=== PATIENT | male | born 1955 | race Caucasian/White ===

== ENCOUNTER 2016-08-05 16:05 | Inpatient (IN) | payer OTHER, BC ==
--- NOTE | 2016-08-05 16:14 | PDOC ---
History of Present Illness - General History Source: Patient Exam Limitations: No Limitations - History of Present Illness Initial Comments: 08/05/16 16:23 The patient is a 60 year old male with a significant past medical history of asthma/COPD, dystonia, HTN, neurogenic bladder s/p suprapubic catheter placement (10 years) who presents to the ED with complaints of fever since earlier today. The patient reports he woke up this morning freezing cold. Upon arrival to the ED the patient had a fever of 102.6 F. The patient also reports pain to the suprapubic area, at the site of the catheter. Patient states he got the flu shot this year. Denies chest pain or shortness of breath. Denies any other symptoms. <Treasure Rodriguez - Last Filed: 08/05/16 18:40> <Haile Walker - Last Filed: 08/05/16 19:12> - General Stated Complaint: FEVER Time Seen by Provider: 08/05/16 16:14 Past History <Treasure Rodriguez - Last Filed: 08/05/16 18:40> - Past Medical History Asthma: Yes COPD: Yes GI Disorders: Yes (GERD) Disorders: Yes (NEUROGENIC BLADDER) HTN: Yes - Surgical History GI Surgery: Yes (supra pubic sx) Neurologic Surgery: Yes (cervical fusion) Orthopedic Surgery: Yes - Immunization History Immunization Up to Date: Yes - Psycho/Social/Smoking Cessation Hx Anxiety: No Suicidal Ideation: No Smoking History: Never smoked Have you smoked in the past 12 months: No Number of Cigarettes Smoked Daily: 0 Cigars Per Day: 0 Hx Alcohol Use: No Drug/Substance Use Hx: No Substance Use Type: Alcohol Hx Substance Use Treatment: No <Haile Walker - Last Filed: 08/05/16 19:12> - Past Medical History Allergies/Adverse Reactions: Allergies Allergy/AdvReac Type Severity Reaction Status Date / Time iodine Allergy Severe Low Blood Verified 08/05/16 16:13 Pressure kiwi Allergy Intermediate Swelling Verified 08/05/16 16:13 ampicillin sodium Allergy Rash Verified 08/05/16 16:13 [From Unasyn] Fish Containing Products Allergy Difficulty Verified 08/05/16 16:13 Breathing Penicillins Allergy Rash Verified 08/05/16 16:13 sulbactam sodium Allergy Rash Verified 08/05/16 16:13 [From Unasyn] Sulfa (Sulfonamide Allergy Hives Verified 08/05/16 16:13 Antibiotics) [Sulfa(Sulfonamide Antibiotics)] Home Medications: Ambulatory Orders Diazepam [Valium] 5 mg GT TID 04/23/14 Albuterol Sulfate [Proair Hfa -] 1 - 2 inh PO QID PRN 04/12/15 Budesonide/Formeterol Fumarate [SYMBICORT 160/4.5mcg -] 2 inh PO BID 04/12/15 Methenamine/Sodium Salicylate [Cystex Plus Tablet] 1 each GT DAILY 04/12/15 Heparin - 5,000 unit SQ BID vial 04/25/16 Albuterol 0.083% Nebulizer Jojo [Ventolin 0.083% Nebulizer Soln -] 1 amp NEB TID PRN 08/05/16 Docusate Sodium [Colace -] 300 mg GT HS 08/05/16 Metoclopramide HCl 5 mg GT BID 08/05/16 Polyethylene Glycol 3350 [Miralax (For Daily Use) -] 17 gm GT DAILY PRN Ranitidine [Zantac -] 150 mg GT BID 08/05/16 Tramadol HCl 50 mg GT Q6H PRN 08/05/16 Review of Systems - Review of Systems Able to Perform ROS?: Yes Comments:: 08/05/16 16:23 GENERAL/CONSTITUTIONAL: + fever. No weakness. HEAD, EYES, EARS, NOSE AND THROAT: No change in vision. No ear pain or discharge. No sore throat. CARDIOVASCULAR: No chest pain or shortness of breath. RESPIRATORY: No cough, wheezing, or hemoptysis. GASTROINTESTINAL: No nausea, vomiting, diarrhea or constipation. GENITOURINARY:+ suprapubic pain. No dysuria, frequency, or change in urination. MUSCULOSKELETAL: No joint or muscle swelling or pain. No neck or back pain. SKIN: No rash NEUROLOGIC: No headache, vertigo, loss of consciousness, or change in strength/ sensation. ENDOCRINE: No increased thirst. No abnormal weight change. HEMATOLOGIC/LYMPHATIC: No anemia, easy bleeding, or history of blood clots. ALLERGIC/IMMUNOLOGIC: No hives or skin allergy. All Other Systems: Reviewed and Negative <Treasure Rodriguez - Last Filed: 08/05/16 18:40> *Physical Exam - Physical Exam Comments: 08/05/16 16:23 GENERAL: Awake, alert, and fully oriented, in no acute distress HEAD: No signs of trauma EYES: PERRLA, EOMI, sclera anicteric, conjunctiva clear ENT: Auricles normal inspection, hearing grossly normal, nares patent, oropharynx clear without exudates. Moist mucosa NECK: Normal ROM, supple, no lymphadenopathy, JVD, or masses LUNGS: Breath sounds equal, clear to auscultation bilaterally. No wheezes, and no crackles HEART: Regular rate and rhythm, normal S1 and S2, no murmurs, rubs or gallops ABDOMEN: Soft, nontender, normoactive bowel sounds. No guarding, no rebound. No masses PELVIS: + Suprapubic catheter in place, suprapubic pain EXTREMITIES: Normal range of motion, no edema. No clubbing or cyanosis. No cords, erythema, or tenderness NEUROLOGICAL: Cranial nerves II through XII grossly intact. Normal speech, normal gait SKIN: Warm, Dry, normal turgor, no rashes or lesions noted. <Treasure Rodriguez - Last Filed: 08/05/16 18:40> Heart Score/ECG Review #1 08/05/16 18:40 Vent. rate 73 bpm AL interval 154 ms QRS duration 136 ms Normal sinus rhythm Right bundle branch block Left anterior fascicular block <Treasure Rodriguez - Last Filed: 08/05/16 18:40> ED Treatment Course - LABORATORY CBC & Chemistry Diagram: 08/05/16 17:20 08/05/16 17:20 <Treasure Rodriguez - Last Filed: 08/05/16 18:40> - LABORATORY CBC & Chemistry Diagram: 08/05/16 17:20 08/05/16 17:20 <Haile Walker - Last Filed: 08/05/16 19:12> *DC/Admit/Observation/Transfer - Attestations Scribe Attestion: 08/05/16 16:23 Documentation prepared by Treasure Rodriguez, acting as medical services assistant for Haile Walker MD <Treasure Rodriguez - Last Filed: 08/05/16 18:40> - Discharge Dispostion Admit: Yes - Attestations Physician Attestion: 08/05/16 16:14 I, Dr. Haile Walker, attest that this document has been prepared under my direction and personally reviewed by me in its entirety. I further attest, that it accurately reflects all work, treatment, procedures and medical decision -making performed by me. <Haile Walker - Last Filed: 08/05/16 19:12> Diagnosis at time of Disposition: Urinary tract infection after period of immobility Fever Qualifiers: Fever type: unspecified Qualified Code(s): R50.9 - Fever, unspecified Urinary tract infection Qualifiers: Urinary tract infection type: acute cystitis Hematuria presence: without hematuria Qualified Code(s): N30.00 - Acute cystitis without hematuria Suprapubic catheter dysfunction Qualifiers: Encounter type: sequela Qualified Code(s): T83.010S - Breakdown (mechanical) of cystostomy catheter, sequela - Discharge Dispostion Condition at time of disposition: Improved - Referrals Referrals: Abad Tanner MD [Primary Care Provider] -
[2016-08-05] MEDS ORDERED: SODIUM CHLORIDE 0.9% 1000 ML INFUS.BAG IV STA (16:20)
[2016-08-05] MEDS ORDERED: LEVOFLOXACIN 750 MG IVPB 150 ML IVPB ONE ×2 (16:22→16:28)
[2016-08-05] MEDS ORDERED: ACETAMINOPHEN 1000 MG/100 ML VIAL (NON FORMULARY) IVPB ONE (16:37)
[2016-08-05 17:27] VITALS: BMI 16.5
[2016-08-05 17:30] LABS: BASOPHIL 0.2 % (0-2.0); EOSINOPHIL 0.3 % (0-4.5); MCH 32.5 pg (25.7-33.7); MCHC 34.4 g/dl (32.0-35.9); MEAN CELL VOLUME 94.5 fl (80-96); MEAN PLT VOLUME 9.2 fl (7.5-11.1); NEUTROPHILS 84.9 % (42.8-82.8); PLATELET COUNT 194 K/MM3 (134-434); RDW 12.4 % (11.9-15.9); WHITE BLOOD COUNT 15.5 K/mm3 (4.0-10.0)
[2016-08-05 17:35] LABS: URINE APPEARANCE SLCLOUDY; URINE BILIRUBIN NEGATIVE (NEGATIVE); URINE BLOOD NEGATIVE (NEGATIVE); URINE COLOR YELLOW; URINE GLUCOSE (UA) NEGATIVE (NEGATIVE); URINE KETONE NEGATIVE (NEGATIVE); URINE LEUK ESTERASE 2+ (NEGATIVE); URINE NITRITE POSITIVE (NEGATIVE); URINE PROTEIN 1+ (NEGATIVE); URINE UROBILINOGEN NEGATIVE E.U./dl (0.2-1.0)
[2016-08-05 17:38] LABS: URINE MUCUS RARE; URINE RBC 5 /hpf (0-3); URINE WBC 58 /hpf (3-5)
[2016-08-05] MEDS ORDERED: ACETAMINOPHEN INJECTION 100 ML IVPB ONE (17:40)
[2016-08-05 17:42] LABS: INR 1.13 (0.82-1.09); PROTHROMBIN TIME (PATIENT) 12.5 SEC (9.98-11.88)
[2016-08-05 17:44] LABS: ACTIVATED PTT 31.2 SECONDS (26.9-34.4)
[2016-08-05 17:53] LABS: VENOUS PH 7.44 (7.32-7.42)
[2016-08-05 17:57] LABS: ALBUMIN 3.8 g/dl (3.4-5.0); ANION GAP 8 (8-16); CALCIUM 8.7 mg/dL (8.5-10.1); CO2 28 mmol/L (21-32); CREATININE 0.7 mg/dL (0.7-1.3); GLUCOSE,RANDOM 61 mg/dL (74-106); SGPT/ALT 42 U/L (12-78)
[2016-08-05 18:01] LABS: ALK PHOS 71 U/L (45-117); BILIRUBIN,TOTAL 0.9 mg/dL (0.2-1.0); TOT PROT 6.8 g/dl (6.4-8.2); TROPONIN I < 0.02 ng/ml (0.00-0.05)
[2016-08-05 18:02] LABS: SGOT/AST 31 U/L (15-37)
[2016-08-05] MEDS ORDERED: ALBUTEROL SO4 6.7 GM HFA INHALER IH PRN (20:18)
[2016-08-05] MEDS ORDERED: POLYETHYLENE GLYCOL 3350 119 GM BTL GT PRN (20:18)
[2016-08-05] MEDS ORDERED: ALBUTEROL SO4 0.083% IH SOL 2.5 MG/3 ML VIAL.NEB. NEB PRN (20:18)
[2016-08-05] MEDS ORDERED: ACETAMINOPHEN 650 MG/20.3 ML ORAL SOLUTION (CUPS) PEG PRN (20:29)
--- NOTE | 2016-08-05 21:53 | HP ---
Admitting History and Physical - Admission Chief Complaint: suprapubic pain, fever History of Present Illness: 60 yo male, h/o dystonia, status-suprapubic catheter, status PEG tube, presents with pain in suprapubic area of burning quality, which he relates similar to prior UTI's. Also having fever of 102. Due to dystonia, resides at nursing facility, transferred due to fever. 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: Other (Muscular dystonia since age 21 year) Cardiovascular: Yes: HTN Pulmonary: Yes: Asthma, Pneumonia, Sleep Apnea, Other (Cavitary lesion in lung ruled out for TB) Gastrointestinal: Yes: Constipation, GERD, Other (dysphagia) Hepatobiliary: Yes: Other (as noted in medical record.) Renal/: Yes: BPH (s/p thermal prostate procedure), Neurogenic Bladder ( suprapubic tube ), UTI Heme/Onc: Yes: Other (as noted in medical record) Infectious Disease: Yes: Other (influenza b august 2013) Psych: Yes: Depression Musculoskeletal: Yes: Other (Muscular dystonia) - Past Surgical History Past Surgical History: Yes: Laminectomy (cervical laminectomy with fusion) - Smoking History Smoking history: Never smoked Have you smoked in the past 12 months: No Aproximately how many cigarettes per day: 0 - Alcohol/Substance Use Hx Alcohol Use: No History of Substance Use: reports: None, Marijuana (years ago. 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 History of Recent Travel: No Home Medications - Allergies Allergies/Adverse Reactions: Allergies Allergy/AdvReac Type Severity Reaction Status Date / Time iodine Allergy Severe Low Blood Verified 08/05/16 16:13 Pressure kiwi Allergy Intermediate Swelling Verified 08/05/16 16:13 ampicillin sodium Allergy Rash Verified 08/05/16 16:13 [From Unasyn] Fish Containing Products Allergy Difficulty Verified 08/05/16 16:13 Breathing Penicillins Allergy Rash Verified 08/05/16 16:13 sulbactam sodium Allergy Rash Verified 08/05/16 16:13 [From Unasyn] Sulfa (Sulfonamide Allergy Hives Verified 08/05/16 16:13 Antibiotics) [Sulfa(Sulfonamide Antibiotics)] - Home Medications Home Medications: Ambulatory Orders Diazepam [Valium] 5 mg GT TID 04/23/14 Albuterol Sulfate [Proair Hfa -] 1 - 2 inh PO QID PRN 04/12/15 Budesonide/Formeterol Fumarate [SYMBICORT 160/4.5mcg -] 2 inh PO BID 04/12/15 Methenamine/Sodium Salicylate [Cystex Plus Tablet] 1 each GT DAILY 04/12/15 Heparin - 5,000 unit SQ BID vial 04/25/16 Albuterol 0.083% Nebulizer Jojo [Ventolin 0.083% Nebulizer Soln -] 1 amp NEB TID PRN 08/05/16 Docusate Sodium [Colace -] 300 mg GT HS 08/05/16 Metoclopramide HCl 5 mg GT BID 08/05/16 Polyethylene Glycol 3350 [Miralax (For Daily Use) -] 17 gm GT DAILY PRN Ranitidine [Zantac -] 150 mg GT BID 08/05/16 Tramadol HCl 50 mg GT Q6H PRN 08/05/16 Family Disease History - Family Disease History Family Disease History: Diabetes: Father (mild cognitive decline), Heart Disease : Father, CA: Mother (, colon cancer), Other: Father Review of Systems - Review of Systems Constitutional: reports: Fever Eyes: reports: No Symptoms HENT: reports: Difficult Swallowing (feeds via G-tube) Neck: reports: Stiffness (due to dystonia) Cardiovascular: denies: Chest Pain, Palpitations Respiratory: denies: Cough, SOB, Wheezing Gastrointestinal: denies: Diarrhea, Nausea, Vomiting Neurological: reports: Pre-Existing Deficit (muscular dystonia) Physical Examination Vital Signs: Vital Signs Temperature 98.7 F 08/05/16 20:46 Pulse Rate 62 08/05/16 20:46 Respiratory Rate 20 08/05/16 20:46 Blood Pressure 112/60 08/05/16 20:46 O2 Sat by Pulse Oximetry (%) 95 08/05/16 20:46 Constitutional: Yes: No Distress, Calm Eyes: Yes: Conjunctiva Clear, EOM Intact, PERRL HENT: Yes: Atraumatic, Normocephalic Neck: Yes: Supple, Trachea Midline Cardiovascular: Yes: Regular Rate and Rhythm, S1, S2. No: Murmur Respiratory: Yes: Regular, CTA Bilaterally. No: Rales, Rhonchi, Wheezes Gastrointestinal: Yes: Normal Bowel Sounds, Soft, Other (G-tube present). No: Distention, Tenderness Renal/: Yes: Other (suprapubic tube present) Edema: No Neurological: Yes: Alert, Oriented, Pre-Existing Deficit (paresis due to dystonia) Labs: Laboratory Tests 08/05/16 08/05/16 08/05/16 17:20 17:20 17:20 WBC 15.5 H D RBC 4.36 Hgb 14.2 D Hct 41.2 D MCV 94.5 MCHC 34.4 RDW 12.4 D Plt Count 194 D MPV 9.2 D Neutrophils % 84.9 H Lymphocytes % 4.6 L D Monocytes % 10.0 Eosinophils % 0.3 Basophils % 0.2 INR 1.13 PTT (Actin FS) 31.2 VBG pH POC VBG pCO2 POC VBG pO2 Mixed VBG HCO3 Sodium Potassium Chloride Carbon Dioxide Anion Gap BUN Creatinine Creat Clearance w eGFR Random Glucose Lactic Acid Calcium Total Bilirubin AST ALT Alkaline Phosphatase Creatine Kinase Troponin I Total Protein Albumin Urine Color Yellow Urine Appearance Slcloudy Urine pH 9.0 H D Ur Specific [place] 1.018 Urine Protein 1+ H Urine Glucose (UA) Negative Urine Ketones Negative Urine Blood Negative Urine Nitrite Positive Urine Bilirubin Negative Urine Urobilinogen Negative Ur Leukocyte Esterase 2+ H D Urine RBC 5 Urine WBC 58 Ur Epithelial Cells Rare Urine Mucus Rare Blood Type Antibody Screen 08/05/16 08/05/16 08/05/16 17:20 17:20 17:20 WBC RBC Hgb Hct MCV MCHC RDW Plt Count MPV Neutrophils % Lymphocytes % Monocytes % Eosinophils % Basophils % INR PTT (Actin FS) VBG pH POC VBG pCO2 POC VBG pO2 Mixed VBG HCO3 Sodium 135 L Potassium 4.4 Chloride 99 Carbon Dioxide 28 Anion Gap 8 BUN 23 H Creatinine 0.7 D Creat Clearance w eGFR > 60 Random Glucose 61 L D Lactic Acid 0.945 Calcium 8.7 Total Bilirubin 0.9 D AST 31 ALT 42 D Alkaline Phosphatase 71 D Creatine Kinase 86 Troponin I < 0.02 Total Protein 6.8 D Albumin 3.8 D Urine Color Urine Appearance Urine pH Ur Specific [place] Urine Protein Urine Glucose (UA) Urine Ketones Urine Blood Urine Nitrite Urine Bilirubin Urine Urobilinogen Ur Leukocyte Esterase Urine RBC Urine WBC Ur Epithelial Cells Urine Mucus Blood Type A POSITIVE Antibody Screen Negative 08/05/16 17:40 WBC RBC Hgb Hct MCV MCHC RDW Plt Count MPV Neutrophils % Lymphocytes % Monocytes % Eosinophils % Basophils % INR PTT (Actin FS) VBG pH 7.44 H POC VBG pCO2 45.2 POC VBG pO2 43.3 D Mixed VBG HCO3 30.0 H Sodium Potassium Chloride Carbon Dioxide Anion Gap BUN Creatinine Creat Clearance w eGFR Random Glucose Lactic Acid Calcium Total Bilirubin AST ALT Alkaline Phosphatase Creatine Kinase Troponin I Total Protein Albumin Urine Color Urine Appearance Urine pH Ur Specific [place] Urine Protein Urine Glucose (UA) Urine Ketones Urine Blood Urine Nitrite Urine Bilirubin Urine Urobilinogen Ur Leukocyte Esterase Urine RBC Urine WBC Ur Epithelial Cells Urine Mucus Blood Type Antibody Screen Imaging - Results Chest X-ray: Image Reviewed (no acute ling disease, no infiltrates or effusions) Problem List - Problems (1) Urinary tract infection Assessment/Plan: -start abx, check urine culture Code(s): N39.0 - URINARY TRACT INFECTION, SITE NOT SPECIFIED Qualifiers: Urinary tract infection type: acute cystitis Hematuria presence: without hematuria Qualified Code(s): N30.00 - Acute cystitis without hematuria (2) Suprapubic catheter dysfunction Assessment/Plan: -urology consult for suprapubic catheter change Code(s): T83.018A - BREAKDOWN (MECHANICAL) OF OTHER URINARY CATHETER, INIT Qualifiers: Encounter type: sequela Qualified Code(s): T83.010S - Breakdown ( mechanical) of cystostomy catheter, sequela (3) COPD (chronic obstructive pulmonary disease) Assessment/Plan: -cont prn bronchodilators Code(s): J44.9 - CHRONIC OBSTRUCTIVE PULMONARY DISEASE, UNSPECIFIED Qualifiers : Chronic bronchitis type: unspecified (4) Cavitary lesion of lung Assessment/Plan: -stable (s/p VATS) Code(s): J98.4 - OTHER DISORDERS OF LUNG (5) Dysphagia Assessment/Plan: -PEG tube present/ Peg feeds Code(s): R13.10 - DYSPHAGIA, UNSPECIFIED (6) Dystonia Assessment/Plan: -has PEG and Suprapubic catheter Code(s): G24.9 - DYSTONIA, UNSPECIFIED (7) Neurogenic bladder Assessment/Plan: -suprapubic catheter present Code(s): N31.9 - NEUROMUSCULAR DYSFUNCTION OF BLADDER, UNSPECIFIED
[2016-08-05] MEDS ORDERED: DOCUSATE SODIUM 100 MG CAPSULE (FP) PO SCH (22:00)
[2016-08-05] MEDS: METOCLOPRAMIDE HCL 5 MG/5 ML UNIT DOSE CUP GT SCH (22:55)
[2016-08-05] MEDS: HEPARIN NA (PORCINE) 5,000 UNITS/ML 1ML VIAL SQ SCH (22:55)
[2016-08-05] MEDS: traMADol HCL 50 MG TABLET PEG PRN (22:56)
[2016-08-05] MEDS: diazePAM 5 MG TABLET GT SCH (22:57)
[2016-08-06] MEDS: DOCUSATE NA 100 MG/10 ML UNIT-DOSE CUPS PO SCH ×2 (02:33→21:14)
[2016-08-06] MEDS: BUDESONIDE/FORMETEROL FUMARATE 160/4.5 mcg INHALER IH SCH ×3 (02:33→21:18)
[2016-08-06] MEDS: diazePAM 5 MG TABLET GT SCH ×3 (05:40→21:18)
[2016-08-06] MEDS: traMADol HCL 50 MG TABLET PEG PRN (05:40)
[2016-08-06 08:12] LABS: BASOPHIL 0.4 % (0-2.0); MCH 32.5 pg (25.7-33.7); MEAN CELL VOLUME 95.7 fl (80-96); MEAN PLT VOLUME 8.6 fl (7.5-11.1); NEUTROPHILS 55.5 % (42.8-82.8); PLATELET COUNT 162 K/MM3 (134-434); RDW 12.3 % (11.9-15.9); WHITE BLOOD COUNT 7.1 K/mm3 (4.0-10.0)
[2016-08-06 08:30] LABS: ALBUMIN 3.1 g/dl (3.4-5.0); ALK PHOS 58 U/L (45-117); ANION GAP 5 (8-16); BILIRUBIN,TOTAL 0.7 mg/dL (0.2-1.0); CALCIUM 8.2 mg/dL (8.5-10.1); CO2 30 mmol/L (21-32); CREATININE 0.6 mg/dL (0.7-1.3); GLUCOSE,RANDOM 73 mg/dL (74-106); SGOT/AST 16 U/L (15-37); SGPT/ALT 30 U/L (12-78); TOT PROT 5.6 g/dl (6.4-8.2)
[2016-08-06] MEDS: RANITIDINE HCL 150 MG/10 ML UNIT-DOSE CUP PEG SCH (09:46)
[2016-08-06] MEDS: HEPARIN NA (PORCINE) 5,000 UNITS/ML 1ML VIAL SQ SCH ×2 (09:46→21:15)
[2016-08-06] MEDS: LEVOFLOXACIN 500 MG IVPB 100 ML IVPB SCH (09:47)
[2016-08-06] MEDS: METOCLOPRAMIDE HCL 5 MG/5 ML UNIT DOSE CUP GT SCH ×2 (09:48→21:17)
--- NOTE | 2016-08-06 12:12 | PN ---
Progress Note, Physician Chief Complaint: Mr Nash says he is doing well and is without complaints. Denies chest pain , shortness of breath, nausea/vomiting. Currently is not having pain. - Current Medication List Current Medications: Active Medications Acetaminophen (Tylenol Oral Solution -) 650 mg PEG Q4H PRN PRN Reason: FEVER OR PAIN Albuterol Sulfate (Ventolin 0.083% Nebulizer Soln -) 1 amp NEB TID PRN PRN Reason: SHORT OF BREATH/WHEEZING Albuterol Sulfate (Ventolin Hfa Inhaler -) 2 puff IH Q4H PRN PRN Reason: ASTHMA Budesonide/Formoterol Fumarate (Symbicort 160/4.5mcg -) 2 puff IH BID [facility] Last Admin: 08/06/16 02:33 Dose: Not Given Diazepam (Valium -) 5 mg GT TID [facility] Last Admin: 08/06/16 05:40 Dose: 5 mg Docusate Sodium (Colace Liquid -) 300 mg PO HS [facility] Last Admin: 08/06/16 02:33 Dose: Not Given Heparin Sodium (Porcine) (Heparin -) 5,000 unit SQ BID [facility] Last Admin: 08/06/16 09:46 Dose: 5,000 unit Levofloxacin (Levaquin 500 Mg Premixed Ivpb -) 100 mls @ 100 mls/hr IVPB DAILY [facility] Last Admin: 08/06/16 09:47 Dose: 100 mls/hr Metoclopramide HCl (Reglan Oral Solution -) 5 mg GT BID [facility] Last Admin: 08/06/16 09:48 Dose: 5 mg Polyethylene Glycol (Miralax (For Daily Use) -) 17 gm GT DAILY PRN PRN Reason: CONSTIPATION Ranitidine HCl (Zantac Oral Solution -) 150 mg PEG DAILY [facility] Last Admin: 08/06/16 09:46 Dose: 150 mg Tramadol HCl (Ultram -) 50 mg PEG Q6H PRN PRN Reason: PAIN Last Admin: 08/06/16 05:40 Dose: 50 mg - Objective Vital Signs: Vital Signs Temperature 97.7 F 08/06/16 10:46 Pulse Rate 55 L 08/06/16 10:46 Respiratory Rate 18 08/06/16 10:46 Blood Pressure 101/55 08/06/16 10:46 O2 Sat by Pulse Oximetry (%) 96 08/06/16 09:00 Constitutional: Yes: No Distress, Calm, Thin Cardiovascular: Yes: Regular Rate and Rhythm. No: Gallop, Murmur, Rub Respiratory: Yes: Regular, CTA Bilaterally. No: Rales, Rhonchi, Wheezes Gastrointestinal: Yes: Normal Bowel Sounds, Soft. No: Distention, Tenderness Extremities: Yes: WNL Edema: No Labs: CBC, BMP 08/06/16 06:50 08/06/16 06:50 INR, PTT INR 1.13 (0.82-1.09) 08/05/16 17:20 Assessment/Plan (1) Urinary tract infection with sepsis Assessment/Plan: -improved -continue levaquin currently -follow up urine cultures as may need different antibiotics Code(s): N39.0 - URINARY TRACT INFECTION, SITE NOT SPECIFIED Qualifiers: Urinary tract infection type: acute cystitis Hematuria presence: without hematuria Qualified Code(s): N30.00 - Acute cystitis without hematuria (2) Suprapubic catheter dysfunction Assessment/Plan: -urology consulted -awaiting recommendations concerning catheter change Code(s): T83.018A - BREAKDOWN (MECHANICAL) OF OTHER URINARY CATHETER, INIT Qualifiers: Encounter type: sequela Qualified Code(s): T83.010S - Breakdown ( mechanical) of cystostomy catheter, sequela (3) COPD (chronic obstructive pulmonary disease) Assessment/Plan: -not in exacerbation -continue current regimen Code(s): J44.9 - CHRONIC OBSTRUCTIVE PULMONARY DISEASE, UNSPECIFIED Qualifiers : Chronic bronchitis type: unspecified (4) Cavitary lesion of lung Assessment/Plan: -stable (s/p VATS) Code(s): J98.4 - OTHER DISORDERS OF LUNG (5) Dysphagia Assessment/Plan: -PEG tube present/ Peg feeds Code(s): R13.10 - DYSPHAGIA, UNSPECIFIED (6) Dystonia Assessment/Plan: -has PEG and Suprapubic catheter Code(s): G24.9 - DYSTONIA, UNSPECIFIED (7) Neurogenic bladder Assessment/Plan: -suprapubic catheter present Code(s): N31.9 - NEUROMUSCULAR DYSFUNCTION OF BLADDER, UNSPECIFIED
[2016-08-06] MEDS ORDERED: PT OWN MED DRAWER 7, Y5N ONE (20:31)
[2016-08-07] MEDS: diazePAM 5 MG TABLET GT SCH ×3 (06:37→22:28)
[2016-08-07 08:05] LABS: BASOPHIL 0.4 % (0-2.0); EOSINOPHIL 6.6 % (0-4.5); MCH 32.6 pg (25.7-33.7); MCHC 34.1 g/dl (32.0-35.9); MEAN CELL VOLUME 95.7 fl (80-96); NEUTROPHILS 51.2 % (42.8-82.8); PLATELET COUNT 179 K/MM3 (134-434); RDW 12.5 % (11.9-15.9); WHITE BLOOD COUNT 6.4 K/mm3 (4.0-10.0)
[2016-08-07 08:40] LABS: CALCIUM 8.6 mg/dL (8.5-10.1); MAGNESIUM 2.4 mg/dL (1.8-2.4)
[2016-08-07 08:41] LABS: CREATININE 0.5 mg/dL (0.7-1.3); PHOSPHOROUS 3.4 mg/dL (2.5-4.9)
[2016-08-07] MEDS ORDERED: PT OWN MED DRAWER 7, Y5N ONE (09:08)
[2016-08-07] MEDS: BUDESONIDE/FORMETEROL FUMARATE 160/4.5 mcg INHALER IH SCH ×3 (09:10→22:28)
[2016-08-07] MEDS: METOCLOPRAMIDE HCL 5 MG/5 ML UNIT DOSE CUP GT SCH ×2 (09:11→22:28)
[2016-08-07] MEDS: HEPARIN NA (PORCINE) 5,000 UNITS/ML 1ML VIAL SQ SCH ×2 (09:11→22:26)
[2016-08-07] MEDS: LEVOFLOXACIN 500 MG IVPB 100 ML IVPB SCH (09:11)
[2016-08-07] MEDS: RANITIDINE HCL 150 MG/10 ML UNIT-DOSE CUP PEG SCH (09:11)
--- NOTE | 2016-08-07 12:39 | PN ---
Progress Note, Physician Chief Complaint: Mr Nash says he is doing well. No cp, sob, n/v. No abdominal pain. - Current Medication List Current Medications: Active Medications Acetaminophen (Tylenol Oral Solution -) 650 mg PEG Q4H PRN PRN Reason: FEVER OR PAIN Albuterol Sulfate (Ventolin 0.083% Nebulizer Soln -) 1 amp NEB TID PRN PRN Reason: SHORT OF BREATH/WHEEZING Albuterol Sulfate (Ventolin Hfa Inhaler -) 2 puff IH Q4H PRN PRN Reason: ASTHMA Budesonide/Formoterol Fumarate (Symbicort 160/4.5mcg -) 2 puff IH BID [facility] Last Admin: 08/07/16 09:12 Dose: Not Given Diazepam (Valium -) 5 mg GT TID [facility] Last Admin: 08/07/16 06:37 Dose: 5 mg Docusate Sodium (Colace Liquid -) 300 mg PO HS [facility] Last Admin: 08/06/16 21:14 Dose: 300 mg Heparin Sodium (Porcine) (Heparin -) 5,000 unit SQ BID [facility] Last Admin: 08/07/16 09:11 Dose: 5,000 unit Levofloxacin (Levaquin 500 Mg Premixed Ivpb -) 100 mls @ 100 mls/hr IVPB DAILY [facility] Last Admin: 08/07/16 09:11 Dose: 100 mls/hr Metoclopramide HCl (Reglan Oral Solution -) 5 mg GT BID [facility] Last Admin: 08/07/16 09:11 Dose: 5 mg Polyethylene Glycol (Miralax (For Daily Use) -) 17 gm GT DAILY PRN PRN Reason: CONSTIPATION Ranitidine HCl (Zantac Oral Solution -) 150 mg PEG DAILY [facility] Last Admin: 08/07/16 09:11 Dose: 150 mg Tramadol HCl (Ultram -) 50 mg PEG Q6H PRN PRN Reason: PAIN Last Admin: 08/06/16 05:40 Dose: 50 mg - Objective Vital Signs: Vital Signs Temperature 98.7 F 08/07/16 09:44 Pulse Rate 62 08/07/16 09:44 Respiratory Rate 18 08/07/16 09:44 Blood Pressure 98/50 08/07/16 09:44 O2 Sat by Pulse Oximetry (%) 91 L 08/06/16 21:00 Constitutional: Yes: No Distress, Calm, Thin Cardiovascular: Yes: Regular Rate and Rhythm. No: Gallop, Murmur, Rub Respiratory: Yes: Regular, CTA Bilaterally. No: Rales, Rhonchi, Wheezes Gastrointestinal: Yes: Normal Bowel Sounds, Soft. No: Distention, Tenderness Extremities: Yes: WNL Edema: No Labs: CBC, BMP 08/07/16 06:50 08/07/16 06:50 INR, PTT INR 1.13 (0.82-1.09) 08/05/16 17:20 Assessment/Plan (1) Urinary tract infection with sepsis Assessment/Plan: -stable -continue levaquin -follow up cultures, currently growing gram negative rods Code(s): N39.0 - URINARY TRACT INFECTION, SITE NOT SPECIFIED Qualifiers: Urinary tract infection type: acute cystitis Hematuria presence: without hematuria Qualified Code(s): N30.00 - Acute cystitis without hematuria (2) Suprapubic catheter dysfunction Assessment/Plan: -urology consulted and will see today Code(s): T83.018A - BREAKDOWN (MECHANICAL) OF OTHER URINARY CATHETER, INIT Qualifiers: Encounter type: sequela Qualified Code(s): T83.010S - Breakdown ( mechanical) of cystostomy catheter, sequela (3) COPD (chronic obstructive pulmonary disease) Assessment/Plan: -not in exacerbation -continue current regimen Code(s): J44.9 - CHRONIC OBSTRUCTIVE PULMONARY DISEASE, UNSPECIFIED Qualifiers : Chronic bronchitis type: unspecified (4) Cavitary lesion of lung Assessment/Plan: -stable (s/p VATS) Code(s): J98.4 - OTHER DISORDERS OF LUNG (5) Dysphagia Assessment/Plan: -PEG tube present/ Peg feeds Code(s): R13.10 - DYSPHAGIA, UNSPECIFIED (6) Dystonia Assessment/Plan: -has PEG and Suprapubic catheter Code(s): G24.9 - DYSTONIA, UNSPECIFIED (7) Neurogenic bladder Assessment/Plan: -suprapubic catheter present Code(s): N31.9 - NEUROMUSCULAR DYSFUNCTION OF BLADDER, UNSPECIFIED
--- NOTE | 2016-08-07 17:15 | EKG ---
Test Reason : Blood Pressure : / mmHG Vent. Rate : 073 BPM Atrial Rate : 073 BPM P-R Int : 154 ms QRS Dur : 136 ms QT Int : 428 ms P-R-T Axes : 080 -61 066 degrees QTc Int : 471 ms NORMAL SINUS RHYTHM RIGHT BUNDLE BRANCH BLOCK LEFT ANTERIOR FASCICULAR BLOCK BIFASCICULAR BLOCK ABNORMAL ECG WHEN COMPARED WITH ECG OF 12-APR-2016 11:47, PREMATURE VENTRICULAR COMPLEXES ARE NO LONGER PRESENT T WAVE VARIATION Confirmed by NICKY AGUILAR MD ([id number]) on 08/07/2016 5:15:22 PM Referred By: Confirmed By:NICKY AGUILAR MD
[2016-08-07] MEDS: traMADol HCL 50 MG TABLET PEG PRN (18:52)
[2016-08-07] MEDS: DOCUSATE NA 100 MG/10 ML UNIT-DOSE CUPS PO SCH (22:26)
[2016-08-08] MEDS: diazePAM 5 MG TABLET GT SCH ×3 (06:30→22:30)
[2016-08-08 07:20] LABS: BASOPHIL 0.3 % (0-2.0); EOSINOPHIL 6.4 % (0-4.5); MCH 32.8 pg (25.7-33.7); MCHC 33.9 g/dl (32.0-35.9); MEAN CELL VOLUME 96.6 fl (80-96); MEAN PLT VOLUME 8.6 fl (7.5-11.1); NEUTROPHILS 51.1 % (42.8-82.8); PLATELET COUNT 179 K/MM3 (134-434); RDW 12.6 % (11.9-15.9); WHITE BLOOD COUNT 6.2 K/mm3 (4.0-10.0)
[2016-08-08 09:29] LABS: CALCIUM 8.9 mg/dL (8.5-10.1); CREATININE 0.6 mg/dL (0.7-1.3); MAGNESIUM 2.3 mg/dL (1.8-2.4); PHOSPHOROUS 3.7 mg/dL (2.5-4.9)
[2016-08-08] MEDS ORDERED: PT OWN MED DRAWER 7, Y5N ONE ×3 (10:42→22:01)
[2016-08-08] MEDS: HEPARIN NA (PORCINE) 5,000 UNITS/ML 1ML VIAL SQ SCH ×2 (10:45→22:29)
[2016-08-08] MEDS: RANITIDINE HCL 150 MG/10 ML UNIT-DOSE CUP PEG SCH (10:45)
[2016-08-08] MEDS: LEVOFLOXACIN 500 MG IVPB 100 ML IVPB SCH (10:46)
[2016-08-08] MEDS: METOCLOPRAMIDE HCL 5 MG/5 ML UNIT DOSE CUP GT SCH ×2 (10:46→22:29)
[2016-08-08] MEDS: BUDESONIDE/FORMETEROL FUMARATE 160/4.5 mcg INHALER IH SCH ×2 (10:48→22:30)
[2016-08-08] MEDS: traMADol HCL 50 MG TABLET PEG PRN (15:00)
--- NOTE | 2016-08-08 15:22 | PN ---
Progress Note, Physician Chief Complaint: Mr Nash says he is doing well. No cp, sob, n/v. - Current Medication List Current Medications: Active Medications Acetaminophen (Tylenol Oral Solution -) 650 mg PEG Q4H PRN PRN Reason: FEVER OR PAIN Albuterol Sulfate (Ventolin 0.083% Nebulizer Soln -) 1 amp NEB TID PRN PRN Reason: SHORT OF BREATH/WHEEZING Albuterol Sulfate (Ventolin Hfa Inhaler -) 2 puff IH Q4H PRN PRN Reason: ASTHMA Budesonide/Formoterol Fumarate (Symbicort 160/4.5mcg -) 2 puff IH BID [facility] Last Admin: 08/08/16 10:48 Dose: Not Given Diazepam (Valium -) 5 mg GT TID [facility] Last Admin: 08/08/16 14:49 Dose: 5 mg Docusate Sodium (Colace Liquid -) 300 mg PO HS [facility] Last Admin: 08/07/16 22:26 Dose: 300 mg Heparin Sodium (Porcine) (Heparin -) 5,000 unit SQ BID [facility] Last Admin: 08/08/16 10:45 Dose: 5,000 unit Levofloxacin (Levaquin 500 Mg Premixed Ivpb -) 100 mls @ 100 mls/hr IVPB DAILY [facility] Last Admin: 08/08/16 10:46 Dose: 100 mls/hr Metoclopramide HCl (Reglan Oral Solution -) 5 mg GT BID [facility] Last Admin: 08/08/16 10:46 Dose: 5 mg Polyethylene Glycol (Miralax (For Daily Use) -) 17 gm GT DAILY PRN PRN Reason: CONSTIPATION Ranitidine HCl (Zantac Oral Solution -) 150 mg PEG DAILY [facility] Last Admin: 08/08/16 10:45 Dose: 150 mg Tramadol HCl (Ultram -) 50 mg PEG Q6H PRN PRN Reason: PAIN Last Admin: 08/07/16 18:52 Dose: 50 mg - Objective Vital Signs: Vital Signs Temperature 99.1 F 08/08/16 14:42 Pulse Rate 83 08/08/16 14:42 Respiratory Rate 20 08/08/16 14:42 Blood Pressure 98/66 08/08/16 14:42 O2 Sat by Pulse Oximetry (%) 96 08/08/16 11:00 Constitutional: Yes: No Distress, Calm, Thin Cardiovascular: Yes: Regular Rate and Rhythm. No: Gallop, Murmur, Rub Respiratory: Yes: Regular, CTA Bilaterally. No: Rales, Rhonchi, Wheezes Gastrointestinal: Yes: Normal Bowel Sounds, Soft. No: Distention, Tenderness Extremities: Yes: WNL Edema: No Labs: CBC, BMP 08/08/16 05:50 08/08/16 05:50 INR, PTT INR 1.13 (0.82-1.09) 08/05/16 17:20 Assessment/Plan (1) Urinary tract infection with sepsis Assessment/Plan: -urine cultures showing pseudomonas, resistant to levaquin -even though improved, will consult ID for further antibiotic treatment Code(s): N39.0 - URINARY TRACT INFECTION, SITE NOT SPECIFIED Qualifiers: Urinary tract infection type: acute cystitis Hematuria presence: without hematuria Qualified Code(s): N30.00 - Acute cystitis without hematuria (2) Suprapubic catheter dysfunction Assessment/Plan: -awaiting urology to change -call placed for this, awaiting response Code(s): T83.018A - BREAKDOWN (MECHANICAL) OF OTHER URINARY CATHETER, INIT Qualifiers: Encounter type: sequela Qualified Code(s): T83.010S - Breakdown ( mechanical) of cystostomy catheter, sequela (3) COPD (chronic obstructive pulmonary disease) Assessment/Plan: -not in exacerbation -continue current regimen Code(s): J44.9 - CHRONIC OBSTRUCTIVE PULMONARY DISEASE, UNSPECIFIED Qualifiers : Chronic bronchitis type: unspecified (4) Cavitary lesion of lung Assessment/Plan: -stable (s/p VATS) Code(s): J98.4 - OTHER DISORDERS OF LUNG (5) Dysphagia Assessment/Plan: -PEG tube present/ Peg feeds Code(s): R13.10 - DYSPHAGIA, UNSPECIFIED (6) Dystonia Assessment/Plan: -has PEG and Suprapubic catheter Code(s): G24.9 - DYSTONIA, UNSPECIFIED (7) Neurogenic bladder Assessment/Plan: -suprapubic catheter present Code(s): N31.9 - NEUROMUSCULAR DYSFUNCTION OF BLADDER, UNSPECIFIED
--- NOTE | 2016-08-08 16:21 | CONSULT ---
Consult Consult Specialty:: infectious diseases Referred by:: Reason for Consultation:: uti - History of Present Illness Chief Complaint: fever History of Present Illness: 60 yo male, h/o dystonia, status-suprapubic catheter, status PEG tube, presents with pain in suprapubic area of burning quality, which he relates similar to prior UTI's. Also having fever of 102. Due to dystonia, resides at nursing facility, transferred due to fever. 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: Other (Muscular dystonia since age 21 year) Cardio/Vascular: Yes: HTN Pulmonary: Yes: Asthma, Pneumonia, Sleep Apnea, Other (Cavitary lesion in lung ruled out for TB) Gastrointestinal: Yes: Constipation, GERD, Other (dysphagia) Hepatobiliary: Yes: Other (as noted in medical record.) Renal/: Yes: BPH (s/p thermal prostate procedure), Neurogenic Bladder ( suprapubic tube ), UTI Infectious Disease: Yes: Other (influenza b august 2013) Psych: Yes: Depression Musculoskeletal: Yes: Other (Muscular dystonia) - Past Surgical History Past Surgical History: Yes: Laminectomy (cervical laminectomy with fusion) - Alcohol/Substance Use Hx Alcohol Use: No History of Substance Use: reports: None, Marijuana (years ago. No current use) Date of Last Use: 05/18/78 (estimated) - Smoking History Smoking history: Never smoked Have you smoked in the past 12 months: No Aproximately how many cigarettes per day: 0 - Social History Usual Living Arrangement: Other (Mr. Richard reports that he was born and raised in [place]. He attended several colleges including [employer], [employer], and [employer]. He briefly attended [employer] but discontinued due to financial reasons. 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 In 1986, Mr. Nash was disabled s/p a weightlifting accident that fractured his neck. 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 History of Recent Travel: No Home Medications - Allergies Allergies/Adverse Reactions: Allergies Allergy/AdvReac Type Severity Reaction Status Date / Time iodine Allergy Severe Low Blood Verified 08/05/16 16:13 Pressure kiwi Allergy Intermediate Swelling Verified 08/05/16 16:13 ampicillin sodium Allergy Rash Verified 08/05/16 16:13 [From Unasyn] Fish Containing Products Allergy Difficulty Verified 08/05/16 16:13 Breathing Penicillins Allergy Rash Verified 08/05/16 16:13 sulbactam sodium Allergy Rash Verified 08/05/16 16:13 [From Unasyn] Sulfa (Sulfonamide Allergy Hives Verified 08/05/16 16:13 Antibiotics) [Sulfa(Sulfonamide Antibiotics)] - Home Medications Home Medications: Ambulatory Orders Diazepam [Valium] 5 mg GT TID 04/23/14 Albuterol Sulfate [Proair Hfa -] 1 - 2 inh PO QID PRN 04/12/15 Budesonide/Formeterol Fumarate [SYMBICORT 160/4.5mcg -] 2 inh PO BID 04/12/15 Methenamine/Sodium Salicylate [Cystex Plus Tablet] 1 each GT DAILY 04/12/15 Heparin - 5,000 unit SQ BID vial 04/25/16 Albuterol 0.083% Nebulizer Jojo [Ventolin 0.083% Nebulizer Soln -] 1 amp NEB TID PRN 08/05/16 Docusate Sodium [Colace -] 300 mg GT HS 08/05/16 Metoclopramide HCl 5 mg GT BID 08/05/16 Polyethylene Glycol 3350 [Miralax (For Daily Use) -] 17 gm GT DAILY PRN Ranitidine [Zantac -] 150 mg GT BID 08/05/16 Tramadol HCl 50 mg GT Q6H PRN 08/05/16 Family Disease History - Family Disease History Family Disease History: Diabetes: Father (mild cognitive decline), Heart Disease : Father, CA: Mother (, colon cancer), Other: Father Review of Systems - Review of Systems Constitutional: reports: Chills, Fever Eyes: reports: No Symptoms HENT: reports: No Symptoms Neck: reports: No Symptoms Cardiovascular: reports: No Symptoms Respiratory: reports: No Symptoms Gastrointestinal: reports: No Symptoms Genitourinary: reports: No Symptoms Musculoskeletal: reports: No Symptoms Integumentary: reports: No Symptoms Neurological: reports: No Symptoms Endocrine: reports: No Symptoms Hematology/Lymphatic: reports: No Symptoms Psychiatric: reports: No Symptoms Physical Exam Vital Signs: Vital Signs Temperature 99.1 F 08/08/16 14:42 Pulse Rate 83 08/08/16 14:42 Respiratory Rate 20 08/08/16 14:42 Blood Pressure 98/66 08/08/16 14:42 O2 Sat by Pulse Oximetry (%) 96 08/08/16 11:00 Constitutional: Yes: No Distress, Calm Eyes: Yes: Conjunctiva Clear Neck: Yes: Supple, Trachea Midline Cardiovascular: Yes: Regular Rate and Rhythm Respiratory: Yes: Regular, CTA Bilaterally Gastrointestinal: Yes: Normal Bowel Sounds, Soft, Other (feeding tube in place) Renal/: Yes: Other (suprapubic). No: CVA Tenderness - Left, CVA Tenderness - Right Musculoskeletal: Yes: Other Extremities: Yes: Other Neurological: Yes: Alert, Oriented Psychiatric: Yes: Alert, Oriented Labs: CBC, BMP 08/08/16 05:50 08/08/16 05:50 Imaging - Results Chest X-ray: Report Reviewed, Image Reviewed Assessment/Plan Assessment/Plan (1) Urinary tract infection with sepsis Code(s): N39.0 - URINARY TRACT INFECTION, SITE NOT SPECIFIED Qualifiers: Urinary tract infection type: acute cystitis Hematuria presence: without hematuria Qualified Code(s): N30.00 - Acute cystitis without hematuria (2) Suprapubic catheter dysfunction Code(s): T83.018A - BREAKDOWN (MECHANICAL) OF OTHER URINARY CATHETER, INIT Qualifiers: Encounter type: sequela Qualified Code(s): T83.010S - Breakdown ( mechanical) of cystostomy catheter, sequela (3) COPD (chronic obstructive pulmonary disease) Code(s): J44.9 - CHRONIC OBSTRUCTIVE PULMONARY DISEASE, UNSPECIFIED Qualifiers : Chronic bronchitis type: unspecified (4) Cavitary lesion of lung Code(s): J98.4 - OTHER DISORDERS OF LUNG (5) Dysphagia Code(s): R13.10 - DYSPHAGIA, UNSPECIFIED (6) Dystonia Code(s): G24.9 - DYSTONIA, UNSPECIFIED (7) Neurogenic bladder Code(s): N31.9 - NEUROMUSCULAR DYSFUNCTION OF BLADDER, UNSPECIFIED plan suprapubic catheter changed will start patient on aztreonam rest continue current mgmt
[2016-08-08] MEDS: AZTREONAM 1 GM in DEXTROSE 5%-WATER - 50 ML IVPB SCH (18:30)
--- NOTE | 2016-08-08 19:24 | OP ---
DATE OF OPERATION: 08/08/2016 Done at the bedside. PREOPERATIVE DIAGNOSIS: Large infected suprapubic catheter. POSTOPERATIVE DIAGNOSIS: Large infected suprapubic catheter. Suprapubic stenosis. OPERATIVE PROCEDURE: Removal of suprapubic catheter, dilation of tract, placement of new catheter with irrigation of bladder. ANESTHESIA: Local Xylocaine jelly. DESCRIPTION OF PROCEDURE: Under above stated procedure, patient is prepped and draped in the usual sterile manner. He is placed in the supine position. A suprapubic catheter which appeared to be discolored and had suture placed at the base filled with dried blood and granulation tissue was removed after the sutures were cut with a suture scissors. The area was then sterilized with Betadine solution. The tract was calibrated at 14 Scottish and dilated to 18 Scottish; after insertion of Urojet Xylocaine jelly, an 18 Scottish latex free suprapubic Bagley was inserted, 10 mL of fluid was placed. Using sterile saline, the bladder was irrigated until the return was clear. The catheter was then placed at a catheter smith and placed on a new drainage bag. The suprapubic tract was dressed and taped. The patient tolerated the procedure well. No blood loss was encountered. The old suprapubic catheter with calcification was sent to pathology. Walt [id number]
--- NOTE | 2016-08-08 19:57 | CONS ---
DATE OF CONSULTATION: DATE OF DICTATION: 08/08/2016 HISTORY OF PRESENT ILLNESS: The patient is a 60-year-old male, examined on August 07, 2016. He is admitted via the emergency room on August 07, 2016, from a [facility] with fever, suprapubic pain, and possible urosepsis. The patient has history of dystonia. He is status post a suprapubic catheter as well as a PEG tube in the past year. Patient states the suprapubic area is inflamed and tender. He also complains of leaking of urine around the suprapubic catheter. He also states he has been having odorous urine as well as suprapubic pain. The urine in the tube has been cloudy and at times completely purulent. The patient had a temperature of 102 at the [facility]ci. He is transferred from the [facility] to the emergency room on August 05, 2016, because of fever. Patient has been diagnosed with muscular dystonia since age 21. He also has history of high blood pressure, asthma, pneumonia, sleep apnea, also has cavitary lesions in the lung, TB should be ruled out. Patient also complains of constipation, has history of dysphagia, also has gastroesophageal reflux disease. He has had history of benign prostatic hypertrophy, with recurrent urinary retention. He was diagnosed with a neurogenic bladder, and therefore a suprapubic tube was placed. He also had bouts of influenza 2 years earlier. Patient also has had a cervical laminectomy with fusion in the past. He denies any ethanol or tobacco use. ALLERGIES: The patient is allergic to multiple foods and substances including LATEX as well as IODINE. He is allergic to KIWI, AMPICILLIN, SEAFOOD, PENICILLINS, SODIUMS INCLUDING UNASYN, SULFUR ANTIBIOTICS INCLUDING SEPTRA AND BACTRIM. MEDICATION: He is on multiple medications including ProAir, valium, Symbicort, , albuterol, Colace, Zofran p.r.n., Miralax, Zantac, and tramadol. FAMILY HISTORY: The patient has history of congestive heart failure and diabetes in the family. He also has history of colon disease in his family presently. The patient's laboratory reveals a white count of 6.4 with a hemoglobin, hematocrit of 13.1/38.4. He had a high monocyte count of 17.9, his platelets were 179. His BUN and creatinine are 29/0.5. Random glucose was 87. Urinalysis revealed heme positive and nitrate positive urine. A culture of his urine grew out preliminary pseudomonas aeruginosa. Blood cultures revealed no growth after 48 hours. Presently the patient is in mild distress. He appears to be spastic, very thin. The PEG tube is intact. Suprapubic tube appears to be discolored with granulation tissue at the site of the tract. There was a stitch also holding the catheter in place. There appears to be overgrowth of granulation of bleeding. The area was cleaned. The suprapubic tube was removed. The suprapubic tube will be changed in the morning. Will also recommend a renal and pelvic ultrasound to rule out upper tract pathology. Will follow with you. NATALIA GODINEZ M.D. [id number]
[2016-08-08] MEDS: DOCUSATE NA 100 MG/10 ML UNIT-DOSE CUPS PO SCH (22:23)
[2016-08-09] MEDS: AZTREONAM 1 GM in DEXTROSE 5%-WATER - 50 ML IVPB SCH ×3 (02:21→17:00)
[2016-08-09] MEDS: diazePAM 5 MG TABLET GT SCH ×3 (06:38→21:07)
[2016-08-09] MEDS ORDERED: PT OWN MED DRAWER 7, Y5N ONE (08:53)
[2016-08-09] MEDS: RANITIDINE HCL 150 MG/10 ML UNIT-DOSE CUP PEG SCH (09:01)
[2016-08-09] MEDS: HEPARIN NA (PORCINE) 5,000 UNITS/ML 1ML VIAL SQ SCH ×2 (09:01→21:07)
[2016-08-09] MEDS: METOCLOPRAMIDE HCL 5 MG/5 ML UNIT DOSE CUP GT SCH ×2 (09:01→21:07)
[2016-08-09] MEDS: BUDESONIDE/FORMETEROL FUMARATE 160/4.5 mcg INHALER IH SCH ×2 (09:04→21:07)
[2016-08-09] MEDS: LEVOFLOXACIN 500 MG IVPB 100 ML IVPB SCH (09:37)
--- NOTE | 2016-08-09 11:05 | PN ---
CHR[facility] Grace Note Chief Complaint: doing well. spt draining and in place - Objective Vital Signs: Vital Signs Temperature 97.2 F L 08/09/16 09:24 Pulse Rate 54 L 08/09/16 09:24 Respiratory Rate 20 08/09/16 09:24 Blood Pressure 95/43 08/09/16 09:24 O2 Sat by Pulse Oximetry (%) 96 08/08/16 21:00 Labs/Additional Data: CBC, BMP 08/08/16 05:50 08/08/16 05:50 INR, PTT INR 1.13 (0.82-1.09) 08/05/16 17:20 Blood Type Blood Type A POSITIVE 08/05/16 17:20 Antibody Screen Negative 08/05/16 17:20 Assessment/Plan pt to f/u in office 1 week post d/c
--- NOTE | 2016-08-09 16:40 | PN ---
Physical Exam: SUBJECTIVE: Patient seen and examined. He states he feels well, denies any pain suprapubic pain or discomfort. OBJECTIVE: hazy yellow urine noted in becerra catheter Vital Signs Period Temp Pulse Resp BP Sys/Marroquin Pulse Ox Last 24 Hr 97.2 F-99 F 54-76 20-20 95-104/43-69 95-96 GENERAL: The patient is awake, alert, and fully oriented, in no acute distress. HEAD: Normal with no signs of trauma. EYES: PERRL, extraocular movements intact, sclera anicteric, conjunctiva clear. No ptosis. ENT: Ears normal, nares patent, oropharynx clear without exudates, moist mucous membranes. NECK: Trachea midline, full range of motion, supple. LUNGS: Breath sounds equal, clear to auscultation bilaterally, no wheezes, no crackles, no accessory muscle use. HEART: Regular rate and rhythm, S1, S2 without murmur, rub or gallop. ABDOMEN: Soft, nontender, nondistended, normoactive bowel sounds, no guarding, no rebound, no hepatosplenomegaly, no masses. EXTREMITIES: 2+ pulses, warm, well-perfused, no edema. NEUROLOGICAL: Normal speech, gait not observed. PSYCH: Normal mood, normal affect. SKIN: suprapubic catheter and peg tube in place Active Medications Generic Name Dose Route Start Last Admin Trade Name Freq PRN Reason Stop Dose Admin Acetaminophen 650 mg 08/05/16 20:29 Tylenol Oral Solution - PEG Q4H PRN FEVER OR PAIN Albuterol Sulfate 1 amp 08/05/16 20:18 Ventolin 0.083% Nebulizer Soln - NEB TID PRN SHORT OF BREATH/WHEEZING Albuterol Sulfate 2 puff 08/05/16 20:18 Ventolin Hfa Inhaler - IH Q4H PRN ASTHMA Budesonide/Formoterol Fumarate 2 puff 08/05/16 22:00 08/09/16 09:04 Symbicort 160/4.5mcg - IH Not Given BID [facility] Diazepam 5 mg 08/05/16 22:00 08/09/16 13:49 Valium - GT 5 mg TID [facility] Administration Docusate Sodium 300 mg 08/05/16 23:15 08/08/16 22:23 Colace Liquid - PO 300 mg HS [facility] Administration Heparin Sodium (Porcine) 5,000 unit 08/05/16 22:00 08/09/16 09:01 Heparin - SQ 5,000 unit BID [facility] Administration Levofloxacin 100 mls @ 100 mls/hr 08/06/16 10:00 08/09/16 09:37 Levaquin 500 Mg Premixed Ivpb - IVPB 100 mls/hr DAILY [facility] Administration Aztreonam 1 gm/ Dextrose 50 mls @ 100 mls/hr 08/08/16 18:00 08/09/16 09:02 IVPB 100 mls/hr Q8H-IV [facility] Administration Protocol Metoclopramide HCl 5 mg 08/05/16 22:00 08/09/16 09:01 Reglan Oral Solution - GT 5 mg BID [facility] Administration Polyethylene Glycol 17 gm 08/05/16 20:18 Miralax (For Daily Use) - GT DAILY PRN CONSTIPATION Ranitidine HCl 150 mg 08/06/16 10:00 08/09/16 09:01 Zantac Oral Solution - PEG 150 mg DAILY [facility] Administration Tramadol HCl 50 mg 08/05/16 20:18 08/08/16 15:00 Ultram - PEG 50 mg Q6H PRN Administration PAIN ASSESSMENT/PLAN: Patient is a 60 year old male with a significant past medical history of dystonia, chronic suprapubic catheter, PEG tube secondary to dysphagia and s/p VATS procedure. He presented to the ED on 08/05/2016 with pain in suprapubic area of burning quality, which he relates similar to prior UTI's. On admission he was noted to have a fever of 102.6F, WBC of 15.5, and therefore had sepsis on admission. Sepsis: UTI/met SIRS criteria on admission Assessment/Plan: Urine cultures + pseudomonas Met SIRS criteria on admission: leukocytosis, febrile 102.6F Leukocytosis imprved 15.5>6.2 On Levaquin 500mg (started 08/06) and Aztreonam 1 gram (started 08/09) Urine output adequate, remains afebrile suprapubic catheter changed yesterday ID following Neurogenic Bladder - chronic Assessment/Plan: suprapubic catheter changed yesterday monitor intake and output Pulmonary: COPD - not in acute exacerbation Assessment/Plan: On albuterol prn tolerating room air monitor closely Cavitary lesion of left lung on last admission Assessment/Plan - VATS procedure on last admission Now stable, monitor respiratory status Dysphagia: Assessment/Plan: NPO Peg bolus feeds scheduled F.E.N. Fluids: PEG tube scheduled bolus feedings Electrolytes: within normal limits Nutrition: PEG tube feeds Prophylaxis: GI: Zantac via PEG DVT: Heparin BID Disposition: continues to require inpatient hospitalization. Full Code. Visit type - Emergency Visit Emergency Visit: Yes ED Registration Date: 08/05/16 Care time: The patient presented to the Emergency Department on the above date and was hospitalized for further evaluation of their emergent condition. - New Patient This patient is new to me today: Yes Date on this admission: 09/08/16 - Critical Care Critical Care patient: No - Discharge Referral Referred to [facility] No
[2016-08-09] MEDS: DOCUSATE NA 100 MG/10 ML UNIT-DOSE CUPS PO SCH (21:06)
[2016-08-10] MEDS: AZTREONAM 1 GM in DEXTROSE 5%-WATER - 50 ML IVPB SCH ×3 (01:25→18:40)
[2016-08-10] MEDS: diazePAM 5 MG TABLET GT SCH ×3 (06:28→21:23)
[2016-08-10 08:02] LABS: BASOPHIL 0.4 % (0-2.0); EOSINOPHIL 5.6 % (0-4.5); MCH 33.1 pg (25.7-33.7); MCHC 34.7 g/dl (32.0-35.9); MEAN CELL VOLUME 95.7 fl (80-96); MEAN PLT VOLUME 8.4 fl (7.5-11.1); NEUTROPHILS 57.9 % (42.8-82.8); PLATELET COUNT 196 K/MM3 (134-434); RDW 12.6 % (11.9-15.9); WHITE BLOOD COUNT 6.6 K/mm3 (4.0-10.0)
[2016-08-10 08:36] LABS: CALCIUM 8.9 mg/dL (8.5-10.1)
[2016-08-10 08:42] LABS: ALBUMIN 3.3 g/dl (3.4-5.0); ALK PHOS 63 U/L (45-117); ANION GAP 8 (8-16); BILIRUBIN,TOTAL 0.6 mg/dL (0.2-1.0); CO2 32 mmol/L (21-32); CREATININE 0.5 mg/dL (0.7-1.3); GLUCOSE,RANDOM 91 mg/dL (74-106); SGOT/AST 17 U/L (15-37); SGPT/ALT 33 U/L (12-78)
[2016-08-10] MEDS ORDERED: PT OWN MED DRAWER 7, Y5N ONE ×3 (08:57→18:10)
[2016-08-10] MEDS: METOCLOPRAMIDE HCL 5 MG/5 ML UNIT DOSE CUP GT SCH ×2 (09:21→21:22)
[2016-08-10] MEDS: LEVOFLOXACIN 500 MG IVPB 100 ML IVPB SCH (09:21)
[2016-08-10] MEDS: RANITIDINE HCL 150 MG/10 ML UNIT-DOSE CUP PEG SCH (09:21)
[2016-08-10] MEDS: HEPARIN NA (PORCINE) 5,000 UNITS/ML 1ML VIAL SQ SCH ×2 (09:22→21:22)
--- NOTE | 2016-08-10 09:45 | PN ---
Progress Note (short form) - Note Progress Note: pt. had change of SPT becerra patent tract site -clean and dry abd. soft,n/t urine clear pt. will need change of becerra monthly
[2016-08-10] MEDS: BUDESONIDE/FORMETEROL FUMARATE 160/4.5 mcg INHALER IH SCH ×2 (11:06→21:23)
--- NOTE | 2016-08-10 12:51 | PATH ---
Surgical Pathology Report Patient Name: YAHAIRA THOMPSON Med. Rec. #: [id number] /Age/Gender: 1955 (Age: 60) / M Account: [id number] Location: [address] [place] [address]/[facility] Taken: 08/09/2016 Received: 08/09/2016 Reported: 08/10/2016 Physicians: Talha Park Specimen(s) Received OLD CHÁVEZ WITH CALCIFIED TIP Clinical History COPD, dystonia, sepsis Neurogenic bladder with suprapubic cystostomy x8 weeks History of urosepsis Final Diagnosis OLD SUPRAPUBIC CHÁVEZ CATHETER WITH CALCIFIED TIP, REMOVAL: CONSISTENT FOR SUPRAPUBIC CATHETER (GROSS EXAM). Electronically Signed Easton Pereira M.D. Gross Description Received fresh labeled "suprapubic catheter" is a 42 cm in length catheter. No soft tissue is present. No sections are submitted, gross examination only. /08/09/2016 saudi/08/09/2016
--- NOTE | 2016-08-10 16:06 | PN ---
Progress Note, Physician History of Present Illness: patient doing well no complaints no new issues - Current Medication List Current Medications: Active Medications Acetaminophen (Tylenol Oral Solution -) 650 mg PEG Q4H PRN PRN Reason: FEVER OR PAIN Albuterol Sulfate (Ventolin 0.083% Nebulizer Soln -) 1 amp NEB TID PRN PRN Reason: SHORT OF BREATH/WHEEZING Albuterol Sulfate (Ventolin Hfa Inhaler -) 2 puff IH Q4H PRN PRN Reason: ASTHMA Budesonide/Formoterol Fumarate (Symbicort 160/4.5mcg -) [address] [facility] Last Admin: 08/10/16 11:06 Dose: Not Given Diazepam (Valium -) [address] [facility] Last Admin: 08/10/16 13:41 Dose: 5 mg Docusate Sodium (Colace Liquid -) [address] [facility] Last Admin: 08/09/16 21:06 Dose: 300 mg Heparin Sodium (Porcine) (Heparin -) 5,[address] [facility] Last Admin: 08/10/16 09:22 Dose: 5,000 unit Levofloxacin (Levaquin 500 Mg Premixed Ivpb -) 100 mls @ 100 mls/hr IVPB DAILY [facility] Last Admin: 08/10/16 09:21 Dose: 100 mls/hr Aztreonam 1 gm/ Dextrose 50 mls @ 100 mls/hr IVPB Q8H-IV [facility] PRN Reason: Protocol Last Admin: 08/10/16 11:06 Dose: 100 mls/hr Metoclopramide HCl (Reglan Oral Solution -) [address] [facility] Last Admin: 08/10/16 09:21 Dose: 5 mg Polyethylene Glycol (Miralax (For Daily Use) -) 17 gm GT DAILY PRN PRN Reason: CONSTIPATION Ranitidine HCl (Zantac Oral Solution -) [address] [facility] Last Admin: 08/10/16 09:21 Dose: 150 mg Tramadol HCl (Ultram -) 50 mg PEG Q6H PRN PRN Reason: PAIN Last Admin: 08/08/16 15:00 Dose: 50 mg - Objective Vital Signs: Vital Signs Temperature 98.4 F 08/10/16 14:01 Pulse Rate 72 08/10/16 14:01 Respiratory Rate 18 08/10/16 14:01 Blood Pressure 98/53 08/10/16 14:01 O2 Sat by Pulse Oximetry (%) 94 L 08/09/16 21:00 Constitutional: Yes: No Distress, Calm Cardiovascular: Yes: Regular Rate and Rhythm, S1, S2 Respiratory: Yes: Regular, CTA Bilaterally Gastrointestinal: Yes: Normal Bowel Sounds, Soft, Other (peg in place) Genitourinary: Yes: Other (suprapubic) Musculoskeletal: Yes: Other Extremities: Yes: Other Neurological: Yes: Alert, Oriented Psychiatric: Yes: Alert Labs: CBC, BMP 08/10/16 06:30 08/10/16 06:30 INR, PTT INR 1.13 (0.82-1.09) 08/05/16 17:20 Assessment/Plan Assessment/Plan (1) Urinary tract infection with sepsis Code(s): N39.0 - URINARY TRACT INFECTION, SITE NOT SPECIFIED Qualifiers: Urinary tract infection type: acute cystitis Hematuria presence: without hematuria Qualified Code(s): N30.00 - Acute cystitis without hematuria (2) Suprapubic catheter dysfunction Code(s): T83.018A - BREAKDOWN (MECHANICAL) OF OTHER URINARY CATHETER, INIT Qualifiers: Encounter type: sequela Qualified Code(s): T83.010S - Breakdown ( mechanical) of cystostomy catheter, sequela (3) COPD (chronic obstructive pulmonary disease) Code(s): J44.9 - CHRONIC OBSTRUCTIVE PULMONARY DISEASE, UNSPECIFIED Qualifiers : Chronic bronchitis type: unspecified (4) Cavitary lesion of lung Code(s): J98.4 - OTHER DISORDERS OF LUNG (5) Dysphagia Code(s): R13.10 - DYSPHAGIA, UNSPECIFIED (6) Dystonia Code(s): G24.9 - DYSTONIA, UNSPECIFIED (7) Neurogenic bladder Code(s): N31.9 - NEUROMUSCULAR DYSFUNCTION OF BLADDER, UNSPECIFIED plan continue current mgmt patient improving will await for urology final input
--- NOTE | 2016-08-10 16:09 | PN ---
Progress Note, Physician History of Present Illness: patient is stable still some discomfort in the abd urology note noted site looks good - Current Medication List Current Medications: Active Medications Acetaminophen (Tylenol Oral Solution -) 650 mg PEG Q4H PRN PRN Reason: FEVER OR PAIN Albuterol Sulfate (Ventolin 0.083% Nebulizer Soln -) 1 amp NEB TID PRN PRN Reason: SHORT OF BREATH/WHEEZING Albuterol Sulfate (Ventolin Hfa Inhaler -) 2 puff IH Q4H PRN PRN Reason: ASTHMA Budesonide/Formoterol Fumarate (Symbicort 160/4.5mcg -) 2 puff IH BID [facility] Last Admin: 08/10/16 11:06 Dose: Not Given Diazepam (Valium -) 5 mg GT TID [facility] Last Admin: 08/10/16 13:41 Dose: 5 mg Docusate Sodium (Colace Liquid -) 300 mg PO HS [facility] Last Admin: 08/09/16 21:06 Dose: 300 mg Heparin Sodium (Porcine) (Heparin -) 5,000 unit SQ BID [facility] Last Admin: 08/10/16 09:22 Dose: 5,000 unit Levofloxacin (Levaquin 500 Mg Premixed Ivpb -) 100 mls @ 100 mls/hr IVPB DAILY [facility] Last Admin: 08/10/16 09:21 Dose: 100 mls/hr Aztreonam 1 gm/ Dextrose 50 mls @ 100 mls/hr IVPB Q8H-IV [facility] PRN Reason: Protocol Last Admin: 08/10/16 11:06 Dose: 100 mls/hr Metoclopramide HCl (Reglan Oral Solution -) 5 mg GT BID [facility] Last Admin: 08/10/16 09:21 Dose: 5 mg Polyethylene Glycol (Miralax (For Daily Use) -) 17 gm GT DAILY PRN PRN Reason: CONSTIPATION Ranitidine HCl (Zantac Oral Solution -) 150 mg PEG DAILY [facility] Last Admin: 08/10/16 09:21 Dose: 150 mg Tramadol HCl (Ultram -) 50 mg PEG Q6H PRN PRN Reason: PAIN Last Admin: 08/08/16 15:00 Dose: 50 mg - Objective Vital Signs: Vital Signs Temperature 98.4 F 08/10/16 14:01 Pulse Rate 72 08/10/16 14:01 Respiratory Rate 18 08/10/16 14:01 Blood Pressure 98/53 08/10/16 14:01 O2 Sat by Pulse Oximetry (%) 94 L 08/09/16 21:00 Constitutional: Yes: No Distress, Calm Cardiovascular: Yes: Regular Rate and Rhythm Respiratory: Yes: Regular, CTA Bilaterally Gastrointestinal: Yes: Normal Bowel Sounds, Soft Genitourinary: Yes: Other (suprapubic in place) Musculoskeletal: Yes: Other Extremities: Yes: Other Neurological: Yes: Alert, Oriented Psychiatric: Yes: Alert Labs: CBC, BMP 08/10/16 06:30 08/10/16 06:30 INR, PTT INR 1.13 (0.82-1.09) 08/05/16 17:20 Assessment/Plan Assessment/Plan (1) Urinary tract infection with sepsis Code(s): N39.0 - URINARY TRACT INFECTION, SITE NOT SPECIFIED Qualifiers: Urinary tract infection type: acute cystitis Hematuria presence: without hematuria Qualified Code(s): N30.00 - Acute cystitis without hematuria (2) Suprapubic catheter dysfunction Code(s): T83.018A - BREAKDOWN (MECHANICAL) OF OTHER URINARY CATHETER, INIT Qualifiers: Encounter type: sequela Qualified Code(s): T83.010S - Breakdown ( mechanical) of cystostomy catheter, sequela (3) COPD (chronic obstructive pulmonary disease) Code(s): J44.9 - CHRONIC OBSTRUCTIVE PULMONARY DISEASE, UNSPECIFIED Qualifiers : Chronic bronchitis type: unspecified (4) Cavitary lesion of lung Code(s): J98.4 - OTHER DISORDERS OF LUNG (5) Dysphagia Code(s): R13.10 - DYSPHAGIA, UNSPECIFIED (6) Dystonia Code(s): G24.9 - DYSTONIA, UNSPECIFIED (7) Neurogenic bladder Code(s): N31.9 - NEUROMUSCULAR DYSFUNCTION OF BLADDER, UNSPECIFIED plan continue current mgmt patient improving ct abx for now
--- NOTE | 2016-08-10 16:51 | PN ---
Physical Exam: SUBJECTIVE: Patient seen and examined. States he feels well. States he feels weak. OBJECTIVE: had suprapubic catheter changed on 08/09, will need change of becerra monthly Vital Signs Period Temp Pulse Resp BP Sys/Marroquin Pulse Ox Last 24 Hr 98.3 F-98.8 F 62-74 18-20 89-101/53-63 94 GENERAL: The patient is awake, alert, and fully oriented, in no acute distress. HEAD: Normal with no signs of trauma. EYES: PERRL, extraocular movements intact, sclera anicteric, conjunctiva clear. No ptosis. ENT: Ears normal, nares patent, oropharynx clear without exudates, moist mucous membranes. NECK: Trachea midline, full range of motion, supple. LUNGS: Breath sounds equal, clear to auscultation bilaterally, no wheezes, no crackles, no accessory muscle use. HEART: Regular rate and rhythm, S1, S2 without murmur, rub or gallop. ABDOMEN: Soft, nontender, nondistended, normoactive bowel sounds, no guarding, no rebound, no hepatosplenomegaly, no masses. EXTREMITIES: 2+ pulses, warm, well-perfused, no edema. NEUROLOGICAL: Normal speech, gait not observed. PSYCH: Normal mood, normal affect. SKIN: suprapubic catheter (changed yesterday) and peg tube in place Laboratory Results - last 24 hr 08/10/16 08/10/16 06:30 06:30 WBC 6.6 RBC 3.94 L Hgb 13.1 Hct 37.7 MCV 95.7 MCHC 34.7 RDW 12.6 Plt Count 196 MPV 8.4 Neutrophils % 57.9 Lymphocytes % 24.5 Monocytes % 11.6 H Eosinophils % 5.6 H Basophils % 0.4 Sodium 140 Potassium 4.3 Chloride 100 Carbon Dioxide 32 D Anion Gap 8 BUN 17 D Creatinine 0.5 L Creat Clearance w eGFR > 60 Random Glucose 91 Calcium 8.9 Total Bilirubin 0.6 AST 17 ALT 33 Alkaline Phosphatase 63 Total Protein 6.0 L Albumin 3.3 L Active Medications Generic Name Dose Route Start Last Admin Trade Name Freq PRN Reason Stop Dose Admin Acetaminophen 650 mg 08/05/16 20:29 Tylenol Oral Solution - PEG Q4H PRN FEVER OR PAIN Albuterol Sulfate 1 amp 08/05/16 20:18 Ventolin 0.083% Nebulizer Soln - NEB TID PRN SHORT OF BREATH/WHEEZING Albuterol Sulfate 2 puff 08/05/16 20:18 Ventolin Hfa Inhaler - IH Q4H PRN ASTHMA Budesonide/Formoterol Fumarate 2 puff 08/05/16 22:00 08/10/16 11:06 Symbicort 160/4.5mcg - IH Not Given BID [facility] Diazepam 5 mg 08/05/16 22:00 08/10/16 13:41 Valium - GT 5 mg TID [facility] Administration Docusate Sodium 300 mg 08/05/16 23:15 08/09/16 21:06 Colace Liquid - PO 300 mg HS [facility] Administration Heparin Sodium (Porcine) 5,000 unit 08/05/16 22:00 08/10/16 09:22 Heparin - SQ 5,000 unit BID [facility] Administration Levofloxacin 100 mls @ 100 mls/hr 08/06/16 10:00 08/10/16 09:21 Levaquin 500 Mg Premixed Ivpb - IVPB 100 mls/hr DAILY [facility] Administration Aztreonam 1 gm/ Dextrose 50 mls @ 100 mls/hr 08/08/16 18:00 08/10/16 11:06 IVPB 100 mls/hr Q8H-IV [facility] Administration Protocol Metoclopramide HCl 5 mg 08/05/16 22:00 08/10/16 09:21 Reglan Oral Solution - GT 5 mg BID [facility] Administration Polyethylene Glycol 17 gm 08/05/16 20:18 Miralax (For Daily Use) - GT DAILY PRN CONSTIPATION Ranitidine HCl 150 mg 08/06/16 10:00 08/10/16 09:21 Zantac Oral Solution - PEG 150 mg DAILY [facility] Administration Tramadol HCl 50 mg 08/05/16 20:18 08/08/16 15:00 Ultram - PEG 50 mg Q6H PRN Administration PAIN ASSESSMENT/PLAN: Patient is a 60 year old male with a significant past medical history of dystonia, chronic suprapubic catheter, PEG tube secondary to dysphagia and s/p VATS procedure. He presented to the ED on 08/05/2016 with pain in suprapubic area of burning quality, which he relates similar to prior UTI's. On admission he was noted to have a fever of 102.6F, WBC of 15.5, and therefore had sepsis on admission. Sepsis: UTI/met SIRS criteria on admission Assessment/Plan: Urine cultures + pseudomonas Met SIRS criteria on admission: leukocytosis, febrile 102.6F Leukocytosis improving 15.5>6.6 On Levaquin 500mg (started 08/06) and Aztreonam 1 gram q8 (started 08/09) Urine output adequate, remains afebrile suprapubic catheter changed ID following Neurogenic Bladder - chronic Assessment/Plan: suprapubic catheter changed 08/09 monitor intake and output Pulmonary: COPD - not in acute exacerbation Assessment/Plan: On albuterol prn tolerating room air monitor closely Cavitary lesion of left lung on last admission Assessment/Plan - VATS procedure on last admission Now stable, monitor respiratory status Tolerating room air Dysphagia: Assessment/Plan: NPO Peg bolus feeds scheduled F.E.N. Fluids: PEG tube scheduled bolus feedings with water flushes Electrolytes: within normal limits Nutrition: PEG tube feeds Prophylaxis: GI: Zantac via PEG DVT: Heparin BID Disposition: continues to require inpatient hospitalization. Full Code. Visit type - Emergency Visit Emergency Visit: Yes ED Registration Date: 08/05/16 Care time: The patient presented to the Emergency Department on the above date and was hospitalized for further evaluation of their emergent condition. - New Patient This patient is new to me today: No - Critical Care Critical Care patient: No - Discharge Referral Referred to [facility] Med P.C.: No
[2016-08-10] MEDS: DOCUSATE NA 100 MG/10 ML UNIT-DOSE CUPS PO SCH (21:14)
[2016-08-11] MEDS: AZTREONAM 1 GM in DEXTROSE 5%-WATER - 50 ML IVPB SCH ×3 (01:15→17:50)
[2016-08-11] MEDS: diazePAM 5 MG TABLET GT SCH ×3 (06:47→21:15)
[2016-08-11 08:44] LABS: BASOPHIL 0.5 % (0-2.0); EOSINOPHIL 4.7 % (0-4.5); MCH 32.6 pg (25.7-33.7); MCHC 33.9 g/dl (32.0-35.9); MEAN PLT VOLUME 8.3 fl (7.5-11.1); NEUTROPHILS 57.9 % (42.8-82.8); PLATELET COUNT 202 K/MM3 (134-434); RDW 12.5 % (11.9-15.9); WHITE BLOOD COUNT 6.5 K/mm3 (4.0-10.0)
[2016-08-11 09:07] LABS: ALBUMIN 3.2 g/dl (3.4-5.0); ALK PHOS 67 U/L (45-117); ANION GAP 8 (8-16); BILIRUBIN,TOTAL 0.5 mg/dL (0.2-1.0); CALCIUM 8.9 mg/dL (8.5-10.1); CO2 31 mmol/L (21-32); CREATININE 0.5 mg/dL (0.7-1.3); GLUCOSE,RANDOM 80 mg/dL (74-106); SGOT/AST 18 U/L (15-37); SGPT/ALT 33 U/L (12-78); TOT PROT 5.9 g/dl (6.4-8.2)
[2016-08-11] MEDS: BUDESONIDE/FORMETEROL FUMARATE 160/4.5 mcg INHALER IH SCH ×3 (11:48→21:14)
[2016-08-11] MEDS: LEVOFLOXACIN 500 MG IVPB 100 ML IVPB SCH (11:50)
[2016-08-11] MEDS: RANITIDINE HCL 150 MG/10 ML UNIT-DOSE CUP PEG SCH (11:51)
[2016-08-11] MEDS: HEPARIN NA (PORCINE) 5,000 UNITS/ML 1ML VIAL SQ SCH ×2 (11:51→21:11)
[2016-08-11] MEDS: METOCLOPRAMIDE HCL 5 MG/5 ML UNIT DOSE CUP GT SCH ×2 (11:51→21:12)
--- NOTE | 2016-08-11 11:54 | PN ---
Progress Note (short form) - Note Progress Note: Physical Exam: SUBJECTIVE: Patient seen and examined. Afebrile. Denies nausea vomiting, abdominal pain. OBJECTIVE: had suprapubic catheter changed on 08/09, will need change of becerra monthly Vital Signs Period Temp Pulse Resp BP Sys/Marroquin Pulse Ox Last 24 Hr 98.3 F-98.5 F 53-72 18-18 80-103/38-61 94 GENERAL: The patient is awake, alert, and fully oriented, in no acute distress. HEAD: Normal with no signs of trauma. EYES: PERRL, extraocular movements intact, sclera anicteric, conjunctiva clear. No ptosis. ENT: Ears normal, nares patent, oropharynx clear without exudates, moist mucous membranes. NECK: Trachea midline, full range of motion, supple. LUNGS: Breath sounds equal, clear to auscultation bilaterally, no wheezes, no crackles, no accessory muscle use. HEART: Regular rate and rhythm, S1, S2 without murmur, rub or gallop. ABDOMEN: Soft, nontender, nondistended, normoactive bowel sounds, no guarding, no rebound, no hepatosplenomegaly, no masses. EXTREMITIES: 2+ pulses, warm, well-perfused, no edema. NEUROLOGICAL: Normal speech, gait not observed. PSYCH: Normal mood, normal affect. SKIN: suprapubic catheter (changed yesterday) and peg tube in place CBC, BMP 08/11/16 07:00 08/11/16 07:00 Active Medications Generic Name Dose Route Start Last Admin Trade Name Freq PRN Reason Stop Dose Admin Acetaminophen 650 mg 08/05/16 20:29 Tylenol Oral Solution - PEG Q4H PRN FEVER OR PAIN Albuterol Sulfate 1 amp 08/05/16 20:18 Ventolin 0.083% Nebulizer Soln - NEB TID PRN SHORT OF BREATH/WHEEZING Albuterol Sulfate 2 puff 08/05/16 20:18 Ventolin Hfa Inhaler - IH Q4H PRN ASTHMA Budesonide/Formoterol Fumarate 2 puff 08/05/16 22:00 08/10/16 11:06 Symbicort 160/4.5mcg - IH Not Given BID [facility] Diazepam 5 mg 08/05/16 22:00 08/10/16 13:41 Valium - GT 5 mg TID [facility] Administration Docusate Sodium 300 mg 08/05/16 23:15 08/09/16 21:06 Colace Liquid - PO 300 mg HS [facility] Administration Heparin Sodium (Porcine) 5,000 unit 08/05/16 22:00 08/10/16 09:22 Heparin - SQ 5,000 unit BID [facility] Administration Levofloxacin 100 mls @ 100 mls/hr 08/06/16 10:00 08/10/16 09:21 Levaquin 500 Mg Premixed Ivpb - IVPB 100 mls/hr DAILY [facility] Administration Aztreonam 1 gm/ Dextrose 50 mls @ 100 mls/hr 08/08/16 18:00 08/10/16 11:06 IVPB 100 mls/hr Q8H-IV [facility] Administration Protocol Metoclopramide HCl 5 mg 08/05/16 22:00 08/10/16 09:21 Reglan Oral Solution - GT 5 mg BID [facility] Administration Polyethylene Glycol 17 gm 08/05/16 20:18 Miralax (For Daily Use) - GT DAILY PRN CONSTIPATION Ranitidine HCl 150 mg 08/06/16 10:00 08/10/16 09:21 Zantac Oral Solution - PEG 150 mg DAILY [facility] Administration Tramadol HCl 50 mg 08/05/16 20:18 08/08/16 15:00 Ultram - PEG 50 mg Q6H PRN Administration PAIN ASSESSMENT/PLAN: Patient is a 60 year old male with a significant past medical history of dystonia, chronic suprapubic catheter, PEG tube secondary to dysphagia and s/p VATS procedure. He presented to the ED on 08/05/2016 with pain in suprapubic area of burning quality, which he relates similar to prior UTI's. On admission he was noted to have a fever of 102.6F, WBC of 15.5, and therefore had sepsis on admission. Sepsis: UTI/met SIRS criteria on admission Assessment/Plan: Urine cultures + pseudomonas Met SIRS criteria on admission: leukocytosis, febrile 102.6F Leukocytosis improving 15.5>6.5 Continue Levaquin 500mg (started 08/06) and Aztreonam 1 gram q8 (started 08/09) Urine output adequate, remains afebrile suprapubic catheter changed ID following Neurogenic Bladder - chronic Assessment/Plan: suprapubic catheter changed 3/23 monitor intake and output Pulmonary: COPD - not in acute exacerbation Assessment/Plan: On albuterol prn tolerating room air monitor closely Cavitary lesion of left lung on last admission Assessment/Plan - VATS procedure on last admission Now stable, monitor respiratory status Tolerating room air Dysphagia: Assessment/Plan: NPO Peg bolus feeds scheduled F.E.N. Fluids: PEG tube scheduled bolus feedings with water flushes Electrolytes: within normal limits Nutrition: PEG tube feeds Prophylaxis: GI: Zantac via PEG DVT: Heparin BID Disposition: continues to require inpatient hospitalization. Full Code.
--- NOTE | 2016-08-11 12:27 | PN ---
Progress Note, Physician History of Present Illness: stable no new complaints sitting in chair - Current Medication List Current Medications: Active Medications Acetaminophen (Tylenol Oral Solution -) 650 mg PEG Q4H PRN PRN Reason: FEVER OR PAIN Albuterol Sulfate (Ventolin Hfa Inhaler -) 2 puff IH Q4H PRN PRN Reason: ASTHMA Budesonide/Formoterol Fumarate (Symbicort 160/4.5mcg -) 2 puff IH BID [facility] Last Admin: 08/11/16 12:06 Dose: Not Given Diazepam (Valium -) 5 mg GT TID [facility] Last Admin: 08/11/16 06:47 Dose: 5 mg Docusate Sodium (Colace Liquid -) 300 mg PO HS [facility] Last Admin: 08/10/16 21:14 Dose: 200 mg Heparin Sodium (Porcine) (Heparin -) 5,000 unit SQ BID [facility] Last Admin: 08/11/16 11:51 Dose: 5,000 unit Levofloxacin (Levaquin 500 Mg Premixed Ivpb -) 100 mls @ 100 mls/hr IVPB DAILY [facility] Last Admin: 08/11/16 11:50 Dose: 100 mls/hr Aztreonam 1 gm/ Dextrose 50 mls @ 100 mls/hr IVPB Q8H-IV [facility] PRN Reason: Protocol Last Admin: 08/11/16 11:47 Dose: 100 mls/hr Metoclopramide HCl (Reglan Oral Solution -) 5 mg GT BID [facility] Last Admin: 08/11/16 11:51 Dose: 5 mg Polyethylene Glycol (Miralax (For Daily Use) -) 17 gm GT DAILY PRN PRN Reason: CONSTIPATION Ranitidine HCl (Zantac Oral Solution -) 150 mg PEG DAILY [facility] Last Admin: 08/11/16 11:51 Dose: 150 mg Tramadol HCl (Ultram -) 50 mg PEG Q6H PRN PRN Reason: PAIN Last Admin: 08/08/16 15:00 Dose: 50 mg - Objective Vital Signs: Vital Signs Temperature 98.3 F 08/11/16 09:09 Pulse Rate 63 08/11/16 09:09 Respiratory Rate 18 08/11/16 09:09 Blood Pressure 98/38 08/11/16 09:09 O2 Sat by Pulse Oximetry (%) 94 L 08/10/16 21:00 Constitutional: Yes: No Distress, Calm Cardiovascular: Yes: Regular Rate and Rhythm Respiratory: Yes: Regular, CTA Bilaterally Gastrointestinal: Yes: Normal Bowel Sounds, Soft, Other (peg in place) Genitourinary: Yes: Other (suprapubic in place) Musculoskeletal: Yes: WNL Extremities: Yes: WNL Wound/Incision: Yes: Other Neurological: Yes: Alert Labs: CBC, BMP 08/11/16 07:00 08/11/16 07:00 INR, PTT INR 1.13 (0.82-1.09) 08/05/16 17:20 Assessment/Plan Assessment/Plan (1) Urinary tract infection with sepsis Code(s): N39.0 - URINARY TRACT INFECTION, SITE NOT SPECIFIED Qualifiers: Urinary tract infection type: acute cystitis Hematuria presence: without hematuria Qualified Code(s): N30.00 - Acute cystitis without hematuria (2) Suprapubic catheter dysfunction Code(s): T83.018A - BREAKDOWN (MECHANICAL) OF OTHER URINARY CATHETER, INIT Qualifiers: Encounter type: sequela Qualified Code(s): T83.010S - Breakdown ( mechanical) of cystostomy catheter, sequela (3) COPD (chronic obstructive pulmonary disease) Code(s): J44.9 - CHRONIC OBSTRUCTIVE PULMONARY DISEASE, UNSPECIFIED Qualifiers : Chronic bronchitis type: unspecified (4) Cavitary lesion of lung Code(s): J98.4 - OTHER DISORDERS OF LUNG (5) Dysphagia Code(s): R13.10 - DYSPHAGIA, UNSPECIFIED (6) Dystonia Code(s): G24.9 - DYSTONIA, UNSPECIFIED (7) Neurogenic bladder Code(s): N31.9 - NEUROMUSCULAR DYSFUNCTION OF BLADDER, UNSPECIFIED plan continue current mgmt patient improving ct abx for now
[2016-08-11] MEDS ORDERED: PT OWN MED DRAWER 7, Y5N ONE (13:09)
[2016-08-11] MEDS ORDERED: SODIUM CHLORIDE 500 ML IV ONE (15:15)
[2016-08-11] MEDS: DOCUSATE NA 100 MG/10 ML UNIT-DOSE CUPS PO SCH (21:09)
[2016-08-12] MEDS ORDERED: PT OWN MED DRAWER 7, Y5N ONE ×4 (01:11→21:02)
[2016-08-12] MEDS: AZTREONAM 1 GM in DEXTROSE 5%-WATER - 50 ML IVPB SCH ×3 (01:34→17:34)
[2016-08-12] MEDS: diazePAM 5 MG TABLET GT SCH ×3 (06:47→21:14)
[2016-08-12 07:36] LABS: BASOPHIL 0.5 % (0-2.0); EOSINOPHIL 5.5 % (0-4.5); MCHC 34.3 g/dl (32.0-35.9); MEAN CELL VOLUME 96.4 fl (80-96); MEAN PLT VOLUME 8.1 fl (7.5-11.1); NEUTROPHILS 54.5 % (42.8-82.8); PLATELET COUNT 198 K/MM3 (134-434); RDW 12.6 % (11.9-15.9); WHITE BLOOD COUNT 6.4 K/mm3 (4.0-10.0)
[2016-08-12 07:59] LABS: ALBUMIN 3.2 g/dl (3.4-5.0); ANION GAP 9 (8-16); CALCIUM 8.8 mg/dL (8.5-10.1); CO2 31 mmol/L (21-32); CREATININE 0.5 mg/dL (0.7-1.3); GLUCOSE,RANDOM 85 mg/dL (74-106); SGOT/AST 20 U/L (15-37); SGPT/ALT 31 U/L (12-78)
[2016-08-12 08:01] LABS: ALK PHOS 66 U/L (45-117); BILIRUBIN,TOTAL 0.5 mg/dL (0.2-1.0); TOT PROT 5.8 g/dl (6.4-8.2)
[2016-08-12] MEDS: LEVOFLOXACIN 500 MG IVPB 100 ML IVPB SCH (10:36)
[2016-08-12] MEDS: HEPARIN NA (PORCINE) 5,000 UNITS/ML 1ML VIAL SQ SCH ×2 (10:36→21:11)
[2016-08-12] MEDS: METOCLOPRAMIDE HCL 5 MG/5 ML UNIT DOSE CUP GT SCH ×2 (10:37→21:13)
[2016-08-12] MEDS: RANITIDINE HCL 150 MG/10 ML UNIT-DOSE CUP PEG SCH (10:38)
[2016-08-12] MEDS: BUDESONIDE/FORMETEROL FUMARATE 160/4.5 mcg INHALER IH SCH (10:38)
--- NOTE | 2016-08-12 13:26 | PN ---
Progress Note, Physician History of Present Illness: stable no new complaints doing well - Current Medication List Current Medications: Active Medications Acetaminophen (Tylenol Oral Solution -) 650 mg PEG Q4H PRN PRN Reason: FEVER OR PAIN Albuterol Sulfate (Ventolin Hfa Inhaler -) 2 puff IH Q4H PRN PRN Reason: ASTHMA Budesonide/Formoterol Fumarate (Symbicort 160/4.5mcg -) 2 puff IH BID [facility] Last Admin: 08/12/16 10:38 Dose: Not Given Diazepam (Valium -) 5 mg GT TID [facility] Last Admin: 08/12/16 06:47 Dose: 5 mg Docusate Sodium (Colace Liquid -) 300 mg PO HS [facility] Last Admin: 08/11/16 21:09 Dose: 300 mg Heparin Sodium (Porcine) (Heparin -) 5,000 unit SQ BID [facility] Last Admin: 08/12/16 10:36 Dose: 5,000 unit Levofloxacin (Levaquin 500 Mg Premixed Ivpb -) 100 mls @ 100 mls/hr IVPB DAILY [facility] Last Admin: 08/12/16 10:36 Dose: 100 mls/hr Aztreonam 1 gm/ Dextrose 50 mls @ 100 mls/hr IVPB Q8H-IV [facility] PRN Reason: Protocol Last Admin: 08/12/16 09:04 Dose: 100 mls/hr Metoclopramide HCl (Reglan Oral Solution -) 5 mg GT BID [facility] Last Admin: 08/12/16 10:37 Dose: 5 mg Polyethylene Glycol (Miralax (For Daily Use) -) 17 gm GT DAILY PRN PRN Reason: CONSTIPATION Ranitidine HCl (Zantac Oral Solution -) 150 mg PEG DAILY [facility] Last Admin: 08/12/16 10:38 Dose: 150 mg - Objective Vital Signs: Vital Signs Temperature 97.9 F 08/12/16 09:00 Pulse Rate 51 L 08/12/16 09:00 Respiratory Rate 18 08/12/16 09:00 Blood Pressure 95/59 08/12/16 09:00 O2 Sat by Pulse Oximetry (%) 97 08/12/16 09:00 Constitutional: Yes: No Distress, Calm Cardiovascular: Yes: Regular Rate and Rhythm Respiratory: Yes: Regular, CTA Bilaterally Gastrointestinal: Yes: Normal Bowel Sounds, Soft, Other (peg tube in place) Musculoskeletal: Yes: Other Extremities: Yes: Other Neurological: Yes: Alert, Oriented Psychiatric: Yes: Alert Labs: CBC, BMP 08/12/16 06:15 08/12/16 06:15 INR, PTT INR 1.13 (0.82-1.09) 08/05/16 17:20 Assessment/Plan Assessment/Plan (1) Urinary tract infection with sepsis Code(s): N39.0 - URINARY TRACT INFECTION, SITE NOT SPECIFIED Qualifiers: Urinary tract infection type: acute cystitis Hematuria presence: without hematuria Qualified Code(s): N30.00 - Acute cystitis without hematuria (2) Suprapubic catheter dysfunction Code(s): T83.018A - BREAKDOWN (MECHANICAL) OF OTHER URINARY CATHETER, INIT Qualifiers: Encounter type: sequela Qualified Code(s): T83.010S - Breakdown ( mechanical) of cystostomy catheter, sequela (3) COPD (chronic obstructive pulmonary disease) Code(s): J44.9 - CHRONIC OBSTRUCTIVE PULMONARY DISEASE, UNSPECIFIED Qualifiers : Chronic bronchitis type: unspecified (4) Cavitary lesion of lung Code(s): J98.4 - OTHER DISORDERS OF LUNG (5) Dysphagia Code(s): R13.10 - DYSPHAGIA, UNSPECIFIED (6) Dystonia Code(s): G24.9 - DYSTONIA, UNSPECIFIED (7) Neurogenic bladder Code(s): N31.9 - NEUROMUSCULAR DYSFUNCTION OF BLADDER, UNSPECIFIED plan continue current mgmt patient improving ct abx for now will consider stopping abx tomorrow
--- NOTE | 2016-08-12 13:43 | PN ---
Progress Note (short form) - Note Progress Note: Physical Exam: SUBJECTIVE: No acute event since yesterday. Received NS 500 cc bolus for low blood pressure. No orthostatic drop in blood pressure. Denies nausea, vomiting, abdominal pain. Afebrile. OBJECTIVE: had suprapubic catheter changed on 08/09, will need change of becerra monthly Vital Signs Period Temp Pulse Resp BP Sys/Marroquin Pulse Ox Last 24 Hr 97.9 F-99.3 F 51-76 18-18 85-118/49-65 97-97 GENERAL: The patient is awake, alert, and fully oriented, in no acute distress. HEAD: Normal with no signs of trauma. EYES: PERRL, extraocular movements intact, sclera anicteric, conjunctiva clear. No ptosis. ENT: Ears normal, nares patent, oropharynx clear without exudates, moist mucous membranes. NECK: Trachea midline, full range of motion, supple. LUNGS: Breath sounds equal, clear to auscultation bilaterally, no wheezes, no crackles, no accessory muscle use. HEART: Regular rate and rhythm, S1, S2 without murmur, rub or gallop. ABDOMEN: Soft, nontender, nondistended, normoactive bowel sounds, no guarding, no rebound, no hepatosplenomegaly, no masses. EXTREMITIES: 2+ pulses, warm, well-perfused, no edema. NEUROLOGICAL: Normal speech, gait not observed. PSYCH: Normal mood, normal affect. SKIN: suprapubic catheter (changed yesterday) and peg tube in place CBC, BMP 08/12/16 06:15 08/12/16 06:15 Active Medications Generic Name Dose Route Start Last Admin Trade Name Freq PRN Reason Stop Dose Admin Acetaminophen 650 mg 08/05/16 20:29 Tylenol Oral Solution - PEG Q4H PRN FEVER OR PAIN Albuterol Sulfate 1 amp 08/05/16 20:18 Ventolin 0.083% Nebulizer Soln - NEB TID PRN SHORT OF BREATH/WHEEZING Albuterol Sulfate 2 puff 08/05/16 20:18 Ventolin Hfa Inhaler - IH Q4H PRN ASTHMA Budesonide/Formoterol Fumarate 2 puff 08/05/16 22:00 08/10/16 11:06 Symbicort 160/4.5mcg - IH Not Given BID [facility] Diazepam 5 mg 08/05/16 22:00 08/10/16 13:41 Valium - GT 5 mg TID [facility] Administration Docusate Sodium 300 mg 08/05/16 23:15 08/09/16 21:06 Colace Liquid - PO 300 mg HS [facility] Administration Heparin Sodium (Porcine) 5,000 unit 08/05/16 22:00 08/10/16 09:22 Heparin - SQ 5,000 unit BID [facility] Administration Levofloxacin 100 mls @ 100 mls/hr 08/06/16 10:00 08/10/16 09:21 Levaquin 500 Mg Premixed Ivpb - IVPB 100 mls/hr DAILY [facility] Administration Aztreonam 1 gm/ Dextrose 50 mls @ 100 mls/hr 08/08/16 18:00 08/10/16 11:06 IVPB 100 mls/hr Q8H-IV [facility] Administration Protocol Metoclopramide HCl 5 mg 08/05/16 22:00 08/10/16 09:21 Reglan Oral Solution - GT 5 mg BID [facility] Administration Polyethylene Glycol 17 gm 08/05/16 20:18 Miralax (For Daily Use) - GT DAILY PRN CONSTIPATION Ranitidine HCl 150 mg 08/06/16 10:00 08/10/16 09:21 Zantac Oral Solution - PEG 150 mg DAILY [facility] Administration Tramadol HCl 50 mg 08/05/16 20:18 08/08/16 15:00 Ultram - PEG 50 mg Q6H PRN Administration PAIN ASSESSMENT/PLAN: Patient is a 60 year old male with a significant past medical history of dystonia, chronic suprapubic catheter, PEG tube secondary to dysphagia and s/p VATS procedure. He presented to the ED on 08/05/2016 with pain in suprapubic area of burning quality, which he relates similar to prior UTI's. On admission he was noted to have a fever of 102.6F, WBC of 15.5, and therefore had sepsis on admission. Sepsis: UTI/met SIRS criteria on admission Assessment/Plan: Urine cultures + pseudomonas Met SIRS criteria on admission: leukocytosis, febrile 102.6F Leukocytosis improving 15.5>6.4 Continue Levaquin 500mg (started 09/06) and Aztreonam 1 gram q8 (started 09/09) Urine output adequate, remains afebrile suprapubic catheter changed ID following Neurogenic Bladder - chronic Assessment/Plan: suprapubic catheter changed 08/09 monitor intake and output Pulmonary: COPD - not in acute exacerbation Assessment/Plan: On albuterol prn tolerating room air monitor closely Cavitary lesion of left lung on last admission Assessment/Plan - VATS procedure on last admission Now stable, monitor respiratory status Tolerating room air Dysphagia: Assessment/Plan: NPO Peg bolus feeds scheduled F.E.N. Fluids: PEG tube scheduled bolus feedings with water flushes Electrolytes: within normal limits Nutrition: PEG tube feeds Prophylaxis: GI: Zantac via PEG DVT: Heparin BID Disposition: continues to require inpatient hospitalization. Full Code.
[2016-08-12] MEDS: DOCUSATE NA 100 MG/10 ML UNIT-DOSE CUPS PO SCH (21:10)
[2016-08-13] MEDS ORDERED: PT OWN MED DRAWER 7, Y5N ONE ×2 (02:19→10:32)
[2016-08-13] MEDS: AZTREONAM 1 GM in DEXTROSE 5%-WATER - 50 ML IVPB SCH ×2 (02:26→11:02)
[2016-08-13] MEDS: diazePAM 5 MG TABLET GT SCH ×3 (06:42→21:36)
[2016-08-13 07:45] LABS: BASOPHIL 0.5 % (0-2.0); EOSINOPHIL 4.6 % (0-4.5); MCH 32.6 pg (25.7-33.7); MCHC 33.6 g/dl (32.0-35.9); NEUTROPHILS 55.9 % (42.8-82.8); PLATELET COUNT 208 K/MM3 (134-434); RDW 12.9 % (11.9-15.9); WHITE BLOOD COUNT 6.4 K/mm3 (4.0-10.0)
[2016-08-13 07:55] LABS: ALBUMIN 3.3 g/dl (3.4-5.0); ANION GAP 7 (8-16); CALCIUM 8.8 mg/dL (8.5-10.1); CO2 33 mmol/L (21-32); GLUCOSE,RANDOM 85 mg/dL (74-106)
[2016-08-13 07:58] LABS: ALK PHOS 64 U/L (45-117); BILIRUBIN,TOTAL 0.5 mg/dL (0.2-1.0); CREATININE 0.5 mg/dL (0.7-1.3); SGOT/AST 20 U/L (15-37); SGPT/ALT 33 U/L (12-78); TOT PROT 6.1 g/dl (6.4-8.2)
[2016-08-13] MEDS: HEPARIN NA (PORCINE) 5,000 UNITS/ML 1ML VIAL SQ SCH ×2 (11:02→21:35)
[2016-08-13] MEDS: METOCLOPRAMIDE HCL 5 MG/5 ML UNIT DOSE CUP GT SCH ×2 (11:02→21:36)
[2016-08-13] MEDS: RANITIDINE HCL 150 MG/10 ML UNIT-DOSE CUP PEG SCH (11:02)
--- NOTE | 2016-08-13 13:28 | PN ---
Progress Note, Physician History of Present Illness: patient feeling very weak otherwise no issues - Current Medication List Current Medications: Active Medications Acetaminophen (Tylenol Oral Solution -) 650 mg PEG Q4H PRN PRN Reason: FEVER OR PAIN Albuterol Sulfate (Ventolin Hfa Inhaler -) 2 puff IH Q4H PRN PRN Reason: ASTHMA Diazepam (Valium -) 5 mg GT TID [facility] Last Admin: 08/13/16 06:42 Dose: 5 mg Docusate Sodium (Colace Liquid -) 300 mg PO HS [facility] Last Admin: 08/12/16 21:10 Dose: 300 mg Heparin Sodium (Porcine) (Heparin -) 5,000 unit SQ BID [facility] Last Admin: 08/13/16 11:02 Dose: 5,000 unit Metoclopramide HCl (Reglan Oral Solution -) 5 mg GT BID [facility] Last Admin: 08/13/16 11:02 Dose: 5 mg Polyethylene Glycol (Miralax (For Daily Use) -) 17 gm GT DAILY PRN PRN Reason: CONSTIPATION Ranitidine HCl (Zantac Oral Solution -) 150 mg PEG DAILY [facility] Last Admin: 08/13/16 11:02 Dose: 150 mg - Objective Vital Signs: Vital Signs Temperature 97.6 F 08/13/16 09:00 Pulse Rate 59 L 08/13/16 09:00 Respiratory Rate 18 08/13/16 09:00 Blood Pressure 118/70 08/13/16 09:00 O2 Sat by Pulse Oximetry (%) 96 08/13/16 09:00 Constitutional: Yes: No Distress, Calm Neck: Yes: Supple Cardiovascular: Yes: Regular Rate and Rhythm Respiratory: Yes: Regular, CTA Bilaterally Gastrointestinal: Yes: Normal Bowel Sounds, Soft, Other (peg tube in place) Musculoskeletal: Yes: WNL Extremities: Yes: Other Neurological: Yes: Alert, Oriented Psychiatric: Yes: Alert Labs: CBC, BMP 08/13/16 06:30 08/13/16 06:30 INR, PTT INR 1.13 (0.82-1.09) 08/05/16 17:20 Assessment/Plan Assessment/Plan (1) Urinary tract infection with sepsis Code(s): N39.0 - URINARY TRACT INFECTION, SITE NOT SPECIFIED Qualifiers: Urinary tract infection type: acute cystitis Hematuria presence: without hematuria Qualified Code(s): N30.00 - Acute cystitis without hematuria (2) Suprapubic catheter dysfunction Code(s): T83.018A - BREAKDOWN (MECHANICAL) OF OTHER URINARY CATHETER, INIT Qualifiers: Encounter type: sequela Qualified Code(s): T83.010S - Breakdown ( mechanical) of cystostomy catheter, sequela (3) COPD (chronic obstructive pulmonary disease) Code(s): J44.9 - CHRONIC OBSTRUCTIVE PULMONARY DISEASE, UNSPECIFIED Qualifiers : Chronic bronchitis type: unspecified (4) Cavitary lesion of lung Code(s): J98.4 - OTHER DISORDERS OF LUNG (5) Dysphagia Code(s): R13.10 - DYSPHAGIA, UNSPECIFIED (6) Dystonia Code(s): G24.9 - DYSTONIA, UNSPECIFIED (7) Neurogenic bladder Code(s): N31.9 - NEUROMUSCULAR DYSFUNCTION OF BLADDER, UNSPECIFIED plan continue current mgmt patient improving ct abx for now stopped abx
--- NOTE | 2016-08-13 13:52 | PN ---
Progress Note, Physician Chief Complaint: Mr Nash complains about feeling weak. No cp, sob, n/v. - Current Medication List Current Medications: Active Medications Acetaminophen (Tylenol Oral Solution -) 650 mg PEG Q4H PRN PRN Reason: FEVER OR PAIN Albuterol Sulfate (Ventolin Hfa Inhaler -) 2 puff IH Q4H PRN PRN Reason: ASTHMA Diazepam (Valium -) 5 mg GT TID [facility] Last Admin: 08/13/16 13:42 Dose: 5 mg Docusate Sodium (Colace Liquid -) 300 mg PO HS [facility] Last Admin: 08/12/16 21:10 Dose: 300 mg Heparin Sodium (Porcine) (Heparin -) 5,000 unit SQ BID [facility] Last Admin: 08/13/16 11:02 Dose: 5,000 unit Metoclopramide HCl (Reglan Oral Solution -) 5 mg GT BID [facility] Last Admin: 08/13/16 11:02 Dose: 5 mg Polyethylene Glycol (Miralax (For Daily Use) -) 17 gm GT DAILY PRN PRN Reason: CONSTIPATION Ranitidine HCl (Zantac Oral Solution -) 150 mg PEG DAILY [facility] Last Admin: 08/13/16 11:02 Dose: 150 mg - Objective Vital Signs: Vital Signs Temperature 97.6 F 08/13/16 09:00 Pulse Rate 59 L 08/13/16 09:00 Respiratory Rate 18 08/13/16 09:00 Blood Pressure 118/70 08/13/16 09:00 O2 Sat by Pulse Oximetry (%) 96 08/13/16 09:00 Constitutional: Yes: No Distress, Calm, Thin Cardiovascular: Yes: Regular Rate and Rhythm. No: Gallop, Murmur, Rub Respiratory: Yes: Regular, CTA Bilaterally. No: Rales, Rhonchi, Wheezes Gastrointestinal: Yes: Normal Bowel Sounds, Soft. No: Distention, Tenderness Extremities: Yes: WNL Edema: No Labs: CBC, BMP 08/13/16 06:30 08/13/16 06:30 INR, PTT INR 1.13 (0.82-1.09) 08/05/16 17:20 Assessment/Plan (1) Urinary tract infection with sepsis Assessment/Plan: -appreciate ID assistance -note reviewed, stopping antibiotics today -monitor off of antibiotics Code(s): N39.0 - URINARY TRACT INFECTION, SITE NOT SPECIFIED Qualifiers: Urinary tract infection type: acute cystitis Hematuria presence: without hematuria Qualified Code(s): N30.00 - Acute cystitis without hematuria (2) Suprapubic catheter dysfunction Assessment/Plan: -changed Code(s): T83.018A - BREAKDOWN (MECHANICAL) OF OTHER URINARY CATHETER, INIT Qualifiers: Encounter type: sequela Qualified Code(s): T83.010S - Breakdown ( mechanical) of cystostomy catheter, sequela (3) COPD (chronic obstructive pulmonary disease) Assessment/Plan: -not in exacerbation -continue current regimen Code(s): J44.9 - CHRONIC OBSTRUCTIVE PULMONARY DISEASE, UNSPECIFIED Qualifiers : Chronic bronchitis type: unspecified (4) Cavitary lesion of lung Assessment/Plan: -stable (s/p VATS) Code(s): J98.4 - OTHER DISORDERS OF LUNG (5) Dysphagia Assessment/Plan: -PEG tube present/ Peg feeds Code(s): R13.10 - DYSPHAGIA, UNSPECIFIED (6) Dystonia Assessment/Plan: -has PEG and Suprapubic catheter -also with weakness, consult neurology Code(s): G24.9 - DYSTONIA, UNSPECIFIED (7) Neurogenic bladder Assessment/Plan: -suprapubic catheter present Code(s): N31.9 - NEUROMUSCULAR DYSFUNCTION OF BLADDER, UNSPECIFIED
--- NOTE | 2016-08-13 15:51 | CONSULT ---
Consult Consult Specialty:: Neurology Reason for Consultation:: Spasticity - History of Present Illness History of Present Illness: 60 year old man with history of cervical neck injury?, dystonia, chronic suprapubic catheter, PEG tube secondary to dysphagia and s/p VATS procedure, presented to the ED with subprapubic pain secondary to UTI. On admission, patient was febrile with temperature 102.6F, WBC 15.5, and is currently being treated for urosepsis. Neurology consulted for history of dystonia/spasticity. As per patient, he developed dystonia many years ago and is currently maintained on valium TID. He follows with an outpatient neurologist - Dr. Pa [phone]. As per patient, he has attempted multiple medications in the past for spasticity, and has noted some worsening in symptoms but states he is able to walk at baseline. He denies any new neurological complaints or symptoms. 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 (Muscular dystonia since age 21 year) Cardio/Vascular: Yes: HTN Pulmonary: Yes: Asthma, Pneumonia, Sleep Apnea, Other (Cavitary lesion in lung ruled out for TB) Gastrointestinal: Yes: Constipation, GERD, Other (dysphagia) Hepatobiliary: Yes: Other (as noted in medical record.) Renal/: Yes: BPH (s/p thermal prostate procedure), Neurogenic Bladder ( suprapubic tube ), UTI Infectious Disease: Yes: Other (influenza b august 2013) Psych: Yes: Depression Musculoskeletal: Yes: Other (Muscular dystonia) - Past Surgical History Past Surgical History: Yes: Laminectomy (cervical laminectomy with fusion) - Alcohol/Substance Use Hx Alcohol Use: No History of Substance Use: reports: None, Marijuana (years ago. No current use) Date of Last Use: 05/18/78 (estimated) - Smoking History Smoking history: Never smoked Have you smoked in the past 12 months: No Aproximately how many cigarettes per day: 0 - Social History Usual Living Arrangement: Other (Mr. Richard reports that he was born and raised in [place]. He attended several colleges including [employer], [email or web address], and [employer]. He briefly attended [employer] but discontinued due to financial reasons. 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 In 1986, Mr. Nash was disabled s/p a weightlifting accident that fractured his neck. 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 History of Recent Travel: No Home Medications - Allergies Allergies/Adverse Reactions: Allergies Allergy/AdvReac Type Severity Reaction Status Date / Time iodine Allergy Severe Low Blood Verified 08/05/16 16:13 Pressure kiwi Allergy Intermediate Swelling Verified 08/05/16 16:13 ampicillin sodium Allergy Rash Verified 08/05/16 16:13 [From Unasyn] Fish Containing Products Allergy Difficulty Verified 08/05/16 16:13 Breathing Penicillins Allergy Rash Verified 08/05/16 16:13 sulbactam sodium Allergy Rash Verified 08/05/16 16:13 [From Unasyn] Sulfa (Sulfonamide Allergy Hives Verified 08/05/16 16:13 Antibiotics) [Sulfa(Sulfonamide Antibiotics)] - Home Medications Home Medications: Ambulatory Orders Diazepam [Valium] 5 mg GT TID 04/23/14 Albuterol Sulfate [Proair Hfa -] 1 - 2 inh PO QID PRN 04/12/15 Budesonide/Formeterol Fumarate [SYMBICORT 160/4.5mcg -] 2 inh PO BID 04/12/15 Methenamine/Sodium Salicylate [Cystex Plus Tablet] 1 each GT DAILY 04/12/15 Heparin - 5,000 unit SQ BID vial 04/25/16 Albuterol 0.083% Nebulizer Jojo [Ventolin 0.083% Nebulizer Soln -] 1 amp NEB TID PRN 08/05/16 Docusate Sodium [Colace -] 300 mg GT HS 08/05/16 Metoclopramide HCl 5 mg GT BID 08/05/16 Polyethylene Glycol 3350 [Miralax (For Daily Use) -] 17 gm GT DAILY PRN Ranitidine [Zantac -] 150 mg GT BID 08/05/16 Tramadol HCl 50 mg GT Q6H PRN 08/05/16 Family Disease History - Family Disease History Family Disease History: Diabetes: Father (mild cognitive decline), Heart Disease : Father, CA: Mother (, colon cancer), Other: Father Review of Systems - Review of Systems Constitutional: reports: Fever Eyes: reports: No Symptoms Cardiovascular: reports: No Symptoms Respiratory: reports: No Symptoms Genitourinary: reports: Burning Neurological: reports: Other (spasticity) Physical Exam Vital Signs: Vital Signs Temperature 98.6 F 08/13/16 14:27 Pulse Rate 73 08/13/16 14:27 Respiratory Rate 18 08/13/16 14:27 Blood Pressure 98/56 08/13/16 14:27 O2 Sat by Pulse Oximetry (%) 96 08/13/16 09:00 Constitutional: Yes: Well Nourished, No Distress Eyes: Yes: Conjunctiva Clear, EOM Intact HENT: Yes: Atraumatic, Normocephalic Cardiovascular: Yes: S1, S2 Neurological: Yes: Alert, Oriented (+dysarthria +spasticity right arm/leg> left arm/leg motor- 5/5 x4 sensory intact to light touch) Labs: CBC, BMP 08/13/16 06:30 08/13/16 06:30 Assessment/Plan 60 year old man with history of cervical neck injury?, dystonia, chronic suprapubic catheter, PEG tube secondary to dysphagia and s/p VATS procedure, presented to the ED with subprapubic pain secondary to UTI. On admission, patient was febrile with temperature 102.6F, WBC 15.5, and is currently being treated for urosepsis. Neurology consulted for history of dystonia/spasticity. As per patient, he developed dystonia many years ago and is currently maintained on valium TID. He follows with an outpatient neurologist - Dr. Pa [phone]. As per patient, he has attempted multiple medications in the past for spasticity, and has noted some worsening in symptoms but states he is able to walk at baseline. He denies any new neurological complaints or symptoms. Spasticity, chronic Continue valium TID Physical therapy Once medical issues and patient stabilized, recommend close neuro follow up as outpatient, can consider baclofen as an alternate agent on outpatient follow up Continue supportive care
[2016-08-13] MEDS: DOCUSATE NA 100 MG/10 ML UNIT-DOSE CUPS PO SCH (23:19)
[2016-08-14] MEDS: diazePAM 5 MG TABLET GT SCH ×2 (06:13→14:33)
[2016-08-14 08:35] LABS: BASOPHIL 0.4 % (0-2.0); EOSINOPHIL 4.4 % (0-4.5); MCH 32.6 pg (25.7-33.7); MCHC 33.8 g/dl (32.0-35.9); MEAN CELL VOLUME 96.3 fl (80-96); MEAN PLT VOLUME 7.9 fl (7.5-11.1); NEUTROPHILS 59.9 % (42.8-82.8); PLATELET COUNT 210 K/MM3 (134-434); WHITE BLOOD COUNT 6.2 K/mm3 (4.0-10.0)
[2016-08-14 09:38] LABS: CALCIUM 9.1 mg/dL (8.5-10.1); CREATININE 0.4 mg/dL (0.7-1.3); MAGNESIUM 2.5 mg/dL (1.8-2.4)
[2016-08-14] MEDS: HEPARIN NA (PORCINE) 5,000 UNITS/ML 1ML VIAL SQ SCH (09:45)
[2016-08-14] MEDS: RANITIDINE HCL 150 MG/10 ML UNIT-DOSE CUP PEG SCH (09:45)
[2016-08-14] MEDS: METOCLOPRAMIDE HCL 5 MG/5 ML UNIT DOSE CUP GT SCH (09:45)
--- NOTE | 2016-08-14 12:06 | DS ---
Physical Examination Vital Signs: Vital Signs Temperature 98.3 F 08/14/16 09:53 Pulse Rate 59 L 08/14/16 09:53 Respiratory Rate 18 08/14/16 09:53 Blood Pressure 107/57 08/14/16 09:53 O2 Sat by Pulse Oximetry (%) 97 08/13/16 21:00 Constitutional: Yes: No Distress, Calm, Thin Cardiovascular: Yes: Regular Rate and Rhythm. No: Gallop, Murmur, Rub Respiratory: Yes: Regular, CTA Bilaterally. No: Rales, Rhonchi, Wheezes Gastrointestinal: Yes: Normal Bowel Sounds, Soft. No: Distention, Tenderness Extremities: Yes: WNL Edema: No Labs: CBC, BMP 08/14/16 07:00 08/14/16 07:00 Discharge Summary Reason For Visit: UTI FEVER Current Active Problems Fever (Acute) Suprapubic catheter dysfunction (Acute) Urinary tract infection (Acute) Urinary tract infection after immobility (Acute) Hospital Course: (1) Urinary tract infection with sepsis Code(s): N39.0 - URINARY TRACT INFECTION, SITE NOT SPECIFIED Qualifiers: Urinary tract infection type: acute cystitis Hematuria presence: without hematuria Qualified Code(s): N30.00 - Acute cystitis without hematuria (2) Suprapubic catheter dysfunction Code(s): T83.018A - BREAKDOWN (MECHANICAL) OF OTHER URINARY CATHETER, INIT Qualifiers: Encounter type: sequela Qualified Code(s): T83.010S - Breakdown ( mechanical) of cystostomy catheter, sequela (3) COPD (chronic obstructive pulmonary disease) Code(s): J44.9 - CHRONIC OBSTRUCTIVE PULMONARY DISEASE, UNSPECIFIED Qualifiers : Chronic bronchitis type: unspecified (4) Cavitary lesion of lung Code(s): J98.4 - OTHER DISORDERS OF LUNG (5) Dysphagia Code(s): R13.10 - DYSPHAGIA, UNSPECIFIED (6) Dystonia Code(s): G24.9 - DYSTONIA, UNSPECIFIED (7) Neurogenic bladder Code(s): N31.9 - NEUROMUSCULAR DYSFUNCTION OF BLADDER, UNSPECIFIED Mr Nash is a pleasant 60 year old who presented to the hospital with fevers and was found to have a UTI with sepsis. He was admitted to the hospital and seen by ID. He was started on antibiotics and finished a full course here. He improved significantly. He has severe dystonia and was having further weakness, he was seen by neurology and will be followed as an outpatient. Currently he is stable for discharge back to SNF. 35 minutes spent in preparation of this discharge Condition: Good - Instructions Diet, Activity, Other Instructions: resume previous diet and activity. Referrals: Abad Tanner MD [Primary Care Provider] - Disposition: RESIDENTIAL FACILITY - Home Medications Comprehensive Discharge Medication List: Ambulatory Orders Diazepam [Valium] 5 mg GT TID 04/23/14 Albuterol Sulfate [Proair Hfa -] 1 - 2 inh PO QID PRN 04/12/15 Budesonide/Formeterol Fumarate [SYMBICORT 160/4.5mcg -] 2 inh PO BID 04/12/15 Methenamine/Sodium Salicylate [Cystex Plus Tablet] 1 each GT DAILY 04/12/15 Heparin - 5,000 unit SQ BID vial 04/25/16 Albuterol 0.083% Nebulizer Jojo [Ventolin 0.083% Nebulizer Soln -] 1 amp NEB TID PRN 08/05/16 Docusate Sodium [Colace -] 300 mg GT HS 08/05/16 Metoclopramide HCl 5 mg GT BID 08/05/16 Polyethylene Glycol 3350 [Miralax 119 gm Btl -] 17 gm GT DAILY PRN 08/05/16 Ranitidine [Zantac -] 150 mg GT BID 08/05/16 Tramadol HCl 50 mg GT Q6H PRN 08/05/16
[2016-08-14 13:25] VITALS: BP 115/60; PULSE 64; TEMP 98.9
--- NOTE | 2016-08-14 15:11 | PN ---
Progress Note, Physician History of Present Illness: stable no new issues doing well - Current Medication List Current Medications: Active Medications Acetaminophen (Tylenol Oral Solution -) 650 mg PEG Q4H PRN PRN Reason: FEVER OR PAIN Albuterol Sulfate (Ventolin Hfa Inhaler -) 2 puff IH Q4H PRN PRN Reason: ASTHMA Diazepam (Valium -) 5 mg GT TID [facility] Last Admin: 08/14/16 14:33 Dose: 5 mg Docusate Sodium (Colace Liquid -) 300 mg PO HS [facility] Last Admin: 08/13/16 23:19 Dose: Not Given Heparin Sodium (Porcine) (Heparin -) 5,000 unit SQ BID [facility] Last Admin: 08/14/16 09:45 Dose: 5,000 unit Metoclopramide HCl (Reglan Oral Solution -) 5 mg GT BID [facility] Last Admin: 08/14/16 09:45 Dose: 5 mg Polyethylene Glycol (Miralax (For Daily Use) -) 17 gm GT DAILY PRN PRN Reason: CONSTIPATION Ranitidine HCl (Zantac Oral Solution -) 150 mg PEG DAILY [facility] Last Admin: 08/14/16 09:45 Dose: 150 mg - Objective Vital Signs: Vital Signs Temperature 98.9 F 08/14/16 13:25 Pulse Rate 64 08/14/16 13:25 Respiratory Rate 18 08/14/16 13:25 Blood Pressure 115/60 08/14/16 13:25 O2 Sat by Pulse Oximetry (%) 97 08/14/16 09:00 Constitutional: Yes: No Distress, Calm Cardiovascular: Yes: Regular Rate and Rhythm Respiratory: Yes: Regular, CTA Bilaterally Gastrointestinal: Yes: Normal Bowel Sounds, Soft, Other (peg in place) Genitourinary: Yes: Other (suprapubic) Musculoskeletal: Yes: Other Extremities: Yes: Other Neurological: Yes: Alert, Oriented Psychiatric: Yes: Alert Labs: CBC, BMP 08/14/16 07:00 08/14/16 07:00 INR, PTT INR 1.13 (0.82-1.09) 08/05/16 17:20 Assessment/Plan Assessment/Plan (1) Urinary tract infection with sepsis Code(s): N39.0 - URINARY TRACT INFECTION, SITE NOT SPECIFIED Qualifiers: Urinary tract infection type: acute cystitis Hematuria presence: without hematuria Qualified Code(s): N30.00 - Acute cystitis without hematuria (2) Suprapubic catheter dysfunction Code(s): T83.018A - BREAKDOWN (MECHANICAL) OF OTHER URINARY CATHETER, INIT Qualifiers: Encounter type: sequela Qualified Code(s): T83.010S - Breakdown ( mechanical) of cystostomy catheter, sequela (3) COPD (chronic obstructive pulmonary disease) Code(s): J44.9 - CHRONIC OBSTRUCTIVE PULMONARY DISEASE, UNSPECIFIED Qualifiers : Chronic bronchitis type: unspecified (4) Cavitary lesion of lung Code(s): J98.4 - OTHER DISORDERS OF LUNG (5) Dysphagia Code(s): R13.10 - DYSPHAGIA, UNSPECIFIED (6) Dystonia Code(s): G24.9 - DYSTONIA, UNSPECIFIED (7) Neurogenic bladder Code(s): N31.9 - NEUROMUSCULAR DYSFUNCTION OF BLADDER, UNSPECIFIED plan continue current mgmt patient improving stable off of abx
== END 2016-08-14 17:30 | disposition home or self-care (01) | DRG 872 ==
LOC: JER 16:05 → JERBED 19:12 → J5S 22:19
PROVIDERS: ADMIT Internal Medicine; ATTEND Internal Medicine
DX: A41.9 Sepsis, unspecified organism (principal); N30.00 Acute cystitis without hematuria; T83.010 Breakdown (mechanical) of cystostomy catheter; Y84.6 Urinary catheterization as the cause of abnormal reaction of the patient, or of later complication, without mention of misadventure at the time of the procedure; J44.9 Chronic obstructive pulmonary disease, unspecified; Z87.891 Personal history of nicotine dependence; K21.9 Gastro-esophageal reflux disease without esophagitis; I10 Essential (primary) hypertension; J98.4 Other disorders of lung; R13.10 Dysphagia, unspecified; G24.9 Dystonia, unspecified; N31.9 Neuromuscular dysfunction of bladder, unspecified; Z93.1 Gastrostomy status
CPT/HCPCS: 36415; 71010-TC; 76775-TC; 76856-TC; 80048; 80053; 81003; 81015; 82550; 82803; 83605; 83735; 84100; 84484; 85025; 85610; 85730; 86850; 86900; 86901; 87040; 87086; 87186; 88300-TC; 93005; 93010; 94010; 97116-GP; 97161-GP; 99284-25; J1644

== ENCOUNTER 2016-09-21 14:35 | Inpatient (IN) | payer OTHER, BC ==
--- NOTE | 2016-09-21 15:30 | PDOC ---
History of Present Illness - General Chief Complaint: Vomiting Blood Stated Complaint: GI BLEED Time Seen by Provider: 09/21/16 14:47 - History of Present Illness Initial Comments: Attending Attestation - Resident Resident Name: Benjie Jacques - ED Attending Attestation I have performed the following: I have examined & evaluated the patient, The case was reviewed & discussed with the resident, I agree w/resident's findings & plan, Exceptions are as noted - HPI HPI: 60 yo M hx cervical fusion s/p fracture, dystonia, neurogenic bladder, PEG tube presents with hemoptysis. He states that he woke up to coughing this morning at 4am, estimates that he coughed up approximately 3-4 tablespoons of bright red blood. He has had additional episodes since then, but the bleeding has been lessening. He states that since his PEG tube was placed in March, he has had GERD symptoms, which have not changed. Denies N/V, f/c, recent travel, TB exposures. - Physicial Exam PE: GENERAL: Awake, alert, and fully oriented, in no acute distress HEAD: No signs of trauma EYES: PERRLA, EOMI, sclera anicteric, conjunctiva clear ENT: Auricles normal inspection, hearing grossly normal, nares patent, oropharynx clear without exudates. Dry mucosa NECK: Normal ROM, supple, no lymphadenopathy, JVD, or masses LUNGS: Breath sounds equal, clear to auscultation bilaterally. No wheezes, and no crackles HEART: Regular rate and rhythm, normal S1 and S2, no murmurs, rubs or gallops ABDOMEN: Soft, nontender, normoactive bowel sounds. No guarding, no rebound. No masses. +PEG tube to LUQ, site clean and dry. +Suprapubic cath, +protrusion of granulation tissue, but no induration or erythema. EXTREMITIES: Normal range of motion, no edema. No clubbing or cyanosis. No cords, erythema, or tenderness NEUROLOGICAL: Cranial nerves II through XII grossly intact. Normal speech, normal gait SKIN: Warm, Dry, normal turgor, no rashes or lesions noted. - Medical Decision Making Pt with hemoptysis. DDx includes pna, aspiration pna, PE, mass. Likely admission. Past History - Past Medical History Allergies/Adverse Reactions: Allergies Allergy/AdvReac Type Severity Reaction Status Date / Time iodine Allergy Severe Low Blood Verified 09/21/16 14:45 Pressure kiwi Allergy Intermediate Swelling Verified 09/21/16 14:45 latex Allergy Unknown Swelling Verified 09/22/16 08:56 shellfish derived Allergy Unknown Verified 09/21/16 14:45 ampicillin sodium Allergy Rash Verified 09/21/16 14:45 [From Unasyn] Fish Containing Products Allergy Difficulty Verified 09/21/16 14:45 Breathing Penicillins Allergy Rash Verified 09/21/16 14:45 sulbactam sodium Allergy Rash Verified 09/21/16 14:45 [From Unasyn] Sulfa (Sulfonamide Allergy Hives Verified 09/21/16 14:45 Antibiotics) [Sulfa(Sulfonamide Antibiotics)] Home Medications: Ambulatory Orders Diazepam [Valium] 5 mg GT TID 04/23/14 Albuterol Sulfate [Proair Hfa -] 1 - 2 inh PO QID PRN 04/12/15 Methenamine/Sodium Salicylate [Cystex Plus Tablet] 1 each GT DAILY 04/12/15 Heparin - 5,000 unit SQ BID vial 04/25/16 Albuterol 0.083% Nebulizer Jojo [Ventolin 0.083% Nebulizer Soln -] 1 amp NEB TID PRN 08/05/16 Docusate Sodium [Colace -] 300 mg GT HS 08/05/16 Metoclopramide HCl 5 mg GT BID 08/05/16 Polyethylene Glycol 3350 [Miralax 119 gm Btl -] 17 gm GT DAILY PRN 08/05/16 Ranitidine [Zantac -] 150 mg GT BID 08/05/16 Tramadol HCl 50 mg GT Q6H PRN 08/05/16 Bisacodyl [Biscolax] 10 mg RC PRN 09/21/16 Polyethylene Glycol 3350 [Miralax (For Daily Use) -] 17 gm PO DAILY 09/21/16 Asthma: Yes COPD: Yes GI Disorders: Yes (GERD) Disorders: Yes (NEUROGENIC BLADDER) HTN: Yes Psychiatric Problems: Yes (Anxiety,) - Surgical History GI Surgery: Yes (PEG TUBE.) Neurologic Surgery: Yes (cervical fusion, dystonia) Orthopedic Surgery: Yes - Immunization History Immunization Up to Date: Yes - Psycho/Social/Smoking Cessation Hx Anxiety: No Suicidal Ideation: No Smoking History: Never smoked Have you smoked in the past 12 months: No Number of Cigarettes Smoked Daily: 0 Cigars Per Day: 0 Hx Alcohol Use: No Drug/Substance Use Hx: No Substance Use Type: Alcohol Hx Substance Use Treatment: No *Physical Exam - Vital Signs Last Vital Signs Temp Pulse Resp BP Pulse Ox 98.9 F 70 18 110/56 97 09/21/16 14:42 09/21/16 14:42 09/21/16 14:42 09/21/16 14:42 09/21/16 14:42 ED Treatment Course - LABORATORY CBC & Chemistry Diagram: 09/21/16 15:35 09/21/16 15:35 *DC/Admit/Observation/Transfer Diagnosis at time of Disposition: Hemoptysis Pneumonia Qualifiers: Qualified Code(s): J18.1 - Lobar pneumonia, unspecified organism
[2016-09-21 15:44] LABS: BASOPHIL 0.3 % (0-2.0); EOSINOPHIL 2.3 % (0-4.5); MCH 33.1 pg (25.7-33.7); MCHC 33.6 g/dl (32.0-35.9); MEAN CELL VOLUME 98.6 fl (80-96); MEAN PLT VOLUME 9.1 fl (7.5-11.1); NEUTROPHILS 76.8 % (42.8-82.8); PLATELET COUNT 198 K/MM3 (134-434); RDW 12.9 % (11.9-15.9); WHITE BLOOD COUNT 8.5 K/mm3 (4.0-10.0)
[2016-09-21 15:59] LABS: INR 1.04 (0.82-1.09); PROTHROMBIN TIME (PATIENT) 11.5 SEC (9.98-11.88)
[2016-09-21 16:00] LABS: ALBUMIN 3.6 g/dl (3.4-5.0); ALK PHOS 78 U/L (45-117); ANION GAP 6 (8-16); BILIRUBIN,TOTAL 0.4 mg/dL (0.2-1.0); CALCIUM 8.6 mg/dL (8.5-10.1); CO2 31 mmol/L (21-32); COCKROFT - GAULT 88.11; CREATININE 0.6 mg/dL (0.7-1.3); GLUCOSE,RANDOM 117 mg/dL (74-106); SGOT/AST 31 U/L (15-37); SGPT/ALT 54 U/L (12-78); TOT PROT 6.6 g/dl (6.4-8.2)
[2016-09-21] MEDS ORDERED: SODIUM CHLORIDE 1,000 ML IV STA (18:02)
--- NOTE | 2016-09-21 18:06 | PDOC ---
History of Present Illness <Andreas Deluca - Last Filed: 09/21/16 21:21> - General History Source: Patient Exam Limitations: No Limitations - History of Present Illness Initial Comments: 09/21/16 18:07 60 y/o male w/sig PMH of dystonia, s/p suprapubic catheter, s/p PEG tube presents with c/o coughing up blood. This morning at 4am pt woke up to cough and coughed up approximately 3-4 tablespoons of bright red blood. He had 3 more episodes all of which had less blood until last episode which only had some streaks of blood. Pt states he had these symptoms once before 6-12 months ago. He also c/o some chest pain that is reproducible and some burning pain up and down his sternum since having G-tube placed. Chest pain does not radiate and is described as dull. He does complain of some dizziness over the last month and states his BP has been lower than usual over this time and dizziness was worse with moving up from laying to seated position quickly. He denies any N/V/F/C, diarrhea, abd pain, pain with deep inspiration, light-headedness. <Benjie Jacques - Last Filed: 09/22/16 14:25> - General Chief Complaint: Hemoptysis Stated Complaint: GI BLEED Time Seen by Provider: 09/21/16 14:47 Past History <Andreas Deluca - Last Filed: 09/21/16 21:21> - Past Medical History Asthma: Yes COPD: Yes GI Disorders: Yes (GERD) Disorders: Yes (NEUROGENIC BLADDER) HTN: Yes Psychiatric Problems: Yes (Anxiety,) - Surgical History GI Surgery: Yes (PEG TUBE.) Neurologic Surgery: Yes (cervical fusion, dystonia) Orthopedic Surgery: Yes - Immunization History Immunization Up to Date: Yes - Psycho/Social/Smoking Cessation Hx Anxiety: No Suicidal Ideation: No Smoking History: Never smoked Have you smoked in the past 12 months: No Number of Cigarettes Smoked Daily: 0 Cigars Per Day: 0 Hx Alcohol Use: No Drug/Substance Use Hx: No Substance Use Type: Alcohol Hx Substance Use Treatment: No <Benjie Jacques - Last Filed: 09/22/16 14:25> - Past Medical History Allergies/Adverse Reactions: Allergies Allergy/AdvReac Type Severity Reaction Status Date / Time iodine Allergy Severe Low Blood Verified 09/21/16 14:45 Pressure kiwi Allergy Intermediate Swelling Verified 09/21/16 14:45 latex Allergy Unknown Swelling Verified 09/22/16 08:56 shellfish derived Allergy Unknown Verified 09/21/16 14:45 ampicillin sodium Allergy Rash Verified 09/21/16 14:45 [From Unasyn] Fish Containing Products Allergy Difficulty Verified 09/21/16 14:45 Breathing Penicillins Allergy Rash Verified 09/21/16 14:45 sulbactam sodium Allergy Rash Verified 09/21/16 14:45 [From Unasyn] Sulfa (Sulfonamide Allergy Hives Verified 09/21/16 14:45 Antibiotics) [Sulfa(Sulfonamide Antibiotics)] Home Medications: Ambulatory Orders Diazepam [Valium] 5 mg GT TID 04/23/14 Albuterol Sulfate [Proair Hfa -] 1 - 2 inh PO QID PRN 04/12/15 Methenamine/Sodium Salicylate [Cystex Plus Tablet] 1 each GT DAILY 04/12/15 Heparin - 5,000 unit SQ BID vial 04/25/16 Albuterol 0.083% Nebulizer Jojo [Ventolin 0.083% Nebulizer Soln -] 1 amp NEB TID PRN 08/05/16 Docusate Sodium [Colace -] 300 mg GT HS 08/05/16 Metoclopramide HCl 5 mg GT BID 08/05/16 Polyethylene Glycol 3350 [Miralax 119 gm Btl -] 17 gm GT DAILY PRN 08/05/16 Ranitidine [Zantac -] 150 mg GT BID 08/05/16 Tramadol HCl 50 mg GT Q6H PRN 08/05/16 Bisacodyl [Biscolax] 10 mg RC PRN 09/21/16 Polyethylene Glycol 3350 [Miralax (For Daily Use) -] 17 gm PO DAILY 09/21/16 Review of Systems - Review of Systems Comments:: CONSTITUTIONAL: Absent: fever, chills, diaphoresis, generalized weakness, malaise, loss of appetite HEENT: +hemoptysis Absent: rhinorrhea, nasal congestion, throat pain, throat swelling, difficulty swallowing, mouth swelling, ear pain, eye pain, visual Changes CARDIOVASCULAR: +chest pain, reproducible. +Burning pain behind sternum. Absent:syncope, palpitations, irregular heart rate, lightheadedness, peripheral edema RESPIRATORY: Absent: cough, shortness of breath, dyspnea with exertion, orthopnea, wheezing, stridor, hemoptysis GASTROINTESTINAL:Absent: abdominal pain, abdominal distension, nausea, vomiting , diarrhea, constipation, melena, hematochezia GENITOURINARY: Absent: dysuria, frequency, urgency, hesitancy, hematuria, flank pain, genital pain MUSCULOSKELETAL: Absent: myalgia, arthralgia, joint swelling SKIN: Absent: rash, itching, pallor HEMATOLOGIC/IMMUNOLOGIC: Absent: easy bleeding, easy bruising, lymphadenopathy, frequent infections ENDOCRINE:Absent: unexplained weight gain, unexplained weight loss, heat intolerance, cold intolerance NEUROLOGIC: Absent: headache, focal weakness or paresthesias, dizziness, unsteady gait, seizure, mental status changes, bladder or bowel incontinence PSYCHIATRIC: Absent: anxiety, depression, suicidal or homicidal ideation, hallucinations <Benjie Jacques - Last Filed: 09/22/16 14:25> *Physical Exam - Vital Signs Last Vital Signs Temp Pulse Resp BP Pulse Ox 98.4 F 68 17 116/67 98 09/21/16 19:39 09/21/16 19:39 09/21/16 19:39 09/21/16 19:39 09/21/16 19:39 <Andreas Deluca - Last Filed: 09/21/16 21:21> - Vital Signs Last Vital Signs Temp Pulse Resp BP Pulse Ox 98.9 F 78 18 93/72 98 09/21/16 14:42 09/21/16 17:25 09/21/16 17:25 09/21/16 17:25 09/21/16 17:25 - Physical Exam Comments: 09/21/16 18:15 GENERAL: dystonic, cachetic, Awake and alert. No acute distress. HEENT: +R eye corneal abrasion. Normocephalic, atraumatic, EOMI. No conjunctival pallor. Sclera are non-icteric. Moist mucous membranes. Oropharynx is clear. CARDIOVASCULAR: Regular rate and rhythm. No murmurs, rubs, or gallops. PULMONARY: No evidence of respiratory distress. Lungs clear to auscultation bilaterally. No wheezing, rales or rhonchi. ABDOMINAL: +G-tube with some mucus around site of insertion. +Suprapubic catheter with some inflammation around site of insertion. Non-tender. Non- distended. No rebound or guarding. No organomegaly. Normoactive bowel sounds. EXTREMITIES: No edema. No calf tenderness. SKIN: +G-tube with some mucus around site of insertion. +Suprapubic catheter with some inflammation around site of insertion. NEUROLOGICAL: Alert, awake, appropriate. PSYCHIATRIC: Cooperative. Good eye contact. Appropriate mood and affect. 09/22/16 14:23 <Benjie Jacques - Last Filed: 09/22/16 14:25> Heart Score/ECG Review - ECG Intrepretation Comment:: NSR @ 67 bpm RBBB L anterior fasicular block <Benjie Jacques - Last Filed: 09/22/16 14:25> ED Treatment Course - LABORATORY CBC & Chemistry Diagram: 09/21/16 15:35 09/21/16 15:35 - ADDITIONAL ORDERS Additional order review: Laboratory Results 09/21/16 09/21/16 09/21/16 17:07 15:35 15:35 INR D-Dimer < 200 Sodium 138 Potassium 4.2 Chloride 101 Carbon Dioxide 31 Anion Gap 6 L BUN 21 H D Creatinine 0.6 L D Creat Clearance w eGFR > 60 Random Glucose 117 H D Calcium 8.6 Total Bilirubin 0.4 AST 31 D ALT 54 D Alkaline Phosphatase 78 D Total Protein 6.6 Albumin 3.6 Lipase 83 Blood Type A POSITIVE Antibody Screen Negative 09/21/16 15:35 INR 1.04 D-Dimer Sodium Potassium Chloride Carbon Dioxide Anion Gap BUN Creatinine Creat Clearance w eGFR Random Glucose Calcium Total Bilirubin AST ALT Alkaline Phosphatase Total Protein Albumin Lipase Blood Type Antibody Screen 09/21/16 15:35 RBC 3.85 L MCV 98.6 H MCHC 33.6 RDW 12.9 MPV 9.1 D Neutrophils % 76.8 D Lymphocytes % 9.1 D Monocytes % 11.5 H Eosinophils % 2.3 Basophils % 0.3 - Medications Given in the ED: ED Medications Discontinued Medications Generic Name Dose Route Start Last Admin Trade Name Freq PRN Reason Stop Dose Admin Sodium Chloride 1,000 mls @ 1,000 mls/hr 09/21/16 18:02 09/21/16 18:34 Normal Saline - IV 09/21/16 19:01 1,000 mls/hr ASDIR STA Administration <Yosi,Andreas - Last Filed: 09/21/16 21:21> - LABORATORY CBC & Chemistry Diagram: 09/21/16 15:35 09/21/16 15:35 - ADDITIONAL ORDERS Additional order review: Laboratory Results 09/21/16 09/21/16 09/21/16 17:07 15:35 15:35 INR D-Dimer < 200 Sodium 138 Potassium 4.2 Chloride 101 Carbon Dioxide 31 Anion Gap 6 L BUN 21 H D Creatinine 0.6 L D Creat Clearance w eGFR > 60 Random Glucose 117 H D Calcium 8.6 Total Bilirubin 0.4 AST 31 D ALT 54 D Alkaline Phosphatase 78 D Total Protein 6.6 Albumin 3.6 Lipase 83 Blood Type A POSITIVE Antibody Screen Negative 09/21/16 15:35 INR 1.04 D-Dimer Sodium Potassium Chloride Carbon Dioxide Anion Gap BUN Creatinine Creat Clearance w eGFR Random Glucose Calcium Total Bilirubin AST ALT Alkaline Phosphatase Total Protein Albumin Lipase Blood Type Antibody Screen 09/21/16 15:35 RBC 3.85 L MCV 98.6 H MCHC 33.6 RDW 12.9 MPV 9.1 D Neutrophils % 76.8 D Lymphocytes % 9.1 D Monocytes % 11.5 H Eosinophils % 2.3 Basophils % 0.3 - RADIOLOGY Radiology Studies Ordered: Category Date Time Status CHEST CT WITHOUT CONTRAST [CT] Urgent CT Scan 09/21/16 18:02 Ordered <Benjie Jacques - Last Filed: 09/22/16 14:25> Medical Decision Making - Medical Decision Making 09/21/16 18:10 60 yo male, h/o dystonia, s/p suprapubic catheter, s/p PEG tube presents with c/ o coughing up blood. This morning at 4am pt woke up to cough and coughed up approximately 3-4 tablespoons of bright red blood. He had 3 more episodes all of which had less blood until last episode which only had some streaks of blood. Labs ordered - CBC, CMP, D-dimer CXR ordered. EKG ordered. 09/21/16 18:11 CXR: Dilated esophagus in neck. Clear lungs. EKG: NSR @ 67 bpm, RBBB, L anterior fasicular block. Pt at risk for aspiration and aspiration pna. May be possible cause of hemoptysis. Dr. Braga contacted about admission for gross hemoptysis who recommends getting chest Ct at this time since CXR is negative. If CHest CT negative can d/ c home with abx. Chest CT (non-contrast) ordered to r/o mass. Will reassess following Chest CT <Benjie Jacques - Last Filed: 09/22/16 14:25> *DC/Admit/Observation/Transfer - Discharge Dispostion Admit: Yes <Andreas Deluca - Last Filed: 09/21/16 21:21> <Benjie Jacques - Last Filed: 09/22/16 14:25> Diagnosis at time of Disposition: Hemoptysis Pneumonia Qualifiers: Pneumonia type: due to unspecified organism Laterality: left Lung location: lower lobe of lung Qualified Code(s): J18.1 - Lobar pneumonia, unspecified organism - Referrals
[2016-09-21] MEDS ORDERED: VANCOMYCIN 1,250 MG in DEXTROSE 5%-WATER - 250 ML IVPB ONE (21:07)
[2016-09-21] MEDS ORDERED: LEVOFLOXACIN 500 MG IVPB 100 ML IVPB ONE ×2 (21:08→21:42)
[2016-09-22 03:23] VITALS: BMI 17.5
[2016-09-22] MEDS ORDERED: POLYETHYLENE GLYCOL 3350 119 GM BTL GT PRN (07:00)
[2016-09-22] MEDS ORDERED: ALBUTEROL SO4 0.083% IH SOL 2.5 MG/3 ML VIAL.NEB. NEB PRN (07:00)
[2016-09-22] MEDS ORDERED: ALBUTEROL SO4 6.7 GM HFA INHALER IH PRN (07:00)
[2016-09-22] MEDS ORDERED: traMADol HCL 50 MG TABLET PEG PRN (07:00)
[2016-09-22] MEDS ORDERED: BISACODYL 10 MG SUPP.RECT RC PRN (07:00)
--- NOTE | 2016-09-22 08:31 | HP ---
DATE OF ADMISSION: DATE OF DICTATION: 09/22/2016 HISTORY OF PRESENT ILLNESS: He is a 60-year-old male who presented to the emergency room complaining of coughing up blood of 2-day duration. Patient was in his usual state of health until 2 days ago when he started coughing blood. He claims that he coughed bright-red blood about 1/4 cup at a time 2 to 3 times yesterday as well as today. There was no fever or chills. There was no cough-associated chest pain. There was no nausea, vomiting. Neither did he vomit large amounts of blood and choke or aspirate on it. He has had on and off pneumonia possibly and has been investigated in the past where he had had a right lingular infiltrate likely from aspiration. He had subsequently had a PEG tube placed and repeat CAT scan done yesterday in the hospital shows resolving surrounding pneumonia in the right base but a lingular infiltrate that persists and now cavitary. He denies any night sweats. He has had loss of weight, but that has improved ever since the PEG was placed in. PAST MEDICAL HISTORY: Dystonia and neurogenic bladder, dysphagia. PRESENT MEDICATIONS: Mostly supportive. They include tramadol 50 mg on a p.r.n. basis, Zantac 150 mg twice a day, MiraLAX 17 g daily, metoclopramide 5 mg twice a day, heparin 5000 units twice a day, valium 5 mg 3 times a day, bisacodyl 10 mg on a p.r.n. basis, albuterol inhaler on a p.r.n. basis. ALLERGIES: LATEX, DYE, PENICILLINS, SULFA. SOCIAL HISTORY: He is single. He lives in a senior care. He has no children. Nonsmoker. Denies any alcohol or drug abuse. He is totally disabled. FAMILY HISTORY: Significant for a brother, his mom has had colon cancer. REVIEW OF SYSTEMS: Unremarkable. He denies any chronic headache, dizziness, chest pains, palpitations, abdominal pain, loss of weight, loss of appetite. He has an occasional cough. Due to a neurogenic bladder, a Bagley catheter has been placed. PHYSICAL EXAMINATION: Vital Signs: He has a blood pressure of 134/76, pulse rate of 67, respiratory rate of 18, temperature 98.5. General: He is not pale, nonicteric. Neck: JVD is absent. Thyroid and carotids appear normal. Heart: Regular rhythm. No murmurs. Lungs: Vesicular breathing. It is clear. The right base has a few rales. Abdomen: Benign. It has a PEG tube. Bagley catheter is present. Bowel sounds are heard. Extremities: Have no edema. LABORATORY DATA: He has a white count of 8500 with normal distribution of cells. PT, PTT are normal. A basic metabolic profile is within normal limits. CT scan of the chest reveals a lingular infiltrate, cavitary. ASSESSMENT AND PLAN: 1. Right lower lobe infiltrate in a patient with a history of aspiration, dysphagia, and now on a percutaneous endoscopic gastrostomy tube, now cavitary. It is very likely pneumonia, aspiration. Cavitary lesions could also occur in fungal and staphylococcal pneumonia, but patient appears healthy. He is not having any fever, chills, appears signs of acute infection. Vancomycin, a dose has been given in the emergency room. Would obtain pulmonary evaluation for choice of antibiotic and continued treatment plus or minus bronchoscopy, bronchial lavage. Other possibilities of Nabeel can also produce cavitary lesions, but given other lack of symptoms of nasal complications and nosebleed, etc., it is unlikely. Would check ESR and ANCA. 2. Dystonia. Continue present medications. PRANEETH CALLE M.D. [id number]
--- NOTE | 2016-09-22 09:21 | EKG ---
Test Reason : Blood Pressure : / mmHG Vent. Rate : 067 BPM Atrial Rate : 067 BPM P-R Int : 148 ms QRS Dur : 136 ms QT Int : 406 ms P-R-T Axes : 088 -60 064 degrees QTc Int : 429 ms NORMAL SINUS RHYTHM RIGHT BUNDLE BRANCH BLOCK LEFT ANTERIOR FASCICULAR BLOCK BIFASCICULAR BLOCK ABNORMAL ECG WHEN COMPARED WITH ECG OF 05-AUG-2016 18:02, NO SIGNIFICANT CHANGE WAS FOUND Confirmed by LEANDRA SAMAYOA MD ([id number]) on 09/22/2016 9:20:27 AM Referred By: Confirmed By:LEANDRA SAMAYOA MD
[2016-09-22] MEDS: METOCLOPRAMIDE HCL 5 MG/5 ML UNIT DOSE CUP GT SCH ×2 (09:51→21:07)
[2016-09-22] MEDS: HEPARIN NA (PORCINE) 5,000 UNITS/ML 1ML VIAL SQ SCH ×2 (09:51→21:07)
[2016-09-22] MEDS ORDERED: [UNRECOGNIZED DRUG - OTHER] GT SCH (10:00)
[2016-09-22] MEDS ORDERED: METHENAMINE GT SCH (10:00)
[2016-09-22] MEDS ORDERED: SODIUM SALICYLATE GT SCH (10:00)
[2016-09-22] MEDS ORDERED: POLYETHYLENE GLYCOL 3350 119 GM BTL PO SCH (10:00)
[2016-09-22] MEDS: diazePAM 5 MG TABLET GT SCH ×2 (13:22→21:08)
--- NOTE | 2016-09-22 13:30 | PN ---
KEILA Grace Note Chief Complaint: pt needs spt tube changed - Objective Vital Signs: Vital Signs Temperature 99 F 09/22/16 09:24 Pulse Rate 89 09/22/16 09:24 Respiratory Rate 20 09/22/16 09:24 Blood Pressure 100/71 09/22/16 09:24 O2 Sat by Pulse Oximetry (%) 96 09/22/16 10:12 Labs/Additional Data: INR, PTT INR 1.04 (0.82-1.09) 09/21/16 15:35 Blood Type Blood Type A POSITIVE 09/21/16 15:35 Antibody Screen Negative 09/21/16 15:35 Assessment/Plan will need change of spt in am . please have keila singh at bedside
--- NOTE | 2016-09-22 14:03 | CON.PULM ---
Consult Consult Specialty:: PULMONARY Referred by:: CARLEY Reason for Consultation:: HEMOPTYSIS - History of Present Illness Chief Complaint: COUGHING BLOOD History of Present Illness: 60 y/o male with dystonia, s/p suprapubic catheter, s/p PEG tube presents with c /o 2-3 episodes of hemoptysis . Pt states he had these symptoms once before 6- 12 months ago. He also c/o some chest pain that is reproducible and some burning pain up and down his sternum since having G-tube placed. Chest pain does not radiate and is described as dull. He does complain of some dizziness over the last month and states his BP has been lower than usual over this time and dizziness was worse with moving up from laying to seated position quickly. He denies any N/V/F/C, diarrhea, abd pain, pain with deep inspiration, light- headedness. Patient is well known by our service. 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 (Muscular dystonia since age 21 year) Cardio/Vascular: Yes: HTN Pulmonary: Yes: Asthma, Pneumonia, Sleep Apnea, Other (Cavitary lesion in lung ruled out for TB) Gastrointestinal: Yes: Constipation, GERD, Other (dysphagia) Hepatobiliary: Yes: Other (as noted in medical record.) Renal/: Yes: BPH (s/p thermal prostate procedure), Neurogenic Bladder ( suprapubic tube ), UTI Infectious Disease: Yes: Other (influenza b august 2013) Psych: Yes: Depression Musculoskeletal: Yes: Other (Muscular dystonia) - Past Surgical History Past Surgical History: Yes: Laminectomy (cervical laminectomy with fusion) - Alcohol/Substance Use Hx Alcohol Use: No History of Substance Use: reports: None, Marijuana (years ago. No current use) Date of Last Use: 05/18/78 (estimated) - Smoking History Smoking history: Never smoked Have you smoked in the past 12 months: No Aproximately how many cigarettes per day: 0 - Social History Usual Living Arrangement: Other (Mr. Richard reports that he was born and raised in [place]. He attended several colleges including [employer], [employer], and [employer]. He briefly attended [employer] but discontinued due to financial reasons. 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 In 1986, Mr. Nash was disabled s/p a weightlifting accident that fractured his neck. 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 History of Recent Travel: No Home Medications - Allergies Allergies/Adverse Reactions: Allergies Allergy/AdvReac Type Severity Reaction Status Date / Time iodine Allergy Severe Low Blood Verified 09/21/16 14:45 Pressure kiwi Allergy Intermediate Swelling Verified 09/21/16 14:45 latex Allergy Unknown Swelling Verified 09/22/16 08:56 shellfish derived Allergy Unknown Verified 09/21/16 14:45 ampicillin sodium Allergy Rash Verified 09/21/16 14:45 [From Unasyn] Fish Containing Products Allergy Difficulty Verified 09/21/16 14:45 Breathing Penicillins Allergy Rash Verified 09/21/16 14:45 sulbactam sodium Allergy Rash Verified 09/21/16 14:45 [From Unasyn] Sulfa (Sulfonamide Allergy Hives Verified 09/21/16 14:45 Antibiotics) [Sulfa(Sulfonamide Antibiotics)] - Home Medications Home Medications: Ambulatory Orders Diazepam [Valium] 5 mg GT TID 04/23/14 Albuterol Sulfate [Proair Hfa -] 1 - 2 inh PO QID PRN 04/12/15 Methenamine/Sodium Salicylate [Cystex Plus Tablet] 1 each GT DAILY 04/12/15 Heparin - 5,000 unit SQ BID vial 04/25/16 Albuterol 0.083% Nebulizer Jojo [Ventolin 0.083% Nebulizer Soln -] 1 amp NEB TID PRN 08/05/16 Docusate Sodium [Colace -] 300 mg GT HS 08/05/16 Metoclopramide HCl 5 mg GT BID 08/05/16 Polyethylene Glycol 3350 [Miralax 119 gm Btl -] 17 gm GT DAILY PRN 08/05/16 Ranitidine [Zantac -] 150 mg GT BID 08/05/16 Tramadol HCl 50 mg GT Q6H PRN 08/05/16 Bisacodyl [Biscolax] 10 mg RC PRN 09/21/16 Polyethylene Glycol 3350 [Miralax (For Daily Use) -] 17 gm PO DAILY 09/21/16 Family Disease History - Family Disease History Family Disease History: Diabetes: Father (mild cognitive decline), Heart Disease : Father, CA: Mother (, colon cancer), Other: Father Review of Systems - Review of Systems Constitutional: denies: Fever Eyes: denies: Blurred Vision HENT: reports: Difficult Swallowing Neck: denies: Decreased ROM Cardiovascular: reports: Chest Pain Respiratory: reports: Hemoptysis. denies: Wheezing Gastrointestinal: denies: Abdominal Pain Genitourinary: reports: No Symptoms, Burning Physical Exam Vital Sings: Vital Signs Temperature 99 F 09/22/16 09:24 Pulse Rate 89 09/22/16 09:24 Respiratory Rate 20 09/22/16 09:24 Blood Pressure 100/71 09/22/16 09:24 O2 Sat by Pulse Oximetry (%) 96 09/22/16 10:12 Constitutional: Yes: Calm Eyes: Yes: EOM Intact HENT: Yes: Normocephalic Neck: Yes: Trachea Midline Cardiovascular: Yes: Regular Rate and Rhythm Respiratory: Yes: CTA Bilaterally Gastrointestinal: Yes: Normal Bowel Sounds, Other (PEG) Renal/: Yes: Other (SUPRA-PUBIC CATHETER) Edema: No Integumentary: Yes: WNL Neurological: Yes: Other (DYSTONIA) Labs: ALL REVIEWED Imaging - Results Cat Scan: Image Reviewed Problem List - Problems (1) Hemoptysis Code(s): R04.2 - HEMOPTYSIS (2) Pneumonia Code(s): J18.9 - PNEUMONIA, UNSPECIFIED ORGANISM Qualifiers: Pneumonia type: due to unspecified organism Laterality: left Lung location: lower lobe of lung Qualified Code(s): J18.1 - Lobar pneumonia, unspecified organism (3) COPD (chronic obstructive pulmonary disease) Code(s): J44.9 - CHRONIC OBSTRUCTIVE PULMONARY DISEASE, UNSPECIFIED Qualifiers : Chronic bronchitis type: unspecified (4) Cavitary lesion of lung Code(s): J98.4 - OTHER DISORDERS OF LUNG Assessment/Plan REVIEW OF ALL PREVIOUS CT CHEST IMAGING STUDIES REVEALS CLEARING OF PREVIOUS LARGE CONSOLIDATIVE PROCESSES WITH A RESIDUAL LINGULAR CAVITARY INFILTRATE/ WHICH LIKELY IS THE CAUSE OF HIS HEMOPTYSIS WOULD PROCEED WITH CHEST PT/BRONCHODILATORS AND ANTIBIOTICS AT THIS POINT FOB NOT INDICATED/WILL REQUEST SPUTUM CULTURE WILL FOLLOW THANK YOU Bryan GAYTAN MD
--- NOTE | 2016-09-22 16:14 | CONS ---
DATE OF CONSULTATION: DATE OF DICTATION: 09/22/2016 HISTORY OF PRESENT ILLNESS: This is a 60-year-old male admitted via the emergency room with history of hematemesis as well as chest pain. The patient does have a history of dystonia and neurogenic bladder. He is status post a suprapubic catheter insertion for recurrent retention. He also has a G tube for parenteral nutrition. The patient states that he has been coughing up blood for the past week. This morning, at 4 a.m. he woke up and coughed up 4 to 6 tablespoons of bright red blood. He had 3 more episodes that morning. The patient states that he had the same thing about 1 year ago. He also complains of chest pain and burning when he lies down. He had a G tube placed for esophageal achalasia. He also complains of vertigo. He states that he was diagnosed with low blood pressure as well as orthostatic hypotension. He denies nausea, vomiting, fever, chills or diarrhea. PAST MEDICAL HISTORY: Includes asthma, chronic obstructive pulmonary disease, gastroesophageal reflux disease, a flaccid neurogenic bladder with overflow incontinence requiring a suprapubic tube. He is also hypertensive. He does have history of anxiety. He has undergone a cervical diskectomy with fusion. He denies any other surgeries. HABITS: He denies the use of alcohol or tobacco. ALLERGIES: He has multiple allergies, including IODINE, KIWI, SHELLFISH, ANY FISH-CONTAINING PRODUCT, AMPICILLIN, PENICILLIN, SULBACTAM, INCLUDING UNASYN, SULFA INCLUDING BACTRIM AND KEPPRA. MEDICATIONS: He is on Valium 5 mg 3 times a day, ProAir inhaler, tablets as a urinary antiseptic, albuterol, Colace, Reglan, Zantac, tramadol and MiraLAX. PHYSICAL EXAMINATION: Vital signs: Temperature 98.9, blood pressure 93/72, pulse oximetry 98, respirations 18 and regular. Abdomen: Soft. There was no CVA tenderness. Genitalia: Atraumatic. A suprapubic tube is in place. The wound has hemorrhagic granulation tissue with some bleeding. The Bagley catheter is patent but appears to be partially blocked. DIAGNOSTIC STUDIES: Blood workup revealed BUN 21 and creatinine 0.6, random glucose 117. Liver enzymes were all normal. His blood type is A positive. His anion gap was low at 6. INR 1.04. White count 8.5, hemoglobin 12.8, hematocrit 38, platelet count 198. ASSESSMENT: The patient is presently diagnosed with dystonia and neurogenic bladder, as well as dysphagia. Chest x-ray revealed a right lower lobe infiltrate. The patient does have history of recurrent aspiration as well as dysphagia. RECOMMENDATIONS: Recommend changing his suprapubic catheter and putting in a larger catheter after dilating his suprapubic tract. Would also recommend a renal and pelvic ultrasound to rule out upper tract pathology in a patient this age. We should get a PSA to rule out any prostate neoplasm. I will follow with you. Walt [id number]
[2016-09-22] MEDS: cefTRIAXone 1 GM/50 ML BAG (PRE-DOCKED) IVPB SCH (17:13)
[2016-09-23] MEDS: diazePAM 5 MG TABLET GT SCH ×3 (05:53→21:21)
[2016-09-23] MEDS: METOCLOPRAMIDE HCL 5 MG/5 ML UNIT DOSE CUP GT SCH ×2 (10:35→21:21)
[2016-09-23] MEDS: HEPARIN NA (PORCINE) 5,000 UNITS/ML 1ML VIAL SQ SCH ×2 (10:36→21:21)
--- NOTE | 2016-09-23 12:06 | PN ---
Progress Note (short form) - Note Progress Note: PULMONARY COUGHING THICK BROWN MUCOUS REMAINS AFEBRILE ANICTERIC CLEAR B/L BREATH SOUNDS S1S2 BS+ NO EDEMA LABS/MEDS/IMAGING/REVIEWED - Problems (1) Hemoptysis Code(s): R04.2 - HEMOPTYSIS RESOLVED (2) Pneumonia Code(s): J18.9 - PNEUMONIA, UNSPECIFIED ORGANISM Qualifiers: Pneumonia type: due to unspecified organism Laterality: left Lung location: lower lobe of lung Qualified Code(s): J18.1 - Lobar pneumonia, unspecified organism (3) COPD (chronic obstructive pulmonary disease) Code(s): J44.9 - CHRONIC OBSTRUCTIVE PULMONARY DISEASE, UNSPECIFIED Qualifiers : Chronic bronchitis type: unspecified (4) Cavitary lesion of lung Code(s): J98.4 - OTHER DISORDERS OF LUNG CONTINUE: ANTIBIOTICS/BRONCHODILATORS/O2 PRN CHECK SPUTUM CULTURE/GRAM STAIN Bryan GAYTAN MD Problem List - Problems (1) Hemoptysis Code(s): R04.2 - HEMOPTYSIS (2) Pneumonia Code(s): J18.9 - PNEUMONIA, UNSPECIFIED ORGANISM Qualifiers: Pneumonia type: due to unspecified organism Laterality: left Lung location: lower lobe of lung Qualified Code(s): J18.1 - Lobar pneumonia, unspecified organism (3) COPD (chronic obstructive pulmonary disease) Code(s): J44.9 - CHRONIC OBSTRUCTIVE PULMONARY DISEASE, UNSPECIFIED Qualifiers : Chronic bronchitis type: unspecified (4) Cavitary lesion of lung Code(s): J98.4 - OTHER DISORDERS OF LUNG
[2016-09-23] MEDS: cefTRIAXone 1 GM/50 ML BAG (PRE-DOCKED) IVPB SCH ×2 (13:12→13:15)
--- NOTE | 2016-09-23 15:29 | PN ---
Progress Note (short form) - Note Progress Note: The blood is less but still has sputum No fever No chest pain' O/E Vital Signs Period Temp Pulse Resp BP Sys/Marroquin Pulse Ox Last 24 Hr 98.2 F-99.6 F 60-73 18-20 93-123/50-66 96 Heart regular Lungs clear Abd soft Ext no edema Current Medications Albuterol Sulfate (Ventolin 0.083% Nebulizer Soln -) 1 amp NEB TID PRN PRN Reason: SHORT OF BREATH/WHEEZING Bisacodyl (Dulcolax Suppository -) 10 mg RC DAILY PRN Ceftriaxone Sodium (Rocephin 1gm Ivpb (Pre-Docked)) 1 gm IVPB DAILY [facility] Last Admin: 09/23/16 13:15 Dose: 1 gm Diazepam (Valium -) 5 mg GT BID [facility] Last Admin: 09/23/16 11:06 Dose: 5 mg Heparin Sodium (Porcine) (Heparin -) 5,000 unit SQ BID [facility] Last Admin: 09/23/16 10:36 Dose: 5,000 unit Metoclopramide HCl (Reglan Oral Solution -) 5 mg GT BID [facility] Last Admin: 09/23/16 10:35 Dose: 5 mg Polyethylene Glycol (Miralax (For Daily Use) -) 17 gm GT DAILY PRN PRN Reason: CONSTIPATION Tramadol HCl (Ultram -) 50 mg PEG Q6H PRN PRN Reason: PAIN Laboratory Results - last 24 hr 09/23/16 06:20 ESR 25 H A&P 1.Hemoptysis I likely due to Pneumonia. ANCA pnding 2.Pneumonia Pulmonary noted, cont ABX sputum cultures pnd 3.Dystonia Cont present care
[2016-09-24] MEDS: METOCLOPRAMIDE HCL 5 MG/5 ML UNIT DOSE CUP GT SCH ×2 (09:34→21:36)
[2016-09-24] MEDS: diazePAM 5 MG TABLET GT SCH ×2 (09:34→21:37)
[2016-09-24] MEDS: HEPARIN NA (PORCINE) 5,000 UNITS/ML 1ML VIAL SQ SCH ×2 (09:34→21:36)
[2016-09-24] MEDS: cefTRIAXone 1 GM/50 ML BAG (PRE-DOCKED) IVPB SCH (09:34)
--- NOTE | 2016-09-24 12:41 | PN ---
Progress Note (short form) - Note Progress Note: PULMONARY States hemoptysis clearing, now with clear sputum. No fevers or chills. Last Vital Signs Temp Pulse Resp BP Pulse Ox 98.1 F 70 18 95/57 96 09/24/16 09:44 09/24/16 09:44 09/24/16 09:44 09/24/16 09:44 09/23/16 21:00 Gen: NAD at rest Heart: RRR Lung: decreased breath sounds at the bases Abd: soft, nontender Ext: no edema CBC, BMP 09/21/16 15:35 09/21/16 15:35 Active Medications Albuterol Sulfate (Ventolin 0.083% Nebulizer Soln -) 1 amp NEB TID PRN PRN Reason: SHORT OF BREATH/WHEEZING Bisacodyl (Dulcolax Suppository -) 10 mg RC DAILY PRN Last Admin: 09/24/16 09:34 Dose: 10 mg Ceftriaxone Sodium (Rocephin 1gm Ivpb (Pre-Docked)) 1 gm IVPB DAILY [facility] Last Admin: 09/24/16 09:34 Dose: 1 gm Diazepam (Valium -) 5 mg GT BID [facility] Last Admin: 09/24/16 09:34 Dose: 5 mg Heparin Sodium (Porcine) (Heparin -) 5,000 unit SQ BID [facility] Last Admin: 09/24/16 09:34 Dose: 5,000 unit Metoclopramide HCl (Reglan Oral Solution -) 5 mg GT BID [facility] Last Admin: 09/24/16 09:34 Dose: 5 mg Polyethylene Glycol (Miralax (For Daily Use) -) 17 gm GT DAILY PRN PRN Reason: CONSTIPATION Tramadol HCl (Ultram -) 50 mg PEG Q6H PRN PRN Reason: PAIN A/P Pneumonia Hemoptysis resolving Dystonia - continue antibiotics - f/u sputum culture - O2 as needed - enteral feeds - aspiration precautions - DVT prophylaxis - pt requesting suprapubic catheter change
--- NOTE | 2016-09-24 13:48 | PN ---
Progress Note, Physician Chief Complaint: Mr Nash says he is feeling better. Hemoptysis has resolved. No cp, sob, n/ v. - Current Medication List Current Medications: Active Medications Albuterol Sulfate (Ventolin 0.083% Nebulizer Soln -) 1 amp NEB TID PRN PRN Reason: SHORT OF BREATH/WHEEZING Bisacodyl (Dulcolax Suppository -) 10 mg RC DAILY PRN Last Admin: 09/24/16 09:34 Dose: 10 mg Ceftriaxone Sodium (Rocephin 1gm Ivpb (Pre-Docked)) 1 gm IVPB DAILY [facility] Last Admin: 09/24/16 09:34 Dose: 1 gm Diazepam (Valium -) 5 mg GT BID [facility] Last Admin: 09/24/16 09:34 Dose: 5 mg Heparin Sodium (Porcine) (Heparin -) 5,000 unit SQ BID [facility] Last Admin: 09/24/16 09:34 Dose: 5,000 unit Metoclopramide HCl (Reglan Oral Solution -) 5 mg GT BID [facility] Last Admin: 09/24/16 09:34 Dose: 5 mg Polyethylene Glycol (Miralax (For Daily Use) -) 17 gm GT DAILY PRN PRN Reason: CONSTIPATION Tramadol HCl (Ultram -) 50 mg PEG Q6H PRN PRN Reason: PAIN - Objective Vital Signs: Vital Signs Temperature 98.1 F 09/24/16 09:44 Pulse Rate 70 09/24/16 09:44 Respiratory Rate 18 09/24/16 09:44 Blood Pressure 95/57 09/24/16 09:44 O2 Sat by Pulse Oximetry (%) 96 09/23/16 21:00 Constitutional: Yes: No Distress, Calm, Thin Cardiovascular: Yes: Regular Rate and Rhythm. No: Gallop, Murmur, Rub Respiratory: Yes: Regular, Rhonchi. No: Rales, Wheezes Gastrointestinal: Yes: Normal Bowel Sounds, Soft. No: Distention, Tenderness Extremities: Yes: WNL Edema: No Labs: INR, PTT INR 1.04 (0.82-1.09) 09/21/16 15:35 Problem List - Problems (1) Hemoptysis Assessment/Plan: -secondary to pneumonia -appreciate pulmonary assistance, case discussed -resolving Code(s): R04.2 - HEMOPTYSIS (2) Pneumonia Assessment/Plan: -continue rocephin Code(s): J18.9 - PNEUMONIA, UNSPECIFIED ORGANISM Qualifiers: Pneumonia type: due to unspecified organism Laterality: left Lung location: lower lobe of lung Qualified Code(s): J18.1 - Lobar pneumonia, unspecified organism (3) COPD (chronic obstructive pulmonary disease) Assessment/Plan: -not in exacerbation -continue albuterol -pulmonary following Code(s): J44.9 - CHRONIC OBSTRUCTIVE PULMONARY DISEASE, UNSPECIFIED Qualifiers : Chronic bronchitis type: unspecified (4) Dysphagia Assessment/Plan: -PEG tube placed with tube feeds Code(s): R13.10 - DYSPHAGIA, UNSPECIFIED (5) Dystonia Assessment/Plan: -continue home regimen Code(s): G24.9 - DYSTONIA, UNSPECIFIED (6) Suprapubic catheter Assessment/Plan: -urology following -planning for exchange Code(s): Z93.59 - OTHER CYSTOSTOMY STATUS
[2016-09-25 08:53] LABS: BASOPHIL 0.7 % (0-2.0); EOSINOPHIL 5.2 % (0-4.5); MCH 33.6 pg (25.7-33.7); MCHC 34.1 g/dl (32.0-35.9); MEAN CELL VOLUME 98.7 fl (80-96); MEAN PLT VOLUME 8.9 fl (7.5-11.1); NEUTROPHILS 59.3 % (42.8-82.8); PLATELET COUNT 200 K/MM3 (134-434); RDW 13.3 % (11.9-15.9); WHITE BLOOD COUNT 5.7 K/mm3 (4.0-10.0)
[2016-09-25 09:20] LABS: CALCIUM 8.8 mg/dL (8.5-10.1); MAGNESIUM 2.5 mg/dL (1.8-2.4)
[2016-09-25 09:23] LABS: COCKROFT - GAULT 104.4; CREATININE 0.5 mg/dL (0.7-1.3); PHOSPHOROUS 3.9 mg/dL (2.5-4.9)
[2016-09-25] MEDS: HEPARIN NA (PORCINE) 5,000 UNITS/ML 1ML VIAL SQ SCH ×2 (09:40→21:27)
[2016-09-25] MEDS: diazePAM 5 MG TABLET GT SCH ×2 (09:40→21:27)
[2016-09-25] MEDS: METOCLOPRAMIDE HCL 5 MG/5 ML UNIT DOSE CUP GT SCH ×2 (09:41→21:27)
[2016-09-25] MEDS: cefTRIAXone 1 GM/50 ML BAG (PRE-DOCKED) IVPB SCH (09:41)
--- NOTE | 2016-09-25 11:39 | PN ---
Progress Note (short form) - Note Progress Note: PULMONARY States hemoptysis clearing, reports small speck of red. No fevers or chills.. Last Vital Signs Temp Pulse Resp BP Pulse Ox 97.7 F 58 L 20 102/59 96 09/25/16 09:00 09/25/16 09:00 09/25/16 09:00 09/25/16 09:00 09/24/16 21:00 Gen: NAD at rest Heart: RRR Lung: decreased breath sounds at the bases Abd: soft, nontender Ext: no edema CBC, BMP 09/25/16 08:05 09/25/16 08:05 Active Medications Albuterol Sulfate (Ventolin 0.083% Nebulizer Soln -) 1 amp NEB TID PRN PRN Reason: SHORT OF BREATH/WHEEZING Bisacodyl (Dulcolax Suppository -) 10 mg RC DAILY PRN Last Admin: 09/24/16 09:34 Dose: 10 mg Ceftriaxone Sodium (Rocephin 1gm Ivpb (Pre-Docked)) 1 gm IVPB DAILY [facility] Last Admin: 09/25/16 09:41 Dose: 1 gm Diazepam (Valium -) 5 mg GT BID [facility] Last Admin: 09/25/16 09:40 Dose: 5 mg Heparin Sodium (Porcine) (Heparin -) 5,000 unit SQ BID [facility] Last Admin: 09/25/16 09:40 Dose: 5,000 unit Metoclopramide HCl (Reglan Oral Solution -) 5 mg GT BID [facility] Last Admin: 09/25/16 09:41 Dose: 5 mg Polyethylene Glycol (Miralax (For Daily Use) -) 17 gm GT DAILY PRN PRN Reason: CONSTIPATION Tramadol HCl (Ultram -) 50 mg PEG Q6H PRN PRN Reason: PAIN A/P Pneumonia Hemoptysis resolving Dystonia - continue antibiotics - f/u sputum culture - O2 as needed - enteral feeds - aspiration precautions - DVT prophylaxis - pt requesting suprapubic catheter change
--- NOTE | 2016-09-25 14:14 | PN ---
Progress Note, Physician Chief Complaint: Mr Nash is asking for miralax. Also asking for suprapubic catheter to be changed. Otherwise is doing well. No longer having hemoptysis. Denies cp, sob, n /v. - Current Medication List Current Medications: Active Medications Albuterol Sulfate (Ventolin 0.083% Nebulizer Soln -) 1 amp NEB TID PRN PRN Reason: SHORT OF BREATH/WHEEZING Bisacodyl (Dulcolax Suppository -) 10 mg RC DAILY PRN Last Admin: 09/24/16 09:34 Dose: 10 mg Ceftriaxone Sodium (Rocephin 1gm Ivpb (Pre-Docked)) 1 gm IVPB DAILY [facility] Last Admin: 09/25/16 09:41 Dose: 1 gm Diazepam (Valium -) 5 mg GT BID [facility] Last Admin: 09/25/16 09:40 Dose: 5 mg Heparin Sodium (Porcine) (Heparin -) 5,000 unit SQ BID [facility] Last Admin: 09/25/16 09:40 Dose: 5,000 unit Metoclopramide HCl (Reglan Oral Solution -) 5 mg GT BID [facility] Last Admin: 09/25/16 09:41 Dose: 5 mg Polyethylene Glycol (Miralax (For Daily Use) -) 17 gm GT BID [facility] Tramadol HCl (Ultram -) 50 mg PEG Q6H PRN PRN Reason: PAIN - Objective Vital Signs: Vital Signs Temperature 97.7 F 09/25/16 09:00 Pulse Rate 58 L 09/25/16 09:00 Respiratory Rate 20 09/25/16 09:00 Blood Pressure 102/59 09/25/16 09:00 O2 Sat by Pulse Oximetry (%) 95 09/25/16 09:00 Constitutional: Yes: No Distress, Calm, Thin Cardiovascular: Yes: Regular Rate and Rhythm. No: Gallop, Murmur, Rub Respiratory: Yes: Regular, CTA Bilaterally. No: Rales, Rhonchi, Wheezes Gastrointestinal: Yes: Normal Bowel Sounds, Soft. No: Distention, Tenderness Extremities: Yes: WNL Edema: No Labs: CBC, BMP 09/25/16 08:05 09/25/16 08:05 INR, PTT INR 1.04 (0.82-1.09) 09/21/16 15:35 Problem List - Problems (1) Hemoptysis Code(s): R04.2 - HEMOPTYSIS (2) Pneumonia Code(s): J18.9 - PNEUMONIA, UNSPECIFIED ORGANISM Qualifiers: Pneumonia type: due to unspecified organism Laterality: left Lung location: lower lobe of lung Qualified Code(s): J18.1 - Lobar pneumonia, unspecified organism (3) COPD (chronic obstructive pulmonary disease) Code(s): J44.9 - CHRONIC OBSTRUCTIVE PULMONARY DISEASE, UNSPECIFIED Qualifiers : Chronic bronchitis type: unspecified (4) Dysphagia Code(s): R13.10 - DYSPHAGIA, UNSPECIFIED (5) Dystonia Code(s): G24.9 - DYSTONIA, UNSPECIFIED (6) Suprapubic catheter Code(s): Z93.59 - OTHER CYSTOSTOMY STATUS Assessment/Plan (1) Hemoptysis Assessment/Plan: -secondary to pneumonia -appreciate pulmonary assistance, case discussed -resolving Code(s): R04.2 - HEMOPTYSIS (2) Pneumonia Assessment/Plan: -continue rocephin day 4 Code(s): J18.9 - PNEUMONIA, UNSPECIFIED ORGANISM Qualifiers: Pneumonia type: due to unspecified organism Laterality: left Lung location: lower lobe of lung Qualified Code(s): J18.1 - Lobar pneumonia, unspecified organism (3) COPD (chronic obstructive pulmonary disease) Assessment/Plan: -not in exacerbation -continue albuterol -pulmonary following Code(s): J44.9 - CHRONIC OBSTRUCTIVE PULMONARY DISEASE, UNSPECIFIED Qualifiers : Chronic bronchitis type: unspecified (4) Dysphagia Assessment/Plan: -PEG tube placed with tube feeds Code(s): R13.10 - DYSPHAGIA, UNSPECIFIED (5) Dystonia Assessment/Plan: -continue home regimen Code(s): G24.9 - DYSTONIA, UNSPECIFIED (6) Suprapubic catheter Assessment/Plan: -urology following -exchange per urology Code(s): Z93.59 - OTHER CYSTOSTOMY STATUS
--- NOTE | 2016-09-25 16:54 | CON.GU ---
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 (Muscular dystonia since age 21 year) Cardio/Vascular: Yes: HTN Pulmonary: Yes: Asthma, Pneumonia, Sleep Apnea, Other (Cavitary lesion in lung ruled out for TB) Gastrointestinal: Yes: Constipation, GERD, Other (dysphagia) Hepatobiliary: Yes: Other (as noted in medical record.) Renal/: Yes: BPH (s/p thermal prostate procedure), Neurogenic Bladder ( suprapubic tube ), UTI Infectious Disease: Yes: Other (influenza b august 2013) Psych: Yes: Depression Musculoskeletal: Yes: Other (Muscular dystonia) - Past Surgical History Past Surgical History: Yes: Laminectomy (cervical laminectomy with fusion) - Alcohol/Substance Use Hx Alcohol Use: No History of Substance Use: reports: None, Marijuana (years ago. No current use) Date of Last Use: 05/18/78 (estimated) - Smoking History Smoking history: Never smoked Have you smoked in the past 12 months: No Aproximately how many cigarettes per day: 0 - Social History Usual Living Arrangement: Other (Mr. Richard reports that he was born and raised in [place]. He attended several colleges including [employer], [employer], and [employer]. He briefly attended [employer] but discontinued due to financial reasons. 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 In 1986, Mr. Nash was disabled s/p a weightlifting accident that fractured his neck. 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 History of Recent Travel: No Home Medications - Allergies Allergies/Adverse Reactions: Allergies Allergy/AdvReac Type Severity Reaction Status Date / Time iodine Allergy Severe Low Blood Verified 09/21/16 14:45 Pressure kiwi Allergy Intermediate Swelling Verified 09/21/16 14:45 latex Allergy Unknown Swelling Verified 09/22/16 08:56 shellfish derived Allergy Unknown Verified 09/21/16 14:45 ampicillin sodium Allergy Rash Verified 09/21/16 14:45 [From Unasyn] Fish Containing Products Allergy Difficulty Verified 09/21/16 14:45 Breathing Penicillins Allergy Rash Verified 09/21/16 14:45 sulbactam sodium Allergy Rash Verified 09/21/16 14:45 [From Unasyn] Sulfa (Sulfonamide Allergy Hives Verified 09/21/16 14:45 Antibiotics) [Sulfa(Sulfonamide Antibiotics)] - Home Medications Home Medications: Ambulatory Orders Diazepam [Valium] 5 mg GT TID 04/23/14 Albuterol Sulfate [Proair Hfa -] 1 - 2 inh PO QID PRN 04/12/15 Methenamine/Sodium Salicylate [Cystex Plus Tablet] 1 each GT DAILY 04/12/15 Heparin - 5,000 unit SQ BID vial 04/25/16 Albuterol 0.083% Nebulizer Jojo [Ventolin 0.083% Nebulizer Soln -] 1 amp NEB TID PRN 08/05/16 Docusate Sodium [Colace -] 300 mg GT HS 08/05/16 Metoclopramide HCl 5 mg GT BID 08/05/16 Polyethylene Glycol 3350 [Miralax 119 gm Btl -] 17 gm GT DAILY PRN 08/05/16 Ranitidine [Zantac -] 150 mg GT BID 08/05/16 Tramadol HCl 50 mg GT Q6H PRN 08/05/16 Bisacodyl [Biscolax] 10 mg RC PRN 09/21/16 Polyethylene Glycol 3350 [Miralax (For Daily Use) -] 17 gm PO DAILY 09/21/16 Family Disease History - Family Disease History Family Disease History: Diabetes: Father (mild cognitive decline), Heart Disease : Father, CA: Mother (, colon cancer), Other: Father Physical Exam- Vital Signs: Vital Signs Temperature 98.4 F 09/25/16 14:30 Pulse Rate 73 09/25/16 14:30 Respiratory Rate 22 09/25/16 14:30 Blood Pressure 107/51 09/25/16 14:30 O2 Sat by Pulse Oximetry (%) 95 09/25/16 09:00 Labs: CBC, BMP 09/25/16 08:05 09/25/16 08:05 Assessment/Plan 60 year old with indwelling Suprapubic catheter. Was seen today. SP tube was changed to 18F tube and was connected to leg bag as requested by patient. The catheter was draining well.
[2016-09-25] MEDS: POLYETHYLENE GLYCOL 3350 119 GM BTL GT SCH (21:27)
[2016-09-26 00:06] LABS: C-ANCA <1:20 titer (Neg:<1:20); MYELOPEROXIDASE ANTIBODY <9.0 U/mL (0.0-9.0); P-ANCA <1:20 titer (Neg:<1:20); PROTEINASE-3 ANTIBODY <3.5 U/mL (0.0-3.5)
[2016-09-26 08:29] LABS: BASOPHIL 0.8 % (0-2.0); EOSINOPHIL 5.4 % (0-4.5); MCH 33.5 pg (25.7-33.7); MCHC 33.7 g/dl (32.0-35.9); MEAN CELL VOLUME 99.5 fl (80-96); MEAN PLT VOLUME 8.8 fl (7.5-11.1); PLATELET COUNT 206 K/MM3 (134-434); RDW 13.2 % (11.9-15.9); WHITE BLOOD COUNT 5.3 K/mm3 (4.0-10.0)
[2016-09-26] MEDS: diazePAM 5 MG TABLET GT SCH ×2 (09:01→21:36)
[2016-09-26] MEDS: METOCLOPRAMIDE HCL 5 MG/5 ML UNIT DOSE CUP GT SCH ×2 (09:01→21:36)
[2016-09-26] MEDS: HEPARIN NA (PORCINE) 5,000 UNITS/ML 1ML VIAL SQ SCH ×2 (09:02→21:36)
[2016-09-26] MEDS: cefTRIAXone 1 GM/50 ML BAG (PRE-DOCKED) IVPB SCH (09:02)
[2016-09-26] MEDS: POLYETHYLENE GLYCOL 3350 119 GM BTL GT SCH ×2 (09:09→21:36)
[2016-09-26 09:11] LABS: CALCIUM 8.9 mg/dL (8.5-10.1); COCKROFT - GAULT 104.4; CREATININE 0.5 mg/dL (0.7-1.3); MAGNESIUM 2.5 mg/dL (1.8-2.4); PHOSPHOROUS 3.8 mg/dL (2.5-4.9)
--- NOTE | 2016-09-26 13:11 | PN ---
Progress Note (short form) - Note Progress Note: PULMONARY DAY # 5 IV ABS MINIMAL COUGH/OCCASIONAL BLOOD STREAKED REMAINS AFEBRILE ANICTERIC CLEAR B/L BREATH SOUNDS S1S2 BS+ NO EDEMA LABS/MEDS/IMAGING/MICRO/REVIEWED - Problems (1) Hemoptysis Code(s): R04.2 - HEMOPTYSIS RESOLVED (2) Pneumonia Code(s): J18.9 - PNEUMONIA, UNSPECIFIED ORGANISM Qualifiers: Pneumonia type: due to unspecified organism Laterality: left Lung location: lower lobe of lung Qualified Code(s): J18.1 - Lobar pneumonia, unspecified organism (3) COPD (chronic obstructive pulmonary disease) Code(s): J44.9 - CHRONIC OBSTRUCTIVE PULMONARY DISEASE, UNSPECIFIED Qualifiers : Chronic bronchitis type: unspecified (4) Cavitary lesion of lung Code(s): J98.4 - OTHER DISORDERS OF LUNG CONTINUE: ANTIBIOTICS COMPLETE 7 DAYS /BRONCHODILATORS/O2 PRN Bryan GAYTAN MD Problem List - Problems (1) Hemoptysis Code(s): R04.2 - HEMOPTYSIS (2) Pneumonia Code(s): J18.9 - PNEUMONIA, UNSPECIFIED ORGANISM Qualifiers: Pneumonia type: due to unspecified organism Laterality: left Lung location: lower lobe of lung Qualified Code(s): J18.1 - Lobar pneumonia, unspecified organism (3) COPD (chronic obstructive pulmonary disease) Code(s): J44.9 - CHRONIC OBSTRUCTIVE PULMONARY DISEASE, UNSPECIFIED Qualifiers : Chronic bronchitis type: unspecified (4) Cavitary lesion of lung Code(s): J98.4 - OTHER DISORDERS OF LUNG
--- NOTE | 2016-09-26 15:30 | PN ---
Progress Note, Physician Chief Complaint: Mr Nash says he had a small amount of heartburn yesterday but resolved. No longer having hemoptysis. Denies cp, sob, n/v. - Current Medication List Current Medications: Active Medications Albuterol Sulfate (Ventolin 0.083% Nebulizer Soln -) 1 amp NEB TID PRN PRN Reason: SHORT OF BREATH/WHEEZING Bisacodyl (Dulcolax Suppository -) 10 mg RC DAILY [facility] Last Admin: 09/24/16 09:34 Dose: 10 mg Ceftriaxone Sodium (Rocephin 1gm Ivpb (Pre-Docked)) 1 gm IVPB DAILY [facility] Last Admin: 09/26/16 09:02 Dose: 1 gm Diazepam (Valium -) 5 mg GT BID [facility] Last Admin: 09/26/16 09:01 Dose: 5 mg Heparin Sodium (Porcine) (Heparin -) 5,000 unit SQ BID [facility] Last Admin: 09/26/16 09:02 Dose: 5,000 unit Metoclopramide HCl (Reglan Oral Solution -) 5 mg GT BID [facility] Last Admin: 09/26/16 09:01 Dose: 5 mg Polyethylene Glycol (Miralax (For Daily Use) -) 17 gm GT BID [facility] Last Admin: 09/26/16 09:09 Dose: Not Given Tramadol HCl (Ultram -) 50 mg PEG Q6H PRN PRN Reason: PAIN - Objective Vital Signs: Vital Signs Temperature 98.4 F 09/26/16 14:46 Pulse Rate 62 09/26/16 14:46 Respiratory Rate 20 09/26/16 14:46 Blood Pressure 98/52 09/26/16 14:46 O2 Sat by Pulse Oximetry (%) 96 09/26/16 09:00 Constitutional: Yes: No Distress, Calm, Thin Cardiovascular: Yes: Regular Rate and Rhythm. No: Gallop, Murmur, Rub Respiratory: Yes: Regular, CTA Bilaterally. No: Rales, Rhonchi, Wheezes Gastrointestinal: Yes: Normal Bowel Sounds, Soft. No: Distention, Tenderness Extremities: Yes: WNL Edema: No Labs: CBC, BMP 09/26/16 07:30 09/26/16 07:30 INR, PTT INR 1.04 (0.82-1.09) 09/21/16 15:35 Problem List - Problems (1) Hemoptysis Code(s): R04.2 - HEMOPTYSIS (2) Pneumonia Code(s): J18.9 - PNEUMONIA, UNSPECIFIED ORGANISM Qualifiers: Pneumonia type: due to unspecified organism Laterality: left Lung location: lower lobe of lung Qualified Code(s): J18.1 - Lobar pneumonia, unspecified organism (3) COPD (chronic obstructive pulmonary disease) Code(s): J44.9 - CHRONIC OBSTRUCTIVE PULMONARY DISEASE, UNSPECIFIED Qualifiers : Chronic bronchitis type: unspecified (4) Dysphagia Code(s): R13.10 - DYSPHAGIA, UNSPECIFIED (5) Dystonia Code(s): G24.9 - DYSTONIA, UNSPECIFIED (6) Suprapubic catheter Code(s): Z93.59 - OTHER CYSTOSTOMY STATUS (7) GERD (gastroesophageal reflux disease) Code(s): K21.9 - GASTRO-ESOPHAGEAL REFLUX DISEASE WITHOUT ESOPHAGITIS Assessment/Plan (1) Hemoptysis Assessment/Plan: -secondary to pneumonia -appreciate pulmonary assistance, case discussed -resolving Code(s): R04.2 - HEMOPTYSIS (2) Pneumonia Assessment/Plan: -continue rocephin day 5/7 Code(s): J18.9 - PNEUMONIA, UNSPECIFIED ORGANISM Qualifiers: Pneumonia type: due to unspecified organism Laterality: left Lung location: lower lobe of lung Qualified Code(s): J18.1 - Lobar pneumonia, unspecified organism (3) COPD (chronic obstructive pulmonary disease) Assessment/Plan: -not in exacerbation -continue albuterol -pulmonary following Code(s): J44.9 - CHRONIC OBSTRUCTIVE PULMONARY DISEASE, UNSPECIFIED Qualifiers : Chronic bronchitis type: unspecified (4) Dysphagia Assessment/Plan: -PEG tube placed with tube feeds Code(s): R13.10 - DYSPHAGIA, UNSPECIFIED (5) Dystonia Assessment/Plan: -continue home regimen Code(s): G24.9 - DYSTONIA, UNSPECIFIED (6) Suprapubic catheter Assessment/Plan: -s/p exchange Code(s): Z93.59 - OTHER CYSTOSTOMY STATUS (7) GERD -will add protonix while here
[2016-09-27 07:03] LABS: BASOPHIL 0.4 % (0-2.0); EOSINOPHIL 6.2 % (0-4.5); MCH 33.9 pg (25.7-33.7); MEAN CELL VOLUME 99.6 fl (80-96); MEAN PLT VOLUME 8.6 fl (7.5-11.1); NEUTROPHILS 57.5 % (42.8-82.8); PLATELET COUNT 202 K/MM3 (134-434); RDW 13.3 % (11.9-15.9); WHITE BLOOD COUNT 5.8 K/mm3 (4.0-10.0)
[2016-09-27 07:40] LABS: CALCIUM 9.1 mg/dL (8.5-10.1); CREATININE 0.6 mg/dL (0.7-1.3); MAGNESIUM 2.6 mg/dL (1.8-2.4); PHOSPHOROUS 4.1 mg/dL (2.5-4.9)
[2016-09-27] MEDS ORDERED: PT OWN MED DRAWER 7, Y5N ONE (10:10)
[2016-09-27] MEDS: POLYETHYLENE GLYCOL 3350 119 GM BTL GT SCH ×2 (10:18→22:06)
[2016-09-27] MEDS: HEPARIN NA (PORCINE) 5,000 UNITS/ML 1ML VIAL SQ SCH ×2 (10:21→22:06)
[2016-09-27] MEDS: METOCLOPRAMIDE HCL 5 MG/5 ML UNIT DOSE CUP GT SCH ×2 (10:21→22:06)
[2016-09-27] MEDS: diazePAM 5 MG TABLET GT SCH ×2 (10:22→22:06)
[2016-09-27] MEDS ORDERED: PANTOPRAZOLE 40 MG TABLET (FP) PO SCH (11:30)
[2016-09-27] MEDS: cefTRIAXone 1 GM/50 ML BAG (PRE-DOCKED) IVPB SCH (11:34)
--- NOTE | 2016-09-27 12:36 | PN ---
Progress Note (short form) - Note Progress Note: PULMONARY Overall improving. Reports small speck of red with mostly clear sputum. No fevers or chills.. Last Vital Signs Temp Pulse Resp BP Pulse Ox 98 F 60 16 97/50 98 09/27/16 06:00 09/27/16 06:00 09/27/16 06:00 09/27/16 06:00 09/26/16 22:00 Gen: NAD at rest Heart: RRR Lung: decreased breath sounds at the bases Abd: soft, nontender Ext: no edema CBC, BMP 09/27/16 06:20 09/27/16 06:20 Active Medications Bisacodyl (Dulcolax Suppository -) 10 mg RC DAILY PRN Last Admin: 09/24/16 09:34 Dose: 10 mg Ceftriaxone Sodium (Rocephin 1gm Ivpb (Pre-Docked)) 1 gm IVPB DAILY [facility] Last Admin: 09/27/16 11:34 Dose: 1 gm Diazepam (Valium -) 5 mg GT BID [facility] Last Admin: 09/27/16 10:22 Dose: 5 mg Heparin Sodium (Porcine) (Heparin -) 5,000 unit SQ BID [facility] Last Admin: 09/27/16 10:21 Dose: 5,000 unit Metoclopramide HCl (Reglan Oral Solution -) 5 mg GT BID [facility] Last Admin: 09/27/16 10:21 Dose: 5 mg Pantoprazole Sodium (Protonix Packets For Oral Suspension -) 40 mg NGT DAILY [facility] Polyethylene Glycol (Miralax (For Daily Use) -) 17 gm GT BID [facility] Last Admin: 09/27/16 10:18 Dose: Not Given Tramadol HCl (Ultram -) 50 mg PEG Q6H PRN PRN Reason: PAIN A/P Pneumonia Hemoptysis resolving Dystonia - continue antibiotics - O2 as needed - enteral feeds - aspiration precautions - DVT prophylaxis - can likely be discharged in AM on oral antibiotics
[2016-09-27] MEDS: PANTOPRAZOLE SOD 40 MG SUSPENSION PACKET NGT SCH (12:41)
--- NOTE | 2016-09-27 14:39 | PN ---
Progress Note, Physician Chief Complaint: Mr Nash says he is doing well. No cp, sob, n/v. - Current Medication List Current Medications: Active Medications Bisacodyl (Dulcolax Suppository -) 10 mg RC DAILY PRN Last Admin: 09/24/16 09:34 Dose: 10 mg Ceftriaxone Sodium (Rocephin 1gm Ivpb (Pre-Docked)) 1 gm IVPB DAILY [facility] Last Admin: 09/27/16 11:34 Dose: 1 gm Diazepam (Valium -) 5 mg GT BID [facility] Last Admin: 09/27/16 10:22 Dose: 5 mg Heparin Sodium (Porcine) (Heparin -) 5,000 unit SQ BID [facility] Last Admin: 09/27/16 10:21 Dose: 5,000 unit Metoclopramide HCl (Reglan Oral Solution -) 5 mg GT BID [facility] Last Admin: 09/27/16 10:21 Dose: 5 mg Pantoprazole Sodium (Protonix Packets For Oral Suspension -) 40 mg NGT DAILY [facility] Last Admin: 09/27/16 12:41 Dose: 40 mg Polyethylene Glycol (Miralax (For Daily Use) -) 17 gm GT BID [facility] Last Admin: 09/27/16 10:18 Dose: Not Given Tramadol HCl (Ultram -) 50 mg PEG Q6H PRN PRN Reason: PAIN - Objective Vital Signs: Vital Signs Temperature 98 F 09/27/16 06:00 Pulse Rate 60 09/27/16 06:00 Respiratory Rate 16 09/27/16 09:00 Blood Pressure 97/50 09/27/16 06:00 O2 Sat by Pulse Oximetry (%) 99 09/27/16 09:00 Constitutional: Yes: No Distress, Calm, Thin Cardiovascular: Yes: Regular Rate and Rhythm. No: Gallop, Murmur, Rub Respiratory: Yes: Regular, CTA Bilaterally. No: Rales, Rhonchi, Wheezes Gastrointestinal: Yes: Normal Bowel Sounds, Soft. No: Distention, Tenderness Extremities: Yes: WNL Edema: No Labs: CBC, BMP 09/27/16 06:20 09/27/16 06:20 INR, PTT INR 1.04 (0.82-1.09) 09/21/16 15:35 Problem List - Problems (1) Hemoptysis Code(s): R04.2 - HEMOPTYSIS (2) Pneumonia Code(s): J18.9 - PNEUMONIA, UNSPECIFIED ORGANISM Qualifiers: Pneumonia type: due to unspecified organism Laterality: left Lung location: lower lobe of lung Qualified Code(s): J18.1 - Lobar pneumonia, unspecified organism (3) COPD (chronic obstructive pulmonary disease) Code(s): J44.9 - CHRONIC OBSTRUCTIVE PULMONARY DISEASE, UNSPECIFIED Qualifiers : Chronic bronchitis type: unspecified (4) Dysphagia Code(s): R13.10 - DYSPHAGIA, UNSPECIFIED (5) Dystonia Code(s): G24.9 - DYSTONIA, UNSPECIFIED (6) Suprapubic catheter Code(s): Z93.59 - OTHER CYSTOSTOMY STATUS (7) GERD (gastroesophageal reflux disease) Code(s): K21.9 - GASTRO-ESOPHAGEAL REFLUX DISEASE WITHOUT ESOPHAGITIS Assessment/Plan (1) Hemoptysis Assessment/Plan: -secondary to pneumonia -appreciate pulmonary assistance, note reviewed -resolving Code(s): R04.2 - HEMOPTYSIS (2) Pneumonia Assessment/Plan: -continue rocephin day 6/7 Code(s): J18.9 - PNEUMONIA, UNSPECIFIED ORGANISM Qualifiers: Pneumonia type: due to unspecified organism Laterality: left Lung location: lower lobe of lung Qualified Code(s): J18.1 - Lobar pneumonia, unspecified organism (3) COPD (chronic obstructive pulmonary disease) Assessment/Plan: -not in exacerbation -continue albuterol -pulmonary following Code(s): J44.9 - CHRONIC OBSTRUCTIVE PULMONARY DISEASE, UNSPECIFIED Qualifiers : Chronic bronchitis type: unspecified (4) Dysphagia Assessment/Plan: -PEG tube placed with tube feeds Code(s): R13.10 - DYSPHAGIA, UNSPECIFIED (5) Dystonia Assessment/Plan: -continue home regimen Code(s): G24.9 - DYSTONIA, UNSPECIFIED (6) Suprapubic catheter Assessment/Plan: -s/p exchange Code(s): Z93.59 - OTHER CYSTOSTOMY STATUS (7) GERD -continue protonix
[2016-09-28 08:56] LABS: BASOPHIL 0.6 % (0-2.0); MCH 33.7 pg (25.7-33.7); MEAN CELL VOLUME 99.1 fl (80-96); MEAN PLT VOLUME 8.6 fl (7.5-11.1); NEUTROPHILS 58.5 % (42.8-82.8); PLATELET COUNT 193 K/MM3 (134-434); RDW 13.4 % (11.9-15.9); WHITE BLOOD COUNT 6.3 K/mm3 (4.0-10.0)
[2016-09-28 09:25] LABS: CALCIUM 8.9 mg/dL (8.5-10.1); CREATININE 0.6 mg/dL (0.7-1.3); MAGNESIUM 2.6 mg/dL (1.8-2.4); PHOSPHOROUS 4.3 mg/dL (2.5-4.9)
[2016-09-28] MEDS: METOCLOPRAMIDE HCL 5 MG/5 ML UNIT DOSE CUP GT SCH (09:54)
[2016-09-28] MEDS: PANTOPRAZOLE SOD 40 MG SUSPENSION PACKET NGT SCH (09:54)
[2016-09-28] MEDS: cefTRIAXone 1 GM/50 ML BAG (PRE-DOCKED) IVPB SCH ×3 (09:54→11:24)
[2016-09-28] MEDS: HEPARIN NA (PORCINE) 5,000 UNITS/ML 1ML VIAL SQ SCH (09:55)
[2016-09-28] MEDS: diazePAM 5 MG TABLET GT SCH (09:55)
[2016-09-28] MEDS: POLYETHYLENE GLYCOL 3350 119 GM BTL GT SCH (09:58)
--- NOTE | 2016-09-28 10:07 | PN ---
Progress Note (short form) - Note Progress Note: PULMONARY DAY # 7 IV ABS MINIMAL COUGH/ONLY "SPECK OF BLOOD" REMAINS AFEBRILE ANICTERIC CLEAR B/L BREATH SOUNDS S1S2 BS+ NO EDEMA LABS/MEDS/IMAGING/MICRO/REVIEWED - Problems (1) Hemoptysis Code(s): R04.2 - HEMOPTYSIS RESOLVED (2) Pneumonia Code(s): J18.9 - PNEUMONIA, UNSPECIFIED ORGANISM Qualifiers: Pneumonia type: due to unspecified organism Laterality: left Lung location: lower lobe of lung Qualified Code(s): J18.1 - Lobar pneumonia, unspecified organism (3) COPD (chronic obstructive pulmonary disease) Code(s): J44.9 - CHRONIC OBSTRUCTIVE PULMONARY DISEASE, UNSPECIFIED Qualifiers : Chronic bronchitis type: unspecified (4) Cavitary lesion of lung Code(s): J98.4 - OTHER DISORDERS OF LUNG CONTINUE: ANTIBIOTICS COMPLETED 7 DAYS TODAY /BRONCHODILATORS/O2 PRN WOULD TRANSFER BACK TO SNF PATIENT AGREES Bryan GAYTAN MD Problem List - Problems (1) Hemoptysis Code(s): R04.2 - HEMOPTYSIS (2) Pneumonia Code(s): J18.9 - PNEUMONIA, UNSPECIFIED ORGANISM Qualifiers: Pneumonia type: due to unspecified organism Laterality: left Lung location: lower lobe of lung Qualified Code(s): J18.1 - Lobar pneumonia, unspecified organism (3) COPD (chronic obstructive pulmonary disease) Code(s): J44.9 - CHRONIC OBSTRUCTIVE PULMONARY DISEASE, UNSPECIFIED Qualifiers : Chronic bronchitis type: unspecified (4) Cavitary lesion of lung Code(s): J98.4 - OTHER DISORDERS OF LUNG
--- NOTE | 2016-09-28 10:26 | PN ---
Progres Note Chief Complaint: voiding well. abdomen soft. continue current managment. change tube in 4 weeks - Objective Vital Signs: Vital Signs Temperature 97.7 F 09/28/16 06:00 Pulse Rate 54 L 09/28/16 06:00 Respiratory Rate 16 09/28/16 06:00 Blood Pressure 106/47 09/28/16 06:00 O2 Sat by Pulse Oximetry (%) 98 09/27/16 22:00 Labs/Additional Data: CBC, BMP 09/28/16 07:30 09/28/16 07:30 INR, PTT INR 1.04 (0.82-1.09) 09/21/16 15:35 Blood Type Blood Type A POSITIVE 09/21/16 15:35 Antibody Screen Negative 09/21/16 15:35
--- NOTE | 2016-09-28 14:04 | DS ---
Physical Examination Vital Signs: Vital Signs Temperature 97.7 F 09/28/16 06:00 Pulse Rate 54 L 09/28/16 06:00 Respiratory Rate 16 09/28/16 06:00 Blood Pressure 106/47 09/28/16 06:00 O2 Sat by Pulse Oximetry (%) 96 09/28/16 11:00 Constitutional: Yes: No Distress, Calm, Thin Cardiovascular: Yes: Regular Rate and Rhythm. No: Gallop, Murmur, Rub Respiratory: Yes: Regular, CTA Bilaterally. No: Rales, Rhonchi, Wheezes Gastrointestinal: Yes: Normal Bowel Sounds, Soft. No: Distention, Tenderness Extremities: Yes: WNL Edema: No Labs: CBC, BMP 09/28/16 07:30 09/28/16 07:30 Discharge Summary Reason For Visit: HEMOPTYSIS Current Active Problems GERD (gastroesophageal reflux disease) (Acute) Hemoptysis (Acute) Pneumonia (Acute) Hospital Course: (1) Hemoptysis Code(s): R04.2 - HEMOPTYSIS (2) Pneumonia Code(s): J18.9 - PNEUMONIA, UNSPECIFIED ORGANISM Qualifiers: Pneumonia type: due to unspecified organism Laterality: left Lung location: lower lobe of lung Qualified Code(s): J18.1 - Lobar pneumonia, unspecified organism (3) COPD (chronic obstructive pulmonary disease) Code(s): J44.9 - CHRONIC OBSTRUCTIVE PULMONARY DISEASE, UNSPECIFIED Qualifiers : Chronic bronchitis type: unspecified (4) Dysphagia Code(s): R13.10 - DYSPHAGIA, UNSPECIFIED (5) Dystonia Code(s): G24.9 - DYSTONIA, UNSPECIFIED (6) Suprapubic catheter Code(s): Z93.59 - OTHER CYSTOSTOMY STATUS (7) GERD (gastroesophageal reflux disease) Code(s): K21.9 - GASTRO-ESOPHAGEAL REFLUX DISEASE WITHOUT ESOPHAGITIS Mr Nash is a very pleasant 60 year old male who came in with hemoptysis secondary to pneumonia. He was admitted to the hospital and started on rocephin. He was followed by pulmonary. He improved significantly. His hemoptysis resolved. He finished a full course of rocephin. He was seen by urology and his suprapubic catheter was changed. Currently he is stable for discharge back to SNF. 37 minutes spent in preparation of this discharge Condition: Good - Instructions Diet, Activity, Other Instructions: resume previous tube feeds and activity Referrals: Abad Tanner MD [Primary Care Provider] - Disposition: [facility] - Home Medications Comprehensive Discharge Medication List: Ambulatory Orders Diazepam [Valium] 5 mg GT TID 04/23/14 Albuterol Sulfate [Proair Hfa -] 1 - 2 inh PO QID PRN 04/12/15 Methenamine/Sodium Salicylate [Cystex Plus Tablet] 1 each GT DAILY 04/12/15 Heparin - 5,000 unit SQ BID vial 04/25/16 Albuterol 0.083% Nebulizer Jojo [Ventolin 0.083% Nebulizer Soln -] 1 amp NEB TID PRN 08/05/16 Docusate Sodium [Colace -] 300 mg GT HS 08/05/16 Metoclopramide HCl 5 mg GT BID 08/05/16 Polyethylene Glycol 3350 [Miralax 119 gm Btl -] 17 gm GT DAILY PRN 08/05/16 Ranitidine [Zantac -] 150 mg GT BID 08/05/16 Tramadol HCl 50 mg GT Q6H PRN 08/05/16 Bisacodyl [Biscolax] 10 mg RC PRN 09/21/16 Polyethylene Glycol 3350 [Miralax 119 gm Btl -] 17 gm PO DAILY 09/21/16
[2016-09-28 15:44] VITALS: BP 101/66; PULSE 65; TEMP 98.4
== END 2016-09-28 16:25 | DRG 194 ==
LOC: JER 14:35 → JERBED 21:22 → J5S 09-22 02:33
PROVIDERS: ADMIT Internal Medicine; ATTEND Internal Medicine
DX: J18.9 Pneumonia, unspecified organism (principal); R04.2 Hemoptysis; J44.9 Chronic obstructive pulmonary disease, unspecified; R13.10 Dysphagia, unspecified; G24.9 Dystonia, unspecified; K21.9 Gastro-esophageal reflux disease without esophagitis; Z93.59 Other cystostomy status; Z93.1 Gastrostomy status
CPT/HCPCS: 36415; 71010-TC; 71250-TC; 76775-TC; 76856-TC; 80048; 80053; 83520; 83690; 83735; 84100; 84153; 85025; 85379; 85610; 85651; 86256; 86850; 86900; 86901; 87040; 87070; 87205; 93005; 93010; 99285-25; J1644

== ENCOUNTER 2016-10-17 23:58 | Inpatient (IN) | payer OTHER, BC ==
[2016-10-18] MEDS ORDERED: SODIUM CHLORIDE 0.9% 1000 ML INFUS.BAG IV ONE (00:34)
[2016-10-18] MEDS ORDERED: PANTOPRAZOLE SODIUM 80 MG in SODIUM CHLORIDE 100 ML IVPB ONE (00:34)
[2016-10-18] MEDS ORDERED: ACETAMINOPHEN 1000 MG/100 ML VIAL (NON FORMULARY) IVPB ONE (01:03)
[2016-10-18] MEDS ORDERED: PANTOPRAZOLE SODIUM 40 MG VIAL ONE (01:07)
[2016-10-18 01:18] LABS: MCHC 33.6 g/dl (32.0-35.9); MEAN CELL VOLUME 98.1 fl (80-96); MEAN PLT VOLUME 9.3 fl (7.5-11.1); PLATELET COUNT 161 K/MM3 (134-434); RDW 12.9 % (11.9-15.9)
[2016-10-18] MEDS ORDERED: ACETAMINOPHEN INJECTION 100 ML IVPB ONE (01:32)
[2016-10-18 01:34] LABS: ALBUMIN 3.4 g/dl (3.4-5.0); ALK PHOS 77 U/L (45-117); ANION GAP 14 (8-16); BILIRUBIN,TOTAL 0.3 mg/dL (0.2-1.0); CALCIUM 8.5 mg/dL (8.5-10.1); CO2 24 mmol/L (21-32); COCKROFT - GAULT 75.16; CREATININE 0.7 mg/dL (0.7-1.3); GLUCOSE,RANDOM 136 mg/dL (74-106); SGOT/AST 36 U/L (15-37); SGPT/ALT 50 U/L (12-78); TOT PROT 6.4 g/dl (6.4-8.2)
[2016-10-18] MEDS ORDERED: CEFEPIME HCL 2 GM VIAL (RESTRICTED TO ID) IVPB ONE (01:35)
[2016-10-18] MEDS ORDERED: VANCOMYCIN 1 GRAM (PRE-DOCKED) 1,000 MG/250 ML BAG IVPB ONE (01:35)
--- NOTE | 2016-10-18 01:35 | PDOC ---
History of Present Illness <Freda Flynn - Last Filed: 10/18/16 01:42> - General History Source: Patient Exam Limitations: No Limitations - History of Present Illness Initial Comments: 10/18/16 01:46 Patient is a 60 year old male with a significant past medical history of cervical fusion s/p fracture, dystonia, neurogenic bladder, PEG tube presents with hemoptysis. Patient states that he is coughing and spitting up bright red blood. He notes that the blood is coming out of his nose when he is coughing. He also reports epigastric pain. Patient is actively coughing up bright red blood. He denies any fever, chills, nausea, vomiting, diarrhea, melena, pain with deep inspiration, light-headedness. Patient was recently admitted to [facility] with pneumonia/hemoptysis. Allergies: penicillin PCP - Dr. Dos Santos SH: Xiao TORREZ <Gabi Parr - Last Filed: 10/18/16 01:55> - General Chief Complaint: Vomiting Blood Stated Complaint: VOMITING BLOOD Past History - Past Medical History Asthma: Yes COPD: Yes GI Disorders: Yes (GERD) Disorders: Yes (NEUROGENIC BLADDER) HTN: Yes Psychiatric Problems: Yes (Anxiety,) - Surgical History GI Surgery: Yes (supra pubic sx) Neurologic Surgery: Yes (cervical fusion, dystonia) Orthopedic Surgery: Yes - Immunization History Immunization Up to Date: Yes - Psycho/Social/Smoking Cessation Hx Anxiety: No Suicidal Ideation: No Smoking History: Never smoked Have you smoked in the past 12 months: No Number of Cigarettes Smoked Daily: 0 Cigars Per Day: 0 Hx Alcohol Use: No Drug/Substance Use Hx: No Substance Use Type: None Hx Substance Use Treatment: No <Freda Flynn - Last Filed: 10/18/16 01:42> <Gabi Parr - Last Filed: 10/18/16 01:55> - Past Medical History Allergies/Adverse Reactions: Allergies Allergy/AdvReac Type Severity Reaction Status Date / Time iodine Allergy Severe Low Blood Verified 10/18/16 00:36 Pressure kiwi Allergy Intermediate Swelling Verified 10/18/16 00:36 latex Allergy Unknown Swelling Verified 10/18/16 00:36 shellfish derived Allergy Unknown Verified 10/18/16 00:36 ampicillin sodium Allergy Rash Verified 10/18/16 00:36 [From Unasyn] Fish Containing Products Allergy Difficulty Verified 10/18/16 00:36 Breathing Penicillins Allergy Rash Verified 10/18/16 00:36 sulbactam sodium Allergy Rash Verified 10/18/16 00:36 [From Unasyn] Sulfa (Sulfonamide Allergy Hives Verified 10/18/16 00:36 Antibiotics) [Sulfa(Sulfonamide Antibiotics)] Home Medications: Ambulatory Orders Diazepam [Valium] 5 mg GT TID 04/23/14 Albuterol Sulfate [Proair Hfa -] 1 - 2 inh PO QID PRN 04/12/15 Methenamine/Sodium Salicylate [Cystex Plus Tablet] 1 each GT DAILY 04/12/15 Heparin - 5,000 unit SQ BID vial 04/25/16 Albuterol 0.083% Nebulizer Jojo [Ventolin 0.083% Nebulizer Soln -] 1 amp NEB TID PRN 08/05/16 Docusate Sodium [Colace -] 300 mg GT HS 08/05/16 Metoclopramide HCl 5 mg GT BID 08/05/16 Polyethylene Glycol 3350 [Miralax 119 gm Btl -] 17 gm GT DAILY PRN 08/05/16 Ranitidine [Zantac -] 150 mg GT BID 08/05/16 Tramadol HCl 50 mg GT Q6H PRN 08/05/16 Bisacodyl [Biscolax] 10 mg RC PRN 09/21/16 Polyethylene Glycol 3350 [Miralax 119 gm Btl -] 17 gm PO DAILY 09/21/16 Review of Systems - Review of Systems Able to Perform ROS?: Yes Comments:: 10/18/16 01:46 GENERAL/CONSTITUTIONAL: No fever or chills. No weakness. HEAD, EYES, EARS, NOSE AND THROAT: No change in vision. No ear pain or discharge. No sore throat. GASTROINTESTINAL: No nausea, vomiting, diarrhea or constipation. GENITOURINARY: No dysuria, frequency, or change in urination. CARDIOVASCULAR: No chest pain or shortness of breath. RESPIRATORY: (+)hemoptysis, cough. No wheezing MUSCULOSKELETAL: No joint or muscle swelling or pain. No neck or back pain. SKIN: No rash NEUROLOGIC: No headache, vertigo, loss of consciousness, or change in strength/ sensation. ENDOCRINE: No increased thirst. No abnormal weight change. HEMATOLOGIC/LYMPHATIC: No anemia, easy bleeding, or history of blood clots. ALLERGIC/IMMUNOLOGIC: No hives or skin allergy. <Gabi Parr - Last Filed: 10/18/16 01:55> *Physical Exam - Vital Signs Last Vital Signs Temp Pulse Resp BP Pulse Ox 103.0 F H 108 H 22 97/64 94 L 10/18/16 00:28 10/18/16 00:28 10/18/16 00:28 10/18/16 00:28 10/18/16 00:28 <RhodasamreenFreda - Last Filed: 10/18/16 01:42> - Vital Signs Last Vital Signs Temp Pulse Resp BP Pulse Ox 103.0 F H 108 H 22 97/64 94 L 10/18/16 00:28 10/18/16 00:28 10/18/16 00:28 10/18/16 00:28 10/18/16 00:28 - Physical Exam Comments: 10/18/16 01:47 GENERAL: Awake, alert, and fully oriented, in no acute distress HEAD: No signs of trauma EYES: PERRLA, EOMI, sclera anicteric, conjunctiva clear ENT: (+)Crusted blood in the right nare, Moist mucosa NECK: Normal ROM, supple, no lymphadenopathy, JVD, or masses LUNGS: (+)crackles on the left side. No wheezes HEART: (+)Regular tachycardia, normal S1 and S2, no murmurs, rubs or gallops ABDOMEN: (+)Subrpubic cathether in place (+) Peg tube no visible blood in tube, no surrounding erythema, crusting around the tube. Soft, nontender, normoactive bowel sounds. No guarding, no rebound. No masses EXTREMITIES: Well perfused. Normal range of motion, no edema. No clubbing or cyanosis. No cords, erythema, or tenderness NEUROLOGICAL: Normal speech SKIN: Warm, Dry, normal turgor, no rashes or lesions noted. <Gabi Parr - Last Filed: 10/18/16 01:55> Heart Score/ECG Review #1 10/18/16 01:47 Sinus tachycardia at 111 bpm Incomplete right bundle branch block Left anterior fascicular block Nonspecific ST abnormality Compared to 09/21/16 ECG. <Gabi Parr - Last Filed: 10/18/16 01:55> ED Treatment Course - LABORATORY CBC & Chemistry Diagram: 10/18/16 00:57 10/18/16 00:57 - ADDITIONAL ORDERS Additional order review: 10/18/16 00:57 RBC 3.78 L MCV 98.1 H MCHC 33.6 RDW 12.9 MPV 9.3 Neutrophils % Y Lymphocytes % Y - RADIOLOGY Radiology Studies Ordered: Category Date Time Status CHEST X-RAY PORTABLE* [RAD] Stat Radiology 10/18/16 00:33 Ordered - Medications Given in the ED: ED Medications Discontinued Medications Generic Name Dose Route Start Last Admin Trade Name Freq PRN Reason Stop Dose Admin Pantoprazole Sodium 80 mg/ 100 mls @ 200 mls/hr 10/18/16 00:34 10/18/16 01:15 Sodium Chloride IVPB 10/18/16 01:03 200 mls/hr ONCE ONE Administration Sodium Chloride 1,000 ml 10/18/16 00:34 10/18/16 01:15 Normal Saline - IV 10/18/16 00:35 1,000 ml ONCE ONE Administration <Freda Flynn - Last Filed: 10/18/16 01:42> - LABORATORY CBC & Chemistry Diagram: 10/18/16 00:57 10/18/16 00:57 - ADDITIONAL ORDERS Additional order review: Laboratory Results 10/18/16 10/18/16 00:57 00:57 INR 1.24 H PTT (Actin FS) 33.5 Sodium 134 L Potassium 3.9 Chloride 96 L Carbon Dioxide 24 D Anion Gap 14 BUN 23 H D Creatinine 0.7 Creat Clearance w eGFR > 60 Random Glucose 136 H D Calcium 8.5 Total Bilirubin 0.3 D AST 36 ALT 50 Alkaline Phosphatase 77 Total Protein 6.4 Albumin 3.4 10/18/16 00:57 RBC 3.78 L MCV 98.1 H MCHC 33.6 RDW 12.9 MPV 9.3 Neutrophils % Y Lymphocytes % Y - Medications Given in the ED: ED Medications Discontinued Medications Generic Name Dose Route Start Last Admin Trade Name Freq PRN Reason Stop Dose Admin Acetaminophen 1,000 mg 10/18/16 01:03 10/18/16 01:30 Ofirmev Injection - IVPB 10/18/16 01:04 1,000 mg ONCE ONE Administration Pantoprazole Sodium 80 mg/ 100 mls @ 200 mls/hr 10/18/16 00:34 10/18/16 01:15 Sodium Chloride IVPB 10/18/16 01:03 200 mls/hr ONCE ONE Administration Sodium Chloride 1,000 ml 10/18/16 00:34 10/18/16 01:15 Normal Saline - IV 10/18/16 00:35 1,000 ml ONCE ONE Administration <Gabi Parr - Last Filed: 10/18/16 01:55> Medical Decision Making - Medical Decision Making 10/18/16 01:30 61 yo male h/o dystonia, nuerogenic bladder ( suprapubic cathetar) and peg, recenlty pneumonia and hemoptysis, here today wtih c/o recurrent hemoptysis. pt states started today. denies hemetemesis. no melena. no f/c. does have cough , and shortness of breath. does have epigastric abd pain. no new drainage from PEG. on exam pt awake, small hemoptysis in basin. thin, nares with crusted blood. moist mucous membranes. lunggs wtih crackles left lung, no wheeze, heart reg tachycardia. abd with PEG CDI, skin warm and dry. suprapubic with sediment. plan : sepsis r/o pna, anemia coagulopathy. treat for potential GI sources. cover for sepsis with iv fluids, fever control. broad spectrum antiobiotics cefepime ( recently treated with eftriaxone and vanco) . admit <Freda Flynn - Last Filed: 10/18/16 01:42> - Medical Decision Making 10/18/16 01:45 A call was placed to Dr. Tanner and case was discussed. <Gabi Parr - Last Filed: 10/18/16 01:55> *DC/Admit/Observation/Transfer - Discharge Dispostion Admit: Yes <Freda Flynn - Last Filed: 10/18/16 01:42> - Attestations Scribe Attestion: 10/18/16 01:47 Documentation prepared by JIGAR Wyatt, acting as medical insurance claims processor for Freda Flynn MD. <Gabi Parr - Last Filed: 10/18/16 01:55> Diagnosis at time of Disposition: Cough with hemoptysis, Pneumonia
[2016-10-18 01:37] LABS: INR 1.24 (0.82-1.09); PROTHROMBIN TIME (PATIENT) 13.7 SEC (9.98-11.88)
[2016-10-18 01:40] LABS: ACTIVATED PTT 33.5 SECONDS (26.9-34.4)
[2016-10-18 01:46] LABS: URINE APPEARANCE SLCLOUDY; URINE BILIRUBIN NEGATIVE (NEGATIVE); URINE BLOOD NEGATIVE (NEGATIVE); URINE COLOR YELLOW; URINE GLUCOSE (UA) NEGATIVE (NEGATIVE); URINE KETONE NEGATIVE (NEGATIVE); URINE NITRITE NEGATIVE (NEGATIVE); URINE UROBILINOGEN NEGATIVE E.U./dl (0.2-1.0)
[2016-10-18] MEDS ORDERED: POLYETHYLENE GLYCOL 3350 119 GM BTL GT PRN (01:46)
[2016-10-18] MEDS ORDERED: ALBUTEROL SO4 0.083% IH SOL 2.5 MG/3 ML VIAL.NEB. NEB PRN (01:46)
[2016-10-18] MEDS ORDERED: traMADol HCL 50 MG TABLET PEG PRN (01:46)
[2016-10-18] MEDS ORDERED: ONDANSETRON 4 MG/2 ML VIAL IVPB PRN (01:50)
[2016-10-18 01:53] LABS: URINE LEUK ESTERASE 3+ (NEGATIVE); URINE PROTEIN 1+ (NEGATIVE)
[2016-10-18] MEDS ORDERED: BISACODYL 10 MG SUPP.RECT RC PRN (02:00)
[2016-10-18] MEDS ORDERED: CEFEPIME HCL 2 GM VIAL (RESTRICTED TO ID) IVPB SCH (02:00)
[2016-10-18] MEDS ORDERED: CEFEPIME 2 GM/100 ML BAG PRE-DOCKED IVPB ONE (02:15)
[2016-10-18 02:17] LABS: URINE MUCUS RARE; URINE RBC 9 /hpf (0-3); URINE WBC 24 /hpf (3-5)
[2016-10-18] MEDS ORDERED: VANCOMYCIN 1 GRAM (PRE-DOCKED) 250 ML IVPB ONE (02:29)
[2016-10-18] MEDS ORDERED: CEFEPIME 100 ML IVPB ONE (02:30)
[2016-10-18] MEDS ORDERED: ACETAMINOPHEN 325 MG TABLET (FP) ONE (06:20)
[2016-10-18] MEDS ORDERED: diazePAM 5 MG TABLET ONE (06:21)
[2016-10-18] MEDS ORDERED: ACETAMINOPHEN 650 MG/20.3 ML ORAL SOLUTION (CUPS) ONE (06:22)
[2016-10-18] MEDS: ACETAMINOPHEN 325 MG TABLET (FP) PO PRN ×2 (06:33→17:43)
[2016-10-18] MEDS: diazePAM 5 MG TABLET GT SCH ×3 (06:34→21:19)
[2016-10-18 07:45] LABS: ARTERIAL BLD GAS O2 SATURATION 98.2 % (90-98.9); ARTERIAL BLOOD GAS BASE EXCESS 1.2 meq/l (-2-2); ARTERIAL BLOOD GAS HCO3 24.2 meq/L (22-26)
[2016-10-18 07:47] LABS: ARTERIAL BLOOD GAS PO2 92.5 mmHg (80-100); ARTERIAL BLOOD GAS pH 7.44 (7.35-7.45)
[2016-10-18 07:50] LABS: ALLENS TEST POSITIVE; ART PUNCT SITE LEFT RADIAL; LPM/O2% 2L; TYPE OF O2 NASAL
[2016-10-18] MEDS: HEPARIN NA (PORCINE) 5,000 UNITS/ML 1ML VIAL SQ SCH ×2 (09:00→21:20)
[2016-10-18] MEDS ORDERED: PANTOPRAZOLE 40 MG TABLET (FP) PO SCH (10:00)
[2016-10-18] MEDS ORDERED: RANITIDINE HCL 150 MG TABLET (FP) PO SCH (10:00)
[2016-10-18 11:09] VITALS: BMI 17.8
--- NOTE | 2016-10-18 11:10 | HP ---
Admitting History and Physical - Primary Care Physician PCP: Abad Tanner - Admission Chief Complaint: I'm coughing up blood again History of Present Illness: Mr Nash is a pleasant 61 year old male from [facility] who comes in with hemoptysis. He says that he was doing well since last discharge, however last night he started to cough up blood. He says his sputum is all different colors but that he had a lot of blood when he was coughing. He also thinks that it may be secondary to his feeding tube as he says he did not notice this until it was changed. He says his sputum also looks like his tube feeds. He did have a fever with this at the shelter with the maximum temperature being 103. He had shortness of breath with this. He denies lightheadedness, dizziness, passing out , chest pain, nausea, vomiting, diarrhea, constipation, or swelling. He still says he is coughing up blood but in looking at his most recent sputum it appears to be more consistent with tube feeds. 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: Other (Muscular dystonia since age 21 year) Cardiovascular: Yes: HTN Pulmonary: Yes: Asthma, Pneumonia, Sleep Apnea, Other (Cavitary lesion in lung ruled out for TB) Gastrointestinal: Yes: Constipation, GERD, Other (dysphagia) Hepatobiliary: Yes: Other (as noted in medical record.) Renal/: Yes: BPH (s/p thermal prostate procedure), Neurogenic Bladder ( suprapubic tube ), UTI Heme/Onc: Yes: Other (as noted in medical record) Infectious Disease: Yes: Other (influenza b august 2013) Psych: Yes: Depression Musculoskeletal: Yes: Other (Muscular dystonia) - Past Surgical History Past Surgical History: Yes: Laminectomy (cervical laminectomy with fusion) - Smoking History Smoking history: Never smoked Have you smoked in the past 12 months: No Aproximately how many cigarettes per day: 0 - Alcohol/Substance Use Hx Alcohol Use: No History of Substance Use: reports: None, Marijuana (years ago. 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 History of Recent Travel: No Home Medications - Allergies Allergies/Adverse Reactions: Allergies Allergy/AdvReac Type Severity Reaction Status Date / Time iodine Allergy Severe Low Blood Verified 10/18/16 00:36 Pressure kiwi Allergy Intermediate Swelling Verified 10/18/16 00:36 latex Allergy Unknown Swelling Verified 10/18/16 00:36 shellfish derived Allergy Unknown Verified 10/18/16 00:36 ampicillin sodium Allergy Rash Verified 10/18/16 00:36 [From Unasyn] Fish Containing Products Allergy Difficulty Verified 10/18/16 00:36 Breathing Penicillins Allergy Rash Verified 10/18/16 00:36 sulbactam sodium Allergy Rash Verified 10/18/16 00:36 [From Unasyn] Sulfa (Sulfonamide Allergy Hives Verified 10/18/16 00:36 Antibiotics) [Sulfa(Sulfonamide Antibiotics)] - Home Medications Home Medications: Ambulatory Orders Diazepam [Valium] 5 mg GT TID 04/23/14 Albuterol Sulfate [Proair Hfa -] 1 - 2 inh PO QID PRN 04/12/15 Methenamine/Sodium Salicylate [Cystex Plus Tablet] 1 each GT DAILY 04/12/15 Heparin - 5,000 unit SQ BID vial 04/25/16 Albuterol 0.083% Nebulizer Jojo [Ventolin 0.083% Nebulizer Soln -] 1 amp NEB TID PRN 08/05/16 Docusate Sodium [Colace -] 300 mg GT HS 08/05/16 Metoclopramide HCl 5 mg GT BID 08/05/16 Polyethylene Glycol 3350 [Miralax 119 gm Btl -] 17 gm GT DAILY PRN 08/05/16 Ranitidine [Zantac -] 150 mg GT BID 08/05/16 Tramadol HCl 50 mg GT Q6H PRN 08/05/16 Bisacodyl [Biscolax] 10 mg RC PRN 09/21/16 Polyethylene Glycol 3350 [Miralax 119 gm Btl -] 17 gm PO DAILY 09/21/16 Family Disease History - Family Disease History Family Disease History: Diabetes: Father (mild cognitive decline), Heart Disease : Father, CA: Mother (, colon cancer), Other: Father Review of Systems Findings/Remarks: Full review of systems obtained, as per HPI and otherwise negative Physical Examination Vital Signs: Vital Signs Temperature 100.8 F H 10/18/16 08:00 Pulse Rate 105 H 10/18/16 06:00 Respiratory Rate 18 10/18/16 06:00 Blood Pressure 105/67 10/18/16 06:00 O2 Sat by Pulse Oximetry (%) 98 10/18/16 06:37 Constitutional: Yes: No Distress, Calm, Thin Cardiovascular: Yes: Regular Rate and Rhythm. No: Gallop, Murmur, Rub Respiratory: Yes: Regular, On Nasal O2, Rhonchi. No: Rales, Wheezes Gastrointestinal: Yes: Normal Bowel Sounds, Soft, Other (g-tube in place without c/d/i). No: Distention, Tenderness Extremities: Yes: WNL Edema: No Labs: Laboratory Results - last 24 hr 10/18/16 10/18/16 10/18/16 00:57 00:57 00:57 WBC 14.0 H D RBC 3.78 L Hgb 12.5 Hct 37.0 MCV 98.1 H MCHC 33.6 RDW 12.9 Plt Count 161 MPV 9.3 Neutrophils % 54.0 Lymphocytes % 4.0 L D Monocytes % 13.0 H Band Neutrophils 29.0 H D INR 1.24 H PTT (Actin FS) 33.5 Puncture Site ABG pH ABG pCO2 at Pt Temp ABG pO2 at Pt Temp ABG HCO3 ABG O2 Sat (Measured) ABG O2 Content ABG Base Excess Serg Test O2 Delivery Device Oxygen Flow Rate PEEP Sodium 134 L Potassium 3.9 Chloride 96 L Carbon Dioxide 24 D Anion Gap 14 BUN 23 H D Creatinine 0.7 Creat Clearance w eGFR > 60 Random Glucose 136 H D Lactic Acid Calcium 8.5 Total Bilirubin 0.3 D AST 36 ALT 50 Alkaline Phosphatase 77 Total Protein 6.4 Albumin 3.4 Urine Color Urine Appearance Urine pH Ur Specific Hildreth Urine Protein Urine Glucose (UA) Urine Ketones Urine Blood Urine Nitrite Urine Bilirubin Urine Urobilinogen Ur Leukocyte Esterase Urine RBC Urine WBC Ur Epithelial Cells Urine Mucus Blood Type Antibody Screen 10/18/16 10/18/16 10/18/16 01:00 01:00 01:40 WBC RBC Hgb Hct MCV MCHC RDW Plt Count MPV Neutrophils % Lymphocytes % Monocytes % Band Neutrophils INR PTT (Actin FS) Puncture Site ABG pH ABG pCO2 at Pt Temp ABG pO2 at Pt Temp ABG HCO3 ABG O2 Sat (Measured) ABG O2 Content ABG Base Excess Serg Test O2 Delivery Device Oxygen Flow Rate PEEP Sodium Potassium Chloride Carbon Dioxide Anion Gap BUN Creatinine Creat Clearance w eGFR Random Glucose Lactic Acid 1.1 Calcium Total Bilirubin AST ALT Alkaline Phosphatase Total Protein Albumin Urine Color Yellow Urine Appearance Slcloudy Urine pH 7.0 D Ur Specific Hildreth 1.015 Urine Protein 1+ H Urine Glucose (UA) Negative Urine Ketones Negative Urine Blood Negative Urine Nitrite Negative Urine Bilirubin Negative Urine Urobilinogen Negative Ur Leukocyte Esterase 3+ H Urine RBC 9 Urine WBC 24 Ur Epithelial Cells Rare Urine Mucus Rare Blood Type A POSITIVE Antibody Screen Negative 10/18/16 07:25 WBC RBC Hgb Hct MCV MCHC RDW Plt Count MPV Neutrophils % Lymphocytes % Monocytes % Band Neutrophils INR PTT (Actin FS) Puncture Site Left radial ABG pH 7.44 ABG pCO2 at Pt Temp 36.6 D ABG pO2 at Pt Temp 92.5 ABG HCO3 24.2 ABG O2 Sat (Measured) 98.2 ABG O2 Content 16.6 ABG Base Excess 1.2 Serg Test Positive O2 Delivery Device Nasal Oxygen Flow Rate 2l PEEP 0.0 Sodium Potassium Chloride Carbon Dioxide Anion Gap BUN Creatinine Creat Clearance w eGFR Random Glucose Lactic Acid Calcium Total Bilirubin AST ALT Alkaline Phosphatase Total Protein Albumin Urine Color Urine Appearance Urine pH Ur Specific Hildreth Urine Protein Urine Glucose (UA) Urine Ketones Urine Blood Urine Nitrite Urine Bilirubin Urine Urobilinogen Ur Leukocyte Esterase Urine RBC Urine WBC Ur Epithelial Cells Urine Mucus Blood Type Antibody Screen Imaging - Results Chest X-ray: Report Reviewed, Image Reviewed Problem List - Problems (1) Cough with hemoptysis Assessment/Plan: -patient has second presentation of hemoptysis -admit to the hospital -consult pulmonary -suspect secondary to aspiration pneumonitis -treat underlying condition Code(s): R04.2 - HEMOPTYSIS (2) Sepsis Assessment/Plan: -as evidenced by fevers and leukocytosis with left shift -hydrate with IVF -given broad spectrum antibiotics -ID consulted to manage antibiotics Code(s): A41.9 - SEPSIS, UNSPECIFIED ORGANISM (3) Pneumonia Assessment/Plan: -not seen on chest x-ray, but clinically appears to be pneumonia -suspect patient may have aspiration pneumonia as sputum looks like tube feeds -ID to manage antibiotics Code(s): J18.9 - PNEUMONIA, UNSPECIFIED ORGANISM Qualifiers: (4) Dysphagia Assessment/Plan: -with g-tube in place -may be having aspiration of tube feeds -will evaluate rate of tube feeds as may need to be adjusted -sit up while tube feeds are running, none at night Code(s): R13.10 - DYSPHAGIA, UNSPECIFIED (5) COPD (chronic obstructive pulmonary disease) Assessment/Plan: -secondary to pneumonia/aspiration -pulmonary to see -continue home regimen Code(s): J44.9 - CHRONIC OBSTRUCTIVE PULMONARY DISEASE, UNSPECIFIED Qualifiers : COPD type: COPD with acute exacerbation Qualified Code(s): J44.1 - Chronic obstructive pulmonary disease with (acute) exacerbation (6) Dystonia Assessment/Plan: -continue home regimen Code(s): G24.9 - DYSTONIA, UNSPECIFIED (7) GERD (gastroesophageal reflux disease) Assessment/Plan: -continue protonix Code(s): K21.9 - GASTRO-ESOPHAGEAL REFLUX DISEASE WITHOUT ESOPHAGITIS (8) HTN (hypertension) Assessment/Plan: -well controlled Code(s): I10 - ESSENTIAL (PRIMARY) HYPERTENSION Qualifiers:
[2016-10-18] MEDS ORDERED: ONDANSETRON 4 MG/2 ML VIAL ONE (11:29)
[2016-10-18] MEDS ORDERED: RANITIDINE HCL 150 MG TABLET (FP) ONE (14:09)
[2016-10-18] MEDS ORDERED: PANTOPRAZOLE 40 MG TABLET (FP) ONE (14:10)
[2016-10-18] MEDS ORDERED: CEFEPIME 1 GM in DEXTROSE 5%-WATER - 100 ML IVPB ONE ×2 (14:30→16:30)
--- NOTE | 2016-10-18 15:37 | EKG ---
Test Reason : Blood Pressure : / mmHG Vent. Rate : 111 BPM Atrial Rate : 111 BPM P-R Int : 146 ms QRS Dur : 118 ms QT Int : 348 ms P-R-T Axes : 085 -60 066 degrees QTc Int : 473 ms POOR DATA QUALITY, INTERPRETATION MAY BE ADVERSELY AFFECTED SINUS TACHYCARDIA INCOMPLETE RIGHT BUNDLE BRANCH BLOCK LEFT ANTERIOR FASCICULAR BLOCK NONSPECIFIC ST ABNORMALITY ABNORMAL ECG WHEN COMPARED WITH ECG OF 21-SEP-2016 14:50, VENT. RATE HAS INCREASED BY 44 BPM INCOMPLETE RIGHT BUNDLE BRANCH BLOCK HAS REPLACED RIGHT BUNDLE BRANCH BLOCK Confirmed by SHILPI BISWAS MD ([id number]) on 10/18/2016 3:37:14 PM Referred By: Confirmed By:SHILPI BISWAS MD
--- NOTE | 2016-10-18 16:19 | CON.PULM ---
Consult Consult Specialty:: PULMONARY Referred by:: Dr. Dos Santos Reason for Consultation:: pneumonia - History of Present Illness Chief Complaint: cough, fevers History of Present Illness: 61yo male with h/o muscular dystonia, HTN, BPH, neurogenic bladder s/p suprapubic catheter, recurrent pneumonia presumed aspiration s/p PEG placement who [facility] cough with hemoptysis. He reports a fever to 103 starting yesterday with subjective chills. Also reports some dyspnea but without chest pain, palpitations. No nausea or vomiting. He was last admitted beginning of September with similar symptoms which improved with a course of antibiotics and was feeling fine until yesterday. He [facility] feeds at the [facility], he was changed from continuous feeds as he was losing weight. He does keep an upright position during feeds and post prandial periods. But he does feel the feeds coming up and occasionally coughs. 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) Cardio/Vascular: Yes: HTN Pulmonary: Yes: Asthma, Pneumonia, Sleep Apnea, Other (Cavitary lesion in lung ruled out for TB) Gastrointestinal: Yes: Constipation, GERD, Other (dysphagia) Hepatobiliary: Yes: Other (as noted in medical record.) Renal/: Yes: BPH (s/p thermal prostate procedure), Neurogenic Bladder ( suprapubic tube ), UTI Infectious Disease: Yes: Other (influenza b august 2013) Psych: Yes: Depression Musculoskeletal: Yes: Other (Muscular dystonia) - Past Surgical History Past Surgical History: Yes: Laminectomy (cervical laminectomy with fusion) - Alcohol/Substance Use Hx Alcohol Use: No History of Substance Use: reports: None, Marijuana (years ago. No current use) Date of Last Use: 05/18/78 (estimated) - Smoking History Smoking history: Never smoked Have you smoked in the past 12 months: No Aproximately how many cigarettes per day: 0 - Social History Usual Living Arrangement: Other (Mr. Richard reports that he was born and raised in [place]. He attended several colleges including [employer], [employer], and [employer]. He briefly attended [employer] but discontinued due to financial reasons. 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 In 1986, Mr. Nash was disabled s/p a weightlifting accident that fractured his neck. 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 History of Recent Travel: No Home Medications - Allergies Allergies/Adverse Reactions: Allergies Allergy/AdvReac Type Severity Reaction Status Date / Time iodine Allergy Severe Low Blood Verified 10/18/16 00:36 Pressure kiwi Allergy Intermediate Swelling Verified 10/18/16 00:36 latex Allergy Unknown Swelling Verified 10/18/16 00:36 shellfish derived Allergy Unknown Verified 10/18/16 00:36 ampicillin sodium Allergy Rash Verified 10/18/16 00:36 [From Unasyn] Fish Containing Products Allergy Difficulty Verified 10/18/16 00:36 Breathing Penicillins Allergy Rash Verified 10/18/16 00:36 sulbactam sodium Allergy Rash Verified 10/18/16 00:36 [From Unasyn] Sulfa (Sulfonamide Allergy Hives Verified 10/18/16 00:36 Antibiotics) [Sulfa(Sulfonamide Antibiotics)] - Home Medications Home Medications: Ambulatory Orders Diazepam [Valium] 5 mg GT TID 04/23/14 Albuterol Sulfate [Proair Hfa -] 1 - 2 inh PO QID PRN 04/12/15 Methenamine/Sodium Salicylate [Cystex Plus Tablet] 1 each GT DAILY 04/12/15 Heparin - 5,000 unit SQ BID vial 04/25/16 Albuterol 0.083% Nebulizer Jojo [Ventolin 0.083% Nebulizer Soln -] 1 amp NEB TID PRN 08/05/16 Docusate Sodium [Colace -] 300 mg GT HS 08/05/16 Metoclopramide HCl 5 mg GT BID 08/05/16 Polyethylene Glycol 3350 [Miralax 119 gm Btl -] 17 gm GT DAILY PRN 08/05/16 Ranitidine [Zantac -] 150 mg GT BID 08/05/16 Tramadol HCl 50 mg GT Q6H PRN 08/05/16 Bisacodyl [Biscolax] 10 mg RC PRN 09/21/16 Polyethylene Glycol 3350 [Miralax 119 gm Btl -] 17 gm PO DAILY 09/21/16 Family Disease History - Family Disease History Family Disease History: Diabetes: Father (mild cognitive decline), Heart Disease : Father, CA: Mother (, colon cancer), Other: Father Review of Systems - Review of Systems Constitutional: reports: Chills, Fever, Weakness Eyes: denies: Recent Change in Vision HENT: denies: Nasal Congestion, Throat Pain Neck: denies: Stiffness, Tenderness Cardiovascular: reports: Shortness of Breath. denies: Chest Pain, Edema, Palpitations Respiratory: reports: Cough, Hemoptysis, SOB. denies: Wheezing Gastrointestinal: denies: Abdominal Pain, Nausea, Vomiting Genitourinary: denies: Dysuria, Hematuria Neurological: denies: Dizziness, Headache Physical Exam Vital Sings: Vital Signs Temperature 100.5 F H 10/18/16 14:30 Pulse Rate 84 10/18/16 14:30 Respiratory Rate 20 10/18/16 14:30 Blood Pressure 95/62 10/18/16 14:30 O2 Sat by Pulse Oximetry (%) 96 10/18/16 14:00 Constitutional: Yes: Calm Eyes: Yes: Conjunctiva Clear, EOM Intact HENT: Yes: Atraumatic, Normocephalic Neck: Yes: Supple, Trachea Midline Cardiovascular: Yes: Regular Rate and Rhythm Respiratory: Yes: Rhonchi (scattered) ...Clubbing: No Gastrointestinal: Yes: Normal Bowel Sounds, Soft. No: Tenderness Edema: No Neurological: Yes: Alert, Oriented Labs: ABG Results ABG pH 7.44 (7.35-7.45) 10/18/16 07:25 ABG pCO2 at Pt Temp 36.6 mmHg (35-45) D 10/18/16 07:25 ABG pO2 at Pt Temp 92.5 mmHg (80-100) 10/18/16 07:25 ABG HCO3 24.2 meq/L (22-26) 10/18/16 07:25 ABG O2 Sat (Measured) 98.2 % (90-98.9) 10/18/16 07:25 ABG O2 Content 16.6 % vol (15-22) 10/18/16 07:25 ABG Base Excess 1.2 meq/l (-2-2) 10/18/16 07:25 Imaging - Results Chest X-ray: Report Reviewed, Image Reviewed (no infiltrates) Problem List - Problems (1) Pneumonia Code(s): J18.9 - PNEUMONIA, UNSPECIFIED ORGANISM Qualifiers: (2) Aspiration of formula Code(s): P24.30 - ASPIRAT OF MILK AND REGURGITATED FOOD W/O RESP SYMP (3) Hemoptysis Code(s): R04.2 - HEMOPTYSIS (4) Dysphagia Code(s): R13.10 - DYSPHAGIA, UNSPECIFIED (5) Dystonia Code(s): G24.9 - DYSTONIA, UNSPECIFIED (6) HTN (hypertension) Code(s): I10 - ESSENTIAL (PRIMARY) HYPERTENSION Qualifiers: (7) Suprapubic catheter Code(s): Z93.59 - OTHER CYSTOSTOMY STATUS (8) Urinary tract infection Code(s): N39.0 - URINARY TRACT INFECTION, SITE NOT SPECIFIED Qualifiers: Urinary tract infection type: acute cystitis Hematuria presence: without hematuria Qualified Code(s): N30.00 - Acute cystitis without hematuria Assessment/Plan Likely Aspiration Pneumonia from enteral feeds Sepsis Hemoptysis Dystonia Dysphagia HTN - IV antibiotics - f/u cultures - IVF - monitor fever curve, WBC trend - discussed with pt possibility of replacing PEG with J-tube, he is amenable to discussing with a surgeon, will consult surgery - O2 as needed - aspiration precautions - DVT prophylaxis Thank you for this consult Vinod Lauren MD
--- NOTE | 2016-10-18 16:24 | CONSULT ---
Consult Consult Specialty:: infectious diseases Referred by:: Reason for Consultation:: fever,hemoptuysis,aspiration pna - History of Present Illness Chief Complaint: fever,cough History of Present Illness: 61 year old male from [facility] who comes in with hemoptysis. patient well nown to me s doing well since last discharge, however last night he started to cough up blood. 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 (Muscular dystonia since age 21 year) Cardio/Vascular: Yes: HTN Pulmonary: Yes: Asthma, Pneumonia, Sleep Apnea, Other (Cavitary lesion in lung ruled out for TB) Gastrointestinal: Yes: Constipation, GERD, Other (dysphagia) Hepatobiliary: Yes: Other (as noted in medical record.) Renal/: Yes: BPH (s/p thermal prostate procedure), Neurogenic Bladder ( suprapubic tube ), UTI Infectious Disease: Yes: Other (influenza b august 2013) Psych: Yes: Depression Musculoskeletal: Yes: Other (Muscular dystonia) - Past Surgical History Past Surgical History: Yes: Laminectomy (cervical laminectomy with fusion) - Alcohol/Substance Use Hx Alcohol Use: No History of Substance Use: reports: None, Marijuana (years ago. No current use) Date of Last Use: 05/18/78 (estimated) - Smoking History Smoking history: Never smoked Have you smoked in the past 12 months: No Aproximately how many cigarettes per day: 0 - Social History Usual Living Arrangement: Other (Mr. Richard reports that he was born and raised in [place]. He attended several colleges including [employer], [employer], and [employer]. He briefly attended [employer] but discontinued due to financial reasons. 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 In 1986, Mr. Nash was disabled s/p a weightlifting accident that fractured his neck. 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 History of Recent Travel: No Home Medications - Allergies Allergies/Adverse Reactions: Allergies Allergy/AdvReac Type Severity Reaction Status Date / Time iodine Allergy Severe Low Blood Verified 10/18/16 00:36 Pressure kiwi Allergy Intermediate Swelling Verified 10/18/16 00:36 latex Allergy Unknown Swelling Verified 10/18/16 00:36 shellfish derived Allergy Unknown Verified 10/18/16 00:36 ampicillin sodium Allergy Rash Verified 10/18/16 00:36 [From Unasyn] Fish Containing Products Allergy Difficulty Verified 10/18/16 00:36 Breathing Penicillins Allergy Rash Verified 10/18/16 00:36 sulbactam sodium Allergy Rash Verified 10/18/16 00:36 [From Unasyn] Sulfa (Sulfonamide Allergy Hives Verified 10/18/16 00:36 Antibiotics) [Sulfa(Sulfonamide Antibiotics)] - Home Medications Home Medications: Ambulatory Orders Diazepam [Valium] 5 mg GT TID 04/23/14 Albuterol Sulfate [Proair Hfa -] 1 - 2 inh PO QID PRN 04/12/15 Methenamine/Sodium Salicylate [Cystex Plus Tablet] 1 each GT DAILY 04/12/15 Heparin - 5,000 unit SQ BID vial 04/25/16 Albuterol 0.083% Nebulizer Jojo [Ventolin 0.083% Nebulizer Soln -] 1 amp NEB TID PRN 08/05/16 Docusate Sodium [Colace -] 300 mg GT HS 08/05/16 Metoclopramide HCl 5 mg GT BID 08/05/16 Polyethylene Glycol 3350 [Miralax 119 gm Btl -] 17 gm GT DAILY PRN 08/05/16 Ranitidine [Zantac -] 150 mg GT BID 08/05/16 Tramadol HCl 50 mg GT Q6H PRN 08/05/16 Bisacodyl [Biscolax] 10 mg RC PRN 09/21/16 Polyethylene Glycol 3350 [Miralax 119 gm Btl -] 17 gm PO DAILY 09/21/16 Family Disease History - Family Disease History Family Disease History: Diabetes: Father (mild cognitive decline), Heart Disease : Father, CA: Mother (, colon cancer), Other: Father Review of Systems - Review of Systems Constitutional: reports: Fever Eyes: reports: No Symptoms HENT: reports: No Symptoms Neck: reports: No Symptoms Cardiovascular: reports: No Symptoms Respiratory: reports: Cough Gastrointestinal: reports: No Symptoms Genitourinary: reports: No Symptoms Integumentary: reports: No Symptoms Neurological: reports: No Symptoms Endocrine: reports: No Symptoms Hematology/Lymphatic: reports: No Symptoms Psychiatric: reports: No Symptoms Physical Exam Vital Signs: Vital Signs Temperature 100.5 F H 10/18/16 14:30 Pulse Rate 84 10/18/16 14:30 Respiratory Rate 20 10/18/16 14:30 Blood Pressure 95/62 10/18/16 14:30 O2 Sat by Pulse Oximetry (%) 96 10/18/16 14:00 Constitutional: Yes: Calm, Thin Eyes: Yes: Conjunctiva Clear Cardiovascular: Yes: Regular Rate and Rhythm Respiratory: Yes: Rhonchi Gastrointestinal: Yes: Other (fedding tube in place) Musculoskeletal: Yes: WNL Extremities: Yes: Other Neurological: Yes: Alert, Oriented Psychiatric: Yes: Alert, Oriented Imaging - Results Chest X-ray: Report Reviewed, Image Reviewed Cat Scan: Report Reviewed, Image Reviewed Assessment/Plan Problems (1) Cough with hemoptysis Code(s): R04.2 - HEMOPTYSIS (2) Sepsis Code(s): A41.9 - SEPSIS, UNSPECIFIED ORGANISM (3) Pneumonia Code(s): J18.9 - PNEUMONIA, UNSPECIFIED ORGANISM Qualifiers: (4) Dysphagia Code(s): R13.10 - DYSPHAGIA, UNSPECIFIED (5) COPD (chronic obstructive pulmonary disease) Code(s): J44.9 - CHRONIC OBSTRUCTIVE PULMONARY DISEASE, UNSPECIFIED Qualifiers : COPD type: COPD with acute exacerbation Qualified Code(s): J44.1 - Chronic obstructive pulmonary disease with (acute) exacerbation (6) Dystonia Code(s): G24.9 - DYSTONIA, UNSPECIFIED (7) GERD (gastroesophageal reflux disease) Code(s): K21.9 - GASTRO-ESOPHAGEAL REFLUX DISEASE WITHOUT ESOPHAGITIS (8) HTN (hypertension) Code(s): I10 - ESSENTIAL (PRIMARY) HYPERTENSION Qualifiers: plan conitnue abx have to figure out a way to avoid aspiration pul on case rest as per primary
[2016-10-18] MEDS: CEFEPIME 1 GM/100 ML BAG PRE-DOCKED IVPB SCH (17:43)
[2016-10-18] MEDS ORDERED: CLINDAMYCIN HCL 150 MG CAPSULE (FP) PO SCH (18:00)
[2016-10-18] MEDS: RANITIDINE HCL 150 MG/10 ML UNIT-DOSE CUP GT SCH (21:19)
[2016-10-18] MEDS: DOCUSATE NA 100 MG/10 ML UNIT-DOSE CUPS GT SCH (21:19)
[2016-10-18] MEDS: AMINO ACIDS 4.25%/D5W 1,000 ML IV SCH (21:20)
[2016-10-18] MEDS ORDERED: DOCUSATE SODIUM 100 MG CAPSULE (FP) PO SCH (22:00)
[2016-10-19] MEDS: CLINDAMYCIN HCL 150 MG CAPSULE (FP) GT SCH ×4 (01:20→18:02)
[2016-10-19] MEDS: CEFEPIME 1 GM/100 ML BAG PRE-DOCKED IVPB SCH ×3 (01:21→19:05)
[2016-10-19] MEDS: ACETAMINOPHEN 650 MG/20.3 ML ORAL SOLUTION (CUPS) GT PRN (01:22)
[2016-10-19] MEDS: diazePAM 5 MG TABLET GT SCH ×3 (05:52→22:40)
[2016-10-19 06:08] LABS: MCH 33.6 pg (25.7-33.7); MEAN CELL VOLUME 98.8 fl (80-96); PLATELET COUNT 138 K/MM3 (134-434); RDW 12.7 % (11.9-15.9); WHITE BLOOD COUNT 7.8 K/mm3 (4.0-10.0)
[2016-10-19 06:42] LABS: ALBUMIN 2.8 g/dl (3.4-5.0); ANION GAP 10 (8-16); CALCIUM 8.4 mg/dL (8.5-10.1); CO2 24 mmol/L (21-32); COCKROFT - GAULT 104.83; CREATININE 0.5 mg/dL (0.7-1.3); GLUCOSE,RANDOM 106 mg/dL (74-106); SGOT/AST 28 U/L (15-37); SGPT/ALT 35 U/L (12-78)
[2016-10-19 06:47] LABS: ALK PHOS 59 U/L (45-117); BILIRUBIN,TOTAL 0.5 mg/dL (0.2-1.0); TOT PROT 5.7 g/dl (6.4-8.2)
[2016-10-19] MEDS: AMINO ACIDS 4.25%/D5W 1,000 ML IV SCH ×2 (06:54→23:17)
[2016-10-19 08:46] LABS: METAMYELOCYTE 2 % (0-2)
[2016-10-19 08:47] LABS: PLATELET ESTIMATE DECREASED (NORMAL)
--- NOTE | 2016-10-19 10:12 | CONSULT ---
Consult Consult Specialty:: surgery Reason for Consultation:: j tube? - History of Present Illness Chief Complaint: aspiration? History of Present Illness: pt is a 61M with muscular dystonia req PEG in 04/17/[address] Matthew Santana. He comes in with suspected aspiration. I am consulted for poss J tube to reduce risk of aspiration. 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 (Muscular dystonia since age 21 year) Cardio/Vascular: Yes: HTN Pulmonary: Yes: Asthma, Pneumonia, Sleep Apnea, Other (Cavitary lesion in lung ruled out for TB) Gastrointestinal: Yes: Constipation, GERD, Other (dysphagia) Hepatobiliary: Yes: Other (as noted in medical record.) Renal/: Yes: BPH (s/p thermal prostate procedure), Neurogenic Bladder ( suprapubic tube ), UTI Infectious Disease: Yes: Other (influenza b august 2013) Psych: Yes: Depression Musculoskeletal: Yes: Other (Muscular dystonia) - Past Surgical History Past Surgical History: Yes: Laminectomy (cervical laminectomy with fusion) - Alcohol/Substance Use Hx Alcohol Use: No History of Substance Use: reports: None, Marijuana (years ago. No current use) Date of Last Use: 05/18/78 (estimated) - Smoking History Smoking history: Never smoked Have you smoked in the past 12 months: No Aproximately how many cigarettes per day: 0 - Social History Usual Living Arrangement: Other (Mr. Richard reports that he was born and raised in [place]. He attended several colleges including [employer], [employer], and [employer]. He briefly attended [employer] but discontinued due to financial reasons. 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 In 1986, Mr. Nash was disabled s/p a weightlifting accident that fractured his neck. 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 History of Recent Travel: No Home Medications - Allergies Allergies/Adverse Reactions: Allergies Allergy/AdvReac Type Severity Reaction Status Date / Time iodine Allergy Severe Low Blood Verified 10/18/16 00:36 Pressure kiwi Allergy Intermediate Swelling Verified 10/18/16 00:36 latex Allergy Unknown Swelling Verified 10/18/16 00:36 shellfish derived Allergy Unknown Verified 10/18/16 00:36 ampicillin sodium Allergy Rash Verified 10/18/16 00:36 [From Unasyn] Fish Containing Products Allergy Difficulty Verified 10/18/16 00:36 Breathing Penicillins Allergy Rash Verified 10/18/16 00:36 sulbactam sodium Allergy Rash Verified 10/18/16 00:36 [From Unasyn] Sulfa (Sulfonamide Allergy Hives Verified 10/18/16 00:36 Antibiotics) [Sulfa(Sulfonamide Antibiotics)] - Home Medications Home Medications: Ambulatory Orders Diazepam [Valium] 5 mg GT TID 04/23/14 Albuterol Sulfate [Proair Hfa -] 1 - 2 inh PO QID PRN 04/12/15 Methenamine/Sodium Salicylate [Cystex Plus Tablet] 1 each GT DAILY 04/12/15 Heparin - 5,000 unit SQ BID vial 04/25/16 Albuterol 0.083% Nebulizer Jojo [Ventolin 0.083% Nebulizer Soln -] 1 amp NEB TID PRN 08/05/16 Docusate Sodium [Colace -] 300 mg GT HS 08/05/16 Metoclopramide HCl 5 mg GT BID 08/05/16 Polyethylene Glycol 3350 [Miralax 119 gm Btl -] 17 gm GT DAILY PRN 08/05/16 Ranitidine [Zantac -] 150 mg GT BID 08/05/16 Tramadol HCl 50 mg GT Q6H PRN 08/05/16 Bisacodyl [Biscolax] 10 mg RC PRN 09/21/16 Polyethylene Glycol 3350 [Miralax 119 gm Btl -] 17 gm PO DAILY 09/21/16 Family Disease History - Family Disease History Family Disease History: Diabetes: Father (mild cognitive decline), Heart Disease : Father, CA: Mother (, colon cancer), Other: Father Review of Systems - Review of Systems Constitutional: reports: Fever Eyes: denies: Blind Spots, Blurred Vision HENT: reports: Difficult Swallowing Neck: reports: Decreased ROM Cardiovascular: denies: Chest Pain, Edema Respiratory: reports: Cough, SOB Gastrointestinal: denies: Abdominal Pain Genitourinary: denies: Burning, Discharge Musculoskeletal: reports: Muscle Weakness Integumentary: denies: Rash Neurological: reports: Weakness Endocrine: denies: Excessive Sweating, Flushing Hematology/Lymphatic: denies: Easily Bruised, Excessive Bleeding Psychiatric: denies: Altered Sleep Pattern Physical Exam Vital Signs: Vital Signs Temperature 98.0 F 10/19/16 05:46 Pulse Rate 79 10/19/16 05:46 Respiratory Rate 20 10/19/16 05:46 Blood Pressure 93/43 10/19/16 05:46 O2 Sat by Pulse Oximetry (%) 96 10/18/16 20:50 Constitutional: Yes: No Distress, Calm Eyes: Yes: Conjunctiva Clear HENT: Yes: Atraumatic, Normocephalic Neck: Yes: Supple, Trachea Midline Cardiovascular: Yes: Regular Rate and Rhythm Gastrointestinal: Yes: Soft, Other (PEG in place). No: Distention, Tenderness ...Rectal Exam: Yes: Deferred Renal/: No: CVA Tenderness - Left, CVA Tenderness - Right Musculoskeletal: Yes: Muscle Weakness Extremities: No: Calf Tenderness, Erythema Integumentary: No: Erythema, Rash Neurological: Yes: Alert, Other (speech is impaired) Psychiatric: Yes: Alert Labs: CBC, BMP 10/19/16 05:35 10/19/16 05:35 Problem List - Problems (1) Dysphagia Assessment/Plan: patient has PEG already. consider reconsult GI (Dr. Santana) for PEG-J? with already established PEG access hopefully we can avoid another procedure. PEJ is also option with IR help? patient refuses open jejunostomy tube. Code(s): R13.10 - DYSPHAGIA, UNSPECIFIED
[2016-10-19] MEDS ORDERED: ACETAMINOPHEN 1000 MG/100 ML VIAL (NON FORMULARY) IVPB ONE (10:20)
[2016-10-19] MEDS: RANITIDINE HCL 150 MG/10 ML UNIT-DOSE CUP GT SCH ×2 (10:30→22:40)
[2016-10-19] MEDS: HEPARIN NA (PORCINE) 5,000 UNITS/ML 1ML VIAL SQ SCH ×3 (10:30→22:40)
[2016-10-19] MEDS: PANTOPRAZOLE SOD 40 MG SUSPENSION PACKET GT SCH (10:30)
--- NOTE | 2016-10-19 12:34 | PN ---
Progress Note, Physician History of Present Illness: pulmonry alert,weak,-resp distress,+ cough,-hemoptysis - Current Medication List Current Medications: Active Medications Acetaminophen (Tylenol Oral Solution -) 650 mg GT Q6H PRN PRN Reason: FEVER OR PAIN Last Admin: 10/19/16 01:22 Dose: 650 mg Albuterol Sulfate (Ventolin 0.083% Nebulizer Soln -) 1 amp NEB TID PRN PRN Reason: SHORT OF BREATH/WHEEZING Bisacodyl (Dulcolax Suppository -) 10 mg RC PRN PRN Cefepime HCl (Maxipime 1gm Ivpb Pre-Docked) 1 gm IVPB Q8H-IV [facility] PRN Reason: Protocol Last Admin: 10/19/16 10:30 Dose: 1 gm Clindamycin HCl (Cleocin -) 300 mg GT Q6HPO [facility] Last Admin: 10/19/16 12:17 Dose: Not Given Diazepam (Valium -) 5 mg GT TID [facility] Last Admin: 10/19/16 05:52 Dose: 5 mg Docusate Sodium (Colace Liquid -) 300 mg GT HS [facility] Last Admin: 10/18/16 21:19 Dose: 300 mg Heparin Sodium (Porcine) (Heparin -) 5,000 unit SQ BID [facility] Last Admin: 10/19/16 10:30 Dose: 5,000 unit Amino Acids (Clinimix -) 1,000 mls @ 100 mls/hr IV ASDIR [facility] Last Admin: 10/19/16 06:54 Dose: 100 mls/hr Ibuprofen (Caldolor Injection -) 800 mg IVPB ONCE ONE Stop: 10/19/16 12:46 Ondansetron HCl (Zofran Injection) 4 mg IVPB Q6H PRN PRN Reason: NAUSEA Last Admin: 10/18/16 11:29 Dose: 4 mg Pantoprazole Sodium (Protonix Packets For Oral Suspension -) 40 mg GT DAILY [facility] Last Admin: 10/19/16 10:30 Dose: 40 mg Polyethylene Glycol (Miralax (For Daily Use) -) 17 gm GT DAILY PRN PRN Reason: CONSTIPATION Ranitidine HCl (Zantac Oral Solution -) 150 mg GT BID [facility] Last Admin: 10/19/16 10:30 Dose: 150 mg Tramadol HCl (Ultram -) 50 mg PEG Q6H PRN PRN Reason: PAIN - Objective Vital Signs: Vital Signs Temperature 98.0 F 10/19/16 05:46 Pulse Rate 79 10/19/16 05:46 Respiratory Rate 20 10/19/16 05:46 Blood Pressure 93/43 10/19/16 05:46 O2 Sat by Pulse Oximetry (%) 96 10/18/16 20:50 Constitutional: Yes: Calm, Thin Eyes: Yes: WNL HENT: Yes: WNL Neck: Yes: WNL Cardiovascular: Yes: Regular Rate and Rhythm, S1, S2 Respiratory: Yes: Rhonchi (scattered jacquelyn rhonchi) Gastrointestinal: Yes: Normal Bowel Sounds, Soft, Other (+gt) Extremities: Yes: WNL Edema: No Labs: CBC, BMP 10/19/16 05:35 10/19/16 05:35 INR, PTT INR 1.24 (0.82-1.09) H 10/18/16 00:57 Assessment/Plan Problem List - Problems (1) Pneumonia Code(s): J18.9 - PNEUMONIA, UNSPECIFIED ORGANISM Qualifiers: (2) Aspiration of formula Code(s): P24.30 - ASPIRAT OF MILK AND REGURGITATED FOOD W/O RESP SYMP (3) Hemoptysis Code(s): R04.2 - HEMOPTYSIS (4) Dysphagia Code(s): R13.10 - DYSPHAGIA, UNSPECIFIED (5) Dystonia Code(s): G24.9 - DYSTONIA, UNSPECIFIED (6) HTN (hypertension) Code(s): I10 - ESSENTIAL (PRIMARY) HYPERTENSION Qualifiers: (7) Suprapubic catheter Code(s): Z93.59 - OTHER CYSTOSTOMY STATUS (8) Urinary tract infection Code(s): N39.0 - URINARY TRACT INFECTION, SITE NOT SPECIFIED Qualifiers: Urinary tract infection type: acute cystitis Hematuria presence: without hematuria Qualified Code(s): N30.00 - Acute cystitis without hematuria Assessment/Plan Likely Aspiration Pneumonia from enteral feeds Sepsis Hemoptysis Dystonia Dysphagia HTN - IV antibiotics as per ID - IVF - monitor fever curve, WBC trend - discussed with pt possibility of replacing PEG with J-tube, he is amenable to discussing with a surgeon, will consult surgery - O2 as needed - aspiration precautions - DVT prophylaxis DR MURDOCK
[2016-10-19] MEDS ORDERED: IBUPROFEN 800 MG/8 ML IJ IVPB ONE ×2 (12:45→16:58)
--- NOTE | 2016-10-19 13:36 | PN ---
Progress Note, Physician History of Present Illness: feels better spiked a fever - Current Medication List Current Medications: Active Medications Acetaminophen (Tylenol Oral Solution -) 650 mg GT Q6H PRN PRN Reason: FEVER OR PAIN Last Admin: 10/19/16 01:22 Dose: 650 mg Albuterol Sulfate (Ventolin 0.083% Nebulizer Soln -) 1 amp NEB TID PRN PRN Reason: SHORT OF BREATH/WHEEZING Bisacodyl (Dulcolax Suppository -) 10 mg RC PRN PRN Cefepime HCl (Maxipime 1gm Ivpb Pre-Docked) 1 gm IVPB Q8H-IV [facility] PRN Reason: Protocol Last Admin: 10/19/16 10:30 Dose: 1 gm Clindamycin HCl (Cleocin -) 300 mg GT Q6HPO [facility] Last Admin: 10/19/16 12:17 Dose: Not Given Diazepam (Valium -) 5 mg GT TID [facility] Last Admin: 10/19/16 05:52 Dose: 5 mg Docusate Sodium (Colace Liquid -) 300 mg GT HS [facility] Last Admin: 10/18/16 21:19 Dose: 300 mg Heparin Sodium (Porcine) (Heparin -) 5,000 unit SQ BID [facility] Last Admin: 10/19/16 10:30 Dose: 5,000 unit Amino Acids (Clinimix -) 1,000 mls @ 100 mls/hr IV ASDIR [facility] Last Admin: 10/19/16 06:54 Dose: 100 mls/hr Ondansetron HCl (Zofran Injection) 4 mg IVPB Q6H PRN PRN Reason: NAUSEA Last Admin: 10/18/16 11:29 Dose: 4 mg Pantoprazole Sodium (Protonix Packets For Oral Suspension -) 40 mg GT DAILY [facility] Last Admin: 10/19/16 10:30 Dose: 40 mg Polyethylene Glycol (Miralax (For Daily Use) -) 17 gm GT DAILY PRN PRN Reason: CONSTIPATION Ranitidine HCl (Zantac Oral Solution -) 150 mg GT BID [facility] Last Admin: 10/19/16 10:30 Dose: 150 mg Tramadol HCl (Ultram -) 50 mg PEG Q6H PRN PRN Reason: PAIN - Objective Vital Signs: Vital Signs Temperature 98.0 F 10/19/16 05:46 Pulse Rate 79 10/19/16 05:46 Respiratory Rate 20 10/19/16 05:46 Blood Pressure 93/43 10/19/16 05:46 O2 Sat by Pulse Oximetry (%) 96 10/18/16 20:50 Constitutional: Yes: No Distress, Calm Respiratory: Yes: Poor Air Entry, Rhonchi Gastrointestinal: Yes: Normal Bowel Sounds, Soft, Other (feeding tube in place) Genitourinary: Yes: Bagley Present Musculoskeletal: Yes: Other Extremities: Yes: Other Neurological: Yes: Alert, Oriented Psychiatric: Yes: Alert Labs: CBC, BMP 10/19/16 05:35 10/19/16 05:35 INR, PTT INR 1.24 (0.82-1.09) H 10/18/16 00:57 Assessment/Plan Problems (1) Cough with hemoptysis Code(s): R04.2 - HEMOPTYSIS (2) Sepsis Code(s): A41.9 - SEPSIS, UNSPECIFIED ORGANISM (3) Pneumonia Code(s): J18.9 - PNEUMONIA, UNSPECIFIED ORGANISM Qualifiers: (4) Dysphagia Code(s): R13.10 - DYSPHAGIA, UNSPECIFIED (5) COPD (chronic obstructive pulmonary disease) Code(s): J44.9 - CHRONIC OBSTRUCTIVE PULMONARY DISEASE, UNSPECIFIED Qualifiers : COPD type: COPD with acute exacerbation Qualified Code(s): J44.1 - Chronic obstructive pulmonary disease with (acute) exacerbation (6) Dystonia Code(s): G24.9 - DYSTONIA, UNSPECIFIED (7) GERD (gastroesophageal reflux disease) Code(s): K21.9 - GASTRO-ESOPHAGEAL REFLUX DISEASE WITHOUT ESOPHAGITIS (8) HTN (hypertension) Code(s): I10 - ESSENTIAL (PRIMARY) HYPERTENSION Qualifiers: uti plan conitnue abx all cx noted might have to start coverage of enero in urine await for final identification of the organism in the urine rest ct current mgmt
--- NOTE | 2016-10-19 14:53 | PN ---
Progress Note, Physician Chief Complaint: Mr Nash says he is not feeling well. Feeling very feverish. Hemoptysis improved. Has cramping pain when using g-tube. Shortness of breath improving. No cp or n/v. - Current Medication List Current Medications: Active Medications Acetaminophen (Tylenol Oral Solution -) 650 mg GT Q6H PRN PRN Reason: FEVER OR PAIN Last Admin: 10/19/16 01:22 Dose: 650 mg Albuterol Sulfate (Ventolin 0.083% Nebulizer Soln -) 1 amp NEB TID PRN PRN Reason: SHORT OF BREATH/WHEEZING Bisacodyl (Dulcolax Suppository -) 10 mg RC PRN PRN Cefepime HCl (Maxipime 1gm Ivpb Pre-Docked) 1 gm IVPB Q8H-IV [facility] PRN Reason: Protocol Last Admin: 10/19/16 10:30 Dose: 1 gm Clindamycin HCl (Cleocin -) 300 mg GT Q6HPO [facility] Last Admin: 10/19/16 12:17 Dose: Not Given Diazepam (Valium -) 5 mg GT TID [facility] Last Admin: 10/19/16 05:52 Dose: 5 mg Docusate Sodium (Colace Liquid -) 300 mg GT HS [facility] Last Admin: 10/18/16 21:19 Dose: 300 mg Heparin Sodium (Porcine) (Heparin -) 5,000 unit SQ BID [facility] Last Admin: 10/19/16 10:30 Dose: 5,000 unit Amino Acids (Clinimix -) 1,000 mls @ 100 mls/hr IV ASDIR [facility] Last Admin: 10/19/16 06:54 Dose: 100 mls/hr Ondansetron HCl (Zofran Injection) 4 mg IVPB Q6H PRN PRN Reason: NAUSEA Last Admin: 10/18/16 11:29 Dose: 4 mg Pantoprazole Sodium (Protonix Packets For Oral Suspension -) 40 mg GT DAILY [facility] Last Admin: 10/19/16 10:30 Dose: 40 mg Polyethylene Glycol (Miralax (For Daily Use) -) 17 gm GT DAILY PRN PRN Reason: CONSTIPATION Ranitidine HCl (Zantac Oral Solution -) 150 mg GT BID [facility] Last Admin: 10/19/16 10:30 Dose: 150 mg Tramadol HCl (Ultram -) 50 mg PEG Q6H PRN PRN Reason: PAIN - Objective Vital Signs: Vital Signs Temperature 98.0 F 10/19/16 05:46 Pulse Rate 79 10/19/16 05:46 Respiratory Rate 20 10/19/16 05:46 Blood Pressure 93/43 10/19/16 05:46 O2 Sat by Pulse Oximetry (%) 96 10/18/16 20:50 Constitutional: Yes: No Distress, Calm, Thin Cardiovascular: Yes: Regular Rate and Rhythm. No: Gallop, Murmur, Rub Respiratory: Yes: Regular, Rhonchi. No: Rales, Wheezes Gastrointestinal: Yes: Normal Bowel Sounds, Soft. No: Distention, Tenderness Extremities: Yes: WNL Edema: No Labs: CBC, BMP 10/19/16 05:35 10/19/16 05:35 INR, PTT INR 1.24 (0.82-1.09) H 10/18/16 00:57 Problem List - Problems (1) Cough with hemoptysis Code(s): R04.2 - HEMOPTYSIS (2) Sepsis Code(s): A41.9 - SEPSIS, UNSPECIFIED ORGANISM (3) Pneumonia Code(s): J18.9 - PNEUMONIA, UNSPECIFIED ORGANISM Qualifiers: (4) Dysphagia Code(s): R13.10 - DYSPHAGIA, UNSPECIFIED (5) COPD (chronic obstructive pulmonary disease) Code(s): J44.9 - CHRONIC OBSTRUCTIVE PULMONARY DISEASE, UNSPECIFIED Qualifiers : COPD type: COPD with acute exacerbation Qualified Code(s): J44.1 - Chronic obstructive pulmonary disease with (acute) exacerbation (6) Dystonia Code(s): G24.9 - DYSTONIA, UNSPECIFIED (7) GERD (gastroesophageal reflux disease) Code(s): K21.9 - GASTRO-ESOPHAGEAL REFLUX DISEASE WITHOUT ESOPHAGITIS (8) HTN (hypertension) Code(s): I10 - ESSENTIAL (PRIMARY) HYPERTENSION Qualifiers: Assessment/Plan (1) Cough with hemoptysis Assessment/Plan: -appreciate ID and pulmonary assistance -secondary to reflux with aspiration -continue antibiotics Code(s): R04.2 - HEMOPTYSIS (2) Sepsis Assessment/Plan: -hydration with IVF -still febrile, control with IV tylenol and motrin -continue antibiotics Code(s): A41.9 - SEPSIS, UNSPECIFIED ORGANISM (3) Pneumonia Assessment/Plan: -CT scan reviewed -secondary to aspiration -continue clindamycin and cefepime -ID following Code(s): J18.9 - PNEUMONIA, UNSPECIFIED ORGANISM Qualifiers: (4) Dysphagia Assessment/Plan: -g-tube showing aspiration -prefers bolus feeds and will not sit up straight with tube feeds -j-tube discussed, patient declined for unclear reasons -GI to evaluate for other options Code(s): R13.10 - DYSPHAGIA, UNSPECIFIED (5) COPD (chronic obstructive pulmonary disease) Assessment/Plan: -secondary to pneumonia/aspiration -pulmonary following -continue home regimen Code(s): J44.9 - CHRONIC OBSTRUCTIVE PULMONARY DISEASE, UNSPECIFIED Qualifiers : COPD type: COPD with acute exacerbation Qualified Code(s): J44.1 - Chronic obstructive pulmonary disease with (acute) exacerbation (6) Dystonia Assessment/Plan: -continue home regimen Code(s): G24.9 - DYSTONIA, UNSPECIFIED (7) GERD (gastroesophageal reflux disease) Assessment/Plan: -continue protonix Code(s): K21.9 - GASTRO-ESOPHAGEAL REFLUX DISEASE WITHOUT ESOPHAGITIS (8) HTN (hypertension) Assessment/Plan: -well controlled Code(s): I10 - ESSENTIAL (PRIMARY) HYPERTENSION Qualifiers: (9) Depression -discussed with patient about goals of care -says he has been going through this for 30 years and is getting tired -asked about hospice care -will consult psychiatry to evaluate for depression -consult palliative care as well
--- NOTE | 2016-10-19 17:57 | CON.PSY ---
Psychiatry Consult Chief Complaint: I feel depressed but I dont want any medicine. they make me sick. patient reports he hjad been on REMERON. It made him sick. Symptoms: reports: Depressed Mood, Anxiety - Previous Psychiatric Treatment Outpatient: None Inpatient: None - Previous Substance Abuse Treatment Outpatient: None Inpatient: None - Current Medications Current Medications: Active Medications Acetaminophen (Tylenol Oral Solution -) 650 mg GT Q6H PRN PRN Reason: FEVER OR PAIN Last Admin: 10/19/16 01:22 Dose: 650 mg Albuterol Sulfate (Ventolin 0.083% Nebulizer Soln -) 1 amp NEB TID PRN PRN Reason: SHORT OF BREATH/WHEEZING Bisacodyl (Dulcolax Suppository -) 10 mg RC PRN PRN Cefepime HCl (Maxipime 1gm Ivpb Pre-Docked) 1 gm IVPB Q8H-IV [facility] PRN Reason: Protocol Last Admin: 10/19/16 10:30 Dose: 1 gm Clindamycin HCl (Cleocin -) 300 mg GT Q6HPO [facility] Last Admin: 10/19/16 12:17 Dose: Not Given Diazepam (Valium -) 5 mg GT TID [facility] Last Admin: 10/19/16 16:21 Dose: Not Given Docusate Sodium (Colace Liquid -) 300 mg GT HS [facility] Last Admin: 10/18/16 21:19 Dose: 300 mg Heparin Sodium (Porcine) (Heparin -) 5,000 unit SQ BID [facility] Last Admin: 10/19/16 10:30 Dose: 5,000 unit Amino Acids (Clinimix -) 1,000 mls @ 100 mls/hr IV ASDIR [facility] Last Admin: 10/19/16 06:54 Dose: 100 mls/hr Ondansetron HCl (Zofran Injection) 4 mg IVPB Q6H PRN PRN Reason: NAUSEA Last Admin: 10/18/16 11:29 Dose: 4 mg Pantoprazole Sodium (Protonix Packets For Oral Suspension -) 40 mg GT DAILY [facility] Last Admin: 10/19/16 10:30 Dose: 40 mg Polyethylene Glycol (Miralax (For Daily Use) -) 17 gm GT DAILY PRN PRN Reason: CONSTIPATION Ranitidine HCl (Zantac Oral Solution -) 150 mg GT BID [facility] Last Admin: 10/19/16 10:30 Dose: 150 mg Tramadol HCl (Ultram -) 50 mg PEG Q6H PRN PRN Reason: PAIN - Allergies Allergies: Allergies Allergy/AdvReac Type Severity Reaction Status Date / Time iodine Allergy Severe Low Blood Verified 10/18/16 00:36 Pressure kiwi Allergy Intermediate Swelling Verified 10/18/16 00:36 latex Allergy Unknown Swelling Verified 10/18/16 00:36 shellfish derived Allergy Unknown Verified 10/18/16 00:36 ampicillin sodium Allergy Rash Verified 10/18/16 00:36 [From Unasyn] Fish Containing Products Allergy Difficulty Verified 10/18/16 00:36 Breathing Penicillins Allergy Rash Verified 10/18/16 00:36 sulbactam sodium Allergy Rash Verified 10/18/16 00:36 [From Unasyn] Sulfa (Sulfonamide Allergy Hives Verified 10/18/16 00:36 Antibiotics) [Sulfa(Sulfonamide Antibiotics)] - Current Living Status Usual Living Arrangement: [facility] - Current Mental Status Evaluation Appearance: Well Groomed Attitude: Cooperative - Affect Affect: Constrictive Appropriateness: Appropriate to Content - Mood Mood: Anxious - Speech/Language Expressive: Coherent - Psychomotor Activity Psychomotor Activity: Slowed - Thought Process Thought Process: Intact - Thought Content Hallucinations: Absent Delusions: Absent - Self Perception Self Perception: No Impairment - Cognition Attention: Alert Memory, Short Term: 2/3 Memory, Remote with Promptin/3 - Concentration Serial Sevens Intact: No Simple Calculations Intact: No - Abstraction Proverb Interpretation: Intact Judgement: Minimally Impaired - Insight Insight: Intact - Impulse Control Impulse Control: Minimally Impaired - Suicidal Ideation Suicidal Ideation: No - Homicidal Ideation Homicidal Ideation: No Assessment/Plan 1) continue with valium. 2) Patient refusing any antidepressant.
[2016-10-19] MEDS ORDERED: PT OWN MED DRAWER 7, Y5N ONE ×2 (18:07→22:21)
[2016-10-19] MEDS: DOCUSATE NA 100 MG/10 ML UNIT-DOSE CUPS GT SCH (22:40)
[2016-10-20] MEDS: ACETAMINOPHEN 650 MG/20.3 ML ORAL SOLUTION (CUPS) GT PRN ×2 (01:15→11:47)
[2016-10-20] MEDS: CLINDAMYCIN HCL 150 MG CAPSULE (FP) GT SCH ×2 (01:15→05:52)
[2016-10-20] MEDS: CEFEPIME 1 GM/100 ML BAG PRE-DOCKED IVPB SCH ×2 (01:16→11:03)
[2016-10-20] MEDS: diazePAM 5 MG TABLET GT SCH ×3 (05:53→21:07)
[2016-10-20 07:16] LABS: MCHC 34.4 g/dl (32.0-35.9); MEAN CELL VOLUME 98.9 fl (80-96); MEAN PLT VOLUME 8.6 fl (7.5-11.1); PLATELET COUNT 129 K/MM3 (134-434); RDW 12.8 % (11.9-15.9); WHITE BLOOD COUNT 4.5 K/mm3 (4.0-10.0)
[2016-10-20 08:02] LABS: METAMYELOCYTE 1 % (0-2)
[2016-10-20 08:03] LABS: PLATELET ESTIMATE SLT DECREASED (NORMAL)
[2016-10-20 08:30] LABS: COCKROFT - GAULT 87.35; CREATININE 0.6 mg/dL (0.7-1.3); MAGNESIUM 2.1 mg/dL (1.8-2.4); PHOSPHOROUS 2.5 mg/dL (2.5-4.9)
--- NOTE | 2016-10-20 10:44 | PN ---
Progress Note, Physician Chief Complaint: Mr Nash is still having a cough with thick sputum but it is lessening and no longer hemoptysis. No cp or n/v. - Current Medication List Current Medications: Active Medications Acetaminophen (Tylenol Oral Solution -) 650 mg GT Q6H PRN PRN Reason: FEVER OR PAIN Last Admin: 10/20/16 01:15 Dose: 650 mg Albuterol Sulfate (Ventolin 0.083% Nebulizer Soln -) 1 amp NEB TID PRN PRN Reason: SHORT OF BREATH/WHEEZING Bisacodyl (Dulcolax Suppository -) 10 mg RC PRN PRN Cefepime HCl (Maxipime 1gm Ivpb Pre-Docked) 1 gm IVPB Q8H-IV ESVIN PRN Reason: Protocol Last Admin: 10/20/16 01:16 Dose: 1 gm Clindamycin HCl (Cleocin -) 300 mg GT Q6HPO [facility] Last Admin: 10/20/16 05:52 Dose: 300 mg Diazepam (Valium -) 5 mg GT TID [facility] Last Admin: 10/20/16 05:53 Dose: 5 mg Docusate Sodium (Colace Liquid -) 300 mg GT HS [facility] Last Admin: 10/19/16 22:40 Dose: 300 mg Heparin Sodium (Porcine) (Heparin -) 5,000 unit SQ BID [facility] Last Admin: 10/19/16 22:40 Dose: Not Given Amino Acids (Clinimix -) 1,000 mls @ 100 mls/hr IV ASDIR [facility] Last Admin: 10/19/16 23:17 Dose: 100 mls/hr Ondansetron HCl (Zofran Injection) 4 mg IVPB Q6H PRN PRN Reason: NAUSEA Last Admin: 10/18/16 11:29 Dose: 4 mg Pantoprazole Sodium (Protonix Packets For Oral Suspension -) 40 mg GT DAILY [facility] Last Admin: 10/19/16 10:30 Dose: 40 mg Polyethylene Glycol (Miralax (For Daily Use) -) 17 gm GT DAILY PRN PRN Reason: CONSTIPATION Ranitidine HCl (Zantac Oral Solution -) 150 mg GT BID [facility] Last Admin: 10/19/16 22:40 Dose: 150 mg Tramadol HCl (Ultram -) 50 mg PEG Q6H PRN PRN Reason: PAIN - Objective Vital Signs: Vital Signs Temperature 100.1 F H 10/20/16 05:55 Pulse Rate 89 10/20/16 05:55 Respiratory Rate 20 10/20/16 05:55 Blood Pressure 90/52 10/20/16 05:55 O2 Sat by Pulse Oximetry (%) 96 10/19/16 22:00 Constitutional: Yes: No Distress, Calm, Thin Cardiovascular: Yes: Regular Rate and Rhythm. No: Gallop, Murmur, Rub Respiratory: Yes: Regular, Rhonchi. No: Rales, Wheezes Gastrointestinal: Yes: Normal Bowel Sounds, Soft. No: Distention, Tenderness Extremities: Yes: WNL Edema: No Labs: CBC, BMP 10/20/16 06:00 10/20/16 06:00 INR, PTT INR 1.24 (0.82-1.09) H 10/18/16 00:57 Problem List - Problems (1) Cough with hemoptysis Code(s): R04.2 - HEMOPTYSIS (2) Sepsis Code(s): A41.9 - SEPSIS, UNSPECIFIED ORGANISM (3) Pneumonia Code(s): J18.9 - PNEUMONIA, UNSPECIFIED ORGANISM Qualifiers: (4) Dysphagia Code(s): R13.10 - DYSPHAGIA, UNSPECIFIED (5) COPD (chronic obstructive pulmonary disease) Code(s): J44.9 - CHRONIC OBSTRUCTIVE PULMONARY DISEASE, UNSPECIFIED Qualifiers : COPD type: COPD with acute exacerbation Qualified Code(s): J44.1 - Chronic obstructive pulmonary disease with (acute) exacerbation (6) Dystonia Code(s): G24.9 - DYSTONIA, UNSPECIFIED (7) GERD (gastroesophageal reflux disease) Code(s): K21.9 - GASTRO-ESOPHAGEAL REFLUX DISEASE WITHOUT ESOPHAGITIS (8) HTN (hypertension) Code(s): I10 - ESSENTIAL (PRIMARY) HYPERTENSION Qualifiers: Assessment/Plan (1) Cough with hemoptysis Assessment/Plan: -appreciate ID and pulmonary assistance -secondary to reflux with aspiration -continue antibiotics -hemoptysis resolving Code(s): R04.2 - HEMOPTYSIS (2) Sepsis Assessment/Plan: -hydration with IVF -temperature improving -continue antibiotics per ID Code(s): A41.9 - SEPSIS, UNSPECIFIED ORGANISM (3) Pneumonia Assessment/Plan: -ID following -continue cefepime and clindamycin Code(s): J18.9 - PNEUMONIA, UNSPECIFIED ORGANISM Qualifiers: (4) Dysphagia Assessment/Plan: -g-tube showing aspiration -GI consulted Code(s): R13.10 - DYSPHAGIA, UNSPECIFIED (5) COPD (chronic obstructive pulmonary disease) Assessment/Plan: -secondary to pneumonia/aspiration -pulmonary following -continue home regimen Code(s): J44.9 - CHRONIC OBSTRUCTIVE PULMONARY DISEASE, UNSPECIFIED Qualifiers : COPD type: COPD with acute exacerbation Qualified Code(s): J44.1 - Chronic obstructive pulmonary disease with (acute) exacerbation (6) Dystonia Assessment/Plan: -continue home regimen Code(s): G24.9 - DYSTONIA, UNSPECIFIED (7) GERD (gastroesophageal reflux disease) Assessment/Plan: -continue protonix Code(s): K21.9 - GASTRO-ESOPHAGEAL REFLUX DISEASE WITHOUT ESOPHAGITIS (8) HTN (hypertension) Assessment/Plan: -well controlled Code(s): I10 - ESSENTIAL (PRIMARY) HYPERTENSION Qualifiers: (9) Depression -appreciate psychiatry evaluation
[2016-10-20] MEDS: HEPARIN NA (PORCINE) 5,000 UNITS/ML 1ML VIAL SQ SCH ×2 (11:03→21:06)
[2016-10-20] MEDS: RANITIDINE HCL 150 MG/10 ML UNIT-DOSE CUP GT SCH ×2 (11:04→21:07)
[2016-10-20] MEDS: PANTOPRAZOLE SOD 40 MG SUSPENSION PACKET GT SCH (11:04)
--- NOTE | 2016-10-20 11:10 | PN ---
Progress Note, Physician History of Present Illness: patient does not feel well still spiking fevers high as 103 - Current Medication List Current Medications: Active Medications Acetaminophen (Tylenol Oral Solution -) 650 mg GT Q6H PRN PRN Reason: FEVER OR PAIN Last Admin: 10/20/16 01:15 Dose: 650 mg Albuterol Sulfate (Ventolin 0.083% Nebulizer Soln -) 1 amp NEB TID PRN PRN Reason: SHORT OF BREATH/WHEEZING Bisacodyl (Dulcolax Suppository -) 10 mg RC PRN PRN Diazepam (Valium -) 5 mg GT TID [facility] Last Admin: 10/20/16 05:53 Dose: 5 mg Docusate Sodium (Colace Liquid -) 300 mg GT HS [facility] Last Admin: 10/19/16 22:40 Dose: 300 mg Heparin Sodium (Porcine) (Heparin -) 5,000 unit SQ BID [facility] Last Admin: 10/20/16 11:03 Dose: 5,000 unit Amino Acids (Clinimix -) 1,000 mls @ 100 mls/hr IV ASDIR [facility] Last Admin: 10/19/16 23:17 Dose: 100 mls/hr Ondansetron HCl (Zofran Injection) 4 mg IVPB Q6H PRN PRN Reason: NAUSEA Last Admin: 10/18/16 11:29 Dose: 4 mg Pantoprazole Sodium (Protonix Packets For Oral Suspension -) 40 mg GT DAILY [facility] Last Admin: 10/20/16 11:04 Dose: 40 mg Polyethylene Glycol (Miralax (For Daily Use) -) 17 gm GT DAILY PRN PRN Reason: CONSTIPATION Ranitidine HCl (Zantac Oral Solution -) 150 mg GT BID [facility] Last Admin: 10/20/16 11:04 Dose: 150 mg Tramadol HCl (Ultram -) 50 mg PEG Q6H PRN PRN Reason: PAIN - Objective Vital Signs: Vital Signs Temperature 100.1 F H 10/20/16 05:55 Pulse Rate 89 10/20/16 05:55 Respiratory Rate 20 10/20/16 05:55 Blood Pressure 90/52 10/20/16 05:55 O2 Sat by Pulse Oximetry (%) 96 10/19/16 22:00 Constitutional: Yes: Calm, Mild Distress Neck: Yes: Supple Cardiovascular: Yes: Regular Rate and Rhythm Respiratory: Yes: Poor Air Entry, Rhonchi, Other Gastrointestinal: Yes: Normal Bowel Sounds, Soft, Other (feeding tube in place) Musculoskeletal: Yes: Other Extremities: Yes: Other Neurological: Yes: Alert, Oriented Psychiatric: Yes: Alert, Oriented Labs: CBC, BMP 10/20/16 06:00 10/20/16 06:00 INR, PTT INR 1.24 (0.82-1.09) H 10/18/16 00:57 Assessment/Plan Problems (1) Cough with hemoptysis Code(s): R04.2 - HEMOPTYSIS (2) Sepsis Code(s): A41.9 - SEPSIS, UNSPECIFIED ORGANISM (3) Pneumonia Code(s): J18.9 - PNEUMONIA, UNSPECIFIED ORGANISM Qualifiers: (4) Dysphagia Code(s): R13.10 - DYSPHAGIA, UNSPECIFIED (5) COPD (chronic obstructive pulmonary disease) Code(s): J44.9 - CHRONIC OBSTRUCTIVE PULMONARY DISEASE, UNSPECIFIED Qualifiers : COPD type: COPD with acute exacerbation Qualified Code(s): J44.1 - Chronic obstructive pulmonary disease with (acute) exacerbation (6) Dystonia Code(s): G24.9 - DYSTONIA, UNSPECIFIED (7) GERD (gastroesophageal reflux disease) Code(s): K21.9 - GASTRO-ESOPHAGEAL REFLUX DISEASE WITHOUT ESOPHAGITIS (8) HTN (hypertension) Code(s): I10 - ESSENTIAL (PRIMARY) HYPERTENSION Qualifiers: uti plan will stop cefipime and clinda will switch to zosyn patient shows allergy to ampiciliin but patient has got zosyn before will watch d/w pharmcy and will let the nurse know if patient develops any reaction patient had no issues with cefipime all the cx report noted
[2016-10-20] MEDS ORDERED: PIPERACILLIN/TAZOB 3.375 GM 3.375 GM in DEXTROSE 5%-WATER - 50 ML IVPB SCH (11:15)
--- NOTE | 2016-10-20 12:09 | PN ---
Progress Note (short form) - Note Progress Note: PULMONARY 102 TMAX THIS AM AWAKE/ALERT NO FURTHER HEMOPTYSIS PATIENT REPORTS GREEN SPUTUM MRSA NOTED IN URINE (CONTACT ISOLATION) ANICTERIC MINIMAL RHONCHI SCATTERED S1S2 BS+ DYSTONIA LABS/MEDS/NOTES/IMAGING REVIEWED Infected bronchiectasis/+/- aspiration pneumonia Sepsis Hemoptysis resolved Dystonia Dysphagia HTN - IV antibiotics as per ID - IVF - monitor fever curve, WBC trend - discussed with pt possibility of replacing PEG with J-tube, he is amenable to discussing with a surgeon, will consult surgery - O2 as needed - aspiration precautions - DVT prophylaxis Bryan GAYTAN MD
[2016-10-20] MEDS: PIPERACILLIN/TAZOB 3.375 GM 50 ML IVPB SCH ×2 (12:35→17:53)
--- NOTE | 2016-10-20 14:25 | PN ---
Progress Note (short form) - Note Progress Note: GI CONSULTATION: SEE FULL DICTATION: IN BRIEF: GT IS IN GOOD LOCATIONAND FX PROPERLY PER GT STUDY TUBE SEEMS CLEAN AND INTACT PT HAS SOME GERD/REFLUX AND HAS HAD RECURRENT PNEUMONIAS DUE TOP POSSILBE ASPIRATION CURRENTLY HE APPEARS STABLE WITHOUT COUGH OR GI COMPLAINTS NOT IMPACTED ON SALONI ABD NOT DISTENDED WOULD CONSIDER CONTINUOUS FEEDS OPPOSED TO BOLUS FEEDS AND THEN CHECK RESIDUALS IF RESIDUALS ARE FORMING, THEN WOULD ADD REGLAN TO REGIMEN WOULD START WITH FEEDS AT 30CC/HOUR AND KEEP HEAD OF BED AT 60 DEGREES DURING FEEDS THANKSKATHRINE MD
[2016-10-20] MEDS ORDERED: PT OWN MED DRAWER 7, Y5N ONE (20:20)
[2016-10-20] MEDS: DOCUSATE NA 100 MG/10 ML UNIT-DOSE CUPS GT SCH (21:07)
[2016-10-20] MEDS: AMINO ACIDS 4.25%/D5W 1,000 ML IV SCH (21:23)
[2016-10-21] MEDS: PIPERACILLIN/TAZOB 3.375 GM 50 ML IVPB SCH ×3 (00:59→18:04)
[2016-10-21] MEDS: ACETAMINOPHEN 650 MG/20.3 ML ORAL SOLUTION (CUPS) GT PRN (01:12)
--- NOTE | 2016-10-21 03:04 | CONS ---
GASTROENTEROLOGY CONSULTATION: DATE OF CONSULTATION: 10/20/2016 DICTATED BY: Christina Adams MD REFERRED BY: Christopher Dos Santos MD REASON FOR CONSULTATION: G-tube malfunction. HISTORY OF PRESENT ILLNESS: The patient is a 61-year-old gentleman who was able to elicit some of his medical history. Apparently, via the EMR, it appears he has a history of cervical fusion status post fracture, has a history of dystonia, neurogenic bladder. He has had a PEG tube due to dysphagia, and he came in a couple days ago with hemoptysis. The patient was coughing and spitting up bright red blood. It was coming out of his nose as well when he was coughing so hard. He had some epigastric discomfort. He was not having any nausea, vomiting melena, fevers, chills or sweats, and apparently he was recently treated at [facility] for pneumonia and hemoptysis. Apparently, the patient came in, as noted, with hemoptysis and had an elevated fever, and he was seen by pulmonary. When he came in, he was noted to have some shortness of breath as well. He was thought to have sepsis pneumonia due to aspiration. He was started on broad antibiotics and IV fluids. The patient now looks very, very comfortable and is in absolutely no acute distress at the present time. He tells me that he does not have any pain, nausea or vomiting. He says he was getting bolus G-tube feeds, but they were backing up a bit, but there was no report of leakage, erythema or discharge from the G-tube site. ALLERGIES: The patient is noted to be allergic to PENICILLIN. He is noted to be allergic to IODINE, LATEX, SHELLFISH, AMPICILLIN, UNISYN and SULFA. PAST MEDICAL HISTORY: In terms of past medical history, he also has had some heart burn and anxiety. He has a suprapubic tube. SOCIAL HISTORY: The patient does not smoke or drink. HOME MEDICTIONS: Valium, Pro-Air, Cystex tablets, heparin subcutaneous, albuterol, Colace, Reglan, MiraLAX 17 gm daily, Zantac, tramadol and Colace. CURRENT MEDICATIONS: Zofran, Tylenol, Zosyn, heparin subcutaneous, Valium, Ventolin, Kinemax, Dulcolax, Colace, MiraLAX, Zantac and Ultram. PHYSICAL EXAM: General: He is sitting up in bed. He is very thin and cachectic. He has significant dysarthria. He is in no acute distress. Vital signs: He has a temperature of 102.9 with a heart rate of 101. HEENT: He is anicteric. Abdomen: His abdomen is very soft. His bowel sounds are active. There is no tenderness to deep palpation. There are no masses, rebound or guarding. The G-tube site is seen in situ. There is no significant erythema, discharge, pus or mucoid drainage from the site. Rectal exam: He has external hemorrhoids. He is not impacted. His stool is lawrence and guaiac negative. LAB DATA: Notable in that his chemistries are unremarkable. His creatinine is 0.6. His white count had been 14,000, is now 4.5 with a hemoglobin and hematocrit of 11.9/34.7, which is stable, and his platelet count is 129,000. The patient apparently had a G-tube study that was done and revealed that there was no significant leakage. There is no extravasation of contrast, but there was a little bit of GE reflux. IMPRESSION: So, it is my impression that this patient 61-year-old gentleman with multiple medical problems who basically comes in with what sounds like he had an aspiration pneumonia is having some reflux with the bolus feeds. The G-tube site is working. It is clean. It is intact. There is no discharge or extravasation of contrast as seen on the film. PLAN: So, for now, I would revert to continuous feeding instead of bolus feedings. I would start continuous feeds at 30 mL an hour, keeping the head of bed at 60 degrees. I would check residuals and observe to see if there is any backup. If the patient is having significant residual, then we may need to add Reglan to his regimen to keep the feeds moving, but that should not be a long-term issue due to the side effects of Reglan. For now, I would resume G-tube feeds and observe and keep him upright with aspiration precautions. Thank you kindly. JENNA ADAMS M.D. JANETH/[id number] cc: Christopher Dos Santos MD
[2016-10-21] MEDS: diazePAM 5 MG TABLET GT SCH ×3 (05:19→21:06)
[2016-10-21 08:24] LABS: MCH 34.1 pg (25.7-33.7); MCHC 34.5 g/dl (32.0-35.9); MEAN CELL VOLUME 98.8 fl (80-96); MEAN PLT VOLUME 8.4 fl (7.5-11.1); PLATELET COUNT 156 K/MM3 (134-434); RDW 12.9 % (11.9-15.9); WHITE BLOOD COUNT 4.7 K/mm3 (4.0-10.0)
[2016-10-21 08:32] LABS: CALCIUM 8.3 mg/dL (8.5-10.1); COCKROFT - GAULT 104.83; CREATININE 0.5 mg/dL (0.7-1.3); MAGNESIUM 2.3 mg/dL (1.8-2.4); PHOSPHOROUS 3.2 mg/dL (2.5-4.9)
[2016-10-21] MEDS: HEPARIN NA (PORCINE) 5,000 UNITS/ML 1ML VIAL SQ SCH ×2 (10:02→21:07)
[2016-10-21] MEDS: RANITIDINE HCL 150 MG/10 ML UNIT-DOSE CUP GT SCH ×2 (10:03→21:06)
[2016-10-21] MEDS: AMINO ACIDS 4.25%/D5W 1,000 ML IV SCH ×2 (10:03→21:07)
[2016-10-21] MEDS: PANTOPRAZOLE SOD 40 MG SUSPENSION PACKET GT SCH (10:04)
[2016-10-21 10:44] LABS: PLATELET ESTIMATE ADEQUATE (NORMAL)
--- NOTE | 2016-10-21 12:25 | PN ---
Progress Note (short form) - Note Progress Note: PULMONARY LOW GRADE THIS AM AWAKE/ALERT NO FURTHER HEMOPTYSIS PATIENT REPORTS GREEN SPUTUM MRSA NOTED IN URINE (CONTACT ISOLATION) ANICTERIC MINIMAL RHONCHI SCATTERED S1S2 BS+ DYSTONIA LABS/MEDS/NOTES/IMAGING REVIEWED Infected bronchiectasis/+/- aspiration pneumonia Sepsis Hemoptysis resolved Dystonia Dysphagia HTN - IV antibiotics as per ID - IVF - monitor fever curve, WBC trend - discussed with pt possibility of replacing PEG with J-tube, he is amenable to discussing with a surgeon, will consult surgery - O2 as needed - aspiration precautions - DVT prophylaxis - GI NOTE REVIEWED Bryan GAYTAN MD
--- NOTE | 2016-10-21 12:44 | PN ---
Progress Note, Physician Chief Complaint: Mr Nash says he is not sleeping well. Still with fevers and productive cough. No cp or n/v. - Current Medication List Current Medications: Active Medications Acetaminophen (Tylenol Oral Solution -) 650 mg GT Q6H PRN PRN Reason: FEVER OR PAIN Last Admin: 10/21/16 01:12 Dose: 650 mg Albuterol Sulfate (Ventolin 0.083% Nebulizer Soln -) 1 amp NEB TID PRN PRN Reason: SHORT OF BREATH/WHEEZING Bisacodyl (Dulcolax Suppository -) 10 mg RC PRN PRN Diazepam (Valium -) 5 mg GT TID [facility] Last Admin: 10/21/16 05:19 Dose: 5 mg Docusate Sodium (Colace Liquid -) 300 mg GT HS [facility] Last Admin: 10/20/16 21:07 Dose: 300 mg Heparin Sodium (Porcine) (Heparin -) 5,000 unit SQ BID [facility] Last Admin: 10/21/16 10:02 Dose: Not Given Amino Acids (Clinimix -) 1,000 mls @ 100 mls/hr IV ASDIR [facility] Last Admin: 10/21/16 10:03 Dose: 100 mls/hr Piperacillin Sod/Tazobactam Sod (Zosyn 3.375gm Ivpb (Pre-Docked)) 50 mls @ 100 mls/hr IVPB Q8H-IV ESVIN PRN Reason: Protocol Last Admin: 10/21/16 10:04 Dose: 100 mls/hr Ondansetron HCl (Zofran Injection) 4 mg IVPB Q6H PRN PRN Reason: NAUSEA Last Admin: 10/18/16 11:29 Dose: 4 mg Pantoprazole Sodium (Protonix Packets For Oral Suspension -) 40 mg GT DAILY [facility] Last Admin: 10/21/16 10:04 Dose: 40 mg Polyethylene Glycol (Miralax (For Daily Use) -) 17 gm GT DAILY PRN PRN Reason: CONSTIPATION Ranitidine HCl (Zantac Oral Solution -) 150 mg GT BID [facility] Last Admin: 10/21/16 10:03 Dose: 150 mg Tramadol HCl (Ultram -) 50 mg PEG Q6H PRN PRN Reason: PAIN - Objective Vital Signs: Vital Signs Temperature 97.5 F L 10/21/16 09:00 Pulse Rate 89 10/21/16 09:00 Respiratory Rate 18 10/21/16 10:00 Blood Pressure 99/64 10/21/16 09:00 O2 Sat by Pulse Oximetry (%) 95 10/21/16 10:00 Constitutional: Yes: No Distress, Calm, Thin Cardiovascular: Yes: Regular Rate and Rhythm. No: Gallop, Murmur, Rub Respiratory: Yes: Regular, Rhonchi. No: Rales, Wheezes Gastrointestinal: Yes: Normal Bowel Sounds, Soft. No: Distention, Tenderness Extremities: Yes: WNL Edema: No Labs: CBC, BMP 10/21/16 06:20 10/21/16 06:20 INR, PTT INR 1.24 (0.82-1.09) H 10/18/16 00:57 Problem List - Problems (1) Cough with hemoptysis Code(s): R04.2 - HEMOPTYSIS (2) Sepsis Code(s): A41.9 - SEPSIS, UNSPECIFIED ORGANISM (3) Pneumonia Code(s): J18.9 - PNEUMONIA, UNSPECIFIED ORGANISM Qualifiers: (4) Dysphagia Code(s): R13.10 - DYSPHAGIA, UNSPECIFIED (5) COPD (chronic obstructive pulmonary disease) Code(s): J44.9 - CHRONIC OBSTRUCTIVE PULMONARY DISEASE, UNSPECIFIED Qualifiers : COPD type: COPD with acute exacerbation Qualified Code(s): J44.1 - Chronic obstructive pulmonary disease with (acute) exacerbation (6) Dystonia Code(s): G24.9 - DYSTONIA, UNSPECIFIED (7) GERD (gastroesophageal reflux disease) Code(s): K21.9 - GASTRO-ESOPHAGEAL REFLUX DISEASE WITHOUT ESOPHAGITIS (8) HTN (hypertension) Code(s): I10 - ESSENTIAL (PRIMARY) HYPERTENSION Qualifiers: Assessment/Plan (1) Cough with hemoptysis Assessment/Plan: -appreciate ID and pulmonary assistance -secondary to reflux with aspiration -continue antibiotics -hemoptysis resolved but still with productive cough Code(s): R04.2 - HEMOPTYSIS (2) Sepsis Assessment/Plan: -still with fevers -ID following Code(s): A41.9 - SEPSIS, UNSPECIFIED ORGANISM (3) Pneumonia Assessment/Plan: -ID following -cefepime changed to zosyn -clindamycin discontinued Code(s): J18.9 - PNEUMONIA, UNSPECIFIED ORGANISM Qualifiers: (4) Dysphagia Assessment/Plan: -g-tube showing aspiration -GI consulted and following -recommended continuous TF that patient adamantly refuses -on clinimix, will need to figure out a fdc solution Code(s): R13.10 - DYSPHAGIA, UNSPECIFIED (5) COPD (chronic obstructive pulmonary disease) Assessment/Plan: -secondary to pneumonia/aspiration -pulmonary following -continue home regimen Code(s): J44.9 - CHRONIC OBSTRUCTIVE PULMONARY DISEASE, UNSPECIFIED Qualifiers : COPD type: COPD with acute exacerbation Qualified Code(s): J44.1 - Chronic obstructive pulmonary disease with (acute) exacerbation (6) Dystonia Assessment/Plan: -continue home regimen Code(s): G24.9 - DYSTONIA, UNSPECIFIED (7) GERD (gastroesophageal reflux disease) Assessment/Plan: -continue protonix Code(s): K21.9 - GASTRO-ESOPHAGEAL REFLUX DISEASE WITHOUT ESOPHAGITIS (8) HTN (hypertension) Assessment/Plan: -well controlled Code(s): I10 - ESSENTIAL (PRIMARY) HYPERTENSION Qualifiers: (9) Depression -appreciate psychiatry evaluation
--- NOTE | 2016-10-21 12:54 | PN ---
Progress Note, Physician History of Present Illness: was feeling much better intially now does not feel so well spiked a fever again all cx reports back - Current Medication List Current Medications: Active Medications Acetaminophen (Tylenol Oral Solution -) 650 mg GT Q6H PRN PRN Reason: FEVER OR PAIN Last Admin: 10/21/16 01:12 Dose: 650 mg Albuterol Sulfate (Ventolin 0.083% Nebulizer Soln -) 1 amp NEB TID PRN PRN Reason: SHORT OF BREATH/WHEEZING Bisacodyl (Dulcolax Suppository -) 10 mg RC PRN PRN Diazepam (Valium -) 5 mg GT TID [facility] Last Admin: 10/21/16 05:19 Dose: 5 mg Docusate Sodium (Colace Liquid -) 300 mg GT HS [facility] Last Admin: 10/20/16 21:07 Dose: 300 mg Heparin Sodium (Porcine) (Heparin -) 5,000 unit SQ BID [facility] Last Admin: 10/21/16 10:02 Dose: Not Given Amino Acids (Clinimix -) 1,000 mls @ 100 mls/hr IV ASDIR [facility] Last Admin: 10/21/16 10:03 Dose: 100 mls/hr Piperacillin Sod/Tazobactam Sod (Zosyn 3.375gm Ivpb (Pre-Docked)) 50 mls @ 100 mls/hr IVPB Q8H-IV ESVIN PRN Reason: Protocol Last Admin: 10/21/16 10:04 Dose: 100 mls/hr Ondansetron HCl (Zofran Injection) 4 mg IVPB Q6H PRN PRN Reason: NAUSEA Last Admin: 10/18/16 11:29 Dose: 4 mg Pantoprazole Sodium (Protonix Packets For Oral Suspension -) 40 mg GT DAILY [facility] Last Admin: 10/21/16 10:04 Dose: 40 mg Polyethylene Glycol (Miralax (For Daily Use) -) 17 gm GT DAILY PRN PRN Reason: CONSTIPATION Ranitidine HCl (Zantac Oral Solution -) 150 mg GT BID [facility] Last Admin: 10/21/16 10:03 Dose: 150 mg Tramadol HCl (Ultram -) 50 mg PEG Q6H PRN PRN Reason: PAIN - Objective Vital Signs: Vital Signs Temperature 97.5 F L 10/21/16 09:00 Pulse Rate 89 10/21/16 09:00 Respiratory Rate 18 10/21/16 10:00 Blood Pressure 99/64 10/21/16 09:00 O2 Sat by Pulse Oximetry (%) 95 10/21/16 10:00 Constitutional: Yes: Calm, Mild Distress Cardiovascular: Yes: Regular Rate and Rhythm Respiratory: Yes: Poor Air Entry, Rhonchi Genitourinary: Yes: Bagley Present Musculoskeletal: Yes: Other Extremities: Yes: Other Neurological: Yes: Alert, Oriented Labs: CBC, BMP 10/21/16 06:20 10/21/16 06:20 INR, PTT INR 1.24 (0.82-1.09) H 10/18/16 00:57 Assessment/Plan Problems (1) Cough with hemoptysis Code(s): R04.2 - HEMOPTYSIS (2) Sepsis Code(s): A41.9 - SEPSIS, UNSPECIFIED ORGANISM (3) Pneumonia Code(s): J18.9 - PNEUMONIA, UNSPECIFIED ORGANISM Qualifiers: (4) Dysphagia Code(s): R13.10 - DYSPHAGIA, UNSPECIFIED (5) COPD (chronic obstructive pulmonary disease) Code(s): J44.9 - CHRONIC OBSTRUCTIVE PULMONARY DISEASE, UNSPECIFIED Qualifiers : COPD type: COPD with acute exacerbation Qualified Code(s): J44.1 - Chronic obstructive pulmonary disease with (acute) exacerbation (6) Dystonia Code(s): G24.9 - DYSTONIA, UNSPECIFIED (7) GERD (gastroesophageal reflux disease) Code(s): K21.9 - GASTRO-ESOPHAGEAL REFLUX DISEASE WITHOUT ESOPHAGITIS (8) HTN (hypertension) Code(s): I10 - ESSENTIAL (PRIMARY) HYPERTENSION Qualifiers: uti mrsa,multibacterial plan continue current abx will add vanco monitor fevers rest as per primary
[2016-10-21] MEDS: VANCOMYCIN 1,250 MG in DEXTROSE 5%-WATER - 250 ML IVPB SCH (13:46)
[2016-10-21] MEDS ORDERED: PT OWN MED DRAWER 7, Y5N ONE (20:56)
[2016-10-21] MEDS: DOCUSATE NA 100 MG/10 ML UNIT-DOSE CUPS GT SCH (21:06)
[2016-10-22] MEDS: PIPERACILLIN/TAZOB 3.375 GM 50 ML IVPB SCH ×3 (01:35→18:09)
[2016-10-22] MEDS: diazePAM 5 MG TABLET GT SCH ×3 (06:06→21:57)
[2016-10-22 07:15] LABS: MCH 33.7 pg (25.7-33.7); MCHC 34.3 g/dl (32.0-35.9); MEAN CELL VOLUME 98.3 fl (80-96); PLATELET COUNT 187 K/MM3 (134-434); RDW 12.9 % (11.9-15.9); WHITE BLOOD COUNT 6.6 K/mm3 (4.0-10.0)
[2016-10-22 07:44] LABS: CALCIUM 8.6 mg/dL (8.5-10.1); COCKROFT - GAULT 104.83; CREATININE 0.5 mg/dL (0.7-1.3); MAGNESIUM 2.2 mg/dL (1.8-2.4); PHOSPHOROUS 2.6 mg/dL (2.5-4.9)
[2016-10-22] MEDS: AMINO ACIDS 4.25%/D5W 1,000 ML IV SCH ×2 (08:00→21:58)
[2016-10-22] MEDS ORDERED: PT OWN MED DRAWER 7, Y5N ONE ×3 (08:21→22:03)
[2016-10-22] MEDS: HEPARIN NA (PORCINE) 5,000 UNITS/ML 1ML VIAL SQ SCH ×2 (09:03→21:59)
[2016-10-22] MEDS: RANITIDINE HCL 150 MG/10 ML UNIT-DOSE CUP GT SCH ×2 (09:04→22:04)
[2016-10-22] MEDS: PANTOPRAZOLE SOD 40 MG SUSPENSION PACKET GT SCH (09:04)
[2016-10-22] MEDS: VANCOMYCIN 1,250 MG in DEXTROSE 5%-WATER - 250 ML IVPB SCH (10:00)
--- NOTE | 2016-10-22 12:10 | PN ---
Progress Note, Physician History of Present Illness: pulmonary no distress,-sob,-congestion - Current Medication List Current Medications: Active Medications Acetaminophen (Tylenol Oral Solution -) 650 mg GT Q6H PRN PRN Reason: FEVER OR PAIN Last Admin: 10/21/16 01:12 Dose: 650 mg Albuterol Sulfate (Ventolin 0.083% Nebulizer Soln -) 1 amp NEB TID PRN PRN Reason: SHORT OF BREATH/WHEEZING Bisacodyl (Dulcolax Suppository -) 10 mg RC PRN PRN Diazepam (Valium -) 5 mg GT TID [facility] Last Admin: 10/22/16 06:06 Dose: Not Given Docusate Sodium (Colace Liquid -) 300 mg GT HS [facility] Last Admin: 10/21/16 21:06 Dose: 300 mg Heparin Sodium (Porcine) (Heparin -) 5,000 unit SQ BID [facility] Last Admin: 10/22/16 09:03 Dose: Not Given Amino Acids (Clinimix -) 1,000 mls @ 100 mls/hr IV ASDIR [facility] Last Admin: 10/21/16 21:07 Dose: 100 mls/hr Piperacillin Sod/Tazobactam Sod (Zosyn 3.375gm Ivpb (Pre-Docked)) 50 mls @ 100 mls/hr IVPB Q8H-IV [facility] PRN Reason: Protocol Last Admin: 10/22/16 09:02 Dose: 100 mls/hr Vancomycin HCl 1,250 mg/ (Dextrose) 250 mls @ 166.667 mls/hr IVPB DAILY [facility] PRN Reason: Protocol Last Admin: 10/22/16 10:00 Dose: 166.667 mls/hr Ondansetron HCl (Zofran Injection) 4 mg IVPB Q6H PRN PRN Reason: NAUSEA Last Admin: 10/18/16 11:29 Dose: 4 mg Pantoprazole Sodium (Protonix Packets For Oral Suspension -) 40 mg GT DAILY [facility] Last Admin: 10/22/16 09:04 Dose: 40 mg Polyethylene Glycol (Miralax (For Daily Use) -) 17 gm GT DAILY PRN PRN Reason: CONSTIPATION Ranitidine HCl (Zantac Oral Solution -) 150 mg GT BID [facility] Last Admin: 10/22/16 09:04 Dose: 150 mg - Objective Vital Signs: Vital Signs Temperature 98.1 F 10/22/16 06:00 Pulse Rate 69 10/22/16 06:00 Respiratory Rate 20 10/22/16 06:00 Blood Pressure 95/62 10/22/16 06:00 O2 Sat by Pulse Oximetry (%) 96 10/21/16 21:29 Constitutional: Yes: Calm, Thin Eyes: Yes: WNL HENT: Yes: WNL Neck: Yes: WNL Cardiovascular: Yes: Regular Rate and Rhythm, S1, S2 Respiratory: Yes: CTA Bilaterally Gastrointestinal: Yes: WNL Extremities: Yes: WNL Edema: No Labs: CBC, BMP 10/22/16 05:38 10/22/16 05:38 INR, PTT INR 1.24 (0.82-1.09) H 10/18/16 00:57 Assessment/Plan Problem List - Problems (1) Pneumonia Code(s): J18.9 - PNEUMONIA, UNSPECIFIED ORGANISM Qualifiers: (2) Aspiration of formula Code(s): P24.30 - ASPIRAT OF MILK AND REGURGITATED FOOD W/O RESP SYMP (3) Hemoptysis Code(s): R04.2 - HEMOPTYSIS (4) Dysphagia Code(s): R13.10 - DYSPHAGIA, UNSPECIFIED (5) Dystonia Code(s): G24.9 - DYSTONIA, UNSPECIFIED (6) HTN (hypertension) Code(s): I10 - ESSENTIAL (PRIMARY) HYPERTENSION Qualifiers: (7) Suprapubic catheter Code(s): Z93.59 - OTHER CYSTOSTOMY STATUS (8) Urinary tract infection Code(s): N39.0 - URINARY TRACT INFECTION, SITE NOT SPECIFIED Qualifiers: Urinary tract infection type: acute cystitis Hematuria presence: without hematuria Qualified Code(s): N30.00 - Acute cystitis without hematuria Assessment/Plan Likely Aspiration Pneumonia from enteral feeds Sepsis Hemoptysis Dystonia Dysphagia HTN - IV antibiotics as per ID - IVF - monitor fever curve, WBC trend - O2 as needed - aspiration precautions - DVT prophylaxis - continuos gt feeds - chest x-ray DR MURDOCK
[2016-10-22 12:36] LABS: PLATELET ESTIMATE ADEQUATE (NORMAL)
--- NOTE | 2016-10-22 14:59 | PN ---
Progress Note, Physician Chief Complaint: Mr Nash complains of trouble sleeping. Says his fevers are resolving and his coughing is decreasing. No cp, sob, n/v. - Current Medication List Current Medications: Active Medications Acetaminophen (Tylenol Oral Solution -) 650 mg GT Q6H PRN PRN Reason: FEVER OR PAIN Last Admin: 10/21/16 01:12 Dose: 650 mg Albuterol Sulfate (Ventolin 0.083% Nebulizer Soln -) 1 amp NEB TID PRN PRN Reason: SHORT OF BREATH/WHEEZING Bisacodyl (Dulcolax Suppository -) 10 mg RC PRN PRN Diazepam (Valium -) 5 mg GT TID [facility] Last Admin: 10/22/16 14:46 Dose: 5 mg Docusate Sodium (Colace Liquid -) 300 mg GT HS [facility] Last Admin: 10/21/16 21:06 Dose: 300 mg Heparin Sodium (Porcine) (Heparin -) 5,000 unit SQ BID [facility] Last Admin: 10/22/16 09:03 Dose: Not Given Amino Acids (Clinimix -) 1,000 mls @ 100 mls/hr IV ASDIR [facility] Last Admin: 10/21/16 21:07 Dose: 100 mls/hr Piperacillin Sod/Tazobactam Sod (Zosyn 3.375gm Ivpb (Pre-Docked)) 50 mls @ 100 mls/hr IVPB Q8H-IV ESVIN PRN Reason: Protocol Last Admin: 10/22/16 09:02 Dose: 100 mls/hr Vancomycin HCl 1,250 mg/ (Dextrose) 250 mls @ 166.667 mls/hr IVPB DAILY [facility] PRN Reason: Protocol Last Admin: 10/22/16 10:00 Dose: 166.667 mls/hr Ondansetron HCl (Zofran Injection) 4 mg IVPB Q6H PRN PRN Reason: NAUSEA Last Admin: 10/18/16 11:29 Dose: 4 mg Pantoprazole Sodium (Protonix Packets For Oral Suspension -) 40 mg GT DAILY [facility] Last Admin: 10/22/16 09:04 Dose: 40 mg Polyethylene Glycol (Miralax (For Daily Use) -) 17 gm GT DAILY PRN PRN Reason: CONSTIPATION Ranitidine HCl (Zantac Oral Solution -) 150 mg GT BID [facility] Last Admin: 10/22/16 09:04 Dose: 150 mg - Objective Vital Signs: Vital Signs Temperature 98.1 F 10/22/16 06:00 Pulse Rate 69 10/22/16 06:00 Respiratory Rate 20 10/22/16 06:00 Blood Pressure 95/62 10/22/16 06:00 O2 Sat by Pulse Oximetry (%) 96 10/21/16 21:29 Constitutional: Yes: No Distress, Calm, Thin Cardiovascular: Yes: Regular Rate and Rhythm. No: Gallop, Murmur, Rub Respiratory: Yes: Regular, On Nasal O2, Rhonchi. No: Rales, Wheezes Gastrointestinal: Yes: Normal Bowel Sounds, Soft. No: Distention, Tenderness Extremities: Yes: WNL Edema: No Labs: CBC, BMP 10/22/16 05:38 10/22/16 05:38 INR, PTT INR 1.24 (0.82-1.09) H 10/18/16 00:57 Problem List - Problems (1) Cough with hemoptysis Code(s): R04.2 - HEMOPTYSIS (2) Sepsis Code(s): A41.9 - SEPSIS, UNSPECIFIED ORGANISM (3) Pneumonia Code(s): J18.9 - PNEUMONIA, UNSPECIFIED ORGANISM Qualifiers: (4) Dysphagia Code(s): R13.10 - DYSPHAGIA, UNSPECIFIED (5) COPD (chronic obstructive pulmonary disease) Code(s): J44.9 - CHRONIC OBSTRUCTIVE PULMONARY DISEASE, UNSPECIFIED Qualifiers : COPD type: COPD with acute exacerbation Qualified Code(s): J44.1 - Chronic obstructive pulmonary disease with (acute) exacerbation (6) Dystonia Code(s): G24.9 - DYSTONIA, UNSPECIFIED (7) GERD (gastroesophageal reflux disease) Code(s): K21.9 - GASTRO-ESOPHAGEAL REFLUX DISEASE WITHOUT ESOPHAGITIS (8) HTN (hypertension) Code(s): I10 - ESSENTIAL (PRIMARY) HYPERTENSION Qualifiers: Assessment/Plan (1) Cough with hemoptysis Assessment/Plan: -resolved -pulmonary following Code(s): R04.2 - HEMOPTYSIS (2) Sepsis Assessment/Plan: -continue antibiotics per ID Code(s): A41.9 - SEPSIS, UNSPECIFIED ORGANISM (3) Pneumonia Assessment/Plan: -ID following -continue zosyn Code(s): J18.9 - PNEUMONIA, UNSPECIFIED ORGANISM Qualifiers: (4) Dysphagia Assessment/Plan: -g-tube showing aspiration -GI consulted and following -patient agreeable to continuous tube feeds -will try and see if can tolerate Code(s): R13.10 - DYSPHAGIA, UNSPECIFIED (5) COPD (chronic obstructive pulmonary disease) Assessment/Plan: -secondary to pneumonia/aspiration -pulmonary following -continue home regimen Code(s): J44.9 - CHRONIC OBSTRUCTIVE PULMONARY DISEASE, UNSPECIFIED Qualifiers : COPD type: COPD with acute exacerbation Qualified Code(s): J44.1 - Chronic obstructive pulmonary disease with (acute) exacerbation (6) Dystonia Assessment/Plan: -continue home regimen Code(s): G24.9 - DYSTONIA, UNSPECIFIED (7) GERD (gastroesophageal reflux disease) Assessment/Plan: -continue protonix Code(s): K21.9 - GASTRO-ESOPHAGEAL REFLUX DISEASE WITHOUT ESOPHAGITIS (8) HTN (hypertension) Assessment/Plan: -well controlled Code(s): I10 - ESSENTIAL (PRIMARY) HYPERTENSION Qualifiers: (9) Depression -appreciate psychiatry evaluation (10) UTI -polymicrobial -ID following -on zosyn and vancomycin
[2016-10-22] MEDS: ZOLPIDEM TARTRATE 5 MG TABLET GT PRN (21:57)
[2016-10-22] MEDS: DOCUSATE NA 100 MG/10 ML UNIT-DOSE CUPS GT SCH (21:59)
[2016-10-23] MEDS: PIPERACILLIN/TAZOB 3.375 GM 50 ML IVPB SCH ×3 (01:26→17:34)
[2016-10-23] MEDS: AMINO ACIDS 4.25%/D5W 1,000 ML IV SCH (06:11)
[2016-10-23] MEDS: diazePAM 5 MG TABLET GT SCH ×3 (06:12→21:37)
[2016-10-23 06:54] LABS: BASOPHIL 0.3 % (0-2.0); MCH 34.1 pg (25.7-33.7); MCHC 34.9 g/dl (32.0-35.9); MEAN CELL VOLUME 97.6 fl (80-96); MEAN PLT VOLUME 7.7 fl (7.5-11.1); NEUTROPHILS 56.8 % (42.8-82.8); PLATELET COUNT 209 K/MM3 (134-434); RDW 12.8 % (11.9-15.9); WHITE BLOOD COUNT 6.7 K/mm3 (4.0-10.0)
[2016-10-23 07:21] LABS: CALCIUM 8.4 mg/dL (8.5-10.1); MAGNESIUM 2.2 mg/dL (1.8-2.4)
[2016-10-23 07:23] LABS: COCKROFT - GAULT 104.83; CREATININE 0.5 mg/dL (0.7-1.3); PHOSPHOROUS 3.2 mg/dL (2.5-4.9)
[2016-10-23] MEDS ORDERED: PT OWN MED DRAWER 7, Y5N ONE ×2 (09:41→21:34)
[2016-10-23] MEDS: HEPARIN NA (PORCINE) 5,000 UNITS/ML 1ML VIAL SQ SCH ×3 (09:47→21:49)
[2016-10-23] MEDS: PANTOPRAZOLE SOD 40 MG SUSPENSION PACKET GT SCH (09:48)
[2016-10-23] MEDS: RANITIDINE HCL 150 MG/10 ML UNIT-DOSE CUP GT SCH ×2 (09:48→21:37)
[2016-10-23] MEDS: VANCOMYCIN 1,250 MG in DEXTROSE 5%-WATER - 250 ML IVPB SCH (11:00)
--- NOTE | 2016-10-23 11:26 | PN ---
Progress Note, Physician History of Present Illness: doing better patient states that he is feeling well - Current Medication List Current Medications: Active Medications Acetaminophen (Tylenol Oral Solution -) 650 mg GT Q6H PRN PRN Reason: FEVER OR PAIN Last Admin: 10/21/16 01:12 Dose: 650 mg Bisacodyl (Dulcolax Suppository -) 10 mg RC PRN PRN Diazepam (Valium -) 5 mg GT TID [facility] Last Admin: 10/23/16 06:12 Dose: Not Given Docusate Sodium (Colace Liquid -) 300 mg GT HS [facility] Last Admin: 10/22/16 21:59 Dose: 300 mg Heparin Sodium (Porcine) (Heparin -) 5,000 unit SQ BID [facility] Last Admin: 10/23/16 09:47 Dose: Not Given Amino Acids (Clinimix -) 1,000 mls @ 100 mls/hr IV ASDIR [facility] Last Admin: 10/23/16 06:11 Dose: 100 mls/hr Piperacillin Sod/Tazobactam Sod (Zosyn 3.375gm Ivpb (Pre-Docked)) 50 mls @ 100 mls/hr IVPB Q8H-IV [facility]SVIN PRN Reason: Protocol Last Admin: 10/23/16 09:48 Dose: 100 mls/hr Vancomycin HCl 1,250 mg/ (Dextrose) 250 mls @ 166.667 mls/hr IVPB DAILY [facility] PRN Reason: Protocol Last Admin: 10/22/16 10:00 Dose: 166.667 mls/hr Ondansetron HCl (Zofran Injection) 4 mg IVPB Q6H PRN PRN Reason: NAUSEA Last Admin: 10/18/16 11:29 Dose: 4 mg Pantoprazole Sodium (Protonix Packets For Oral Suspension -) 40 mg GT DAILY [facility] Last Admin: 10/23/16 09:48 Dose: 40 mg Polyethylene Glycol (Miralax (For Daily Use) -) 17 gm GT DAILY PRN PRN Reason: CONSTIPATION Ranitidine HCl (Zantac Oral Solution -) 150 mg GT BID [facility] Last Admin: 10/23/16 09:48 Dose: 150 mg Zolpidem Tartrate (Ambien -) 5 mg GT HS PRN PRN Reason: INSOMNIA Last Admin: 10/22/16 21:57 Dose: 5 mg - Objective Vital Signs: Vital Signs Temperature 97.9 F 10/23/16 06:00 Pulse Rate 65 10/23/16 06:00 Respiratory Rate 20 10/23/16 06:00 Blood Pressure 105/64 10/23/16 06:00 O2 Sat by Pulse Oximetry (%) 98 10/22/16 22:00 Constitutional: Yes: No Distress, Calm Cardiovascular: Yes: Regular Rate and Rhythm Respiratory: Yes: Regular, Rhonchi Gastrointestinal: Yes: Normal Bowel Sounds, Soft, Other Genitourinary: Yes: [place] Present Breast(s): Yes: Other Musculoskeletal: Yes: Other Neurological: Yes: Alert, Oriented Psychiatric: Yes: Alert, Oriented Labs: CBC, BMP 10/23/16 05:35 10/23/16 05:35 INR, PTT INR 1.24 (0.82-1.09) H 10/18/16 00:57 Assessment/Plan Problems (1) Cough with hemoptysis Code(s): R04.2 - HEMOPTYSIS (2) Sepsis Code(s): A41.9 - SEPSIS, UNSPECIFIED ORGANISM (3) Pneumonia Code(s): J18.9 - PNEUMONIA, UNSPECIFIED ORGANISM Qualifiers: (4) Dysphagia Code(s): R13.10 - DYSPHAGIA, UNSPECIFIED (5) COPD (chronic obstructive pulmonary disease) Code(s): J44.9 - CHRONIC OBSTRUCTIVE PULMONARY DISEASE, UNSPECIFIED Qualifiers : COPD type: COPD with acute exacerbation Qualified Code(s): J44.1 - Chronic obstructive pulmonary disease with (acute) exacerbation (6) Dystonia Code(s): G24.9 - DYSTONIA, UNSPECIFIED (7) GERD (gastroesophageal reflux disease) Code(s): K21.9 - GASTRO-ESOPHAGEAL REFLUX DISEASE WITHOUT ESOPHAGITIS (8) HTN (hypertension) Code(s): I10 - ESSENTIAL (PRIMARY) HYPERTENSION Qualifiers: uti mrsa,multibacterial plan continue current abx will switch to oral once patient is stable rest ct current mgmt rest as per primary team
--- NOTE | 2016-10-23 11:33 | PN ---
Progress Note, Physician History of Present Illness: pulmonary alert,depressed,nad,- congestion,+ productive cough,-heme,tolerating GT feeding, afebrile - Current Medication List Current Medications: Active Medications Acetaminophen (Tylenol Oral Solution -) 650 mg GT Q6H PRN PRN Reason: FEVER OR PAIN Last Admin: 10/21/16 01:12 Dose: 650 mg Bisacodyl (Dulcolax Suppository -) 10 mg RC PRN PRN Diazepam (Valium -) 5 mg GT TID [facility] Last Admin: 10/23/16 06:12 Dose: Not Given Docusate Sodium (Colace Liquid -) 300 mg GT HS [facility] Last Admin: 10/22/16 21:59 Dose: 300 mg Heparin Sodium (Porcine) (Heparin -) 5,000 unit SQ BID [facility] Last Admin: 10/23/16 09:47 Dose: Not Given Amino Acids (Clinimix -) 1,000 mls @ 100 mls/hr IV ASDIR [facility] Last Admin: 10/23/16 06:11 Dose: 100 mls/hr Piperacillin Sod/Tazobactam Sod (Zosyn 3.375gm Ivpb (Pre-Docked)) 50 mls @ 100 mls/hr IVPB Q8H-IV [facility]IN PRN Reason: Protocol Last Admin: 10/23/16 09:48 Dose: 100 mls/hr Vancomycin HCl 1,250 mg/ (Dextrose) 250 mls @ 166.667 mls/hr IVPB DAILY [facility] PRN Reason: Protocol Last Admin: 10/22/16 10:00 Dose: 166.667 mls/hr Ondansetron HCl (Zofran Injection) 4 mg IVPB Q6H PRN PRN Reason: NAUSEA Last Admin: 10/18/16 11:29 Dose: 4 mg Pantoprazole Sodium (Protonix Packets For Oral Suspension -) 40 mg GT DAILY [facility] Last Admin: 10/23/16 09:48 Dose: 40 mg Polyethylene Glycol (Miralax (For Daily Use) -) 17 gm GT DAILY PRN PRN Reason: CONSTIPATION Ranitidine HCl (Zantac Oral Solution -) 150 mg GT BID [facility] Last Admin: 10/23/16 09:48 Dose: 150 mg Zolpidem Tartrate (Ambien -) 5 mg GT HS PRN PRN Reason: INSOMNIA Last Admin: 10/22/16 21:57 Dose: 5 mg - Objective Vital Signs: Vital Signs Temperature 97.9 F 10/23/16 06:00 Pulse Rate 79 10/23/16 11:28 Respiratory Rate 20 10/23/16 06:00 Blood Pressure 105/64 10/23/16 06:00 O2 Sat by Pulse Oximetry (%) 98 10/23/16 11:28 Constitutional: Yes: Calm, Cachectic Eyes: Yes: WNL HENT: Yes: WNL Neck: Yes: WNL Cardiovascular: Yes: Regular Rate and Rhythm, S1, S2 Respiratory: Yes: Diminished Gastrointestinal: Yes: Normal Bowel Sounds, Soft Extremities: Yes: WNL Edema: No Labs: CBC, BMP 10/23/16 05:35 10/23/16 05:35 INR, PTT INR 1.24 (0.82-1.09) H 10/18/16 00:57 Assessment/Plan Problem List - Problems (1) Pneumonia Code(s): J18.9 - PNEUMONIA, UNSPECIFIED ORGANISM Qualifiers: (2) Aspiration of formula Code(s): P24.30 - ASPIRAT OF MILK AND REGURGITATED FOOD W/O RESP SYMP (3) Hemoptysis Code(s): R04.2 - HEMOPTYSIS (4) Dysphagia Code(s): R13.10 - DYSPHAGIA, UNSPECIFIED (5) Dystonia Code(s): G24.9 - DYSTONIA, UNSPECIFIED (6) HTN (hypertension) Code(s): I10 - ESSENTIAL (PRIMARY) HYPERTENSION Qualifiers: (7) Suprapubic catheter Code(s): Z93.59 - OTHER CYSTOSTOMY STATUS (8) Urinary tract infection Code(s): N39.0 - URINARY TRACT INFECTION, SITE NOT SPECIFIED Qualifiers: Urinary tract infection type: acute cystitis Hematuria presence: without hematuria Qualified Code(s): N30.00 - Acute cystitis without hematuria Assessment/Plan Likely Aspiration Pneumonia from enteral feeds Sepsis Hemoptysis resolved Dystonia Dysphagia HTN - IV antibiotics as per ID - O2 as needed - aspiration precautions - DVT prophylaxis - continuos gt feeds - chest x-ray am DR MURDOCK
--- NOTE | 2016-10-23 12:15 | PN ---
Progress Note, Physician Chief Complaint: Mr Nash says she slept well last night. Also is no longer feeling feverish. Still with productive cough but is improving. No cp or n/v. - Current Medication List Current Medications: Active Medications Acetaminophen (Tylenol Oral Solution -) 650 mg GT Q6H PRN PRN Reason: FEVER OR PAIN Last Admin: 10/21/16 01:12 Dose: 650 mg Bisacodyl (Dulcolax Suppository -) 10 mg RC PRN PRN Diazepam (Valium -) 5 mg GT TID [facility] Last Admin: 10/23/16 06:12 Dose: Not Given Docusate Sodium (Colace Liquid -) 300 mg GT HS [facility] Last Admin: 10/22/16 21:59 Dose: 300 mg Heparin Sodium (Porcine) (Heparin -) 5,000 unit SQ BID [facility] Last Admin: 10/23/16 09:47 Dose: Not Given Piperacillin Sod/Tazobactam Sod (Zosyn 3.375gm Ivpb (Pre-Docked)) 50 mls @ 100 mls/hr IVPB Q8H-IV [facility]SVIN PRN Reason: Protocol Last Admin: 10/23/16 09:48 Dose: 100 mls/hr Vancomycin HCl 1,250 mg/ (Dextrose) 250 mls @ 166.667 mls/hr IVPB DAILY [facility] PRN Reason: Protocol Last Admin: 10/22/16 10:00 Dose: 166.667 mls/hr Ondansetron HCl (Zofran Injection) 4 mg IVPB Q6H PRN PRN Reason: NAUSEA Last Admin: 10/18/16 11:29 Dose: 4 mg Pantoprazole Sodium (Protonix Packets For Oral Suspension -) 40 mg GT DAILY [facility] Last Admin: 10/23/16 09:48 Dose: 40 mg Polyethylene Glycol (Miralax (For Daily Use) -) 17 gm GT DAILY PRN PRN Reason: CONSTIPATION Ranitidine HCl (Zantac Oral Solution -) 150 mg GT BID [facility] Last Admin: 10/23/16 09:48 Dose: 150 mg Zolpidem Tartrate (Ambien -) 5 mg GT HS PRN PRN Reason: INSOMNIA Last Admin: 10/22/16 21:57 Dose: 5 mg - Objective Vital Signs: Vital Signs Temperature 98.4 F 10/23/16 10:00 Pulse Rate 79 10/23/16 11:28 Respiratory Rate 20 10/23/16 10:00 Blood Pressure 105/77 10/23/16 10:00 O2 Sat by Pulse Oximetry (%) 98 10/23/16 11:28 Constitutional: Yes: No Distress, Calm, Thin Cardiovascular: Yes: Regular Rate and Rhythm. No: Gallop, Murmur, Rub Respiratory: Yes: Regular, On Nasal O2, Rhonchi. No: CTA Bilaterally, Rales, Wheezes Gastrointestinal: Yes: Normal Bowel Sounds, Soft. No: Distention, Tenderness Extremities: Yes: WNL Edema: No Labs: CBC, BMP 10/23/16 05:35 10/23/16 05:35 INR, PTT INR 1.24 (0.82-1.09) H 10/18/16 00:57 Problem List - Problems (1) Cough with hemoptysis Code(s): R04.2 - HEMOPTYSIS (2) Sepsis Code(s): A41.9 - SEPSIS, UNSPECIFIED ORGANISM (3) Pneumonia Code(s): J18.9 - PNEUMONIA, UNSPECIFIED ORGANISM Qualifiers: (4) Dysphagia Code(s): R13.10 - DYSPHAGIA, UNSPECIFIED (5) COPD (chronic obstructive pulmonary disease) Code(s): J44.9 - CHRONIC OBSTRUCTIVE PULMONARY DISEASE, UNSPECIFIED Qualifiers : COPD type: COPD with acute exacerbation Qualified Code(s): J44.1 - Chronic obstructive pulmonary disease with (acute) exacerbation (6) Dystonia Code(s): G24.9 - DYSTONIA, UNSPECIFIED (7) GERD (gastroesophageal reflux disease) Code(s): K21.9 - GASTRO-ESOPHAGEAL REFLUX DISEASE WITHOUT ESOPHAGITIS (8) HTN (hypertension) Code(s): I10 - ESSENTIAL (PRIMARY) HYPERTENSION Qualifiers: Assessment/Plan (1) Cough with hemoptysis Assessment/Plan: -hemoptysis resolved -still with productive cough but improving -pulmonary following Code(s): R04.2 - HEMOPTYSIS (2) Sepsis Assessment/Plan: -continue antibiotics per ID -resolved Code(s): A41.9 - SEPSIS, UNSPECIFIED ORGANISM (3) Pneumonia Assessment/Plan: -ID following -continue zosyn Code(s): J18.9 - PNEUMONIA, UNSPECIFIED ORGANISM Qualifiers: (4) Dysphagia Assessment/Plan: -tolerating continuous tube feeding Code(s): R13.10 - DYSPHAGIA, UNSPECIFIED (5) COPD (chronic obstructive pulmonary disease) Assessment/Plan: -secondary to pneumonia/aspiration -pulmonary following -continue home regimen Code(s): J44.9 - CHRONIC OBSTRUCTIVE PULMONARY DISEASE, UNSPECIFIED Qualifiers : COPD type: COPD with acute exacerbation Qualified Code(s): J44.1 - Chronic obstructive pulmonary disease with (acute) exacerbation (6) Dystonia Assessment/Plan: -continue home regimen Code(s): G24.9 - DYSTONIA, UNSPECIFIED (7) GERD (gastroesophageal reflux disease) Assessment/Plan: -continue protonix Code(s): K21.9 - GASTRO-ESOPHAGEAL REFLUX DISEASE WITHOUT ESOPHAGITIS (8) HTN (hypertension) Assessment/Plan: -well controlled Code(s): I10 - ESSENTIAL (PRIMARY) HYPERTENSION Qualifiers: (9) Depression -appreciate psychiatry evaluation (10) UTI -polymicrobial -ID following -on zosyn and vancomycin
--- NOTE | 2016-10-23 16:39 | PN ---
Progress Note, Physician History of Present Illness: feeling weak cough better and says he does not think he is febrile still producing sputum though - Current Medication List Current Medications: Active Medications Acetaminophen (Tylenol Oral Solution -) 650 mg GT Q6H PRN PRN Reason: FEVER OR PAIN Last Admin: 10/21/16 01:12 Dose: 650 mg Bisacodyl (Dulcolax Suppository -) 10 mg RC PRN PRN Diazepam (Valium -) 5 mg GT TID [facility] Last Admin: 10/23/16 13:40 Dose: 5 mg Docusate Sodium (Colace Liquid -) 300 mg GT HS [facility] Last Admin: 10/22/16 21:59 Dose: 300 mg Heparin Sodium (Porcine) (Heparin -) 5,000 unit SQ BID [facility] Last Admin: 10/23/16 09:47 Dose: Not Given Piperacillin Sod/Tazobactam Sod (Zosyn 3.375gm Ivpb (Pre-Docked)) 50 mls @ 100 mls/hr IVPB Q8H-IV [facility]SVIN PRN Reason: Protocol Last Admin: 10/23/16 09:48 Dose: 100 mls/hr Vancomycin HCl 1,250 mg/ (Dextrose) 250 mls @ 166.667 mls/hr IVPB DAILY [facility] PRN Reason: Protocol Last Admin: 10/23/16 11:00 Dose: 166.667 mls/hr Ondansetron HCl (Zofran Injection) 4 mg IVPB Q6H PRN PRN Reason: NAUSEA Last Admin: 10/18/16 11:29 Dose: 4 mg Pantoprazole Sodium (Protonix Packets For Oral Suspension -) 40 mg GT DAILY [facility] Last Admin: 10/23/16 09:48 Dose: 40 mg Polyethylene Glycol (Miralax (For Daily Use) -) 17 gm GT DAILY PRN PRN Reason: CONSTIPATION Ranitidine HCl (Zantac Oral Solution -) 150 mg GT BID [facility] Last Admin: 10/23/16 09:48 Dose: 150 mg Zolpidem Tartrate (Ambien -) 5 mg GT HS PRN PRN Reason: INSOMNIA Last Admin: 10/22/16 21:57 Dose: 5 mg - Objective Vital Signs: Vital Signs Temperature 98.2 F 10/23/16 14:46 Pulse Rate 67 10/23/16 14:46 Respiratory Rate 16 10/23/16 14:46 Blood Pressure 130/68 10/23/16 14:46 O2 Sat by Pulse Oximetry (%) 98 10/23/16 11:28 Constitutional: Yes: Calm, Mild Distress Cardiovascular: Yes: Regular Rate and Rhythm Respiratory: Yes: On Nasal O2, Rhonchi Gastrointestinal: Yes: Normal Bowel Sounds, Soft, Other (peg in place) Musculoskeletal: Yes: Other Extremities: Yes: Other Neurological: Yes: Alert, Oriented Psychiatric: Yes: Alert, Oriented Labs: CBC, BMP 10/23/16 05:35 10/23/16 05:35 INR, PTT INR 1.24 (0.82-1.09) H 10/18/16 00:57 Assessment/Plan Problems (1) Cough with hemoptysis Code(s): R04.2 - HEMOPTYSIS (2) Sepsis Code(s): A41.9 - SEPSIS, UNSPECIFIED ORGANISM (3) Pneumonia Code(s): J18.9 - PNEUMONIA, UNSPECIFIED ORGANISM Qualifiers: (4) Dysphagia Code(s): R13.10 - DYSPHAGIA, UNSPECIFIED (5) COPD (chronic obstructive pulmonary disease) Code(s): J44.9 - CHRONIC OBSTRUCTIVE PULMONARY DISEASE, UNSPECIFIED Qualifiers : COPD type: COPD with acute exacerbation Qualified Code(s): J44.1 - Chronic obstructive pulmonary disease with (acute) exacerbation (6) Dystonia Code(s): G24.9 - DYSTONIA, UNSPECIFIED (7) GERD (gastroesophageal reflux disease) Code(s): K21.9 - GASTRO-ESOPHAGEAL REFLUX DISEASE WITHOUT ESOPHAGITIS (8) HTN (hypertension) Code(s): I10 - ESSENTIAL (PRIMARY) HYPERTENSION Qualifiers: uti mrsa,multibacterial plan continue current abx will check vanco trough rest as per primary patient improving foleys catheter needs to be changed
[2016-10-23] MEDS: DOCUSATE NA 100 MG/10 ML UNIT-DOSE CUPS GT SCH (21:37)
[2016-10-23] MEDS: ZOLPIDEM TARTRATE 5 MG TABLET GT PRN (21:37)
[2016-10-24] MEDS: PIPERACILLIN/TAZOB 3.375 GM 50 ML IVPB SCH ×3 (01:24→17:41)
[2016-10-24] MEDS: diazePAM 5 MG TABLET GT SCH ×3 (05:57→22:33)
[2016-10-24 07:19] LABS: MCH 33.9 pg (25.7-33.7); MCHC 34.9 g/dl (32.0-35.9); MEAN PLT VOLUME 7.6 fl (7.5-11.1); PLATELET COUNT 246 K/MM3 (134-434); RDW 12.7 % (11.9-15.9); WHITE BLOOD COUNT 5.8 K/mm3 (4.0-10.0)
[2016-10-24 07:20] LABS: CALCIUM 8.4 mg/dL (8.5-10.1); COCKROFT - GAULT 131.03; CREATININE 0.4 mg/dL (0.7-1.3); MAGNESIUM 2.3 mg/dL (1.8-2.4); PHOSPHOROUS 3.3 mg/dL (2.5-4.9)
[2016-10-24] MEDS: PANTOPRAZOLE SOD 40 MG SUSPENSION PACKET GT SCH (09:49)
[2016-10-24] MEDS: HEPARIN NA (PORCINE) 5,000 UNITS/ML 1ML VIAL SQ SCH ×2 (09:50→22:31)
[2016-10-24] MEDS: ACETAMINOPHEN 650 MG/20.3 ML ORAL SOLUTION (CUPS) GT PRN (10:45)
[2016-10-24] MEDS: VANCOMYCIN 1,250 MG in DEXTROSE 5%-WATER - 250 ML IVPB SCH (10:45)
[2016-10-24] MEDS: RANITIDINE HCL 150 MG/10 ML UNIT-DOSE CUP GT SCH ×2 (10:46→22:31)
[2016-10-24 11:29] LABS: PLATELET ESTIMATE ADEQUATE (NORMAL)
--- NOTE | 2016-10-24 11:54 | PN ---
Progress Note (short form) - Note Progress Note: PULMONARY AWAKE/ALERT PATIENT REPORTS GREEN SPUTUM MRSA NOTED IN URINE (CONTACT ISOLATION) ANICTERIC MINIMAL RHONCHI SCATTERED S1S2 BS+ DYSTONIA LABS/MEDS/NOTES/IMAGING REVIEWED Infected bronchiectasis/+/- aspiration pneumonia Sepsis Hemoptysis resolved Dystonia Dysphagia HTN - IV antibiotics as per ID - IVF - monitor fever curve - O2 as needed - aspiration precautions - DVT prophylaxis - GI NOTE REVIEWED Bryan GAYTAN MD
--- NOTE | 2016-10-24 12:02 | PN ---
[facility] Note Chief Complaint: pt 61 yo male from [facility] admitted with hemoptysis seen for spt change - Objective Vital Signs: Vital Signs Temperature 98.2 F 10/24/16 09:48 Pulse Rate 73 10/24/16 09:48 Respiratory Rate 19 10/24/16 09:48 Blood Pressure 152/60 10/24/16 09:48 O2 Sat by Pulse Oximetry (%) 98 10/23/16 22:00 Labs/Additional Data: CBC, BMP 10/24/16 05:38 10/24/16 05:38 INR, PTT INR 1.24 (0.82-1.09) H 10/18/16 00:57 Blood Type Blood Type A POSITIVE 10/18/16 01:00 Antibody Screen Negative 10/18/16 01:00 Assessment/Plan spt changed 20fr 10 cc
--- NOTE | 2016-10-24 12:02 | PN ---
[facility] Note Chief Complaint: pt seemn and examined. stable. no evidence of infection - Objective Vital Signs: Vital Signs Temperature 98.2 F 10/24/16 09:48 Pulse Rate 73 10/24/16 09:48 Respiratory Rate 19 10/24/16 09:48 Blood Pressure 152/60 10/24/16 09:48 O2 Sat by Pulse Oximetry (%) 98 10/23/16 22:00 Labs/Additional Data: CBC, BMP 10/24/16 05:38 10/24/16 05:38 INR, PTT INR 1.24 (0.82-1.09) H 10/18/16 00:57 Blood Type Blood Type A POSITIVE 10/18/16 01:00 Antibody Screen Negative 10/18/16 01:00 Assessment/Plan urologically clear for d/c
--- NOTE | 2016-10-24 14:09 | PN ---
Progress Note, Physician Chief Complaint: Mr Nash says he had a little bit of blood in his sputum today, but only streaks. Still tolerating tube feeds. No cp, sob, n/v. - Current Medication List Current Medications: Active Medications Acetaminophen (Tylenol Oral Solution -) 650 mg GT Q6H PRN PRN Reason: FEVER OR PAIN Last Admin: 10/24/16 10:45 Dose: 650 mg Bisacodyl (Dulcolax Suppository -) 10 mg RC PRN PRN Diazepam (Valium -) 5 mg GT TID [facility] Last Admin: 10/24/16 05:57 Dose: Not Given Docusate Sodium (Colace Liquid -) 300 mg GT HS [facility] Last Admin: 10/23/16 21:37 Dose: 300 mg Heparin Sodium (Porcine) (Heparin -) 5,000 unit SQ BID [facility] Last Admin: 10/24/16 09:50 Dose: Not Given Piperacillin Sod/Tazobactam Sod (Zosyn 3.375gm Ivpb (Pre-Docked)) 50 mls @ 100 mls/hr IVPB Q8H-IV [facility] PRN Reason: Protocol Last Admin: 10/24/16 09:49 Dose: 100 mls/hr Vancomycin HCl 1,250 mg/ (Dextrose) 250 mls @ 166.667 mls/hr IVPB DAILY [facility] PRN Reason: Protocol Last Admin: 10/24/16 10:45 Dose: 166.667 mls/hr Ondansetron HCl (Zofran Injection) 4 mg IVPB Q6H PRN PRN Reason: NAUSEA Last Admin: 10/18/16 11:29 Dose: 4 mg Pantoprazole Sodium (Protonix Packets For Oral Suspension -) 40 mg GT DAILY [facility] Last Admin: 10/24/16 09:49 Dose: 40 mg Polyethylene Glycol (Miralax (For Daily Use) -) 17 gm GT DAILY PRN PRN Reason: CONSTIPATION Ranitidine HCl (Zantac Oral Solution -) 150 mg GT BID [facility] Last Admin: 10/24/16 10:46 Dose: 150 mg Zolpidem Tartrate (Ambien -) 5 mg GT HS PRN PRN Reason: INSOMNIA Last Admin: 10/23/16 21:37 Dose: 5 mg - Objective Vital Signs: Vital Signs Temperature 98.2 F 10/24/16 09:48 Pulse Rate 73 06/07/17 09:48 Respiratory Rate 19 10/24/16 09:48 Blood Pressure 152/60 10/24/16 09:48 O2 Sat by Pulse Oximetry (%) 98 10/23/16 22:00 Constitutional: Yes: No Distress, Calm, Thin Cardiovascular: Yes: Regular Rate and Rhythm. No: Gallop, Murmur, Rub Respiratory: Yes: Regular, On Nasal O2, Rhonchi. No: Rales, Wheezes Gastrointestinal: Yes: Normal Bowel Sounds, Soft. No: Distention, Tenderness Extremities: Yes: WNL Edema: No Labs: CBC, BMP 10/24/16 05:38 10/24/16 05:38 INR, PTT INR 1.24 (0.82-1.09) H 10/18/16 00:57 Problem List - Problems (1) Cough with hemoptysis Code(s): R04.2 - HEMOPTYSIS (2) Sepsis Code(s): A41.9 - SEPSIS, UNSPECIFIED ORGANISM (3) Pneumonia Code(s): J18.9 - PNEUMONIA, UNSPECIFIED ORGANISM Qualifiers: (4) Dysphagia Code(s): R13.10 - DYSPHAGIA, UNSPECIFIED (5) COPD (chronic obstructive pulmonary disease) Code(s): J44.9 - CHRONIC OBSTRUCTIVE PULMONARY DISEASE, UNSPECIFIED Qualifiers : COPD type: COPD with acute exacerbation Qualified Code(s): J44.1 - Chronic obstructive pulmonary disease with (acute) exacerbation (6) Dystonia Code(s): G24.9 - DYSTONIA, UNSPECIFIED (7) GERD (gastroesophageal reflux disease) Code(s): K21.9 - GASTRO-ESOPHAGEAL REFLUX DISEASE WITHOUT ESOPHAGITIS (8) HTN (hypertension) Code(s): I10 - ESSENTIAL (PRIMARY) HYPERTENSION Qualifiers: Assessment/Plan (1) Cough with hemoptysis Assessment/Plan: -slight hemoptysis -pulmonary following -continue monitoring Code(s): R04.2 - HEMOPTYSIS (2) Sepsis Assessment/Plan: -continue antibiotics per ID -resolved Code(s): A41.9 - SEPSIS, UNSPECIFIED ORGANISM (3) Pneumonia Assessment/Plan: -ID following -continue zosyn -monitor for aspiration from tube feeds Code(s): J18.9 - PNEUMONIA, UNSPECIFIED ORGANISM Qualifiers: (4) Dysphagia Assessment/Plan: -tolerating continuous tube feeding Code(s): R13.10 - DYSPHAGIA, UNSPECIFIED (5) COPD (chronic obstructive pulmonary disease) Assessment/Plan: -secondary to pneumonia/aspiration -pulmonary following -continue home regimen Code(s): J44.9 - CHRONIC OBSTRUCTIVE PULMONARY DISEASE, UNSPECIFIED Qualifiers : COPD type: COPD with acute exacerbation Qualified Code(s): J44.1 - Chronic obstructive pulmonary disease with (acute) exacerbation (6) Dystonia Assessment/Plan: -continue home regimen Code(s): G24.9 - DYSTONIA, UNSPECIFIED (7) GERD (gastroesophageal reflux disease) Assessment/Plan: -continue protonix Code(s): K21.9 - GASTRO-ESOPHAGEAL REFLUX DISEASE WITHOUT ESOPHAGITIS (8) HTN (hypertension) Assessment/Plan: -well controlled Code(s): I10 - ESSENTIAL (PRIMARY) HYPERTENSION Qualifiers: (9) Depression -appreciate psychiatry evaluation (10) UTI -polymicrobial -ID following -on zosyn and vancomycin
--- NOTE | 2016-10-24 17:10 | PN ---
Progress Note, Physician History of Present Illness: had streak of blood patient feeling better urology note noted - Current Medication List Current Medications: Active Medications Acetaminophen (Tylenol Oral Solution -) 650 mg GT Q6H PRN PRN Reason: FEVER OR PAIN Last Admin: 10/24/16 10:45 Dose: 650 mg Bisacodyl (Dulcolax Suppository -) 10 mg RC PRN PRN Diazepam (Valium -) 5 mg GT TID [facility] Last Admin: 10/24/16 15:00 Dose: 5 mg Docusate Sodium (Colace Liquid -) 300 mg GT HS [facility] Last Admin: 10/23/16 21:37 Dose: 300 mg Heparin Sodium (Porcine) (Heparin -) 5,000 unit SQ BID [facility] Last Admin: 10/24/16 09:50 Dose: Not Given Piperacillin Sod/Tazobactam Sod (Zosyn 3.375gm Ivpb (Pre-Docked)) 50 mls @ 100 mls/hr IVPB Q8H-IV [facility] PRN Reason: Protocol Last Admin: 10/24/16 09:49 Dose: 100 mls/hr Vancomycin HCl 1,250 mg/ (Dextrose) 250 mls @ 166.667 mls/hr IVPB DAILY [facility] PRN Reason: Protocol Last Admin: 10/24/16 10:45 Dose: 166.667 mls/hr Ondansetron HCl (Zofran Injection) 4 mg IVPB Q6H PRN PRN Reason: NAUSEA Last Admin: 10/18/16 11:29 Dose: 4 mg Pantoprazole Sodium (Protonix Packets For Oral Suspension -) 40 mg GT DAILY [facility] Last Admin: 10/24/16 09:49 Dose: 40 mg Polyethylene Glycol (Miralax (For Daily Use) -) 17 gm GT DAILY PRN PRN Reason: CONSTIPATION Ranitidine HCl (Zantac Oral Solution -) 150 mg GT BID [facility] Last Admin: 10/24/16 10:46 Dose: 150 mg Zolpidem Tartrate (Ambien -) 5 mg GT HS PRN PRN Reason: INSOMNIA Last Admin: 10/23/16 21:37 Dose: 5 mg - Objective Vital Signs: Vital Signs Temperature 97.8 F 10/24/16 14:22 Pulse Rate 62 10/24/16 14:22 Respiratory Rate 18 10/24/16 14:22 Blood Pressure 113/72 10/24/16 14:22 O2 Sat by Pulse Oximetry (%) 96 10/24/16 10:00 Constitutional: Yes: No Distress, Calm Cardiovascular: Yes: Regular Rate and Rhythm Respiratory: Yes: Rhonchi Gastrointestinal: Yes: Normal Bowel Sounds, Soft, Other (peg in place) Musculoskeletal: Yes: WNL Extremities: Yes: Other Neurological: Yes: Alert, Oriented Psychiatric: Yes: Alert Labs: CBC, BMP 10/24/16 05:38 10/24/16 05:38 INR, PTT INR 1.24 (0.82-1.09) H 10/18/16 00:57 Assessment/Plan Problems (1) Cough with hemoptysis Code(s): R04.2 - HEMOPTYSIS (2) Sepsis Code(s): A41.9 - SEPSIS, UNSPECIFIED ORGANISM (3) Pneumonia Code(s): J18.9 - PNEUMONIA, UNSPECIFIED ORGANISM Qualifiers: (4) Dysphagia Code(s): R13.10 - DYSPHAGIA, UNSPECIFIED (5) COPD (chronic obstructive pulmonary disease) Code(s): J44.9 - CHRONIC OBSTRUCTIVE PULMONARY DISEASE, UNSPECIFIED Qualifiers : COPD type: COPD with acute exacerbation Qualified Code(s): J44.1 - Chronic obstructive pulmonary disease with (acute) exacerbation (6) Dystonia Code(s): G24.9 - DYSTONIA, UNSPECIFIED (7) GERD (gastroesophageal reflux disease) Code(s): K21.9 - GASTRO-ESOPHAGEAL REFLUX DISEASE WITHOUT ESOPHAGITIS (8) HTN (hypertension) Code(s): I10 - ESSENTIAL (PRIMARY) HYPERTENSION Qualifiers: uti mrsa,multibacterial plan continue current abx vanco trough ordered rest as per primary patient improving urology evaluated the patient
[2016-10-24] MEDS ORDERED: PT OWN MED DRAWER 7, Y5N ONE (22:21)
[2016-10-24] MEDS: DOCUSATE NA 100 MG/10 ML UNIT-DOSE CUPS GT SCH (22:31)
[2016-10-25] MEDS: PIPERACILLIN/TAZOB 3.375 GM 50 ML IVPB SCH ×3 (01:49→17:07)
[2016-10-25] MEDS: diazePAM 5 MG TABLET GT SCH ×3 (06:33→21:09)
[2016-10-25 07:19] LABS: MCH 33.6 pg (25.7-33.7); MCHC 34.3 g/dl (32.0-35.9); MEAN CELL VOLUME 98.1 fl (80-96); MEAN PLT VOLUME 7.6 fl (7.5-11.1); PLATELET COUNT 270 K/MM3 (134-434); RDW 12.8 % (11.9-15.9); WHITE BLOOD COUNT 5.8 K/mm3 (4.0-10.0)
--- NOTE | 2016-10-25 07:32 | PN ---
Mental Health Exam - Mental Status Exam Alert and Oriented to: Time, Place, Person Cognitive Function: Grossly Intact Patient Appearance: Well Groomed Mood: Euphoric, Hopeful Affect: Appropriate, Normal Range, Euthymic Patient Behavior: Talkative, Appropriate, Cooperative Speech Pattern: Clear Voice Loudness: Mildly Soft/Quiet Thought Process: Intact, Goal Oriented (i want to go to [place]) Thought Disorder: Not Present Hallucinations: None Suicidal Ideation: None, No Plan (wrote "suicidal" on bible. ) Homicidal Ideation: None Insight/Judgement: Fair Sleep: Poorly Appetite: Fair Muscle strength/Tone: Normal Gait/Station: Deferred
[2016-10-25 07:40] LABS: CALCIUM 8.6 mg/dL (8.5-10.1); MAGNESIUM 2.5 mg/dL (1.8-2.4)
[2016-10-25 07:42] LABS: COCKROFT - GAULT 104.83; CREATININE 0.5 mg/dL (0.7-1.3); PHOSPHOROUS 3.3 mg/dL (2.5-4.9)
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
[2016-10-25] MEDS ORDERED: PT OWN MED DRAWER 7, Y5N ONE (08:37)
[2016-10-25 09:19] LABS: METAMYELOCYTE 1 % (0-2); PLATELET ESTIMATE ADEQUATE (NORMAL)
[2016-10-25] MEDS: PANTOPRAZOLE SOD 40 MG SUSPENSION PACKET GT SCH (10:24)
[2016-10-25] MEDS: HEPARIN NA (PORCINE) 5,000 UNITS/ML 1ML VIAL SQ SCH ×2 (10:24→21:09)
[2016-10-25] MEDS: VANCOMYCIN 1,250 MG in DEXTROSE 5%-WATER - 250 ML IVPB SCH (10:24)
[2016-10-25] MEDS: RANITIDINE HCL 150 MG/10 ML UNIT-DOSE CUP GT SCH ×2 (10:24→21:09)
--- NOTE | 2016-10-25 14:58 | PN ---
Progress Note, Physician Chief Complaint: Mr Nash says he had trouble sleeping last night secondary to productive cough. He says his mucous is light green but does not look like tube feeds. Denies fevers, chest pain, shortness of breath, abdominal pain, or nausea/ vomiting. - Current Medication List Current Medications: Active Medications Acetaminophen (Tylenol Oral Solution -) 650 mg GT Q6H PRN PRN Reason: FEVER OR PAIN Last Admin: 10/24/16 10:45 Dose: 650 mg Bisacodyl (Dulcolax Suppository -) 10 mg RC PRN PRN Diazepam (Valium -) 5 mg GT TID [facility] Last Admin: 10/25/16 13:32 Dose: 5 mg Docusate Sodium (Colace Liquid -) 300 mg GT HS [facility] Last Admin: 10/24/16 22:31 Dose: 300 mg Heparin Sodium (Porcine) (Heparin -) 5,000 unit SQ BID [facility] Last Admin: 10/25/16 10:24 Dose: Not Given Piperacillin Sod/Tazobactam Sod (Zosyn 3.375gm Ivpb (Pre-Docked)) 50 mls @ 100 mls/hr IVPB Q8H-IV [facility] PRN Reason: Protocol Last Admin: 10/25/16 10:24 Dose: 100 mls/hr Vancomycin HCl 1,250 mg/ (Dextrose) 250 mls @ 166.667 mls/hr IVPB DAILY [facility] PRN Reason: Protocol Last Admin: 10/25/16 10:24 Dose: 166.667 mls/hr Ondansetron HCl (Zofran Injection) 4 mg IVPB Q6H PRN PRN Reason: NAUSEA Last Admin: 10/18/16 11:29 Dose: 4 mg Pantoprazole Sodium (Protonix Packets For Oral Suspension -) 40 mg GT DAILY [facility] Last Admin: 10/25/16 10:24 Dose: 40 mg Polyethylene Glycol (Miralax (For Daily Use) -) 17 gm GT DAILY PRN PRN Reason: CONSTIPATION Ranitidine HCl (Zantac Oral Solution -) 150 mg GT BID [facility] Last Admin: 10/25/16 10:24 Dose: 150 mg Zolpidem Tartrate (Ambien -) 5 mg GT HS PRN PRN Reason: INSOMNIA Last Admin: 10/23/16 21:37 Dose: 5 mg - Objective Vital Signs: Vital Signs Temperature 97.8 F 10/25/16 10:00 Pulse Rate 67 10/25/16 10:00 Respiratory Rate 18 10/25/16 10:00 Blood Pressure 101/62 10/25/16 10:00 O2 Sat by Pulse Oximetry (%) 95 10/25/16 10:00 Constitutional: Yes: No Distress, Calm, Thin Cardiovascular: Yes: Regular Rate and Rhythm. No: Gallop, Murmur, Rub Respiratory: Yes: Regular, On Nasal O2, Rhonchi. No: Rales, Wheezes Gastrointestinal: Yes: Normal Bowel Sounds, Soft. No: Distention, Tenderness Extremities: Yes: WNL Edema: No Labs: CBC, BMP 10/25/16 05:35 10/25/16 05:35 INR, PTT INR 1.24 (0.82-1.09) H 10/18/16 00:57 Problem List - Problems (1) Cough with hemoptysis Code(s): R04.2 - HEMOPTYSIS (2) Sepsis Code(s): A41.9 - SEPSIS, UNSPECIFIED ORGANISM (3) Pneumonia Code(s): J18.9 - PNEUMONIA, UNSPECIFIED ORGANISM Qualifiers: (4) Dysphagia Code(s): R13.10 - DYSPHAGIA, UNSPECIFIED (5) COPD (chronic obstructive pulmonary disease) Code(s): J44.9 - CHRONIC OBSTRUCTIVE PULMONARY DISEASE, UNSPECIFIED Qualifiers : COPD type: COPD with acute exacerbation Qualified Code(s): J44.1 - Chronic obstructive pulmonary disease with (acute) exacerbation (6) Dystonia Code(s): G24.9 - DYSTONIA, UNSPECIFIED (7) GERD (gastroesophageal reflux disease) Code(s): K21.9 - GASTRO-ESOPHAGEAL REFLUX DISEASE WITHOUT ESOPHAGITIS (8) HTN (hypertension) Code(s): I10 - ESSENTIAL (PRIMARY) HYPERTENSION Qualifiers: Assessment/Plan (1) Cough with hemoptysis Assessment/Plan: -hemoptysis resolved but still with productive cough -continue antibiotics -appears that patient is not aspirating but will monitor as rate is increasing Code(s): R04.2 - HEMOPTYSIS (2) Sepsis Assessment/Plan: -continue antibiotics per ID -resolved Code(s): A41.9 - SEPSIS, UNSPECIFIED ORGANISM (3) Pneumonia Assessment/Plan: -ID following -continue zosyn -monitor for aspiration from tube feeds Code(s): J18.9 - PNEUMONIA, UNSPECIFIED ORGANISM Qualifiers: (4) Dysphagia Assessment/Plan: -tolerating continuous tube feeding -increased to 50mL Code(s): R13.10 - DYSPHAGIA, UNSPECIFIED (5) COPD (chronic obstructive pulmonary disease) Assessment/Plan: -secondary to pneumonia/aspiration -pulmonary following -continue home regimen Code(s): J44.9 - CHRONIC OBSTRUCTIVE PULMONARY DISEASE, UNSPECIFIED Qualifiers : COPD type: COPD with acute exacerbation Qualified Code(s): J44.1 - Chronic obstructive pulmonary disease with (acute) exacerbation (6) Dystonia Assessment/Plan: -continue home regimen Code(s): G24.9 - DYSTONIA, UNSPECIFIED (7) GERD (gastroesophageal reflux disease) Assessment/Plan: -continue protonix Code(s): K21.9 - GASTRO-ESOPHAGEAL REFLUX DISEASE WITHOUT ESOPHAGITIS (8) HTN (hypertension) Assessment/Plan: -well controlled Code(s): I10 - ESSENTIAL (PRIMARY) HYPERTENSION Qualifiers: (9) Depression -appreciate psychiatry evaluation (10) UTI -polymicrobial -ID following -on zosyn and vancomycin Note -there is a note from psychiatry on this patient about consideration of suicide. Note placed in error, meant for a different patient. Mr Nash is not suicidal.
--- NOTE | 2016-10-25 15:00 | PN ---
Progress Note (short form) - Note Progress Note: PULMONARY States cough is still productive of green sputum. No fevers or chills. Last Vital Signs Temp Pulse Resp BP Pulse Ox 97.8 F 67 18 101/62 95 10/25/16 10:00 10/25/16 10:00 10/25/16 10:00 10/25/16 10:00 10/25/16 10:00 Gen: NAD at rest Heart: RRR Lung: bilateral rhonchi Abd: soft, nontender, +suprapubic catheter Ext: no edema CBC, BMP 10/25/16 05:35 10/25/16 05:35 Active Medications Acetaminophen (Tylenol Oral Solution -) 650 mg GT Q6H PRN PRN Reason: FEVER OR PAIN Last Admin: 10/24/16 10:45 Dose: 650 mg Bisacodyl (Dulcolax Suppository -) 10 mg RC PRN PRN Diazepam (Valium -) 5 mg GT TID [facility] Last Admin: 10/25/16 13:32 Dose: 5 mg Docusate Sodium (Colace Liquid -) 300 mg GT HS [facility] Last Admin: 10/24/16 22:31 Dose: 300 mg Heparin Sodium (Porcine) (Heparin -) 5,000 unit SQ BID [facility] Last Admin: 10/25/16 10:24 Dose: Not Given Piperacillin Sod/Tazobactam Sod (Zosyn 3.375gm Ivpb (Pre-Docked)) 50 mls @ 100 mls/hr IVPB Q8H-IV [facility] PRN Reason: Protocol Last Admin: 10/25/16 10:24 Dose: 100 mls/hr Vancomycin HCl 1,250 mg/ (Dextrose) 250 mls @ 166.667 mls/hr IVPB DAILY [facility] PRN Reason: Protocol Last Admin: 10/25/16 10:24 Dose: 166.667 mls/hr Ondansetron HCl (Zofran Injection) 4 mg IVPB Q6H PRN PRN Reason: NAUSEA Last Admin: 10/18/16 11:29 Dose: 4 mg Pantoprazole Sodium (Protonix Packets For Oral Suspension -) 40 mg GT DAILY [facility] Last Admin: 10/25/16 10:24 Dose: 40 mg Polyethylene Glycol (Miralax (For Daily Use) -) 17 gm GT DAILY PRN PRN Reason: CONSTIPATION Ranitidine HCl (Zantac Oral Solution -) 150 mg GT BID [facility] Last Admin: 10/25/16 10:24 Dose: 150 mg Zolpidem Tartrate (Ambien -) 5 mg GT HS PRN PRN Reason: INSOMNIA Last Admin: 10/23/16 21:37 Dose: 5 mg A/P Likely Aspiration Pneumonia from enteral feeds Sepsis Hemoptysis Dystonia Dysphagia HTN - continue antibiotics - O2 as needed - enteral feeds - aspiration precautions - DVT prophylaxis Problem List - Problems (1) Pneumonia Code(s): J18.9 - PNEUMONIA, UNSPECIFIED ORGANISM Qualifiers: (2) Aspiration of formula Code(s): P24.30 - ASPIRAT OF MILK AND REGURGITATED FOOD W/O RESP SYMP (3) Hemoptysis Code(s): R04.2 - HEMOPTYSIS (4) Dysphagia Code(s): R13.10 - DYSPHAGIA, UNSPECIFIED (5) Dystonia Code(s): G24.9 - DYSTONIA, UNSPECIFIED (6) HTN (hypertension) Code(s): I10 - ESSENTIAL (PRIMARY) HYPERTENSION Qualifiers: (7) Suprapubic catheter Code(s): Z93.59 - OTHER CYSTOSTOMY STATUS (8) Urinary tract infection Code(s): N39.0 - URINARY TRACT INFECTION, SITE NOT SPECIFIED Qualifiers: Qualified Code(s): N30.00 - Acute cystitis without hematuria
--- NOTE | 2016-10-25 16:46 | PN ---
Progress Note, Physician History of Present Illness: stats that breathing is better still coughing alot and with greenish sputum no hemoptysis though - Current Medication List Current Medications: Active Medications Acetaminophen (Tylenol Oral Solution -) 650 mg GT Q6H PRN PRN Reason: FEVER OR PAIN Last Admin: 10/24/16 10:45 Dose: 650 mg Bisacodyl (Dulcolax Suppository -) 10 mg RC PRN PRN Diazepam (Valium -) 5 mg GT TID [facility] Last Admin: 10/25/16 13:32 Dose: 5 mg Docusate Sodium (Colace Liquid -) 300 mg GT HS [facility] Last Admin: 10/24/16 22:31 Dose: 300 mg Heparin Sodium (Porcine) (Heparin -) 5,000 unit SQ BID [facility] Last Admin: 10/25/16 10:24 Dose: Not Given Piperacillin Sod/Tazobactam Sod (Zosyn 3.375gm Ivpb (Pre-Docked)) 50 mls @ 100 mls/hr IVPB Q8H-IV [facility] PRN Reason: Protocol Last Admin: 10/25/16 10:24 Dose: 100 mls/hr Vancomycin HCl 1,250 mg/ (Dextrose) 250 mls @ 166.667 mls/hr IVPB DAILY [facility] PRN Reason: Protocol Last Admin: 10/25/16 10:24 Dose: 166.667 mls/hr Ondansetron HCl (Zofran Injection) 4 mg IVPB Q6H PRN PRN Reason: NAUSEA Last Admin: 10/18/16 11:29 Dose: 4 mg Pantoprazole Sodium (Protonix Packets For Oral Suspension -) 40 mg GT DAILY [facility] Last Admin: 10/25/16 10:24 Dose: 40 mg Polyethylene Glycol (Miralax (For Daily Use) -) 17 gm GT DAILY PRN PRN Reason: CONSTIPATION Ranitidine HCl (Zantac Oral Solution -) 150 mg GT BID [facility] Last Admin: 10/25/16 10:24 Dose: 150 mg Zolpidem Tartrate (Ambien -) 5 mg GT HS PRN PRN Reason: INSOMNIA Last Admin: 10/23/16 21:37 Dose: 5 mg - Objective Vital Signs: Vital Signs Temperature 97.7 F 10/25/16 14:40 Pulse Rate 61 10/25/16 14:40 Respiratory Rate 18 10/25/16 14:40 Blood Pressure 110/54 10/25/16 14:40 O2 Sat by Pulse Oximetry (%) 95 10/25/16 10:00 Constitutional: Yes: No Distress, Calm Cardiovascular: Yes: Regular Rate and Rhythm Respiratory: Yes: Poor Air Entry, Rhonchi Gastrointestinal: Yes: Normal Bowel Sounds, Soft, Other (peg in place) Musculoskeletal: Yes: Other Extremities: Yes: Other Neurological: Yes: Alert, Oriented Psychiatric: Yes: Alert Labs: CBC, BMP 10/25/16 05:35 10/25/16 05:35 INR, PTT INR 1.24 (0.82-1.09) H 10/18/16 00:57 Assessment/Plan Problems (1) Cough with hemoptysis Code(s): R04.2 - HEMOPTYSIS (2) Sepsis Code(s): A41.9 - SEPSIS, UNSPECIFIED ORGANISM (3) Pneumonia Code(s): J18.9 - PNEUMONIA, UNSPECIFIED ORGANISM Qualifiers: (4) Dysphagia Code(s): R13.10 - DYSPHAGIA, UNSPECIFIED (5) COPD (chronic obstructive pulmonary disease) Code(s): J44.9 - CHRONIC OBSTRUCTIVE PULMONARY DISEASE, UNSPECIFIED Qualifiers : COPD type: COPD with acute exacerbation Qualified Code(s): J44.1 - Chronic obstructive pulmonary disease with (acute) exacerbation (6) Dystonia Code(s): G24.9 - DYSTONIA, UNSPECIFIED (7) GERD (gastroesophageal reflux disease) Code(s): K21.9 - GASTRO-ESOPHAGEAL REFLUX DISEASE WITHOUT ESOPHAGITIS (8) HTN (hypertension) Code(s): I10 - ESSENTIAL (PRIMARY) HYPERTENSION Qualifiers: uti mrsa,multibacterial plan continue current abx no vanco trough noted will find out why vanco tough was not done rest ct currnt mgmt
[2016-10-25] MEDS: ZOLPIDEM TARTRATE 5 MG TABLET GT PRN (21:09)
[2016-10-25] MEDS: DOCUSATE NA 100 MG/10 ML UNIT-DOSE CUPS GT SCH (21:09)
[2016-10-26] MEDS: PIPERACILLIN/TAZOB 3.375 GM 50 ML IVPB SCH ×3 (01:04→17:26)
[2016-10-26 06:49] LABS: MCH 33.9 pg (25.7-33.7); MCHC 34.4 g/dl (32.0-35.9); MEAN CELL VOLUME 98.6 fl (80-96); MEAN PLT VOLUME 7.4 fl (7.5-11.1); PLATELET COUNT 325 K/MM3 (134-434); WHITE BLOOD COUNT 6.5 K/mm3 (4.0-10.0)
[2016-10-26] MEDS: diazePAM 5 MG TABLET GT SCH ×3 (07:03→21:09)
[2016-10-26 07:16] LABS: CALCIUM 8.4 mg/dL (8.5-10.1); COCKROFT - GAULT 104.83; CREATININE 0.5 mg/dL (0.7-1.3); MAGNESIUM 2.5 mg/dL (1.8-2.4); PHOSPHOROUS 3.4 mg/dL (2.5-4.9)
[2016-10-26 09:25] LABS: METAMYELOCYTE 3 % (0-2); PLATELET ESTIMATE ADEQUATE (NORMAL)
[2016-10-26] MEDS: HEPARIN NA (PORCINE) 5,000 UNITS/ML 1ML VIAL SQ SCH ×2 (09:36→21:21)
[2016-10-26] MEDS: PANTOPRAZOLE SOD 40 MG SUSPENSION PACKET GT SCH (09:40)
[2016-10-26] MEDS: RANITIDINE HCL 150 MG/10 ML UNIT-DOSE CUP GT SCH ×2 (09:40→21:10)
[2016-10-26] MEDS: VANCOMYCIN 1,250 MG in DEXTROSE 5%-WATER - 250 ML IVPB SCH (10:40)
--- NOTE | 2016-10-26 11:14 | PN ---
Progress Note, Physician Chief Complaint: Mr Nash is still having cough with green sputum, says he does not notice any change as of yet. Also noted small amount of wheezing last night. No cp, sob , n/v. - Current Medication List Current Medications: Active Medications Acetaminophen (Tylenol Oral Solution -) 650 mg GT Q6H PRN PRN Reason: FEVER OR PAIN Last Admin: 10/24/16 10:45 Dose: 650 mg Bisacodyl (Dulcolax Suppository -) 10 mg RC PRN PRN Diazepam (Valium -) 5 mg GT TID [facility] Last Admin: 10/26/16 07:03 Dose: 5 mg Docusate Sodium (Colace Liquid -) 300 mg GT HS ESVIN Last Admin: 10/25/16 21:09 Dose: 300 mg Heparin Sodium (Porcine) (Heparin -) 5,000 unit SQ BID [facility] Last Admin: 10/26/16 09:36 Dose: Not Given Piperacillin Sod/Tazobactam Sod (Zosyn 3.375gm Ivpb (Pre-Docked)) 50 mls @ 100 mls/hr IVPB Q8H-IV ESVIN PRN Reason: Protocol Last Admin: 10/26/16 09:40 Dose: 100 mls/hr Vancomycin HCl 1,250 mg/ (Dextrose) 250 mls @ 166.667 mls/hr IVPB DAILY ESVIN PRN Reason: Protocol Last Admin: 10/26/16 10:40 Dose: 166.667 mls/hr Ondansetron HCl (Zofran Injection) 4 mg IVPB Q6H PRN PRN Reason: NAUSEA Last Admin: 10/18/16 11:29 Dose: 4 mg Pantoprazole Sodium (Protonix Packets For Oral Suspension -) 40 mg GT DAILY [facility] Last Admin: 10/26/16 09:40 Dose: 40 mg Polyethylene Glycol (Miralax (For Daily Use) -) 17 gm GT DAILY PRN PRN Reason: CONSTIPATION Ranitidine HCl (Zantac Oral Solution -) 150 mg GT BID [facility] Last Admin: 10/26/16 09:40 Dose: 150 mg Zolpidem Tartrate (Ambien -) 5 mg GT HS PRN PRN Reason: INSOMNIA Last Admin: 10/25/16 21:09 Dose: 5 mg - Objective Vital Signs: Vital Signs Temperature 97.8 F 10/26/16 09:35 Pulse Rate 77 10/26/16 09:35 Respiratory Rate 19 10/26/16 09:35 Blood Pressure 109/77 10/26/16 09:35 O2 Sat by Pulse Oximetry (%) 97 10/25/16 22:00 Constitutional: Yes: No Distress, Calm, Thin Cardiovascular: Yes: Regular Rate and Rhythm. No: Gallop, Murmur, Rub Respiratory: Yes: Regular, On Nasal O2, Rhonchi, Wheezes. No: CTA Bilaterally Gastrointestinal: Yes: Normal Bowel Sounds, Soft. No: Distention, Tenderness Extremities: Yes: WNL Edema: No Labs: CBC, BMP 10/26/16 05:35 10/26/16 05:35 INR, PTT INR 1.24 (0.82-1.09) H 10/18/16 00:57 Problem List - Problems (1) Cough with hemoptysis Code(s): R04.2 - HEMOPTYSIS (2) Sepsis Code(s): A41.9 - SEPSIS, UNSPECIFIED ORGANISM (3) Pneumonia Code(s): J18.9 - PNEUMONIA, UNSPECIFIED ORGANISM Qualifiers: (4) Dysphagia Code(s): R13.10 - DYSPHAGIA, UNSPECIFIED (5) COPD (chronic obstructive pulmonary disease) Code(s): J44.9 - CHRONIC OBSTRUCTIVE PULMONARY DISEASE, UNSPECIFIED Qualifiers : COPD type: COPD with acute exacerbation Qualified Code(s): J44.1 - Chronic obstructive pulmonary disease with (acute) exacerbation (6) Dystonia Code(s): G24.9 - DYSTONIA, UNSPECIFIED (7) GERD (gastroesophageal reflux disease) Code(s): K21.9 - GASTRO-ESOPHAGEAL REFLUX DISEASE WITHOUT ESOPHAGITIS (8) HTN (hypertension) Code(s): I10 - ESSENTIAL (PRIMARY) HYPERTENSION Qualifiers: Assessment/Plan (1) Cough with hemoptysis Assessment/Plan: -hemoptysis resolved but still with productive cough -continue antibiotics -appears that patient is not aspirating but will monitor as rate is increasing -case d/w pulmonary, productive cough is chronic Code(s): R04.2 - HEMOPTYSIS (2) Sepsis Assessment/Plan: -continue antibiotics per ID -resolved Code(s): A41.9 - SEPSIS, UNSPECIFIED ORGANISM (3) Pneumonia Assessment/Plan: -ID following -continue zosyn -monitor for aspiration from tube feeds Code(s): J18.9 - PNEUMONIA, UNSPECIFIED ORGANISM Qualifiers: (4) Dysphagia Assessment/Plan: -tolerating continuous tube feeding -increased to 50mL Code(s): R13.10 - DYSPHAGIA, UNSPECIFIED (5) COPD (chronic obstructive pulmonary disease) Assessment/Plan: -suspect at baseline -pulmonary following -continue current management Code(s): J44.9 - CHRONIC OBSTRUCTIVE PULMONARY DISEASE, UNSPECIFIED Qualifiers : COPD type: COPD with acute exacerbation Qualified Code(s): J44.1 - Chronic obstructive pulmonary disease with (acute) exacerbation (6) Dystonia Assessment/Plan: -continue home regimen Code(s): G24.9 - DYSTONIA, UNSPECIFIED (7) GERD (gastroesophageal reflux disease) Assessment/Plan: -continue protonix Code(s): K21.9 - GASTRO-ESOPHAGEAL REFLUX DISEASE WITHOUT ESOPHAGITIS (8) HTN (hypertension) Assessment/Plan: -well controlled Code(s): I10 - ESSENTIAL (PRIMARY) HYPERTENSION Qualifiers: (9) Depression -appreciate psychiatry evaluation (10) UTI -polymicrobial -ID following -on zosyn and vancomycin
--- NOTE | 2016-10-26 13:08 | PN ---
Progress Note, Physician History of Present Illness: pulmonary alert,feels more congested,-hemoptysis,afebrile - Current Medication List Current Medications: Active Medications Acetaminophen (Tylenol Oral Solution -) 650 mg GT Q6H PRN PRN Reason: FEVER OR PAIN Last Admin: 10/24/16 10:45 Dose: 650 mg Bisacodyl (Dulcolax Suppository -) 10 mg RC PRN PRN Diazepam (Valium -) 5 mg GT TID [facility] Last Admin: 10/26/16 07:03 Dose: 5 mg Docusate Sodium (Colace Liquid -) 300 mg GT HS ESVIN Last Admin: 10/25/16 21:09 Dose: 300 mg Heparin Sodium (Porcine) (Heparin -) 5,000 unit SQ BID [facility] Last Admin: 10/26/16 09:36 Dose: Not Given Piperacillin Sod/Tazobactam Sod (Zosyn 3.375gm Ivpb (Pre-Docked)) 50 mls @ 100 mls/hr IVPB Q8H-IV ESVIN PRN Reason: Protocol Last Admin: 10/26/16 09:40 Dose: 100 mls/hr Vancomycin HCl 1,250 mg/ (Dextrose) 250 mls @ 166.667 mls/hr IVPB DAILY E[facility]IN PRN Reason: Protocol Last Admin: 10/26/16 10:40 Dose: 166.667 mls/hr Ondansetron HCl (Zofran Injection) 4 mg IVPB Q6H PRN PRN Reason: NAUSEA Last Admin: 10/18/16 11:29 Dose: 4 mg Pantoprazole Sodium (Protonix Packets For Oral Suspension -) 40 mg GT DAILY [facility] Last Admin: 10/26/16 09:40 Dose: 40 mg Polyethylene Glycol (Miralax (For Daily Use) -) 17 gm GT DAILY PRN PRN Reason: CONSTIPATION Ranitidine HCl (Zantac Oral Solution -) 150 mg GT BID [facility] Last Admin: 10/26/16 09:40 Dose: 150 mg Zolpidem Tartrate (Ambien -) 5 mg GT HS PRN PRN Reason: INSOMNIA Last Admin: 10/25/16 21:09 Dose: 5 mg - Objective Vital Signs: Vital Signs Temperature 97.8 F 10/26/16 09:35 Pulse Rate 77 10/26/16 09:35 Respiratory Rate 19 10/26/16 09:35 Blood Pressure 109/77 10/26/16 09:35 O2 Sat by Pulse Oximetry (%) 97 10/25/16 22:00 Constitutional: Yes: Calm, Cachectic Eyes: Yes: WNL HENT: Yes: WNL Neck: Yes: WNL Cardiovascular: Yes: Regular Rate and Rhythm, S1, S2 Respiratory: Yes: Rhonchi (scattered jacquelyn rhonchi) Gastrointestinal: Yes: Normal Bowel Sounds, Soft, Other (+GT) Extremities: Yes: WNL Edema: No Labs: CBC, BMP 10/26/16 05:35 10/26/16 05:35 INR, PTT INR 1.24 (0.82-1.09) H 10/18/16 00:57 Assessment/Plan Problem List - Problems (1) Pneumonia Code(s): J18.9 - PNEUMONIA, UNSPECIFIED ORGANISM Qualifiers: (2) Aspiration of formula Code(s): P24.30 - ASPIRAT OF MILK AND REGURGITATED FOOD W/O RESP SYMP (3) Hemoptysis Code(s): R04.2 - HEMOPTYSIS (4) Dysphagia Code(s): R13.10 - DYSPHAGIA, UNSPECIFIED (5) Dystonia Code(s): G24.9 - DYSTONIA, UNSPECIFIED (6) HTN (hypertension) Code(s): I10 - ESSENTIAL (PRIMARY) HYPERTENSION Qualifiers: (7) Suprapubic catheter Code(s): Z93.59 - OTHER CYSTOSTOMY STATUS (8) Urinary tract infection Code(s): N39.0 - URINARY TRACT INFECTION, SITE NOT SPECIFIED Qualifiers: Urinary tract infection type: acute cystitis Hematuria presence: without hematuria Qualified Code(s): N30.00 - Acute cystitis without hematuria Assessment/Plan Likely Aspiration Pneumonia from enteral feeds Sepsis Hemoptysis resolved Dystonia Dysphagia HTN - IV antibiotics as per ID - O2 as needed - aspiration precautions - DVT prophylaxis - continuos gt feeds - chest x-ray today - inhaled bronchodilators DR MURDOCK
[2016-10-26] MEDS ORDERED: ALBUTEROL SO4 2.5/IPRATROPIUM 0.5 INH SOL 3 ML VIAL.NEB. NEB PRN (13:09)
[2016-10-26] MEDS: ARFORMOTEROL TARTRATE 15 MCG/2 ML VIAL NEB SCH ×2 (14:49→21:37)
[2016-10-26] MEDS: DOCUSATE NA 100 MG/10 ML UNIT-DOSE CUPS GT SCH ×2 (21:10→21:21)
[2016-10-26] MEDS: ZOLPIDEM TARTRATE 5 MG TABLET GT PRN (21:20)
[2016-10-27] MEDS: PIPERACILLIN/TAZOB 3.375 GM 50 ML IVPB SCH ×3 (01:22→17:35)
[2016-10-27] MEDS: diazePAM 5 MG TABLET GT SCH ×3 (05:03→21:01)
[2016-10-27 07:35] LABS: MCH 33.8 pg (25.7-33.7); MCHC 34.6 g/dl (32.0-35.9); MEAN CELL VOLUME 97.7 fl (80-96); MEAN PLT VOLUME 7.5 fl (7.5-11.1); PLATELET COUNT 332 K/MM3 (134-434); WHITE BLOOD COUNT 7.8 K/mm3 (4.0-10.0)
[2016-10-27 08:02] LABS: CALCIUM 8.5 mg/dL (8.5-10.1); MAGNESIUM 2.5 mg/dL (1.8-2.4)
[2016-10-27 08:03] LABS: COCKROFT - GAULT 104.83; CREATININE 0.5 mg/dL (0.7-1.3); PHOSPHOROUS 4.1 mg/dL (2.5-4.9)
[2016-10-27 08:54] LABS: METAMYELOCYTE 1 % (0-2); PLATELET ESTIMATE ADEQUATE (NORMAL)
[2016-10-27] MEDS: HEPARIN NA (PORCINE) 5,000 UNITS/ML 1ML VIAL SQ SCH ×2 (09:14→21:02)
[2016-10-27] MEDS: RANITIDINE HCL 150 MG/10 ML UNIT-DOSE CUP GT SCH ×2 (09:18→21:02)
[2016-10-27] MEDS: PANTOPRAZOLE SOD 40 MG SUSPENSION PACKET GT SCH (09:18)
--- NOTE | 2016-10-27 09:50 | PN ---
Progress Note (short form) - Note Progress Note: PATIENT IN BED / NO DISTRESS . DYSTONIC MOVEMENTS. ADMITTED WITH PNEUMONIA / SEPSIS / COPD . ON AB . Selected Entries 10/27/16 09:00 Temperature 97.8 F Pulse Rate 65 Respiratory 19 Rate Blood Pressure 115/75 Blood Pressure 88 Mean Laboratory Tests 10/18/16 10/18/16 10/25/16 01:40 07:25 09:20 WBC RBC Hgb Hct MCV MCHC RDW Plt Count MPV Neutrophils % Lymphocytes % Monocytes % Band Neutrophils ABG pH 7.44 ABG pCO2 at Pt Temp 36.6 D ABG pO2 at Pt Temp 92.5 ABG HCO3 24.2 ABG O2 Sat (Measured) 98.2 ABG O2 Content 16.6 ABG Base Excess 1.2 Sodium Potassium Chloride Carbon Dioxide Anion Gap BUN Creatinine Random Glucose Calcium Phosphorus Magnesium Urine Color Yellow Urine Appearance Slcloudy Urine pH 7.0 D Ur Specific Salome 1.015 Urine Protein 1+ H Urine Glucose (UA) Negative Urine Ketones Negative Urine Blood Negative Urine Nitrite Negative Urine Bilirubin Negative Urine Urobilinogen Negative Ur Leukocyte Esterase 3+ H Urine RBC 9 Urine WBC 24 Ur Epithelial Cells Rare Urine Mucus Rare Vancomycin Pre-Dose 5.194 D 10/27/16 10/27/16 06:00 06:00 WBC 7.8 RBC 3.70 L Hgb 12.5 Hct 36.1 MCV 97.7 H MCHC 34.6 RDW 13.0 Plt Count 332 MPV 7.5 Neutrophils % 61.0 Lymphocytes % 20.0 D Monocytes % 16.0 H Band Neutrophils 2.0 D ABG pH ABG pCO2 at Pt Temp ABG pO2 at Pt Temp ABG HCO3 ABG O2 Sat (Measured) ABG O2 Content ABG Base Excess Sodium 141 Potassium 4.1 Chloride 100 Carbon Dioxide 34 H Anion Gap 7 L BUN 12 Creatinine 0.5 L Random Glucose 96 Calcium 8.5 Phosphorus 4.1 D Magnesium 2.5 H Urine Color Urine Appearance Urine pH Ur Specific Salome Urine Protein Urine Glucose (UA) Urine Ketones Urine Blood Urine Nitrite Urine Bilirubin Urine Urobilinogen Ur Leukocyte Esterase Urine RBC Urine WBC Ur Epithelial Cells Urine Mucus Vancomycin Pre-Dose P/E : CLAIMS NO DISTRESS HEENT <> CAROTIDS > NO BRUITS. COR <> S 1 S 2 // HS DISTANT CHEST <> FEW SCATTERED RHONCHI ABD <> SOFT / NONTENDER EXT <> NO EDEMA. IMP: PNEUMONIA HEMOPTYSIS SEPSIS COPD HTN DYSTONIA PLAN <>< IV AB > INHALED BRONCHODILATORS PULMONARY FOLLOWUP. DVT PROPHYLAXIS
[2016-10-27] MEDS: VANCOMYCIN 1,250 MG in DEXTROSE 5%-WATER - 250 ML IVPB SCH (10:51)
[2016-10-27] MEDS: ARFORMOTEROL TARTRATE 15 MCG/2 ML VIAL NEB SCH ×2 (11:45→22:00)
--- NOTE | 2016-10-27 13:37 | PN ---
Progress Note (short form) - Note Progress Note: PULMONARY States cough is still productive of green sputum. No fevers or chills. Last Vital Signs Temp Pulse Resp BP Pulse Ox 97.8 F 65 19 115/75 95 10/27/16 09:00 10/27/16 09:00 10/27/16 09:00 10/27/16 09:00 10/26/16 22:00 Gen: NAD at rest Heart: RRR Lung: bilateral rhonchi Abd: soft, nontender, +suprapubic catheter Ext: no edema CBC, BMP 10/27/16 06:00 10/27/16 06:00 Active Medications Acetaminophen (Tylenol Oral Solution -) 650 mg GT Q6H PRN PRN Reason: FEVER OR PAIN Last Admin: 10/24/16 10:45 Dose: 650 mg Albuterol/Ipratropium (Duoneb -) 1 amp NEB Q4H PRN PRN Reason: SHORTNESS OF BREATH Arformoterol Tartrate (Brovana (Restricted To Pulmonology/Resp) -) 1 amp NEB BID [facility] Last Admin: 10/27/16 11:45 Dose: 1 amp Bisacodyl (Dulcolax Suppository -) 10 mg RC PRN PRN Diazepam (Valium -) 5 mg GT TID [facility]SV[facility] Last Admin: 10/27/16 05:03 Dose: 5 mg Docusate Sodium (Colace Liquid -) 300 mg GT HS [facility] Last Admin: 10/26/16 21:21 Dose: Not Given Heparin Sodium (Porcine) (Heparin -) 5,000 unit SQ BID [facility] Last Admin: 10/27/16 09:14 Dose: Not Given Piperacillin Sod/Tazobactam Sod (Zosyn 3.375gm Ivpb (Pre-Docked)) 50 mls @ 100 mls/hr IVPB Q8H-IV ESVIN PRN Reason: Protocol Last Admin: 10/27/16 09:17 Dose: 100 mls/hr Vancomycin HCl 1,250 mg/ (Dextrose) 250 mls @ 166.667 mls/hr IVPB DAILY E[facility]IN PRN Reason: Protocol Last Admin: 10/27/16 10:51 Dose: 166.667 mls/hr Ondansetron HCl (Zofran Injection) 4 mg IVPB Q6H PRN PRN Reason: NAUSEA Last Admin: 10/18/16 11:29 Dose: 4 mg Pantoprazole Sodium (Protonix Packets For Oral Suspension -) 40 mg GT DAILY [facility] Last Admin: 10/27/16 09:18 Dose: 40 mg Polyethylene Glycol (Miralax (For Daily Use) -) 17 gm GT DAILY PRN PRN Reason: CONSTIPATION Ranitidine HCl (Zantac Oral Solution -) 150 mg GT BID [facility] Last Admin: 10/27/16 09:18 Dose: 150 mg Zolpidem Tartrate (Ambien -) 5 mg GT HS PRN PRN Reason: INSOMNIA Last Admin: 10/26/16 21:20 Dose: 5 mg A/P Likely Aspiration Pneumonia from enteral feeds Sepsis resolved Hemoptysis resolved Dystonia Dysphagia HTN - complete antibiotics - O2 as needed - enteral feeds - aspiration precautions - DVT prophylaxis Problem List - Problems (1) Pneumonia Code(s): J18.9 - PNEUMONIA, UNSPECIFIED ORGANISM Qualifiers: (2) Aspiration of formula Code(s): P24.30 - ASPIRAT OF MILK AND REGURGITATED FOOD W/O RESP SYMP (3) Hemoptysis Code(s): R04.2 - HEMOPTYSIS (4) Dysphagia Code(s): R13.10 - DYSPHAGIA, UNSPECIFIED (5) Dystonia Code(s): G24.9 - DYSTONIA, UNSPECIFIED (6) HTN (hypertension) Code(s): I10 - ESSENTIAL (PRIMARY) HYPERTENSION Qualifiers: (7) Suprapubic catheter Code(s): Z93.59 - OTHER CYSTOSTOMY STATUS (8) Urinary tract infection Code(s): N39.0 - URINARY TRACT INFECTION, SITE NOT SPECIFIED Qualifiers: Urinary tract infection type: acute cystitis Hematuria presence: without hematuria Qualified Code(s): N30.00 - Acute cystitis without hematuria
--- NOTE | 2016-10-27 15:52 | PN ---
Progress Note, Physician History of Present Illness: improving weak still coughing - Current Medication List Current Medications: Active Medications Acetaminophen (Tylenol Oral Solution -) 650 mg GT Q6H PRN PRN Reason: FEVER OR PAIN Last Admin: 10/24/16 10:45 Dose: 650 mg Albuterol/Ipratropium (Duoneb -) 1 amp NEB Q4H PRN PRN Reason: SHORTNESS OF BREATH Arformoterol Tartrate (Brovana (Restricted To Pulmonology/Resp) -) 1 amp NEB BID [facility] Last Admin: 10/27/16 11:45 Dose: 1 amp Bisacodyl (Dulcolax Suppository -) 10 mg RC PRN PRN Diazepam (Valium -) 5 mg GT TID [facility] Last Admin: 10/27/16 14:11 Dose: 5 mg Docusate Sodium (Colace Liquid -) 300 mg GT HS [facility] Last Admin: 10/26/16 21:21 Dose: Not Given Heparin Sodium (Porcine) (Heparin -) 5,000 unit SQ BID [facility] Last Admin: 10/27/16 09:14 Dose: Not Given Piperacillin Sod/Tazobactam Sod (Zosyn 3.375gm Ivpb (Pre-Docked)) 50 mls @ 100 mls/hr IVPB Q8H-IV ESVIN PRN Reason: Protocol Last Admin: 10/27/16 09:17 Dose: 100 mls/hr Vancomycin HCl 1,250 mg/ (Dextrose) 250 mls @ 166.667 mls/hr IVPB DAILY [facility] PRN Reason: Protocol Last Admin: 10/27/16 10:51 Dose: 166.667 mls/hr Ondansetron HCl (Zofran Injection) 4 mg IVPB Q6H PRN PRN Reason: NAUSEA Last Admin: 10/18/16 11:29 Dose: 4 mg Pantoprazole Sodium (Protonix Packets For Oral Suspension -) 40 mg GT DAILY [facility] Last Admin: 10/27/16 09:18 Dose: 40 mg Polyethylene Glycol (Miralax (For Daily Use) -) 17 gm GT DAILY PRN PRN Reason: CONSTIPATION Ranitidine HCl (Zantac Oral Solution -) 150 mg GT BID [facility] Last Admin: 10/27/16 09:18 Dose: 150 mg Zolpidem Tartrate (Ambien -) 5 mg GT HS PRN PRN Reason: INSOMNIA Last Admin: 10/26/16 21:20 Dose: 5 mg - Objective Vital Signs: Vital Signs Temperature 98.3 F 10/27/16 13:00 Pulse Rate 71 10/27/16 13:00 Respiratory Rate 18 10/27/16 13:00 Blood Pressure 117/69 10/27/16 13:00 O2 Sat by Pulse Oximetry (%) 98 10/27/16 10:00 Constitutional: Yes: No Distress, Calm Cardiovascular: Yes: Regular Rate and Rhythm Respiratory: Yes: Regular, CTA Bilaterally Gastrointestinal: Yes: Normal Bowel Sounds, Soft, Other (peg in place) Musculoskeletal: Yes: Other Extremities: Yes: Other Neurological: Yes: Alert, Oriented Psychiatric: Yes: Alert Labs: CBC, BMP 10/27/16 06:00 10/27/16 06:00 INR, PTT INR 1.24 (0.82-1.09) H 10/18/16 00:57 Assessment/Plan Problems (1) Cough with hemoptysis Code(s): R04.2 - HEMOPTYSIS (2) Sepsis Code(s): A41.9 - SEPSIS, UNSPECIFIED ORGANISM (3) Pneumonia Code(s): J18.9 - PNEUMONIA, UNSPECIFIED ORGANISM Qualifiers: (4) Dysphagia Code(s): R13.10 - DYSPHAGIA, UNSPECIFIED (5) COPD (chronic obstructive pulmonary disease) Code(s): J44.9 - CHRONIC OBSTRUCTIVE PULMONARY DISEASE, UNSPECIFIED Qualifiers : COPD type: COPD with acute exacerbation Qualified Code(s): J44.1 - Chronic obstructive pulmonary disease with (acute) exacerbation (6) Dystonia Code(s): G24.9 - DYSTONIA, UNSPECIFIED (7) GERD (gastroesophageal reflux disease) Code(s): K21.9 - GASTRO-ESOPHAGEAL REFLUX DISEASE WITHOUT ESOPHAGITIS (8) HTN (hypertension) Code(s): I10 - ESSENTIAL (PRIMARY) HYPERTENSION Qualifiers: uti mrsa,multibacterial plan continue current abx vanco trough noted continue current mgmt rest as per primary team
--- NOTE | 2016-10-27 15:54 | PN ---
Progress Note, Physician History of Present Illness: patient still with cough no other issues weak - Current Medication List Current Medications: Active Medications Acetaminophen (Tylenol Oral Solution -) 650 mg GT Q6H PRN PRN Reason: FEVER OR PAIN Last Admin: 10/24/16 10:45 Dose: 650 mg Albuterol/Ipratropium (Duoneb -) 1 amp NEB Q4H PRN PRN Reason: SHORTNESS OF BREATH Arformoterol Tartrate (Brovana (Restricted To Pulmonology/Resp) -) 1 amp NEB BID [facility] Last Admin: 10/27/16 11:45 Dose: 1 amp Bisacodyl (Dulcolax Suppository -) 10 mg RC PRN PRN Diazepam (Valium -) 5 mg GT TID [facility] Last Admin: 10/27/16 14:11 Dose: 5 mg Docusate Sodium (Colace Liquid -) 300 mg GT HS [facility] Last Admin: 10/26/16 21:21 Dose: Not Given Heparin Sodium (Porcine) (Heparin -) 5,000 unit SQ BID [facility] Last Admin: 10/27/16 09:14 Dose: Not Given Piperacillin Sod/Tazobactam Sod (Zosyn 3.375gm Ivpb (Pre-Docked)) 50 mls @ 100 mls/hr IVPB Q8H-IV ESVIN PRN Reason: Protocol Last Admin: 10/27/16 09:17 Dose: 100 mls/hr Vancomycin HCl 1,250 mg/ (Dextrose) 250 mls @ 166.667 mls/hr IVPB DAILY [facility] PRN Reason: Protocol Last Admin: 10/27/16 10:51 Dose: 166.667 mls/hr Ondansetron HCl (Zofran Injection) 4 mg IVPB Q6H PRN PRN Reason: NAUSEA Last Admin: 10/18/16 11:29 Dose: 4 mg Pantoprazole Sodium (Protonix Packets For Oral Suspension -) 40 mg GT DAILY [facility] Last Admin: 10/27/16 09:18 Dose: 40 mg Polyethylene Glycol (Miralax (For Daily Use) -) 17 gm GT DAILY PRN PRN Reason: CONSTIPATION Ranitidine HCl (Zantac Oral Solution -) 150 mg GT BID [facility] Last Admin: 10/27/16 09:18 Dose: 150 mg Zolpidem Tartrate (Ambien -) 5 mg GT HS PRN PRN Reason: INSOMNIA Last Admin: 10/26/16 21:20 Dose: 5 mg - Objective Vital Signs: Vital Signs Temperature 98.3 F 10/27/16 13:00 Pulse Rate 71 10/27/16 13:00 Respiratory Rate 18 10/27/16 13:00 Blood Pressure 117/69 10/27/16 13:00 O2 Sat by Pulse Oximetry (%) 98 10/27/16 10:00 Constitutional: Yes: No Distress, Calm Cardiovascular: Yes: Regular Rate and Rhythm Respiratory: Yes: Regular, On Nasal O2, Rhonchi Gastrointestinal: Yes: Normal Bowel Sounds, Soft, Other (peg) Musculoskeletal: Yes: Other Extremities: Yes: WNL, Other Neurological: Yes: Alert, Oriented Psychiatric: Yes: Alert Labs: CBC, BMP 10/27/16 06:00 10/27/16 06:00 INR, PTT INR 1.24 (0.82-1.09) H 10/18/16 00:57 Assessment/Plan Problems (1) Cough with hemoptysis Code(s): R04.2 - HEMOPTYSIS (2) Sepsis Code(s): A41.9 - SEPSIS, UNSPECIFIED ORGANISM (3) Pneumonia Code(s): J18.9 - PNEUMONIA, UNSPECIFIED ORGANISM Qualifiers: (4) Dysphagia Code(s): R13.10 - DYSPHAGIA, UNSPECIFIED (5) COPD (chronic obstructive pulmonary disease) Code(s): J44.9 - CHRONIC OBSTRUCTIVE PULMONARY DISEASE, UNSPECIFIED Qualifiers : COPD type: COPD with acute exacerbation Qualified Code(s): J44.1 - Chronic obstructive pulmonary disease with (acute) exacerbation (6) Dystonia Code(s): G24.9 - DYSTONIA, UNSPECIFIED (7) GERD (gastroesophageal reflux disease) Code(s): K21.9 - GASTRO-ESOPHAGEAL REFLUX DISEASE WITHOUT ESOPHAGITIS (8) HTN (hypertension) Code(s): I10 - ESSENTIAL (PRIMARY) HYPERTENSION Qualifiers: uti mrsa,multibacterial plan continue current abx vanco trough noted will start tapering abx from sat or saturday and as clinical improvement continues
[2016-10-27] MEDS: ZOLPIDEM TARTRATE 5 MG TABLET GT PRN (21:01)
[2016-10-27] MEDS: DOCUSATE NA 100 MG/10 ML UNIT-DOSE CUPS GT SCH (21:02)
[2016-10-28] MEDS: PIPERACILLIN/TAZOB 3.375 GM 50 ML IVPB SCH ×3 (02:25→17:50)
[2016-10-28] MEDS: diazePAM 5 MG TABLET GT SCH ×3 (05:09→21:12)
--- NOTE | 2016-10-28 08:30 | PN ---
Progress Note (short form) - Note Progress Note: PATIENT DYSTONIC / NO RESPIRATORY DISTRESS / NO COUGH / DENIES CP. Selected Entries 10/28/16 05:00 Temperature 98.2 F Pulse Rate 77 Respiratory 19 Rate Blood Pressure 110/66 Laboratory Tests 10/27/16 10/27/16 06:00 06:00 WBC 7.8 RBC 3.70 L Hgb 12.5 Hct 36.1 Plt Count 332 Sodium 141 Potassium 4.1 Chloride 100 Carbon Dioxide 34 H Anion Gap 7 L BUN 12 Creatinine 0.5 L Random Glucose 96 Calcium 8.5 Phosphorus 4.1 D Magnesium 2.5 H Selected Entries Laboratory Tests P/E : COMFORTABLE IN BED / NO DISTRESS . HEENT <> CAROTIDS > NO BRUITS. COR <> S 1 S 2 // HS DISTANT CHEST <> FEW SCATTERED RHONCHI ABD <> SOFT / NONTENDER EXT <> NO EDEMA. IMP: PNEUMONIA / POSSIBLE ASPIRATION FROM ENTERAL FEEDINGS . HEMOPTYSIS SEPSIS COPD HTN DYSTONIA PLAN > > CONTINUE IV AB PER I.D. CONTINUE INHALED BRONCHODILATORS. DVT PROPHYLAXIS
[2016-10-28] MEDS: RANITIDINE HCL 150 MG/10 ML UNIT-DOSE CUP GT SCH ×2 (09:33→21:13)
[2016-10-28] MEDS: PANTOPRAZOLE SOD 40 MG SUSPENSION PACKET GT SCH (09:33)
[2016-10-28] MEDS: ARFORMOTEROL TARTRATE 15 MCG/2 ML VIAL NEB SCH (10:35)
[2016-10-28] MEDS: HEPARIN NA (PORCINE) 5,000 UNITS/ML 1ML VIAL SQ SCH ×2 (10:49→21:25)
[2016-10-28] MEDS: VANCOMYCIN 1,250 MG in DEXTROSE 5%-WATER - 250 ML IVPB SCH (10:49)
--- NOTE | 2016-10-28 12:28 | PN ---
Progress Note, Physician History of Present Illness: dong well no new issues breathing better - Current Medication List Current Medications: Active Medications Acetaminophen (Tylenol Oral Solution -) 650 mg GT Q6H PRN PRN Reason: FEVER OR PAIN Last Admin: 10/24/16 10:45 Dose: 650 mg Albuterol/Ipratropium (Duoneb -) 1 amp NEB Q4H PRN PRN Reason: SHORTNESS OF BREATH Arformoterol Tartrate (Brovana (Restricted To Pulmonology/Resp) -) 1 amp NEB BID [facility] Last Admin: 10/28/16 10:35 Dose: 1 amp Bisacodyl (Dulcolax Suppository -) 10 mg RC PRN PRN Diazepam (Valium -) 5 mg GT TID [facility] Last Admin: 10/28/16 05:09 Dose: 5 mg Docusate Sodium (Colace Liquid -) 300 mg GT HS [facility] Last Admin: 10/27/16 21:02 Dose: Not Given Heparin Sodium (Porcine) (Heparin -) 5,000 unit SQ BID [facility] Last Admin: 10/28/16 10:49 Dose: Not Given Piperacillin Sod/Tazobactam Sod (Zosyn 3.375gm Ivpb (Pre-Docked)) 50 mls @ 100 mls/hr IVPB Q8H-IV ESVIN PRN Reason: Protocol Last Admin: 10/28/16 09:33 Dose: 100 mls/hr Vancomycin HCl 1,250 mg/ (Dextrose) 250 mls @ 166.667 mls/hr IVPB DAILY ESVIN PRN Reason: Protocol Last Admin: 10/28/16 10:49 Dose: 166.667 mls/hr Ondansetron HCl (Zofran Injection) 4 mg IVPB Q6H PRN PRN Reason: NAUSEA Last Admin: 10/18/16 11:29 Dose: 4 mg Pantoprazole Sodium (Protonix Packets For Oral Suspension -) 40 mg GT DAILY [facility] Last Admin: 10/28/16 09:33 Dose: 40 mg Polyethylene Glycol (Miralax (For Daily Use) -) 17 gm GT DAILY PRN PRN Reason: CONSTIPATION Ranitidine HCl (Zantac Oral Solution -) 150 mg GT BID [facility] Last Admin: 10/28/16 09:33 Dose: 150 mg Zolpidem Tartrate (Ambien -) 5 mg GT HS PRN PRN Reason: INSOMNIA Last Admin: 10/27/16 21:01 Dose: 5 mg - Objective Vital Signs: Vital Signs Temperature 97.8 F 10/28/16 09:00 Pulse Rate 69 10/28/16 09:00 Respiratory Rate 19 10/28/16 09:00 Blood Pressure 103/72 10/28/16 09:00 O2 Sat by Pulse Oximetry (%) 96 10/27/16 22:00 Constitutional: Yes: No Distress, Calm Respiratory: Yes: Regular, Rhonchi Gastrointestinal: Yes: Normal Bowel Sounds, Soft, Other (peg tube in place) Musculoskeletal: Yes: Other Extremities: Yes: Other Neurological: Yes: Alert, Oriented Psychiatric: Yes: Alert Labs: CBC, BMP 10/27/16 06:00 10/27/16 06:00 INR, PTT INR 1.24 (0.82-1.09) H 10/18/16 00:57 Assessment/Plan Problems (1) Cough with hemoptysis Code(s): R04.2 - HEMOPTYSIS (2) Sepsis Code(s): A41.9 - SEPSIS, UNSPECIFIED ORGANISM (3) Pneumonia Code(s): J18.9 - PNEUMONIA, UNSPECIFIED ORGANISM Qualifiers: (4) Dysphagia Code(s): R13.10 - DYSPHAGIA, UNSPECIFIED (5) COPD (chronic obstructive pulmonary disease) Code(s): J44.9 - CHRONIC OBSTRUCTIVE PULMONARY DISEASE, UNSPECIFIED Qualifiers : COPD type: COPD with acute exacerbation Qualified Code(s): J44.1 - Chronic obstructive pulmonary disease with (acute) exacerbation (6) Dystonia Code(s): G24.9 - DYSTONIA, UNSPECIFIED (7) GERD (gastroesophageal reflux disease) Code(s): K21.9 - GASTRO-ESOPHAGEAL REFLUX DISEASE WITHOUT ESOPHAGITIS (8) HTN (hypertension) Code(s): I10 - ESSENTIAL (PRIMARY) HYPERTENSION Qualifiers: uti mrsa,multibacterial plan continue current abx vanco trough noted will stop vanco on saturday and zosyn by saturday
--- NOTE | 2016-10-28 14:35 | PN ---
Progress Note (short form) - Note Progress Note: PULMONARY States cough is still productive of green sputum. No fevers or chills. Does not feel brovana is as effective as the duonebs. Last Vital Signs Temp Pulse Resp BP Pulse Ox 99.1 F 68 20 124/74 96 10/28/16 13:37 10/28/16 13:37 10/28/16 13:37 10/28/16 13:37 10/28/16 10:00 Gen: NAD at rest Heart: RRR Lung: scattered rhonchi Abd: soft, nontender, +suprapubic catheter Ext: no edema CBC, BMP 10/27/16 06:00 10/27/16 06:00 Active Medications Acetaminophen (Tylenol Oral Solution -) 650 mg GT Q6H PRN PRN Reason: FEVER OR PAIN Last Admin: 10/24/16 10:45 Dose: 650 mg Albuterol/Ipratropium (Duoneb -) 1 amp NEB Q4H PRN PRN Reason: SHORTNESS OF BREATH Arformoterol Tartrate (Brovana (Restricted To Pulmonology/Resp) -) 1 amp NEB BID [facility] Last Admin: 10/28/16 10:35 Dose: 1 amp Bisacodyl (Dulcolax Suppository -) 10 mg RC PRN PRN Diazepam (Valium -) 5 mg GT TID [facility] Last Admin: 10/28/16 14:11 Dose: 5 mg Docusate Sodium (Colace Liquid -) 300 mg GT HS [facility] Last Admin: 10/27/16 21:02 Dose: Not Given Heparin Sodium (Porcine) (Heparin -) 5,000 unit SQ BID [facility] Last Admin: 10/28/16 10:49 Dose: Not Given Piperacillin Sod/Tazobactam Sod (Zosyn 3.375gm Ivpb (Pre-Docked)) 50 mls @ 100 mls/hr IVPB Q8H-IV ESVIN PRN Reason: Protocol Last Admin: 10/28/16 09:33 Dose: 100 mls/hr Vancomycin HCl 1,250 mg/ (Dextrose) 250 mls @ 166.667 mls/hr IVPB DAILY ESVIN PRN Reason: Protocol Last Admin: 10/28/16 10:49 Dose: 166.667 mls/hr Ondansetron HCl (Zofran Injection) 4 mg IVPB Q6H PRN PRN Reason: NAUSEA Last Admin: 10/18/16 11:29 Dose: 4 mg Pantoprazole Sodium (Protonix Packets For Oral Suspension -) 40 mg GT DAILY [facility] Last Admin: 10/28/16 09:33 Dose: 40 mg Polyethylene Glycol (Miralax (For Daily Use) -) 17 gm GT DAILY PRN PRN Reason: CONSTIPATION Ranitidine HCl (Zantac Oral Solution -) 150 mg GT BID [facility] Last Admin: 10/28/16 09:33 Dose: 150 mg Zolpidem Tartrate (Ambien -) 5 mg GT HS PRN PRN Reason: INSOMNIA Last Admin: 10/27/16 21:01 Dose: 5 mg A/P Likely Aspiration Pneumonia from enteral feeds Sepsis resolved Hemoptysis resolved Dystonia Dysphagia HTN - will change brovana back to duonebs - complete antibiotics - O2 as needed - enteral feeds - aspiration precautions - DVT prophylaxis Problem List - Problems (1) Pneumonia Code(s): J18.9 - PNEUMONIA, UNSPECIFIED ORGANISM Qualifiers: (2) Aspiration of formula Code(s): P24.30 - ASPIRAT OF MILK AND REGURGITATED FOOD W/O RESP SYMP (3) Hemoptysis Code(s): R04.2 - HEMOPTYSIS (4) Dysphagia Code(s): R13.10 - DYSPHAGIA, UNSPECIFIED (5) Dystonia Code(s): G24.9 - DYSTONIA, UNSPECIFIED (6) HTN (hypertension) Code(s): I10 - ESSENTIAL (PRIMARY) HYPERTENSION Qualifiers: (7) Suprapubic catheter Code(s): Z93.59 - OTHER CYSTOSTOMY STATUS (8) Urinary tract infection Code(s): N39.0 - URINARY TRACT INFECTION, SITE NOT SPECIFIED Qualifiers: Urinary tract infection type: acute cystitis Hematuria presence: without hematuria Qualified Code(s): N30.00 - Acute cystitis without hematuria
[2016-10-28] MEDS: ALBUTEROL SO4 2.5/IPRATROPIUM 0.5 INH SOL 3 ML VIAL.NEB. NEB SCH ×2 (18:24→23:00)
[2016-10-28] MEDS ORDERED: PT OWN MED DRAWER 7, Y5N ONE (21:09)
[2016-10-28] MEDS: DOCUSATE NA 100 MG/10 ML UNIT-DOSE CUPS GT SCH (21:13)
[2016-10-28] MEDS: ZOLPIDEM TARTRATE 5 MG TABLET GT PRN (22:11)
[2016-10-29] MEDS: PIPERACILLIN/TAZOB 3.375 GM 50 ML IVPB SCH ×3 (01:32→17:54)
[2016-10-29] MEDS: diazePAM 5 MG TABLET GT SCH ×3 (05:51→21:53)
[2016-10-29] MEDS: HEPARIN NA (PORCINE) 5,000 UNITS/ML 1ML VIAL SQ SCH ×2 (10:00→21:53)
[2016-10-29] MEDS: VANCOMYCIN 1,250 MG in DEXTROSE 5%-WATER - 250 ML IVPB SCH (10:01)
[2016-10-29] MEDS: PANTOPRAZOLE SOD 40 MG SUSPENSION PACKET GT SCH (10:01)
[2016-10-29] MEDS: RANITIDINE HCL 150 MG/10 ML UNIT-DOSE CUP GT SCH ×2 (10:01→21:53)
[2016-10-29] MEDS: ALBUTEROL SO4 2.5/IPRATROPIUM 0.5 INH SOL 3 ML VIAL.NEB. NEB SCH ×4 (10:20→22:15)
--- NOTE | 2016-10-29 13:44 | PN ---
Progress Note, Physician History of Present Illness: pulmonary alert,no distress,less congestion,afebrile - Current Medication List Current Medications: Active Medications Acetaminophen (Tylenol Oral Solution -) 650 mg GT Q6H PRN PRN Reason: FEVER OR PAIN Last Admin: 10/24/16 10:45 Dose: 650 mg Albuterol/Ipratropium (Duoneb -) 1 amp NEB QID [facility] Last Admin: 10/28/16 23:00 Dose: Not Given Bisacodyl (Dulcolax Suppository -) 10 mg RC PRN PRN Diazepam (Valium -) 5 mg GT TID [facility] Last Admin: 10/29/16 13:42 Dose: 5 mg Docusate Sodium (Colace Liquid -) 300 mg GT HS [facility] Last Admin: 10/28/16 21:13 Dose: 300 mg Heparin Sodium (Porcine) (Heparin -) 5,000 unit SQ BID [facility] Last Admin: 10/29/16 10:00 Dose: Not Given Piperacillin Sod/Tazobactam Sod (Zosyn 3.375gm Ivpb (Pre-Docked)) 50 mls @ 100 mls/hr IVPB Q8H-IV ESVIN PRN Reason: Protocol Last Admin: 10/29/16 10:01 Dose: 100 mls/hr Vancomycin HCl 1,250 mg/ (Dextrose) 250 mls @ 166.667 mls/hr IVPB DAILY ESVIN PRN Reason: Protocol Last Admin: 10/29/16 10:01 Dose: 166.667 mls/hr Ondansetron HCl (Zofran Injection) 4 mg IVPB Q6H PRN PRN Reason: NAUSEA Last Admin: 10/18/16 11:29 Dose: 4 mg Pantoprazole Sodium (Protonix Packets For Oral Suspension -) 40 mg GT DAILY [facility] Last Admin: 10/29/16 10:01 Dose: 40 mg Polyethylene Glycol (Miralax (For Daily Use) -) 17 gm GT DAILY PRN PRN Reason: CONSTIPATION Ranitidine HCl (Zantac Oral Solution -) 150 mg GT BID [facility] Last Admin: 10/29/16 10:01 Dose: 150 mg Zolpidem Tartrate (Ambien -) 5 mg GT HS PRN PRN Reason: INSOMNIA Last Admin: 10/28/16 22:11 Dose: 5 mg - Objective Vital Signs: Vital Signs Temperature 98.4 F 06/12/17 10:00 Pulse Rate 72 10/29/16 10:00 Respiratory Rate 20 10/29/16 10:00 Blood Pressure 95/56 10/29/16 10:00 O2 Sat by Pulse Oximetry (%) 95 10/29/16 09:00 Constitutional: Yes: Calm, Cachectic Eyes: Yes: WNL HENT: Yes: WNL Neck: Yes: WNL Cardiovascular: Yes: Regular Rate and Rhythm, S1, S2 Respiratory: Yes: Wheezes (few wheezes) Gastrointestinal: Yes: Normal Bowel Sounds, Soft, Other (+gt) Extremities: Yes: WNL Edema: No Labs: CBC, BMP Assessment/Plan Problem List - Problems (1) Pneumonia Code(s): J18.9 - PNEUMONIA, UNSPECIFIED ORGANISM Qualifiers: (2) Aspiration of formula Code(s): P24.30 - ASPIRAT OF MILK AND REGURGITATED FOOD W/O RESP SYMP (3) Hemoptysis Code(s): R04.2 - HEMOPTYSIS (4) Dysphagia Code(s): R13.10 - DYSPHAGIA, UNSPECIFIED (5) Dystonia Code(s): G24.9 - DYSTONIA, UNSPECIFIED (6) HTN (hypertension) Code(s): I10 - ESSENTIAL (PRIMARY) HYPERTENSION Qualifiers: (7) Suprapubic catheter Code(s): Z93.59 - OTHER CYSTOSTOMY STATUS (8) Urinary tract infection Code(s): N39.0 - URINARY TRACT INFECTION, SITE NOT SPECIFIED Qualifiers: Urinary tract infection type: acute cystitis Hematuria presence: without hematuria Qualified Code(s): N30.00 - Acute cystitis without hematuria Assessment/Plan Likely Aspiration Pneumonia from enteral feeds Sepsis resolved Hemoptysis resolved Dystonia Dysphagia HTN - IV antibiotics as per ID - O2 as needed - aspiration precautions - DVT prophylaxis - continuos gt feeds - inhaled bronchodilators DR MURDOCK
--- NOTE | 2016-10-29 15:07 | PN ---
Progress Note, Physician History of Present Illness: patient stable doing well - Current Medication List Current Medications: Active Medications Acetaminophen (Tylenol Oral Solution -) 650 mg GT Q6H PRN PRN Reason: FEVER OR PAIN Last Admin: 10/24/16 10:45 Dose: 650 mg Albuterol/Ipratropium (Duoneb -) 1 amp NEB QID [facility] Last Admin: 10/29/16 14:10 Dose: Not Given Bisacodyl (Dulcolax Suppository -) 10 mg RC PRN PRN Diazepam (Valium -) 5 mg GT TID [facility] Last Admin: 10/29/16 13:42 Dose: 5 mg Docusate Sodium (Colace Liquid -) 300 mg GT HS [facility] Last Admin: 10/28/16 21:13 Dose: 300 mg Heparin Sodium (Porcine) (Heparin -) 5,000 unit SQ BID [facility] Last Admin: 10/29/16 10:00 Dose: Not Given Piperacillin Sod/Tazobactam Sod (Zosyn 3.375gm Ivpb (Pre-Docked)) 50 mls @ 100 mls/hr IVPB Q8H-IV ESVIN PRN Reason: Protocol Last Admin: 10/29/16 10:01 Dose: 100 mls/hr Ondansetron HCl (Zofran Injection) 4 mg IVPB Q6H PRN PRN Reason: NAUSEA Last Admin: 10/18/16 11:29 Dose: 4 mg Pantoprazole Sodium (Protonix Packets For Oral Suspension -) 40 mg GT DAILY [facility] Last Admin: 10/29/16 10:01 Dose: 40 mg Polyethylene Glycol (Miralax (For Daily Use) -) 17 gm GT DAILY PRN PRN Reason: CONSTIPATION Ranitidine HCl (Zantac Oral Solution -) 150 mg GT BID [facility] Last Admin: 10/29/16 10:01 Dose: 150 mg Zolpidem Tartrate (Ambien -) 5 mg GT HS PRN PRN Reason: INSOMNIA Last Admin: 10/28/16 22:11 Dose: 5 mg - Objective Vital Signs: Vital Signs Temperature 98.4 F 10/29/16 14:00 Pulse Rate 75 10/29/16 14:00 Respiratory Rate 20 10/29/16 14:00 Blood Pressure 115/67 10/29/16 14:00 O2 Sat by Pulse Oximetry (%) 97 10/29/16 10:20 Constitutional: Yes: No Distress, Calm Cardiovascular: Yes: Regular Rate and Rhythm Respiratory: Yes: Regular, Rhonchi Gastrointestinal: Yes: Soft, Other (peg in place) Musculoskeletal: Yes: WNL Extremities: Yes: WNL Neurological: Yes: Alert, Oriented Psychiatric: Yes: Alert, Oriented Labs: CBC, BMP 10/27/16 06:00 10/27/16 06:00 INR, PTT INR 1.24 (0.82-1.09) H 10/18/16 00:57 Assessment/Plan Problems (1) Cough with hemoptysis Code(s): R04.2 - HEMOPTYSIS (2) Sepsis Code(s): A41.9 - SEPSIS, UNSPECIFIED ORGANISM (3) Pneumonia Code(s): J18.9 - PNEUMONIA, UNSPECIFIED ORGANISM Qualifiers: (4) Dysphagia Code(s): R13.10 - DYSPHAGIA, UNSPECIFIED (5) COPD (chronic obstructive pulmonary disease) Code(s): J44.9 - CHRONIC OBSTRUCTIVE PULMONARY DISEASE, UNSPECIFIED Qualifiers : COPD type: COPD with acute exacerbation Qualified Code(s): J44.1 - Chronic obstructive pulmonary disease with (acute) exacerbation (6) Dystonia Code(s): G24.9 - DYSTONIA, UNSPECIFIED (7) GERD (gastroesophageal reflux disease) Code(s): K21.9 - GASTRO-ESOPHAGEAL REFLUX DISEASE WITHOUT ESOPHAGITIS (8) HTN (hypertension) Code(s): I10 - ESSENTIAL (PRIMARY) HYPERTENSION Qualifiers: uti mrsa,multibacterial plan continue current mgmt stopped vanco can stop zosyn tomorrow rest as per primary
--- NOTE | 2016-10-29 15:13 | PN ---
Progress Note, Physician Chief Complaint: Mr Nash says he had some wheezing yesterday, but resolved. Still with cough , d/w pulmonary and says he is at baseline. No cp, sob, n/v. - Current Medication List Current Medications: Active Medications Acetaminophen (Tylenol Oral Solution -) 650 mg GT Q6H PRN PRN Reason: FEVER OR PAIN Last Admin: 10/24/16 10:45 Dose: 650 mg Albuterol/Ipratropium (Duoneb -) 1 amp NEB QID [facility] Last Admin: 10/29/16 14:10 Dose: Not Given Bisacodyl (Dulcolax Suppository -) 10 mg RC PRN PRN Diazepam (Valium -) 5 mg GT TID [facility] Last Admin: 10/29/16 13:42 Dose: 5 mg Docusate Sodium (Colace Liquid -) 300 mg GT HS [facility] Last Admin: 10/28/16 21:13 Dose: 300 mg Heparin Sodium (Porcine) (Heparin -) 5,000 unit SQ BID [facility] Last Admin: 10/29/16 10:00 Dose: Not Given Piperacillin Sod/Tazobactam Sod (Zosyn 3.375gm Ivpb (Pre-Docked)) 50 mls @ 100 mls/hr IVPB Q8H-IV ESVIN PRN Reason: Protocol Last Admin: 10/29/16 10:01 Dose: 100 mls/hr Ondansetron HCl (Zofran Injection) 4 mg IVPB Q6H PRN PRN Reason: NAUSEA Last Admin: 10/18/16 11:29 Dose: 4 mg Pantoprazole Sodium (Protonix Packets For Oral Suspension -) 40 mg GT DAILY [facility] Last Admin: 10/29/16 10:01 Dose: 40 mg Polyethylene Glycol (Miralax (For Daily Use) -) 17 gm GT DAILY PRN PRN Reason: CONSTIPATION Ranitidine HCl (Zantac Oral Solution -) 150 mg GT BID [facility] Last Admin: 10/29/16 10:01 Dose: 150 mg Zolpidem Tartrate (Ambien -) 5 mg GT HS PRN PRN Reason: INSOMNIA Last Admin: 10/28/16 22:11 Dose: 5 mg - Objective Vital Signs: Vital Signs Temperature 98.4 F 10/29/16 14:00 Pulse Rate 75 10/29/16 14:00 Respiratory Rate 20 10/29/16 14:00 Blood Pressure 115/67 10/29/16 14:00 O2 Sat by Pulse Oximetry (%) 97 10/29/16 10:20 Constitutional: Yes: No Distress, Calm, Thin Cardiovascular: Yes: Regular Rate and Rhythm. No: Gallop, Murmur, Rub Respiratory: Yes: Regular, On Nasal O2, Rhonchi. No: Rales, Wheezes Gastrointestinal: Yes: Normal Bowel Sounds, Soft. No: Distention, Tenderness Extremities: Yes: WNL Edema: No Labs: CBC, BMP 10/27/16 06:00 10/27/16 06:00 INR, PTT INR 1.24 (0.82-1.09) H 10/18/16 00:57 Problem List - Problems (1) Cough with hemoptysis Code(s): R04.2 - HEMOPTYSIS (2) Sepsis Code(s): A41.9 - SEPSIS, UNSPECIFIED ORGANISM (3) Pneumonia Code(s): J18.9 - PNEUMONIA, UNSPECIFIED ORGANISM Qualifiers: (4) Dysphagia Code(s): R13.10 - DYSPHAGIA, UNSPECIFIED (5) COPD (chronic obstructive pulmonary disease) Code(s): J44.9 - CHRONIC OBSTRUCTIVE PULMONARY DISEASE, UNSPECIFIED Qualifiers : COPD type: COPD with acute exacerbation Qualified Code(s): J44.1 - Chronic obstructive pulmonary disease with (acute) exacerbation (6) Dystonia Code(s): G24.9 - DYSTONIA, UNSPECIFIED (7) GERD (gastroesophageal reflux disease) Code(s): K21.9 - GASTRO-ESOPHAGEAL REFLUX DISEASE WITHOUT ESOPHAGITIS (8) HTN (hypertension) Code(s): I10 - ESSENTIAL (PRIMARY) HYPERTENSION Qualifiers: Assessment/Plan (1) Cough with hemoptysis Assessment/Plan: -hemoptysis resolved but still with productive cough -continue antibiotics -appears that patient is not aspirating at current rate -case d/w pulmonary, productive cough is chronic Code(s): R04.2 - HEMOPTYSIS (2) Sepsis Assessment/Plan: -continue antibiotics per ID -resolved Code(s): A41.9 - SEPSIS, UNSPECIFIED ORGANISM (3) Pneumonia Assessment/Plan: -ID following, on zosyn Code(s): J18.9 - PNEUMONIA, UNSPECIFIED ORGANISM Qualifiers: (4) Dysphagia Assessment/Plan: -tolerating continuous tube feeding -increased to 50mL Code(s): R13.10 - DYSPHAGIA, UNSPECIFIED (5) COPD (chronic obstructive pulmonary disease) Assessment/Plan: -suspect at baseline -pulmonary following -continue current management Code(s): J44.9 - CHRONIC OBSTRUCTIVE PULMONARY DISEASE, UNSPECIFIED Qualifiers : COPD type: COPD with acute exacerbation Qualified Code(s): J44.1 - Chronic obstructive pulmonary disease with (acute) exacerbation (6) Dystonia Assessment/Plan: -continue home regimen Code(s): G24.9 - DYSTONIA, UNSPECIFIED (7) GERD (gastroesophageal reflux disease) Assessment/Plan: -continue protonix Code(s): K21.9 - GASTRO-ESOPHAGEAL REFLUX DISEASE WITHOUT ESOPHAGITIS (8) HTN (hypertension) Assessment/Plan: -well controlled Code(s): I10 - ESSENTIAL (PRIMARY) HYPERTENSION Qualifiers: (9) Depression -appreciate psychiatry evaluation (10) UTI -polymicrobial -ID following -on zosyn and vancomycin Dispo -discharge when finished course of antibiotics per ID
--- NOTE | 2016-10-29 15:16 | PN ---
Progress Note (short form) - Note Progress Note: This pt. is well known to me. He was seen last saturday and had the suprapubic tube changed. The tube is draining well. Pt. feels comfortable. Thank you
[2016-10-29] MEDS ORDERED: PT OWN MED DRAWER 7, Y5N ONE (21:51)
[2016-10-29] MEDS: DOCUSATE NA 100 MG/10 ML UNIT-DOSE CUPS GT SCH (21:53)
[2016-10-30] MEDS: PIPERACILLIN/TAZOB 3.375 GM 50 ML IVPB SCH ×3 (02:19→17:58)
[2016-10-30] MEDS ORDERED: PT OWN MED DRAWER 7, Y5N ONE ×2 (05:38→21:12)
[2016-10-30] MEDS: diazePAM 5 MG TABLET GT SCH ×3 (05:39→22:00)
[2016-10-30 06:49] LABS: MCH 33.9 pg (25.7-33.7); MCHC 34.2 g/dl (32.0-35.9); MEAN CELL VOLUME 99.1 fl (80-96); MEAN PLT VOLUME 7.3 fl (7.5-11.1); PLATELET COUNT 342 K/MM3 (134-434); WHITE BLOOD COUNT 7.7 K/mm3 (4.0-10.0)
[2016-10-30 07:22] LABS: CALCIUM 8.8 mg/dL (8.5-10.1); COCKROFT - GAULT 84.83; CREATININE 0.6 mg/dL (0.7-1.3); MAGNESIUM 2.5 mg/dL (1.8-2.4); PHOSPHOROUS 3.9 mg/dL (2.5-4.9)
[2016-10-30 09:27] LABS: PLATELET ESTIMATE ADEQUATE (NORMAL)
[2016-10-30] MEDS: RANITIDINE HCL 150 MG/10 ML UNIT-DOSE CUP GT SCH ×2 (10:08→22:00)
[2016-10-30] MEDS: PANTOPRAZOLE SOD 40 MG SUSPENSION PACKET GT SCH (10:08)
[2016-10-30] MEDS: HEPARIN NA (PORCINE) 5,000 UNITS/ML 1ML VIAL SQ SCH ×2 (10:09→22:00)
[2016-10-30] MEDS: ALBUTEROL SO4 2.5/IPRATROPIUM 0.5 INH SOL 3 ML VIAL.NEB. NEB SCH ×2 (11:26→17:26)
--- NOTE | 2016-10-30 11:33 | PN ---
Progress Note, Physician History of Present Illness: pulmonary alert,-resp distress,afebrile. pt very depressed. - Current Medication List Current Medications: Active Medications Acetaminophen (Tylenol Oral Solution -) 650 mg GT Q6H PRN PRN Reason: FEVER OR PAIN Last Admin: 10/24/16 10:45 Dose: 650 mg Albuterol/Ipratropium (Duoneb -) 1 amp NEB QIDR [facility] Bisacodyl (Dulcolax Suppository -) 10 mg RC PRN PRN Last Admin: 10/30/16 10:09 Dose: 10 mg Diazepam (Valium -) 5 mg GT TID [facility] Last Admin: 10/30/16 05:39 Dose: 5 mg Docusate Sodium (Colace Liquid -) 300 mg GT HS [facility] Last Admin: 10/29/16 21:53 Dose: 300 mg Heparin Sodium (Porcine) (Heparin -) 5,000 unit SQ BID [facility] Last Admin: 10/30/16 10:09 Dose: Not Given Piperacillin Sod/Tazobactam Sod (Zosyn 3.375gm Ivpb (Pre-Docked)) 50 mls @ 100 mls/hr IVPB Q8H-IV ESVIN PRN Reason: Protocol Last Admin: 10/30/16 10:08 Dose: 100 mls/hr Ondansetron HCl (Zofran Injection) 4 mg IVPB Q6H PRN PRN Reason: NAUSEA Last Admin: 10/18/16 11:29 Dose: 4 mg Pantoprazole Sodium (Protonix Packets For Oral Suspension -) 40 mg GT DAILY [facility] Last Admin: 10/30/16 10:08 Dose: 40 mg Polyethylene Glycol (Miralax (For Daily Use) -) 17 gm GT DAILY PRN PRN Reason: CONSTIPATION Ranitidine HCl (Zantac Oral Solution -) 150 mg GT BID [facility] Last Admin: 10/30/16 10:08 Dose: 150 mg Zolpidem Tartrate (Ambien -) 5 mg GT HS PRN PRN Reason: INSOMNIA Last Admin: 10/28/16 22:11 Dose: 5 mg - Objective Vital Signs: Vital Signs Temperature 97.8 F 10/30/16 10:00 Pulse Rate 72 10/30/16 10:00 Respiratory Rate 19 10/30/16 10:00 Blood Pressure 108/71 10/30/16 10:00 O2 Sat by Pulse Oximetry (%) 97 10/29/16 10:20 Constitutional: Yes: Calm, Cachectic Eyes: Yes: WNL, Other HENT: Yes: WNL Neck: Yes: WNL Cardiovascular: Yes: Regular Rate and Rhythm, S1, S2 Respiratory: Yes: CTA Bilaterally Gastrointestinal: Yes: Normal Bowel Sounds, Soft Extremities: Yes: WNL Edema: No Labs: CBC, BMP 10/30/16 05:35 10/30/16 05:35 INR, PTT INR 1.24 (0.82-1.09) H 10/18/16 00:57 Assessment/Plan Problem List - Problems (1) Pneumonia Code(s): J18.9 - PNEUMONIA, UNSPECIFIED ORGANISM Qualifiers: (2) Aspiration of formula Code(s): P24.30 - ASPIRAT OF MILK AND REGURGITATED FOOD W/O RESP SYMP (3) Hemoptysis Code(s): R04.2 - HEMOPTYSIS (4) Dysphagia Code(s): R13.10 - DYSPHAGIA, UNSPECIFIED (5) Dystonia Code(s): G24.9 - DYSTONIA, UNSPECIFIED (6) HTN (hypertension) Code(s): I10 - ESSENTIAL (PRIMARY) HYPERTENSION Qualifiers: (7) Suprapubic catheter Code(s): Z93.59 - OTHER CYSTOSTOMY STATUS (8) Urinary tract infection Code(s): N39.0 - URINARY TRACT INFECTION, SITE NOT SPECIFIED Qualifiers: Urinary tract infection type: acute cystitis Hematuria presence: without hematuria Qualified Code(s): N30.00 - Acute cystitis without hematuria Assessment/Plan Likely Aspiration Pneumonia from enteral feeds clinically improved Sepsis resolved Hemoptysis resolved Dystonia Dysphagia HTN - IV antibiotics as per ID - O2 as needed - aspiration precautions - DVT prophylaxis - continuos gt feeds - inhaled bronchodilators DR MURDOCK
[2016-10-30] MEDS ORDERED: diazePAM 5 MG TABLET GT ONE (13:11)
--- NOTE | 2016-10-30 13:36 | PN ---
Progress Note, Physician Chief Complaint: Mr Nash says he is upset and anxious today. No cp, sob, n/v. Persistent cough is unchanged. - Current Medication List Current Medications: Active Medications Acetaminophen (Tylenol Oral Solution -) 650 mg GT Q6H PRN PRN Reason: FEVER OR PAIN Last Admin: 10/24/16 10:45 Dose: 650 mg Albuterol/Ipratropium (Duoneb -) 1 amp NEB QIDR [facility] Last Admin: 10/30/16 11:26 Dose: 1 amp Bisacodyl (Dulcolax Suppository -) 10 mg RC PRN PRN Last Admin: 10/30/16 10:09 Dose: 10 mg Diazepam (Valium -) 5 mg GT TID [facility] Last Admin: 10/30/16 05:39 Dose: 5 mg Docusate Sodium (Colace Liquid -) 300 mg GT HS [facility] Last Admin: 10/29/16 21:53 Dose: 300 mg Heparin Sodium (Porcine) (Heparin -) 5,000 unit SQ BID [facility] Last Admin: 10/30/16 10:09 Dose: Not Given Piperacillin Sod/Tazobactam Sod (Zosyn 3.375gm Ivpb (Pre-Docked)) 50 mls @ 100 mls/hr IVPB Q8H-IV ESVIN PRN Reason: Protocol Last Admin: 10/30/16 10:08 Dose: 100 mls/hr Ondansetron HCl (Zofran Injection) 4 mg IVPB Q6H PRN PRN Reason: NAUSEA Last Admin: 10/18/16 11:29 Dose: 4 mg Pantoprazole Sodium (Protonix Packets For Oral Suspension -) 40 mg GT DAILY [facility] Last Admin: 10/30/16 10:08 Dose: 40 mg Polyethylene Glycol (Miralax (For Daily Use) -) 17 gm GT DAILY PRN PRN Reason: CONSTIPATION Ranitidine HCl (Zantac Oral Solution -) 150 mg GT BID [facility] Last Admin: 10/30/16 10:08 Dose: 150 mg Zolpidem Tartrate (Ambien -) 5 mg GT HS PRN PRN Reason: INSOMNIA Last Admin: 10/28/16 22:11 Dose: 5 mg - Objective Vital Signs: Vital Signs Temperature 97.8 F 10/30/16 10:00 Pulse Rate 72 10/30/16 11:26 Respiratory Rate 19 10/30/16 10:00 Blood Pressure 108/71 10/30/16 10:00 O2 Sat by Pulse Oximetry (%) 97 10/30/16 11:26 Constitutional: Yes: No Distress, Calm, Thin Cardiovascular: Yes: Regular Rate and Rhythm. No: Gallop, Murmur, Rub Respiratory: Yes: Regular, On Nasal O2, Rhonchi. No: Rales, Wheezes Gastrointestinal: Yes: Normal Bowel Sounds, Soft. No: Distention, Tenderness Musculoskeletal: Yes: WNL Edema: No Labs: CBC, BMP 10/30/16 05:35 10/30/16 05:35 INR, PTT INR 1.24 (0.82-1.09) H 10/18/16 00:57 Problem List - Problems (1) Cough with hemoptysis Code(s): R04.2 - HEMOPTYSIS (2) Sepsis Code(s): A41.9 - SEPSIS, UNSPECIFIED ORGANISM (3) Pneumonia Code(s): J18.9 - PNEUMONIA, UNSPECIFIED ORGANISM Qualifiers: (4) Dysphagia Code(s): R13.10 - DYSPHAGIA, UNSPECIFIED (5) COPD (chronic obstructive pulmonary disease) Code(s): J44.9 - CHRONIC OBSTRUCTIVE PULMONARY DISEASE, UNSPECIFIED Qualifiers : COPD type: COPD with acute exacerbation Qualified Code(s): J44.1 - Chronic obstructive pulmonary disease with (acute) exacerbation (6) Dystonia Code(s): G24.9 - DYSTONIA, UNSPECIFIED (7) GERD (gastroesophageal reflux disease) Code(s): K21.9 - GASTRO-ESOPHAGEAL REFLUX DISEASE WITHOUT ESOPHAGITIS (8) HTN (hypertension) Code(s): I10 - ESSENTIAL (PRIMARY) HYPERTENSION Qualifiers: Assessment/Plan (1) Cough with hemoptysis Assessment/Plan: -hemoptysis resolved but still with productive cough -continue antibiotics, last day today -appears that patient is not aspirating at current rate -case d/w pulmonary, productive cough is chronic Code(s): R04.2 - HEMOPTYSIS (2) Sepsis Assessment/Plan: -continue antibiotics per ID -resolved Code(s): A41.9 - SEPSIS, UNSPECIFIED ORGANISM (3) Pneumonia Assessment/Plan: -ID following, on zosyn -can stop or transition to oral tomorrow Code(s): J18.9 - PNEUMONIA, UNSPECIFIED ORGANISM Qualifiers: (4) Dysphagia Assessment/Plan: -tolerating continuous tube feeding -increased to 50mL Code(s): R13.10 - DYSPHAGIA, UNSPECIFIED (5) COPD (chronic obstructive pulmonary disease) Assessment/Plan: -suspect at baseline -pulmonary following -continue current management Code(s): J44.9 - CHRONIC OBSTRUCTIVE PULMONARY DISEASE, UNSPECIFIED Qualifiers : COPD type: COPD with acute exacerbation Qualified Code(s): J44.1 - Chronic obstructive pulmonary disease with (acute) exacerbation (6) Dystonia Assessment/Plan: -continue home regimen Code(s): G24.9 - DYSTONIA, UNSPECIFIED (7) GERD (gastroesophageal reflux disease) Assessment/Plan: -continue protonix Code(s): K21.9 - GASTRO-ESOPHAGEAL REFLUX DISEASE WITHOUT ESOPHAGITIS (8) HTN (hypertension) Assessment/Plan: -well controlled Code(s): I10 - ESSENTIAL (PRIMARY) HYPERTENSION Qualifiers: (9) Depression -will give extra dose of valium today (10) UTI -polymicrobial -ID following -on zosyn Dispo -plan for discharge tomorrow
--- NOTE | 2016-10-30 14:10 | PN ---
Progress Note, Physician History of Present Illness: patient stable doing well no sputum production - Current Medication List Current Medications: Active Medications Acetaminophen (Tylenol Oral Solution -) 650 mg GT Q6H PRN PRN Reason: FEVER OR PAIN Last Admin: 10/24/16 10:45 Dose: 650 mg Albuterol/Ipratropium (Duoneb -) 1 amp NEB QIDR [facility] Last Admin: 10/30/16 11:26 Dose: 1 amp Bisacodyl (Dulcolax Suppository -) 10 mg RC PRN PRN Last Admin: 10/30/16 10:09 Dose: 10 mg Diazepam (Valium -) 5 mg GT TID [facility] Last Admin: 10/30/16 13:59 Dose: Not Given Docusate Sodium (Colace Liquid -) 300 mg GT HS [facility] Last Admin: 10/29/16 21:53 Dose: 300 mg Heparin Sodium (Porcine) (Heparin -) 5,000 unit SQ BID [facility] Last Admin: 10/30/16 10:09 Dose: Not Given Piperacillin Sod/Tazobactam Sod (Zosyn 3.375gm Ivpb (Pre-Docked)) 50 mls @ 100 mls/hr IVPB Q8H-IV ESVIN PRN Reason: Protocol Last Admin: 10/30/16 10:08 Dose: 100 mls/hr Ondansetron HCl (Zofran Injection) 4 mg IVPB Q6H PRN PRN Reason: NAUSEA Last Admin: 10/18/16 11:29 Dose: 4 mg Pantoprazole Sodium (Protonix Packets For Oral Suspension -) 40 mg GT DAILY [facility] Last Admin: 10/30/16 10:08 Dose: 40 mg Polyethylene Glycol (Miralax (For Daily Use) -) 17 gm GT DAILY PRN PRN Reason: CONSTIPATION Ranitidine HCl (Zantac Oral Solution -) 150 mg GT BID [facility] Last Admin: 10/30/16 10:08 Dose: 150 mg Zolpidem Tartrate (Ambien -) 5 mg GT HS PRN PRN Reason: INSOMNIA Last Admin: 10/28/16 22:11 Dose: 5 mg - Objective Vital Signs: Vital Signs Temperature 97.8 F 10/30/16 10:00 Pulse Rate 72 10/30/16 11:26 Respiratory Rate 19 10/30/16 10:00 Blood Pressure 108/71 10/30/16 10:00 O2 Sat by Pulse Oximetry (%) 97 10/30/16 11:26 Constitutional: Yes: No Distress, Calm Cardiovascular: Yes: Regular Rate and Rhythm Respiratory: Yes: Regular, CTA Bilaterally Gastrointestinal: Yes: Normal Bowel Sounds, Soft, Other (peg in place) Musculoskeletal: Yes: Other Extremities: Yes: Other Neurological: Yes: Alert, Oriented Psychiatric: Yes: Alert Labs: CBC, BMP 10/30/16 05:35 10/30/16 05:35 INR, PTT INR 1.24 (0.82-1.09) H 10/18/16 00:57 Assessment/Plan Problems (1) Cough with hemoptysis Code(s): R04.2 - HEMOPTYSIS (2) Sepsis Code(s): A41.9 - SEPSIS, UNSPECIFIED ORGANISM (3) Pneumonia Code(s): J18.9 - PNEUMONIA, UNSPECIFIED ORGANISM Qualifiers: (4) Dysphagia Code(s): R13.10 - DYSPHAGIA, UNSPECIFIED (5) COPD (chronic obstructive pulmonary disease) Code(s): J44.9 - CHRONIC OBSTRUCTIVE PULMONARY DISEASE, UNSPECIFIED Qualifiers : COPD type: COPD with acute exacerbation Qualified Code(s): J44.1 - Chronic obstructive pulmonary disease with (acute) exacerbation (6) Dystonia Code(s): G24.9 - DYSTONIA, UNSPECIFIED (7) GERD (gastroesophageal reflux disease) Code(s): K21.9 - GASTRO-ESOPHAGEAL REFLUX DISEASE WITHOUT ESOPHAGITIS (8) HTN (hypertension) Code(s): I10 - ESSENTIAL (PRIMARY) HYPERTENSION Qualifiers: uti mrsa,multibacterial plan ct nutrition stopped all abx rest as per primary
[2016-10-30] MEDS: ACETAMINOPHEN 650 MG/20.3 ML ORAL SOLUTION (CUPS) GT PRN (17:59)
[2016-10-30] MEDS: DOCUSATE NA 100 MG/10 ML UNIT-DOSE CUPS GT SCH (22:00)
[2016-10-30] MEDS: ZOLPIDEM TARTRATE 5 MG TABLET GT PRN (22:00)
[2016-10-31] MEDS ORDERED: PT OWN MED DRAWER 7, Y5N ONE (00:59)
[2016-10-31] MEDS: PIPERACILLIN/TAZOB 3.375 GM 50 ML IVPB SCH ×2 (01:35→09:48)
[2016-10-31] MEDS: diazePAM 5 MG TABLET GT SCH ×2 (05:29→13:46)
[2016-10-31] MEDS: ALBUTEROL SO4 2.5/IPRATROPIUM 0.5 INH SOL 3 ML VIAL.NEB. NEB SCH ×3 (06:00→11:23)
[2016-10-31 06:45] LABS: MCH 33.9 pg (25.7-33.7); MCHC 34.3 g/dl (32.0-35.9); MEAN CELL VOLUME 98.8 fl (80-96); MEAN PLT VOLUME 7.4 fl (7.5-11.1); PLATELET COUNT 359 K/MM3 (134-434); RDW 12.9 % (11.9-15.9); WHITE BLOOD COUNT 6.8 K/mm3 (4.0-10.0)
[2016-10-31 07:06] LABS: CALCIUM 9.1 mg/dL (8.5-10.1); COCKROFT - GAULT 84.83; CREATININE 0.6 mg/dL (0.7-1.3)
[2016-10-31] MEDS: HEPARIN NA (PORCINE) 5,000 UNITS/ML 1ML VIAL SQ SCH (09:47)
[2016-10-31] MEDS: RANITIDINE HCL 150 MG/10 ML UNIT-DOSE CUP GT SCH (09:48)
[2016-10-31] MEDS: PANTOPRAZOLE SOD 40 MG SUSPENSION PACKET GT SCH (09:48)
[2016-10-31 09:59] LABS: PLATELET ESTIMATE ADEQUATE (NORMAL)
--- NOTE | 2016-10-31 11:49 | PN ---
Progress Note, Physician History of Present Illness: pulmonary alert,no distress,-congestion,tolerating GTfeeding,afebrile - Current Medication List Current Medications: Active Medications Acetaminophen (Tylenol Oral Solution -) 650 mg GT Q6H PRN PRN Reason: FEVER OR PAIN Last Admin: 10/30/16 17:59 Dose: 650 mg Albuterol/Ipratropium (Duoneb -) 1 amp NEB QIDR [facility] Last Admin: 10/31/16 11:23 Dose: 1 amp Bisacodyl (Dulcolax Suppository -) 10 mg RC PRN PRN Last Admin: 10/30/16 10:09 Dose: 10 mg Diazepam (Valium -) 5 mg GT TID [facility] Last Admin: 10/31/16 05:29 Dose: 5 mg Docusate Sodium (Colace Liquid -) 300 mg GT HS [facility] Last Admin: 10/30/16 22:00 Dose: Not Given Heparin Sodium (Porcine) (Heparin -) 5,000 unit SQ BID [facility] Last Admin: 10/31/16 09:47 Dose: Not Given Piperacillin Sod/Tazobactam Sod (Zosyn 3.375gm Ivpb (Pre-Docked)) 50 mls @ 100 mls/hr IVPB Q8H-IV ESVIN PRN Reason: Protocol Last Admin: 10/31/16 09:48 Dose: 100 mls/hr Ondansetron HCl (Zofran Injection) 4 mg IVPB Q6H PRN PRN Reason: NAUSEA Last Admin: 10/18/16 11:29 Dose: 4 mg Pantoprazole Sodium (Protonix Packets For Oral Suspension -) 40 mg GT DAILY [facility] Last Admin: 10/31/16 09:48 Dose: 40 mg Polyethylene Glycol (Miralax (For Daily Use) -) 17 gm GT DAILY PRN PRN Reason: CONSTIPATION Ranitidine HCl (Zantac Oral Solution -) 150 mg GT BID [facility] Last Admin: 10/31/16 09:48 Dose: 150 mg Zolpidem Tartrate (Ambien -) 5 mg GT HS PRN PRN Reason: INSOMNIA Last Admin: 10/30/16 22:00 Dose: 5 mg - Objective Vital Signs: Vital Signs Temperature 98.1 F 10/31/16 09:24 Pulse Rate 78 10/31/16 11:23 Respiratory Rate 20 10/31/16 09:24 Blood Pressure 91/58 10/31/16 09:24 O2 Sat by Pulse Oximetry (%) 98 10/31/16 11:23 Constitutional: Yes: Calm, Cachectic Eyes: Yes: WNL HENT: Yes: WNL Neck: Yes: WNL Cardiovascular: Yes: Regular Rate and Rhythm, S1, S2 Respiratory: Yes: Diminished Gastrointestinal: Yes: Normal Bowel Sounds, Soft, Other (+gt) Extremities: Yes: WNL Edema: No Labs: CBC, BMP 10/31/16 05:48 10/31/16 05:48 INR, PTT INR 1.24 (0.82-1.09) H 10/18/16 00:57 Assessment/Plan Problem List - Problems (1) Pneumonia Code(s): J18.9 - PNEUMONIA, UNSPECIFIED ORGANISM Qualifiers: (2) Aspiration of formula Code(s): P24.30 - ASPIRAT OF MILK AND REGURGITATED FOOD W/O RESP SYMP (3) Hemoptysis Code(s): R04.2 - HEMOPTYSIS (4) Dysphagia Code(s): R13.10 - DYSPHAGIA, UNSPECIFIED (5) Dystonia Code(s): G24.9 - DYSTONIA, UNSPECIFIED (6) HTN (hypertension) Code(s): I10 - ESSENTIAL (PRIMARY) HYPERTENSION Qualifiers: (7) Suprapubic catheter Code(s): Z93.59 - OTHER CYSTOSTOMY STATUS (8) Urinary tract infection Code(s): N39.0 - URINARY TRACT INFECTION, SITE NOT SPECIFIED Qualifiers: Urinary tract infection type: acute cystitis Hematuria presence: without hematuria Qualified Code(s): N30.00 - Acute cystitis without hematuria Assessment/Plan Likely Aspiration Pneumonia from enteral feeds clinically improved Sepsis resolved Hemoptysis resolved Dystonia Dysphagia HTN - IV antibiotics as per ID - O2 as needed - aspiration precautions - DVT prophylaxis - continuos gt feeds - inhaled bronchodilators DR MURDOCK
--- NOTE | 2016-10-31 14:13 | DS ---
Physical Examination Vital Signs: Vital Signs Temperature 98.1 F 10/31/16 09:24 Pulse Rate 78 10/31/16 11:23 Respiratory Rate 20 10/31/16 10:00 Blood Pressure 91/58 10/31/16 09:24 O2 Sat by Pulse Oximetry (%) 98 10/31/16 11:23 Constitutional: Yes: No Distress, Calm, Thin Cardiovascular: Yes: Regular Rate and Rhythm. No: Gallop, Murmur, Rub Respiratory: Yes: Regular, On Nasal O2, Rhonchi, Wheezes. No: Rales Gastrointestinal: Yes: Normal Bowel Sounds, Soft. No: Distention, Tenderness Extremities: Yes: WNL Edema: No Labs: CBC, BMP 10/31/16 05:48 10/31/16 05:48 Discharge Summary Reason For Visit: PNEUMONIA COUGH W/HEMOPTYSIS Current Active Problems Aspiration of formula (Acute) Cough with hemoptysis (Acute) Mood altered (Acute) Pneumonia (Acute) Hospital Course: (1) Cough with hemoptysis Code(s): R04.2 - HEMOPTYSIS (2) Sepsis Code(s): A41.9 - SEPSIS, UNSPECIFIED ORGANISM (3) Pneumonia Code(s): J18.9 - PNEUMONIA, UNSPECIFIED ORGANISM Qualifiers: (4) Dysphagia Code(s): R13.10 - DYSPHAGIA, UNSPECIFIED (5) COPD (chronic obstructive pulmonary disease) Code(s): J44.9 - CHRONIC OBSTRUCTIVE PULMONARY DISEASE, UNSPECIFIED Qualifiers : COPD type: COPD with acute exacerbation Qualified Code(s): J44.1 - Chronic obstructive pulmonary disease with (acute) exacerbation (6) Dystonia Code(s): G24.9 - DYSTONIA, UNSPECIFIED (7) GERD (gastroesophageal reflux disease) Code(s): K21.9 - GASTRO-ESOPHAGEAL REFLUX DISEASE WITHOUT ESOPHAGITIS (8) HTN (hypertension) Code(s): I10 - ESSENTIAL (PRIMARY) HYPERTENSION Qualifiers: (9) Depression (10) UTI Mr Nash is a pleasant 61 year old male who came in with hemoptysis, aspiration, and sepsis secondary to aspiration pneumonia and UTI. He was admitted to the hospital. He was seen by pulmonary and ID. He was started on vancomycin and zosyn and finished the full course. He was found to have reflux with aspiration of tube feeds. He originally refused continuous tube feeds, however after discussion he decided he was willing to try it. He tolerated it well and was able to hit his goal without aspiration. Currently he is safe for discharge back to SNF but remains at risk for aspiration. 32 minutes spent in preparation of this discharge Condition: Stable - Instructions Diet, Activity, Other Instructions: jevity 1.5 TF at 50ml/hr, 24 hour continuous. Activity per PT at [facility] Referrals: Abad Tanner MD [Staff Physician] - Jorge A Garcia MD [Staff Physician] - Disposition: LONGTERM FACILITY - Home Medications Comprehensive Discharge Medication List: Ambulatory Orders Diazepam [Valium] 5 mg GT TID 04/23/14 Albuterol Sulfate [Proair Hfa -] 1 - 2 inh PO QID PRN 04/12/15 Methenamine/Sodium Salicylate [Cystex Plus Tablet] 1 each GT DAILY 04/12/15 Heparin - 5,000 unit SQ BID vial 04/25/16 Albuterol 0.083% Nebulizer Jojo [Ventolin 0.083% Nebulizer Soln -] 1 amp NEB TID PRN 08/05/16 Docusate Sodium [Colace -] 300 mg GT HS 08/05/16 Metoclopramide HCl 5 mg GT BID 08/05/16 Polyethylene Glycol 3350 [Miralax 119 gm Btl -] 17 gm GT DAILY PRN 08/05/16 Ranitidine [Zantac -] 150 mg GT BID 08/05/16 Tramadol HCl 50 mg GT Q6H PRN 08/05/16 Bisacodyl [Biscolax] 10 mg RC PRN 09/21/16 Polyethylene Glycol 3350 [Miralax 119 gm Btl -] 17 gm PO DAILY 09/21/16 Zolpidem Tartrate [Ambien] 5 mg GT HS PRN #0 tablet MDD 10 10/31/16
[2016-10-31 14:32] VITALS: BP 107/69; PULSE 77; TEMP 98.7
--- NOTE | 2016-10-31 15:34 | PN ---
Progress Note, Physician History of Present Illness: patient stable doing well no sputum production patient feeling sad says he cannot take this any more - Current Medication List Current Medications: Active Medications Acetaminophen (Tylenol Oral Solution -) 650 mg GT Q6H PRN PRN Reason: FEVER OR PAIN Last Admin: 10/30/16 17:59 Dose: 650 mg Albuterol/Ipratropium (Duoneb -) 1 amp NEB QIDR [facility] Last Admin: 10/31/16 11:23 Dose: 1 amp Bisacodyl (Dulcolax Suppository -) 10 mg RC PRN PRN Last Admin: 10/30/16 10:09 Dose: 10 mg Diazepam (Valium -) 5 mg GT TID [facility] Last Admin: 10/31/16 13:46 Dose: 5 mg Docusate Sodium (Colace Liquid -) 300 mg GT HS [facility] Last Admin: 10/30/16 22:00 Dose: Not Given Heparin Sodium (Porcine) (Heparin -) 5,000 unit SQ BID [facility] Last Admin: 10/31/16 09:47 Dose: Not Given Piperacillin Sod/Tazobactam Sod (Zosyn 3.375gm Ivpb (Pre-Docked)) 50 mls @ 100 mls/hr IVPB Q8H-IV ESVIN PRN Reason: Protocol Last Admin: 10/31/16 09:48 Dose: 100 mls/hr Ondansetron HCl (Zofran Injection) 4 mg IVPB Q6H PRN PRN Reason: NAUSEA Last Admin: 10/18/16 11:29 Dose: 4 mg Pantoprazole Sodium (Protonix Packets For Oral Suspension -) 40 mg GT DAILY [facility] Last Admin: 10/31/16 09:48 Dose: 40 mg Polyethylene Glycol (Miralax (For Daily Use) -) 17 gm GT DAILY PRN PRN Reason: CONSTIPATION Ranitidine HCl (Zantac Oral Solution -) 150 mg GT BID [facility] Last Admin: 10/31/16 09:48 Dose: 150 mg Zolpidem Tartrate (Ambien -) 5 mg GT HS PRN PRN Reason: INSOMNIA Last Admin: 10/30/16 22:00 Dose: 5 mg - Objective Vital Signs: Vital Signs Temperature 98.7 F 10/31/16 14:31 Pulse Rate 77 10/31/16 14:31 Respiratory Rate 16 10/31/16 14:31 Blood Pressure 107/69 10/31/16 14:31 O2 Sat by Pulse Oximetry (%) 98 10/31/16 11:23 Constitutional: Yes: No Distress, Calm, Other (depressed) Cardiovascular: Yes: Regular Rate and Rhythm Respiratory: Yes: Regular, CTA Bilaterally Gastrointestinal: Yes: Normal Bowel Sounds, Soft, Other (peg in place) Musculoskeletal: Yes: WNL Extremities: Yes: Other Neurological: Yes: Alert, Oriented Psychiatric: Yes: Alert, Oriented Labs: CBC, BMP 10/31/16 05:48 10/31/16 05:48 INR, PTT INR 1.24 (0.82-1.09) H 10/18/16 00:57 Assessment/Plan Problems (1) Cough with hemoptysis Code(s): R04.2 - HEMOPTYSIS (2) Sepsis Code(s): A41.9 - SEPSIS, UNSPECIFIED ORGANISM (3) Pneumonia Code(s): J18.9 - PNEUMONIA, UNSPECIFIED ORGANISM Qualifiers: (4) Dysphagia Code(s): R13.10 - DYSPHAGIA, UNSPECIFIED (5) COPD (chronic obstructive pulmonary disease) Code(s): J44.9 - CHRONIC OBSTRUCTIVE PULMONARY DISEASE, UNSPECIFIED Qualifiers : COPD type: COPD with acute exacerbation Qualified Code(s): J44.1 - Chronic obstructive pulmonary disease with (acute) exacerbation (6) Dystonia Code(s): G24.9 - DYSTONIA, UNSPECIFIED (7) GERD (gastroesophageal reflux disease) Code(s): K21.9 - GASTRO-ESOPHAGEAL REFLUX DISEASE WITHOUT ESOPHAGITIS (8) HTN (hypertension) Code(s): I10 - ESSENTIAL (PRIMARY) HYPERTENSION Qualifiers: uti mrsa,multibacterial plan ct nutrition stable off of abx rest ct current mgmt
== END 2016-10-31 15:57 | DRG 871 ==
LOC: JER 23:58 → JERBED 10-18 01:44 → UNDOADMIN 10-18 01:59 → J4S 10-18 14:37
PROVIDERS: ADMIT Internal Medicine Geriatric Medicine; ATTEND Internal Medicine Geriatric Medicine
DX: A41.9 Sepsis, unspecified organism (principal); J69.0 Pneumonitis due to inhalation of food and vomit; R04.2 Hemoptysis; N39.0 Urinary tract infection, site not specified; R64 Cachexia; Z68.1 Body mass index [BMI] 19.9 or less, adult; J44.1 Chronic obstructive pulmonary disease with (acute) exacerbation; J44.0 Chronic obstructive pulmonary disease with (acute) lower respiratory infection; R13.10 Dysphagia, unspecified; K21.9 Gastro-esophageal reflux disease without esophagitis; I10 Essential (primary) hypertension; G24.9 Dystonia, unspecified; F32.9 Major depressive disorder, single episode, unspecified; Z93.59 Other cystostomy status
CPT/HCPCS: 36415; 36600; 71010-TC; 71250-TC; 74000-TC; 80048; 80053; 81003; 81015; 82803; 83605; 83735; 83880; 84100; 85025; 85610; 85730; 86850; 86900; 86901; 87040; 87086; 87186; 93005; 93010; 94640; 99285-25; G0480; J1644

== ENCOUNTER 2017-01-05 02:09 | Emergency (ER) | payer OTHER, BC ==
[2017-01-05 02:36] VITALS: BMI 16.6
[2017-01-05 03:12] LABS: BASOPHIL 0.4 % (0-2.0); EOSINOPHIL 6.3 % (0-4.5); MCH 32.8 pg (25.7-33.7); MCHC 33.8 g/dl (32.0-35.9); MEAN CELL VOLUME 96.8 fl (80-96); MEAN PLT VOLUME 9.6 fl (7.5-11.1); NEUTROPHILS 56.7 % (42.8-82.8); PLATELET COUNT 209 K/MM3 (134-434); RDW 12.8 % (11.9-15.9); WHITE BLOOD COUNT 7.1 K/mm3 (4.0-10.0)
[2017-01-05 03:14] LABS: URINE APPEARANCE CLOUDY; URINE BILIRUBIN NEGATIVE (NEGATIVE); URINE BLOOD NEGATIVE (NEGATIVE); URINE COLOR AMBER; URINE GLUCOSE (UA) NEGATIVE (NEGATIVE); URINE KETONE NEGATIVE (NEGATIVE); URINE NITRITE POSITIVE (NEGATIVE)
[2017-01-05 03:31] LABS: URINE LEUK ESTERASE 3+ (NEGATIVE); URINE PROTEIN 1+ (NEGATIVE)
[2017-01-05 03:35] LABS: URINE MUCUS RARE; URINE WBC 89 /hpf (3-5)
[2017-01-05 03:41] LABS: INR 1.04 (0.82-1.09); PROTHROMBIN TIME (PATIENT) 11.4 SEC (9.98-11.88)
[2017-01-05 03:50] LABS: ALBUMIN 3.5 g/dl (3.4-5.0); ANION GAP 5 (8-16); BILIRUBIN,TOTAL 0.5 mg/dL (0.2-1.0); CALCIUM 8.5 mg/dL (8.5-10.1); CO2 32 mmol/L (21-32); CREATININE 0.5 mg/dL (0.7-1.3); GLUCOSE,RANDOM 76 mg/dL (74-106); SGOT/AST 17 U/L (15-37); SGPT/ALT 27 U/L (12-78); TOT PROT 6.6 g/dl (6.4-8.2)
[2017-01-05 03:53] LABS: ALK PHOS 105 U/L (45-117); CPK 58 IU/L (39-308); TROPONIN I < 0.02 ng/ml (0.00-0.05)
[2017-01-05] MEDS ORDERED: PANTOPRAZOLE SODIUM 40 MG in SODIUM CHLORIDE 100 ML IVPB ONE (03:53)
[2017-01-05] MEDS ORDERED: PANTOPRAZOLE SODIUM 40 MG VIAL ONE (04:00)
--- NOTE | 2017-01-05 04:07 | PDOC ---
History of Present Illness - General Chief Complaint: Vomiting Blood Stated Complaint: GI BLEED Time Seen by Provider: 01/05/17 03:05 History Source: Patient - History of Present Illness Initial Comments: 01/05/17 04:41 61 year old male c/o vomiting, cough and fever tmax 101. c/o LUQ pain and blood tinged vomitus. Patient has a past medical history myotonic dystonia, aspiration PNA, UTI, NH: Xiao Tanner/ Levon Guerrero 0 Past History - Past Medical History Allergies/Adverse Reactions: Allergies Allergy/AdvReac Type Severity Reaction Status Date / Time iodine Allergy Severe Low Blood Verified 10/18/16 00:36 Pressure kiwi Allergy Intermediate Swelling Verified 10/18/16 00:36 latex Allergy Unknown Swelling Verified 10/18/16 00:36 shellfish derived Allergy Unknown Verified 10/18/16 00:36 ampicillin sodium Allergy Rash Verified 10/18/16 00:36 [From Unasyn] Fish Containing Products Allergy Difficulty Verified 10/18/16 00:36 Breathing Penicillins Allergy Rash Verified 10/18/16 00:36 sulbactam sodium Allergy Rash Verified 10/18/16 00:36 [From Unasyn] Sulfa (Sulfonamide Allergy Hives Verified 10/18/16 00:36 Antibiotics) [Sulfa(Sulfonamide Antibiotics)] Home Medications: Ambulatory Orders Diazepam [Valium] 5 mg GT TID 04/23/14 Albuterol Sulfate [Proair Hfa -] 1 - 2 inh PO QID PRN 04/12/15 Methenamine/Sodium Salicylate [Cystex Plus Tablet] 1 each GT DAILY 04/12/15 Heparin - 5,000 unit SQ BID vial 04/25/16 Albuterol 0.083% Nebulizer Jojo [Ventolin 0.083% Nebulizer Soln -] 1 amp NEB TID PRN 08/05/16 Docusate Sodium [Colace -] 300 mg GT HS 08/05/16 Metoclopramide HCl 5 mg GT BID 08/05/16 Polyethylene Glycol 3350 [Miralax 119 gm Btl -] 17 gm GT DAILY PRN 08/05/16 Ranitidine [Zantac -] 150 mg GT BID 08/05/16 Tramadol HCl 50 mg GT Q6H PRN 08/05/16 Bisacodyl [Biscolax] 10 mg RC PRN 09/21/16 Polyethylene Glycol 3350 [Miralax 119 gm Btl -] 17 gm PO DAILY 09/21/16 Zolpidem Tartrate [Ambien] 5 mg GT HS PRN #0 tablet MDD 10 10/31/16 Nitrofurantoin Monohyd/M-Cryst [Macrobid -] 100 mg PO BID #14 capsule 01/05/17 Pantoprazole Sodium [Protonix -] 20 mg PO DAILY #30 tablet.ec 01/05/17 Asthma: Yes COPD: Yes GI Disorders: Yes (GERD) Disorders: Yes (NEUROGENIC BLADDER) HTN: Yes Psychiatric Problems: Yes (Anxiety,) - Surgical History GI Surgery: Yes (supra pubic sx) Neurologic Surgery: Yes (cervical fusion, dystonia) Orthopedic Surgery: Yes - Immunization History Immunization Up to Date: Yes - Psycho/Social/Smoking Cessation Hx Anxiety: No Suicidal Ideation: No Smoking History: Never smoked Have you smoked in the past 12 months: No Number of Cigarettes Smoked Daily: 0 Cigars Per Day: 0 Hx Alcohol Use: No Drug/Substance Use Hx: No Substance Use Type: None Hx Substance Use Treatment: No Review of Systems - Review of Systems Able to Perform ROS?: Yes Is the patient limited Fijian proficient: No Constitutional: Yes: Fever ABD/GI: Yes: Nausea, Vomiting (bloody vomitus) : Yes: Other (suprapubic pain) *Physical Exam - Vital Signs Last Vital Signs Temp Pulse Resp BP Pulse Ox 98.0 F 76 20 118/87 98 01/05/17 02:34 01/05/17 02:34 01/05/17 02:34 01/05/17 02:34 01/05/17 02:38 - Physical Exam General Appearance: Yes: Appropriately Dressed, Other (hypertonic extramities) Respiratory/Chest: positive: Lungs Clear, Normal Breath Sounds. negative: Other Cardiovascular: positive: Regular Rhythm, Regular Rate Heart Score/ECG Review - History History: Slightly suspicious - Electrocardiogram EKG: Normal - Age Age: 45-65 - Risk Factors Based on the list above the patient has:: 1-2 risk factors - Troponin Troponin: </= normal limit - Score Heart Score - Total: 2 - ECG Intrepretation Rhythm: Regular Rhythm ED Treatment Course - LABORATORY CBC & Chemistry Diagram: 01/05/17 03:00 01/05/17 03:00 - ADDITIONAL ORDERS Additional order review: Laboratory Results 01/05/17 03:00 Urine Color Ophelia Urine Appearance Cloudy Urine pH 7.0 Urine Protein 1+ H Urine Glucose (UA) Negative Urine Ketones Negative Urine Blood Negative Urine Nitrite Positive Urine Bilirubin Negative Urine Urobilinogen 2.0 Ur Leukocyte Esterase 3+ H Urine RBC None Urine WBC 89 Urine Mucus Rare 01/05/17 03:00 RBC 3.99 L MCV 96.8 H MCHC 33.8 RDW 12.8 MPV 9.6 D Neutrophils % 56.7 Lymphocytes % 20.3 D Monocytes % 16.3 H Eosinophils % 6.3 H D Basophils % 0.4 Progress Note - Progress Note Progress Note: A: UTI; gastritis P: Protonix CBC CMP UA UCX OUtpatient GI follow up *DC/Admit/Observation/Transfer Diagnosis at time of Disposition: Urinary tract infection Qualifiers: Urinary tract infection type: acute cystitis Hematuria presence: without hematuria Qualified Code(s): N30.00 - Acute cystitis without hematuria Gastritis Qualifiers: Gastritis type: other gastritis Chronicity: unspecified Gastritis bleeding: with bleeding Qualified Code(s): K29.61 - Other gastritis with bleeding - Discharge Dispostion Disposition: [facility] - Prescriptions Prescriptions: Nitrofurantoin Monohyd/M-Cryst [Macrobid -] 100 mg PO BID #14 capsule Pantoprazole Sodium [Protonix -] 20 mg PO DAILY #30 tablet.ec - Referrals Referrals: Abad Tanner MD [Primary Care Provider] - - Patient Instructions Printed Discharge Instructions: Urinary Tract Infection Additional Instructions: please have patient follow up with GI> continue macrobid as prescribed. please call for urine culture results.
[2017-01-05] MEDS ORDERED: NITROFURANTOIN MACROCRYSTAL 50 MG CAPSULE (FP) PO SCH (05:45)
[2017-01-05] MEDS ORDERED: NITROFURANTOIN MACROCRYSTAL 50 MG CAPSULE (FP) ONE (05:48)
[2017-01-05 06:20] VITALS: BP 125/88; PULSE 87; TEMP 98.8
--- NOTE | 2017-01-05 09:55 | PN ---
Progress Note (short form) - Note Progress Note: I am quantitative consultant for [facility] NH weekend and last night (saturday night) @ 1 am I was called from [facility] that pt had fever, CP, bloody sputum and cough, I sent him to ER, d/w dr Juarez.
--- NOTE | 2017-01-05 18:38 | EKG ---
Test Reason : Blood Pressure : / mmHG Vent. Rate : 053 BPM Atrial Rate : 053 BPM P-R Int : 154 ms QRS Dur : 140 ms QT Int : 440 ms P-R-T Axes : 083 -56 057 degrees QTc Int : 412 ms SINUS BRADYCARDIA RIGHT BUNDLE BRANCH BLOCK LEFT ANTERIOR FASCICULAR BLOCK BIFASCICULAR BLOCK ABNORMAL ECG WHEN COMPARED WITH ECG OF 18-OCT-2016 01:20, VENT. RATE HAS DECREASED BY 58 BPM RIGHT BUNDLE BRANCH BLOCK HAS REPLACED INCOMPLETE RIGHT BUNDLE BRANCH BLOCK Confirmed by BYRON RIOC MD ([id number]) on 01/05/2017 6:38:08 PM Referred By: Confirmed By:BYRON RICO MD
== END 2017-01-05 06:34 ==
LOC: JER 02:09
PROC: 3E033GC Introduction of Other Therapeutic Substance into Peripheral Vein, Percutaneous Approach (ICD-10-PCS; principal; 2017-01-05)
DX: K29.61 Other gastritis with bleeding (principal); N30.00 Acute cystitis without hematuria; I10 Essential (primary) hypertension; J45.909 Unspecified asthma, uncomplicated; J44.9 Chronic obstructive pulmonary disease, unspecified; F41.9 Anxiety disorder, unspecified; N31.2 Flaccid neuropathic bladder, not elsewhere classified
CPT/HCPCS: 36415; 71010-TC; 80053; 81003; 81015; 84484; 85025; 85610; 86850; 86900; 86901; 87040; 87086; 87186; 93005; 93010; 96365; 99283-25

== ENCOUNTER 2017-01-10 10:57 | Inpatient (IN) | payer OTHER, BC ==
[2017-01-10 11:53] VITALS: BMI 16.6
[2017-01-10 12:03] LABS: BASOPHIL 0.4 % (0-2.0); MCH 32.3 pg (25.7-33.7)
[2017-01-10 12:06] LABS: EOSINOPHIL 4.4 % (0-4.5); MCHC 33.3 g/dl (32.0-35.9); MEAN CELL VOLUME 97.1 fl (80-96); NEUTROPHILS 73.6 % (42.8-82.8); PLATELET COUNT 227 K/MM3 (134-434); RDW 12.9 % (11.9-15.9); WHITE BLOOD COUNT 6.9 K/mm3 (4.0-10.0)
--- NOTE | 2017-01-10 12:21 | PDOC ---
History of Present Illness - General Chief Complaint: Hemoptysis Stated Complaint: GI Bleeding Time Seen by Provider: 01/10/17 11:05 History Source: Patient Exam Limitations: Physical Impairment - History of Present Illness Initial Comments: 01/10/17 12:18 Patient is a 61 year old male with a significant past medical history of cervical fusion s/p fracture, dystonia, neurogenic bladder, PEG tube presents with hemoptysis. Patient states that he is coughing and spitting up bright red blood. He notes that the blood is coming out of his nose when he is coughing. He also reports epigastric pain. Patient is actively coughing up bright red blood. He denies any fever, chills, nausea, vomiting, diarrhea, melena, pain with deep inspiration, light-headedness. Patient was recently admitted to [facility] with pneumonia/hemoptysis. Past History - Past Medical History Allergies/Adverse Reactions: Allergies Allergy/AdvReac Type Severity Reaction Status Date / Time iodine Allergy Severe Low Blood Verified 01/10/17 11:24 Pressure kiwi Allergy Intermediate Swelling Verified 01/10/17 11:24 latex Allergy Unknown Swelling Verified 01/10/17 11:24 shellfish derived Allergy Unknown Verified 01/10/17 11:24 ampicillin sodium Allergy Rash Verified 01/10/17 11:24 [From Unasyn] Fish Containing Products Allergy Difficulty Verified 01/10/17 11:24 Breathing Penicillins Allergy Rash Verified 01/10/17 11:24 sulbactam sodium Allergy Rash Verified 01/10/17 11:24 [From Unasyn] Sulfa (Sulfonamide Allergy Hives Verified 01/10/17 11:24 Antibiotics) [Sulfa(Sulfonamide Antibiotics)] Home Medications: Ambulatory Orders Diazepam [Valium] 5 mg GT TID 04/23/14 Albuterol Sulfate [Proair Hfa -] 1 - 2 inh PO QID PRN 04/12/15 Methenamine/Sodium Salicylate [Cystex Plus Tablet] 1 each GT DAILY 04/12/15 Heparin - 5,000 unit SQ BID vial 04/25/16 Albuterol 0.083% Nebulizer Jojo [Ventolin 0.083% Nebulizer Soln -] 1 amp NEB TID PRN 08/05/16 Docusate Sodium [Colace -] 300 mg GT HS 08/05/16 Metoclopramide HCl 5 mg GT BID 08/05/16 Polyethylene Glycol 3350 [Miralax 119 gm Btl -] 17 gm GT DAILY PRN 08/05/16 Ranitidine [Zantac -] 150 mg GT BID 08/05/16 Tramadol HCl 50 mg GT Q6H PRN 08/05/16 Bisacodyl [Biscolax] 10 mg RC PRN 09/21/16 Polyethylene Glycol 3350 [Miralax 119 gm Btl -] 17 gm PO DAILY 09/21/16 Zolpidem Tartrate [Ambien] 5 mg GT HS PRN #0 tablet MDD 10 10/31/16 Nitrofurantoin Monohyd/M-Cryst [Macrobid -] 100 mg PO BID #14 capsule 01/05/17 Pantoprazole Sodium [Protonix -] 20 mg PO DAILY #30 tablet.ec 01/05/17 Asthma: Yes COPD: Yes GI Disorders: Yes (GERD) Disorders: Yes (NEUROGENIC BLADDER) HTN: Yes Psychiatric Problems: Yes (Anxiety,) - Surgical History GI Surgery: Yes (supra pubic sx) Neurologic Surgery: Yes (cervical fusion, dystonia) Orthopedic Surgery: Yes - Immunization History Immunization Up to Date: Yes - Psycho/Social/Smoking Cessation Hx Anxiety: No Suicidal Ideation: No Smoking History: Never smoked Have you smoked in the past 12 months: No Number of Cigarettes Smoked Daily: 0 Cigars Per Day: 0 Hx Alcohol Use: No Drug/Substance Use Hx: No Substance Use Type: None Hx Substance Use Treatment: No Review of Systems - Review of Systems Constitutional: Yes: See HPI *Physical Exam - Vital Signs Last Vital Signs Temp Pulse Resp BP Pulse Ox 98.1 F 65 18 142/96 95 01/10/17 11:24 01/10/17 11:24 01/10/17 11:24 01/10/17 11:24 01/10/17 11:24 ED Treatment Course - LABORATORY CBC & Chemistry Diagram: 01/10/17 11:59 01/10/17 11:59 - RADIOLOGY Radiology Studies Ordered: Category Date Time Status CHEST X-RAY PORTABLE* [RAD] Stat Radiology 01/10/17 11:19 Completed
[2017-01-10 12:46] LABS: ALBUMIN 3.7 g/dl (3.4-5.0); ANION GAP 8 (8-16); CALCIUM 8.9 mg/dL (8.5-10.1); CO2 29 mmol/L (21-32); GLUCOSE,RANDOM 88 mg/dL (74-106)
[2017-01-10 12:49] LABS: ALK PHOS 100 U/L (45-117); BILIRUBIN,TOTAL 0.4 mg/dL (0.2-1.0); CREATININE 0.5 mg/dL (0.7-1.3); SGPT/ALT 39 U/L (12-78); TOT PROT 7.2 g/dl (6.4-8.2)
[2017-01-10 12:53] LABS: SGOT/AST 36 U/L (15-37)
--- NOTE | 2017-01-10 13:59 | PDOC ---
Attending Attestation - Resident Resident Name: Xander Villegas - ED Attending Attestation I have performed the following: I have examined & evaluated the patient, The case was reviewed & discussed with the resident, I agree w/resident's findings & plan, Exceptions are as noted - HPI HPI: 01/10/17 13:54 This pt is a 61 yo M with multiple presentations to the ER for cough [facility], reportedly had hemoptysis No fever - Physicial Exam PE: On examination: RRR CTA Abd - peg in place, soft, no tenderness - Medical Decision Making 01/10/17 13:55 Pt with hemoptysis Recently admitted with diagnosis of aspiration pneumonia Will do: 1. Labs 2. CXR 01/10/17 13:59 Laboratory Tests 01/10/17 01/10/17 11:59 11:59 WBC 6.9 Hgb 13.5 Hct 40.7 Plt Count 227 Sodium 139 Potassium 4.6 Chloride 102 Carbon Dioxide 29 BUN 19 H Creatinine 0.5 L Pt admitted to Dr Dos Santos Discharge Disposition - Diagnosis Hemoptysis - Discharge Dispostion Condition at time of disposition: Stable Last Admission D/C Date: 10/31/16 Admit: Yes
[2017-01-10] MEDS ORDERED: ALBUTEROL SO4 0.083% IH SOL 2.5 MG/3 ML VIAL.NEB. NEB PRN (14:53)
[2017-01-10] MEDS ORDERED: ACETAMINOPHEN 325 MG TABLET (FP) PO PRN (14:54)
[2017-01-10] MEDS ORDERED: ONDANSETRON 4 MG/2 ML VIAL IVPB PRN (14:54)
--- NOTE | 2017-01-10 14:57 | HP ---
Admitting History and Physical - Primary Care Physician PCP: Abad Tanner - Admission Chief Complaint: I'm coughing up blood History of Present Illness: Mr Nash is a pleasant 61 year old who comes in from [facility] with hemoptysis. He says that it began yesterday. He was in his normal state of health when he suddenly began to cough up blood. He was not coughing prior to this episode. He says it was mee blood and it was a significant amount. He says it is lessening and now it is streaks of blood. Aside from this he is without complaint. He denies fevers, chills, lightheadedness, dizziness, passing out, chest pain, shortness of breath, abdominal pain, nausea, vomiting, diarrhea, constipation, difficulty or pain on urination, or swelling. 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 (Muscular dystonia since age 21 year) Cardiovascular: Yes: HTN Pulmonary: Yes: Asthma, Pneumonia, Sleep Apnea, Other (Cavitary lesion in lung ruled out for TB) Gastrointestinal: Yes: Constipation, GERD, Other (dysphagia) Hepatobiliary: Yes: Other (as noted in medical record.) Renal/: Yes: BPH (s/p thermal prostate procedure), Neurogenic Bladder ( suprapubic tube ), UTI Heme/Onc: Yes: Other (as noted in medical record) Infectious Disease: Yes: Other (influenza b august 2013) Psych: Yes: Depression Musculoskeletal: Yes: Other (Muscular dystonia) - Past Surgical History Past Surgical History: Yes: Laminectomy (cervical laminectomy with fusion) - Smoking History Smoking history: Never smoked Have you smoked in the past 12 months: No Aproximately how many cigarettes per day: 0 - Alcohol/Substance Use Hx Alcohol Use: No History of Substance Use: reports: None Date of Last Use: 05/18/78 (estimated) - Social History Usual Living Arrangement: Yes: Assisted ADL: Support Services 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 History of Recent Travel: No Home Medications - Allergies Allergies/Adverse Reactions: Allergies Allergy/AdvReac Type Severity Reaction Status Date / Time iodine Allergy Severe Low Blood Verified 01/10/17 11:24 Pressure kiwi Allergy Intermediate Swelling Verified 01/10/17 11:24 latex Allergy Unknown Swelling Verified 01/10/17 11:24 shellfish derived Allergy Unknown Verified 01/10/17 11:24 ampicillin sodium Allergy Rash Verified 01/10/17 11:24 [From Unasyn] Fish Containing Products Allergy Difficulty Verified 01/10/17 11:24 Breathing Penicillins Allergy Rash Verified 01/10/17 11:24 sulbactam sodium Allergy Rash Verified 01/10/17 11:24 [From Unasyn] Sulfa (Sulfonamide Allergy Hives Verified 01/10/17 11:24 Antibiotics) [Sulfa(Sulfonamide Antibiotics)] - Home Medications Home Medications: Ambulatory Orders Diazepam [Valium] 5 mg GT TID 04/23/14 Albuterol Sulfate [Proair Hfa -] 1 - 2 inh PO QID PRN 04/12/15 Methenamine/Sodium Salicylate [Cystex Plus Tablet] 1 each GT DAILY 04/12/15 Heparin - 5,000 unit SQ BID vial 04/25/16 Albuterol 0.083% Nebulizer Jojo [Ventolin 0.083% Nebulizer Soln -] 1 amp NEB TID PRN 08/05/16 Docusate Sodium [Colace -] 300 mg GT HS 08/05/16 Metoclopramide HCl 5 mg GT BID 08/05/16 Polyethylene Glycol 3350 [Miralax 119 gm Btl -] 17 gm GT DAILY PRN 08/05/16 Ranitidine [Zantac -] 150 mg GT BID 08/05/16 Tramadol HCl 50 mg GT Q6H PRN 08/05/16 Bisacodyl [Biscolax] 10 mg RC PRN 09/21/16 Acetaminophen [Tylenol] 650 mg PO Q4HWA PRN 01/10/17 Bacitracin 500 units TP HS 01/10/17 Oxybutynin Chloride [Ditropan Xl] 10 mg PO DAILY 01/10/17 Sennosides [Senna] 2 tab PO DAILY 01/10/17 Family Disease History - Family Disease History Family Disease History: Diabetes: Father (mild cognitive decline), Heart Disease : Father, CA: Mother (, colon cancer), Other: Father Review of Systems Findings/Remarks: Full review of systems obtained, as per HPI and otherwise negative Physical Examination Vital Signs: Vital Signs Temperature 36.7 C 01/10/17 11:24 Pulse Rate 65 01/10/17 11:24 Respiratory Rate 18 01/10/17 11:24 Blood Pressure 142/96 01/10/17 11:24 O2 Sat by Pulse Oximetry (%) 95 01/10/17 11:24 Constitutional: Yes: No Distress, Calm, Thin Eyes: Yes: Conjunctiva Clear, EOM Intact, PERRL HENT: Yes: Atraumatic, Normocephalic Cardiovascular: Yes: Regular Rate and Rhythm. No: Gallop, Murmur, Rub Respiratory: Yes: Regular, CTA Bilaterally, Cough. No: Rales, Rhonchi, Wheezes Gastrointestinal: Yes: Normal Bowel Sounds, Soft. No: Distention, Tenderness Extremities: Yes: WNL Edema: No Labs: CBC, BMP 01/10/17 11:59 01/10/17 11:59 Imaging - Results Chest X-ray: Report Reviewed, Image Reviewed Problem List - Problems (1) Hemoptysis Assessment/Plan: -no sign of infection or aspiration -admit to the hospital -monitor H/H -consult pulmonary Code(s): R04.2 - HEMOPTYSIS (2) COPD (chronic obstructive pulmonary disease) Assessment/Plan: -not in exacerbation -continue home regimen Code(s): J44.9 - CHRONIC OBSTRUCTIVE PULMONARY DISEASE, UNSPECIFIED Qualifiers : COPD type: COPD with acute exacerbation Qualified Code(s): J44.1 - Chronic obstructive pulmonary disease with (acute) exacerbation (3) Dysphagia Assessment/Plan: -PEG tube in place Code(s): R13.10 - DYSPHAGIA, UNSPECIFIED (4) GERD (gastroesophageal reflux disease) Assessment/Plan: -continue ranitidine -consult GI for possible hematemesis Code(s): K21.9 - GASTRO-ESOPHAGEAL REFLUX DISEASE WITHOUT ESOPHAGITIS (5) Severe protein-calorie malnutrition Assessment/Plan: -continue tube feeds Code(s): E43 - UNSPECIFIED SEVERE PROTEIN-CALORIE MALNUTRITION
--- NOTE | 2017-01-10 16:51 | CON.GI ---
Consult Consult Specialty:: GI Referred by:: Dr. Dos Santos Reason for Consultation:: Hemoptysis - History of Present Illness Chief Complaint: I was spitting up alot of blood History of Present Illness: 61M admitted through [facility] for evaluation of hemoptysis. He was in [facility] up until last night when the coughing and spitting up of blood developed. He also described blood coming from his nose during this event He explains that this occurs intermittently and worsens when receiving tube feeds. He has a history of muscular dystonia and has become increasingly prone to aspiration given dysphagia. This led to a PEG placement as well 04/17/16 performed by myself. Of note aside from a 2cm hiatal hernia, the esophagus, stomach and duodenum. Alvino describes looser bowel movements since he began tube feeding as well as weight loss. He also describes pain along his left lower ribs and epigastrium, worse upon movement. His last colonoscopy was performed by Dr. Xiao 4 years ago and does not remember having any polyps. His mother of colon cancer. An EGD by Dr. Coe in 2009 revealed GERD and a hiatal hernia. He has a history of a recent left cavitary pneumonia requiring chest tube placement and VAT for pneumolysis. 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 (Muscular dystonia since age 21 year) Cardio/Vascular: Yes: HTN Pulmonary: Yes: Asthma, Pneumonia (Cavitary, left lung), Sleep Apnea, Other ( Cavitary lesion in lung ruled out for TB) Gastrointestinal: Yes: Constipation, GERD, Other (dysphagia) Hepatobiliary: Yes: Other (as noted in medical record.) Renal/: Yes: BPH (s/p thermal prostate procedure), Neurogenic Bladder ( suprapubic catheter), UTI Infectious Disease: Yes: Other (influenza b august 2013) Psych: Yes: Depression Musculoskeletal: Yes: Other (Muscular dystonia) - Past Surgical History Past Surgical History: Yes: Laminectomy (cervical laminectomy with fusion) Additional Surgical History: VAT (for cavitary PNA, TB ruled out), PEG, Suprapubic catheter - Alcohol/Substance Use Hx Alcohol Use: No History of Substance Use: reports: None, Marijuana (years ago. 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 Place of : [facility] History of Recent Travel: No Home Medications - Allergies Allergies/Adverse Reactions: Allergies Allergy/AdvReac Type Severity Reaction Status Date / Time iodine Allergy Severe Low Blood Verified 01/10/17 11:24 Pressure kiwi Allergy Intermediate Swelling Verified 01/10/17 11:24 latex Allergy Unknown Swelling Verified 01/10/17 11:24 shellfish derived Allergy Unknown Verified 01/10/17 11:24 ampicillin sodium Allergy Rash Verified 01/10/17 11:24 [From Unasyn] Fish Containing Products Allergy Difficulty Verified 01/10/17 11:24 Breathing Penicillins Allergy Rash Verified 01/10/17 11:24 sulbactam sodium Allergy Rash Verified 01/10/17 11:24 [From Unasyn] Sulfa (Sulfonamide Allergy Hives Verified 01/10/17 11:24 Antibiotics) [Sulfa(Sulfonamide Antibiotics)] - Home Medications Home Medications: Ambulatory Orders Diazepam [Valium] 5 mg GT TID 04/23/14 Albuterol Sulfate [Proair Hfa -] 1 - 2 inh PO QID PRN 04/12/15 Methenamine/Sodium Salicylate [Cystex Plus Tablet] 1 each GT DAILY 04/12/15 Heparin - 5,000 unit SQ BID vial 04/25/16 Albuterol 0.083% Nebulizer Jojo [Ventolin 0.083% Nebulizer Soln -] 1 amp NEB TID PRN 08/05/16 Docusate Sodium [Colace -] 300 mg GT HS 08/05/16 Metoclopramide HCl 5 mg GT BID 08/05/16 Polyethylene Glycol 3350 [Miralax 119 gm Btl -] 17 gm GT DAILY PRN 08/05/16 Ranitidine [Zantac -] 150 mg GT BID 08/05/16 Tramadol HCl 50 mg GT Q6H PRN 08/05/16 Bisacodyl [Biscolax] 10 mg RC PRN 09/21/16 Acetaminophen [Tylenol] 650 mg PO Q4HWA PRN 01/10/17 Bacitracin 500 units TP HS 01/10/17 Oxybutynin Chloride [Ditropan Xl] 10 mg PO DAILY 01/10/17 Sennosides [Senna] 2 tab PO DAILY 01/10/17 Family Disease History - Family Disease History Family Disease History: Diabetes: Father (mild cognitive decline), Heart Disease : Father, CA: Mother (, colon cancer), Other: Father Review of Systems - Review of Systems Constitutional: reports: Unintentional Wgt. Loss. denies: Chills, Loss of Appetite HENT: reports: Difficult Swallowing Cardiovascular: denies: Chest Pain Respiratory: reports: Cough, Hemoptysis Gastrointestinal: reports: Abdominal Pain. denies: Melena, Rectal Bleeding Physical Exam-GI Vital Signs: Vital Signs Temperature 97.4 F 01/10/17 16:30 Pulse Rate 61 01/10/17 16:30 Respiratory Rate 18 01/10/17 16:30 Blood Pressure 118/70 01/10/17 16:30 O2 Sat by Pulse Oximetry (%) 96 on RA 01/10/17 16:30 Constitutional: Yes: Calm Eyes: No: Sclera Icterus Cardiovascular: Yes: Regular Rate and Rhythm Gastrointestinal Inspection: Yes: Other (PEG in place in [facility]. No peripeg erythema, induration, fluctuance. rotating well. G-Tube was lavaged with 100cc sterile water. No coffee grounds, no blood. + Suprapubic catheter in place.). No: Distention ...Auscultate: Yes: Normoactive Bowel Sounds ...Palpate: Yes: Tenderness (Mild TTP at PEG site and along left lower ribs / intercostals) ...Percussion: No: Tympanitic ...Rectal Exam: Yes: Guaiac Negative (light lawrence stool in rectal vault, guaiac negative) Edema: No Neurological: Yes: Alert, Oriented Labs: CBC, BMP 01/10/17 11:59 01/10/17 11:59 Hepatic Panel Total Bilirubin 0.4 mg/dL (0.2-1.0) 01/10/17 11:59 AST 36 U/L (15-37) D 01/10/17 11:59 ALT 39 U/L (12-78) D 01/10/17 11:59 Alkaline Phosphatase 100 U/L (45-117) 01/10/17 11:59 Albumin 3.7 g/dl (3.4-5.0) 01/10/17 11:59 Imaging - Results Chest X-ray: Pending (No acute pathology) Problem List - Problems (1) Hemoptysis Assessment/Plan: Guaiac negative on exam, no blood or coffee grounds aspirated from NGT, no overt hemoptysis currently and hgb stable. Would continue to monitor and he will need pulmonary evaluation of hemoptysis Consider ENT evaluation Continue ranitidine 150mg BID via G-Tube Evaluation of positional left sided rib pain No GI interventions planned at this time Resume G-Tube feeds as he receives at [facility] Code(s): R04.2 - HEMOPTYSIS
--- NOTE | 2017-01-10 20:54 | HOSP ---
Subjective - Review of Symptoms Events since last encounter: Hospitalist Encounter Notified by RN, that the patient wanted to speak to Hospitalist regarding his tube feedings and anti anxiety medication Arrived to bedside, patientis awake, alert, with slow speech likely secondary to baseline Ordered Jevity with parameters, reviewed [facility] papers. Will continue to monitor Physical Examination Vital Signs: Vital Signs Temperature 98.4 F 01/10/17 16:21 Pulse Rate 80 01/10/17 16:21 Respiratory Rate 18 01/10/17 17:12 Blood Pressure 118/70 01/10/17 16:21 O2 Sat by Pulse Oximetry (%) 96 01/10/17 17:12
[2017-01-10] MEDS: RANITIDINE HCL 150 MG TABLET (FP) PO SCH (21:58)
[2017-01-10] MEDS: METOCLOPRAMIDE HCL 10 MG TABLET (FP) PO SCH (21:58)
[2017-01-10] MEDS: diazePAM 5 MG TABLET GT SCH (21:58)
[2017-01-10] MEDS ORDERED: DOCUSATE SODIUM 100 MG CAPSULE (FP) PO SCH (22:00)
[2017-01-10] MEDS ORDERED: BACITRACIN 500 UNIT TP SCH (22:00)
[2017-01-10] MEDS ORDERED: DOCUSATE NA 100 MG/10 ML UNIT-DOSE CUPS PO SCH (22:15)
[2017-01-10] MEDS: DOCUSATE NA 100 MG/10 ML UNIT-DOSE CUPS PEG SCH (23:07)
[2017-01-11] MEDS: diazePAM 5 MG TABLET GT SCH ×3 (05:37→21:45)
[2017-01-11 08:07] LABS: BASOPHIL 0.6 % (0-2.0); EOSINOPHIL 4.6 % (0-4.5); MCH 32.6 pg (25.7-33.7); MCHC 33.8 g/dl (32.0-35.9); MEAN CELL VOLUME 96.5 fl (80-96); MEAN PLT VOLUME 9.1 fl (7.5-11.1); NEUTROPHILS 60.8 % (42.8-82.8); PLATELET COUNT 221 K/MM3 (134-434); RDW 12.8 % (11.9-15.9); WHITE BLOOD COUNT 7.2 K/mm3 (4.0-10.0)
[2017-01-11 08:35] LABS: ANION GAP 6 (8-16); CALCIUM 8.7 mg/dL (8.5-10.1); CO2 32 mmol/L (21-32); CREATININE 0.7 mg/dL (0.7-1.3); GLUCOSE,RANDOM 112 mg/dL (74-106); MAGNESIUM 2.5 mg/dL (1.8-2.4); PHOSPHOROUS 4.2 mg/dL (2.5-4.9)
[2017-01-11] MEDS: SENNOSIDES 8.6MG TABLET (FP) PO SCH (11:16)
[2017-01-11] MEDS: METOCLOPRAMIDE HCL 10 MG TABLET (FP) PO SCH ×2 (11:17→21:45)
[2017-01-11] MEDS: OXYBUTYNIN CHLORIDE 5 MG TABLET PO SCH (11:18)
[2017-01-11] MEDS: RANITIDINE HCL 150 MG TABLET (FP) PO SCH ×2 (11:18→21:46)
--- NOTE | 2017-01-11 12:22 | CON.PULM ---
Consult Consult Specialty:: PULMONARY Referred by:: CARLEY Reason for Consultation:: HEMOPTYSIS - History of Present Illness Chief Complaint: BLOOD STREAKED SPUTUM History of Present Illness: Patient is a 61 year old male with a significant past medical history of cervical fusion s/p fracture, dystonia, neurogenic bladder, PEG tube presents with hemoptysis. Patient states that he is coughing and spitting up bright red blood. He notes that the blood is coming out of his nose when he is coughing. He also reports epigastric pain. Patient is actively coughing up bright red blood. He denies any fever, chills, nausea, vomiting, diarrhea, melena, pain with deep inspiration, light-headedness. Patient was recently admitted to [facility] with pneumonia/hemoptysis. 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 (Muscular dystonia since age 21 year) Cardio/Vascular: Yes: HTN Pulmonary: Yes: Asthma, Pneumonia (Cavitary, left lung), Sleep Apnea, Other ( Cavitary lesion in lung ruled out for TB) Gastrointestinal: Yes: Constipation, GERD, Other (dysphagia) Hepatobiliary: Yes: Other (as noted in medical record.) Renal/: Yes: BPH (s/p thermal prostate procedure), Neurogenic Bladder ( suprapubic catheter), UTI Infectious Disease: Yes: Other (influenza b august 2013) Psych: Yes: Depression Musculoskeletal: Yes: Other (Muscular dystonia) - Past Surgical History Past Surgical History: Yes: Laminectomy (cervical laminectomy with fusion) Additional Surgical History: VAT (for cavitary PNA, TB ruled out), PEG, Suprapubic catheter - Alcohol/Substance Use Hx Alcohol Use: No History of Substance Use: reports: None, Marijuana (years ago. 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 History of Recent Travel: No Home Medications - Allergies Allergies/Adverse Reactions: Allergies Allergy/AdvReac Type Severity Reaction Status Date / Time iodine Allergy Severe Low Blood Verified 01/10/17 11:24 Pressure kiwi Allergy Intermediate Swelling Verified 01/10/17 11:24 latex Allergy Unknown Swelling Verified 01/10/17 11:24 shellfish derived Allergy Unknown Verified 01/10/17 11:24 ampicillin sodium Allergy Rash Verified 01/10/17 11:24 [From Unasyn] Fish Containing Products Allergy Difficulty Verified 01/10/17 11:24 Breathing Penicillins Allergy Rash Verified 01/10/17 11:24 sulbactam sodium Allergy Rash Verified 01/10/17 11:24 [From Unasyn] Sulfa (Sulfonamide Allergy Hives Verified 01/10/17 11:24 Antibiotics) [Sulfa(Sulfonamide Antibiotics)] - Home Medications Home Medications: Ambulatory Orders Diazepam [Valium] 5 mg GT TID 04/23/14 Albuterol Sulfate [Proair Hfa -] 1 - 2 inh PO QID PRN 04/12/15 Methenamine/Sodium Salicylate [Cystex Plus Tablet] 1 each GT DAILY 04/12/15 Heparin - 5,000 unit SQ BID vial 04/25/16 Albuterol 0.083% Nebulizer Jojo [Ventolin 0.083% Nebulizer Soln -] 1 amp NEB TID PRN 08/05/16 Docusate Sodium [Colace -] 300 mg GT HS 08/05/16 Metoclopramide HCl 5 mg GT BID 08/05/16 Polyethylene Glycol 3350 [Miralax 119 gm Btl -] 17 gm GT DAILY PRN 08/05/16 Ranitidine [Zantac -] 150 mg GT BID 08/05/16 Tramadol HCl 50 mg GT Q6H PRN 08/05/16 Bisacodyl [Biscolax] 10 mg RC PRN 09/21/16 Acetaminophen [Tylenol] 650 mg PO Q4HWA PRN 01/10/17 Bacitracin 500 units TP HS 01/10/17 Oxybutynin Chloride [Ditropan Xl] 10 mg PO DAILY 01/10/17 Sennosides [Senna] 2 tab PO DAILY 01/10/17 Family Disease History - Family Disease History Family Disease History: Diabetes: Father (mild cognitive decline), Heart Disease : Father, CA: Mother (, colon cancer), Other: Father Review of Systems - Review of Systems Constitutional: denies: Fever Eyes: denies: Blurred Vision HENT: reports: Difficult Swallowing Neck: reports: Decreased ROM Cardiovascular: denies: Chest Pain Respiratory: reports: Cough, Hemoptysis Gastrointestinal: denies: Abdominal Pain Physical Exam Vital Sings: Vital Signs Temperature 97.4 F L 01/11/17 09:00 Pulse Rate 73 01/11/17 09:00 Respiratory Rate 18 01/11/17 09:00 Blood Pressure 117/91 01/11/17 09:00 O2 Sat by Pulse Oximetry (%) 97 01/10/17 21:00 Constitutional: Yes: Calm Eyes: Yes: EOM Intact HENT: Yes: Normocephalic Neck: Yes: Trachea Midline Cardiovascular: Yes: Regular Rate and Rhythm Respiratory: Yes: CTA Bilaterally Gastrointestinal: Yes: Soft Edema: No Labs: CBC, BMP 01/11/17 06:00 01/11/17 06:00 Imaging - Results Chest X-ray: Report Reviewed, Image Reviewed Cat Scan: Report Reviewed, Image Reviewed Problem List - Problems (1) Hemoptysis Code(s): R04.2 - HEMOPTYSIS (2) Aspiration of blood Code(s): R09.89 - OTH SYMPTOMS AND SIGNS INVOLVING THE CIRC AND RESP SYSTEMS (3) Aspiration of formula Code(s): P24.30 - ASPIRAT OF MILK AND REGURGITATED FOOD W/O RESP SYMP (4) Asthma Code(s): J45.909 - UNSPECIFIED ASTHMA, UNCOMPLICATED (5) COPD (chronic obstructive pulmonary disease) Code(s): J44.9 - CHRONIC OBSTRUCTIVE PULMONARY DISEASE, UNSPECIFIED Qualifiers : COPD type: COPD with acute exacerbation Qualified Code(s): J44.1 - Chronic obstructive pulmonary disease with (acute) exacerbation Assessment/Plan MULTIPLE ADMISSIONS FOR HEMOPTYSIS ETIOLOGY THOUGHT TO BE DUE TO BRONCHIECTASIS WHICH IS EVIDENT ON CHEST CT PATIENT IS INQUIRING ABOUT A BRONCHOSCOPY WILL DISCUSS WITH REST OF TEAM CONTINUE/O2/BRONCHODILATORS/ANTIBIOTICS WILL FOLLOW Bryan GAYTAN MD
--- NOTE | 2017-01-11 12:49 | PN ---
GI Progress Note Subjective: No hematemesis Mr. Nash showed me his kidney basin with some blood tinged sputum H/H remains stable - Objective Vital Signs: Vital Signs Temperature 97.4 F L 01/11/17 09:00 Pulse Rate 73 01/11/17 09:00 Respiratory Rate 18 01/11/17 09:00 Blood Pressure 117/91 01/11/17 09:00 O2 Sat by Pulse Oximetry (%) 95 01/11/17 10:00 Constitutional: Calm Eyes: No: Sclera Icterus Cardiovascular: Yes: Regular Rate and Rhythm Respiratory: Yes: CTA Bilaterally Gastrointestinal Inspection: No: Distention ...Auscultate: Yes: Normoactive Bowel Sounds ...Palpate: No: Tenderness Edema: No Neurological: Yes: Alert Labs: CBC, BMP 01/11/17 06:00 01/11/17 06:00 Problem List - Problems (1) Hemoptysis Assessment/Plan: Patient being evaluated by pulmonary No acute GI interventions planned Continue H2 lisandra GI prohylaxis Code(s): R04.2 - HEMOPTYSIS
--- NOTE | 2017-01-11 14:40 | PN ---
Progress Note, Physician Chief Complaint: Mr Nash is still having hemoptysis. No cp, sob, n/v. - Current Medication List Current Medications: Active Medications Acetaminophen (Tylenol -) 650 mg PO Q4H PRN PRN Reason: FEVER OR PAIN Albuterol Sulfate (Ventolin 0.083% Nebulizer Soln -) 1 amp NEB TIDR PRN PRN Reason: SHORT OF BREATH/WHEEZING Diazepam (Valium -) 5 mg GT TID [facility] Last Admin: 01/11/17 14:08 Dose: 5 mg Docusate Sodium (Colace Liquid -) 300 mg PEG HS [facility] Last Admin: 01/10/17 23:07 Dose: 300 mg Metoclopramide HCl (Reglan -) 5 mg PO BID [facility] Last Admin: 01/11/17 11:17 Dose: 5 mg Non-Formulary Medication (Bacitracin [Bacitracin]) 500 units TP HS [facility] Non-Formulary Medication (Methenamine/Sodium Salicylate [Cystex Plus Tablet]) 1 each GT DAILY [facility] Ondansetron HCl (Zofran Injection) 4 mg IVPB Q6H PRN PRN Reason: NAUSEA Oxybutynin Chloride (Ditropan -) 10 mg PO DAILY [facility] Last Admin: 01/11/17 11:18 Dose: Not Given Polyethylene Glycol (Miralax (For Daily Use) -) 17 gm GT DAILY PRN PRN Reason: CONSTIPATION Ranitidine HCl (Zantac -) 150 mg PO BID [facility] Last Admin: 01/11/17 11:18 Dose: 150 mg Senna (Senna -) 2 tab PO DAILY [facility] Last Admin: 01/11/17 11:16 Dose: Not Given Tramadol HCl (Ultram -) 50 mg PEG Q6H PRN PRN Reason: PAIN - Objective Vital Signs: Vital Signs Temperature 36.3 C L 01/11/17 09:00 Pulse Rate 73 01/11/17 09:00 Respiratory Rate 18 01/11/17 09:00 Blood Pressure 117/91 01/11/17 09:00 O2 Sat by Pulse Oximetry (%) 95 01/11/17 10:00 Constitutional: Yes: No Distress, Calm, Thin Cardiovascular: Yes: Regular Rate and Rhythm. No: Gallop, Murmur, Rub Respiratory: Yes: Regular, CTA Bilaterally, Cough. No: Rales, Rhonchi, Wheezes Gastrointestinal: Yes: Normal Bowel Sounds, Soft. No: Distention, Tenderness Extremities: Yes: WNL Edema: No Labs: CBC, BMP 01/11/17 06:00 01/11/17 06:00 Problem List - Problems (1) Hemoptysis Code(s): R04.2 - HEMOPTYSIS (2) COPD (chronic obstructive pulmonary disease) Code(s): J44.9 - CHRONIC OBSTRUCTIVE PULMONARY DISEASE, UNSPECIFIED Qualifiers : COPD type: COPD with acute exacerbation Qualified Code(s): J44.1 - Chronic obstructive pulmonary disease with (acute) exacerbation (3) Dysphagia Code(s): R13.10 - DYSPHAGIA, UNSPECIFIED (4) GERD (gastroesophageal reflux disease) Code(s): K21.9 - GASTRO-ESOPHAGEAL REFLUX DISEASE WITHOUT ESOPHAGITIS (5) Severe protein-calorie malnutrition Code(s): E43 - UNSPECIFIED SEVERE PROTEIN-CALORIE MALNUTRITION Assessment/Plan (1) Hemoptysis Assessment/Plan: -no signs of infection, no indication for antibiotics -still present -case d/w pulmonary, consider bronchoscopy Code(s): R04.2 - HEMOPTYSIS (2) COPD (chronic obstructive pulmonary disease) Assessment/Plan: -not in exacerbation -continue home regimen Code(s): J44.9 - CHRONIC OBSTRUCTIVE PULMONARY DISEASE, UNSPECIFIED Qualifiers : COPD type: COPD with acute exacerbation Qualified Code(s): J44.1 - Chronic obstructive pulmonary disease with (acute) exacerbation (3) Dysphagia Assessment/Plan: -PEG tube in place Code(s): R13.10 - DYSPHAGIA, UNSPECIFIED (4) GERD (gastroesophageal reflux disease) Assessment/Plan: -continue ranitidine -appreciate GI assistance, no interventions indicated at this time Code(s): K21.9 - GASTRO-ESOPHAGEAL REFLUX DISEASE WITHOUT ESOPHAGITIS (5) Severe protein-calorie malnutrition Assessment/Plan: -case d/w dietary -adjust TF Code(s): E43 - UNSPECIFIED SEVERE PROTEIN-CALORIE MALNUTRITION
[2017-01-11] MEDS: traMADol HCL 50 MG TABLET PEG PRN (18:46)
[2017-01-11] MEDS: DOCUSATE NA 100 MG/10 ML UNIT-DOSE CUPS PEG SCH (21:46)
[2017-01-12] MEDS: diazePAM 5 MG TABLET GT SCH ×3 (06:15→22:20)
[2017-01-12 08:00] LABS: BASOPHIL 0.9 % (0-2.0); EOSINOPHIL 6.9 % (0-4.5); MCH 32.7 pg (25.7-33.7); MCHC 33.8 g/dl (32.0-35.9); MEAN CELL VOLUME 96.9 fl (80-96); MEAN PLT VOLUME 8.9 fl (7.5-11.1); NEUTROPHILS 45.2 % (42.8-82.8); PLATELET COUNT 205 K/MM3 (134-434); RDW 12.5 % (11.9-15.9); WHITE BLOOD COUNT 5.5 K/mm3 (4.0-10.0)
[2017-01-12 08:43] LABS: ANION GAP 7 (8-16); CALCIUM 8.5 mg/dL (8.5-10.1); CO2 32 mmol/L (21-32); GLUCOSE,RANDOM 79 mg/dL (74-106); MAGNESIUM 2.5 mg/dL (1.8-2.4)
[2017-01-12 08:45] LABS: CREATININE 0.6 mg/dL (0.7-1.3); PHOSPHOROUS 4.1 mg/dL (2.5-4.9)
--- NOTE | 2017-01-12 09:55 | PN ---
Progress Note (short form) - Note Progress Note: Patient seen and examined Chart reviewed at length Case discussed with Dr Law. Currently sitting at the side of the bed, alert and appropriate. Hemoptysis persists without obvious discomfort or increased dyspnea. Labs, radiologicc procedures and progress notes reviewed. Selected Entries 01/11/17 01/12/17 21:00 06:46 Temperature 97.9 F Pulse Rate 53 L Respiratory 18 Rate O2 Sat by Pulse 95 Oximetry (%) Oxygen Delivery Room Air Method Laboratory Tests 01/10/17 01/12/17 01/12/17 11:59 06:30 06:30 WBC 5.5 Hgb 12.6 Hct 37.2 Plt Count 205 Sodium 140 Potassium 3.8 Chloride 101 Carbon Dioxide 32 BUN 22 H Creatinine 0.6 L Random Glucose 79 D Calcium 8.5 Phosphorus 4.1 Magnesium 2.5 H Albumin 3.7 Chest Decreased breath sounds w/o wheezing or rhonchi Decreased phonation Asymmetric distortion of bony thorax related to muscular atrophy Cor RRR Abd Soft nontender GT and Suprapubic catheter Ext Evidence of muscle wasting No edema Neuro No new focal deficit Muscle atrophy diffusely Assessment and Plan Hemoptysis Recurrent problem, likely related to chronic bronchiectasis May require empiric antibiotic therapy COPD Bronchiectasis as above ?Role of long -term chronic antibiotic suppression therapy GERD/Hiatal Hernia/PEG status On GT feeds for dysphagia Aspiration risk As above H/O cavitary pneumonia post VAT procedure 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 Serum albumin is 3.7 Chronic suprapubic catheter status BPH Post prostate procedure Post-op cervical laminectomy HTN Stable GERARDO By history H/O Constipation Continue Rx as outlined Consider empiric antibiotic Rx. Bronchoscopy if necessary as per Pulmonary team
--- NOTE | 2017-01-12 10:14 | PN ---
Progress Note (short form) - Note Progress Note: PULMONARY VSS AFEBRILE LESS HEMOPTYSIS ANICTERIC CHEST DISTANT BUT CLEAR S1S2 BS_ NO EDEMA LABS/MEDS/NOTES/IMAGING REVIEWED (1) Hemoptysis Code(s): R04.2 - HEMOPTYSIS (2) Aspiration of blood Code(s): R09.89 - OTH SYMPTOMS AND SIGNS INVOLVING THE CIRC AND RESP SYSTEMS (3) Aspiration of formula Code(s): P24.30 - ASPIRAT OF MILK AND REGURGITATED FOOD W/O RESP SYMP (4) Asthma Code(s): J45.909 - UNSPECIFIED ASTHMA, UNCOMPLICATED (5) COPD (chronic obstructive pulmonary disease) Code(s): J44.9 - CHRONIC OBSTRUCTIVE PULMONARY DISEASE, UNSPECIFIED Qualifiers : COPD type: COPD with acute exacerbation Qualified Code(s): J44.1 - Chronic obstructive pulmonary disease with (acute) exacerbation Assessment/Plan MULTIPLE ADMISSIONS FOR HEMOPTYSIS ETIOLOGY THOUGHT TO BE DUE TO BRONCHIECTASIS WHICH IS EVIDENT ON CHEST CT PATIENT IS INQUIRING ABOUT A REPEAT BRONCHOSCOPY PATIENT HAD PROCEDURE IN PAST WHICH DID NOT SHOW ANY ENDOBRONCHIAL PATHOLOGY WHICH WOULD ACCOUNT FOR FOR HEMOPTYSIS CONTINUE/O2/BRONCHODILATORS/ANTIBIOTICS Problem List - Problems (1) Hemoptysis Code(s): R04.2 - HEMOPTYSIS (2) Aspiration of blood Code(s): R09.89 - OTH SYMPTOMS AND SIGNS INVOLVING THE CIRC AND RESP SYSTEMS (3) Aspiration of formula Code(s): P24.30 - ASPIRAT OF MILK AND REGURGITATED FOOD W/O RESP SYMP (4) Asthma Code(s): J45.909 - UNSPECIFIED ASTHMA, UNCOMPLICATED (5) COPD (chronic obstructive pulmonary disease) Code(s): J44.9 - CHRONIC OBSTRUCTIVE PULMONARY DISEASE, UNSPECIFIED Qualifiers : COPD type: COPD with acute exacerbation Qualified Code(s): J44.1 - Chronic obstructive pulmonary disease with (acute) exacerbation
[2017-01-12] MEDS: METOCLOPRAMIDE HCL 10 MG TABLET (FP) PO SCH ×2 (10:29→22:20)
[2017-01-12] MEDS: RANITIDINE HCL 150 MG TABLET (FP) PO SCH ×2 (10:29→22:20)
[2017-01-12] MEDS: SENNOSIDES 8.6MG TABLET (FP) PO SCH (10:29)
[2017-01-12] MEDS: OXYBUTYNIN CHLORIDE 5 MG TABLET PO SCH (10:29)
[2017-01-12] MEDS ORDERED: cefTRIAXone SODIUM 1 GM VIAL ONE (13:17)
[2017-01-12] MEDS ORDERED: DEXTROSE 5%-WATER - 50 ML IVPB ONE (13:17)
[2017-01-12] MEDS: CEFTRIAXONE 1 GM in DEXTROSE 5%-WATER - 50 ML IVPB SCH (14:46)
[2017-01-12] MEDS: POLYETHYLENE GLYCOL 3350 119 GM BTL GT PRN (14:46)
[2017-01-12] MEDS ORDERED: PT OWN MED DRAWER 7, Y5N ONE ×2 (21:30→22:22)
[2017-01-12] MEDS: DOCUSATE NA 100 MG/10 ML UNIT-DOSE CUPS PEG SCH (22:20)
[2017-01-13] MEDS: diazePAM 5 MG TABLET GT SCH ×3 (07:18→21:53)
[2017-01-13 07:35] LABS: BASOPHIL 0.5 % (0-2.0); EOSINOPHIL 6.1 % (0-4.5); MCH 32.5 pg (25.7-33.7); MCHC 33.6 g/dl (32.0-35.9); MEAN CELL VOLUME 96.6 fl (80-96); MEAN PLT VOLUME 9.1 fl (7.5-11.1); NEUTROPHILS 59.4 % (42.8-82.8); PLATELET COUNT 204 K/MM3 (134-434); RDW 12.5 % (11.9-15.9); WHITE BLOOD COUNT 6.9 K/mm3 (4.0-10.0)
[2017-01-13 08:19] LABS: ALBUMIN 3.3 g/dl (3.4-5.0); ANION GAP 3 (8-16); CO2 36 mmol/L (21-32); CREATININE 0.6 mg/dL (0.7-1.3); GLUCOSE,RANDOM 118 mg/dL (74-106); SGOT/AST 16 U/L (15-37); SGPT/ALT 29 U/L (12-78)
[2017-01-13 08:21] LABS: ALK PHOS 95 U/L (45-117); BILIRUBIN,TOTAL 0.6 mg/dL (0.2-1.0); CALCIUM 8.6 mg/dL (8.5-10.1); TOT PROT 6.3 g/dl (6.4-8.2)
[2017-01-13] MEDS ORDERED: cefTRIAXone SODIUM 1 GM VIAL ONE (08:45)
[2017-01-13] MEDS ORDERED: DEXTROSE 5%-WATER - 50 ML IVPB ONE (08:45)
--- NOTE | 2017-01-13 09:14 | PN ---
Progress Note (short form) - Note Progress Note: Patient seen and examined Chart reviewed. Case discussed with Dr Law yesterday. Currently lying supine in bed, alert and appropriate. Hemoptysis persists without obvious discomfort or increased dyspnea. Labs, radiologicc procedures and progress notes reviewed. Constipation noted. Antibiotics started. Selected Entries 01/12/17 01/13/17 21:00 06:00 Temperature 98.3 F Pulse Rate 62 Respiratory 18 Rate Blood Pressure 96/63 O2 Sat by Pulse 97 Oximetry (%) Oxygen Delivery Room Air Method Laboratory Tests 01/13/17 01/13/17 06:30 06:30 WBC 6.9 Hgb 12.9 Hct 38.3 Plt Count 204 Sodium 140 Potassium 4.2 Chloride 101 Carbon Dioxide 36 H BUN 18 Creatinine 0.6 L Random Glucose 118 H D Calcium 8.6 Total Bilirubin 0.6 D AST 16 D ALT 29 D Alkaline Phosphatase 95 Total Protein 6.3 L Albumin 3.3 L Chest Decreased breath sounds w/o wheezing or rhonchi Decreased phonation Asymmetric distortion of bony thorax related to muscular atrophy Cor RRR Abd Soft nontender GT and Suprapubic catheter Ext Evidence of muscle wasting No edema Neuro No new focal deficit Muscle atrophy diffusely Assessment and Plan Hemoptysis Recurrent problem, likely related to chronic bronchiectasis Started on empiric antibiotic therapy. May require [facility] Rx COPD Bronchiectasis as above ?Role of long -term chronic antibiotic suppression therapy GERD/Hiatal Hernia/PEG status On GT feeds for dysphagia Aspiration risk As above H/O cavitary pneumonia post VAT procedure 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 Serum albumin is 3.7 Chronic suprapubic catheter status BPH Post prostate procedure Post-op cervical laminectomy HTN Stable GERARDO By history H/O Constipation Miralax, add colace Continue Rx as outlined Continue empiric antibiotic Rx. Bronchoscopy if necessary as per Pulmonary team
[2017-01-13] MEDS ORDERED: DOCUSATE NA 100 MG/10 ML UNIT-DOSE CUPS PEG SCH (10:00)
[2017-01-13] MEDS: RANITIDINE HCL 150 MG TABLET (FP) PO SCH ×2 (10:19→21:56)
[2017-01-13] MEDS: METOCLOPRAMIDE HCL 10 MG TABLET (FP) PO SCH ×2 (10:19→21:53)
[2017-01-13] MEDS: SENNOSIDES 8.6MG TABLET (FP) PO SCH (10:19)
[2017-01-13] MEDS: CEFTRIAXONE 1 GM in DEXTROSE 5%-WATER - 50 ML IVPB SCH (10:19)
[2017-01-13] MEDS: POLYETHYLENE GLYCOL 3350 119 GM BTL GT PRN (10:20)
[2017-01-13] MEDS: OXYBUTYNIN CHLORIDE 5 MG TABLET PO SCH (10:20)
--- NOTE | 2017-01-13 10:22 | PN ---
Progress Note (short form) - Note Progress Note: PULMONARY VSS AFEBRILE HEMOPTYSIS CONTINUES ANICTERIC CHEST DISTANT BUT CLEAR S1S2 BS_ NO EDEMA LABS/MEDS/NOTES/IMAGING REVIEWED (1) Hemoptysis Code(s): R04.2 - HEMOPTYSIS (2) Aspiration of blood Code(s): R09.89 - OTH SYMPTOMS AND SIGNS INVOLVING THE CIRC AND RESP SYSTEMS (3) Aspiration of formula Code(s): P24.30 - ASPIRAT OF MILK AND REGURGITATED FOOD W/O RESP SYMP (4) Asthma Code(s): J45.909 - UNSPECIFIED ASTHMA, UNCOMPLICATED (5) COPD (chronic obstructive pulmonary disease) Code(s): J44.9 - CHRONIC OBSTRUCTIVE PULMONARY DISEASE, UNSPECIFIED Qualifiers : COPD type: COPD with acute exacerbation Qualified Code(s): J44.1 - Chronic obstructive pulmonary disease with (acute) exacerbation Assessment/Plan MULTIPLE ADMISSIONS FOR HEMOPTYSIS ETIOLOGY THOUGHT TO BE DUE TO BRONCHIECTASIS WHICH IS EVIDENT ON CHEST CT PATIENT HAD FOB IN PAST WHICH DID NOT SHOW ANY ENDOBRONCHIAL PATHOLOGY WHICH WOULD ACCOUNT FOR FOR HEMOPTYSIS CONTINUE/O2/BRONCHODILATORS/ANTIBIOTICS Bryan GAYTAN MD Problem List - Problems (1) Hemoptysis Code(s): R04.2 - HEMOPTYSIS (2) Aspiration of blood Code(s): R09.89 - OTH SYMPTOMS AND SIGNS INVOLVING THE CIRC AND RESP SYSTEMS (3) Aspiration of formula Code(s): P24.30 - ASPIRAT OF MILK AND REGURGITATED FOOD W/O RESP SYMP (4) Asthma Code(s): J45.909 - UNSPECIFIED ASTHMA, UNCOMPLICATED (5) COPD (chronic obstructive pulmonary disease) Code(s): J44.9 - CHRONIC OBSTRUCTIVE PULMONARY DISEASE, UNSPECIFIED Qualifiers : COPD type: COPD with acute exacerbation Qualified Code(s): J44.1 - Chronic obstructive pulmonary disease with (acute) exacerbation
[2017-01-13] MEDS ORDERED: PT OWN MED DRAWER 7, Y5N ONE ×3 (13:37→21:55)
[2017-01-13] MEDS: DOCUSATE NA 100 MG/10 ML UNIT-DOSE CUPS PEG SCH (21:54)
[2017-01-14] MEDS: diazePAM 5 MG TABLET GT SCH ×3 (06:24→22:19)
[2017-01-14] MEDS ORDERED: DEXTROSE 5%-WATER - 50 ML IVPB ONE (09:16)
[2017-01-14] MEDS ORDERED: cefTRIAXone SODIUM 1 GM VIAL ONE (09:16)
[2017-01-14] MEDS: SENNOSIDES 8.6MG TABLET (FP) PO SCH (09:25)
[2017-01-14] MEDS: METOCLOPRAMIDE HCL 10 MG TABLET (FP) PO SCH ×2 (09:25→22:19)
[2017-01-14] MEDS: RANITIDINE HCL 150 MG TABLET (FP) PO SCH ×2 (09:25→22:24)
[2017-01-14] MEDS: OXYBUTYNIN CHLORIDE 5 MG TABLET PO SCH (09:25)
[2017-01-14] MEDS: CEFTRIAXONE 1 GM in DEXTROSE 5%-WATER - 50 ML IVPB SCH (09:26)
--- NOTE | 2017-01-14 10:34 | PN ---
Progress Note, Physician Chief Complaint: Mr Nash complains of chest pain with coughing. Says he is still having hemoptysis. no chest pressure, shortness of breath, nausea/vomiting. - Current Medication List Current Medications: Active Medications Acetaminophen (Tylenol -) 650 mg PO Q4H PRN PRN Reason: FEVER OR PAIN Albuterol Sulfate (Ventolin 0.083% Nebulizer Soln -) 1 amp NEB TIDR PRN PRN Reason: SHORT OF BREATH/WHEEZING Diazepam (Valium -) 5 mg GT TID [facility] Last Admin: 01/14/17 06:24 Dose: 5 mg Docusate Sodium (Colace Liquid -) 300 mg PEG HS [facility] Last Admin: 01/13/17 21:54 Dose: 300 mg Ceftriaxone Sodium 1 gm/ (Dextrose) 50 mls @ 100 mls/hr IVPB DAILY [facility] Last Admin: 01/14/17 09:26 Dose: 100 mls/hr Metoclopramide HCl (Reglan -) 5 mg PO BID [facility] Last Admin: 01/14/17 09:25 Dose: 5 mg Non-Formulary Medication (Bacitracin [Bacitracin]) 500 units TP HS [facility] Non-Formulary Medication (Methenamine/Sodium Salicylate [Cystex Plus Tablet]) 1 each GT DAILY [facility] Ondansetron HCl (Zofran Injection) 4 mg IVPB Q6H PRN PRN Reason: NAUSEA Oxybutynin Chloride (Ditropan -) 10 mg PO DAILY [facility] Last Admin: 01/14/17 09:25 Dose: Not Given Polyethylene Glycol (Miralax (For Daily Use) -) 17 gm GT DAILY PRN PRN Reason: CONSTIPATION Last Admin: 01/13/17 10:20 Dose: 17 gm Ranitidine HCl (Zantac -) 150 mg PO BID [facility] Last Admin: 01/14/17 09:25 Dose: 150 mg Senna (Senna -) 2 tab PO DAILY [facility] Last Admin: 01/14/17 09:25 Dose: Not Given Tramadol HCl (Ultram -) 50 mg PEG Q6H PRN PRN Reason: PAIN Last Admin: 01/11/17 18:46 Dose: 50 mg - Objective Vital Signs: Vital Signs Temperature 36.5 C 01/14/17 08:20 Pulse Rate 73 01/14/17 08:20 Respiratory Rate 20 01/14/17 08:20 Blood Pressure 107/68 01/14/17 08:20 O2 Sat by Pulse Oximetry (%) 96 01/13/17 20:49 Constitutional: Yes: No Distress, Calm, Thin Cardiovascular: Yes: Regular Rate and Rhythm. No: Gallop, Murmur, Rub Respiratory: Yes: Regular, CTA Bilaterally. No: Rales, Rhonchi, Wheezes Gastrointestinal: Yes: Normal Bowel Sounds, Soft. No: Distention, Tenderness Extremities: Yes: WNL Edema: No Labs: CBC, BMP 01/13/17 06:30 01/13/17 06:30 Problem List - Problems (1) Hemoptysis Code(s): R04.2 - HEMOPTYSIS (2) COPD (chronic obstructive pulmonary disease) Code(s): J44.9 - CHRONIC OBSTRUCTIVE PULMONARY DISEASE, UNSPECIFIED Qualifiers : COPD type: COPD with acute exacerbation Qualified Code(s): J44.1 - Chronic obstructive pulmonary disease with (acute) exacerbation (3) Dysphagia Code(s): R13.10 - DYSPHAGIA, UNSPECIFIED (4) GERD (gastroesophageal reflux disease) Code(s): K21.9 - GASTRO-ESOPHAGEAL REFLUX DISEASE WITHOUT ESOPHAGITIS (5) Severe protein-calorie malnutrition Code(s): E43 - UNSPECIFIED SEVERE PROTEIN-CALORIE MALNUTRITION Assessment/Plan (1) Hemoptysis Assessment/Plan: -secondary to bronchiectasis -pulmonary following -continue bronchodilators -placed on rocephin for inflammation control -will d/w pulmonary about terminal carman plan Code(s): R04.2 - HEMOPTYSIS (2) COPD (chronic obstructive pulmonary disease) Assessment/Plan: -not in exacerbation -continue home regimen Code(s): J44.9 - CHRONIC OBSTRUCTIVE PULMONARY DISEASE, UNSPECIFIED Qualifiers : COPD type: COPD with acute exacerbation Qualified Code(s): J44.1 - Chronic obstructive pulmonary disease with (acute) exacerbation (3) Dysphagia Assessment/Plan: -PEG tube in place Code(s): R13.10 - DYSPHAGIA, UNSPECIFIED (4) GERD (gastroesophageal reflux disease) Assessment/Plan: -continue ranitidine -appreciate GI assistance, no interventions indicated at this time Code(s): K21.9 - GASTRO-ESOPHAGEAL REFLUX DISEASE WITHOUT ESOPHAGITIS (5) Severe protein-calorie malnutrition Assessment/Plan: -TF adjusted and tolerating Code(s): E43 - UNSPECIFIED SEVERE PROTEIN-CALORIE MALNUTRITION
[2017-01-14] MEDS: traMADol HCL 50 MG TABLET PEG PRN (12:37)
--- NOTE | 2017-01-14 13:58 | PN ---
Progress Note, Physician History of Present Illness: pulmonary alert,less hemoptysis,+ left sided chest discomfort with movement - Current Medication List Current Medications: Active Medications Acetaminophen (Tylenol -) 650 mg PO Q4H PRN PRN Reason: FEVER OR PAIN Albuterol Sulfate (Ventolin 0.083% Nebulizer Soln -) 1 amp NEB TIDR PRN PRN Reason: SHORT OF BREATH/WHEEZING Diazepam (Valium -) 5 mg GT TID [facility] Last Admin: 01/14/17 06:24 Dose: 5 mg Docusate Sodium (Colace Liquid -) 300 mg PEG HS [facility] Last Admin: 01/13/17 21:54 Dose: 300 mg Ceftriaxone Sodium 1 gm/ (Dextrose) 50 mls @ 100 mls/hr IVPB DAILY [facility] Last Admin: 01/14/17 09:26 Dose: 100 mls/hr Metoclopramide HCl (Reglan -) 5 mg PO BID [facility] Last Admin: 01/14/17 09:25 Dose: 5 mg Ondansetron HCl (Zofran Injection) 4 mg IVPB Q6H PRN PRN Reason: NAUSEA Oxybutynin Chloride (Ditropan -) 10 mg PO DAILY [facility] Last Admin: 01/14/17 09:25 Dose: Not Given Polyethylene Glycol (Miralax (For Daily Use) -) 17 gm GT DAILY PRN PRN Reason: CONSTIPATION Last Admin: 01/13/17 10:20 Dose: 17 gm Ranitidine HCl (Zantac -) 150 mg PO BID [facility] Last Admin: 01/14/17 09:25 Dose: 150 mg Senna (Senna -) 2 tab PO DAILY [facility] Last Admin: 01/14/17 09:25 Dose: Not Given Tramadol HCl (Ultram -) 50 mg PEG Q6H PRN PRN Reason: PAIN Last Admin: 01/14/17 12:37 Dose: 50 mg - Objective Vital Signs: Vital Signs Temperature 97.7 F 01/14/17 08:20 Pulse Rate 73 01/14/17 08:20 Respiratory Rate 20 01/14/17 08:20 Blood Pressure 107/68 01/14/17 08:20 O2 Sat by Pulse Oximetry (%) 97 01/14/17 09:00 Constitutional: Yes: Calm, Cachectic Eyes: Yes: Occular Prosthesis HENT: Yes: WNL Neck: Yes: WNL Cardiovascular: Yes: Regular Rate and Rhythm, S1, S2 Respiratory: Yes: Diminished Gastrointestinal: Yes: Normal Bowel Sounds, Soft, Other (+peg) Extremities: Yes: WNL Edema: No Assessment/Plan (1) Hemoptysis Code(s): R04.2 - HEMOPTYSIS (2) Aspiration of blood Code(s): R09.89 - OTH SYMPTOMS AND SIGNS INVOLVING THE CIRC AND RESP SYSTEMS (3) Aspiration of formula Code(s): P24.30 - ASPIRAT OF MILK AND REGURGITATED FOOD W/O RESP SYMP (4) Asthma Code(s): J45.909 - UNSPECIFIED ASTHMA, UNCOMPLICATED (5) COPD (chronic obstructive pulmonary disease) Code(s): J44.9 - CHRONIC OBSTRUCTIVE PULMONARY DISEASE, UNSPECIFIED Qualifiers : COPD type: COPD with acute exacerbation Qualified Code(s): J44.1 - Chronic obstructive pulmonary disease with (acute) exacerbation Assessment/Plan HEMOPTYSIS BRONCHIECTASIS DYSTONIA DYSPHAGIA PATIENT HAD FOB IN PAST WHICH DID NOT SHOW ANY ENDOBRONCHIAL PATHOLOGY CONTINUEO2 BRONCHODILATORS ANTIBIOTICS DR MURDOCK Problem List - Problems (1) Hemoptysis Code(s): R04.2 - HEMOPTYSIS (2) Aspiration of blood Code(s): R09.89 - OTH SYMPTOMS AND SIGNS INVOLVING THE CIRC AND RESP SYSTEMS (3) Aspiration of formula Code(s): P24.30 - ASPIRAT OF MILK AND REGURGITATED FOOD W/O RESP SYMP (4) Asthma Code(s): J45.909 - UNSPECIFIED ASTHMA, UNCOMPLICATED (5) COPD (chronic obstructive pulmonary disease) Code(s): J44.9 - CHRONIC OBSTRUCTIVE PULMONARY DISEASE, UNSPECIFIED Qualifiers : COPD type: COPD with acute exacerbation Qualified Code(s): J44.1 - Chronic obstructive pulmonary disease with (acute) exacerbation
[2017-01-14] MEDS: SODIUM SALICYLATE GT SCH (18:37)
[2017-01-14] MEDS: [UNRECOGNIZED DRUG - OTHER] GT SCH (18:37)
[2017-01-14] MEDS: METHENAMINE GT SCH (18:37)
[2017-01-14] MEDS: DOCUSATE NA 100 MG/10 ML UNIT-DOSE CUPS PEG SCH (22:19)
[2017-01-15] MEDS: diazePAM 5 MG TABLET GT SCH ×3 (05:39→21:30)
[2017-01-15 07:26] LABS: BASOPHIL 0.6 % (0-2.0); MCH 32.4 pg (25.7-33.7); MCHC 33.3 g/dl (32.0-35.9); MEAN CELL VOLUME 97.1 fl (80-96); MEAN PLT VOLUME 9.1 fl (7.5-11.1); NEUTROPHILS 54.3 % (42.8-82.8); PLATELET COUNT 203 K/MM3 (134-434); RDW 12.6 % (11.9-15.9); WHITE BLOOD COUNT 5.4 K/mm3 (4.0-10.0)
[2017-01-15 08:17] LABS: ANION GAP 8 (8-16); CALCIUM 8.6 mg/dL (8.5-10.1); CO2 31 mmol/L (21-32); CREATININE 0.6 mg/dL (0.7-1.3); GLUCOSE,RANDOM 100 mg/dL (74-106); MAGNESIUM 2.5 mg/dL (1.8-2.4)
--- NOTE | 2017-01-15 10:38 | PN ---
Progress Note, Physician Chief Complaint: Mr Nash complains of diarrhea today. Still with reproducible chest pain but improved. Says hemoptysis is much better today. No n/v or sob. - Current Medication List Current Medications: Active Medications Acetaminophen (Tylenol -) 650 mg PO Q4H PRN PRN Reason: FEVER OR PAIN Albuterol Sulfate (Ventolin 0.083% Nebulizer Soln -) 1 amp NEB TIDR PRN PRN Reason: SHORT OF BREATH/WHEEZING Diazepam (Valium -) 5 mg GT TID [facility] Last Admin: 01/15/17 05:39 Dose: 5 mg Docusate Sodium (Colace Liquid -) 300 mg PEG HS [facility] Last Admin: 01/14/17 22:19 Dose: Not Given Ceftriaxone Sodium 1 gm/ (Dextrose) 50 mls @ 100 mls/hr IVPB DAILY [facility] Last Admin: 01/14/17 09:26 Dose: 100 mls/hr Metoclopramide HCl (Reglan -) 5 mg PO BID [facility] Last Admin: 01/14/17 22:19 Dose: 5 mg Ondansetron HCl (Zofran Injection) 4 mg IVPB Q6H PRN PRN Reason: NAUSEA Oxybutynin Chloride (Ditropan -) 10 mg PO DAILY [facility] Last Admin: 01/14/17 09:25 Dose: Not Given Polyethylene Glycol (Miralax (For Daily Use) -) 17 gm GT DAILY PRN PRN Reason: CONSTIPATION Last Admin: 01/13/17 10:20 Dose: 17 gm Ranitidine HCl (Zantac -) 150 mg PO BID [facility] Last Admin: 01/14/17 22:24 Dose: 150 mg Senna (Senna -) 2 tab PO DAILY [facility] Last Admin: 01/14/17 09:25 Dose: Not Given Tramadol HCl (Ultram -) 50 mg PEG Q6H PRN PRN Reason: PAIN Last Admin: 01/14/17 12:37 Dose: 50 mg - Objective Vital Signs: Vital Signs Temperature 37.3 C 01/15/17 06:22 Pulse Rate 59 L 01/15/17 06:22 Respiratory Rate 20 01/15/17 06:22 Blood Pressure 104/58 01/15/17 06:22 O2 Sat by Pulse Oximetry (%) 97 01/14/17 22:00 Constitutional: Yes: No Distress, Calm, Thin Cardiovascular: Yes: Regular Rate and Rhythm, Gallop. No: Murmur, Rub Respiratory: Yes: Regular, CTA Bilaterally. No: Rales, Rhonchi, Wheezes Gastrointestinal: Yes: Normal Bowel Sounds, Soft. No: Distention, Tenderness Extremities: Yes: WNL Edema: No Labs: CBC, BMP 01/15/17 06:00 01/15/17 06:00 Problem List - Problems (1) Hemoptysis Code(s): R04.2 - HEMOPTYSIS (2) COPD (chronic obstructive pulmonary disease) Code(s): J44.9 - CHRONIC OBSTRUCTIVE PULMONARY DISEASE, UNSPECIFIED Qualifiers : COPD type: COPD with acute exacerbation Qualified Code(s): J44.1 - Chronic obstructive pulmonary disease with (acute) exacerbation (3) Dysphagia Code(s): R13.10 - DYSPHAGIA, UNSPECIFIED (4) GERD (gastroesophageal reflux disease) Code(s): K21.9 - GASTRO-ESOPHAGEAL REFLUX DISEASE WITHOUT ESOPHAGITIS (5) Severe protein-calorie malnutrition Code(s): E43 - UNSPECIFIED SEVERE PROTEIN-CALORIE MALNUTRITION Assessment/Plan (1) Hemoptysis Assessment/Plan: -improving -continue rocephin -plan to change to oral cephalosporin on discharge Code(s): R04.2 - HEMOPTYSIS (2) COPD (chronic obstructive pulmonary disease) Assessment/Plan: -not in exacerbation -continue home regimen Code(s): J44.9 - CHRONIC OBSTRUCTIVE PULMONARY DISEASE, UNSPECIFIED Qualifiers : COPD type: COPD with acute exacerbation Qualified Code(s): J44.1 - Chronic obstructive pulmonary disease with (acute) exacerbation (3) Dysphagia Assessment/Plan: -PEG tube in place Code(s): R13.10 - DYSPHAGIA, UNSPECIFIED (4) GERD (gastroesophageal reflux disease) Assessment/Plan: -continue ranitidine -appreciate GI assistance, no interventions indicated at this time Code(s): K21.9 - GASTRO-ESOPHAGEAL REFLUX DISEASE WITHOUT ESOPHAGITIS (5) Severe protein-calorie malnutrition Assessment/Plan: -TF adjusted and tolerating Code(s): E43 - UNSPECIFIED SEVERE PROTEIN-CALORIE MALNUTRITION (6) Diarrhea -check for c. 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
[2017-01-15] MEDS ORDERED: DEXTROSE 5%-WATER - 50 ML IVPB ONE (10:45)
[2017-01-15] MEDS ORDERED: cefTRIAXone SODIUM 1 GM VIAL ONE (10:45)
[2017-01-15] MEDS: CEFTRIAXONE 1 GM in DEXTROSE 5%-WATER - 50 ML IVPB SCH (10:57)
[2017-01-15] MEDS: RANITIDINE HCL 150 MG TABLET (FP) PO SCH ×2 (10:58→21:30)
[2017-01-15] MEDS: OXYBUTYNIN CHLORIDE 5 MG TABLET PO SCH (10:58)
[2017-01-15] MEDS: SENNOSIDES 8.6MG TABLET (FP) PO SCH (10:58)
[2017-01-15] MEDS: METOCLOPRAMIDE HCL 10 MG TABLET (FP) PO SCH ×2 (10:58→23:20)
--- NOTE | 2017-01-15 15:32 | PN ---
Progress Note (short form) - Note Progress Note: PULMONARY VSS AFEBRILE HEMOPTYSIS HAS STOPPED ANICTERIC CHEST DISTANT BUT CLEAR S1S2 BS_ NO EDEMA LABS/MEDS/NOTES/IMAGING REVIEWED (1) Hemoptysis Code(s): R04.2 - HEMOPTYSIS (2) Aspiration of blood Code(s): R09.89 - OTH SYMPTOMS AND SIGNS INVOLVING THE CIRC AND RESP SYSTEMS (3) Aspiration of formula Code(s): P24.30 - ASPIRAT OF MILK AND REGURGITATED FOOD W/O RESP SYMP (4) Asthma Code(s): J45.909 - UNSPECIFIED ASTHMA, UNCOMPLICATED (5) COPD (chronic obstructive pulmonary disease) Code(s): J44.9 - CHRONIC OBSTRUCTIVE PULMONARY DISEASE, UNSPECIFIED Qualifiers : COPD type: COPD with acute exacerbation Qualified Code(s): J44.1 - Chronic obstructive pulmonary disease with (acute) exacerbation Assessment/Plan MULTIPLE ADMISSIONS FOR HEMOPTYSIS ETIOLOGY THOUGHT TO BE DUE TO BRONCHIECTASIS WHICH IS EVIDENT ON CHEST CT PATIENT HAD FOB IN PAST WHICH DID NOT SHOW ANY ENDOBRONCHIAL PATHOLOGY WHICH WOULD ACCOUNT FOR FOR HEMOPTYSIS CONTINUE/O2/BRONCHODILATORS/ANTIBIOTICS SHOULD BE READY FOR DISCHARGE TOMORROW Bryan GAYTAN MD Problem List - Problems (1) Hemoptysis Code(s): R04.2 - HEMOPTYSIS (2) Aspiration of blood Code(s): R09.89 - OTH SYMPTOMS AND SIGNS INVOLVING THE CIRC AND RESP SYSTEMS (3) Aspiration of formula Code(s): P24.30 - ASPIRAT OF MILK AND REGURGITATED FOOD W/O RESP SYMP (4) Asthma Code(s): J45.909 - UNSPECIFIED ASTHMA, UNCOMPLICATED (5) COPD (chronic obstructive pulmonary disease) Code(s): J44.9 - CHRONIC OBSTRUCTIVE PULMONARY DISEASE, UNSPECIFIED Qualifiers : COPD type: COPD with acute exacerbation Qualified Code(s): J44.1 - Chronic obstructive pulmonary disease with (acute) exacerbation
[2017-01-15] MEDS ORDERED: PT OWN MED DRAWER 7, Y5N ONE (21:27)
[2017-01-15] MEDS: traMADol HCL 50 MG TABLET PEG PRN (21:31)
[2017-01-15] MEDS: DOCUSATE NA 100 MG/10 ML UNIT-DOSE CUPS PEG SCH (21:40)
[2017-01-16] MEDS: diazePAM 5 MG TABLET GT SCH ×3 (06:44→21:47)
[2017-01-16 07:55] LABS: MCH 32.5 pg (25.7-33.7); MCHC 33.4 g/dl (32.0-35.9); MEAN CELL VOLUME 97.2 fl (80-96); PLATELET COUNT 206 K/MM3 (134-434); RDW 12.5 % (11.9-15.9); WHITE BLOOD COUNT 5.4 K/mm3 (4.0-10.0)
[2017-01-16 08:28] LABS: ANION GAP 5 (8-16); CALCIUM 8.5 mg/dL (8.5-10.1); CO2 36 mmol/L (21-32); CREATININE 0.6 mg/dL (0.7-1.3); GLUCOSE,RANDOM 86 mg/dL (74-106); MAGNESIUM 2.5 mg/dL (1.8-2.4)
[2017-01-16] MEDS: SODIUM SALICYLATE GT SCH (10:02)
[2017-01-16] MEDS: [UNRECOGNIZED DRUG - OTHER] GT SCH (10:02)
[2017-01-16] MEDS: METHENAMINE GT SCH (10:02)
--- NOTE | 2017-01-16 10:13 | PN ---
Progress Note (short form) - Note Progress Note: PULMONARY VSS AFEBRILE NO FURTHER HEMOPTYSIS ANICTERIC CHEST DISTANT BUT CLEAR S1S2 BS_ NO EDEMA LABS/MEDS/NOTES/IMAGING REVIEWED (1) Hemoptysis Code(s): R04.2 - HEMOPTYSIS (2) Aspiration of blood Code(s): R09.89 - OTH SYMPTOMS AND SIGNS INVOLVING THE CIRC AND RESP SYSTEMS (3) Aspiration of formula Code(s): P24.30 - ASPIRAT OF MILK AND REGURGITATED FOOD W/O RESP SYMP (4) Asthma Code(s): J45.909 - UNSPECIFIED ASTHMA, UNCOMPLICATED (5) COPD (chronic obstructive pulmonary disease) Code(s): J44.9 - CHRONIC OBSTRUCTIVE PULMONARY DISEASE, UNSPECIFIED Qualifiers : COPD type: COPD with acute exacerbation Qualified Code(s): J44.1 - Chronic obstructive pulmonary disease with (acute) exacerbation Assessment/Plan MULTIPLE ADMISSIONS FOR HEMOPTYSIS ETIOLOGY THOUGHT TO BE DUE TO BRONCHIECTASIS WHICH IS EVIDENT ON CHEST CT PATIENT HAD FOB IN PAST WHICH DID NOT SHOW ANY ENDOBRONCHIAL PATHOLOGY WHICH WOULD ACCOUNT FOR FOR HEMOPTYSIS CONTINUE/O2/BRONCHODILATORS/ANTIBIOTICS FOR 4 DAYS IN SNF READY FOR DISCHARGE TOMORROW Bryan GAYTAN MD Problem List - Problems (1) Hemoptysis Code(s): R04.2 - HEMOPTYSIS (2) Aspiration of blood Code(s): R09.89 - OTH SYMPTOMS AND SIGNS INVOLVING THE CIRC AND RESP SYSTEMS (3) Aspiration of formula Code(s): P24.30 - ASPIRAT OF MILK AND REGURGITATED FOOD W/O RESP SYMP (4) Asthma Code(s): J45.909 - UNSPECIFIED ASTHMA, UNCOMPLICATED (5) COPD (chronic obstructive pulmonary disease) Code(s): J44.9 - CHRONIC OBSTRUCTIVE PULMONARY DISEASE, UNSPECIFIED Qualifiers : COPD type: COPD with acute exacerbation Qualified Code(s): J44.1 - Chronic obstructive pulmonary disease with (acute) exacerbation
[2017-01-16] MEDS ORDERED: DEXTROSE 5%-WATER - 50 ML IVPB ONE (10:50)
[2017-01-16] MEDS ORDERED: cefTRIAXone SODIUM 1 GM VIAL ONE (10:50)
[2017-01-16] MEDS: OXYBUTYNIN CHLORIDE 5 MG TABLET PO SCH (10:53)
[2017-01-16] MEDS: SENNOSIDES 8.6MG TABLET (FP) PO SCH (10:53)
[2017-01-16] MEDS: CEFTRIAXONE 1 GM in DEXTROSE 5%-WATER - 50 ML IVPB SCH (10:59)
[2017-01-16] MEDS: METOCLOPRAMIDE HCL 10 MG TABLET (FP) PO SCH ×2 (10:59→21:46)
[2017-01-16] MEDS: RANITIDINE HCL 150 MG TABLET (FP) PO SCH ×2 (11:00→21:47)
[2017-01-16] MEDS: traMADol HCL 50 MG TABLET PEG PRN (11:46)
--- NOTE | 2017-01-16 13:37 | PN ---
Progress Note, Physician Chief Complaint: Mr Nash is without complaint. No cp, sob, n/v. - Current Medication List Current Medications: Active Medications Acetaminophen (Tylenol -) 650 mg PO Q4H PRN PRN Reason: FEVER OR PAIN Albuterol Sulfate (Ventolin 0.083% Nebulizer Soln -) 1 amp NEB TIDR PRN PRN Reason: SHORT OF BREATH/WHEEZING Diazepam (Valium -) 5 mg GT TID [facility] Last Admin: 01/16/17 06:44 Dose: 5 mg Docusate Sodium (Colace Liquid -) 300 mg PEG HS [facility] Last Admin: 01/15/17 21:40 Dose: Not Given Ceftriaxone Sodium 1 gm/ (Dextrose) 50 mls @ 100 mls/hr IVPB DAILY [facility] Last Admin: 01/16/17 10:59 Dose: 100 mls/hr Metoclopramide HCl (Reglan -) 5 mg PO BID [facility] Last Admin: 01/16/17 10:59 Dose: 5 mg Ondansetron HCl (Zofran Injection) 4 mg IVPB Q6H PRN PRN Reason: NAUSEA Oxybutynin Chloride (Ditropan -) 10 mg PO DAILY [facility] Last Admin: 01/16/17 10:53 Dose: Not Given Polyethylene Glycol (Miralax (For Daily Use) -) 17 gm GT DAILY PRN PRN Reason: CONSTIPATION Last Admin: 01/13/17 10:20 Dose: 17 gm Ranitidine HCl (Zantac -) 150 mg PO BID [facility] Last Admin: 01/16/17 11:00 Dose: 150 mg Senna (Senna -) 2 tab PO DAILY [facility] Last Admin: 01/16/17 10:53 Dose: Not Given Tramadol HCl (Ultram -) 50 mg PEG Q6H PRN PRN Reason: PAIN Last Admin: 01/16/17 11:46 Dose: 50 mg - Objective Vital Signs: Vital Signs Temperature 36.9 C 01/16/17 08:00 Pulse Rate 53 L 01/16/17 08:00 Respiratory Rate 20 01/16/17 08:00 Blood Pressure 119/72 01/16/17 08:00 O2 Sat by Pulse Oximetry (%) 96 01/16/17 09:00 Constitutional: Yes: No Distress, Calm, Thin Cardiovascular: Yes: Regular Rate and Rhythm. No: Gallop, Murmur, Rub Respiratory: Yes: Regular, CTA Bilaterally. No: Rales, Rhonchi, Wheezes Gastrointestinal: Yes: Normal Bowel Sounds, Soft. No: Distention, Tenderness Extremities: Yes: WNL Edema: No Labs: CBC, BMP 01/16/17 07:40 01/16/17 07:40 Problem List - Problems (1) Hemoptysis Code(s): R04.2 - HEMOPTYSIS (2) COPD (chronic obstructive pulmonary disease) Code(s): J44.9 - CHRONIC OBSTRUCTIVE PULMONARY DISEASE, UNSPECIFIED Qualifiers : COPD type: COPD with acute exacerbation Qualified Code(s): J44.1 - Chronic obstructive pulmonary disease with (acute) exacerbation (3) Dysphagia Code(s): R13.10 - DYSPHAGIA, UNSPECIFIED (4) GERD (gastroesophageal reflux disease) Code(s): K21.9 - GASTRO-ESOPHAGEAL REFLUX DISEASE WITHOUT ESOPHAGITIS (5) Severe protein-calorie malnutrition Code(s): E43 - UNSPECIFIED SEVERE PROTEIN-CALORIE MALNUTRITION Assessment/Plan (1) Hemoptysis Assessment/Plan: -resolved -continue rocephin -plan to change to oral cephalosporin on discharge -appreciate pulmonary assistance Code(s): R04.2 - HEMOPTYSIS (2) COPD (chronic obstructive pulmonary disease) Assessment/Plan: -not in exacerbation -continue home regimen Code(s): J44.9 - CHRONIC OBSTRUCTIVE PULMONARY DISEASE, UNSPECIFIED Qualifiers : COPD type: COPD with acute exacerbation Qualified Code(s): J44.1 - Chronic obstructive pulmonary disease with (acute) exacerbation (3) Dysphagia Assessment/Plan: -PEG tube in place Code(s): R13.10 - DYSPHAGIA, UNSPECIFIED (4) GERD (gastroesophageal reflux disease) Assessment/Plan: -continue ranitidine -appreciate GI assistance, no interventions indicated at this time Code(s): K21.9 - GASTRO-ESOPHAGEAL REFLUX DISEASE WITHOUT ESOPHAGITIS (5) Severe protein-calorie malnutrition Assessment/Plan: -TF adjusted and tolerating Code(s): E43 - UNSPECIFIED SEVERE PROTEIN-CALORIE MALNUTRITION (6) Diarrhea -resolved before could send sample Dispo -plan for discharge tomorrow
[2017-01-16] MEDS: DOCUSATE NA 100 MG/10 ML UNIT-DOSE CUPS PEG SCH (21:48)
[2017-01-17] MEDS: diazePAM 5 MG TABLET GT SCH (06:22)
[2017-01-17] MEDS ORDERED: cefTRIAXone SODIUM 1 GM VIAL ONE (10:20)
[2017-01-17] MEDS ORDERED: DEXTROSE 5%-WATER - 50 ML IVPB ONE (10:20)
[2017-01-17] MEDS: SENNOSIDES 8.6MG TABLET (FP) PO SCH (10:26)
[2017-01-17] MEDS: RANITIDINE HCL 150 MG TABLET (FP) PO SCH (10:26)
[2017-01-17] MEDS: OXYBUTYNIN CHLORIDE 5 MG TABLET PO SCH (10:26)
[2017-01-17] MEDS: CEFTRIAXONE 1 GM in DEXTROSE 5%-WATER - 50 ML IVPB SCH (10:26)
[2017-01-17] MEDS: METOCLOPRAMIDE HCL 10 MG TABLET (FP) PO SCH (10:26)
[2017-01-17 10:41] VITALS: BP 122/82; PULSE 75; TEMP 99.4
--- NOTE | 2017-01-17 10:48 | DS ---
Physical Examination Vital Signs: Vital Signs Temperature 37.4 C 01/17/17 10:00 Pulse Rate 75 01/17/17 10:00 Respiratory Rate 20 01/17/17 10:00 Blood Pressure 122/82 01/17/17 10:00 O2 Sat by Pulse Oximetry (%) 97 01/16/17 21:00 Constitutional: Yes: No Distress, Calm, Thin Cardiovascular: Yes: Regular Rate and Rhythm. No: Gallop, Murmur, Rub Respiratory: Yes: Regular, CTA Bilaterally. No: Rales, Rhonchi, Wheezes Gastrointestinal: Yes: Normal Bowel Sounds, Soft. No: Distention, Tenderness Extremities: Yes: WNL Edema: No Labs: CBC, BMP 01/16/17 07:40 01/16/17 07:40 Discharge Summary Reason For Visit: HEMOPTYSIS Current Active Problems Hemoptysis (Acute) Severe protein-calorie malnutrition (Acute) Hospital Course: (1) Hemoptysis Code(s): R04.2 - HEMOPTYSIS (2) COPD (chronic obstructive pulmonary disease) Code(s): J44.9 - CHRONIC OBSTRUCTIVE PULMONARY DISEASE, UNSPECIFIED Qualifiers : COPD type: COPD with acute exacerbation Qualified Code(s): J44.1 - Chronic obstructive pulmonary disease with (acute) exacerbation (3) Dysphagia Code(s): R13.10 - DYSPHAGIA, UNSPECIFIED (4) GERD (gastroesophageal reflux disease) Code(s): K21.9 - GASTRO-ESOPHAGEAL REFLUX DISEASE WITHOUT ESOPHAGITIS (5) Severe protein-calorie malnutrition Code(s): E43 - UNSPECIFIED SEVERE PROTEIN-CALORIE MALNUTRITION Mr Nash is a pleasant 61 year old male who comes in with hemoptysis secondary to bronchiectasis. He was admitted to the hospital and seen by pulmonary. He was started on rocephin for inflammation. The hemoptysis improved but he is still having some episodes. This is a chronic problem and will continue. He is currently improved and is safe for discharge back to SNF. He is to continue on antibiotics for 4 more days at the SNF. 37 minutes spent in preparation of this discharge Condition: Stable - Instructions Diet, Activity, Other Instructions: resume previous diet and activity. Referrals: Abad Tanner MD [Primary Care Provider] - Jorge A Garcia MD [Staff Physician] - Disposition: [facility] - Home Medications Comprehensive Discharge Medication List: Ambulatory Orders Diazepam [Valium] 5 mg GT TID 04/23/14 Albuterol Sulfate [Proair Hfa -] 1 - 2 inh PO QID PRN 04/12/15 Methenamine/Sodium Salicylate [Cystex Plus Tablet] 1 each GT DAILY 04/12/15 Heparin - 5,000 unit SQ BID vial 04/25/16 Albuterol 0.083% Nebulizer Jojo [Ventolin 0.083% Nebulizer Soln -] 1 amp NEB TID PRN 08/05/16 Docusate Sodium [Colace -] 300 mg GT HS 08/05/16 Metoclopramide HCl 5 mg GT BID 08/05/16 Polyethylene Glycol 3350 [Miralax 119 gm Btl -] 17 gm GT DAILY PRN 08/05/16 Ranitidine [Zantac -] 150 mg GT BID 08/05/16 Tramadol HCl 50 mg GT Q6H PRN 08/05/16 Bisacodyl [Biscolax] 10 mg RC PRN 09/21/16 Acetaminophen [Tylenol] 650 mg PO Q4HWA PRN 01/10/17 Bacitracin 500 units TP HS 01/10/17 Oxybutynin Chloride [Ditropan Xl] 10 mg PO DAILY 01/10/17 Sennosides [Senna] 2 tab PO DAILY 01/10/17 Cephalexin [Keflex *Suspension*] 5 ml PEG QID 4 Days 01/17/17
== END 2017-01-17 12:36 | DRG 190 ==
LOC: JER 10:57 → JERBED 14:01 → J8W 16:45
PROVIDERS: ADMIT Internal Medicine; ATTEND Internal Medicine
DX: J47.9 Bronchiectasis, uncomplicated (principal); E43 Unspecified severe protein-calorie malnutrition; Z68.1 Body mass index [BMI] 19.9 or less, adult; J44.9 Chronic obstructive pulmonary disease, unspecified; R13.10 Dysphagia, unspecified; Z93.1 Gastrostomy status; N31.9 Neuromuscular dysfunction of bladder, unspecified; K21.9 Gastro-esophageal reflux disease without esophagitis; F41.9 Anxiety disorder, unspecified; G24.1 Genetic torsion dystonia; M62.59 Muscle wasting and atrophy, not elsewhere classified, multiple sites; R19.7 Diarrhea, unspecified
CPT/HCPCS: 36415; 71010-TC; 80048; 80053; 83735; 84100; 85025; 85027; 87040; 97116-GP; 97161-GP; 99283-25

== ENCOUNTER 2017-03-28 21:08 | Inpatient (IN) | payer OTHER, BC ==
--- NOTE | 2017-03-28 21:51 | PDOC ---
Attending Attestation - Resident Resident Name: Faisal Miller - ED Attending Attestation I have performed the following: I have examined & evaluated the patient, The case was reviewed & discussed with the resident, I agree w/resident's findings & plan, Exceptions are as noted - HPI HPI: 61 yo M history muscular dystonia, cervical fusion, neurogenic bladder presents with 4 day history of hemoptysis, dizziness, and intermittent sharp, moderate abdominal pain. He states he has had the epigastric pain in the past, typically takes tramadol for pain. He has had history of hemoptysis, attributed to bronchiectasis in the past, successfully treated with courses of antibiotics. He notes that the hemoptysis is worse with feedings. - Physicial Exam PE: GENERAL: Awake, alert, and fully oriented, in no acute distress HEAD: No signs of trauma EYES: PERRLA, EOMI, sclera anicteric, conjunctiva clear ENT: Auricles normal inspection, hearing grossly normal, nares patent, oropharynx clear without exudates. Moist mucosa NECK: Normal ROM, supple, no lymphadenopathy, JVD, or masses LUNGS: Breath sounds equal, clear to auscultation bilaterally. No wheezes, and no crackles HEART: Regular rate and rhythm, normal S1 and S2, no murmurs, rubs or gallops ABDOMEN: Soft, nontender, normoactive bowel sounds. No guarding, no rebound. No masses. PEG to LUQ, insertion site clean/dry/nonerythematous. EXTREMITIES: Normal range of motion, no edema. No clubbing or cyanosis. No cords, erythema, or tenderness NEUROLOGICAL: Cranial nerves II through XII grossly intact. Moving all extremities. Slurred speech (chronic). SKIN: Warm, Dry, normal turgor, no rashes or lesions noted. - Medical Decision Making Pt known to pulmonary service, they are requesting admission. Will start him on abx in ED based on prior treatment.
--- NOTE | 2017-03-28 22:04 | PDOC ---
History of Present Illness - General Chief Complaint: Hemoptysis Stated Complaint: COUGHING UP BLOOD Time Seen by Provider: 03/28/17 21:50 History Source: Patient - History of Present Illness Initial Comments: 03/28/17 22:01 Patient is a 61 yo M with a PMHx of muscular dystonia (since ), cervical fusion s/p fracture, neurogenic bladder w/ suprapubic catheter, presented today because of a 4 day onset of hemoptysis, dizziness and 6/10, sharp, intermittent, epigastric abdominal pain. He says breathing aggravates the abdominal pain. Patient also says the hemoptysis is worse when they feed him through his PEG tube and has minimal bleeding when he doesnt eat. He describes the blood as bright red. He also says he has been feeling warm the last few days. He says he was here in December for the same problem. He denies blood in stool, nausea, vomiting, fever, SOB, LOC, headache, and chest pain. Past History - Past Medical History Allergies/Adverse Reactions: Allergies Allergy/AdvReac Type Severity Reaction Status Date / Time iodine Allergy Severe Low Blood Verified 03/28/17 22:54 Pressure kiwi Allergy Intermediate Swelling Verified 03/28/17 22:54 latex Allergy Unknown Swelling Verified 03/28/17 22:54 shellfish derived Allergy Unknown Verified 03/28/17 22:54 ampicillin sodium Allergy Rash Verified 03/28/17 22:54 [From Unasyn] Fish Containing Products Allergy Difficulty Verified 03/28/17 22:54 Breathing Penicillins Allergy Rash Verified 03/28/17 22:54 sulbactam sodium Allergy Rash Verified 03/28/17 22:54 [From Unasyn] Sulfa (Sulfonamide Allergy Hives Verified 03/28/17 22:54 Antibiotics) [Sulfa(Sulfonamide Antibiotics)] Home Medications: Ambulatory Orders Acetaminophen [Tylenol] 325 mg PO QID 03/28/17 Albuterol Sulfate [Ventolin -] 2.5 mg PO TID 03/28/17 Docusate Sodium [Colace -] 300 mg PO TID 03/28/17 Metoclopramide Oral Soln [Reglan Oral Solution -] 5 mg GT BID 03/28/17 Oxybutynin Chloride 10 mg PO DAILY 03/28/17 Polyethylene Glycol 3350 [Laxaclear] 1,700 gm PO DAILY 03/28/17 Sennosides [Senna] 8.6 mg PO BID 03/28/17 Tramadol HCl 50 mg PO QID 03/28/17 Asthma: Yes COPD: Yes GI Disorders: Yes (GERD) Disorders: Yes (NEUROGENIC BLADDER) HTN: Yes Psychiatric Problems: Yes (Anxiety,) - Surgical History GI Surgery: Yes (supra pubic sx) Neurologic Surgery: Yes (cervical fusion, dystonia) Orthopedic Surgery: Yes - Immunization History Immunization Up to Date: Yes - Suicide/Smoking/Psychosocial Hx Smoking History: Never smoked Have you smoked in the past 12 months: No Number of Cigarettes Smoked Daily: 0 Cigars Per Day: 0 Information on smoking cessation initiated: No Hx Alcohol Use: No Drug/Substance Use Hx: No Substance Use Type: None Hx Substance Use Treatment: No Review of Systems - Review of Systems Able to Perform ROS?: Yes Constitutional: Yes: Weakness. No: Chills, Fever, Night Sweats HEENTM: Yes: Throat Pain Respiratory: Yes: Cough, Hemoptysis. No: Shortness of Breath Cardiac (ROS): No: Chest Pain, Edema ABD/GI: No: Diarrhea, Nausea, Rectal Bleeding, Vomiting : No: Burning, Dysuria Neurological: No: Headache *Physical Exam - Vital Signs Last Vital Signs Temp Pulse Resp BP Pulse Ox 98.4 F 55 L 18 97/73 96 03/28/17 21:44 03/28/17 21:44 03/28/17 21:44 03/28/17 21:44 03/28/17 21:44 - Physical Exam Comments: 03/28/17 22:28 General: Patient in no acute distress, spitting bright red blood in a bag. Stuttered speech HEENT: oropharyanx clear without exudates CV: RRR, no Murmurs appreciated Lungs: CTA B/L, no rales or rhonci Abd: Scaphoid abdomen, Nontender, Non-distended, PEG in place, no erythema or induration peripeg. Suprapubic catheter placed. Ext: no peripheral edema ED Treatment Course - LABORATORY CBC & Chemistry Diagram: 03/28/17 22:10 03/28/17 22:10 - RADIOLOGY Radiology Studies Ordered: Category Date Time Status CHEST X-RAY PORTABLE* [RAD] Stat Radiology 03/28/17 21:55 Ordered Medical Decision Making - Medical Decision Making 03/28/17 22:40 Patient is a 61 yo M with a PMHx of muscular dystonia, cervical fusion s/p fracture, neurogenic bladder w/ suprapubic catheter, presented today because of a 4 day onset of hemoptysis, dizziness and 6/10, sharp, intermittent,epigastric abdominal pain. -CXR -CBC, CMP -Tramadol 50mg for pain control 03/28/17 23:40 Discussed case with Pulm (Dr. Garcia). Wants patient admitted. *DC/Admit/Observation/Transfer Diagnosis at time of Disposition: Hemoptysis - Discharge Dispostion Admit: Yes - Referrals - Patient Instructions - Post Discharge Activity
[2017-03-28] MEDS ORDERED: traMADol HCL 50 MG TABLET PO ONE (22:11)
[2017-03-28] MEDS ORDERED: traMADol HCL 50 MG TABLET ONE (22:17)
[2017-03-28 22:22] LABS: BASOPHIL 0.5 % (0-2.0); EOSINOPHIL 3.9 % (0-4.5); MCH 32.4 pg (25.7-33.7); MCHC 34.2 g/dl (32.0-35.9); MEAN CELL VOLUME 94.8 fl (80-96); MEAN PLT VOLUME 9.1 fl (7.5-11.1); NEUTROPHILS 63.3 % (42.8-82.8); PLATELET COUNT 210 K/MM3 (134-434); RDW 12.7 % (11.9-15.9); WHITE BLOOD COUNT 7.9 K/mm3 (4.0-10.0)
[2017-03-28 22:45] LABS: ALBUMIN 3.6 g/dl (3.4-5.0); ANION GAP 6 (8-16); BILIRUBIN,TOTAL 0.6 mg/dL (0.2-1.0); CALCIUM 8.5 mg/dL (8.5-10.1); CO2 30 mmol/L (21-32); CREATININE 0.6 mg/dL (0.7-1.3); GLUCOSE,RANDOM 77 mg/dL (74-106); SGOT/AST 22 U/L (15-37); SGPT/ALT 33 U/L (12-78); TOT PROT 6.7 g/dl (6.4-8.2)
[2017-03-28 22:46] LABS: ALK PHOS 106 U/L (45-117)
--- NOTE | 2017-03-29 01:01 | HP ---
CHIEF COMPLAINT: " i cough up blood" PCP Dr Dos Santos HISTORY OF PRESENT ILLNESS: This is a 61 yo M with PMH of chronic hemoptysis possibly due to bronchiectasis , cervical fusion s/p fracture, dystonia s/p cervical fracture, neurogenic bladder with suprapubic catheter, asthma, COPD (not on home O2), GERD, HTN, and carpal tunnel, who presents with worsening hemoptysis x 3. Symptoms are aggravated by PEG tube feeds, as usual. Patient also reports epigastric abdominal pain exacerbated by inspiration and feeds, and mild dizziness, which he has experienced before. He denies recent fever or chills. He also denies cp, palpitations, sob, calf pain or swelling and states that this episode is exactly the same as previous ones. Past workup included Gi evaluation/endoscopy , ruling out GI causes and a bronchoscopy that did not yield conclsive evidence of bronchial lesions. He was recently hospitalized for hemoptysis 01/10-01/17. At that time, repeat bronch was deferred because patient improved on Rocephin, O2, and bronchodilators. IN ED patient is afebrile, hemodynamically stable, good O2 sats, stable h/h but actively having hemoptysis. ER course was notable for: (1)labs (2)ekg, cxr (3)rocephin Recent Travel: denies PAST MEDICAL HISTORY: as above PAST SURGICAL HISTORY: as above Social History: [place] resident Smoking: never Alcohol: denies Drugs: denies Family History: Allergies iodine Allergy (Severe, Verified 03/28/17 22:54) Low Blood Pressure kiwi Allergy (Intermediate, Verified 03/28/17 22:54) Swelling latex Allergy (Unknown, Verified 03/28/17 22:54) Swelling swelling in throat and face as reported by pt shellfish derived Allergy (Unknown, Verified 03/28/17 22:54) ampicillin sodium [From Unasyn] Allergy (Verified 03/28/17 22:54) Rash Fish Containing Products Allergy (Verified 03/28/17 22:54) Difficulty Breathing Penicillins Allergy (Verified 03/28/17 22:54) Rash sulbactam sodium [From Unasyn] Allergy (Verified 03/28/17 22:54) Rash Sulfa (Sulfonamide Antibiotics) [Sulfa(Sulfonamide Antibiotics)] Allergy ( Verified 03/28/17 22:54) Hives HOME MEDICATIONS: Home Medications Medication Instructions Recorded Acetaminophen [Tylenol] 325 mg PO QID 03/28/17 Albuterol Sulfate [Ventolin -] 2.5 mg PO TID 03/28/17 Docusate Sodium [Colace -] 300 mg PO TID 03/28/17 Metoclopramide Oral Soln [Reglan 5 mg GT BID 03/28/17 Oral Solution -] Oxybutynin Chloride 10 mg PO DAILY 03/28/17 Polyethylene Glycol 3350 1,700 gm PO DAILY 03/28/17 [Laxaclear] Sennosides [Senna] 8.6 mg PO BID 03/28/17 Tramadol HCl 50 mg PO QID 03/28/17 REVIEW OF SYSTEMS CONSTITUTIONAL: Absent: fever, chills, malaise HEENT: Absent: visual changes CARDIOVASCULAR: Absent: chest pain, syncope, palpitations, irregular heart rate, lightheadedness , peripheral edema RESPIRATORY: Absent: shortness of breath, dyspnea with exertion, orthopnea, wheezing GASTROINTESTINAL: Absent: abdominal distension, nausea, vomiting, diarrhea, melena, hematochezia GENITOURINARY: Absent: flank pain, genital pain MUSCULOSKELETAL: Absent: back pain, neck pain SKIN: Absent: rash, itching, pallor HEMATOLOGIC/IMMUNOLOGIC: Absent: easy bleeding, easy bruising, frequent infections ENDOCRINE: Absent: unexplained weight gain, unexplained weight loss NEUROLOGIC: Absent: headache, mental status changes PSYCHIATRIC: Absent: anxiety, depression PHYSICAL EXAMINATION Vital Signs - 24 hr 03/28/17 03/28/17 21:44 22:27 Temperature 98.4 F Pulse Rate 55 L Respiratory 18 Rate Blood Pressure 97/73 O2 Sat by Pulse 96 96 Oximetry (%) GENERAL: Awake, alert, and fully oriented, in no acute distress. HEAD: Normal with no signs of trauma. EYES: Pupils equal, round and reactive to light, extraocular movements intact, sclera anicteric, conjunctiva clear. No lid lag. EARS, NOSE, THROAT: Moist mucous membranes. NECK: supple LUNGS: Breath sounds equal, clear to auscultation bilaterally. HEART: Regular rate and rhythm, normal S1 and S2 ABDOMEN: Soft, slightly tender epigastric, not distended, normoactive bowel sounds, no guarding MUSCULOSKELETAL: No CVA tenderness. UPPER EXTREMITIES: 2+ pulses, warm, well-perfused. No peripheral edema. LOWER EXTREMITIES: 1 pulses, warm, well-perfused. No calf tenderness. No peripheral edema. NEUROLOGICAL: Cranial nerves II-XII appear grossly intact. dysarthria PSYCHIATRIC: Cooperative. Good eye contact. Appropriate mood and affect. SKIN: Warm, dry Laboratory Results - last 24 hr 03/28/17 03/28/17 03/28/17 22:10 22:10 22:10 WBC 7.9 D RBC 4.09 Hgb 13.3 Hct 38.8 MCV 94.8 MCH 32.4 MCHC 34.2 RDW 12.7 Plt Count 210 MPV 9.1 Neutrophils % 63.3 Lymphocytes % 17.4 D Monocytes % 14.9 H Eosinophils % 3.9 Basophils % 0.5 Sodium 138 Potassium 4.1 Chloride 102 Carbon Dioxide 30 Anion Gap 6 L BUN 22 H Creatinine 0.6 L Creat Clearance w eGFR > 60 Random Glucose 77 Calcium 8.5 Total Bilirubin 0.6 AST 22 D ALT 33 Alkaline Phosphatase 106 Total Protein 6.7 Albumin 3.6 Blood Type A POSITIVE Antibody Screen Negative ASSESSMENT/PLAN: This is a 61 yo M with PMH of chronic hemoptysis possibly due to bronchiectasis , cervical fusion s/p fracture, dystonia s/p cervical fracture, neurogenic bladder with suprapubic catheter, asthma, COPD (not on home O2), GERD, HTN, and carpal tunnel, who presents with worsening hemoptysis x 3. Recurrence of hemoptysis -likley due to bronchiectaisis -per pulm recommendation, admit and treat with rocephin -further recommendations per Dr larson -bronchodilators -supplemental O2 prn -chest PT Chronic epigastric abdominal pain aggravated by feeds -possibly GERD -PPI daily -ultram prn pain Dispo: adm med emy Problem List - Problem (1) Hemoptysis Code(s): R04.2 - HEMOPTYSIS (2) Asthma Code(s): J45.909 - UNSPECIFIED ASTHMA, UNCOMPLICATED (3) COPD (chronic obstructive pulmonary disease) Code(s): J44.9 - CHRONIC OBSTRUCTIVE PULMONARY DISEASE, UNSPECIFIED Qualifiers: COPD type: COPD with acute exacerbation Qualified Code(s): J44.1 - Chronic obstructive pulmonary disease with (acute) exacerbation (4) Cough with hemoptysis Code(s): R04.2 - HEMOPTYSIS (5) Dizziness Code(s): R42 - DIZZINESS AND GIDDINESS (6) Dysphagia Code(s): R13.10 - DYSPHAGIA, UNSPECIFIED (7) Dystonia Code(s): G24.9 - DYSTONIA, UNSPECIFIED (8) GERD (gastroesophageal reflux disease) Code(s): K21.9 - GASTRO-ESOPHAGEAL REFLUX DISEASE WITHOUT ESOPHAGITIS (9) HTN (hypertension) Code(s): I10 - ESSENTIAL (PRIMARY) HYPERTENSION Qualifiers: (10) Weight loss Code(s): R63.4 - ABNORMAL WEIGHT LOSS Visit type - Emergency Visit Emergency Visit: Yes ED Registration Date: 03/28/17 Care time: The patient presented to the Emergency Department on the above date and was hospitalized for further evaluation of their emergent condition. - New Patient This patient is new to me today: Yes Date on this admission: 03/29/17 - Critical Care Critical Care patient: No
[2017-03-29] MEDS ORDERED: CEFTRIAXONE 1 GM in DEXTROSE 5%-WATER - 50 ML IVPB ONE (01:13)
[2017-03-29] MEDS ORDERED: traMADol HCL 50 MG TABLET ONE (01:44)
[2017-03-29] MEDS: traMADol HCL 50 MG TABLET PO PRN ×2 (01:50→12:28)
[2017-03-29] MEDS ORDERED: PANTOPRAZOLE SODIUM 40 MG/100 ML BAG IVPB ONE (02:10)
[2017-03-29] MEDS: PANTOPRAZOLE SODIUM 40 MG VIAL IVPUSH SCH ×2 (02:14→10:05)
--- NOTE | 2017-03-29 02:53 | HP ---
CHIEF COMPLAINT: hemoptysis PCP: Levon HISTORY OF PRESENT ILLNESS: 61 yo M with pmhx of hemoptysis believed to be 2/2 to bronchiectasis, cervical fusion s/p fracture, dystonia s/p cervical fracture, neurogenic bladder with suprapubic catheter, asthma, COPD (not on home O2), GERD, HTN, and carpal tunnel who presents with hemoptysis for the past 3 days. Patient has a PEG tube placed and states he was being fed via the PEG tube when he started coughing up blood. Patient states that he is usually lying supine at about 30 degrees while he is fed. Patient reports that hes had an intermittent dry cough recently but now he is noticing blood in his cough for the past 3 days. Patient reports that in the past three days he coughed up a total of 1 cup of blood with clots. Patient also reports wheezing, dizziness, dysphagia, and stuffy nose. Patient also reports LUQ and epigastric pain that is sharp and burning in quality and 7/ 10 in severity. He states he gets the pain when he is fed through the PEG tube. Patient also reports surapubic pain near the site of the catheter for his neurogenic bladder. Patient denies fever, chills, chest pain, SOB, or weakness. He states he wanted to come to the ED earlier but the staff at the rehab facility suggested he wait. Pt was most recently hospitalized for hemoptysis from 01/10 to 01/17. He was seen by pulmonology who gave him rocephin, O2, and bronchodilators. Pt had fiberoptic bronchoscopy in past (pt says 3 years ago), but it did not show endobronchial pathology to account for bronchiectasis. ER course was notable for: (1) hemoptysis (2) normal hemoglobin Recent Travel: none PAST MEDICAL HISTORY: dystonia (diagnosed at 29) neck fracture neurogenic bladder w/ suprapubic catheter asthma/COPD anxiety, depression constipation, GERD BPH PNA sleep apnea dysphagia w/ peg tube PAST SURGICAL HISTORY: laminectomy/cervical fusion suprapubic catheter G-tube Social History: Smoking: none Alcohol: none Drugs: none Family History: Allergies iodine Allergy (Severe, Verified 03/28/17 22:54) Low Blood Pressure kiwi Allergy (Intermediate, Verified 03/28/17 22:54) Swelling latex Allergy (Unknown, Verified 03/28/17 22:54) Swelling swelling in throat and face as reported by pt shellfish derived Allergy (Unknown, Verified 03/28/17 22:54) ampicillin sodium [From Unasyn] Allergy (Verified 03/28/17 22:54) Rash Fish Containing Products Allergy (Verified 03/28/17 22:54) Difficulty Breathing Penicillins Allergy (Verified 03/28/17 22:54) Rash sulbactam sodium [From Unasyn] Allergy (Verified 03/28/17 22:54) Rash Sulfa (Sulfonamide Antibiotics) [Sulfa(Sulfonamide Antibiotics)] Allergy ( Verified 03/28/17 22:54) Hives HOME MEDICATIONS: Home Medications Medication Instructions Recorded Acetaminophen [Tylenol] 325 mg PO QID 03/28/17 Albuterol Sulfate [Ventolin -] 2.5 mg PO TID 03/28/17 Docusate Sodium [Colace -] 300 mg PO TID 03/28/17 Metoclopramide Oral Soln [Reglan 5 mg GT BID 03/28/17 Oral Solution -] Oxybutynin Chloride 10 mg PO DAILY 03/28/17 Polyethylene Glycol 3350 1,700 gm PO DAILY 03/28/17 [Laxaclear] Sennosides [Senna] 8.6 mg PO BID 03/28/17 Tramadol HCl 50 mg PO QID 03/28/17 REVIEW OF SYSTEMS CONSTITUTIONAL: Absent: fever, chills, diaphoresis, generalized weakness, malaise, loss of appetite, weight change HEENT: Absent: rhinorrhea, nasal congestion, throat pain, throat swelling, difficulty swallowing, mouth swelling, ear pain, eye pain, visual changes CARDIOVASCULAR: Absent: chest pain, syncope, palpitations, irregular heart rate, lightheadedness , peripheral edema RESPIRATORY: Absent: shortness of breath, dyspnea with exertion, orthopnea, wheezing, stridor Present: hemoptysis, cough GASTROINTESTINAL: Absent: abdominal distension, nausea, vomiting, diarrhea, constipation, melena, hematochezia present: epigastric abdominal pain GENITOURINARY: Absent: dysuria, frequency, urgency, hesitancy, hematuria, flank pain, genital pain MUSCULOSKELETAL: Absent: myalgia, arthralgia, joint swelling, back pain, neck pain Present: carpal tunnel pain SKIN: Absent: rash, itching, pallor HEMATOLOGIC/IMMUNOLOGIC: Absent: easy bleeding, easy bruising, lymphadenopathy, frequent infections ENDOCRINE: Absent: unexplained weight gain, unexplained weight loss, heat intolerance, cold intolerance NEUROLOGIC: Absent: headache, focal weakness or paresthesias, unsteady gait, seizure, mental status changes, bladder or bowel incontinence Present: dizziness, dystonia PSYCHIATRIC: Absent: anxiety, depression, suicidal or homicidal ideation, hallucinations. PHYSICAL EXAMINATION Vital Signs - 24 hr 03/28/17 03/28/17 21:44 22:27 Temperature 98.4 F Pulse Rate 55 L Respiratory 18 Rate Blood Pressure 97/73 O2 Sat by Pulse 96 96 Oximetry (%) GENERAL: elderly pleasant male, lying in bed, awake, alert, and fully oriented, in no acute distress. HEAD: Normal with no signs of trauma. EYES: Pupils equal, round and reactive to light, extraocular movements intact, sclera anicteric. right pupil has corneal opacity. EARS, NOSE, THROAT: Ears normal, nares patent, oropharynx clear without exudates. Moist mucous membranes. no blood in mouth NECK: vertical scar overlying cervical vertebrae LUNGS: Breath sounds equal, clear to auscultation bilaterally. No wheezes, and no crackles. No accessory muscle use. HEART: Regular rate and rhythm, normal S1 and S2 without murmur, rub or gallop. ABDOMEN: scaphoid, peg tube, suprapubic catheter draining yellow urine, soft, mildly tender over epigastric/LUQ and around suprapubic catheter site, no organomegaly MUSCULOSKELETAL: + dystonia UPPER EXTREMITIES: 2+ pulses, warm, well-perfused. No cyanosis. No clubbing. No peripheral edema. LOWER EXTREMITIES: 2+ pulses, warm, well-perfused. No calf tenderness. No peripheral edema. NEUROLOGICAL: Cranial nerves II-XII intact. + dysarthria. gait not observed. PSYCHIATRIC: Cooperative. Good eye contact. Appropriate mood and affect. SKIN: Warm, dry, normal turgor, no rashes or lesions noted, normal capillary refill. Laboratory Results - last 24 hr 03/28/17 03/28/17 03/28/17 22:10 22:10 22:10 WBC 7.9 D RBC 4.09 Hgb 13.3 Hct 38.8 MCV 94.8 MCH 32.4 MCHC 34.2 RDW 12.7 Plt Count 210 MPV 9.1 Neutrophils % 63.3 Lymphocytes % 17.4 D Monocytes % 14.9 H Eosinophils % 3.9 Basophils % 0.5 Sodium 138 Potassium 4.1 Chloride 102 Carbon Dioxide 30 Anion Gap 6 L BUN 22 H Creatinine 0.6 L Creat Clearance w eGFR > 60 Random Glucose 77 Calcium 8.5 Total Bilirubin 0.6 AST 22 D ALT 33 Alkaline Phosphatase 106 Total Protein 6.7 Albumin 3.6 Blood Type A POSITIVE Antibody Screen Negative ASSESSMENT/PLAN: 61M w/ hx of dystonia s/p cervical fracture, hemoptysis likely 2/2 bronchiectasis, asthma, COPD, sleep apnea, PNA, and dysphagia w/ peg tube who presents with another episode of hemoptysis. #hemoptysis -appears to be 2/2 persistent aspiration and coughing due to GERD and dysphagia after tube feeds -seen by pulm in the past. Chart says likely 2/2 bronchiectasis. Was given rocephin, bronchodilators, and O2 at most recent admission for it. -fiberoptic bronchoscopy in past (pt says 3 years ago) did not show evidence of endobronchial pathology to account for bronchiectasis -pulmonology consulted, Dr. Garcia, f/u recs -started rocephin -pt satting well on RA, so no O2 or bronchodilators given -Hgb of 13.3. trend cbc #constipation -continue senna, colace #muscle pain -continue tramadol #neurogenic bladder -continue oxybutynin -suprapubic catheter in place draining yellow urine #asthma/copd -not in exacerbation -continue ventolin -duonebs PRN #dysphagia w/ peg tube -maintain upright position during feeds to minimize aspiration #FEN/PPx -no fluids -electrolytes wnl -tube feeds -protonix -scds -Juan Manuel Benitez MD PGY1 Visit type - Emergency Visit Emergency Visit: Yes ED Registration Date: 03/28/17 Care time: The patient presented to the Emergency Department on the above date and was hospitalized for further evaluation of their emergent condition. - New Patient This patient is new to me today: Yes Date on this admission: 03/29/17 - Critical Care Critical Care patient: No
[2017-03-29] MEDS ORDERED: ALBUTEROL SO4 2.5/IPRATROPIUM 0.5 INH SOL 3 ML VIAL.NEB. NEB PRN (02:54)
--- NOTE | 2017-03-29 04:01 | PN ---
Teaching Attending Note Name of Resident: Juan Manuel Benitez ATTENDING PHYSICIAN STATEMENT I saw and evaluated the patient. I reviewed the resident's note and discussed the case with the resident. I agree with the resident's findings and plan as documented. SUBJECTIVE: 61 yearold male with prior history of dystonia secondary to c spine fracture presents today c/o hemoptysis ( 1 cup of blood clots) , wheezing, cough dizziness and 7/10 in intensity LUQ abdominal pain that occurs during PEG feedings . PMH bronchiectasis cervical fusion s/p fracture dystonia s/p cervical fracture neurogenic bladder with suprapubic catheter asthma, COPD GERD HTN PEG OBJECTIVE: Vital Signs Temperature 98.4 F 03/28/17 21:44 Pulse Rate 51 L 03/29/17 02:52 Respiratory Rate 18 03/29/17 02:52 Blood Pressure 130/76 03/29/17 02:52 O2 Sat by Pulse Oximetry (%) 96 03/29/17 02:52 EARS, NOSE, THROAT: Ears normal, nares patent, oropharynx clear without exudates. Moist mucous membranes. no blood in mouth NECK: vertical scar overlying cervical vertebrae LUNGS: Breath sounds equal, clear to auscultation bilaterally. No wheezes, and no crackles. No accessory muscle use. HEART: Regular rate and rhythm, normal S1 and S2 without murmur, rub or gallop. ABDOMEN: scaphoid, peg tube, suprapubic catheter draining yellow urine, soft, mildly tender over epigastric/LUQ and around suprapubic catheter site, no organomegaly CBC, BMP 03/28/17 22:10 03/28/17 22:10 ASSESSMENT AND PLAN: 1. Hemoptysis - chronic and recurrent, secondary to chronic aspiration, bronchiectasis with possibly supermposed viral or bacterial infection - 02 -nebulizers - monitor H&H - avoid anticoagulants for now - rocephine - pulmonology consult 2. Abdominal pain upon feedings - trial of feedings in am - GI if fernandez persists - aspiration precautions at all times
[2017-03-29 04:41] VITALS: BMI 16.8
[2017-03-29] MEDS ORDERED: PNEUMOC 13-VAL CONJ-DIP CRM/PF 0.5 ML DISP.SYRIN IM ONE (04:41)
[2017-03-29] MEDS: ALBUTEROL SO4 0.083% IH SOL 2.5 MG/3 ML VIAL.NEB. NEB SCH ×3 (06:59→22:07)
[2017-03-29] MEDS: DOCUSATE SODIUM 100 MG CAPSULE (FP) PO SCH ×3 (07:05→22:20)
[2017-03-29 08:24] LABS: BASOPHIL 0.5 % (0-2.0); EOSINOPHIL 4.2 % (0-4.5); MCH 32.3 pg (25.7-33.7); MCHC 33.7 g/dl (32.0-35.9); MEAN CELL VOLUME 95.8 fl (80-96); MEAN PLT VOLUME 9.2 fl (7.5-11.1); NEUTROPHILS 63.7 % (42.8-82.8); PLATELET COUNT 207 K/MM3 (134-434); RDW 12.9 % (11.9-15.9); WHITE BLOOD COUNT 7.9 K/mm3 (4.0-10.0)
[2017-03-29 08:48] LABS: INR 1.02 (0.82-1.09); PROTHROMBIN TIME (PATIENT) 11.5 SEC (9.98-11.88)
--- NOTE | 2017-03-29 09:41 | CONSULT ---
Consultation: REQUESTING PROVIDER: Dr. Juan Manuel Benitez CONSULT REQUEST: We have been asked to medically evaluate this patient for hemoptysis . HISTORY OF PRESENT ILLNESS: 61 yo M with pmhx of hemoptysis believed to be 2/2 to bronchiectasis, cervical fusion s/p fracture, dystonia s/p cervical fracture, neurogenic bladder with suprapubic catheter, asthma, COPD (not on home O2), GERD, HTN, and carpal tunnel who presents with hemoptysis for the past 3 days. Patient has a PEG tube placed and states he was being fed via the PEG tube when he started coughing up blood. Patient states that he is usually lying supine at about 30 degrees while he is fed. Patient reports that hes had an intermittent dry cough recently but now he is noticing blood in his cough for the past 3 days. Patient reports that in the past three days he coughed up a total of 1 cup of blood with clots. Patient also reports wheezing, dizziness, dysphagia, and stuffy nose. Patient also reports LUQ and epigastric pain that is sharp and burning in quality and 7/ 10 in severity. He states he gets the pain when he is fed through the PEG tube. Patient also reports surapubic pain near the site of the catheter for his neurogenic bladder. Patient denies fever, chills, chest pain, SOB, or weakness. He states he wanted to come to the ED earlier but the staff at the rehab facility suggested he wait. Pt was most recently hospitalized for hemoptysis from 01/10 to 01/17. He was seen by pulmonology who gave him rocephin, O2, and bronchodilators. Pt had fiberoptic bronchoscopy in past (pt says 3 years ago), but it did not show endobronchial pathology to account for bronchiectasis. REVIEW OF SYSTEMS: CONSTITUTIONAL: Absent: fever, chills, diaphoresis, generalized weakness, malaise, loss of appetite, weight change HEENT: Absent: rhinorrhea, nasal congestion, throat pain, throat swelling, difficulty swallowing, mouth swelling, ear pain, eye pain, visual changes CARDIOVASCULAR: Absent: chest pain, syncope, palpitations, irregular heart rate, lightheadedness , peripheral edema RESPIRATORY: Absent: cough, shortness of breath, dyspnea with exertion, orthopnea, wheezing, stridor, hemoptysis GASTROINTESTINAL: Absent: abdominal pain, abdominal distension, nausea, vomiting, diarrhea, constipation, melena, hematochezia GENITOURINARY: Absent: dysuria, frequency, urgency, hesitancy, hematuria, flank pain, genital pain MUSCULOSKELETAL: Absent: myalgia, arthralgia, joint swelling, back pain, neck pain SKIN: Absent: rash, itching, pallor HEMATOLOGIC/IMMUNOLOGIC: Absent: easy bleeding, easy bruising, lymphadenopathy, frequent infections ENDOCRINE: Absent: unexplained weight gain, unexplained weight loss, heat intolerance, cold intolerance NEUROLOGIC: Absent: headache, focal weakness or paresthesias, dizziness, unsteady gait, seizure, mental status changes, bladder or bowel incontinence PSYCHIATRIC: Absent: anxiety, depression, suicidal or homicidal ideation, hallucinations. PHYSICAL EXAMINATION Vital Signs - 24 hr 03/28/17 03/28/17 03/29/17 21:44 22:27 02:52 Temperature 98.4 F Pulse Rate 55 L Pulse Rate [ 51 L Apical] Respiratory 18 18 Rate Blood Pressure 97/73 Blood Pressure 130/76 [Left Arm] O2 Sat by Pulse 96 96 96 Oximetry (%) 03/29/17 03/29/17 03:20 05:29 Temperature 97.5 F L 97.5 F L Pulse Rate 58 L 84 Pulse Rate [ Apical] Respiratory 18 18 Rate Blood Pressure 124/72 123/80 Blood Pressure [Left Arm] O2 Sat by Pulse 96 Oximetry (%) GENERAL: Awake, alert, and fully oriented, in no acute distress. HEAD: Normal with no signs of trauma. EYES: Pupils equal, round and reactive to light, extraocular movements intact, sclera anicteric, conjunctiva clear. No lid lag. EARS, NOSE, THROAT: Ears normal, nares patent, oropharynx clear without exudates. Moist mucous membranes. NECK: Normal range of motion, supple without lymphadenopathy, JVD, or masses. LUNGS: Breath sounds equal, clear to auscultation bilaterally. No wheezes, and no crackles. No accessory muscle use. HEART: Regular rate and rhythm, normal S1 and S2 without murmur, rub or gallop. ABDOMEN: Soft, nontender, not distended, normoactive bowel sounds, no guarding, no rebound, no masses. No hepatomegaly or splenomegaly. MUSCULOSKELETAL: Normal range of motion at all joints. No bony deformities or tenderness. No CVA tenderness. UPPER EXTREMITIES: 2+ pulses, warm, well-perfused. No cyanosis. No clubbing. Cap refill <2 seconds. No peripheral edema. LOWER EXTREMITIES: 2+ pulses, warm, well-perfused. No calf tenderness. No peripheral edema. NEUROLOGICAL: Cranial nerves II-XII intact. Normal speech. Normal gait. PSYCHIATRIC: Cooperative. Good eye contact. Appropriate mood and affect. SKIN: Warm, dry, normal turgor, no rashes or lesions noted. Laboratory Results - last 24 hr 03/28/17 03/28/17 03/28/17 22:10 22:10 22:10 WBC 7.9 D RBC 4.09 Hgb 13.3 Hct 38.8 MCV 94.8 MCH 32.4 MCHC 34.2 RDW 12.7 Plt Count 210 MPV 9.1 Neutrophils % 63.3 Lymphocytes % 17.4 D Monocytes % 14.9 H Eosinophils % 3.9 Basophils % 0.5 PT with INR INR PTT (Actin FS) D-Dimer Sodium 138 Potassium 4.1 Chloride 102 Carbon Dioxide 30 Anion Gap 6 L BUN 22 H Creatinine 0.6 L Creat Clearance w eGFR > 60 Random Glucose 77 Calcium 8.5 Total Bilirubin 0.6 AST 22 D ALT 33 Alkaline Phosphatase 106 Total Protein 6.7 Albumin 3.6 Blood Type A POSITIVE Antibody Screen Negative 03/29/17 03/29/17 03/29/17 07:00 07:00 08:25 WBC 7.9 RBC 4.08 Hgb 13.2 Hct 39.1 MCV 95.8 MCH 32.3 MCHC 33.7 RDW 12.9 Plt Count 207 MPV 9.2 Neutrophils % 63.7 Lymphocytes % 18.7 Monocytes % 12.9 H Eosinophils % 4.2 Basophils % 0.5 PT with INR 11.50 INR 1.02 PTT (Actin FS) 31.0 D-Dimer 244 H Sodium Potassium Chloride Carbon Dioxide Anion Gap BUN Creatinine Creat Clearance w eGFR Random Glucose Calcium Total Bilirubin AST ALT Alkaline Phosphatase Total Protein Albumin Blood Type Antibody Screen Active Medications Generic Name Dose Route Start Last Admin Trade Name Freq PRN Reason Stop Dose Admin Acetaminophen 325 mg 03/29/17 10:00 Tylenol - PO Q6H PRN PAIN OR FEVER Albuterol Sulfate 1 amp 03/29/17 06:00 03/29/17 06:59 Ventolin 0.083% Nebulizer Soln - NEB 1 amp TIDR ESVIN Administration Albuterol/Ipratropium 1 amp 03/29/17 02:54 Duoneb - NEB Q6H PRN SHORTNESS OF BREATH Docusate Sodium 300 mg 03/29/17 06:00 03/29/17 07:05 Colace - PO Not Given TID ESVIN Ceftriaxone Sodium 1 gm/ 50 mls @ 100 mls/hr 03/29/17 22:00 Dextrose IVPB HS ESVIN Influenza Virus Vaccine Quadrival 60 mcg 03/29/17 10:00 Flulaval Quad [id number] IM 03/29/17 10:01 .ONCE ONE Oxybutynin Chloride 10 mg 03/29/17 10:00 Ditropan - PO DAILY ESVIN Pantoprazole Sodium 40 mg 03/29/17 01:30 03/29/17 02:14 Protonix Iv IVPUSH 40 mg DAILY ESVIN Administration Pneumococcal Polyvalent Vaccine 0.5 ml 03/29/17 10:00 Pneumovax - IM 03/29/17 10:01 .ONCE ONE Senna 1 tab 03/29/17 10:00 Senna - PO BID ESVIN Tramadol HCl 50 mg 03/29/17 01:23 03/29/17 01:50 Ultram - PO 50 mg Q4H PRN Administration PAIN CBC, BMP 03/29/17 07:00 03/28/17 22:10 ASSESSMENT/PLAN: 61 year old male with prior history of dystonia secondary to c spine fracture presents today c/o hemoptysis ( 1 cup of blood clots) , wheezing, cough dizziness and 7/10 in intensity LUQ abdominal pain that occurs during PEG feedings . #bronchiectasis #cervical fusion s/p fracture #dystonia s/p cervical fracture #neurogenic bladder with suprapubic catheter #asthma, #COPD #GERD #HTN #PEG Plan: -IV antibiotics - O2 as needed - aspiration precautions - DVT prophylaxis - inhaled bronchodilators Dispo: We will continue to follow the patient. Thank you for this consultative opportunity. Visit type - Emergency Visit Emergency Visit: Yes ED Registration Date: 03/28/17 Care time: The patient presented to the Emergency Department on the above date and was hospitalized for further evaluation of their emergent condition. - New Patient This patient is new to me today: Yes Date on this admission: 03/28/17 - Critical Care Critical Care patient: No
[2017-03-29] MEDS ORDERED: SENNOSIDES 8.6MG TABLET (FP) PO SCH (10:00)
[2017-03-29] MEDS ORDERED: FLU VACCINE QUAD 60 MCG/0.5 ML (MDV 17-18) IM ONE (10:00)
[2017-03-29] MEDS ORDERED: ENOXAPARIN NA (PORCINE) 40 MG/0.4 ML DISP.SYRIN SQ SCH (10:00)
[2017-03-29] MEDS ORDERED: PNEUMOCOCCAL 23 VACCINE 0.5 ML VIAL IM ONE (10:00)
[2017-03-29] MEDS ORDERED: ACETAMINOPHEN 325 MG TABLET (FP) PO PRN (10:00)
--- NOTE | 2017-03-29 11:09 | EKG ---
Test Reason : Blood Pressure : / mmHG Vent. Rate : 045 BPM Atrial Rate : 045 BPM P-R Int : 112 ms QRS Dur : 122 ms QT Int : 452 ms P-R-T Axes : 036 -45 065 degrees QTc Int : 390 ms POOR DATA QUALITY, INTERPRETATION MAY BE ADVERSELY AFFECTED SINUS BRADYCARDIA RIGHT BUNDLE BRANCH BLOCK LEFT ANTERIOR FASCICULAR BLOCK BIFASCICULAR BLOCK ABNORMAL ECG Confirmed by BYRON RICO MD ([id number]) on 03/29/2017 11:09:16 AM Referred By: Confirmed By:BYRON RICO MD
[2017-03-29] MEDS: OXYBUTYNIN CHLORIDE 5 MG TABLET PO SCH (12:29)
[2017-03-29] MEDS: SENNOSIDES 8.8 MG/5 ML BULK BOTTLE PO SCH ×2 (14:28→22:18)
[2017-03-29] MEDS: methylPREDNISolone NA SUCC 40 MG/1 ML VIAL IVPUSH SCH ×2 (14:28→22:19)
[2017-03-29] MEDS: SODIUM CHLORIDE 1,000 ML IV SCH (14:29)
[2017-03-29] MEDS: ALBUTEROL SO4 2.5/IPRATROPIUM 0.5 INH SOL 3 ML VIAL.NEB. NEB SCH ×3 (14:33→22:09)
--- NOTE | 2017-03-29 14:41 | PN ---
Teaching Attending Note Name of Resident: Brian Burger ATTENDING PHYSICIAN STATEMENT I saw and evaluated the patient. I reviewed the resident's note and discussed the case with the resident. I agree with the resident's findings and plan as documented. Patient is a 61 year old male with a significant past medical history of cervical fusion s/p fracture, dystonia, neurogenic bladder, PEG tube presents with hemoptysis. Patient states that he is coughing and spitting up bright red blood. He notes that the blood is coming out of his nose when he is coughing. He also reports epigastric pain. Patient is actively coughing up bright red blood. He denies any fever, chills, nausea, vomiting, diarrhea, melena, pain with deep inspiration, light-headedness. Patient was recently admitted to [facility] with pneumonia/hemoptysis. Will repeat ct chest bronchodilators/antibiotics/steroids/chest PT quantitate hemoptysis will follow Bryan GAYTAN MD
[2017-03-29] MEDS ORDERED: PT OWN MED DRAWER 7, Y5N ONE (22:09)
[2017-03-29] MEDS: CEFTRIAXONE 1 G/50 ML PREMIX 50 ML IVPB SCH (22:19)
[2017-03-29] MEDS ORDERED: diazePAM 5 MG TABLET PEG ONE (22:28)
[2017-03-30] MEDS: SODIUM CHLORIDE 1,000 ML IV SCH ×2 (01:22→17:15)
[2017-03-30] MEDS: DOCUSATE SODIUM 100 MG CAPSULE (FP) PO SCH (06:23)
[2017-03-30] MEDS: ALBUTEROL SO4 2.5/IPRATROPIUM 0.5 INH SOL 3 ML VIAL.NEB. NEB SCH ×4 (06:32→22:00)
[2017-03-30] MEDS: methylPREDNISolone NA SUCC 40 MG/1 ML VIAL IVPUSH SCH ×2 (09:33→21:52)
[2017-03-30] MEDS: PANTOPRAZOLE SODIUM 40 MG VIAL IVPUSH SCH (09:34)
[2017-03-30] MEDS: OXYBUTYNIN CHLORIDE 5 MG TABLET PO SCH (09:34)
[2017-03-30] MEDS ORDERED: DOCUSATE NA 100 MG/10 ML UNIT-DOSE CUPS PO PRN (10:12)
[2017-03-30] MEDS ORDERED: MINERAL OIL ENEMA 133 ML ENEMA PR ONE (10:12)
[2017-03-30] MEDS: diazePAM 5 MG TABLET PEG PRN ×2 (10:42→22:01)
--- NOTE | 2017-03-30 11:03 | PN ---
Progress Note, Physician Chief Complaint: fresh blood - Current Medication List Current Medications: Active Medications Acetaminophen (Tylenol -) 325 mg PO Q6H PRN PRN Reason: PAIN OR FEVER Albuterol/Ipratropium (Duoneb -) 1 amp NEB Q4HWA [facility] Last Admin: 03/30/17 06:32 Dose: Not Given Diazepam (Valium -) 5 mg PEG Q8H PRN Last Admin: 03/30/17 10:42 Dose: 5 mg Docusate Sodium (Colace Liquid -) 200 mg PO DAILY PRN PRN Reason: CONSTIPATION CEFTRIAXONE 1 G/50 ML PREMIX (Ceftriaxone 1 Gm-D5w Bag) 50 mls @ 100 mls/hr IVPB [facility] Last Admin: 03/29/17 22:19 Dose: 100 mls/hr Sodium Chloride (Normal Saline -) 1,000 mls @ 83 mls/hr IV ASDIR [facility] Last Admin: 03/30/17 01:22 Dose: 83 mls/hr Methylprednisolone Sodium Succinate (Solu-Medrol -) 40 mg IVPUSH BID [facility] Last Admin: 03/30/17 09:33 Dose: 40 mg Oxybutynin Chloride (Ditropan -) 10 mg PO DAILY [facility] Last Admin: 03/30/17 09:34 Dose: 10 mg Pantoprazole Sodium (Protonix Iv) 40 mg IVPUSH DAILY [facility] Last Admin: 03/30/17 09:34 Dose: 40 mg Senna (Senna Oral Solution -) 8.8 mg PO [facility] Last Admin: 03/29/17 22:18 Dose: 5 ml Tramadol HCl (Ultram -) 50 mg PO Q4H PRN PRN Reason: PAIN Last Admin: 03/29/17 12:28 Dose: 50 mg - Objective Vital Signs: Vital Signs Temperature 98.6 F 03/30/17 02:00 Pulse Rate 81 03/30/17 02:00 Respiratory Rate 20 03/30/17 09:06 Blood Pressure 131/85 03/30/17 02:00 O2 Sat by Pulse Oximetry (%) 97 03/30/17 09:06 Constitutional: Yes: Well Nourished, No Distress, Calm Eyes: Yes: WNL HENT: Yes: WNL, Epistaxis (patient had blood stains on his teeth after he coughed the blood) Neck: Yes: WNL Cardiovascular: Yes: WNL, Regular Rate and Rhythm, S1, S2 Respiratory: Yes: WNL Edema: LLE: Trace, RLE: Trace Peripheral Pulses: Left Radial: 2+, Right Radial: 2+, Left Femoral: 2+, Right Femoral: 2+ Integumentary: Yes: WNL Labs: CBC, BMP 03/29/17 07:00 03/28/17 22:10 INR, PTT INR 1.02 (0.82-1.09) 03/29/17 07:00 Problem List - Problems (1) Hemoptysis Assessment/Plan: followed by pulmonary Code(s): R04.2 - HEMOPTYSIS (2) Aspiration of blood Code(s): R09.89 - OTH SYMPTOMS AND SIGNS INVOLVING THE CIRC AND RESP SYSTEMS (3) Asthma Assessment/Plan: not in acute exacerbation Code(s): J45.909 - UNSPECIFIED ASTHMA, UNCOMPLICATED (4) COPD (chronic obstructive pulmonary disease) Assessment/Plan: not in acute exacerbation Code(s): J44.9 - CHRONIC OBSTRUCTIVE PULMONARY DISEASE, UNSPECIFIED Qualifiers: COPD type: COPD with acute exacerbation Qualified Code(s): J44.1 - Chronic obstructive pulmonary disease with (acute) exacerbation (5) Cavitary lesion of lung Code(s): J98.4 - OTHER DISORDERS OF LUNG (6) Constipation Code(s): K59.00 - CONSTIPATION, UNSPECIFIED (7) Dysphagia Code(s): R13.10 - DYSPHAGIA, UNSPECIFIED (8) GERD (gastroesophageal reflux disease) Code(s): K21.9 - GASTRO-ESOPHAGEAL REFLUX DISEASE WITHOUT ESOPHAGITIS (9) HTN (hypertension) Code(s): I10 - ESSENTIAL (PRIMARY) HYPERTENSION Qualifiers: Assessment/Plan patient was noted to have a bag with fresh blood that happened about 10 minutes before examination (1015am) he stated that this was less than yesterday and that he usually gets nauseated when the patient gets fed. besides that he has no other complaints. #hemoptysis: -seen by pulm in the past. Chart says likely 2/2 bronchiectasis. -fiberoptic bronchoscopy in past (pt says 3 years ago) did not show evidence of endobronchial pathology to account for bronchiectasis -pulmonology consulted, Dr. Garcia, f/u recs c/w rocephin pt satting well on RA, so no O2 or bronchodilators given Hgb of 13.3. trend cbc ENT evaluation for secondary causes of bleeding. The blood looks fresh #constipation -continue senna, colace #muscle pain -continue tramadol #neurogenic bladder -continue oxybutynin #asthma/copd - stable no in acute exacerbation -continue albuterol q6hr prn -c/w methylprednisone - c/w albuterol/ipratropium q4hrs #dysphagia w/ peg tube -maintain upright position during feeds to minimize aspiration #FEN/PPx -pantaprzole 40mg daily -scds
--- NOTE | 2017-03-30 12:34 | PN ---
Progress Note (short form) - Note Progress Note: PULMONARY Still with mee hemoptysis. States everytime he receives anything in PEG triggers the hemoptysis. Some left sided chest discomfort at lower ribs. Last Vital Signs Temp Pulse Resp BP Pulse Ox 98.6 F 81 20 131/85 97 03/30/17 02:00 03/30/17 02:00 03/30/17 09:06 03/30/17 02:00 03/30/17 09:06 Gen: NAD at rest Heart: RRR Lung: decreased breath sounds at the bases Abd: soft, nontender Ext: no edema CBC, BMP 03/29/17 07:00 03/28/17 22:10 Active Medications Acetaminophen (Tylenol -) 325 mg PO Q6H PRN PRN Reason: PAIN OR FEVER Albuterol/Ipratropium (Duoneb -) 1 amp NEB Q4HWA [facility] Last Admin: 03/30/17 06:32 Dose: Not Given Diazepam (Valium -) 5 mg PEG Q8H PRN Last Admin: 03/30/17 10:42 Dose: 5 mg Docusate Sodium (Colace Liquid -) 200 mg PO DAILY PRN PRN Reason: CONSTIPATION CEFTRIAXONE 1 G/50 ML PREMIX (Ceftriaxone 1 Gm-D5w Bag) 50 mls @ 100 mls/hr IVPB [facility] Last Admin: 03/29/17 22:19 Dose: 100 mls/hr Sodium Chloride (Normal Saline -) 1,000 mls @ 83 mls/hr IV ASDIR [facility] Last Admin: 03/30/17 01:22 Dose: 83 mls/hr Methylprednisolone Sodium Succinate (Solu-Medrol -) 40 mg IVPUSH BID [facility] Last Admin: 03/30/17 09:33 Dose: 40 mg Oxybutynin Chloride (Ditropan -) 10 mg PO DAILY [facility] Last Admin: 03/30/17 09:34 Dose: 10 mg Pantoprazole Sodium (Protonix Iv) 40 mg IVPUSH DAILY [facility] Last Admin: 03/30/17 09:34 Dose: 40 mg Senna (Senna Oral Solution -) 8.8 mg PO HS [facility] Last Admin: 03/29/17 22:18 Dose: 5 ml Tramadol HCl (Ultram -) 50 mg PO Q4H PRN PRN Reason: PAIN Last Admin: 03/29/17 12:28 Dose: 50 mg A/P Hemoptysis COPD Bronchiectasis Dystonia HTN Neurogenic Bladder Suprapubic Catheter GERD - awaiting CT chest - may need embolization if continues to have mee hemoptysis - continue medrol at current dose - continue antibiotics - inhaled bronchodilators - O2 as needed - mechanical DVT prophylaxis bronchiectasis, cervical fusion s/p fracture, dystonia s/p cervical fracture, neurogenic bladder with suprapubic catheter, asthma, COPD (not on home O2), GERD , HTN, and carpal tunnel
[2017-03-30] MEDS ORDERED: PT OWN MED DRAWER 7, Y5N ONE (21:18)
[2017-03-30] MEDS: CEFTRIAXONE 1 G/50 ML PREMIX 50 ML IVPB SCH (21:52)
[2017-03-30] MEDS: SENNOSIDES 8.8 MG/5 ML BULK BOTTLE PO SCH (22:02)
[2017-03-31] MEDS: ALBUTEROL SO4 2.5/IPRATROPIUM 0.5 INH SOL 3 ML VIAL.NEB. NEB SCH ×5 (05:54→23:06)
[2017-03-31] MEDS: SODIUM CHLORIDE 1,000 ML IV SCH ×2 (06:28→21:53)
[2017-03-31 08:09] LABS: BASOPHIL 0.2 % (0-2.0); MCH 32.4 pg (25.7-33.7); MCHC 33.7 g/dl (32.0-35.9); MEAN PLT VOLUME 9.4 fl (7.5-11.1); NEUTROPHILS 86.4 % (42.8-82.8); RDW 12.8 % (11.9-15.9); WHITE BLOOD COUNT 9.8 K/mm3 (4.0-10.0)
[2017-03-31 09:21] LABS: ALBUMIN 3.2 g/dl (3.4-5.0); ALK PHOS 90 U/L (45-117); ANION GAP 7 (8-16); BILIRUBIN,TOTAL 0.6 mg/dL (0.2-1.0); CALCIUM 8.5 mg/dL (8.5-10.1); CO2 28 mmol/L (21-32); CREATININE 0.6 mg/dL (0.7-1.3); GLUCOSE,RANDOM 106 mg/dL (74-106); SGOT/AST 15 U/L (15-37); SGPT/ALT 26 U/L (12-78)
--- NOTE | 2017-03-31 09:26 | PN ---
Progress Note, Physician - Current Medication List Current Medications: Active Medications Acetaminophen (Tylenol -) 325 mg PO Q6H PRN PRN Reason: PAIN OR FEVER Albuterol/Ipratropium (Duoneb -) 1 amp NEB Q4HWA [facility] Last Admin: 03/31/17 05:54 Dose: Not Given Diazepam (Valium -) 5 mg PEG Q8H PRN Last Admin: 03/30/17 22:01 Dose: 5 mg Docusate Sodium (Colace Liquid -) 200 mg PO DAILY PRN PRN Reason: CONSTIPATION CEFTRIAXONE 1 G/50 ML PREMIX (Ceftriaxone 1 Gm-D5w Bag) 50 mls @ 100 mls/hr IVPB [facility] Last Admin: 03/30/17 21:52 Dose: 100 mls/hr Sodium Chloride (Normal Saline -) 1,000 mls @ 83 mls/hr IV ASDIR [facility] Last Admin: 03/31/17 06:28 Dose: 83 mls/hr Methylprednisolone Sodium Succinate (Solu-Medrol -) 40 mg IVPUSH BID [facility] Last Admin: 03/30/17 21:52 Dose: 40 mg Oxybutynin Chloride (Ditropan -) 10 mg PO DAILY [facility] Last Admin: 03/30/17 09:34 Dose: 10 mg Pantoprazole Sodium (Protonix Iv) 40 mg IVPUSH DAILY [facility] Last Admin: 03/30/17 09:34 Dose: 40 mg Senna (Senna Oral Solution -) 8.8 mg PO [facility] Last Admin: 03/30/17 22:02 Dose: Not Given Tramadol HCl (Ultram -) 50 mg PO Q4H PRN PRN Reason: PAIN Last Admin: 03/29/17 12:28 Dose: 50 mg - Objective Vital Signs: Vital Signs Temperature 97.9 F 03/31/17 02:10 Pulse Rate 77 03/31/17 02:10 Respiratory Rate 18 03/31/17 02:10 Blood Pressure 102/64 03/31/17 02:10 O2 Sat by Pulse Oximetry (%) 97 03/30/17 21:00 Constitutional: Yes: Well Nourished, No Distress, Calm Eyes: Yes: WNL, Conjunctiva Clear HENT: Yes: WNL, Atraumatic, Normocephalic Neck: Yes: WNL, Supple, Trachea Midline Cardiovascular: Yes: WNL, Regular Rate and Rhythm, S1, S2 Respiratory: Yes: WNL, Regular, CTA Bilaterally, Cough, Other (patient is still coughing up blood) Gastrointestinal: Yes: WNL, Normal Bowel Sounds, Soft Edema: LUE: Trace, RUE: Trace, LLE: Trace, RLE: Trace Peripheral Pulses WNL: Yes Labs: CBC, BMP 03/31/17 07:30 INR, PTT INR 1.02 (0.82-1.09) 03/29/17 07:00 Problem List - Problems (1) Hemoptysis Code(s): R04.2 - HEMOPTYSIS (2) Aspiration of blood Code(s): R09.89 - OTH SYMPTOMS AND SIGNS INVOLVING THE CIRC AND RESP SYSTEMS (3) Asthma Code(s): J45.909 - UNSPECIFIED ASTHMA, UNCOMPLICATED (4) COPD (chronic obstructive pulmonary disease) Code(s): J44.9 - CHRONIC OBSTRUCTIVE PULMONARY DISEASE, UNSPECIFIED Qualifiers: COPD type: COPD with acute exacerbation Qualified Code(s): J44.1 - Chronic obstructive pulmonary disease with (acute) exacerbation (5) Cavitary lesion of lung Code(s): J98.4 - OTHER DISORDERS OF LUNG (6) Constipation Code(s): K59.00 - CONSTIPATION, UNSPECIFIED (7) Dysphagia Code(s): R13.10 - DYSPHAGIA, UNSPECIFIED (8) GERD (gastroesophageal reflux disease) Code(s): K21.9 - GASTRO-ESOPHAGEAL REFLUX DISEASE WITHOUT ESOPHAGITIS (9) HTN (hypertension) Code(s): I10 - ESSENTIAL (PRIMARY) HYPERTENSION Qualifiers: Assessment/Plan patient is still complaining of coughing up blood he stated that this was the same amount he had yesterday and that he usually gets nauseated when the patient gets fed. besides that he has no other complaints. #hemoptysis: -seen by pulm in the past. Chart says likely 2/2 bronchiectasis. -fiberoptic bronchoscopy in past (pt says 3 years ago) did not show evidence of endobronchial pathology to account for bronchiectasis -pulmonology consulted, Dr. Garcia, f/u recs c/w rocephitanner pt satting well on RA, so no O2 or bronchodilators given Hgb of 11.2. trend cbc and transfuse if the patient Hb drops to < 7, speak to Pulmonary if the patient is still bleeding place the pateint on the same side of the bleeding happens, intubate if needed to protect the airways. repeat CBC in the morning #constipation -continue senna, colace #muscle pain -continue tramadol #neurogenic bladder -continue oxybutynin #asthma/copd - stable no in acute exacerbation -continue albuterol q6hr prn -c/w methylprednisone - c/w albuterol/ipratropium q4hrs #dysphagia w/ peg tube -maintain upright position during feeds to minimize aspiration #FEN/PPx -pantaprzole 40mg daily -scds
[2017-03-31] MEDS: PANTOPRAZOLE SODIUM 40 MG VIAL IVPUSH SCH (09:34)
[2017-03-31] MEDS: OXYBUTYNIN CHLORIDE 5 MG TABLET PO SCH (09:35)
[2017-03-31] MEDS: methylPREDNISolone NA SUCC 40 MG/1 ML VIAL IVPUSH SCH ×2 (09:35→21:45)
[2017-03-31] MEDS: diazePAM 5 MG TABLET PEG PRN ×2 (09:36→21:44)
[2017-03-31 10:06] LABS: PLATELET COUNT 172 K/MM3 (134-434)
--- NOTE | 2017-03-31 13:55 | PN ---
Progress Note (short form) - Note Progress Note: PULMONARY Hemoptysis less and darker in color. Still states everytime he receives anything in PEG triggers the hemoptysis. CT chest showing area of bronchiectasis NADINE similar to prior exams but also now with additional nonspecific nodules. Last Vital Signs Temp Pulse Resp BP Pulse Ox 98.7 F 56 L 18 105/60 97 03/31/17 13:36 03/31/17 13:36 03/31/17 13:36 03/31/17 13:36 03/30/17 21:00 Gen: NAD at rest Heart: RRR Lung: decreased breath sounds at the bases Abd: soft, nontender Ext: no edema CBC, BMP 03/31/17 07:30 03/31/17 07:30 Active Medications Acetaminophen (Tylenol -) 325 mg PO Q6H PRN PRN Reason: PAIN OR FEVER Albuterol/Ipratropium (Duoneb -) 1 amp NEB Q4HWA [facility] Last Admin: 03/31/17 10:20 Dose: 1 amp Diazepam (Valium -) 5 mg PEG Q8H PRN Last Admin: 03/31/17 09:36 Dose: 5 mg Docusate Sodium (Colace Liquid -) 200 mg PO DAILY PRN PRN Reason: CONSTIPATION CEFTRIAXONE 1 G/50 ML PREMIX (Ceftriaxone 1 Gm-D5w Bag) 50 mls @ 100 mls/hr IVPB [facility] Last Admin: 03/30/17 21:52 Dose: 100 mls/hr Sodium Chloride (Normal Saline -) 1,000 mls @ 83 mls/hr IV ASDIR [facility] Last Admin: 03/31/17 06:28 Dose: 83 mls/hr Methylprednisolone Sodium Succinate (Solu-Medrol -) 40 mg IVPUSH BID [facility] Last Admin: 03/31/17 09:35 Dose: 40 mg Oxybutynin Chloride (Ditropan -) 10 mg PO DAILY [facility] Last Admin: 03/31/17 09:35 Dose: 10 mg Pantoprazole Sodium (Protonix Iv) 40 mg IVPUSH DAILY [facility] Last Admin: 03/31/17 09:34 Dose: 40 mg Senna (Senna Oral Solution -) 8.8 mg PO [facility] Last Admin: 03/30/17 22:02 Dose: Not Given Tramadol HCl (Ultram -) 50 mg PO Q4H PRN PRN Reason: PAIN Last Admin: 03/29/17 12:28 Dose: 50 mg A/P Hemoptysis COPD Bronchiectasis Dystonia HTN Neurogenic Bladder Suprapubic Catheter GERD - hemoptysis appears to be resolving, may need embolization if continues to have mee hemoptysis - continue medrol at current dose - continue antibiotics - inhaled bronchodilators - O2 as needed - mechanical DVT prophylaxis - will need outpt f/u of lung nodules
[2017-03-31] MEDS ORDERED: PT OWN MED DRAWER 7, Y5N ONE (21:11)
[2017-03-31] MEDS: CEFTRIAXONE 1 G/50 ML PREMIX 50 ML IVPB SCH (21:53)
[2017-03-31] MEDS: SENNOSIDES 8.8 MG/5 ML BULK BOTTLE PO SCH (21:53)
[2017-04-01] MEDS ORDERED: PT OWN MED DRAWER 7, Y5N ONE ×2 (06:19→20:46)
[2017-04-01] MEDS: ALBUTEROL SO4 2.5/IPRATROPIUM 0.5 INH SOL 3 ML VIAL.NEB. NEB SCH ×5 (06:35→22:37)
[2017-04-01 07:21] LABS: BASOPHIL 0.1 % (0-2.0); MCH 32.4 pg (25.7-33.7); MCHC 33.9 g/dl (32.0-35.9); MEAN CELL VOLUME 95.7 fl (80-96); MEAN PLT VOLUME 8.7 fl (7.5-11.1); PLATELET COUNT 192 K/MM3 (134-434); RDW 12.5 % (11.9-15.9); WHITE BLOOD COUNT 7.5 K/mm3 (4.0-10.0)
[2017-04-01 09:21] LABS: ALBUMIN 3.2 g/dl (3.4-5.0); ANION GAP 11 (8-16); BILIRUBIN,TOTAL 0.7 mg/dL (0.2-1.0); CALCIUM 8.3 mg/dL (8.5-10.1); CO2 25 mmol/L (21-32); CREATININE 0.5 mg/dL (0.7-1.3); GLUCOSE,RANDOM 103 mg/dL (74-106); SGOT/AST 17 U/L (15-37); SGPT/ALT 26 U/L (12-78)
[2017-04-01 09:22] LABS: ALK PHOS 85 U/L (45-117); TOT PROT 6.1 g/dl (6.4-8.2)
--- NOTE | 2017-04-01 10:27 | PN ---
Physical Exam: SUBJECTIVE: Patient seen and examined at bedside. No acute events over night. OBJECTIVE: Vital Signs Period Temp Pulse Resp BP Sys/Marroquin Pulse Ox Last 24 Hr 97.9 F-98.7 F 50-62 18-19 105-119/56-64 97 GENERAL: The patient is awake, alert, and fully oriented, in no acute distress. HEAD: Normal with no signs of trauma. EYES: PERRL, extraocular movements intact, sclera anicteric, conjunctiva clear. No ptosis. ENT: Ears normal, nares patent, oropharynx clear without exudates, moist mucous membranes. NECK: Trachea midline, full range of motion, supple. LUNGS: Breath sounds equal, clear to auscultation bilaterally, no wheezes, no crackles, no accessory muscle use. HEART: Regular rate and rhythm, S1, S2 without murmur, rub or gallop. ABDOMEN: Soft, nontender, nondistended, normoactive bowel sounds, no guarding, no rebound, no hepatosplenomegaly, no masses. EXTREMITIES: 2+ pulses, warm, well-perfused, no edema. NEUROLOGICAL: Cranial nerves II through XII grossly intact. Normal speech, gait not observed. PSYCH: Normal mood, normal affect. SKIN: Warm, dry, normal turgor, no rashes or lesions noted Laboratory Results - last 24 hr 04/01/17 04/01/17 06:00 06:00 WBC 7.5 RBC 3.60 L Hgb 11.7 Hct 34.5 L MCV 95.7 MCH 32.4 MCHC 33.9 RDW 12.5 Plt Count 192 MPV 8.7 Neutrophils % 86.0 H Lymphocytes % 7.7 L Monocytes % 6.2 Eosinophils % 0.0 Basophils % 0.1 Sodium 140 Potassium 4.3 Chloride 104 Carbon Dioxide 25 Anion Gap 11 BUN 19 H Creatinine 0.5 L Creat Clearance w eGFR > 60 Random Glucose 103 Calcium 8.3 L Total Bilirubin 0.7 AST 17 ALT 26 Alkaline Phosphatase 85 Total Protein 6.1 L Albumin 3.2 L Active Medications Generic Name Dose Route Start Last Admin Trade Name Freq PRN Reason Stop Dose Admin Acetaminophen 325 mg 03/29/17 10:00 Tylenol - PO Q6H PRN PAIN OR FEVER Albuterol/Ipratropium 1 amp 03/29/17 14:00 04/01/17 09:28 Duoneb - NEB 1 amp Q4HWA [facility] Administration Diazepam 5 mg 03/30/17 10:15 03/31/17 21:44 Valium - PEG 5 mg Q8H PRN Administration Docusate Sodium 200 mg 03/30/17 10:12 Colace Liquid - PO DAILY PRN CONSTIPATION CEFTRIAXONE 1 G/50 ML PREMIX 50 mls @ 100 mls/hr 03/29/17 22:00 03/31/17 21: 53 Ceftriaxone 1 Gm-D5w Bag IVPB 100 mls/hr HS [facility] Administration Sodium Chloride 1,000 mls @ 83 mls/hr 03/29/17 13:15 03/31/17 21:53 Normal Saline - IV 83 mls/hr ASDIR [facility] Administration Methylprednisolone Sodium Succinate 40 mg 03/29/17 12:49 03/31/17 21:45 Solu-Medrol - IVPUSH 40 mg BID [facility] Administration Oxybutynin Chloride 10 mg 03/29/17 10:00 03/31/17 09:35 Ditropan - PO 10 mg DAILY [facility] Administration Pantoprazole Sodium 40 mg 03/29/17 01:30 03/31/17 09:34 Protonix Iv IVPUSH 40 mg DAILY [facility] Administration Senna 8.8 mg 03/29/17 13:00 03/31/17 21:53 Senna Oral Solution - PO Not Given HS [facility] CBC, BMP 04/01/17 06:00 04/01/17 06:00 Microbiology 03/29/17 02:00 Blood - Peripheral Venous Blood Culture - Preliminary NO GROWTH OBTAINED AFTER 72 HOURS, INCUBATION TO CONTINUE FOR 2 DAYS. 03/29/17 02:00 Blood - Peripheral Venous Blood Culture - Preliminary NO GROWTH OBTAINED AFTER 72 HOURS, INCUBATION TO CONTINU FOR [address] chest: 1. Multiple groundglass nodules in the lingula and left lower lobe which are most likely infectious. Nonspecific 1.6 cm groundglass opacity in the right lung apex also may be infectious/ inflammatory. Follow-up chest CT is recommended in 3 months after completion of therapy. 2. Bronchial wall thickening throughout, most notably along the segmental and subsegmental airways to the inferior lingula with near complete occlusion of these airways. These findings may be attributed to mucus impaction. This will be reassessed on 3 month follow-up chest CT to exclude endobronchial lesion. 3. Subsegmental opacity in the inferior lingula is most likely atelectasis. 4. Small pericardial effusion. 5. Small thyroid gland. Please correlate with history and thyroid function tests. ASSESSMENT/PLAN: Hemoptysis COPD Bronchiectasis Dystonia HTN Neurogenic Bladder Suprapubic Catheter GERD - hemoptysis appears to be resolving, may need embolization if continues to have mee hemoptysis - continue medrol at current dose - continue antibiotics - inhaled bronchodilators - O2 as needed - mechanical DVT prophylaxis - will need outpt f/u of lung nodules Visit type - Emergency Visit Emergency Visit: Yes ED Registration Date: 03/28/17 Care time: The patient presented to the Emergency Department on the above date and was hospitalized for further evaluation of their emergent condition. - New Patient This patient is new to me today: No - Critical Care Critical Care patient: No - Discharge Referral Referred to [facility] Med P.C.: No
[2017-04-01] MEDS: PANTOPRAZOLE SODIUM 40 MG VIAL IVPUSH SCH (10:29)
[2017-04-01] MEDS: methylPREDNISolone NA SUCC 40 MG/1 ML VIAL IVPUSH SCH ×2 (10:29→21:16)
[2017-04-01] MEDS: OXYBUTYNIN CHLORIDE 5 MG TABLET PO SCH (10:29)
[2017-04-01] MEDS: diazePAM 5 MG TABLET PEG PRN ×2 (10:29→21:20)
--- NOTE | 2017-04-01 12:46 | PN ---
Progress Note, Physician Chief Complaint: Mr Nash says he is still coughing up blood, says it is less but still significant. No cp, sob, n/v. Requesting urology consult for catheter change. - Current Medication List Current Medications: Active Medications Acetaminophen (Tylenol -) 325 mg PO Q6H PRN PRN Reason: PAIN OR FEVER Albuterol/Ipratropium (Duoneb -) 1 amp NEB Q4HWA [facility] Last Admin: 04/01/17 09:28 Dose: 1 amp Diazepam (Valium -) 5 mg PEG Q8H PRN Last Admin: 04/01/17 10:29 Dose: 5 mg Docusate Sodium (Colace Liquid -) 200 mg PO DAILY PRN PRN Reason: CONSTIPATION CEFTRIAXONE 1 G/50 ML PREMIX (Ceftriaxone 1 Gm-D5w Bag) 50 mls @ 100 mls/hr IVPB [facility] Last Admin: 03/31/17 21:53 Dose: 100 mls/hr Sodium Chloride (Normal Saline -) 1,000 mls @ 83 mls/hr IV ASDIR [facility] Last Admin: 03/31/17 21:53 Dose: 83 mls/hr Methylprednisolone Sodium Succinate (Solu-Medrol -) 40 mg IVPUSH BID [facility] Last Admin: 04/01/17 10:29 Dose: 40 mg Oxybutynin Chloride (Ditropan -) 10 mg PO DAILY [facility] Last Admin: 04/01/17 10:29 Dose: 10 mg Pantoprazole Sodium (Protonix Iv) 40 mg IVPUSH DAILY [facility] Last Admin: 04/01/17 10:29 Dose: 40 mg Senna (Senna Oral Solution -) 8.8 mg PO [facility] Last Admin: 03/31/17 21:53 Dose: Not Given - Objective Vital Signs: Vital Signs Temperature 36.7 C 04/01/17 06:00 Pulse Rate 50 L 04/01/17 06:00 Respiratory Rate 18 04/01/17 06:00 Blood Pressure 119/64 04/01/17 06:00 O2 Sat by Pulse Oximetry (%) 97 03/31/17 21:00 Constitutional: Yes: No Distress, Calm, Thin Cardiovascular: Yes: Regular Rate and Rhythm. No: Gallop, Murmur, Rub Respiratory: Yes: Regular, Cough (hemoptysis), On Nasal O2, Rhonchi. No: CTA Bilaterally, Rales, Wheezes Gastrointestinal: Yes: Normal Bowel Sounds, Soft. No: Distention, Tenderness Extremities: Yes: WNL Edema: No Labs: CBC, BMP 04/01/17 06:00 04/01/17 06:00 INR, PTT INR 1.02 (0.82-1.09) 03/29/17 07:00 Problem List - Problems (1) Hemoptysis Assessment/Plan: -patient with recurring hemoptysis -however this time much more significant than last admissions -pulmonary managing -on rocephin and solumedrol -may need embolization -monitor H/H, stable today Code(s): R04.2 - HEMOPTYSIS (2) COPD (chronic obstructive pulmonary disease) Assessment/Plan: -exacerbation with hemoptysis -continue solumedrol -continue bronchodilators -continue rocephin Code(s): J44.9 - CHRONIC OBSTRUCTIVE PULMONARY DISEASE, UNSPECIFIED Qualifiers: COPD type: COPD with acute exacerbation Qualified Code(s): J44.1 - Chronic obstructive pulmonary disease with (acute) exacerbation (3) Suprapubic catheter Assessment/Plan: -consult Dr Maravilla to change Code(s): Z93.59 - OTHER CYSTOSTOMY STATUS (4) Protein-calorie malnutrition, severe Assessment/Plan: -patient states TF causing hemoptysis -d/w patient multiple times, however often refuses or severely limits his intake -monitor and encourage Code(s): E43 - UNSPECIFIED SEVERE PROTEIN-CALORIE MALNUTRITION
--- NOTE | 2017-04-01 14:57 | PN ---
Teaching Attending Note Name of Resident: Brian Burger ATTENDING PHYSICIAN STATEMENT I saw and evaluated the patient. I reviewed the resident's note and discussed the case with the resident. I agree with the resident's findings and plan as documented. PULMONARY ALERT,STILL HAVING HEMOPTYSIS,LESS TODAY. IMP Hemoptysis COPD Bronchiectasis Dystonia HTN Neurogenic Bladder Suprapubic Catheter GERD - continue medrol at current dose - antibiotics - inhaled bronchodilators - O2 as needed - mechanical DVT prophylaxis - codeine - quantify hemoptysis - thoracic surgery evaluation IR does not think pt is a good candidate for embolization DR MURDOCK
[2017-04-01] MEDS ORDERED: guaiFENesin/CODEINE 5 ML UNIT-DOSE CUPS PO STA (15:06)
[2017-04-01] MEDS ORDERED: traMADol HCL 50 MG TABLET PO PRN (15:11)
[2017-04-01] MEDS: AMINO ACIDS 4.25%/D5W 1,000 ML IV SCH (16:19)
[2017-04-01] MEDS: CEFTRIAXONE 1 G/50 ML PREMIX 50 ML IVPB SCH (21:15)
[2017-04-01] MEDS: SENNOSIDES 8.8 MG/5 ML BULK BOTTLE PO SCH (21:20)
[2017-04-02] MEDS: AMINO ACIDS 4.25%/D5W 1,000 ML IV SCH ×3 (03:30→18:01)
[2017-04-02] MEDS: ALBUTEROL SO4 2.5/IPRATROPIUM 0.5 INH SOL 3 ML VIAL.NEB. NEB SCH ×5 (06:33→22:35)
[2017-04-02] MEDS: methylPREDNISolone NA SUCC 40 MG/1 ML VIAL IVPUSH SCH ×2 (10:20→21:14)
[2017-04-02] MEDS: PANTOPRAZOLE SODIUM 40 MG VIAL IVPUSH SCH (10:20)
[2017-04-02] MEDS: OXYBUTYNIN CHLORIDE 5 MG TABLET PO SCH (10:20)
[2017-04-02] MEDS: diazePAM 5 MG TABLET PEG PRN ×2 (10:20→21:14)
[2017-04-02 10:29] LABS: BASOPHIL 0.1 % (0-2.0); MCH 31.9 pg (25.7-33.7); MCHC 33.1 g/dl (32.0-35.9); MEAN CELL VOLUME 96.5 fl (80-96); MEAN PLT VOLUME 8.7 fl (7.5-11.1); NEUTROPHILS 72.4 % (42.8-82.8); PLATELET COUNT 225 K/MM3 (134-434); RDW 12.7 % (11.9-15.9); WHITE BLOOD COUNT 7.2 K/mm3 (4.0-10.0)
[2017-04-02 11:21] LABS: ANION GAP 6 (8-16); CALCIUM 8.2 mg/dL (8.5-10.1); CO2 30 mmol/L (21-32); CREATININE 0.6 mg/dL (0.7-1.3); GLUCOSE,RANDOM 92 mg/dL (74-106); MAGNESIUM 2.5 mg/dL (1.8-2.4); PHOSPHOROUS 2.2 mg/dL (2.5-4.9)
--- NOTE | 2017-04-02 12:39 | PN ---
Progress Note, Physician History of Present Illness: pulmonary alert,nad,min hemoptysis dark heme. - Current Medication List Current Medications: Active Medications Acetaminophen (Tylenol -) 325 mg PO Q6H PRN PRN Reason: PAIN OR FEVER Albuterol/Ipratropium (Duoneb -) 1 amp NEB Q4HWA [facility] Last Admin: 04/02/17 06:33 Dose: Not Given Diazepam (Valium -) 5 mg PEG Q8H PRN Last Admin: 04/02/17 10:20 Dose: 5 mg Docusate Sodium (Colace Liquid -) 200 mg PO DAILY PRN PRN Reason: CONSTIPATION CEFTRIAXONE 1 G/50 ML PREMIX (Ceftriaxone 1 Gm-D5w Bag) 50 mls @ 100 mls/hr IVPB [facility] Last Admin: 04/01/17 21:15 Dose: 100 mls/hr Amino Acids (Clinimix -) 1,000 mls @ 84 mls/hr IV Q12H [facility] Last Admin: 04/02/17 05:22 Dose: 84 mls/hr Methylprednisolone Sodium Succinate (Solu-Medrol -) 40 mg IVPUSH BID [facility] Last Admin: 04/02/17 10:20 Dose: 40 mg Oxybutynin Chloride (Ditropan -) 10 mg PO DAILY [facility] Last Admin: 04/02/17 10:20 Dose: 10 mg Pantoprazole Sodium (Protonix Iv) 40 mg IVPUSH DAILY [facility] Last Admin: 04/02/17 10:20 Dose: 40 mg Senna (Senna Oral Solution -) 8.8 mg PO [facility] Last Admin: 04/01/17 21:20 Dose: Not Given Tramadol HCl (Ultram -) 50 mg PO Q8H PRN PRN Reason: PAIN Last Admin: 04/01/17 16:19 Dose: 50 mg - Objective Vital Signs: Vital Signs Temperature 98.0 F 04/02/17 06:00 Pulse Rate 61 04/02/17 06:00 Respiratory Rate 18 04/02/17 09:00 Blood Pressure 116/62 04/02/17 06:00 O2 Sat by Pulse Oximetry (%) 97 04/02/17 09:00 Constitutional: Yes: Calm, Cachectic Eyes: Yes: WNL HENT: Yes: WNL Neck: Yes: WNL Cardiovascular: Yes: Regular Rate and Rhythm, S1, S2 Respiratory: Yes: Diminished Gastrointestinal: Yes: Normal Bowel Sounds, Soft, Other (+gt) Extremities: Yes: WNL Edema: No Labs: CBC, BMP 04/02/17 09:55 04/02/17 09:55 INR, PTT INR 1.02 (0.82-1.09) 03/29/17 07:00 Assessment/Plan IMP Hemoptysis resolving COPD Bronchiectasis Dystonia HTN Neurogenic Bladder Suprapubic Catheter GERD - continue medrol - antibiotics - inhaled bronchodilators - O2 as needed - mechanical DVT prophylaxis - codeine - quantify hemoptysis - thoracic surgery evaluation IR does not think pt is a good candidate for embolization DR MURDOCK
--- NOTE | 2017-04-02 14:31 | CONSULT ---
Consult - text type - Consultation Consultation Note: Thoracic Surgery Consult: Pt well-known to me. S/P LVATS for empyema 04/10/2016. Now with hemoptysis. Apparently had some in the past prior to 2016 surgery. Did not have any at time of surgery. Not severe at this point. Also c/o hemoptysis after feeds. Plan on Bronch/EGD tomorrow. Please medically clear for this if necessary.
--- NOTE | 2017-04-02 16:59 | PN ---
Progress Note, Physician Chief Complaint: Mr Nash says the hemoptysis is less today. Denies cp, sob, n/v. - Current Medication List Current Medications: Active Medications Acetaminophen (Tylenol -) 325 mg PO Q6H PRN PRN Reason: PAIN OR FEVER Albuterol/Ipratropium (Duoneb -) 1 amp NEB Q4HWA [facility] Last Admin: 04/02/17 14:35 Dose: 1 amp Diazepam (Valium -) 5 mg PEG Q8H PRN Last Admin: 04/02/17 10:20 Dose: 5 mg Docusate Sodium (Colace Liquid -) 200 mg PO DAILY PRN PRN Reason: CONSTIPATION CEFTRIAXONE 1 G/50 ML PREMIX (Ceftriaxone 1 Gm-D5w Bag) 50 mls @ 100 mls/hr IVPB [facility] Last Admin: 04/01/17 21:15 Dose: 100 mls/hr Amino Acids (Clinimix -) 1,000 mls @ 84 mls/hr IV Q12H [facility] Last Admin: 04/02/17 05:22 Dose: 84 mls/hr Methylprednisolone Sodium Succinate (Solu-Medrol -) 40 mg IVPUSH BID [facility] Last Admin: 04/02/17 10:20 Dose: 40 mg Oxybutynin Chloride (Ditropan -) 10 mg PO DAILY [facility] Last Admin: 04/02/17 10:20 Dose: 10 mg Pantoprazole Sodium (Protonix Iv) 40 mg IVPUSH DAILY [facility] Last Admin: 04/02/17 10:20 Dose: 40 mg Senna (Senna Oral Solution -) 8.8 mg PO [facility] Last Admin: 04/01/17 21:20 Dose: Not Given Tramadol HCl (Ultram -) 50 mg PO Q8H PRN PRN Reason: PAIN Last Admin: 04/01/17 16:19 Dose: 50 mg - Objective Vital Signs: Vital Signs Temperature 36.8 C 04/02/17 15:53 Pulse Rate 71 04/02/17 15:53 Respiratory Rate 18 04/02/17 15:53 Blood Pressure 97/58 04/02/17 15:53 O2 Sat by Pulse Oximetry (%) 97 04/02/17 09:00 Constitutional: Yes: No Distress, Calm, Thin Cardiovascular: Yes: Regular Rate and Rhythm. No: Gallop, Murmur, Rub Respiratory: Yes: Regular, CTA Bilaterally. No: Rales, Rhonchi, Wheezes Gastrointestinal: Yes: Normal Bowel Sounds, Soft. No: Distention, Tenderness Extremities: Yes: WNL Edema: No Labs: CBC, BMP 04/02/17 09:55 04/02/17 09:55 INR, PTT INR 1.02 (0.82-1.09) 03/29/17 07:00 Problem List - Problems (1) Hemoptysis Code(s): R04.2 - HEMOPTYSIS (2) COPD (chronic obstructive pulmonary disease) Code(s): J44.9 - CHRONIC OBSTRUCTIVE PULMONARY DISEASE, UNSPECIFIED Qualifiers: COPD type: COPD with acute exacerbation Qualified Code(s): J44.1 - Chronic obstructive pulmonary disease with (acute) exacerbation (3) Suprapubic catheter Code(s): Z93.59 - OTHER CYSTOSTOMY STATUS (4) Protein-calorie malnutrition, severe Code(s): E43 - UNSPECIFIED SEVERE PROTEIN-CALORIE MALNUTRITION Assessment/Plan (1) Hemoptysis Assessment/Plan: -case d/w Dr Power -planning for bronchoscopy and EGD tomorrow -much less today Code(s): R04.2 - HEMOPTYSIS (2) COPD (chronic obstructive pulmonary disease) Assessment/Plan: -exacerbation with hemoptysis -continue solumedrol -continue bronchodilators -continue rocephin Code(s): J44.9 - CHRONIC OBSTRUCTIVE PULMONARY DISEASE, UNSPECIFIED Qualifiers: COPD type: COPD with acute exacerbation Qualified Code(s): J44.1 - Chronic obstructive pulmonary disease with (acute) exacerbation (3) Suprapubic catheter Assessment/Plan: -changed by urology Code(s): Z93.59 - OTHER CYSTOSTOMY STATUS (4) Protein-calorie malnutrition, severe Assessment/Plan: -patient states TF causing hemoptysis -d/w patient multiple times, however often refuses or severely limits his intake -on clinimix currently Code(s): E43 - UNSPECIFIED SEVERE PROTEIN-CALORIE MALNUTRITION
[2017-04-02] MEDS ORDERED: PT OWN MED DRAWER 7, Y5N ONE (21:11)
[2017-04-02] MEDS: CEFTRIAXONE 1 G/50 ML PREMIX 50 ML IVPB SCH (21:14)
[2017-04-02] MEDS: SENNOSIDES 8.8 MG/5 ML BULK BOTTLE PO SCH (21:14)
[2017-04-03] MEDS: AMINO ACIDS 4.25%/D5W 1,000 ML IV SCH ×3 (05:58→22:03)
[2017-04-03] MEDS: ALBUTEROL SO4 2.5/IPRATROPIUM 0.5 INH SOL 3 ML VIAL.NEB. NEB SCH ×5 (06:00→22:15)
[2017-04-03 07:55] LABS: BASOPHIL 0.1 % (0-2.0); MCH 31.9 pg (25.7-33.7); MCHC 33.3 g/dl (32.0-35.9); MEAN CELL VOLUME 95.6 fl (80-96); MEAN PLT VOLUME 8.8 fl (7.5-11.1); NEUTROPHILS 82.6 % (42.8-82.8); PLATELET COUNT 226 K/MM3 (134-434); RDW 12.3 % (11.9-15.9); WHITE BLOOD COUNT 7.9 K/mm3 (4.0-10.0)
[2017-04-03 08:29] LABS: ANION GAP 8 (8-16); CALCIUM 8.3 mg/dL (8.5-10.1); CO2 27 mmol/L (21-32); CREATININE 0.5 mg/dL (0.7-1.3); GLUCOSE,RANDOM 105 mg/dL (74-106); MAGNESIUM 2.5 mg/dL (1.8-2.4); PHOSPHOROUS 2.7 mg/dL (2.5-4.9)
[2017-04-03] MEDS: OXYBUTYNIN CHLORIDE 5 MG TABLET PO SCH (10:15)
[2017-04-03] MEDS: PANTOPRAZOLE SODIUM 40 MG VIAL IVPUSH SCH (10:36)
[2017-04-03] MEDS: methylPREDNISolone NA SUCC 40 MG/1 ML VIAL IVPUSH SCH ×2 (10:36→21:40)
--- NOTE | 2017-04-03 12:41 | PN ---
Progress Note (short form) - Note Progress Note: PULMONARY APPEARS STABLE NO CHANGE IN EXAM LESS HEMOPTYSIS LABS/MEDS/NOTES REVIEWED Hemoptysis resolving COPD Bronchiectasis Dystonia HTN Neurogenic Bladder Suprapubic Catheter GERD - continue medrol - antibiotics - inhaled bronchodilators - O2 as needed - mechanical DVT prophylaxis - codeine - will have FOB via T-Surg today Bryan GAYTAN MD
[2017-04-03] MEDS ORDERED: MIDAZOLAM HCL 2 MG/2 ML SINGLE DOSE VIAL ONE (13:05)
[2017-04-03] MEDS ORDERED: PROPOFOL 20 ML ONE (13:06)
[2017-04-03] MEDS ORDERED: SUCCINYLCHOLINE CHLORIDE 200 MG/10 ML VIAL ONE (13:08)
[2017-04-03] MEDS ORDERED: ePHEDrine SULFATE 50 MG/1 ML AMPULE ONE (13:08)
[2017-04-03] MEDS ORDERED: EPINEPHrine/PF 1 MG/1 ML (1:1,000) AMPULE ONE ×2 (13:29→13:36)
[2017-04-03] MEDS ORDERED: LIDOCAINE HCL 1%, 10 MG/ML (20ML VIAL) ONE (13:36)
[2017-04-03] MEDS ORDERED: DEXAMETHASONE SOD PHOSPHATE 4 MG/1 ML VIAL ONE (13:44)
[2017-04-03] MEDS ORDERED: LIDOCAINE HCL 1%, 10 MG/ML (20ML VIAL) INF ONE (13:48)
[2017-04-03] MEDS ORDERED: LACTATED RINGERS SOLUTION 1,000 ML IV SCH ×2 (14:30→15:02)
[2017-04-03] MEDS ORDERED: ACETAMINOPHEN 325 MG TABLET (FP) PO PRN (15:02)
[2017-04-03] MEDS ORDERED: traMADol HCL 50 MG TABLET PO PRN (15:02)
--- NOTE | 2017-04-03 15:03 | OP ---
Operative Note - Note: Operative Date: 04/03/17 Pre-Operative Diagnosis: Hemoptysis Operation: EGD and bronchoscopy Findings: EGD: mild duodenitis, no gastritis or esophagitis, no blood in UGI tract; Bronchoscopy: no blood in airway including lingula at this time. Surgeon: Bj Power Anesthesiologist/[employer] COORDINATOR: Yosef Muñiz Anesthesia: General Operative Report Dictated: Yes
--- NOTE | 2017-04-03 16:27 | PN ---
Progress Note, Physician Chief Complaint: Mr Nash has minimal hemoptysis. Denies cp, sob, n/v. - Current Medication List Current Medications: Active Medications Acetaminophen (Tylenol -) 325 mg PO Q6H PRN PRN Reason: PAIN OR FEVER Albuterol/Ipratropium (Duoneb -) 1 amp NEB Q4HWA [facility] Diazepam (Valium -) 5 mg PEG Q8H PRN Docusate Sodium (Colace Liquid -) 200 mg PO DAILY PRN PRN Reason: CONSTIPATION Fentanyl (Sublimaze Injection -) 25 mcg IVPUSH [id number] PRN PRN Reason: PAIN CEFTRIAXONE 1 G/50 ML PREMIX (Ceftriaxone 1 Gm-D5w Bag) 50 mls @ 100 mls/hr IVPB HS [facility] Amino Acids (Clinimix -) 1,000 mls @ 84 mls/hr IV Q12H [facility] Lactated Ringer's (Lactated Ringers Solution) 1,000 mls @ 75 mls/hr IV ASDIR [facility] Methylprednisolone Sodium Succinate (Solu-Medrol -) 40 mg IVPUSH BID [facility] Oxybutynin Chloride (Ditropan -) 10 mg PO DAILY [facility] Pantoprazole Sodium (Protonix Iv) 40 mg IVPUSH DAILY [facility] Senna (Senna Oral Solution -) 8.8 mg PO HS [facility] Tramadol HCl (Ultram -) 50 mg PO Q8H PRN PRN Reason: PAIN - Objective Vital Signs: Vital Signs Temperature 36.6 C 04/03/17 15:00 Pulse Rate 57 L 04/03/17 15:00 Respiratory Rate 18 04/03/17 15:00 Blood Pressure 101/68 04/03/17 15:00 O2 Sat by Pulse Oximetry (%) 96 04/03/17 14:45 Constitutional: Yes: No Distress, Calm, Thin Cardiovascular: Yes: Regular Rate and Rhythm. No: Gallop, Murmur, Rub Respiratory: Yes: Regular, CTA Bilaterally. No: Rales, Rhonchi, Wheezes Gastrointestinal: Yes: Normal Bowel Sounds, Soft. No: Distention, Tenderness Extremities: Yes: WNL Edema: No Labs: CBC, BMP 04/03/17 06:10 04/03/17 06:10 INR, PTT INR 1.02 (0.82-1.09) 03/29/17 07:00 Problem List - Problems (1) Hemoptysis Code(s): R04.2 - HEMOPTYSIS (2) COPD (chronic obstructive pulmonary disease) Code(s): J44.9 - CHRONIC OBSTRUCTIVE PULMONARY DISEASE, UNSPECIFIED Qualifiers: COPD type: COPD with acute exacerbation Qualified Code(s): J44.1 - Chronic obstructive pulmonary disease with (acute) exacerbation (3) Suprapubic catheter Code(s): Z93.59 - OTHER CYSTOSTOMY STATUS (4) Protein-calorie malnutrition, severe Code(s): E43 - UNSPECIFIED SEVERE PROTEIN-CALORIE MALNUTRITION Assessment/Plan (1) Hemoptysis Assessment/Plan: -case d/w Dr Power -planning for bronchoscopy and EGD today -follow up results Code(s): R04.2 - HEMOPTYSIS (2) COPD (chronic obstructive pulmonary disease) Assessment/Plan: -exacerbation with hemoptysis, hemoptysis improving -continue solumedrol -continue bronchodilators -continue rocephin Code(s): J44.9 - CHRONIC OBSTRUCTIVE PULMONARY DISEASE, UNSPECIFIED Qualifiers: COPD type: COPD with acute exacerbation Qualified Code(s): J44.1 - Chronic obstructive pulmonary disease with (acute) exacerbation (3) Suprapubic catheter Assessment/Plan: -changed by urology Code(s): Z93.59 - OTHER CYSTOSTOMY STATUS (4) Protein-calorie malnutrition, severe Assessment/Plan: -patient states TF causing hemoptysis -d/w patient multiple times, however often refuses or severely limits his intake -on clinimix currently -will place back on his TF prior to discharge Code(s): E43 - UNSPECIFIED SEVERE PROTEIN-CALORIE MALNUTRITION
--- NOTE | 2017-04-03 16:40 | OPR ---
Patient Name: Alvino Nash MR#: [id number] Procedure Date: 04/03/17 Preoperative Diagnosis: Hemoptysis Postoperative Diagnosis: same. Procedure: 1. Flexible Bronchoscopy; 2. EGD. Indication: Above; Surgeon(s): Bj Power MD Cosurgeon: bobbi Bindery Worker Surgeon: bobbi Anesthesia: general; Findings: EGD: mild duodenitis, hiatal hernia; no blood. Bronchoscopy: No blood in airway. Cultures sent from lingual. Specimens Sent: 1. BAL cultures. Complications: None. Drains / Tubes / Catheters: na Hardware / Implants: na Blood / Fluid Losses: none. Post-Operative Condition: hemodynamically stable. Indications: This patient is a 61 year-old male referred from Dr. Garcia for hemoptysis. An informed consent was obtained to investigate the GI tract via EGD and the airway for future localization. All questions were addressed and answered. Details of Procedure: The procedure was done in the OR. He was given intravenous sedation and intubated. An EGD was done and no blood was apparent. There was mild duodenitis and the PEG was visualized. Next the bronchoscopy was performed. There was no blood in the airway. Lingular washings were sent for culture. He was awakened and he tolerated the procedure well.
[2017-04-03] MEDS ORDERED: PT OWN MED DRAWER 7, Y5N ONE (20:47)
[2017-04-03] MEDS: SENNOSIDES 8.8 MG/5 ML BULK BOTTLE PO SCH (21:05)
[2017-04-03] MEDS: diazePAM 5 MG TABLET PEG PRN (21:05)
[2017-04-03] MEDS: CEFTRIAXONE 1 G/50 ML PREMIX 50 ML IVPB SCH (21:05)
[2017-04-04 07:03] LABS: BASOPHIL 0.1 % (0-2.0); MCH 32.1 pg (25.7-33.7); MCHC 33.6 g/dl (32.0-35.9); MEAN CELL VOLUME 95.5 fl (80-96); MEAN PLT VOLUME 8.5 fl (7.5-11.1); NEUTROPHILS 85.2 % (42.8-82.8); PLATELET COUNT 238 K/MM3 (134-434); RDW 12.6 % (11.9-15.9); WHITE BLOOD COUNT 9.4 K/mm3 (4.0-10.0)
[2017-04-04 07:22] LABS: ANION GAP 7 (8-16); CALCIUM 8.5 mg/dL (8.5-10.1); CO2 29 mmol/L (21-32); GLUCOSE,RANDOM 112 mg/dL (74-106); MAGNESIUM 2.5 mg/dL (1.8-2.4)
[2017-04-04 07:23] LABS: CREATININE 0.7 mg/dL (0.7-1.3); PHOSPHOROUS 3.3 mg/dL (2.5-4.9)
[2017-04-04] MEDS: ALBUTEROL SO4 2.5/IPRATROPIUM 0.5 INH SOL 3 ML VIAL.NEB. NEB SCH ×5 (07:49→22:03)
[2017-04-04] MEDS: diazePAM 5 MG TABLET PEG PRN ×2 (11:04→21:09)
[2017-04-04] MEDS: OXYBUTYNIN CHLORIDE 5 MG TABLET PO SCH (11:04)
[2017-04-04] MEDS: PANTOPRAZOLE SODIUM 40 MG VIAL IVPUSH SCH (11:05)
[2017-04-04] MEDS: methylPREDNISolone NA SUCC 40 MG/1 ML VIAL IVPUSH SCH (11:05)
--- NOTE | 2017-04-04 11:17 | PN ---
Progress Note (short form) - Note Progress Note: PULMONARY s/p bronchoscopy/EGD without evidence of bleeding. Some hemoptysis this AM but much less. Last Vital Signs Temp Pulse Resp BP Pulse Ox 97.9 F 70 18 102/69 96 04/04/17 06:00 04/04/17 06:00 04/04/17 06:00 04/04/17 06:00 04/03/17 21:00 Gen: NAD at rest Heart: RRR Lung: decreased breath sounds at the bases Abd: soft, nontender Ext: no edema CBC, BMP 04/04/17 06:20 04/04/17 06:20 Active Medications Acetaminophen (Tylenol -) 325 mg PO Q6H PRN PRN Reason: PAIN OR FEVER Albuterol/Ipratropium (Duoneb -) 1 amp NEB Q4HWA [facility] Last Admin: 04/04/17 10:00 Dose: 1 amp Diazepam (Valium -) 5 mg PEG Q8H PRN Last Admin: 04/04/17 11:04 Dose: 5 mg Docusate Sodium (Colace Liquid -) 200 mg PO DAILY PRN PRN Reason: CONSTIPATION Fentanyl (Sublimaze Injection -) 25 mcg IVPUSH [id number] PRN PRN Reason: PAIN CEFTRIAXONE 1 G/50 ML PREMIX (Ceftriaxone 1 Gm-D5w Bag) 50 mls @ 100 mls/hr IVPB [facility] Last Admin: 04/03/17 21:05 Dose: 100 mls/hr Amino Acids (Clinimix -) 1,000 mls @ 84 mls/hr IV Q12H [facility] Last Admin: 04/03/17 22:03 Dose: 84 mls/hr Lactated Ringer's (Lactated Ringers Solution) 1,000 mls @ 75 mls/hr IV ASDIR [facility] Methylprednisolone Sodium Succinate (Solu-Medrol -) 40 mg IVPUSH BID [facility] Last Admin: 04/04/17 11:05 Dose: 40 mg Oxybutynin Chloride (Ditropan -) 10 mg PO DAILY [facility] Last Admin: 04/04/17 11:04 Dose: 10 mg Pantoprazole Sodium (Protonix Iv) 40 mg IVPUSH DAILY [facility] Last Admin: 04/04/17 11:05 Dose: 40 mg Senna (Senna Oral Solution -) 8.8 mg PO [facility] Last Admin: 04/03/17 21:05 Dose: 8.8 mg Tramadol HCl (Ultram -) 50 mg PO Q8H PRN PRN Reason: PAIN A/P Hemoptysis COPD Bronchiectasis Dystonia HTN Neurogenic Bladder Suprapubic Catheter GERD - hemoptysis appears to be resolving, may need embolization vs lingula resection if continues to have mee hemoptysis - will decrease medrol to daily dosing - continue antibiotics - inhaled bronchodilators - O2 as needed - mechanical DVT prophylaxis - will need outpt f/u of lung nodules
--- NOTE | 2017-04-04 12:43 | PN ---
Progress Note, Physician Chief Complaint: Mr Nash complains of sore throat secondary to procedures. No cp, sob, n/v. - Current Medication List Current Medications: Active Medications Acetaminophen (Tylenol -) 325 mg PO Q6H PRN PRN Reason: PAIN OR FEVER Albuterol/Ipratropium (Duoneb -) 1 amp NEB Q4HWA [facility] Last Admin: 04/04/17 10:00 Dose: 1 amp Diazepam (Valium -) 5 mg PEG Q8H PRN Last Admin: 04/04/17 11:04 Dose: 5 mg Docusate Sodium (Colace Liquid -) 200 mg PO DAILY PRN PRN Reason: CONSTIPATION Fentanyl (Sublimaze Injection -) 25 mcg IVPUSH [id number] PRN PRN Reason: PAIN CEFTRIAXONE 1 G/50 ML PREMIX (Ceftriaxone 1 Gm-D5w Bag) 50 mls @ 100 mls/hr IVPB [facility] Last Admin: 04/03/17 21:05 Dose: 100 mls/hr Amino Acids (Clinimix -) 1,000 mls @ 84 mls/hr IV Q12H [facility] Last Admin: 04/03/17 22:03 Dose: 84 mls/hr Lactated Ringer's (Lactated Ringers Solution) 1,000 mls @ 75 mls/hr IV ASDIR [facility] Methylprednisolone Sodium Succinate (Solu-Medrol -) 40 mg IVPUSH DAILY [facility] Oxybutynin Chloride (Ditropan -) 10 mg PO DAILY [facility] Last Admin: 04/04/17 11:04 Dose: 10 mg Pantoprazole Sodium (Protonix Iv) 40 mg IVPUSH DAILY [facility] Last Admin: 04/04/17 11:05 Dose: 40 mg Senna (Senna Oral Solution -) 8.8 mg PO [facility] Last Admin: 04/03/17 21:05 Dose: 8.8 mg Tramadol HCl (Ultram -) 50 mg PO Q8H PRN PRN Reason: PAIN - Objective Vital Signs: Vital Signs Temperature 36.6 C 04/04/17 06:00 Pulse Rate 70 04/04/17 06:00 Respiratory Rate 18 04/04/17 06:00 Blood Pressure 102/69 04/04/17 06:00 O2 Sat by Pulse Oximetry (%) 96 04/03/17 21:00 Constitutional: Yes: No Distress, Calm, Thin Cardiovascular: Yes: Regular Rate and Rhythm. No: Gallop, Murmur, Rub Respiratory: Yes: Regular, CTA Bilaterally. No: Rales, Rhonchi, Wheezes Gastrointestinal: Yes: Normal Bowel Sounds, Soft. No: Distention, Tenderness Extremities: Yes: WNL Edema: No Labs: CBC, BMP 04/04/17 06:20 04/04/17 06:20 INR, PTT INR 1.02 (0.82-1.09) 03/29/17 07:00 Problem List - Problems (1) Hemoptysis Code(s): R04.2 - HEMOPTYSIS (2) COPD (chronic obstructive pulmonary disease) Code(s): J44.9 - CHRONIC OBSTRUCTIVE PULMONARY DISEASE, UNSPECIFIED Qualifiers: COPD type: COPD with acute exacerbation Qualified Code(s): J44.1 - Chronic obstructive pulmonary disease with (acute) exacerbation (3) Suprapubic catheter Code(s): Z93.59 - OTHER CYSTOSTOMY STATUS (4) Protein-calorie malnutrition, severe Code(s): E43 - UNSPECIFIED SEVERE PROTEIN-CALORIE MALNUTRITION Assessment/Plan (1) Hemoptysis Assessment/Plan: -case d/w Dr Lauren -s/p bronchoscopy and EGD without obvious source of bleeding -monitor Code(s): R04.2 - HEMOPTYSIS (2) COPD (chronic obstructive pulmonary disease) Assessment/Plan: -exacerbation with hemoptysis, hemoptysis improving -titrate medrol per Dr Lauren -continue bronchodilators -continue rocephin Code(s): J44.9 - CHRONIC OBSTRUCTIVE PULMONARY DISEASE, UNSPECIFIED Qualifiers: COPD type: COPD with acute exacerbation Qualified Code(s): J44.1 - Chronic obstructive pulmonary disease with (acute) exacerbation (3) Suprapubic catheter Assessment/Plan: -changed by urology Code(s): Z93.59 - OTHER CYSTOSTOMY STATUS (4) Protein-calorie malnutrition, severe Assessment/Plan: -patient states TF causing hemoptysis -d/w patient multiple times, however often refuses or severely limits his intake -attempt to change back to tube feeds tomorrow Code(s): E43 - UNSPECIFIED SEVERE PROTEIN-CALORIE MALNUTRITION
[2017-04-04] MEDS: AMINO ACIDS 4.25%/D5W 1,000 ML IV SCH (15:00)
[2017-04-04] MEDS ORDERED: PT OWN MED DRAWER 7, Y5N ONE (21:07)
[2017-04-04] MEDS: CEFTRIAXONE 1 G/50 ML PREMIX 50 ML IVPB SCH (21:09)
[2017-04-04] MEDS: SENNOSIDES 8.8 MG/5 ML BULK BOTTLE PO SCH (21:09)
[2017-04-05] MEDS: AMINO ACIDS 4.25%/D5W 1,000 ML IV SCH ×3 (01:09→07:36)
[2017-04-05] MEDS: ALBUTEROL SO4 2.5/IPRATROPIUM 0.5 INH SOL 3 ML VIAL.NEB. NEB SCH ×4 (10:30→22:34)
[2017-04-05] MEDS: diazePAM 5 MG TABLET PEG PRN ×2 (10:31→21:16)
[2017-04-05] MEDS: methylPREDNISolone NA SUCC 40 MG/1 ML VIAL IVPUSH SCH (10:31)
[2017-04-05] MEDS: OXYBUTYNIN CHLORIDE 5 MG TABLET PO SCH (10:31)
[2017-04-05] MEDS: PANTOPRAZOLE SODIUM 40 MG VIAL IVPUSH SCH (10:31)
--- NOTE | 2017-04-05 11:26 | PN ---
DATE OF VISIT: DATE OF DICTATION: 04/05/2017 The patient underwent suprapubic tube change on April 01, 2017. He had a benign and an uneventful postprocedure course. His Bagley is patent. His urine is clear. He still complains of generalized body pain, as well as hemoptysis. He underwent a bronchoscopy. There was no evidence of bleeding. Presently, his blood pressure is 102/69, temperature is 97. His white count is 9.4, hemoglobin and hematocrit is 12.6/37.5, platelets were 238. BUN and creatinine were 21/0.7. We will continue with the oxybutynin for his bladder spasms. We will also recommend vitamin C to keep his urine acetic. Will recommend daily irrigation of his suprapubic Bagley with 0.25% acetic acid solution. This can be done once daily while in the alf. NATALIA GODINEZ M.D. [id number]
--- NOTE | 2017-04-05 11:34 | CONS ---
DATE OF CONSULTATION: 03/31/2017 HISTORY: The patient is a 61-year-old male who was admitted to the hospital with hemoptysis secondary to bronchiectasia. The patient is status post cervical fusion due to a cervical fracture. He also has a neurogenic bladder and a suprapubic tube. The patient does have a history of asthma, COPD. He is on constant CO2. He does have a history of GERD, hypertension, carpal tunnel. He states for the past few days he has been coughing up blood. He also states that he has seen blood leaving the PEG tube. He has been intermittently coughing. The patient also complains of wheezing, lightheadedness, and dysphagia. He feels stuffy nose. He does have suprapubic pain at the site of the suprapubic tract. He denies any fever, chills, or shortness of breath. He was recently hospitalized in December for a pulmonary infection. He underwent a fiberoptic bronchoscopy and endobronchial washings and biopsy, which were negative. He denies any recent travel. He denies any smoking. Denies any ethanolism. He has undergone the G-tube, the suprapubic catheter, and the cervical laminectomy in the past. He does have a history of prostatism prior to the suprapubic tube including overflow incontinence, frequency, dysuria, and urgency. He also has a history of sleep apnea. ALLERGIES: The patient is allergic to several medications including IODINE, KIWI, LATEX, SHELLFISH, AMPICILLIN, SULBACTAM ANTIBIOTICS FROM [facility], and SULFA. DIAGNOSTIC DATA: On admission, his white count was 7.9, hemoglobin 13.3, hematocrit 38.8, platelets 210. PHYSICAL EXAMINATION: General: The patient appears to be very thin and cachectic. Abdomen: His PEG is intact. His suprapubic tube reveals the tract to be stenosed with overlying granulation tissue, which is bleeding and crusting. His abdomen is soft. Pulmonary consult is being obtained. Patient has been on IV Rocephin. He also continues to be on Tramadol for generalized muscle pain, Senna and Colace for his constipation, and Oxybutynin and anticholinergic for his bladder spasms. He also is on Ventolin and albuterol for his bronchial spasms. IMPRESSION: At present is this malfunctioning of suprapubic tube. PLAN: We will plan on placing tube in the a.m. We will get tray to bedside. Walt LARSON/[id number]
--- NOTE | 2017-04-05 12:22 | PN ---
Progress Note, Physician Chief Complaint: Mr Nash says he is doing better. Says his throat is less sore today. No further hemoptysis. Denies cp, sob, n/v. - Current Medication List Current Medications: Active Medications Acetaminophen (Tylenol -) 325 mg PO Q6H PRN PRN Reason: PAIN OR FEVER Albuterol/Ipratropium (Duoneb -) 1 amp NEB Q4HWA [facility] Last Admin: 04/05/17 10:30 Dose: 1 amp Diazepam (Valium -) 5 mg PEG Q8H PRN Last Admin: 04/05/17 10:31 Dose: 5 mg Docusate Sodium (Colace Liquid -) 200 mg PO DAILY PRN PRN Reason: CONSTIPATION Fentanyl (Sublimaze Injection -) 25 mcg IVPUSH [id number] PRN PRN Reason: PAIN CEFTRIAXONE 1 G/50 ML PREMIX (Ceftriaxone 1 Gm-D5w Bag) 50 mls @ 100 mls/hr IVPB [facility] Last Admin: 04/04/17 21:09 Dose: 100 mls/hr Lactated Ringer's (Lactated Ringers Solution) 1,000 mls @ 75 mls/hr IV ASDIR [facility] Methylprednisolone Sodium Succinate (Solu-Medrol -) 40 mg IVPUSH DAILY [facility] Last Admin: 04/05/17 10:31 Dose: 40 mg Oxybutynin Chloride (Ditropan -) 10 mg PO DAILY [facility] Last Admin: 04/05/17 10:31 Dose: 10 mg Pantoprazole Sodium (Protonix Iv) 40 mg IVPUSH DAILY [facility] Last Admin: 04/05/17 10:31 Dose: 40 mg Senna (Senna Oral Solution -) 8.8 mg PO [facility] Last Admin: 04/04/17 21:09 Dose: 8.8 mg Tramadol HCl (Ultram -) 50 mg PO Q8H PRN PRN Reason: PAIN Last Admin: 04/05/17 00:53 Dose: 50 mg - Objective Vital Signs: Vital Signs Temperature 36.4 C L 04/05/17 06:00 Pulse Rate 57 L 04/05/17 06:00 Respiratory Rate 20 04/05/17 09:00 Blood Pressure 106/67 04/05/17 06:00 O2 Sat by Pulse Oximetry (%) 96 04/05/17 09:00 Constitutional: Yes: No Distress, Calm, Thin Cardiovascular: Yes: Regular Rate and Rhythm. No: Gallop, Murmur, Rub Respiratory: Yes: Regular, CTA Bilaterally. No: Rales, Rhonchi, Wheezes Gastrointestinal: Yes: Normal Bowel Sounds, Soft. No: Distention, Tenderness Extremities: Yes: WNL Edema: No Labs: CBC, BMP 04/04/17 06:20 04/04/17 06:20 INR, PTT INR 1.02 (0.82-1.09) 03/29/17 07:00 Problem List - Problems (1) Hemoptysis Code(s): R04.2 - HEMOPTYSIS (2) COPD (chronic obstructive pulmonary disease) Code(s): J44.9 - CHRONIC OBSTRUCTIVE PULMONARY DISEASE, UNSPECIFIED Qualifiers: COPD type: COPD with acute exacerbation Qualified Code(s): J44.1 - Chronic obstructive pulmonary disease with (acute) exacerbation (3) Suprapubic catheter Code(s): Z93.59 - OTHER CYSTOSTOMY STATUS (4) Protein-calorie malnutrition, severe Code(s): E43 - UNSPECIFIED SEVERE PROTEIN-CALORIE MALNUTRITION Assessment/Plan (1) Hemoptysis Assessment/Plan: -currently resolved -monitor Code(s): R04.2 - HEMOPTYSIS (2) COPD (chronic obstructive pulmonary disease) Assessment/Plan: -exacerbation with hemoptysis, hemoptysis currently resolved -titrate medrol per pulmonary -continue bronchodilators -continue rocephin Code(s): J44.9 - CHRONIC OBSTRUCTIVE PULMONARY DISEASE, UNSPECIFIED Qualifiers: COPD type: COPD with acute exacerbation Qualified Code(s): J44.1 - Chronic obstructive pulmonary disease with (acute) exacerbation (3) Suprapubic catheter Assessment/Plan: -changed by urology Code(s): Z93.59 - OTHER CYSTOSTOMY STATUS (4) Protein-calorie malnutrition, severe Assessment/Plan: -restart TF today -begin low and titrate up -Jevity 1.5 with goal of 75ml/hr for 16 hours with 30ml H2O with this per nutrition note Code(s): E43 - UNSPECIFIED SEVERE PROTEIN-CALORIE MALNUTRITION
--- NOTE | 2017-04-05 15:16 | PN ---
Progress Note (short form) - Note Progress Note: PULMONARY APPEARS STABLE NO CHANGE IN EXAM LESS HEMOPTYSIS LABS/MEDS/NOTES REVIEWED FOB/EGD UNREVEALING Hemoptysis resolving COPD Bronchiectasis Dystonia HTN Neurogenic Bladder Suprapubic Catheter GERD - will change medrol to oral prednisone - antibiotics - inhaled bronchodilators - O2 as needed - mechanical DVT prophylaxis - sadie GAYTAN MD
[2017-04-05] MEDS ORDERED: PT OWN MED DRAWER 7, Y5N ONE (21:08)
[2017-04-05] MEDS: SENNOSIDES 8.8 MG/5 ML BULK BOTTLE PO SCH (21:18)
[2017-04-05] MEDS: CEFTRIAXONE 1 G/50 ML PREMIX 50 ML IVPB SCH (21:18)
[2017-04-05] MEDS: DOCUSATE NA 100 MG/10 ML UNIT-DOSE CUPS PO PRN (21:24)
[2017-04-06] MEDS: ALBUTEROL SO4 2.5/IPRATROPIUM 0.5 INH SOL 3 ML VIAL.NEB. NEB SCH ×5 (07:08→23:30)
[2017-04-06 07:48] LABS: MCH 32.1 pg (25.7-33.7); MCHC 33.6 g/dl (32.0-35.9); MEAN CELL VOLUME 95.6 fl (80-96); MEAN PLT VOLUME 8.4 fl (7.5-11.1); PLATELET COUNT 246 K/MM3 (134-434); RDW 12.6 % (11.9-15.9); WHITE BLOOD COUNT 10.8 K/mm3 (4.0-10.0)
[2017-04-06 08:55] LABS: ANION GAP 7 (8-16); CALCIUM 8.4 mg/dL (8.5-10.1); CO2 30 mmol/L (21-32); CREATININE 0.6 mg/dL (0.7-1.3); GLUCOSE,RANDOM 78 mg/dL (74-106); MAGNESIUM 2.6 mg/dL (1.8-2.4); PHOSPHOROUS 3.4 mg/dL (2.5-4.9)
[2017-04-06] MEDS: diazePAM 5 MG TABLET PEG PRN ×2 (09:57→21:27)
[2017-04-06] MEDS: OXYBUTYNIN CHLORIDE 5 MG TABLET PO SCH (09:57)
[2017-04-06] MEDS: PANTOPRAZOLE SODIUM 40 MG VIAL IVPUSH SCH (09:57)
[2017-04-06 09:58] LABS: TOTAL CELLS COUNTED 100
[2017-04-06 09:59] LABS: PLATELET ESTIMATE ADEQUATE
[2017-04-06] MEDS: methylPREDNISolone NA SUCC 40 MG/1 ML VIAL IVPUSH SCH (11:21)
--- NOTE | 2017-04-06 11:53 | PN ---
Progress Note (short form) - Note Progress Note: s/p spt doing well patent spt pt needs spt changed q 6w f/u in office upon d/c
--- NOTE | 2017-04-06 14:08 | PN ---
Progress Note, Physician Chief Complaint: Feels improved less Hemoptysis History of Present Illness: 61 yo M with PMH of chronic hemoptysis possibly due to bronchiectasis, cervical fusion s/p fracture, dystonia s/p cervical fracture, neurogenic bladder with suprapubic catheter, asthma, COPD, GERD, HTN, presented with worsening hemoptysis 03/29/2017. - Current Medication List Current Medications: Active Medications Acetaminophen (Tylenol -) 325 mg PO Q6H PRN PRN Reason: PAIN OR FEVER Albuterol/Ipratropium (Duoneb -) 1 amp NEB Q4HWA [facility] Last Admin: 04/06/17 13:57 Dose: 1 amp Diazepam (Valium -) 5 mg PEG Q8H PRN Last Admin: 04/06/17 09:57 Dose: 5 mg Docusate Sodium (Colace Liquid -) 200 mg PO DAILY PRN PRN Reason: CONSTIPATION Last Admin: 04/05/17 21:24 Dose: 200 mg Fentanyl (Sublimaze Injection -) 25 mcg IVPUSH [id number] PRN PRN Reason: PAIN CEFTRIAXONE 1 G/50 ML PREMIX (Ceftriaxone 1 Gm-D5w Bag) 50 mls @ 100 mls/hr IVPB HS [facility] Last Admin: 04/05/17 21:18 Dose: 100 mls/hr Lactated Ringer's (Lactated Ringers Solution) 1,000 mls @ 75 mls/hr IV ASDIR [facility] Oxybutynin Chloride (Ditropan -) 10 mg PO DAILY [facility] Last Admin: 04/06/17 09:57 Dose: 10 mg Pantoprazole Sodium (Protonix Iv) 40 mg IVPUSH DAILY [facility] Last Admin: 04/06/17 09:57 Dose: 40 mg Prednisone (Deltasone -) 30 mg PO DAILY [facility] Senna (Senna Oral Solution -) 8.8 mg PO HS [facility] Last Admin: 04/05/17 21:18 Dose: 8.8 mg Tramadol HCl (Ultram -) 50 mg PO Q8H PRN PRN Reason: PAIN Last Admin: 04/05/17 00:53 Dose: 50 mg - Objective Vital Signs: Vital Signs Temperature 98.0 F 04/06/17 06:00 Pulse Rate 60 04/06/17 06:00 Respiratory Rate 18 04/06/17 09:00 Blood Pressure 114/66 04/06/17 06:00 O2 Sat by Pulse Oximetry (%) 96 04/06/17 09:00 Elderly M looks comfortable feels improved still having blood tinged sputum HEENT: Mm moist, no anemia, PERRLA, EOMI NECK; No JVD No Bruit, Thyroid Central CHEST: B/L crepts CVS: S1S2 R no m/g/r ABD: No distention, non tender BS + EXT: Trace edema feet, no calf tenderness, Pulses + AUTOMATION OPERATOR: AOX3 Non focal Labs: CBC, BMP 04/06/17 06:45 04/06/17 06:45 INR, PTT INR 1.02 (0.82-1.09) 03/29/17 07:00 Microbiology 04/03/17 12:00 Bronchial Brushings Gram Stain - Final 04/03/17 12:00 Bronchial Brushings Bronchoalveolar Lavage Culture - Final Pseudomonas Aeruginosa Diphtheroid/Corynebacterium Mr S Aureus Problem List - Problems (1) Hemoptysis Assessment/Plan: COPD fibrovaitory lesion H/H stable, amount of hemoptysis minimal, BAL grew mixed prganism, Bacteroid MRSA and Pseudomonas will consider changing to Levofloxacin and CXlindamycine Code(s): R04.2 - HEMOPTYSIS (2) Cavitary lesion of lung Assessment/Plan: Cont Nebs treatment and IV abx Code(s): J98.4 - OTHER DISORDERS OF LUNG (3) HTN (hypertension) Assessment/Plan: well controlled cont current medications Code(s): I10 - ESSENTIAL (PRIMARY) HYPERTENSION Qualifiers: (4) Dystonia Assessment/Plan: Chronic cont home meds Code(s): G24.9 - DYSTONIA, UNSPECIFIED (5) COPD (chronic obstructive pulmonary disease) Assessment/Plan: Cont IV abx and Nebs treatment Code(s): J44.9 - CHRONIC OBSTRUCTIVE PULMONARY DISEASE, UNSPECIFIED Qualifiers: COPD type: COPD with acute exacerbation Qualified Code(s): J44.1 - Chronic obstructive pulmonary disease with (acute) exacerbation (6) Neurogenic bladder Assessment/Plan: s/p Suprapubic cathter Code(s): N31.9 - NEUROMUSCULAR DYSFUNCTION OF BLADDER, UNSPECIFIED
[2017-04-06] MEDS: traMADol HCL 50 MG TABLET PO PRN (17:06)
[2017-04-06] MEDS ORDERED: PT OWN MED DRAWER 7, Y5N ONE (21:22)
[2017-04-06] MEDS: CEFTRIAXONE 1 G/50 ML PREMIX 50 ML IVPB SCH (21:27)
[2017-04-06] MEDS: SENNOSIDES 8.8 MG/5 ML BULK BOTTLE PO SCH (21:27)
[2017-04-07] MEDS: ALBUTEROL SO4 2.5/IPRATROPIUM 0.5 INH SOL 3 ML VIAL.NEB. NEB SCH ×5 (07:17→22:01)
[2017-04-07 09:11] LABS: ALBUMIN 3.1 g/dl (3.4-5.0); ANION GAP 10 (8-16); CALCIUM 8.4 mg/dL (8.5-10.1); CO2 27 mmol/L (21-32); GLUCOSE,RANDOM 105 mg/dL (74-106)
[2017-04-07 09:14] LABS: ALK PHOS 87 U/L (45-117); BILIRUBIN,TOTAL 0.4 mg/dL (0.2-1.0); CREATININE 0.6 mg/dL (0.7-1.3); SGOT/AST 30 U/L (15-37); SGPT/ALT 89 U/L (12-78); TOT PROT 6.2 g/dl (6.4-8.2)
[2017-04-07] MEDS ORDERED: PT OWN MED DRAWER 7, Y5N ONE ×2 (10:00→21:05)
[2017-04-07] MEDS: OXYBUTYNIN CHLORIDE 5 MG TABLET PO SCH (10:08)
[2017-04-07] MEDS: predniSONE 10 MG TABLET (UD) PO SCH (10:08)
[2017-04-07] MEDS: PANTOPRAZOLE SODIUM 40 MG VIAL IVPUSH SCH (10:09)
[2017-04-07] MEDS: diazePAM 5 MG TABLET PEG PRN ×2 (10:24→21:18)
--- NOTE | 2017-04-07 11:08 | PN ---
Progress Note (short form) - Note Progress Note: PULMONARY APPEARS STABLE NO CHANGE IN EXAM NO HEMOPTYSIS LABS/MEDS/NOTES REVIEWED FOB/EGD UNREVEALING Hemoptysis resolving COPD Bronchiectasis Dystonia HTN Neurogenic Bladder Suprapubic Catheter GERD - changed medrol to oral prednisone - antibiotics as per primary team - inhaled bronchodilators - O2 as needed - mechanical DVT prophylaxis - codeine - discharge planning Bryan GAYTAN MD
--- NOTE | 2017-04-07 13:47 | PN ---
Progress Note, Physician Chief Complaint: Feels improved less Hemoptysis History of Present Illness: 61 yo M with PMH of chronic hemoptysis possibly due to bronchiectasis, cervical fusion s/p fracture, dystonia s/p cervical fracture, neurogenic bladder with suprapubic catheter, asthma, COPD, GERD, HTN, presented with worsening hemoptysis 03/29/2017. - Current Medication List Current Medications: Active Medications Acetaminophen (Tylenol -) 325 mg PO Q6H PRN PRN Reason: PAIN OR FEVER Albuterol/Ipratropium (Duoneb -) 1 amp NEB Q4HWA [facility] Last Admin: 04/07/17 13:27 Dose: 1 amp Diazepam (Valium -) 5 mg PEG Q8H PRN Last Admin: 04/07/17 10:24 Dose: 5 mg Docusate Sodium (Colace Liquid -) 200 mg PO DAILY PRN PRN Reason: CONSTIPATION Last Admin: 04/05/17 21:24 Dose: 200 mg Fentanyl (Sublimaze Injection -) 25 mcg IVPUSH [id number] PRN PRN Reason: PAIN CEFTRIAXONE 1 G/50 ML PREMIX (Ceftriaxone 1 Gm-D5w Bag) 50 mls @ 100 mls/hr IVPB HS [facility] Last Admin: 04/06/17 21:27 Dose: 100 mls/hr Lactated Ringer's (Lactated Ringers Solution) 1,000 mls @ 75 mls/hr IV ASDIR [facility] Oxybutynin Chloride (Ditropan -) 10 mg PO DAILY [facility] Last Admin: 04/07/17 10:08 Dose: 10 mg Pantoprazole Sodium (Protonix Iv) 40 mg IVPUSH DAILY [facility] Last Admin: 04/07/17 10:09 Dose: 40 mg Prednisone (Deltasone -) 30 mg PO DAILY [facility] Last Admin: 04/07/17 10:08 Dose: 30 mg Senna (Senna Oral Solution -) 8.8 mg PO HS [facility] Last Admin: 04/06/17 21:27 Dose: 8.8 mg Tramadol HCl (Ultram -) 50 mg PO Q6H PRN Last Admin: 04/06/17 17:06 Dose: 50 mg - Objective Vital Signs: Vital Signs Temperature 98 F 04/06/17 22:00 Pulse Rate 70 04/06/17 22:00 Respiratory Rate 18 04/06/17 22:00 Blood Pressure 104/65 04/06/17 22:00 O2 Sat by Pulse Oximetry (%) 95 04/06/17 21:00 Elderly M looks comfortable feels improd HEENT: Mm moist, no anemia, PERRLA, EOMI NECK; No JVD No Bruit, Thyroid Central CHEST: CTA B/L CVS: S1S2 R no m/g/r ABD: No distention, non tender BS + EXT: Trace edema feet, no calf tenderness, Pulses + Labs: CBC, BMP 04/06/17 06:45 04/07/17 07:30 INR, PTT INR 1.02 (0.82-1.09) 03/29/17 07:00 Problem List - Problems (1) Hemoptysis Assessment/Plan: COPD fibrovaitory lesion H/H stable, amount of hemoptysis minimal, BAL grew mixed prganism, Bacteroid MRSA and Pseudomonas will consider changing to Levofloxacin and CXlindamycine Code(s): R04.2 - HEMOPTYSIS (2) Cavitary lesion of lung Assessment/Plan: Cont Nebs treatment and IV abx Code(s): J98.4 - OTHER DISORDERS OF LUNG (3) HTN (hypertension) Assessment/Plan: well controlled cont current medications Code(s): I10 - ESSENTIAL (PRIMARY) HYPERTENSION Qualifiers: (4) Dystonia Assessment/Plan: Chronic cont home meds Code(s): G24.9 - DYSTONIA, UNSPECIFIED (5) COPD (chronic obstructive pulmonary disease) Assessment/Plan: Cont IV abx and Nebs treatment Code(s): J44.9 - CHRONIC OBSTRUCTIVE PULMONARY DISEASE, UNSPECIFIED Qualifiers: Qualified Code(s): J44.1 - Chronic obstructive pulmonary disease with (acute ) exacerbation (6) Neurogenic bladder Assessment/Plan: s/p Suprapubic cathter Code(s): N31.9 - NEUROMUSCULAR DYSFUNCTION OF BLADDER, UNSPECIFIED
[2017-04-07] MEDS: DOCUSATE NA 100 MG/10 ML UNIT-DOSE CUPS PO PRN (14:52)
[2017-04-07] MEDS: SENNOSIDES 8.8 MG/5 ML BULK BOTTLE PO SCH (21:18)
[2017-04-08] MEDS: ALBUTEROL SO4 2.5/IPRATROPIUM 0.5 INH SOL 3 ML VIAL.NEB. NEB SCH ×5 (06:55→22:50)
[2017-04-08] MEDS ORDERED: LEVOFLOXACIN 500 MG IVPB 500 MG/100 ML BAG IVPB SCH (08:00)
[2017-04-08] MEDS: predniSONE 10 MG TABLET (UD) PO SCH (09:49)
[2017-04-08] MEDS: diazePAM 5 MG TABLET PEG PRN (09:50)
[2017-04-08] MEDS: OXYBUTYNIN CHLORIDE 5 MG TABLET PO SCH (09:50)
[2017-04-08] MEDS: PANTOPRAZOLE SODIUM 40 MG VIAL IVPUSH SCH (09:50)
--- NOTE | 2017-04-08 12:44 | PN ---
Progress Note, Physician Chief Complaint: Mr Nash complains of constipation. Denies hemoptysis. No cp, sob, n/v. - Current Medication List Current Medications: Active Medications Acetaminophen (Tylenol -) 325 mg PO Q6H PRN PRN Reason: PAIN OR FEVER Albuterol/Ipratropium (Duoneb -) 1 amp NEB Q4HWA [facility] Last Admin: 04/08/17 10:05 Dose: 1 amp Docusate Sodium (Colace Liquid -) 200 mg PO DAILY PRN PRN Reason: CONSTIPATION Last Admin: 04/07/17 14:52 Dose: 200 mg Docusate Sodium (Colace Liquid -) 200 mg PO DAILY [facility] Levofloxacin (Levaquin 500 Mg Premixed Ivpb -) 500 mg in 100 mls @ 100 mls/hr IVPB DAILY@0800 [facility] Last Admin: 04/08/17 09:50 Dose: 100 mls/hr Oxybutynin Chloride (Ditropan -) 10 mg PO DAILY [facility] Last Admin: 04/08/17 09:50 Dose: 10 mg Pantoprazole Sodium (Protonix Iv) 40 mg IVPUSH DAILY [facility] Last Admin: 04/08/17 09:50 Dose: 40 mg Polyethylene Glycol (Miralax (For Daily Use) -) 17 gm PEG BID [facility] Prednisone (Deltasone -) 30 mg PO DAILY [facility] Last Admin: 04/08/17 09:49 Dose: 30 mg Senna (Senna Oral Solution -) 8.8 mg PO HS [facility] Last Admin: 04/07/17 21:18 Dose: 8.8 mg Tramadol HCl (Ultram -) 50 mg PO Q6H PRN Last Admin: 04/06/17 17:06 Dose: 50 mg - Objective Vital Signs: Vital Signs Temperature 36.5 C 04/08/17 09:00 Pulse Rate 71 04/08/17 09:00 Respiratory Rate 19 04/08/17 09:00 Blood Pressure 110/70 04/08/17 09:00 O2 Sat by Pulse Oximetry (%) 99 04/08/17 09:00 Constitutional: Yes: No Distress, Calm, Thin Cardiovascular: Yes: Regular Rate and Rhythm. No: Gallop, Murmur, Rub Respiratory: Yes: Regular, CTA Bilaterally. No: Rales, Rhonchi, Wheezes Gastrointestinal: Yes: Normal Bowel Sounds, Soft. No: Distention, Tenderness Extremities: Yes: WNL Edema: No Labs: CBC, BMP 04/06/17 06:45 04/07/17 07:30 INR, PTT INR 1.02 (0.82-1.09) 03/29/17 07:00 Problem List - Problems (1) Hemoptysis Code(s): R04.2 - HEMOPTYSIS (2) COPD (chronic obstructive pulmonary disease) Code(s): J44.9 - CHRONIC OBSTRUCTIVE PULMONARY DISEASE, UNSPECIFIED Qualifiers: COPD type: COPD with acute exacerbation Qualified Code(s): J44.1 - Chronic obstructive pulmonary disease with (acute) exacerbation (3) Suprapubic catheter Code(s): Z93.59 - OTHER CYSTOSTOMY STATUS (4) Protein-calorie malnutrition, severe Code(s): E43 - UNSPECIFIED SEVERE PROTEIN-CALORIE MALNUTRITION Assessment/Plan (1) Hemoptysis Assessment/Plan: -currently resolved -monitor Code(s): R04.2 - HEMOPTYSIS (2) COPD (chronic obstructive pulmonary disease) Assessment/Plan: -exacerbation with hemoptysis, hemoptysis currently resolved -continue steroid taper per pulmonary, currently on prednisone Code(s): J44.9 - CHRONIC OBSTRUCTIVE PULMONARY DISEASE, UNSPECIFIED Qualifiers: COPD type: COPD with acute exacerbation Qualified Code(s): J44.1 - Chronic obstructive pulmonary disease with (acute) exacerbation (3) Suprapubic catheter Assessment/Plan: -changed by urology Code(s): Z93.59 - OTHER CYSTOSTOMY STATUS (4) Protein-calorie malnutrition, severe Assessment/Plan: -continue to titrate TF, almost at goal -Jevity 1.5 with goal of 75ml/hr for 16 hours with 30ml H2O with this per nutrition note Code(s): E43 - UNSPECIFIED SEVERE PROTEIN-CALORIE MALNUTRITION (5) Bacteria in sputum sample -bronchial washings growing pseuodomanas and MRSA -changed to levaquin over the weekend -however concerning these were found in the washing -consult ID, may need broad spectrum antibiotics
[2017-04-08] MEDS ORDERED: PT OWN MED DRAWER 7, Y5N ONE (14:19)
[2017-04-08] MEDS: POLYETHYLENE GLYCOL 3350 119 GM BTL PEG SCH ×2 (14:31→21:51)
--- NOTE | 2017-04-08 15:20 | PN ---
Progress Note, Physician History of Present Illness: PULMONARY ALERT,NAD,-RESP DISTRESS,-HEMOPTYSIS - Current Medication List Current Medications: Active Medications Acetaminophen (Tylenol -) 325 mg PO Q6H PRN PRN Reason: PAIN OR FEVER Albuterol/Ipratropium (Duoneb -) 1 amp NEB Q4HWA [facility] Last Admin: 04/08/17 10:05 Dose: 1 amp Docusate Sodium (Colace Liquid -) 200 mg PO DAILY PRN PRN Reason: CONSTIPATION Last Admin: 04/07/17 14:52 Dose: 200 mg Docusate Sodium (Colace Liquid -) 200 mg PO DAILY [facility] Levofloxacin (Levaquin 500 Mg Premixed Ivpb -) 500 mg in 100 mls @ 100 mls/hr IVPB DAILY@0800 [facility] Last Admin: 04/08/17 09:50 Dose: 100 mls/hr Oxybutynin Chloride (Ditropan -) 10 mg PO DAILY [facility] Last Admin: 04/08/17 09:50 Dose: 10 mg Pantoprazole Sodium (Protonix Iv) 40 mg IVPUSH DAILY [facility] Last Admin: 04/08/17 09:50 Dose: 40 mg Polyethylene Glycol (Miralax (For Daily Use) -) 17 gm PEG BID [facility] Last Admin: 04/08/17 14:31 Dose: 17 gm Prednisone (Deltasone -) 30 mg PO DAILY [facility] Last Admin: 04/08/17 09:49 Dose: 30 mg Senna (Senna Oral Solution -) 8.8 mg PO HS [facility] Last Admin: 04/07/17 21:18 Dose: 8.8 mg Tramadol HCl (Ultram -) 50 mg PO Q6H PRN Last Admin: 04/06/17 17:06 Dose: 50 mg - Objective Vital Signs: Vital Signs Temperature 97.9 F 04/08/17 14:21 Pulse Rate 78 04/08/17 14:21 Respiratory Rate 20 04/08/17 14:21 Blood Pressure 100/70 04/08/17 14:21 O2 Sat by Pulse Oximetry (%) 99 04/08/17 09:00 Constitutional: Yes: Calm, Cachectic Eyes: Yes: WNL HENT: Yes: WNL Neck: Yes: WNL Cardiovascular: Yes: Regular Rate and Rhythm, S1, S2 Respiratory: Yes: Diminished Gastrointestinal: Yes: Normal Bowel Sounds, Soft Extremities: Yes: WNL Edema: No Labs: CBC, BMP 04/06/17 06:45 04/07/17 07:30 INR, PTT INR 1.02 (0.82-1.09) 03/29/17 07:00 Problem List - Problems (1) Hemoptysis Code(s): R04.2 - HEMOPTYSIS (2) Protein-calorie malnutrition, severe Code(s): E43 - UNSPECIFIED SEVERE PROTEIN-CALORIE MALNUTRITION (3) Aspiration of blood Code(s): R09.89 - OTH SYMPTOMS AND SIGNS INVOLVING THE CIRC AND RESP SYSTEMS (4) Cavitary lesion of lung Code(s): J98.4 - OTHER DISORDERS OF LUNG (5) Cough with hemoptysis Code(s): R04.2 - HEMOPTYSIS (6) Dystonia Code(s): G24.9 - DYSTONIA, UNSPECIFIED (7) Fever Code(s): R50.9 - FEVER, UNSPECIFIED Qualifiers: Fever type: unspecified Qualified Code(s): R50.9 - Fever, unspecified (8) GERD (gastroesophageal reflux disease) Code(s): K21.9 - GASTRO-ESOPHAGEAL REFLUX DISEASE WITHOUT ESOPHAGITIS (9) Neurogenic bladder Code(s): N31.9 - NEUROMUSCULAR DYSFUNCTION OF BLADDER, UNSPECIFIED (10) Suprapubic catheter Code(s): Z93.59 - OTHER CYSTOSTOMY STATUS Assessment/Plan IMP Hemoptysis resolved COPD Bronchiectasis Dystonia HTN Neurogenic Bladder Suprapubic Catheter GERD - prednisone - antibiotics - inhaled bronchodilators - O2 as needed - mechanical DVT prophylaxis DR MURDOCK
--- NOTE | 2017-04-08 15:57 | CON.ID ---
Consult Consult Specialty:: infectious diseases Reason for Consultation:: pneumonia - History of Present Illness Chief Complaint: hemoptysis History of Present Illness: 61 yo M with pmhx of hemoptysis believed to be 2/2 to bronchiectasis, cervical fusion s/p fracture, dystonia s/p cervical fracture, neurogenic bladder with suprapubic catheter, asthma, COPD , GERD, HTN, and carpal tunnel admitted with hemoptysis fs. Patient has a PEG tube placed and states he was being fed via the PEG tube when he started coughing up blood. patient was coughing blood patient was evaluated and bronch was done patient cx were send and was growing bacteria currently patient mentions that he still is having hemoptysis but has decreased - History Source History Provided By: Patient Limitations to Obtaining History: No Limitations - Past Medical History [employer]: Yes: Other (Muscular dystonia since age 21 year) Cardio/Vascular: Yes: HTN Pulmonary: Yes: Asthma, Pneumonia, Sleep Apnea, Other (Cavitary lesion in lung ruled out for TB) Gastrointestinal: Yes: Constipation, GERD, Other (dysphagia) Hepatobiliary: Yes: Other (as noted in medical record.) Renal/: Yes: BPH (s/p thermal prostate procedure), Neurogenic Bladder ( suprapubic tube ), UTI Infectious Disease: Yes: Other (influenza b august 2013) Psych: Yes: Depression Musculoskeletal: Yes: Other (Muscular dystonia) - Past Surgical History Past Surgical History: Yes: Laminectomy (cervical laminectomy with fusion) - Alcohol/Substance Use Hx Alcohol Use: No History of Substance Use: reports: None Date of Last Use: 05/18/78 (estimated) - Smoking History Smoking history: Never smoked Have you smoked in the past 12 months: No Aproximately how many cigarettes per day: 0 - Social History Usual Living Arrangement: Longterm ADL: Support Services 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 History of Recent Travel: No Home Medications - Allergies Allergies/Adverse Reactions: Allergies Allergy/AdvReac Type Severity Reaction Status Date / Time iodine Allergy Severe Low Blood Verified 03/28/17 22:54 Pressure kiwi Allergy Intermediate Swelling Verified 03/28/17 22:54 latex Allergy Unknown Swelling Verified 03/28/17 22:54 shellfish derived Allergy Unknown Verified 03/28/17 22:54 ampicillin sodium Allergy Rash Verified 03/28/17 22:54 [From Unasyn] Fish Containing Products Allergy Difficulty Verified 03/28/17 22:54 Breathing Penicillins Allergy Rash Verified 03/28/17 22:54 sulbactam sodium Allergy Rash Verified 03/28/17 22:54 [From Unasyn] Sulfa (Sulfonamide Allergy Hives Verified 03/28/17 22:54 Antibiotics) [Sulfa(Sulfonamide Antibiotics)] - Home Medications Home Medications: Ambulatory Orders Acetaminophen [Tylenol] 325 mg PO QID 03/28/17 Albuterol Sulfate [Ventolin -] 2.5 mg PO TID 03/28/17 Docusate Sodium [Colace -] 300 mg PO TID 03/28/17 Metoclopramide Oral Soln [Reglan Oral Solution -] 5 mg GT BID 03/28/17 Oxybutynin Chloride 10 mg PO DAILY 03/28/17 Polyethylene Glycol 3350 [Laxaclear] 1,700 gm PO DAILY 03/28/17 Sennosides [Senna] 8.6 mg PO BID 03/28/17 Tramadol HCl 50 mg PO QID 03/28/17 Bisacodyl [Biscolax] 1 supp.rect [place] PRN PRN 03/29/17 Cystex Plus Tablet 162 mg PEG DAILY 03/29/17 Diazepam [Valium] 5 mg PEG Q8H 03/29/17 Evgeny-128 5% 1 drop OU QID 03/29/17 Periguard Ointment TP 03/29/17 Ranitidine [Zantac -] 1 tab PEG BID 03/29/17 Family Disease History - Family Disease History Family Disease History: Diabetes: Father (mild cognitive decline), Heart Disease : Father, CA: Mother (, colon cancer), Other: Father Review of Systems - Review of Systems Constitutional: reports: No Symptoms Eyes: reports: No Symptoms HENT: reports: No Symptoms Neck: reports: No Symptoms Cardiovascular: reports: No Symptoms Respiratory: reports: Cough, Hemoptysis Gastrointestinal: reports: No Symptoms Genitourinary: reports: No Symptoms Musculoskeletal: reports: No Symptoms Integumentary: reports: No Symptoms Neurological: reports: No Symptoms Endocrine: reports: No Symptoms Hematology/Lymphatic: reports: No Symptoms Psychiatric: reports: No Symptoms Physical Exam Vital Signs: Vital Signs Temperature 97.9 F 04/08/17 14:21 Pulse Rate 78 04/08/17 14:21 Respiratory Rate 20 04/08/17 14:21 Blood Pressure 100/70 04/08/17 14:21 O2 Sat by Pulse Oximetry (%) 99 04/08/17 09:00 Constitutional: Yes: No Distress, Calm Neck: Yes: Supple, Trachea Midline Cardiovascular: Yes: Regular Rate and Rhythm Respiratory: Yes: Poor Air Entry, Rhonchi Gastrointestinal: Yes: Normal Bowel Sounds, Soft, Other (peg tube in place) Musculoskeletal: Yes: WNL Extremities: Yes: Other (contracted) Neurological: Yes: Alert, Oriented Psychiatric: Yes: Alert Labs: CBC, BMP 04/06/17 06:45 04/07/17 07:30 Imaging - Results Chest X-ray: Report Reviewed, Image Reviewed Ultrasound: Report Reviewed, Image Reviewed Assessment/Plan Problem List - Problems (1) Pneumonia (2) COPD (chronic obstructive pulmonary disease) Code(s): J44.9 - CHRONIC OBSTRUCTIVE PULMONARY DISEASE, UNSPECIFIED Qualifiers: COPD type: COPD with acute exacerbation Qualified Code(s): J44.1 - Chronic obstructive pulmonary disease with (acute) exacerbation (3) Suprapubic catheter Code(s): Z93.59 - OTHER CYSTOSTOMY STATUS (4) Protein-calorie malnutrition, severe Code(s): E43 - UNSPECIFIED SEVERE PROTEIN-CALORIE MALNUTRITION (5) Hemoptysis (6) Constipation plan will start patient on vanco and meropenam rest continue current mgmt nutrition rest as per primary team
[2017-04-08] MEDS: MEROPENEM 1 GM PUSH 1 GM/20 ML DISP.SYRIN IVPUSH SCH (17:29)
[2017-04-08] MEDS: VANCOMYCIN 1,250 MG in DEXTROSE 5%-WATER - 250 ML IVPB SCH (17:32)
[2017-04-08] MEDS: DOCUSATE NA 100 MG/10 ML UNIT-DOSE CUPS PO SCH (21:53)
[2017-04-08] MEDS: SENNOSIDES 8.8 MG/5 ML BULK BOTTLE PO SCH (21:53)
[2017-04-09] MEDS: MEROPENEM 1 GM PUSH 1 GM/20 ML DISP.SYRIN IVPUSH SCH ×3 (02:20→17:56)
[2017-04-09] MEDS: traMADol HCL 50 MG TABLET PO PRN (06:15)
[2017-04-09] MEDS: ALBUTEROL SO4 2.5/IPRATROPIUM 0.5 INH SOL 3 ML VIAL.NEB. NEB SCH ×5 (07:12→23:14)
[2017-04-09 07:48] LABS: BASOPHIL 0.1 % (0-2.0); EOSINOPHIL 0.9 % (0-4.5); MCH 31.6 pg (25.7-33.7); MCHC 32.8 g/dl (32.0-35.9); MEAN CELL VOLUME 96.3 fl (80-96); MEAN PLT VOLUME 8.3 fl (7.5-11.1); NEUTROPHILS 65.3 % (42.8-82.8); PLATELET COUNT 207 K/MM3 (134-434); RDW 12.8 % (11.9-15.9); WHITE BLOOD COUNT 8.4 K/mm3 (4.0-10.0)
[2017-04-09 08:12] LABS: ANION GAP 5 (8-16); CALCIUM 8.2 mg/dL (8.5-10.1); CO2 34 mmol/L (21-32); CREATININE 0.5 mg/dL (0.7-1.3); GLUCOSE,RANDOM 94 mg/dL (74-106); MAGNESIUM 2.7 mg/dL (1.8-2.4)
--- NOTE | 2017-04-09 10:22 | PN ---
Progress Note (short form) - Note Progress Note: Breathing feels ok. Less cough. No hemoptysis. No BM for 10 days. Intake & Output 04/06/17 04/07/17 04/08/17 04/09/17 23:59 23:59 23:59 23:59 Intake Total 1400 2180 590 Output Total 2400 2050 725 400 Balance -1000 130 -135 -400 Last Vital Signs Temp Pulse Resp BP Pulse Ox 98.0 F 70 18 108/73 95 04/09/17 05:00 04/09/17 05:00 04/09/17 05:00 04/09/17 05:00 04/08/17 22:00 Active Medications Acetaminophen (Tylenol -) 325 mg PO Q6H PRN PRN Reason: PAIN OR FEVER Albuterol/Ipratropium (Duoneb -) 1 amp NEB Q4HWA [facility] Last Admin: 04/09/17 07:12 Dose: Not Given Docusate Sodium (Colace Liquid -) 200 mg PO DAILY PRN PRN Reason: CONSTIPATION Last Admin: 04/07/17 14:52 Dose: 200 mg Docusate Sodium (Colace Liquid -) 200 mg PO DAILY [facility] Last Admin: 04/08/17 21:53 Dose: 200 mg Vancomycin HCl 1,250 mg/ (Dextrose) 250 mls @ 166.667 mls/hr IVPB DAILY [facility] PRN Reason: Protocol Last Admin: 04/08/17 17:32 Dose: 166.667 mls/hr Meropenem (Merrem (Restricted To Id) -) 1 gm in 20 mls @ 100 mls/hr IVPUSH Q8H- IV [facility] PRN Reason: Protocol Last Admin: 04/09/17 02:20 Dose: 100 mls/hr Oxybutynin Chloride (Ditropan -) 10 mg PO DAILY [facility] Last Admin: 04/08/17 09:50 Dose: 10 mg Pantoprazole Sodium (Protonix Iv) 40 mg IVPUSH DAILY [facility] Last Admin: 04/08/17 09:50 Dose: 40 mg Polyethylene Glycol (Miralax (For Daily Use) -) 17 gm PEG BID [facility] Last Admin: 04/08/17 21:51 Dose: 17 gm Prednisone (Deltasone -) 30 mg PO DAILY [facility] Last Admin: 04/08/17 09:49 Dose: 30 mg Senna (Senna Oral Solution -) 8.8 mg PO HS [facility] Last Admin: 04/08/17 21:53 Dose: 8.8 mg Tramadol HCl (Ultram -) 50 mg PO Q6H PRN Last Admin: 04/09/17 06:15 Dose: 50 mg Constitutional: Yes: Calm, Cachectic Eyes: Yes: WNL HENT: Yes: WNL Neck: Yes: WNL Cardiovascular: Yes: Regular Rate and Rhythm, S1, S2 Respiratory: Yes: Diminished Gastrointestinal: Yes: Normal Bowel Sounds, Soft Extremities: Yes: WNL Edema: No Labs: Laboratory Results - last 24 hr 04/09/17 04/09/17 07:30 07:30 WBC 8.4 RBC 3.93 L Hgb 12.4 Hct 37.8 MCV 96.3 H MCH 31.6 MCHC 32.8 RDW 12.8 Plt Count 207 MPV 8.3 Neutrophils % 65.3 D Lymphocytes % 21.2 D Monocytes % 12.5 H Eosinophils % 0.9 D Basophils % 0.1 Sodium 140 Potassium 4.1 D Chloride 101 Carbon Dioxide 34 H D Anion Gap 5 L BUN 16 Creatinine 0.5 L Random Glucose 94 Calcium 8.2 L Phosphorus 2.0 L D Magnesium 2.7 H Assessment/Plan Resolved Hemoptysis PNA COPD Bronchiectasis Dystonia HTN Neurogenic Bladder Suprapubic Catheter GERD - Prednisone - ABX per ID - inhaled bronchodilators - O2 as needed - Mechanical DVT prophylaxis Dr Bolton
[2017-04-09] MEDS ORDERED: PT OWN MED DRAWER 7, Y5N ONE ×2 (10:25→21:40)
[2017-04-09] MEDS: DOCUSATE NA 100 MG/10 ML UNIT-DOSE CUPS PO SCH (10:33)
[2017-04-09] MEDS: predniSONE 10 MG TABLET (UD) PO SCH (10:33)
[2017-04-09] MEDS: OXYBUTYNIN CHLORIDE 5 MG TABLET PO SCH (10:34)
[2017-04-09] MEDS: POLYETHYLENE GLYCOL 3350 119 GM BTL PEG SCH ×2 (10:34→21:41)
[2017-04-09] MEDS: VANCOMYCIN 1,250 MG in DEXTROSE 5%-WATER - 250 ML IVPB SCH (10:36)
[2017-04-09] MEDS: PANTOPRAZOLE SODIUM 40 MG VIAL IVPUSH SCH (10:37)
[2017-04-09] MEDS ORDERED: BISACODYL 10 MG SUPP.RECT RC ONE (11:00)
[2017-04-09] MEDS: diazePAM 5 MG TABLET PEG PRN ×2 (11:27→21:41)
--- NOTE | 2017-04-09 13:00 | PN ---
Progress Note, Physician Chief Complaint: Mr Nash complains of constipation. Denies hemoptysis. No cp, sob, n/v. States miralax and colace causing some abdominal discomfort so declined today. - Current Medication List Current Medications: Active Medications Acetaminophen (Tylenol -) 325 mg PO Q6H PRN PRN Reason: PAIN OR FEVER Albuterol/Ipratropium (Duoneb -) 1 amp NEB Q4HWA [facility] Last Admin: 04/09/17 10:12 Dose: Not Given Diazepam (Valium -) 5 mg PEG Q8H PRN PRN Reason: WITHDRAWAL(CONT SUBST) Last Admin: 04/09/17 11:27 Dose: 5 mg Docusate Sodium (Colace Liquid -) 200 mg PO DAILY PRN PRN Reason: CONSTIPATION Last Admin: 04/07/17 14:52 Dose: 200 mg Docusate Sodium (Colace Liquid -) 200 mg PO DAILY [facility] Last Admin: 04/09/17 10:33 Dose: 200 mg Vancomycin HCl 1,250 mg/ (Dextrose) 250 mls @ 166.667 mls/hr IVPB DAILY [facility] PRN Reason: Protocol Last Admin: 04/09/17 10:36 Dose: 166.667 mls/hr Meropenem (Merrem (Restricted To Id) -) 1 gm in 20 mls @ 100 mls/hr IVPUSH Q8H- IV [facility] PRN Reason: Protocol Last Admin: 04/09/17 10:35 Dose: 100 mls/hr Oxybutynin Chloride (Ditropan -) 10 mg PO DAILY [facility] Last Admin: 04/09/17 10:34 Dose: 10 mg Polyethylene Glycol (Miralax (For Daily Use) -) 17 gm PEG BID [facility] Last Admin: 04/09/17 10:34 Dose: 17 gm Potassium Phos/Sodium Phos (Phos-Nak Packet -) 1 packet PEG BID [facility] Stop: 04/11/17 22:01 Prednisone (Deltasone -) 30 mg PO DAILY [facility] Last Admin: 04/09/17 10:33 Dose: 30 mg Ranitidine HCl (Zantac -) 150 mg PO BID [facility] Senna (Senna Oral Solution -) 8.8 mg PO HS [facility] Last Admin: 04/08/17 21:53 Dose: 8.8 mg Tramadol HCl (Ultram -) 50 mg PO Q6H PRN Last Admin: 04/09/17 06:15 Dose: 50 mg - Objective Vital Signs: Vital Signs Temperature 36.7 C 04/09/17 05:00 Pulse Rate 70 04/09/17 05:00 Respiratory Rate 18 04/09/17 05:00 Blood Pressure 108/73 04/09/17 05:00 O2 Sat by Pulse Oximetry (%) 95 04/08/17 22:00 Constitutional: Yes: No Distress, Calm, Thin Cardiovascular: Yes: Regular Rate and Rhythm. No: Gallop, Murmur, Rub Respiratory: Yes: Regular, CTA Bilaterally. No: Rales, Rhonchi, Wheezes Gastrointestinal: Yes: Normal Bowel Sounds, Soft. No: Distention, Tenderness Extremities: Yes: WNL Edema: No Labs: CBC, BMP 04/09/17 07:30 04/09/17 07:30 INR, PTT INR 1.02 (0.82-1.09) 03/29/17 07:00 Problem List - Problems (1) Hemoptysis Code(s): R04.2 - HEMOPTYSIS (2) COPD (chronic obstructive pulmonary disease) Code(s): J44.9 - CHRONIC OBSTRUCTIVE PULMONARY DISEASE, UNSPECIFIED Qualifiers: COPD type: COPD with acute exacerbation Qualified Code(s): J44.1 - Chronic obstructive pulmonary disease with (acute) exacerbation (3) Suprapubic catheter Code(s): Z93.59 - OTHER CYSTOSTOMY STATUS (4) Protein-calorie malnutrition, severe Code(s): E43 - UNSPECIFIED SEVERE PROTEIN-CALORIE MALNUTRITION Assessment/Plan (1) Pneumonia -appreciate ID assistance -continue merrem and vancomycin -full course per ID (2) COPD (chronic obstructive pulmonary disease) Assessment/Plan: -exacerbation with hemoptysis, hemoptysis currently resolved -continue steroid taper per pulmonary, currently on prednisone Code(s): J44.9 - CHRONIC OBSTRUCTIVE PULMONARY DISEASE, UNSPECIFIED Qualifiers: COPD type: COPD with acute exacerbation Qualified Code(s): J44.1 - Chronic obstructive pulmonary disease with (acute) exacerbation (3) Suprapubic catheter Assessment/Plan: -changed by urology Code(s): Z93.59 - OTHER CYSTOSTOMY STATUS (4) Protein-calorie malnutrition, severe Assessment/Plan -continue at current rate, at goal Code(s): E43 - UNSPECIFIED SEVERE PROTEIN-CALORIE MALNUTRITION (5) Hemoptysis -resolved (6) Constipation -bisacodyl suppository
[2017-04-09] MEDS: NAPH,MB-DB/K PH,MBDB POWDER PACKET PEG SCH ×2 (13:56→21:41)
--- NOTE | 2017-04-09 13:57 | PN ---
Progress Note, Physician History of Present Illness: feels slightly better still with cough says no hemoptsysis today - Current Medication List Current Medications: Active Medications Acetaminophen (Tylenol -) 325 mg PO Q6H PRN PRN Reason: PAIN OR FEVER Albuterol/Ipratropium (Duoneb -) 1 amp NEB Q4HWA [facility] Last Admin: 04/09/17 10:12 Dose: Not Given Diazepam (Valium -) 5 mg PEG Q8H PRN PRN Reason: WITHDRAWAL(CONT SUBST) Last Admin: 04/09/17 11:27 Dose: 5 mg Docusate Sodium (Colace Liquid -) 200 mg PO DAILY PRN PRN Reason: CONSTIPATION Last Admin: 04/07/17 14:52 Dose: 200 mg Docusate Sodium (Colace Liquid -) 200 mg PO DAILY [facility] Last Admin: 04/09/17 10:33 Dose: 200 mg Vancomycin HCl 1,250 mg/ (Dextrose) 250 mls @ 166.667 mls/hr IVPB DAILY [facility] PRN Reason: Protocol Last Admin: 04/09/17 10:36 Dose: 166.667 mls/hr Meropenem (Merrem (Restricted To Id) -) 1 gm in 20 mls @ 100 mls/hr IVPUSH Q8H- IV [facility] PRN Reason: Protocol Last Admin: 04/09/17 10:35 Dose: 100 mls/hr Oxybutynin Chloride (Ditropan -) 10 mg PO DAILY [facility] Last Admin: 04/09/17 10:34 Dose: 10 mg Polyethylene Glycol (Miralax (For Daily Use) -) 17 gm PEG BID [facility] Last Admin: 04/09/17 10:34 Dose: 17 gm Potassium Phos/Sodium Phos (Phos-Nak Packet -) 1 packet PEG BID [facility] Stop: 04/11/17 22:01 Last Admin: 04/09/17 13:56 Dose: 1 packet Prednisone (Deltasone -) 30 mg PO DAILY [facility] Last Admin: 04/09/17 10:33 Dose: 30 mg Ranitidine HCl (Zantac -) 150 mg PO BID [facility] Senna (Senna Oral Solution -) 8.8 mg PO HS [facility] Last Admin: 04/08/17 21:53 Dose: 8.8 mg Tramadol HCl (Ultram -) 50 mg PO Q6H PRN Last Admin: 04/09/17 06:15 Dose: 50 mg - Objective Vital Signs: Vital Signs Temperature 98 F 04/09/17 09:00 Pulse Rate 85 04/09/17 09:00 Respiratory Rate 18 04/09/17 09:00 Blood Pressure 106/75 04/09/17 09:00 O2 Sat by Pulse Oximetry (%) 97 04/09/17 09:00 Constitutional: Yes: No Distress, Calm Cardiovascular: Yes: Regular Rate and Rhythm Respiratory: Yes: Poor Air Entry, Rhonchi Gastrointestinal: Yes: Normal Bowel Sounds, Soft, Other (peg in place) Musculoskeletal: Yes: WNL Extremities: Yes: WNL Neurological: Yes: Alert, Oriented Psychiatric: Yes: Alert, Oriented Labs: CBC, BMP 04/09/17 07:30 04/09/17 07:30 INR, PTT INR 1.02 (0.82-1.09) 03/29/17 07:00 Assessment/Plan Problem List - Problems (1) Pneumonia (2) COPD (chronic obstructive pulmonary disease) Code(s): J44.9 - CHRONIC OBSTRUCTIVE PULMONARY DISEASE, UNSPECIFIED Qualifiers: COPD type: COPD with acute exacerbation Qualified Code(s): J44.1 - Chronic obstructive pulmonary disease with (acute) exacerbation (3) Suprapubic catheter Code(s): Z93.59 - OTHER CYSTOSTOMY STATUS (4) Protein-calorie malnutrition, severe Code(s): E43 - UNSPECIFIED SEVERE PROTEIN-CALORIE MALNUTRITION (5) Hemoptysis (6) Constipation plan continue abx continue monitoring nutrition rest as per primary
[2017-04-09] MEDS: RANITIDINE HCL 150 MG TABLET (FP) PO SCH (21:41)
[2017-04-09] MEDS: SENNOSIDES 8.8 MG/5 ML BULK BOTTLE PO SCH (21:41)
[2017-04-10] MEDS ORDERED: PT OWN MED DRAWER 7, Y5N ONE ×3 (01:42→17:33)
[2017-04-10] MEDS: MEROPENEM 1 GM PUSH 1 GM/20 ML DISP.SYRIN IVPUSH SCH ×3 (01:53→17:54)
[2017-04-10] MEDS: ALBUTEROL SO4 2.5/IPRATROPIUM 0.5 INH SOL 3 ML VIAL.NEB. NEB SCH ×5 (07:15→22:45)
[2017-04-10 07:35] LABS: BASOPHIL 0.1 % (0-2.0); EOSINOPHIL 0.7 % (0-4.5); MCH 32.3 pg (25.7-33.7); MCHC 33.2 g/dl (32.0-35.9); MEAN CELL VOLUME 97.1 fl (80-96); MEAN PLT VOLUME 8.5 fl (7.5-11.1); NEUTROPHILS 68.2 % (42.8-82.8); PLATELET COUNT 208 K/MM3 (134-434); RDW 12.8 % (11.9-15.9); WHITE BLOOD COUNT 9.9 K/mm3 (4.0-10.0)
[2017-04-10 07:54] LABS: ANION GAP 6 (8-16); CALCIUM 8.8 mg/dL (8.5-10.1); CO2 34 mmol/L (21-32); CREATININE 0.6 mg/dL (0.7-1.3); GLUCOSE,RANDOM 90 mg/dL (74-106); MAGNESIUM 2.7 mg/dL (1.8-2.4); PHOSPHOROUS 2.9 mg/dL (2.5-4.9)
[2017-04-10] MEDS: POLYETHYLENE GLYCOL 3350 119 GM BTL PEG SCH ×2 (10:42→21:24)
[2017-04-10] MEDS: DOCUSATE NA 100 MG/10 ML UNIT-DOSE CUPS PO SCH (10:42)
[2017-04-10] MEDS: VANCOMYCIN 1,250 MG in DEXTROSE 5%-WATER - 250 ML IVPB SCH (10:47)
[2017-04-10] MEDS: RANITIDINE HCL 150 MG TABLET (FP) PO SCH ×2 (10:47→21:24)
[2017-04-10] MEDS: OXYBUTYNIN CHLORIDE 5 MG TABLET PO SCH (10:47)
[2017-04-10] MEDS: predniSONE 10 MG TABLET (UD) PO SCH (10:47)
[2017-04-10] MEDS: diazePAM 5 MG TABLET PEG PRN ×2 (10:48→21:24)
[2017-04-10] MEDS: NAPH,MB-DB/K PH,MBDB POWDER PACKET PEG SCH ×2 (10:59→21:24)
--- NOTE | 2017-04-10 13:06 | PN ---
Progress Note (short form) - Note Progress Note: PULMONARY APPEARS STABLE NO CHANGE IN EXAM NO HEMOPTYSIS LABS/MEDS/NOTES REVIEWED FOB/EGD UNREVEALING Hemoptysis resolved COPD Bronchiectasis Dystonia HTN Neurogenic Bladder Suprapubic Catheter GERD - changed medrol to oral prednisone tapering - antibiotics as per ID - inhaled bronchodilators - O2 as needed - mechanical DVT prophylaxis - sadie GAYTAN MD
--- NOTE | 2017-04-10 13:36 | PN ---
Progress Note, Physician Chief Complaint: Mr Nash says he has a small amount of hemoptysis today. Denies cp, sob, n/v - Current Medication List Current Medications: Active Medications Acetaminophen (Tylenol -) 325 mg PO Q6H PRN PRN Reason: PAIN OR FEVER Albuterol/Ipratropium (Duoneb -) 1 amp NEB Q4HWA [facility] Last Admin: 04/10/17 10:13 Dose: 1 amp Diazepam (Valium -) 5 mg PEG Q8H PRN PRN Reason: WITHDRAWAL(CONT SUBST) Last Admin: 04/10/17 10:48 Dose: 5 mg Docusate Sodium (Colace Liquid -) 200 mg PO DAILY PRN PRN Reason: CONSTIPATION Last Admin: 04/07/17 14:52 Dose: 200 mg Docusate Sodium (Colace Liquid -) 200 mg PO DAILY [facility] Last Admin: 04/10/17 10:42 Dose: Not Given Vancomycin HCl 1,250 mg/ (Dextrose) 250 mls @ 166.667 mls/hr IVPB DAILY [facility] PRN Reason: Protocol Last Admin: 04/10/17 10:47 Dose: 166.667 mls/hr Meropenem (Merrem (Restricted To Id) -) 1 gm in 20 mls @ 100 mls/hr IVPUSH Q8H- IV [facility] PRN Reason: Protocol Last Admin: 04/10/17 11:07 Dose: 100 mls/hr Oxybutynin Chloride (Ditropan -) 10 mg PO DAILY [facility] Last Admin: 04/10/17 10:47 Dose: 10 mg Polyethylene Glycol (Miralax (For Daily Use) -) 17 gm PEG BID [facility] Last Admin: 04/10/17 10:42 Dose: Not Given Potassium Phos/Sodium Phos (Phos-Nak Packet -) 1 packet PEG BID [facility] Stop: 04/11/17 22:01 Last Admin: 04/10/17 10:59 Dose: 1 packet Prednisone (Deltasone -) 30 mg PO DAILY [facility] Last Admin: 04/10/17 10:47 Dose: 30 mg Ranitidine HCl (Zantac -) 150 mg PO BID [facility] Last Admin: 04/10/17 10:47 Dose: 150 mg Senna (Senna Oral Solution -) 8.8 mg PO HS [facility] Last Admin: 04/09/17 21:41 Dose: 8.8 mg Tramadol HCl (Ultram -) 50 mg PO Q6H PRN Last Admin: 04/09/17 06:15 Dose: 50 mg - Objective Vital Signs: Vital Signs Temperature 36.6 C 04/10/17 06:14 Pulse Rate 64 04/10/17 06:14 Respiratory Rate 19 04/10/17 06:14 Blood Pressure 107/66 04/10/17 06:14 O2 Sat by Pulse Oximetry (%) 98 04/09/17 21:00 Constitutional: Yes: No Distress, Calm, Thin Cardiovascular: Yes: Regular Rate and Rhythm. No: Gallop, Murmur, Rub Respiratory: Yes: Regular, CTA Bilaterally. No: Rales, Rhonchi, Wheezes Gastrointestinal: Yes: Normal Bowel Sounds, Soft. No: Distention, Tenderness Extremities: Yes: WNL Edema: No Labs: CBC, BMP 04/10/17 06:30 04/10/17 06:30 INR, PTT INR 1.02 (0.82-1.09) 03/29/17 07:00 Problem List - Problems (1) Hemoptysis Code(s): R04.2 - HEMOPTYSIS (2) COPD (chronic obstructive pulmonary disease) Code(s): J44.9 - CHRONIC OBSTRUCTIVE PULMONARY DISEASE, UNSPECIFIED Qualifiers: COPD type: COPD with acute exacerbation Qualified Code(s): J44.1 - Chronic obstructive pulmonary disease with (acute) exacerbation (3) Suprapubic catheter Code(s): Z93.59 - OTHER CYSTOSTOMY STATUS (4) Protein-calorie malnutrition, severe Code(s): E43 - UNSPECIFIED SEVERE PROTEIN-CALORIE MALNUTRITION Assessment/Plan (1) Pneumonia -appreciate ID assistance -continue merrem and vancomycin -full course per ID (2) COPD (chronic obstructive pulmonary disease) Assessment/Plan: -exacerbation with hemoptysis, small amount of hemoptysis today -continue steroid taper per pulmonary, currently on prednisone Code(s): J44.9 - CHRONIC OBSTRUCTIVE PULMONARY DISEASE, UNSPECIFIED Qualifiers: COPD type: COPD with acute exacerbation Qualified Code(s): J44.1 - Chronic obstructive pulmonary disease with (acute) exacerbation (3) Suprapubic catheter Assessment/Plan: -changed by urology Code(s): Z93.59 - OTHER CYSTOSTOMY STATUS (4) Protein-calorie malnutrition, severe Assessment/Plan -continue at current rate, at goal Code(s): E43 - UNSPECIFIED SEVERE PROTEIN-CALORIE MALNUTRITION (5) Hemoptysis -slight amount but minimal -monitor (6) Constipation -bisacodyl suppository
--- NOTE | 2017-04-10 17:10 | PN ---
Progress Note, Physician History of Present Illness: feels slightly better still with cough says small amount of blood noted - Current Medication List Current Medications: Active Medications Acetaminophen (Tylenol -) 325 mg PO Q6H PRN PRN Reason: PAIN OR FEVER Albuterol/Ipratropium (Duoneb -) 1 amp NEB Q4HWA [facility] Last Admin: 04/10/17 14:23 Dose: 1 amp Diazepam (Valium -) 5 mg PEG Q8H PRN PRN Reason: WITHDRAWAL(CONT SUBST) Last Admin: 04/10/17 10:48 Dose: 5 mg Docusate Sodium (Colace Liquid -) 200 mg PO DAILY PRN PRN Reason: CONSTIPATION Last Admin: 04/07/17 14:52 Dose: 200 mg Docusate Sodium (Colace Liquid -) 200 mg PO DAILY [facility] Last Admin: 04/10/17 10:42 Dose: Not Given Vancomycin HCl 1,250 mg/ (Dextrose) 250 mls @ 166.667 mls/hr IVPB DAILY [facility] PRN Reason: Protocol Last Admin: 04/10/17 10:47 Dose: 166.667 mls/hr Meropenem (Merrem (Restricted To Id) -) 1 gm in 20 mls @ 100 mls/hr IVPUSH Q8H- IV [facility] PRN Reason: Protocol Last Admin: 04/10/17 11:07 Dose: 100 mls/hr Oxybutynin Chloride (Ditropan -) 10 mg PO DAILY [facility] Last Admin: 04/10/17 10:47 Dose: 10 mg Polyethylene Glycol (Miralax (For Daily Use) -) 17 gm PEG BID [facility] Last Admin: 04/10/17 10:42 Dose: Not Given Potassium Phos/Sodium Phos (Phos-Nak Packet -) 1 packet PEG BID [facility] Stop: 04/11/17 22:01 Last Admin: 04/10/17 10:59 Dose: 1 packet Prednisone (Deltasone -) 30 mg PO DAILY [facility] Last Admin: 04/10/17 10:47 Dose: 30 mg Ranitidine HCl (Zantac -) 150 mg PO BID [facility] Last Admin: 04/10/17 10:47 Dose: 150 mg Senna (Senna Oral Solution -) 8.8 mg PO HS [facility] Last Admin: 04/09/17 21:41 Dose: 8.8 mg Tramadol HCl (Ultram -) 50 mg PO Q6H PRN Last Admin: 04/09/17 06:15 Dose: 50 mg - Objective Vital Signs: Vital Signs Temperature 97.8 F 04/10/17 09:00 Pulse Rate 70 04/10/17 09:00 Respiratory Rate 19 04/10/17 09:00 Blood Pressure 106/81 04/10/17 09:00 O2 Sat by Pulse Oximetry (%) 98 04/10/17 09:00 Constitutional: Yes: No Distress, Calm Cardiovascular: Yes: Regular Rate and Rhythm Respiratory: Yes: Regular, Rhonchi, Other Gastrointestinal: Yes: Normal Bowel Sounds, Soft, Other (peg in place) Musculoskeletal: Yes: WNL Extremities: Yes: Other Neurological: Yes: Alert, Oriented Psychiatric: Yes: Alert Labs: CBC, BMP 04/10/17 06:30 04/10/17 06:30 INR, PTT INR 1.02 (0.82-1.09) 03/29/17 07:00 Assessment/Plan Problem List - Problems (1) Pneumonia (2) COPD (chronic obstructive pulmonary disease) Code(s): J44.9 - CHRONIC OBSTRUCTIVE PULMONARY DISEASE, UNSPECIFIED Qualifiers: COPD type: COPD with acute exacerbation Qualified Code(s): J44.1 - Chronic obstructive pulmonary disease with (acute) exacerbation (3) Suprapubic catheter Code(s): Z93.59 - OTHER CYSTOSTOMY STATUS (4) Protein-calorie malnutrition, severe Code(s): E43 - UNSPECIFIED SEVERE PROTEIN-CALORIE MALNUTRITION (5) Hemoptysis (6) Constipation plan continue abx continue monitoring nutrition rest as per primary
[2017-04-10] MEDS: SENNOSIDES 8.8 MG/5 ML BULK BOTTLE PO SCH (21:24)
[2017-04-10] MEDS: traMADol HCL 50 MG TABLET PO PRN (21:24)
[2017-04-11] MEDS: MEROPENEM 1 GM PUSH 1 GM/20 ML DISP.SYRIN IVPUSH SCH ×3 (01:57→17:24)
[2017-04-11] MEDS: ALBUTEROL SO4 2.5/IPRATROPIUM 0.5 INH SOL 3 ML VIAL.NEB. NEB SCH ×5 (07:11→22:00)
[2017-04-11 07:55] LABS: ANION GAP 5 (8-16); CO2 34 mmol/L (21-32); CREATININE 0.5 mg/dL (0.7-1.3); GLUCOSE,RANDOM 88 mg/dL (74-106); MAGNESIUM 2.6 mg/dL (1.8-2.4); PHOSPHOROUS 3.3 mg/dL (2.5-4.9)
[2017-04-11 08:22] LABS: BASOPHIL 0.3 % (0-2.0); MCH 32.2 pg (25.7-33.7); MCHC 33.4 g/dl (32.0-35.9); MEAN CELL VOLUME 96.4 fl (80-96); MEAN PLT VOLUME 8.5 fl (7.5-11.1); NEUTROPHILS 75.9 % (42.8-82.8); PLATELET COUNT 193 K/MM3 (134-434); RDW 12.7 % (11.9-15.9); WHITE BLOOD COUNT 12.8 K/mm3 (4.0-10.0)
[2017-04-11] MEDS ORDERED: PT OWN MED DRAWER 7, Y5N ONE ×3 (09:54→17:14)
[2017-04-11] MEDS: NAPH,MB-DB/K PH,MBDB POWDER PACKET PEG SCH ×2 (10:03→21:45)
[2017-04-11] MEDS: predniSONE 10 MG TABLET (UD) PO SCH (10:03)
[2017-04-11] MEDS: OXYBUTYNIN CHLORIDE 5 MG TABLET PO SCH (10:03)
[2017-04-11] MEDS: DOCUSATE NA 100 MG/10 ML UNIT-DOSE CUPS PO SCH (10:03)
[2017-04-11] MEDS: RANITIDINE HCL 150 MG TABLET (FP) PO SCH ×2 (10:03→21:45)
[2017-04-11] MEDS: VANCOMYCIN 1,250 MG in DEXTROSE 5%-WATER - 250 ML IVPB SCH (10:04)
[2017-04-11] MEDS: POLYETHYLENE GLYCOL 3350 119 GM BTL PEG SCH ×2 (10:08→21:47)
[2017-04-11] MEDS: diazePAM 5 MG TABLET PEG PRN ×2 (10:08→21:45)
[2017-04-11] MEDS ORDERED: SIMETHICONE 40 MG/0.6 ML BOTTLE GT PRN (11:00)
--- NOTE | 2017-04-11 11:58 | PN ---
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 He denies any other issues at this time. Denies hemoptysis Current Medications Generic Name Dose Route Start Last Admin Trade Name Freq PRN Reason Stop Dose Admin Acetaminophen 325 mg 04/03/17 15:02 Tylenol - PO Q6H PRN PAIN OR FEVER Albuterol/Ipratropium 1 amp 04/03/17 18:00 04/11/17 10:40 Duoneb - NEB 1 amp Q4HWA [facility] Administration Diazepam 5 mg 04/09/17 10:43 04/11/17 10:08 Valium - PEG 5 mg Q8H PRN Administration WITHDRAWAL(CONT SUBST) Docusate Sodium 200 mg 04/03/17 15:02 04/07/17 14:52 Colace Liquid - PO 200 mg DAILY PRN Administration CONSTIPATION Docusate Sodium 200 mg 04/08/17 12:45 04/11/17 10:03 Colace Liquid - PO 200 mg DAILY [facility] Administration Vancomycin HCl 1,250 mg/ 250 mls @ 166.667 mls/hr 04/08/17 16:00 04/11/17 10: 04 Dextrose IVPB 166.667 mls/hr DAILY [facility] Administration Protocol Meropenem 1 gm in 20 mls @ 100 mls/hr 04/08/17 18:00 04/11/17 10:03 Merrem (Restricted To Id) - IVPUSH 100 mls/hr Q8H-IV [facility] Administration Protocol Oxybutynin Chloride 10 mg 04/04/17 10:00 04/11/17 10:03 Ditropan - PO 10 mg DAILY [facility] Administration Polyethylene Glycol 17 gm 04/08/17 12:45 04/11/17 10:08 Miralax (For Daily Use) - PEG 17 gm BID [facility] Administration Potassium Phos/Sodium Phos 1 packet 04/09/17 13:00 04/11/17 10:03 Phos-Nak Packet - PEG 04/11/17 22:01 1 packet BID [facility] Administration Prednisone 20 mg 04/12/17 10:00 Deltasone - PO DAILY [facility] Ranitidine HCl 150 mg 04/09/17 22:00 04/11/17 10:03 Zantac - PO 150 mg BID [facility] Administration Senna 8.8 mg 04/03/17 22:00 04/10/17 21:24 Senna Oral Solution - PO Not Given HS [facility] Simethicone 40 mg 04/11/17 11:00 Mylicon Liquid - GT QID PRN GAS Tramadol HCl 50 mg 04/06/17 18:00 04/10/17 21:24 Ultram - PO 50 mg Q6H PRN Administration Objective: Vital Signs Period Temp Pulse Resp BP Sys/Marroquin Pulse Ox Last 24 Hr 97.2 F-99.1 F 61-83 16-20 98-124/49-73 96 Physical Exam: General: NAD, dystonia, A&Ox3, temporal wasting, thin Lungs: CTA bilaterally Heart: RRR, S1S2 Abd: +PEG, soft, non-tender Ext: Warm, well-perfused. 2+ DP/PT bilaterally Neuro: Severely dysarthric CBCD WBC 12.8 K/mm3 (4.0-10.0) H 04/11/17 06:50 RBC 3.79 M/mm3 (4.00-5.60) L 04/11/17 06:50 Hgb 12.2 GM/dL (11.7-16.9) 04/11/17 06:50 Hct 36.6 % (35.4-49) 04/11/17 06:50 MCV 96.4 fl (80-96) H 04/11/17 06:50 MCHC 33.4 g/dl (32.0-35.9) 04/11/17 06:50 RDW 12.7 % (11.9-15.9) 04/11/17 06:50 Plt Count 193 K/MM3 (134-434) 04/11/17 06:50 MPV 8.5 fl (7.5-11.1) 04/11/17 06:50 CMP Sodium 140 mmol/L (136-145) 04/11/17 06:50 Potassium 4.2 mmol/L (3.5-5.1) 04/11/17 06:50 Chloride 101 mmol/L (98-107) 04/11/17 06:50 Carbon Dioxide 34 mmol/L (21-32) H 04/11/17 06:50 Anion Gap 5 (8-16) L 04/11/17 06:50 BUN 16 mg/dL (7-18) 04/11/17 06:50 Creatinine 0.5 mg/dL (0.7-1.3) L 04/11/17 06:50 Creat Clearance w eGFR > 60 (>60) 04/07/17 07:30 Random Glucose 88 mg/dL (74-106) 04/11/17 06:50 Calcium 8.0 mg/dL (8.5-10.1) L 04/11/17 06:50 Total Bilirubin 0.4 mg/dL (0.2-1.0) D 04/07/17 07:30 AST 30 U/L (15-37) D 04/07/17 07:30 ALT 89 U/L (12-78) H D 04/07/17 07:30 Alkaline Phosphatase 87 U/L (45-117) 04/07/17 07:30 Total Protein 6.2 g/dl (6.4-8.2) L 04/07/17 07:30 Albumin 3.1 g/dl (3.4-5.0) L 04/07/17 07:30 Microbiology 04/03/17 12:00 Bronchial Brushings Gram Stain - Final 04/03/17 12:00 Bronchial Brushings Bronchoalveolar Lavage Culture - Final Pseudomonas Aeruginosa Diphtheroid/Corynebacterium Mr S Aureus 04/03/17 12:00 Bronchial Washings - Bilateral Lung Fluid AFB Smear Concentration - Final 04/03/17 12:00 Bronchial Washings - Bilateral Lung Fluid Mycobacterial Culture - Preliminary 04/03/17 12:00 Bronchial Washings - Left Upper Lobe CATERINA Preparation - Preliminary 04/03/17 12:00 Bronchial Washings - Left Upper Lobe Fungal Culture - Preliminary 03/29/17 02:00 Blood - Peripheral Venous Blood Culture - Final NO GROWTH AFTER 5 DAYS INCUBATION 03/29/17 02:00 Blood - Peripheral Venous Blood Culture - Final NO GROWTH AFTER 5 DAYS INCUBATION Assessment: This is a 59 year old male with PMHx of COPD, HTN, dystonia, neurogenic bladder (suprapubic catheter), hemoptysis 2/2 bronchiectasis, cervical fusion s/p fracture, GERD, who presented to the ED with hemoptysis x3 days Plan: 1) ID: Pneumonia - WBC elevated today - Remains afebrile - Continue Vancomycin - Continue Meropenem - Appreciate ID consult 2) Pulmonary: Hemoptysis - Resolved - EGD and bronchoscopy on 04/03/17: mild duodenitis, no gastritis or esophagitis. No blood in UGI tract. Bronchoscopy with no blood in airway including lingula at this time Acute COPD exacerbation - Continue steroid taper per pulm - Duonebs prn 3) Dystonia - Continue Valium 4) Neurogenic bladder - Suprapubic catheter draining well 5) F/E/N: - Severe protein calorie malnutrition - Continue tube feeds - Monitor electrolytes 6) Prophylaxis: - SCDs bilaterally - OOB ambulating 7) Dispo: - Requires continued inpatient care CODE STATUS: FULL CODE Visit type - Emergency Visit Emergency Visit: Yes ED Registration Date: 03/28/17 Care time: The patient presented to the Emergency Department on the above date and was hospitalized for further evaluation of their emergent condition. - New Patient This patient is new to me today: Yes Date on this admission: 04/11/17 - Critical Care Critical Care patient: No
[2017-04-11] MEDS: SENNOSIDES 8.8 MG/5 ML BULK BOTTLE PO SCH (21:46)
[2017-04-12] MEDS: MEROPENEM 1 GM PUSH 1 GM/20 ML DISP.SYRIN IVPUSH SCH ×3 (01:55→15:48)
[2017-04-12] MEDS: ALBUTEROL SO4 2.5/IPRATROPIUM 0.5 INH SOL 3 ML VIAL.NEB. NEB SCH ×5 (06:28→22:00)
[2017-04-12 07:52] LABS: MCH 32.3 pg (25.7-33.7); MCHC 33.4 g/dl (32.0-35.9); MEAN CELL VOLUME 96.7 fl (80-96); MEAN PLT VOLUME 8.7 fl (7.5-11.1); PLATELET COUNT 204 K/MM3 (134-434); RDW 12.9 % (11.9-15.9); WHITE BLOOD COUNT 9.9 K/mm3 (4.0-10.0)
[2017-04-12 08:29] LABS: ALBUMIN 3.2 g/dl (3.4-5.0); ANION GAP 5 (8-16); CALCIUM 8.8 mg/dL (8.5-10.1); CO2 35 mmol/L (21-32); GLUCOSE,RANDOM 91 mg/dL (74-106); MAGNESIUM 2.6 mg/dL (1.8-2.4); SGOT/AST 30 U/L (15-37); SGPT/ALT 82 U/L (12-78)
[2017-04-12 08:32] LABS: ALK PHOS 84 U/L (45-117); BILIRUBIN,TOTAL 0.7 mg/dL (0.2-1.0); CREATININE 0.5 mg/dL (0.7-1.3); TOT PROT 6.1 g/dl (6.4-8.2)
[2017-04-12] MEDS ORDERED: PICC LINE 8 ML FLUSH PROTOCOL IVPUSH PRN (09:23)
--- NOTE | 2017-04-12 09:40 | PN ---
Progress Note, Physician History of Present Illness: very unhappy thinks he wants to had dirrhoea - Current Medication List Current Medications: Active Medications Acetaminophen (Tylenol -) 325 mg PO Q6H PRN PRN Reason: PAIN OR FEVER Albuterol/Ipratropium (Duoneb -) 1 amp NEB Q4HWA [facility] Last Admin: 04/12/17 06:28 Dose: 1 amp Diazepam (Valium -) 5 mg PEG Q8H PRN PRN Reason: WITHDRAWAL(CONT SUBST) Last Admin: 04/11/17 21:45 Dose: 5 mg Docusate Sodium (Colace Liquid -) 200 mg PO DAILY PRN PRN Reason: CONSTIPATION Last Admin: 04/07/17 14:52 Dose: 200 mg Docusate Sodium (Colace Liquid -) 200 mg PO DAILY [facility] Last Admin: 04/11/17 10:03 Dose: 200 mg IV Flush (Picc Line Flush) 8 ml IVPUSH PRN PRN PRN Reason: Protocol Vancomycin HCl 1,250 mg/ (Dextrose) 250 mls @ 166.667 mls/hr IVPB DAILY [facility] PRN Reason: Protocol Last Admin: 04/11/17 10:04 Dose: 166.667 mls/hr Meropenem (Merrem (Restricted To Id) -) 1 gm in 20 mls @ 100 mls/hr IVPUSH Q8H- IV [facility] PRN Reason: Protocol Last Admin: 04/12/17 01:57 Dose: 100 mls/hr Oxybutynin Chloride (Ditropan -) 10 mg PO DAILY [facility] Last Admin: 04/11/17 10:03 Dose: 10 mg Polyethylene Glycol (Miralax (For Daily Use) -) 17 gm PEG BID [facility] Last Admin: 04/11/17 21:47 Dose: 17 gm Prednisone (Deltasone -) 20 mg PO DAILY [facility] Ranitidine HCl (Zantac -) 150 mg PO BID [facility] Last Admin: 04/11/17 21:45 Dose: 150 mg Senna (Senna Oral Solution -) 8.8 mg PO HS [facility] Last Admin: 04/11/17 21:46 Dose: 8.8 mg Simethicone (Mylicon Liquid -) 40 mg GT QID PRN PRN Reason: GAS Tramadol HCl (Ultram -) 50 mg PO Q6H PRN Last Admin: 04/10/17 21:24 Dose: 50 mg - Objective Vital Signs: Vital Signs Temperature 98.0 F 04/12/17 04:00 Pulse Rate 78 04/12/17 04:00 Respiratory Rate 18 04/12/17 04:00 Blood Pressure 116/58 04/12/17 04:00 O2 Sat by Pulse Oximetry (%) 97 04/11/17 22:00 Constitutional: Yes: Anxious, Other Cardiovascular: Yes: Regular Rate and Rhythm Respiratory: Yes: Regular Gastrointestinal: Yes: Normal Bowel Sounds, Soft, Other (peg in place) Musculoskeletal: Yes: WNL Extremities: Yes: Other Neurological: Yes: Alert, Oriented Psychiatric: Yes: Alert, Oriented Labs: CBC, BMP 04/12/17 07:00 04/12/17 07:00 INR, PTT INR 1.02 (0.82-1.09) 03/29/17 07:00 Assessment/Plan Problem List - Problems (1) Pneumonia (2) COPD (chronic obstructive pulmonary disease) Code(s): J44.9 - CHRONIC OBSTRUCTIVE PULMONARY DISEASE, UNSPECIFIED Qualifiers: COPD type: COPD with acute exacerbation Qualified Code(s): J44.1 - Chronic obstructive pulmonary disease with (acute) exacerbation (3) Suprapubic catheter Code(s): Z93.59 - OTHER CYSTOSTOMY STATUS (4) Protein-calorie malnutrition, severe Code(s): E43 - UNSPECIFIED SEVERE PROTEIN-CALORIE MALNUTRITION (5) Hemoptysis (6) Constipation 7 depression 8 dirrhoea plan continue abx continue monitoring nutrition if dirrhoea continues for cdiff rest as per primary team
[2017-04-12] MEDS ORDERED: PT OWN MED DRAWER 7, Y5N ONE ×2 (09:59→15:43)
[2017-04-12] MEDS: predniSONE 20 MG TABLET (UD) PO SCH (10:12)
[2017-04-12] MEDS: OXYBUTYNIN CHLORIDE 5 MG TABLET PO SCH (10:12)
[2017-04-12] MEDS: diazePAM 5 MG TABLET PEG PRN ×2 (10:13→22:08)
[2017-04-12] MEDS: VANCOMYCIN 1,250 MG in DEXTROSE 5%-WATER - 250 ML IVPB SCH (10:13)
[2017-04-12] MEDS: RANITIDINE HCL 150 MG TABLET (FP) PO SCH ×2 (10:18→22:08)
[2017-04-12] MEDS: POLYETHYLENE GLYCOL 3350 119 GM BTL PEG SCH ×2 (10:19→22:08)
[2017-04-12] MEDS: DOCUSATE NA 100 MG/10 ML UNIT-DOSE CUPS PO SCH (10:19)
--- NOTE | 2017-04-12 10:32 | PN ---
Progress Note (short form) - Note Progress Note: Medical coverage for Dr. Dos Santos Subjective: The patient was seen and examined at the bedside, he has complaints of diarrhea today. F/u c.diff Current Medications Generic Name Dose Route Start Last Admin Trade Name Freq PRN Reason Stop Dose Admin Acetaminophen 325 mg 04/03/17 15:02 Tylenol - PO Q6H PRN PAIN OR FEVER Albuterol/Ipratropium 1 amp 04/03/17 18:00 04/12/17 06:28 Duoneb - NEB 1 amp Q4HWA [facility] Administration Diazepam 5 mg 04/09/17 10:43 04/12/17 10:13 Valium - PEG 5 mg Q8H PRN Administration WITHDRAWAL(CONT SUBST) Docusate Sodium 200 mg 04/03/17 15:02 04/07/17 14:52 Colace Liquid - PO 200 mg DAILY PRN Administration CONSTIPATION Docusate Sodium 200 mg 04/08/17 12:45 04/12/17 10:19 Colace Liquid - PO Not Given DAILY [facility] IV Flush 8 ml 04/12/17 09:23 Picc Line Flush IVPUSH PRN PRN Protocol Vancomycin HCl 1,250 mg/ 250 mls @ 166.667 mls/hr 04/08/17 16:00 04/12/17 10: 13 Dextrose IVPB 166.667 mls/hr DAILY [facility] Administration Protocol Meropenem 1 gm in 20 mls @ 100 mls/hr 04/08/17 18:00 04/12/17 01:57 Merrem (Restricted To Id) - IVPUSH 100 mls/hr Q8H-IV [facility] Administration Protocol Oxybutynin Chloride 10 mg 04/04/17 10:00 04/12/17 10:12 Ditropan - PO 10 mg DAILY [facility] Administration Polyethylene Glycol 17 gm 04/08/17 12:45 04/12/17 10:19 Miralax (For Daily Use) - PEG Not Given BID [facility] Prednisone 20 mg 04/12/17 10:00 04/12/17 10:12 Deltasone - PO 20 mg DAILY [facility] Administration Ranitidine HCl 150 mg 04/09/17 22:00 04/12/17 10:18 Zantac - PO 150 mg BID [facility] Administration Senna 8.8 mg 04/03/17 22:00 04/11/17 21:46 Senna Oral Solution - PO 8.8 mg HS [facility] Administration Simethicone 40 mg 04/11/17 11:00 Mylicon Liquid - GT QID PRN GAS Tramadol HCl 50 mg 04/06/17 18:00 04/10/17 21:24 Ultram - PO 50 mg Q6H PRN Administration Objective: Vital Signs Period Temp Pulse Resp BP Sys/Marroquin Pulse Ox Last 24 Hr 98.0 F-98.3 F 77-80 18-18 114-125/58-60 97 Physical Exam: General: NAD, dystonia, A&Ox3, temporal wasting, thin Lungs: CTA bilaterally Heart: RRR, S1S2 Abd: +PEG, soft, non-tender Ext: Warm, well-perfused. 2+ DP/PT bilaterally Neuro: Severely dysarthric CBCD WBC 9.9 K/mm3 (4.0-10.0) 04/12/17 07:00 RBC 4.02 M/mm3 (4.00-5.60) 04/12/17 07:00 Hgb 13.0 GM/dL (11.7-16.9) 04/12/17 07:00 Hct 38.9 % (35.4-49) 04/12/17 07:00 MCV 96.7 fl (80-96) H 04/12/17 07:00 MCHC 33.4 g/dl (32.0-35.9) 04/12/17 07:00 RDW 12.9 % (11.9-15.9) 04/12/17 07:00 Plt Count 204 K/MM3 (134-434) 04/12/17 07:00 MPV 8.7 fl (7.5-11.1) 04/12/17 07:00 CMP Sodium 140 mmol/L (136-145) 04/12/17 07:00 Potassium 4.2 mmol/L (3.5-5.1) 04/12/17 07:00 Chloride 100 mmol/L (98-107) 04/12/17 07:00 Carbon Dioxide 35 mmol/L (21-32) H 04/12/17 07:00 Anion Gap 5 (8-16) L 04/12/17 07:00 BUN 14 mg/dL (7-18) 04/12/17 07:00 Creatinine 0.5 mg/dL (0.7-1.3) L 04/12/17 07:00 Creat Clearance w eGFR > 60 (>60) 04/12/17 07:00 Random Glucose 91 mg/dL (74-106) 04/12/17 07:00 Calcium 8.8 mg/dL (8.5-10.1) 04/12/17 07:00 Total Bilirubin 0.7 mg/dL (0.2-1.0) D 04/12/17 07:00 AST 30 U/L (15-37) 04/12/17 07:00 ALT 82 U/L (12-78) H 04/12/17 07:00 Alkaline Phosphatase 84 U/L (45-117) 04/12/17 07:00 Total Protein 6.1 g/dl (6.4-8.2) L 04/12/17 07:00 Albumin 3.2 g/dl (3.4-5.0) L 04/12/17 07:00 Microbiology 04/03/17 12:00 Bronchial Brushings Gram Stain - Final 04/03/17 12:00 Bronchial Brushings Bronchoalveolar Lavage Culture - Final Pseudomonas Aeruginosa Diphtheroid/Corynebacterium Mr S Aureus 04/03/17 12:00 Bronchial Washings - Bilateral Lung Fluid AFB Smear Concentration - Final 04/03/17 12:00 Bronchial Washings - Bilateral Lung Fluid Mycobacterial Culture - Preliminary 04/03/17 12:00 Bronchial Washings - Left Upper Lobe CATERINA Preparation - Preliminary 04/03/17 12:00 Bronchial Washings - Left Upper Lobe Fungal Culture - Preliminary 03/29/17 02:00 Blood - Peripheral Venous Blood Culture - Final NO GROWTH AFTER 5 DAYS INCUBATION 03/29/17 02:00 Blood - Peripheral Venous Blood Culture - Final NO GROWTH AFTER 5 DAYS INCUBATION Assessment: This is a 59 year old male with PMHx of COPD, HTN, dystonia, neurogenic bladder (suprapubic catheter), hemoptysis 2/2 bronchiectasis, cervical fusion s/p fracture, GERD, who presented to the ED with hemoptysis x3 days Plan: 1) ID: Pneumonia - Remains afebrile - Continue Vancomycin - Continue Meropenem - Will need to complete 14 day course of IV abx. Plan for PICC line upon discharge - Appreciate ID consult Diarrhea - F/u C.diff 2) Pulmonary: Hemoptysis - Resolved - EGD and bronchoscopy on 04/03/17: mild duodenitis, no gastritis or esophagitis. No blood in UGI tract. Bronchoscopy with no blood in airway including lingula at this time Acute COPD exacerbation - Continue steroid taper per pulm - Duonebs prn 3) Dystonia - Continue Valium 4) Neurogenic bladder - Suprapubic catheter draining well 5) F/E/N: - Severe protein calorie malnutrition - Continue tube feeds - Monitor electrolytes 6) Prophylaxis: - SCDs bilaterally - OOB ambulating 7) Dispo: - Discharge held today 2/2 diarrhea, c.diff sent - The patient report he wants to explore the option of stopping his feeds and going into hospice. He states he will think about it. F/u palliative care consult - Requires continued inpatient care CODE STATUS: FULL CODE Visit type - Emergency Visit Emergency Visit: Yes ED Registration Date: 03/28/17 Care time: The patient presented to the Emergency Department on the above date and was hospitalized for further evaluation of their emergent condition. - New Patient This patient is new to me today: No - Critical Care Critical Care patient: No
--- NOTE | 2017-04-12 10:39 | PN ---
Progress Note (short form) - Note Progress Note: PULMONARY APPEARS STABLE NO CHANGE IN EXAM NO HEMOPTYSIS LABS/MEDS/NOTES REVIEWED Hemoptysis resolved COPD Bronchiectasis Dystonia HTN Neurogenic Bladder Suprapubic Catheter GERD - changed medrol to oral prednisone tapering - antibiotics as per ID - inhaled bronchodilators - O2 as needed - mechanical DVT prophylaxis - sadie GAYTAN MD
[2017-04-12] MEDS: traMADol HCL 50 MG TABLET PO PRN (11:50)
[2017-04-12] MEDS: SENNOSIDES 8.8 MG/5 ML BULK BOTTLE PO SCH (22:08)
[2017-04-13] MEDS: MEROPENEM 1 GM PUSH 1 GM/20 ML DISP.SYRIN IVPUSH SCH ×3 (01:40→17:51)
[2017-04-13] MEDS: ALBUTEROL SO4 2.5/IPRATROPIUM 0.5 INH SOL 3 ML VIAL.NEB. NEB SCH ×5 (06:12→22:23)
[2017-04-13] MEDS ORDERED: PT OWN MED DRAWER 7, Y5N ONE (09:26)
[2017-04-13] MEDS: predniSONE 20 MG TABLET (UD) PO SCH (09:38)
[2017-04-13] MEDS: RANITIDINE HCL 150 MG TABLET (FP) PO SCH ×2 (09:38→22:10)
[2017-04-13] MEDS: diazePAM 5 MG TABLET PEG PRN ×2 (09:38→22:09)
[2017-04-13] MEDS: OXYBUTYNIN CHLORIDE 5 MG TABLET PO SCH (09:38)
[2017-04-13] MEDS: DOCUSATE NA 100 MG/10 ML UNIT-DOSE CUPS PO SCH (09:39)
[2017-04-13] MEDS: POLYETHYLENE GLYCOL 3350 119 GM BTL PEG SCH ×2 (09:39→22:18)
--- NOTE | 2017-04-13 10:18 | PN ---
Progress Note, Physician History of Present Illness: This morning so far has not had diarrhea. Breathing feeling OK this morning. - Current Medication List Current Medications: Active Medications Acetaminophen (Tylenol -) 325 mg PO Q6H PRN PRN Reason: PAIN OR FEVER Albuterol/Ipratropium (Duoneb -) 1 amp NEB Q4HWA [facility] Last Admin: 04/13/17 06:12 Dose: Not Given Diazepam (Valium -) 5 mg PEG Q8H PRN PRN Reason: WITHDRAWAL(CONT SUBST) Last Admin: 04/13/17 09:38 Dose: 5 mg Docusate Sodium (Colace Liquid -) 200 mg PO DAILY PRN PRN Reason: CONSTIPATION Last Admin: 04/07/17 14:52 Dose: 200 mg Docusate Sodium (Colace Liquid -) 200 mg PO DAILY [facility] Last Admin: 04/13/17 09:39 Dose: Not Given IV Flush (Picc Line Flush) 8 ml IVPUSH PRN PRN PRN Reason: Protocol Vancomycin HCl 1,250 mg/ (Dextrose) 250 mls @ 166.667 mls/hr IVPB DAILY [facility] PRN Reason: Protocol Last Admin: 04/12/17 10:13 Dose: 166.667 mls/hr Meropenem (Merrem (Restricted To Id) -) 1 gm in 20 mls @ 100 mls/hr IVPUSH Q8H- IV [facility]SVIN PRN Reason: Protocol Last Admin: 04/13/17 09:38 Dose: Not Given Oxybutynin Chloride (Ditropan -) 10 mg PO DAILY [facility] Last Admin: 04/13/17 09:38 Dose: 10 mg Polyethylene Glycol (Miralax (For Daily Use) -) 17 gm PEG BID [facility] Last Admin: 04/13/17 09:39 Dose: Not Given Prednisone (Deltasone -) 20 mg PO DAILY [facility] Last Admin: 04/13/17 09:38 Dose: 20 mg Ranitidine HCl (Zantac -) 150 mg PO BID [facility] Last Admin: 04/13/17 09:38 Dose: 150 mg Senna (Senna Oral Solution -) 8.8 mg PO HS [facility] Last Admin: 04/12/17 22:08 Dose: Not Given Simethicone (Mylicon Liquid -) 40 mg GT QID PRN PRN Reason: GAS Tramadol HCl (Ultram -) 50 mg PO Q6H PRN Last Admin: 04/12/17 11:50 Dose: 50 mg - Objective Vital Signs: Vital Signs Temperature 98.4 F 04/13/17 09:40 Pulse Rate 63 04/13/17 09:40 Respiratory Rate 20 04/13/17 09:40 Blood Pressure 105/70 04/13/17 09:40 O2 Sat by Pulse Oximetry (%) 97 04/12/17 21:00 Constitutional: Yes: No Distress, Calm Eyes: Yes: Conjunctiva Clear, EOM Intact, PERRL Neck: Yes: Supple, Trachea Midline Cardiovascular: Yes: Regular Rate and Rhythm, S1, S2. No: Murmur Respiratory: Yes: Regular, CTA Bilaterally. No: Rales, Rhonchi, Wheezes Gastrointestinal: Yes: Normal Bowel Sounds, Soft, Tenderness (,mild, in lower quadrants), Other (NG tube present) Edema: No Neurological: Yes: Alert, Oriented Labs: CBC, BMP 04/12/17 07:00 04/12/17 07:00 INR, PTT INR 1.02 (0.82-1.09) 03/29/17 07:00 Assessment/Plan Current Active Problems Diarrhea Hemoptysis (Acute) Protein-calorie malnutrition, severe (Acute) Dystonia HTN Neurogenic Bladder COPD/Asthma -observe for c. diff cultures -on abx for bronchiectasis/ chronic bronchitis
[2017-04-13] MEDS: VANCOMYCIN 1,250 MG in DEXTROSE 5%-WATER - 250 ML IVPB SCH (11:01)
--- NOTE | 2017-04-13 11:29 | PN ---
Progress Note (short form) - Note Progress Note: Breathing feels ok. Less cough. No hemoptysis. Intake & Output 04/10/17 04/11/17 04/12/17 04/13/17 23:59 23:59 23:59 23:59 Intake Total 2115 2310 425 175 Output Total 2700 1325 900 400 Balance -585 985 -971 -225 Last Vital Signs Temp Pulse Resp BP Pulse Ox 98.4 F 63 20 105/70 97 04/13/17 09:40 04/13/17 09:40 04/13/17 09:40 04/13/17 09:40 04/12/17 21:00 Active Medications Acetaminophen (Tylenol -) 325 mg PO Q6H PRN PRN Reason: PAIN OR FEVER Albuterol/Ipratropium (Duoneb -) 1 amp NEB Q4HWA [facility] Last Admin: 04/13/17 10:38 Dose: 1 amp Diazepam (Valium -) 5 mg PEG Q8H PRN PRN Reason: WITHDRAWAL(CONT SUBST) Last Admin: 04/13/17 09:38 Dose: 5 mg Docusate Sodium (Colace Liquid -) 200 mg PO DAILY PRN PRN Reason: CONSTIPATION Last Admin: 04/07/17 14:52 Dose: 200 mg Docusate Sodium (Colace Liquid -) 200 mg PO DAILY [facility] Last Admin: 04/13/17 09:39 Dose: Not Given IV Flush (Picc Line Flush) 8 ml IVPUSH PRN PRN PRN Reason: Protocol Vancomycin HCl 1,250 mg/ (Dextrose) 250 mls @ 166.667 mls/hr IVPB DAILY [facility] PRN Reason: Protocol Last Admin: 04/13/17 11:01 Dose: 166.667 mls/hr Meropenem (Merrem (Restricted To Id) -) 1 gm in 20 mls @ 100 mls/hr IVPUSH Q8H- IV [facility]SVIN PRN Reason: Protocol Last Admin: 04/13/17 09:38 Dose: Not Given Oxybutynin Chloride (Ditropan -) 10 mg PO DAILY [facility] Last Admin: 04/13/17 09:38 Dose: 10 mg Polyethylene Glycol (Miralax (For Daily Use) -) 17 gm PEG BID [facility] Last Admin: 04/13/17 09:39 Dose: Not Given Prednisone (Deltasone -) 20 mg PO DAILY [facility] Last Admin: 04/13/17 09:38 Dose: 20 mg Ranitidine HCl (Zantac -) 150 mg PO BID [facility] Last Admin: 04/13/17 09:38 Dose: 150 mg Senna (Senna Oral Solution -) 8.8 mg PO HS [facility] Last Admin: 04/12/17 22:08 Dose: Not Given Simethicone (Mylicon Liquid -) 40 mg GT QID PRN PRN Reason: GAS Tramadol HCl (Ultram -) 50 mg PO Q6H PRN Last Admin: 04/12/17 11:50 Dose: 50 mg Constitutional: Yes: Calm, Cachectic Eyes: Yes: WNL HENT: Yes: WNL Neck: Yes: WNL Cardiovascular: Yes: Regular Rate and Rhythm, S1, S2 Respiratory: Yes: Diminished Gastrointestinal: Yes: Normal Bowel Sounds, Soft Extremities: Yes: WNL Edema: No Labs: Laboratory Results - last 24 hr 04/13/17 06:38 Vancomycin Pre-Dose 11.571 H D Assessment/Plan Resolved Hemoptysis PNA COPD Bronchiectasis Dystonia HTN Neurogenic Bladder Suprapubic Catheter GERD - Prednisone - ABX per ID - inhaled bronchodilators - O2 as needed - VTE prophylaxis Dr Bolton
[2017-04-13] MEDS: traMADol HCL 50 MG TABLET PO PRN (15:07)
--- NOTE | 2017-04-13 16:10 | PN ---
Progress Note, Physician Chief Complaint: ID f/u note: History of Present Illness: Pt seen and examined, events noted, lab/imaging results reviewed. This is a 61 yr old male with COPD, GERD, HTN, neurogenic bladder with SPC, peg tube admitted for hemoptysis. Bronchoscopy specimens revealed growth of pseudomonas and MRSA. Patient is currently on antibiotics, without complaints of cough or dyspnea. No diarrhea today. - Current Medication List Current Medications: Active Medications Acetaminophen (Tylenol -) 325 mg PO Q6H PRN PRN Reason: PAIN OR FEVER Albuterol/Ipratropium (Duoneb -) 1 amp NEB Q4HWA [facility] Last Admin: 04/13/17 14:17 Dose: 1 amp Diazepam (Valium -) 5 mg PEG Q8H PRN PRN Reason: WITHDRAWAL(CONT SUBST) Last Admin: 04/13/17 09:38 Dose: 5 mg Docusate Sodium (Colace Liquid -) 200 mg PO DAILY PRN PRN Reason: CONSTIPATION Last Admin: 04/07/17 14:52 Dose: 200 mg Docusate Sodium (Colace Liquid -) 200 mg PO DAILY [facility] Last Admin: 04/13/17 09:39 Dose: Not Given IV Flush (Picc Line Flush) 8 ml IVPUSH PRN PRN PRN Reason: Protocol Vancomycin HCl 1,250 mg/ (Dextrose) 250 mls @ 166.667 mls/hr IVPB DAILY [facility] PRN Reason: Protocol Last Admin: 04/13/17 11:01 Dose: 166.667 mls/hr Meropenem (Merrem (Restricted To Id) -) 1 gm in 20 mls @ 100 mls/hr IVPUSH Q8H- IV ESVIN PRN Reason: Protocol Last Admin: 04/13/17 09:38 Dose: Not Given Oxybutynin Chloride (Ditropan -) 10 mg PO DAILY [facility] Last Admin: 04/13/17 09:38 Dose: 10 mg Polyethylene Glycol (Miralax (For Daily Use) -) 17 gm PEG BID [facility] Last Admin: 04/13/17 09:39 Dose: Not Given Prednisone (Deltasone -) 20 mg PO DAILY [facility] Last Admin: 04/13/17 09:38 Dose: 20 mg Ranitidine HCl (Zantac -) 150 mg PO BID [facility] Last Admin: 11/25/17 09:38 Dose: 150 mg Senna (Senna Oral Solution -) 8.8 mg PO HS [facility] Last Admin: 04/12/17 22:08 Dose: Not Given Simethicone (Mylicon Liquid -) 40 mg GT QID PRN PRN Reason: GAS Tramadol HCl (Ultram -) 50 mg PO Q6H PRN Last Admin: 04/13/17 15:07 Dose: 50 mg - Objective Vital Signs: Vital Signs Temperature 98.2 F 04/13/17 14:22 Pulse Rate 60 04/13/17 14:22 Respiratory Rate 18 04/13/17 14:22 Blood Pressure 97/64 04/13/17 14:22 O2 Sat by Pulse Oximetry (%) 97 04/12/17 21:00 Constitutional: Yes: No Distress, Calm Neck: Yes: Supple Cardiovascular: Yes: Regular Rate and Rhythm Respiratory: Yes: CTA Bilaterally Gastrointestinal: Yes: Normal Bowel Sounds, Soft, Other (GT) Genitourinary: Yes: Other (suprapubic catheter draining clear yellow urine) Extremities: Yes: WNL Integumentary: Yes: WNL Neurological: Yes: Alert Labs: CBC, BMP 04/12/17 07:00 04/12/17 07:00 INR, PTT INR 1.02 (0.82-1.09) 03/29/17 07:00 Microbiology 04/03/17 12:00 Bronchial Brushings Gram Stain - Final 04/03/17 12:00 Bronchial Brushings Bronchoalveolar Lavage Culture - Final Pseudomonas Aeruginosa Diphtheroid/Corynebacterium Mr S Aureus 04/03/17 12:00 Bronchial Washings - Bilateral Lung Fluid AFB Smear Concentration - Final 04/03/17 12:00 Bronchial Washings - Bilateral Lung Fluid Mycobacterial Culture - Preliminary 04/03/17 12:00 Bronchial Washings - Left Upper Lobe CATERINA Preparation - Preliminary 04/03/17 12:00 Bronchial Washings - Left Upper Lobe Fungal Culture - Preliminary 03/29/17 02:00 Blood - Peripheral Venous Blood Culture - Final NO GROWTH AFTER 5 DAYS INCUBATION 03/29/17 02:00 Blood - Peripheral Venous Blood Culture - Final NO GROWTH AFTER 5 DAYS INCUBATION - ....Imaging Chest X-ray: Report Reviewed Cat Scan: Report Reviewed Problem List - Problems (1) Hemoptysis Code(s): R04.2 - HEMOPTYSIS (2) Protein-calorie malnutrition, severe Code(s): E43 - UNSPECIFIED SEVERE PROTEIN-CALORIE MALNUTRITION (3) Asthma Code(s): J45.909 - UNSPECIFIED ASTHMA, UNCOMPLICATED (4) COPD (chronic obstructive pulmonary disease) Code(s): J44.9 - CHRONIC OBSTRUCTIVE PULMONARY DISEASE, UNSPECIFIED Qualifiers: COPD type: COPD with acute exacerbation Qualified Code(s): J44.1 - Chronic obstructive pulmonary disease with (acute) exacerbation (5) HTN (hypertension) Code(s): I10 - ESSENTIAL (PRIMARY) HYPERTENSION Qualifiers: (6) Percutaneous endoscopic gastrostomy status Code(s): Z93.1 - GASTROSTOMY STATUS (7) Pneumonia Code(s): J18.9 - PNEUMONIA, UNSPECIFIED ORGANISM Qualifiers: (8) Suprapubic catheter Code(s): Z93.59 - OTHER CYSTOSTOMY STATUS Assessment/Plan Pt appears to be doing well continue current antibiotics, would suggest total of 2 wks each continue monitor
[2017-04-13] MEDS: SENNOSIDES 8.8 MG/5 ML BULK BOTTLE PO SCH (22:18)
[2017-04-14] MEDS: MEROPENEM 1 GM PUSH 1 GM/20 ML DISP.SYRIN IVPUSH SCH ×3 (02:18→18:11)
[2017-04-14] MEDS: ALBUTEROL SO4 2.5/IPRATROPIUM 0.5 INH SOL 3 ML VIAL.NEB. NEB SCH ×5 (06:10→22:24)
[2017-04-14 07:48] LABS: BASOPHIL 0.3 % (0-2.0); EOSINOPHIL 1.8 % (0-4.5); MCH 32.5 pg (25.7-33.7); MCHC 33.2 g/dl (32.0-35.9); MEAN CELL VOLUME 97.7 fl (80-96); MEAN PLT VOLUME 8.5 fl (7.5-11.1); NEUTROPHILS 65.3 % (42.8-82.8); PLATELET COUNT 189 K/MM3 (134-434); WHITE BLOOD COUNT 8.7 K/mm3 (4.0-10.0)
[2017-04-14 08:46] LABS: CREATININE 0.6 mg/dL (0.7-1.3); GLUCOSE,RANDOM 82 mg/dL (74-106)
[2017-04-14 08:47] LABS: ALBUMIN 2.9 g/dl (3.4-5.0); ALK PHOS 79 U/L (45-117); ANION GAP 6 (8-16); BILIRUBIN,TOTAL 0.7 mg/dL (0.2-1.0); CALCIUM 8.2 mg/dL (8.5-10.1); CO2 33 mmol/L (21-32); SGOT/AST 28 U/L (15-37); SGPT/ALT 75 U/L (12-78); TOT PROT 5.7 g/dl (6.4-8.2)
[2017-04-14] MEDS ORDERED: PT OWN MED DRAWER 7, Y5N ONE (10:00)
[2017-04-14] MEDS: diazePAM 5 MG TABLET PEG PRN ×2 (10:04→21:43)
[2017-04-14] MEDS: predniSONE 20 MG TABLET (UD) PO SCH (10:04)
[2017-04-14] MEDS: VANCOMYCIN 1,250 MG in DEXTROSE 5%-WATER - 250 ML IVPB SCH (10:04)
[2017-04-14] MEDS: RANITIDINE HCL 150 MG TABLET (FP) PO SCH ×2 (10:04→21:43)
[2017-04-14] MEDS: OXYBUTYNIN CHLORIDE 5 MG TABLET PO SCH (10:04)
[2017-04-14] MEDS: POLYETHYLENE GLYCOL 3350 119 GM BTL PEG SCH ×2 (10:05→21:44)
[2017-04-14] MEDS: DOCUSATE NA 100 MG/10 ML UNIT-DOSE CUPS PO SCH (10:05)
--- NOTE | 2017-04-14 10:54 | PN ---
Progress Note, Physician History of Present Illness: Having less diarrhea now, stool more formed now. Coughing is improved. - Current Medication List Current Medications: Active Medications Acetaminophen (Tylenol -) 325 mg PO Q6H PRN PRN Reason: PAIN OR FEVER Albuterol/Ipratropium (Duoneb -) 1 amp NEB Q4HWA [facility] Last Admin: 04/14/17 10:36 Dose: 1 amp Diazepam (Valium -) 5 mg PEG Q8H PRN PRN Reason: WITHDRAWAL(CONT SUBST) Last Admin: 04/14/17 10:04 Dose: 5 mg Docusate Sodium (Colace Liquid -) 200 mg PO DAILY PRN PRN Reason: CONSTIPATION Last Admin: 04/07/17 14:52 Dose: 200 mg Docusate Sodium (Colace Liquid -) 200 mg PO DAILY [facility] Last Admin: 04/14/17 10:05 Dose: Not Given IV Flush (Picc Line Flush) 8 ml IVPUSH PRN PRN PRN Reason: Protocol Vancomycin HCl 1,250 mg/ (Dextrose) 250 mls @ 166.667 mls/hr IVPB DAILY [facility] PRN Reason: Protocol Last Admin: 04/14/17 10:04 Dose: 166.667 mls/hr Meropenem (Merrem (Restricted To Id) -) 1 gm in 20 mls @ 100 mls/hr IVPUSH Q8H- IV ESVIN PRN Reason: Protocol Last Admin: 04/14/17 10:05 Dose: Not Given Oxybutynin Chloride (Ditropan -) 10 mg PO DAILY [facility] Last Admin: 04/14/17 10:04 Dose: 10 mg Polyethylene Glycol (Miralax (For Daily Use) -) 17 gm PEG BID [facility] Last Admin: 04/14/17 10:05 Dose: Not Given Prednisone (Deltasone -) 20 mg PO DAILY [facility] Last Admin: 04/14/17 10:04 Dose: 20 mg Ranitidine HCl (Zantac -) 150 mg PO BID [facility] Last Admin: 04/14/17 10:04 Dose: 150 mg Senna (Senna Oral Solution -) 8.8 mg PO HS [facility] Last Admin: 04/13/17 22:18 Dose: Not Given Simethicone (Mylicon Liquid -) 40 mg GT QID PRN PRN Reason: GAS Tramadol HCl (Ultram -) 50 mg PO Q6H PRN Last Admin: 04/13/17 15:07 Dose: 50 mg - Objective Vital Signs: Vital Signs Temperature 97.9 F 04/14/17 09:00 Pulse Rate 86 04/14/17 09:00 Respiratory Rate 20 04/14/17 09:00 Blood Pressure 124/68 04/14/17 09:00 O2 Sat by Pulse Oximetry (%) 97 04/13/17 21:00 Constitutional: Yes: No Distress, Calm HENT: Yes: Atraumatic, Normocephalic Neck: Yes: Supple, Trachea Midline Cardiovascular: Yes: Regular Rate and Rhythm, S1, S2. No: Murmur Respiratory: Yes: Regular, CTA Bilaterally. No: Wheezes Gastrointestinal: Yes: Normal Bowel Sounds, Soft, Tenderness (mild lower quadrant tenderness), Other (PEG tube). No: Distention Edema: No Neurological: Yes: Alert, Oriented Labs: CBC, BMP 04/14/17 06:20 04/14/17 06:20 INR, PTT INR 1.02 (0.82-1.09) 03/29/17 07:00 Assessment/Plan Current Active Problems Diarrhea Hemoptysis (Acute) Protein-calorie malnutrition, severe (Acute) Dystonia HTN Neurogenic Bladder COPD/Asthma -on abx for bronchiectasis/ chronic bronchitis -will need 2 weeks of Vanco/ meropenem (started on 04/08) -d/c planning -will need shelter rehab facility, would like to consider another rehab facility (currently at [facility]) -will then need PICC line to continue abx until 04/22/17.
--- NOTE | 2017-04-14 11:32 | PN ---
Progress Note (short form) - Note Progress Note: Breathing feels ok. Less cough. No hemoptysis. Diarrhea better. Intake & Output 04/11/17 04/12/17 04/13/17 04/14/17 23:59 23:59 23:59 23:59 Intake Total 2310 425 1685 Output Total 1325 900 600 500 Balance 985 -475 1085 -500 Last Vital Signs Temp Pulse Resp BP Pulse Ox 97.9 F 86 20 124/68 97 04/14/17 09:00 04/14/17 09:00 04/14/17 09:00 04/14/17 09:00 04/13/17 21:00 Active Medications Acetaminophen (Tylenol -) 325 mg PO Q6H PRN PRN Reason: PAIN OR FEVER Albuterol/Ipratropium (Duoneb -) 1 amp NEB Q4HWA [facility] Last Admin: 04/14/17 10:36 Dose: 1 amp Diazepam (Valium -) 5 mg PEG Q8H PRN PRN Reason: WITHDRAWAL(CONT SUBST) Last Admin: 04/14/17 10:04 Dose: 5 mg Docusate Sodium (Colace Liquid -) 200 mg PO DAILY PRN PRN Reason: CONSTIPATION Last Admin: 04/07/17 14:52 Dose: 200 mg Docusate Sodium (Colace Liquid -) 200 mg PO DAILY [facility] Last Admin: 04/14/17 10:05 Dose: Not Given IV Flush (Picc Line Flush) 8 ml IVPUSH PRN PRN PRN Reason: Protocol Vancomycin HCl 1,250 mg/ (Dextrose) 250 mls @ 166.667 mls/hr IVPB DAILY [facility] PRN Reason: Protocol Last Admin: 04/14/17 10:04 Dose: 166.667 mls/hr Meropenem (Merrem (Restricted To Id) -) 1 gm in 20 mls @ 100 mls/hr IVPUSH Q8H- IV [facility]IN PRN Reason: Protocol Last Admin: 04/14/17 10:05 Dose: Not Given Oxybutynin Chloride (Ditropan -) 10 mg PO DAILY [facility] Last Admin: 04/14/17 10:04 Dose: 10 mg Polyethylene Glycol (Miralax (For Daily Use) -) 17 gm PEG BID [facility] Last Admin: 04/14/17 10:05 Dose: Not Given Prednisone (Deltasone -) 20 mg PO DAILY [facility] Last Admin: 04/14/17 10:04 Dose: 20 mg Ranitidine HCl (Zantac -) 150 mg PO BID [facility] Last Admin: 04/14/17 10:04 Dose: 150 mg Senna (Senna Oral Solution -) 8.8 mg PO HS [facility] Last Admin: 04/13/17 22:18 Dose: Not Given Simethicone (Mylicon Liquid -) 40 mg GT QID PRN PRN Reason: GAS Tramadol HCl (Ultram -) 50 mg PO Q6H PRN Last Admin: 04/13/17 15:07 Dose: 50 mg Constitutional: Yes: NAD, Cachectic Eyes: Yes: WNL HENT: Yes: WNL Neck: Yes: WNL Cardiovascular: Yes: Regular Rate and Rhythm, S1, S2 Respiratory: Yes: Diminished Gastrointestinal: Yes: Normal Bowel Sounds, Soft Extremities: Yes: WNL Edema: No Labs: Laboratory Results - last 24 hr 04/14/17 04/14/17 06:20 06:20 WBC 8.7 RBC 3.71 L Hgb 12.0 Hct 36.2 MCV 97.7 H MCH 32.5 MCHC 33.2 RDW 13.0 Plt Count 189 MPV 8.5 Neutrophils % 65.3 Lymphocytes % 23.3 D Monocytes % 9.3 Eosinophils % 1.8 Basophils % 0.3 Sodium 140 Potassium 4.0 Chloride 101 Carbon Dioxide 33 H Anion Gap 6 L BUN 18 D Creatinine 0.6 L Creat Clearance w eGFR > 60 Random Glucose 82 Calcium 8.2 L Total Bilirubin 0.7 AST 28 ALT 75 Alkaline Phosphatase 79 Total Protein 5.7 L Albumin 2.9 L Assessment/Plan Resolved Hemoptysis PNA COPD Bronchiectasis Dystonia HTN Neurogenic Bladder Suprapubic Catheter GERD - Prednisone - ABX per ID - inhaled bronchodilators - O2 as needed - VTE prophylaxis Dr Bolton
[2017-04-14] MEDS: traMADol HCL 50 MG TABLET PO PRN ×2 (12:01→21:43)
--- NOTE | 2017-04-14 17:30 | PN ---
Progress Note, Physician History of Present Illness: Pt seen and examined. Denies shortness of breath, reports less cough/ hemoptysis. No fever or chills. Informed by RN that he has been refusing the Meropenem but receiving Vancomycin. States he does not want to take it because it was causing diarrhea. Denies abd pain or cramping. - Current Medication List Current Medications: Active Medications Acetaminophen (Tylenol -) 325 mg PO Q6H PRN PRN Reason: PAIN OR FEVER Albuterol/Ipratropium (Duoneb -) 1 amp NEB Q4HWA [facility] Last Admin: 04/14/17 14:00 Dose: 1 amp Diazepam (Valium -) 5 mg PEG Q8H PRN PRN Reason: WITHDRAWAL(CONT SUBST) Last Admin: 04/14/17 10:04 Dose: 5 mg Docusate Sodium (Colace Liquid -) 200 mg PO DAILY PRN PRN Reason: CONSTIPATION Last Admin: 04/07/17 14:52 Dose: 200 mg Docusate Sodium (Colace Liquid -) 200 mg PO DAILY [facility] Last Admin: 04/14/17 10:05 Dose: Not Given IV Flush (Picc Line Flush) 8 ml IVPUSH PRN PRN PRN Reason: Protocol Vancomycin HCl 1,250 mg/ (Dextrose) 250 mls @ 166.667 mls/hr IVPB DAILY [facility] PRN Reason: Protocol Last Admin: 04/14/17 10:04 Dose: 166.667 mls/hr Meropenem (Merrem (Restricted To Id) -) 1 gm in 20 mls @ 100 mls/hr IVPUSH Q8H- IV [facility] PRN Reason: Protocol Last Admin: 04/14/17 10:05 Dose: Not Given Oxybutynin Chloride (Ditropan -) 10 mg PO DAILY [facility] Last Admin: 04/14/17 10:04 Dose: 10 mg Polyethylene Glycol (Miralax (For Daily Use) -) 17 gm PEG BID [facility] Last Admin: 04/14/17 10:05 Dose: Not Given Prednisone (Deltasone -) 20 mg PO DAILY [facility] Last Admin: 04/14/17 10:04 Dose: 20 mg Ranitidine HCl (Zantac -) 150 mg PO BID [facility] Last Admin: 04/14/17 10:04 Dose: 150 mg Senna (Senna Oral Solution -) 8.8 mg PO HS [facility] Last Admin: 04/13/17 22:18 Dose: Not Given Simethicone (Mylicon Liquid -) 40 mg GT QID PRN PRN Reason: GAS Tramadol HCl (Ultram -) 50 mg PO Q6H PRN Last Admin: 04/14/17 12:01 Dose: 50 mg - Objective Vital Signs: Vital Signs Temperature 98.6 F 04/14/17 14:39 Pulse Rate 61 04/14/17 14:39 Respiratory Rate 20 04/14/17 14:39 Blood Pressure 100/65 04/14/17 14:39 O2 Sat by Pulse Oximetry (%) 97 04/13/17 21:00 Constitutional: Yes: No Distress, Calm Neck: Yes: Supple Cardiovascular: Yes: Regular Rate and Rhythm Respiratory: Yes: Diminished Gastrointestinal: Yes: Normal Bowel Sounds, Soft, Other (+GT) Genitourinary: Yes: Other (suprapubic catheter draining clear yellow urine) Extremities: Yes: WNL Integumentary: Yes: WNL Psychiatric: Yes: Alert Labs: CBC, BMP 04/14/17 06:20 04/14/17 06:20 INR, PTT INR 1.02 (0.82-1.09) 03/29/17 07:00 Problem List - Problems (1) Hemoptysis Code(s): R04.2 - HEMOPTYSIS (2) Protein-calorie malnutrition, severe Code(s): E43 - UNSPECIFIED SEVERE PROTEIN-CALORIE MALNUTRITION (3) Asthma Code(s): J45.909 - UNSPECIFIED ASTHMA, UNCOMPLICATED (4) COPD (chronic obstructive pulmonary disease) Code(s): J44.9 - CHRONIC OBSTRUCTIVE PULMONARY DISEASE, UNSPECIFIED Qualifiers: COPD type: COPD with acute exacerbation Qualified Code(s): J44.1 - Chronic obstructive pulmonary disease with (acute) exacerbation (5) HTN (hypertension) Code(s): I10 - ESSENTIAL (PRIMARY) HYPERTENSION Qualifiers: (6) Percutaneous endoscopic gastrostomy status Code(s): Z93.1 - GASTROSTOMY STATUS (7) Pneumonia Code(s): J18.9 - PNEUMONIA, UNSPECIFIED ORGANISM Qualifiers: (8) Suprapubic catheter Code(s): Z93.59 - OTHER CYSTOSTOMY STATUS Assessment/Plan Hemoptysis resolving Afebrile Pt refusing Meropenem d/w pt the importance of compliance - agrees to take meropenem, continue vancomycin if diarrhea recurs would suggest immodium continue monitor renal function, vitals
[2017-04-14] MEDS: SENNOSIDES 8.8 MG/5 ML BULK BOTTLE PO SCH (21:44)
[2017-04-15] MEDS: MEROPENEM 1 GM PUSH 1 GM/20 ML DISP.SYRIN IVPUSH SCH ×3 (02:51→17:57)
[2017-04-15] MEDS: traMADol HCL 50 MG TABLET PO PRN ×2 (05:56→21:09)
[2017-04-15] MEDS: ALBUTEROL SO4 2.5/IPRATROPIUM 0.5 INH SOL 3 ML VIAL.NEB. NEB SCH ×5 (06:37→22:30)
[2017-04-15 07:36] LABS: BASOPHIL 0.5 % (0-2.0); EOSINOPHIL 1.8 % (0-4.5); MCH 32.3 pg (25.7-33.7); MCHC 33.2 g/dl (32.0-35.9); MEAN CELL VOLUME 97.3 fl (80-96); MEAN PLT VOLUME 8.3 fl (7.5-11.1); NEUTROPHILS 63.2 % (42.8-82.8); PLATELET COUNT 182 K/MM3 (134-434); RDW 12.5 % (11.9-15.9); WHITE BLOOD COUNT 7.9 K/mm3 (4.0-10.0)
[2017-04-15 08:32] LABS: ALBUMIN 3.1 g/dl (3.4-5.0); ALK PHOS 77 U/L (45-117); ANION GAP 6 (8-16); BILIRUBIN,TOTAL 0.6 mg/dL (0.2-1.0); CALCIUM 8.8 mg/dL (8.5-10.1); CO2 34 mmol/L (21-32); CREATININE 0.5 mg/dL (0.7-1.3); GLUCOSE,RANDOM 94 mg/dL (74-106); SGOT/AST 35 U/L (15-37); SGPT/ALT 84 U/L (12-78); TOT PROT 5.6 g/dl (6.4-8.2)
[2017-04-15] MEDS ORDERED: PT OWN MED DRAWER 7, Y5N ONE (09:05)
[2017-04-15] MEDS: OXYBUTYNIN CHLORIDE 5 MG TABLET PO SCH (09:13)
[2017-04-15] MEDS: predniSONE 20 MG TABLET (UD) PO SCH (09:13)
[2017-04-15] MEDS: RANITIDINE HCL 150 MG TABLET (FP) PO SCH ×2 (09:13→21:09)
[2017-04-15] MEDS: DOCUSATE NA 100 MG/10 ML UNIT-DOSE CUPS PO SCH (09:13)
[2017-04-15] MEDS: VANCOMYCIN 1,250 MG in DEXTROSE 5%-WATER - 250 ML IVPB SCH (09:14)
[2017-04-15] MEDS: POLYETHYLENE GLYCOL 3350 119 GM BTL PEG SCH ×2 (09:14→21:03)
[2017-04-15] MEDS: diazePAM 5 MG TABLET PEG PRN ×2 (09:26→21:09)
--- NOTE | 2017-04-15 13:06 | PN ---
Physical Exam: SUBJECTIVE: Patient seen and examined c/o abdominal pain that started tjis morning denies diarrhea no hemoptysis OBJECTIVE: Vital Signs Period Temp Pulse Resp BP Sys/Marroquin Pulse Ox Last 24 Hr 97.9 F-98.6 F 61-72 18-20 100-128/65-68 98-98 Physical Exam: General: NAD, dystonia, A&Ox3, temporal wasting, thin Lungs: CTA bilaterally Heart: RRR, S1S2 Abd: +PEG, soft, non-tender Ext: Warm, well-perfused. 2+ DP/PT bilaterally Neuro: Severely dysarthric Laboratory Results - last 24 hr 04/15/17 04/15/17 06:45 06:45 WBC 7.9 RBC 3.71 L Hgb 12.0 Hct 36.1 MCV 97.3 H MCH 32.3 MCHC 33.2 RDW 12.5 Plt Count 182 MPV 8.3 Neutrophils % 63.2 Lymphocytes % 24.6 Monocytes % 9.9 Eosinophils % 1.8 Basophils % 0.5 Sodium 140 Potassium 4.3 Chloride 100 Carbon Dioxide 34 H Anion Gap 6 L BUN 16 Creatinine 0.5 L Creat Clearance w eGFR > 60 Random Glucose 94 Calcium 8.8 Total Bilirubin 0.6 AST 35 D ALT 84 H Alkaline Phosphatase 77 Total Protein 5.6 L Albumin 3.1 L Active Medications Generic Name Dose Route Start Last Admin Trade Name Freq PRN Reason Stop Dose Admin Acetaminophen 325 mg 04/03/17 15:02 Tylenol - PO Q6H PRN PAIN OR FEVER Albuterol/Ipratropium 1 amp 04/03/17 18:00 04/15/17 09:24 Duoneb - NEB 1 amp Q4HWA [facility] Administration Diazepam 5 mg 04/09/17 10:43 04/15/17 09:26 Valium - PEG 5 mg Q8H PRN Administration WITHDRAWAL(CONT SUBST) Docusate Sodium 200 mg 04/03/17 15:02 04/07/17 14:52 Colace Liquid - PO 200 mg DAILY PRN Administration CONSTIPATION Docusate Sodium 200 mg 04/08/17 12:45 04/15/17 09:13 Colace Liquid - PO Not Given DAILY [facility] IV Flush 8 ml 04/12/17 09:23 Picc Line Flush IVPUSH PRN PRN Protocol Vancomycin HCl 1,250 mg/ 250 mls @ 166.667 mls/hr 04/08/17 16:00 04/15/17 09: 14 Dextrose IVPB 166.667 mls/hr DAILY [facility] Administration Protocol Meropenem 1 gm in 20 mls @ 100 mls/hr 04/08/17 18:00 04/15/17 11:00 Merrem (Restricted To Id) - IVPUSH 100 mls/hr Q8H-IV [facility] Administration Protocol Oxybutynin Chloride 10 mg 04/04/17 10:00 04/15/17 09:13 Ditropan - PO 10 mg DAILY [facility] Administration Polyethylene Glycol 17 gm 04/08/17 12:45 04/15/17 09:14 Miralax (For Daily Use) - PEG Not Given BID [facility] Prednisone 20 mg 04/12/17 10:00 04/15/17 09:13 Deltasone - PO 20 mg DAILY [facility] Administration Ranitidine HCl 150 mg 04/09/17 22:00 04/15/17 09:13 Zantac - PO 150 mg BID [facility] Administration Senna 8.8 mg 04/03/17 22:00 04/14/17 21:44 Senna Oral Solution - PO Not Given HS [facility] Simethicone 40 mg 04/11/17 11:00 Mylicon Liquid - GT QID PRN GAS Tramadol HCl 50 mg 04/06/17 18:00 04/15/17 05:56 Ultram - PO 50 mg Q6H PRN Administration ASSESSMENT/PLAN: 1. Lower inspiratory infection / bronchiectasis / COPD - bronchial washings positive for pseudomonas . Clinically improving. No hypoxia, no fever, hemoptysis resolved . Refusing placement of PICC line. - needs 7 more days of Vancomycin/ Meropenem - c/w prednisone and nebulizers 2. Dystonia/ chronic s/p c cord injury - stable 3. Abdominal pain - now resolved, feeds are tolerated , no vomiting , Last BM yesterday, exam non tender . Disposition - ID follow up appreciated , if not possible to switch to PO antibiotics , consider subacute care fascility where IV antibiotics can be managed through regular IV line since patient is refusing PICC Visit type - Emergency Visit Emergency Visit: Yes ED Registration Date: 03/28/17 Care time: The patient presented to the Emergency Department on the above date and was hospitalized for further evaluation of their emergent condition. - New Patient This patient is new to me today: Yes Date on this admission: 04/15/17 - Critical Care Critical Care patient: No - Discharge Referral Referred to [facility] No
--- NOTE | 2017-04-15 14:45 | PN ---
Progress Note (short form) - Note Progress Note: PULMONARY No further hemoptysis. Cough productive of yellow sputum. Last Vital Signs Temp Pulse Resp BP Pulse Ox 98.0 F 66 18 128/66 98 04/15/17 08:00 04/15/17 08:00 04/15/17 08:00 04/15/17 08:00 04/15/17 09:00 Gen: NAD at rest Heart: RRR Lung: decreased breath sounds at the bases Abd: soft, nontender Ext: no edema CBC, BMP 04/15/17 06:45 04/15/17 06:45 Active Medications Acetaminophen (Tylenol -) 325 mg PO Q6H PRN PRN Reason: PAIN OR FEVER Albuterol/Ipratropium (Duoneb -) 1 amp NEB Q4HWA [facility] Last Admin: 04/15/17 14:00 Dose: 1 amp Diazepam (Valium -) 5 mg PEG Q8H PRN PRN Reason: WITHDRAWAL(CONT SUBST) Last Admin: 04/15/17 09:26 Dose: 5 mg Docusate Sodium (Colace Liquid -) 200 mg PO DAILY PRN PRN Reason: CONSTIPATION Last Admin: 04/07/17 14:52 Dose: 200 mg Docusate Sodium (Colace Liquid -) 200 mg PO DAILY [facility] Last Admin: 04/15/17 09:13 Dose: Not Given IV Flush (Picc Line Flush) 8 ml IVPUSH PRN PRN PRN Reason: Protocol Vancomycin HCl 1,250 mg/ (Dextrose) 250 mls @ 166.667 mls/hr IVPB DAILY [facility] PRN Reason: Protocol Last Admin: 04/15/17 09:14 Dose: 166.667 mls/hr Meropenem (Merrem (Restricted To Id) -) 1 gm in 20 mls @ 100 mls/hr IVPUSH Q8H- IV [facility] PRN Reason: Protocol Last Admin: 04/15/17 11:00 Dose: 100 mls/hr Oxybutynin Chloride (Ditropan -) 10 mg PO DAILY [facility] Last Admin: 04/15/17 09:13 Dose: 10 mg Polyethylene Glycol (Miralax (For Daily Use) -) 17 gm PEG BID [facility] Last Admin: 04/15/17 09:14 Dose: Not Given Prednisone (Deltasone -) 20 mg PO DAILY [facility] Last Admin: 04/15/17 09:13 Dose: 20 mg Ranitidine HCl (Zantac -) 150 mg PO BID [facility] Last Admin: 04/15/17 09:13 Dose: 150 mg Senna (Senna Oral Solution -) 8.8 mg PO HS [facility] Last Admin: 04/14/17 21:44 Dose: Not Given Simethicone (Mylicon Liquid -) 40 mg GT QID PRN PRN Reason: GAS Tramadol HCl (Ultram -) 50 mg PO Q6H PRN Last Admin: 04/15/17 05:56 Dose: 50 mg A/P Hemoptysis resolved COPD Bronchiectasis Dystonia HTN Neurogenic Bladder Suprapubic Catheter GERD - prednisone taper - continue antibiotics - inhaled bronchodilators - O2 as needed - mechanical DVT prophylaxis - will need outpt f/u of lung nodules
--- NOTE | 2017-04-15 17:30 | PN ---
Progress Note, Physician Chief Complaint: Infectious Disease f/u: History of Present Illness: Pt is alert. No hemoptysis noted. Denies difficulty breathing. Receiving antibiotics. No diarrhea. Tmax 99F - Current Medication List Current Medications: Active Medications Acetaminophen (Tylenol -) 325 mg PO Q6H PRN PRN Reason: PAIN OR FEVER Albuterol/Ipratropium (Duoneb -) 1 amp NEB Q4HWA [facility] Last Admin: 04/15/17 14:00 Dose: 1 amp Diazepam (Valium -) 5 mg PEG Q8H PRN PRN Reason: WITHDRAWAL(CONT SUBST) Last Admin: 04/15/17 09:26 Dose: 5 mg Docusate Sodium (Colace Liquid -) 200 mg PO DAILY PRN PRN Reason: CONSTIPATION Last Admin: 04/07/17 14:52 Dose: 200 mg Docusate Sodium (Colace Liquid -) 200 mg PO DAILY [facility] Last Admin: 04/15/17 09:13 Dose: Not Given IV Flush (Picc Line Flush) 8 ml IVPUSH PRN PRN PRN Reason: Protocol Meropenem (Merrem (Restricted To Id) -) 1 gm in 20 mls @ 100 mls/hr IVPUSH Q8H- IV [facility] PRN Reason: Protocol Last Admin: 04/15/17 11:00 Dose: 100 mls/hr Meropenem 1 gm/ Dextrose 100 mls @ 100 mls/hr IVPB Q8H-IV [facility] PRN Reason: Protocol Oxybutynin Chloride (Ditropan -) 10 mg PO DAILY [facility] Last Admin: 04/15/17 09:13 Dose: 10 mg Polyethylene Glycol (Miralax (For Daily Use) -) 17 gm PEG BID [facility] Last Admin: 04/15/17 09:14 Dose: Not Given Prednisone (Deltasone -) 20 mg PO DAILY [facility] Last Admin: 04/15/17 09:13 Dose: 20 mg Ranitidine HCl (Zantac -) 150 mg PO BID [facility] Last Admin: 04/15/17 09:13 Dose: 150 mg Senna (Senna Oral Solution -) 8.8 mg PO HS [facility] Last Admin: 04/14/17 21:44 Dose: Not Given Simethicone (Mylicon Liquid -) 40 mg GT QID PRN PRN Reason: GAS Tramadol HCl (Ultram -) 50 mg PO Q6H PRN Last Admin: 04/15/17 05:56 Dose: 50 mg - Objective Vital Signs: Vital Signs Temperature 99.0 F 04/15/17 15:43 Pulse Rate 63 04/15/17 15:43 Respiratory Rate 18 04/15/17 15:43 Blood Pressure 121/67 04/15/17 15:43 O2 Sat by Pulse Oximetry (%) 98 04/15/17 09:00 Constitutional: Yes: No Distress, Calm Neck: Yes: Supple Cardiovascular: Yes: Regular Rate and Rhythm Respiratory: Yes: Cough Gastrointestinal: Yes: Normal Bowel Sounds, Soft, Other (gt in place) Genitourinary: Yes: WNL Extremities: Yes: WNL Neurological: Yes: Alert Labs: CBC, BMP 04/15/17 06:45 04/15/17 06:45 INR, PTT INR 1.02 (0.82-1.09) 03/29/17 07:00 Problem List - Problems (1) Hemoptysis Code(s): R04.2 - HEMOPTYSIS (2) Protein-calorie malnutrition, severe Code(s): E43 - UNSPECIFIED SEVERE PROTEIN-CALORIE MALNUTRITION (3) Asthma Code(s): J45.909 - UNSPECIFIED ASTHMA, UNCOMPLICATED (4) COPD (chronic obstructive pulmonary disease) Code(s): J44.9 - CHRONIC OBSTRUCTIVE PULMONARY DISEASE, UNSPECIFIED Qualifiers: COPD type: COPD with acute exacerbation Qualified Code(s): J44.1 - Chronic obstructive pulmonary disease with (acute) exacerbation (5) HTN (hypertension) Code(s): I10 - ESSENTIAL (PRIMARY) HYPERTENSION Qualifiers: (6) Percutaneous endoscopic gastrostomy status Code(s): Z93.1 - GASTROSTOMY STATUS (7) Pneumonia Code(s): J18.9 - PNEUMONIA, UNSPECIFIED ORGANISM Qualifiers: (8) Suprapubic catheter Code(s): Z93.59 - OTHER CYSTOSTOMY STATUS Assessment/Plan Hemoptysis resolving Afebrile - continue current antibiotics - check vancomycin level continue monitor renal function, vitals
[2017-04-15] MEDS: SENNOSIDES 8.8 MG/5 ML BULK BOTTLE PO SCH (21:04)
[2017-04-16] MEDS: MEROPENEM 1 GM PUSH 1 GM/20 ML DISP.SYRIN IVPUSH SCH ×4 (01:26→17:05)
[2017-04-16] MEDS: ALBUTEROL SO4 2.5/IPRATROPIUM 0.5 INH SOL 3 ML VIAL.NEB. NEB SCH ×5 (06:00→22:00)
[2017-04-16] MEDS ORDERED: PT OWN MED DRAWER 7, Y5N ONE ×3 (08:48→20:56)
[2017-04-16] MEDS: DOCUSATE NA 100 MG/10 ML UNIT-DOSE CUPS PO SCH (09:03)
[2017-04-16] MEDS: POLYETHYLENE GLYCOL 3350 119 GM BTL PEG SCH ×2 (09:03→21:12)
[2017-04-16] MEDS: OXYBUTYNIN CHLORIDE 5 MG TABLET PO SCH (09:04)
[2017-04-16] MEDS: diazePAM 5 MG TABLET PEG PRN ×2 (09:05→21:12)
[2017-04-16] MEDS: RANITIDINE HCL 150 MG TABLET (FP) PO SCH ×2 (09:05→21:12)
[2017-04-16] MEDS: predniSONE 20 MG TABLET (UD) PO SCH (09:05)
[2017-04-16] MEDS: traMADol HCL 50 MG TABLET PO PRN ×2 (10:55→17:04)
--- NOTE | 2017-04-16 11:49 | PN ---
Progress Note (short form) - Note Progress Note: PULMONARY Cough productive of yellow sputum. No hemoptysis. No fevers or chills. Last Vital Signs Temp Pulse Resp BP Pulse Ox 97.9 F 76 18 120/65 96 04/16/17 08:00 04/16/17 08:00 04/16/17 08:00 04/16/17 08:00 04/15/17 20:32 Gen: NAD at rest Heart: RRR Lung: decreased breath sounds at the bases Abd: soft, nontender Ext: no edema CBC, BMP 04/15/17 06:45 04/15/17 06:45 Active Medications Acetaminophen (Tylenol -) 325 mg PO Q6H PRN PRN Reason: PAIN OR FEVER Albuterol/Ipratropium (Duoneb -) 1 amp NEB Q4HWA [facility] Last Admin: 04/16/17 10:52 Dose: 1 amp Docusate Sodium (Colace Liquid -) 200 mg PO DAILY PRN PRN Reason: CONSTIPATION Last Admin: 04/07/17 14:52 Dose: 200 mg Docusate Sodium (Colace Liquid -) 200 mg PO DAILY [facility] Last Admin: 04/16/17 09:03 Dose: Not Given IV Flush (Picc Line Flush) 8 ml IVPUSH PRN PRN PRN Reason: Protocol Meropenem (Merrem (Restricted To Id) -) 1 gm in 20 mls @ 100 mls/hr IVPUSH Q8H- IV [facility] PRN Reason: Protocol Last Admin: 04/16/17 10:54 Dose: 100 mls/hr Oxybutynin Chloride (Ditropan -) 10 mg PO DAILY [facility] Last Admin: 04/16/17 09:04 Dose: 10 mg Polyethylene Glycol (Miralax (For Daily Use) -) 17 gm PEG BID [facility] Last Admin: 04/16/17 09:03 Dose: Not Given Prednisone (Deltasone -) 20 mg PO DAILY [facility] Last Admin: 04/16/17 09:05 Dose: 20 mg Ranitidine HCl (Zantac -) 150 mg PO BID [facility] Last Admin: 04/16/17 09:05 Dose: 150 mg Senna (Senna Oral Solution -) 8.8 mg PO HS [facility] Last Admin: 04/15/17 21:04 Dose: Not Given Simethicone (Mylicon Liquid -) 40 mg GT QID PRN PRN Reason: GAS Tramadol HCl (Ultram -) 50 mg PO Q6H PRN PRN Reason: PAIN Last Admin: 04/16/17 10:55 Dose: 50 mg A/P Hemoptysis resolved COPD Bronchiectasis Dystonia HTN Neurogenic Bladder Suprapubic Catheter GERD - prednisone taper - antibiotics per ID - inhaled bronchodilators - O2 as needed - mechanical DVT prophylaxis - will need outpt f/u of lung nodules
[2017-04-16] MEDS ORDERED: diazePAM 5 MG TABLET PEG PRN (13:56)
--- NOTE | 2017-04-16 15:26 | PN ---
Progress Note, Physician Chief Complaint: Mr Nash denies hemoptysis. He is not having cp, sob, n/v. - Current Medication List Current Medications: Active Medications Acetaminophen (Tylenol -) 325 mg PO Q6H PRN PRN Reason: PAIN OR FEVER Albuterol/Ipratropium (Duoneb -) 1 amp NEB Q4HWA [facility] Last Admin: 04/16/17 10:52 Dose: 1 amp Diazepam (Valium -) 5 mg PEG Q8H PRN PRN Reason: ANXIETY Docusate Sodium (Colace Liquid -) 200 mg PO DAILY PRN PRN Reason: CONSTIPATION Last Admin: 04/07/17 14:52 Dose: 200 mg Docusate Sodium (Colace Liquid -) 200 mg PO DAILY [facility] Last Admin: 04/16/17 09:03 Dose: Not Given IV Flush (Picc Line Flush) 8 ml IVPUSH PRN PRN PRN Reason: Protocol Meropenem (Merrem (Restricted To Id) -) 1 gm in 20 mls @ 100 mls/hr IVPUSH Q8H- IV [facility] PRN Reason: Protocol Last Admin: 04/16/17 10:54 Dose: 100 mls/hr Oxybutynin Chloride (Ditropan -) 10 mg PO DAILY [facility] Last Admin: 04/16/17 09:04 Dose: 10 mg Polyethylene Glycol (Miralax (For Daily Use) -) 17 gm PEG BID [facility] Last Admin: 04/16/17 09:03 Dose: Not Given Prednisone (Deltasone -) 20 mg PO DAILY [facility] Last Admin: 04/16/17 09:05 Dose: 20 mg Ranitidine HCl (Zantac -) 150 mg PO BID [facility] Last Admin: 04/16/17 09:05 Dose: 150 mg Senna (Senna Oral Solution -) 8.8 mg PO HS [facility] Last Admin: 04/15/17 21:04 Dose: Not Given Simethicone (Mylicon Liquid -) 40 mg GT QID PRN PRN Reason: GAS Tramadol HCl (Ultram -) 50 mg PO Q6H PRN PRN Reason: PAIN Last Admin: 04/16/17 10:55 Dose: 50 mg - Objective Vital Signs: Vital Signs Temperature 37.4 C 04/16/17 14:19 Pulse Rate 70 04/16/17 14:19 Respiratory Rate 18 04/16/17 14:19 Blood Pressure 105/65 04/16/17 14:19 O2 Sat by Pulse Oximetry (%) 98 04/16/17 09:00 Constitutional: Yes: No Distress, Calm, Thin Cardiovascular: Yes: Regular Rate and Rhythm. No: Gallop, Murmur, Rub Respiratory: Yes: Regular, CTA Bilaterally. No: Rales, Rhonchi, Wheezes Gastrointestinal: Yes: Normal Bowel Sounds, Soft. No: Distention, Tenderness Extremities: Yes: WNL Edema: No Labs: CBC, BMP 04/15/17 06:45 04/15/17 06:45 INR, PTT INR 1.02 (0.82-1.09) 03/29/17 07:00 Problem List - Problems (1) Hemoptysis Code(s): R04.2 - HEMOPTYSIS (2) COPD (chronic obstructive pulmonary disease) Code(s): J44.9 - CHRONIC OBSTRUCTIVE PULMONARY DISEASE, UNSPECIFIED Qualifiers: COPD type: COPD with acute exacerbation Qualified Code(s): J44.1 - Chronic obstructive pulmonary disease with (acute) exacerbation (3) Suprapubic catheter Code(s): Z93.59 - OTHER CYSTOSTOMY STATUS (4) Protein-calorie malnutrition, severe Code(s): E43 - UNSPECIFIED SEVERE PROTEIN-CALORIE MALNUTRITION Assessment/Plan (1) Pneumonia -appreciate ID assistance -continue merrem and vancomycin -needs 6 more days -patient declines PICC, can finish with peripherals as an outpatient once ready (2) COPD (chronic obstructive pulmonary disease) Assessment/Plan: -appreciate pulmonary assistance -contiue steroid taper Code(s): J44.9 - CHRONIC OBSTRUCTIVE PULMONARY DISEASE, UNSPECIFIED Qualifiers: COPD type: COPD with acute exacerbation Qualified Code(s): J44.1 - Chronic obstructive pulmonary disease with (acute) exacerbation (3) Suprapubic catheter Assessment/Plan: -changed by urology Code(s): Z93.59 - OTHER CYSTOSTOMY STATUS (4) Protein-calorie malnutrition, severe Assessment/Plan -continue at current rate, at goal Code(s): E43 - UNSPECIFIED SEVERE PROTEIN-CALORIE MALNUTRITION (5) Hemoptysis -resolved (6) Constipation -bisacodyl suppository Disposition -patient expressing desire to go to [place] -states he is interested in stopping tube feeds and possible hydration -he is aware of the results of stopping nutrition -will consult psychiatry to evaluate if patient has capacity for decisions or has depression precluding him from this decision -case being discussed with ethics who will follow up psych evaluation and recommendations
[2017-04-16] MEDS ORDERED: VANCOMYCIN 1 GRAM (PRE-DOCKED) 1,000 MG/250 ML BAG IVPB SCH (17:00)
--- NOTE | 2017-04-16 17:05 | PN ---
Progress Note, Physician History of Present Illness: Pt is alert. Denies shortness of breath. No hemotysis. Tmax 99.4F. no new complaints - Current Medication List Current Medications: Active Medications Acetaminophen (Tylenol -) 325 mg PO Q6H PRN PRN Reason: PAIN OR FEVER Albuterol/Ipratropium (Duoneb -) 1 amp NEB Q4HWA [facility] Last Admin: 04/16/17 10:52 Dose: 1 amp Diazepam (Valium -) 10 mg PEG Q8H PRN PRN Reason: ANXIETY Docusate Sodium (Colace Liquid -) 200 mg PO DAILY PRN PRN Reason: CONSTIPATION Last Admin: 04/07/17 14:52 Dose: 200 mg Docusate Sodium (Colace Liquid -) 200 mg PO DAILY [facility] Last Admin: 04/16/17 09:03 Dose: Not Given IV Flush (Picc Line Flush) 8 ml IVPUSH PRN PRN PRN Reason: Protocol Meropenem (Merrem (Restricted To Id) -) 1 gm in 20 mls @ 100 mls/hr IVPUSH Q8H- IV [facility] PRN Reason: Protocol Last Admin: 04/16/17 10:54 Dose: 100 mls/hr Vancomycin HCl 1,250 mg/ (Dextrose) 250 mls @ 166.667 mls/hr IVPB DAILY@1700 [facility] PRN Reason: Protocol Oxybutynin Chloride (Ditropan -) 10 mg PO DAILY [facility] Last Admin: 04/16/17 09:04 Dose: 10 mg Polyethylene Glycol (Miralax (For Daily Use) -) 17 gm PEG BID [facility] Last Admin: 04/16/17 09:03 Dose: Not Given Prednisone (Deltasone -) 20 mg PO DAILY [facility] Last Admin: 04/16/17 09:05 Dose: 20 mg Ranitidine HCl (Zantac -) 150 mg PO BID [facility] Last Admin: 04/16/17 09:05 Dose: 150 mg Senna (Senna Oral Solution -) 8.8 mg PO HS [facility] Last Admin: 04/15/17 21:04 Dose: Not Given Simethicone (Mylicon Liquid -) 40 mg GT QID PRN PRN Reason: GAS Tramadol HCl (Ultram -) 50 mg PO Q6H PRN PRN Reason: PAIN Last Admin: 04/16/17 10:55 Dose: 50 mg - Objective Vital Signs: Vital Signs Temperature 99.4 F 04/16/17 14:19 Pulse Rate 70 04/16/17 14:19 Respiratory Rate 18 04/16/17 14:19 Blood Pressure 105/65 04/16/17 14:19 O2 Sat by Pulse Oximetry (%) 98 04/16/17 09:00 Constitutional: Yes: No Distress Neck: Yes: Supple Cardiovascular: Yes: Regular Rate and Rhythm Respiratory: Yes: Other (improved air entry b/l) Gastrointestinal: Yes: Normal Bowel Sounds, Soft Genitourinary: Yes: WNL Extremities: Yes: WNL Integumentary: Yes: WNL Neurological: Yes: Alert Labs: CBC, BMP 04/15/17 06:45 04/15/17 06:45 INR, PTT INR 1.02 (0.82-1.09) 03/29/17 07:00 Problem List - Problems (1) Hemoptysis Code(s): R04.2 - HEMOPTYSIS (2) Protein-calorie malnutrition, severe Code(s): E43 - UNSPECIFIED SEVERE PROTEIN-CALORIE MALNUTRITION (3) Asthma Code(s): J45.909 - UNSPECIFIED ASTHMA, UNCOMPLICATED (4) COPD (chronic obstructive pulmonary disease) Code(s): J44.9 - CHRONIC OBSTRUCTIVE PULMONARY DISEASE, UNSPECIFIED Qualifiers: COPD type: COPD with acute exacerbation Qualified Code(s): J44.1 - Chronic obstructive pulmonary disease with (acute) exacerbation (5) HTN (hypertension) Code(s): I10 - ESSENTIAL (PRIMARY) HYPERTENSION Qualifiers: (6) Percutaneous endoscopic gastrostomy status Code(s): Z93.1 - GASTROSTOMY STATUS (7) Pneumonia Code(s): J18.9 - PNEUMONIA, UNSPECIFIED ORGANISM Qualifiers: (8) Suprapubic catheter Code(s): Z93.59 - OTHER CYSTOSTOMY STATUS Assessment/Plan MRSA/Pseudomonal PNA hemoptysis resolved - continue Meropenem/Vancomycin IV - vancomycin dose adjusted - monitor temps, renal function pt currently stable
--- NOTE | 2017-04-16 18:33 | CON.PSY ---
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 History of Muscular Dystrophy, Spinal fusion a,d other vmedical mconditions. Patient being fed by Genity tube. patient apparantly wants feeding stopped and wants to go to [facility]. Patient seen for an evaluation of depresion and capacity to make informed decisions about his medical care. Patient denies any depression or suicidal thoughts. Feels there is not much any oneoneccan dop for him at thi9s stage and wants to go to [facility]. - Previous Psychiatric Treatment Outpatient: None Inpatient: None - Previous Substance Abuse Treatment Outpatient: None Inpatient: None - Current Medications Current Medications: Active Medications Acetaminophen (Tylenol -) 325 mg PO Q6H PRN PRN Reason: PAIN OR FEVER Albuterol/Ipratropium (Duoneb -) 1 amp NEB Q4HWA [facility] Last Admin: 04/16/17 18:03 Dose: 1 amp Diazepam (Valium -) 10 mg PEG Q8H PRN PRN Reason: ANXIETY Docusate Sodium (Colace Liquid -) 200 mg PO DAILY PRN PRN Reason: CONSTIPATION Last Admin: 04/07/17 14:52 Dose: 200 mg Docusate Sodium (Colace Liquid -) 200 mg PO DAILY [facility] Last Admin: 04/16/17 09:03 Dose: Not Given IV Flush (Picc Line Flush) 8 ml IVPUSH PRN PRN PRN Reason: Protocol Meropenem (Merrem (Restricted To Id) -) 1 gm in 20 mls @ 100 mls/hr IVPUSH Q8H- IV [facility] PRN Reason: Protocol Last Admin: 04/16/17 17:05 Dose: 100 mls/hr Vancomycin HCl (Vancomycin (Pre-Docked)) 1,000 mg in 250 mls @ 166.667 mls/hr IVPB DAILY@1700 [facility] PRN Reason: Protocol Oxybutynin Chloride (Ditropan -) 10 mg PO DAILY [facility] Last Admin: 04/16/17 09:04 Dose: 10 mg Polyethylene Glycol (Miralax (For Daily Use) -) 17 gm PEG BID [facility] Last Admin: 04/16/17 09:03 Dose: Not Given Prednisone (Deltasone -) 20 mg PO DAILY [facility] Last Admin: 04/16/17 09:05 Dose: 20 mg Ranitidine HCl (Zantac -) 150 mg PO BID [facility] Last Admin: 04/16/17 09:05 Dose: 150 mg Senna (Senna Oral Solution -) 8.8 mg PO HS [facility] Last Admin: 04/15/17 21:04 Dose: Not Given Simethicone (Mylicon Liquid -) 40 mg GT QID PRN PRN Reason: GAS Tramadol HCl (Ultram -) 50 mg PO Q6H PRN PRN Reason: PAIN Last Admin: 04/16/17 17:04 Dose: 50 mg - Allergies Allergies: Allergies Allergy/AdvReac Type Severity Reaction Status Date / Time iodine Allergy Severe Low Blood Verified 03/28/17 22:54 Pressure kiwi Allergy Intermediate Swelling Verified 03/28/17 22:54 latex Allergy Unknown Swelling Verified 03/28/17 22:54 shellfish derived Allergy Unknown Verified 03/28/17 22:54 ampicillin sodium Allergy Rash Verified 03/28/17 22:54 [From Unasyn] Fish Containing Products Allergy Difficulty Verified 03/28/17 22:54 Breathing Penicillins Allergy Rash Verified 03/28/17 22:54 sulbactam sodium Allergy Rash Verified 03/28/17 22:54 [From Unasyn] Sulfa (Sulfonamide Allergy Hives Verified 03/28/17 22:54 Antibiotics) [Sulfa(Sulfonamide Antibiotics)] - Current Living Status Usual Living Arrangement: Alone - Current Mental Status Evaluation Appearance: Disheveled Attitude: Cooperative - Affect Affect: Constrictive Appropriateness: Appropriate to Content - Mood Mood: Anxious - Speech/Language Expressive: Coherent Receptive: Age Appropriate Comprehension of Spoken Words - Psychomotor Activity Psychomotor Activity: Slowed - Thought Process Thought Process: Intact - Thought Content Hallucinations: Absent Delusions: Absent - Self Perception Self Perception: No Impairment - Cognition Attention: Alert Orientation: Time Memory, Immediate Recall: Intact Memory, Short Term: 3/3 Memory, Remote with Promptin/3 - Concentration Serial Sevens Intact: Yes Simple Calculations Intact: Yes - Abstraction Proverb Interpretation: Intact Judgement: Intact - Insight Insight: Intact - Impulse Control Impulse Control: Good Control - Suicidal Ideation Suicidal Ideation: No - Homicidal Ideation Homicidal Ideation: No Assessment/Plan 1) No evidence of any acute Depression or self damaging behaviour now or in the past. 2) Patient has the functional capacity to make informed decisions at this time about his on going medical care. 3) agree with Ethics Consultation.
[2017-04-16] MEDS: VANCOMYCIN 1,000 MG in DEXTROSE 5%-WATER - 250 ML IVPB SCH (21:13)
[2017-04-16] MEDS: SENNOSIDES 8.8 MG/5 ML BULK BOTTLE PO SCH (21:14)
[2017-04-17] MEDS ORDERED: PT OWN MED DRAWER 7, Y5N ONE ×3 (02:25→21:20)
[2017-04-17] MEDS: MEROPENEM 1 GM PUSH 1 GM/20 ML DISP.SYRIN IVPUSH SCH ×3 (02:34→18:22)
[2017-04-17] MEDS: traMADol HCL 50 MG TABLET PO PRN ×2 (02:46→13:14)
[2017-04-17] MEDS: ALBUTEROL SO4 2.5/IPRATROPIUM 0.5 INH SOL 3 ML VIAL.NEB. NEB SCH ×5 (06:35→22:09)
[2017-04-17] MEDS: RANITIDINE HCL 150 MG TABLET (FP) PO SCH ×2 (10:38→21:29)
[2017-04-17] MEDS: diazePAM 5 MG TABLET PEG PRN ×2 (10:38→21:29)
[2017-04-17] MEDS: OXYBUTYNIN CHLORIDE 5 MG TABLET PO SCH (10:40)
[2017-04-17] MEDS: predniSONE 20 MG TABLET (UD) PO SCH (10:40)
[2017-04-17] MEDS: POLYETHYLENE GLYCOL 3350 119 GM BTL PEG SCH ×2 (10:41→21:35)
[2017-04-17] MEDS: DOCUSATE NA 100 MG/10 ML UNIT-DOSE CUPS PO SCH (10:41)
--- NOTE | 2017-04-17 11:14 | PN ---
Progress Note, Physician Chief Complaint: Mr Nash denies cp, sob, n/v. - Current Medication List Current Medications: Active Medications Acetaminophen (Tylenol -) 325 mg PO Q6H PRN PRN Reason: PAIN OR FEVER Albuterol/Ipratropium (Duoneb -) 1 amp NEB Q4HWA [facility] Last Admin: 04/17/17 10:11 Dose: 1 amp Diazepam (Valium -) 10 mg PEG Q8H PRN PRN Reason: ANXIETY Last Admin: 04/17/17 10:38 Dose: 10 mg Docusate Sodium (Colace Liquid -) 200 mg PO DAILY PRN PRN Reason: CONSTIPATION Last Admin: 04/07/17 14:52 Dose: 200 mg Docusate Sodium (Colace Liquid -) 200 mg PO DAILY [facility] Last Admin: 04/17/17 10:41 Dose: Not Given IV Flush (Picc Line Flush) 8 ml IVPUSH PRN PRN PRN Reason: Protocol Meropenem (Merrem (Restricted To Id) -) 1 gm in 20 mls @ 100 mls/hr IVPUSH Q8H- IV [facility] PRN Reason: Protocol Last Admin: 04/17/17 10:40 Dose: 100 mls/hr Vancomycin HCl 1,000 mg/ (Dextrose) 250 mls @ 250 mls/hr IVPB DAILY@1900 [facility] PRN Reason: Protocol Last Admin: 04/16/17 21:13 Dose: 250 mls/hr Oxybutynin Chloride (Ditropan -) 10 mg PO DAILY [facility] Last Admin: 04/17/17 10:40 Dose: 10 mg Polyethylene Glycol (Miralax (For Daily Use) -) 17 gm PEG BID [facility] Last Admin: 04/17/17 10:41 Dose: Not Given Prednisone (Deltasone -) 20 mg PO DAILY [facility] Last Admin: 04/17/17 10:40 Dose: 20 mg Ranitidine HCl (Zantac -) 150 mg PO BID [facility] Last Admin: 04/17/17 10:38 Dose: 150 mg Senna (Senna Oral Solution -) 8.8 mg PO HS [facility] Last Admin: 04/16/17 21:14 Dose: 8.8 mg Simethicone (Mylicon Liquid -) 40 mg GT QID PRN PRN Reason: GAS Tramadol HCl (Ultram -) 50 mg PO Q6H PRN PRN Reason: PAIN Last Admin: 04/17/17 02:46 Dose: 50 mg - Objective Vital Signs: Vital Signs Temperature 36.7 C 04/17/17 10:36 Pulse Rate 78 04/17/17 10:36 Respiratory Rate 18 04/17/17 10:36 Blood Pressure 120/66 04/17/17 10:36 O2 Sat by Pulse Oximetry (%) 98 04/16/17 21:00 Constitutional: Yes: No Distress, Calm, Thin Cardiovascular: Yes: Regular Rate and Rhythm. No: Gallop, Murmur, Rub Respiratory: Yes: Regular, CTA Bilaterally. No: Rales, Rhonchi, Wheezes Gastrointestinal: Yes: Normal Bowel Sounds, Soft. No: Distention, Tenderness Extremities: Yes: WNL Edema: No Labs: CBC, BMP 04/15/17 06:45 04/15/17 06:45 INR, PTT INR 1.02 (0.82-1.09) 03/29/17 07:00 Problem List - Problems (1) Hemoptysis Code(s): R04.2 - HEMOPTYSIS (2) COPD (chronic obstructive pulmonary disease) Code(s): J44.9 - CHRONIC OBSTRUCTIVE PULMONARY DISEASE, UNSPECIFIED Qualifiers: COPD type: COPD with acute exacerbation Qualified Code(s): J44.1 - Chronic obstructive pulmonary disease with (acute) exacerbation (3) Suprapubic catheter Code(s): Z93.59 - OTHER CYSTOSTOMY STATUS (4) Protein-calorie malnutrition, severe Code(s): E43 - UNSPECIFIED SEVERE PROTEIN-CALORIE MALNUTRITION Assessment/Plan (1) Pneumonia -appreciate ID assistance -continue merrem and vancomycin -needs 5 more days -patient declines PICC, can finish with peripherals as an outpatient once ready (2) COPD (chronic obstructive pulmonary disease) Assessment/Plan: -appreciate pulmonary assistance -contiue steroid taper Code(s): J44.9 - CHRONIC OBSTRUCTIVE PULMONARY DISEASE, UNSPECIFIED Qualifiers: COPD type: COPD with acute exacerbation Qualified Code(s): J44.1 - Chronic obstructive pulmonary disease with (acute) exacerbation (3) Suprapubic catheter Assessment/Plan: -changed by urology Code(s): Z93.59 - OTHER CYSTOSTOMY STATUS (4) Protein-calorie malnutrition, severe Assessment/Plan -continue at current rate, at goal Code(s): E43 - UNSPECIFIED SEVERE PROTEIN-CALORIE MALNUTRITION (5) Hemoptysis -resolved (6) Constipation -bisacodyl suppository Disposition -appreciate psychiatry assistance -has capacity to make own decisions -ethics consult placed -possible stopping tube feeds and antibiotics with transfer to [place] pending ethics recommendations
--- NOTE | 2017-04-17 16:58 | PN ---
Progress Note, Physician Chief Complaint: Infectious Disease f/u: History of Present Illness: Pt feels well today. Denies shortness of breath or cough. Is afebrile. - Current Medication List Current Medications: Active Medications Acetaminophen (Tylenol -) 325 mg PO Q6H PRN PRN Reason: PAIN OR FEVER Albuterol/Ipratropium (Duoneb -) 1 amp NEB Q4HWA [facility] Last Admin: 04/17/17 14:35 Dose: Not Given Diazepam (Valium -) 10 mg PEG Q8H PRN PRN Reason: ANXIETY Last Admin: 04/17/17 10:38 Dose: 10 mg Docusate Sodium (Colace Liquid -) 200 mg PO DAILY PRN PRN Reason: CONSTIPATION Last Admin: 04/07/17 14:52 Dose: 200 mg Docusate Sodium (Colace Liquid -) 200 mg PO DAILY [facility] Last Admin: 04/17/17 10:41 Dose: Not Given IV Flush (Picc Line Flush) 8 ml IVPUSH PRN PRN PRN Reason: Protocol Meropenem (Merrem (Restricted To Id) -) 1 gm in 20 mls @ 100 mls/hr IVPUSH Q8H- IV [facility] PRN Reason: Protocol Last Admin: 04/17/17 10:40 Dose: 100 mls/hr Vancomycin HCl 1,000 mg/ (Dextrose) 250 mls @ 250 mls/hr IVPB DAILY@1900 [facility] PRN Reason: Protocol Last Admin: 04/16/17 21:13 Dose: 250 mls/hr Oxybutynin Chloride (Ditropan -) 10 mg PO DAILY [facility] Last Admin: 04/17/17 10:40 Dose: 10 mg Polyethylene Glycol (Miralax (For Daily Use) -) 17 gm PEG BID [facility] Last Admin: 04/17/17 10:41 Dose: Not Given Prednisone (Deltasone -) 20 mg PO DAILY [facility] Last Admin: 04/17/17 10:40 Dose: 20 mg Ranitidine HCl (Zantac -) 150 mg PO BID [facility] Last Admin: 04/17/17 10:38 Dose: 150 mg Senna (Senna Oral Solution -) 8.8 mg PO HS [facility] Last Admin: 04/16/17 21:14 Dose: 8.8 mg Simethicone (Mylicon Liquid -) 40 mg GT QID PRN PRN Reason: GAS Tramadol HCl (Ultram -) 50 mg PO Q6H PRN PRN Reason: PAIN Last Admin: 04/17/17 13:14 Dose: 50 mg - Objective Vital Signs: Vital Signs Temperature 98.2 F 04/17/17 14:00 Pulse Rate 69 04/17/17 14:00 Respiratory Rate 20 04/17/17 14:00 Blood Pressure 132/75 04/17/17 14:00 O2 Sat by Pulse Oximetry (%) 98 04/17/17 09:00 Constitutional: Yes: No Distress, Calm Neck: Yes: Supple Cardiovascular: Yes: Regular Rate and Rhythm Respiratory: Yes: CTA Bilaterally Gastrointestinal: Yes: Normal Bowel Sounds, Soft Extremities: Yes: WNL Edema: No Integumentary: Yes: WNL Neurological: Yes: Alert, Oriented Labs: CBC, BMP 04/15/17 06:45 04/15/17 06:45 INR, PTT INR 1.02 (0.82-1.09) 03/29/17 07:00 Problem List - Problems (1) Hemoptysis Code(s): R04.2 - HEMOPTYSIS (2) Protein-calorie malnutrition, severe Code(s): E43 - UNSPECIFIED SEVERE PROTEIN-CALORIE MALNUTRITION (3) Asthma Code(s): J45.909 - UNSPECIFIED ASTHMA, UNCOMPLICATED (4) COPD (chronic obstructive pulmonary disease) Code(s): J44.9 - CHRONIC OBSTRUCTIVE PULMONARY DISEASE, UNSPECIFIED Qualifiers: COPD type: COPD with acute exacerbation Qualified Code(s): J44.1 - Chronic obstructive pulmonary disease with (acute) exacerbation (5) HTN (hypertension) Code(s): I10 - ESSENTIAL (PRIMARY) HYPERTENSION Qualifiers: (6) Percutaneous endoscopic gastrostomy status Code(s): Z93.1 - GASTROSTOMY STATUS (7) Pneumonia Code(s): J18.9 - PNEUMONIA, UNSPECIFIED ORGANISM Qualifiers: (8) Suprapubic catheter Code(s): Z93.59 - OTHER CYSTOSTOMY STATUS Assessment/Plan MRSA/Pseudomonas PNA COPD - hemoptysis resolved, no respiratory distress - continue antibiotics for now - pt appears stable
[2017-04-17] MEDS: VANCOMYCIN 1,000 MG in DEXTROSE 5%-WATER - 250 ML IVPB SCH (18:22)
[2017-04-17] MEDS: SENNOSIDES 8.8 MG/5 ML BULK BOTTLE PO SCH (21:35)
[2017-04-18] MEDS ORDERED: PT OWN MED DRAWER 7, Y5N ONE ×4 (01:57→21:23)
[2017-04-18] MEDS: MEROPENEM 1 GM PUSH 1 GM/20 ML DISP.SYRIN IVPUSH SCH ×3 (02:21→18:20)
[2017-04-18] MEDS: traMADol HCL 50 MG TABLET PO PRN ×3 (02:29→18:02)
[2017-04-18] MEDS: ALBUTEROL SO4 2.5/IPRATROPIUM 0.5 INH SOL 3 ML VIAL.NEB. NEB SCH ×5 (06:28→23:01)
--- NOTE | 2017-04-18 09:06 | PN ---
Progress Note (short form) - Note Progress Note: Ethics: I sat with the patient this AM and had a detailed discussion about his decisions for care especially the question of discontinuing feeding thru his PEG tube. He was seen by Dr. Oconnor and deemed capable of medical decision making and not depressed. He told me this AM that he has reconsidered his decision on stopping the feedings and would not stop the feedings unless the Hemoptysis recurs. I explained that this would mean a transfer back to the [facility] and not [facility] and he understood this fact and agreed. I also explained that the hemoptysis could recur soon and that he has the ethical right to refuse feeding if his decisions change in the future. I do agree that if he changes his decision again to refuse feedings an ethics meeting with the patient and his family and the treating MD's present would be of benefit.
[2017-04-18] MEDS: predniSONE 20 MG TABLET (UD) PO SCH (09:47)
[2017-04-18] MEDS: POLYETHYLENE GLYCOL 3350 119 GM BTL PEG SCH ×2 (09:47→22:08)
[2017-04-18] MEDS: diazePAM 5 MG TABLET PEG PRN ×2 (09:47→21:30)
[2017-04-18] MEDS: RANITIDINE HCL 150 MG TABLET (FP) PO SCH ×2 (09:47→21:30)
[2017-04-18] MEDS: DOCUSATE NA 100 MG/10 ML UNIT-DOSE CUPS PO SCH (09:48)
[2017-04-18] MEDS: OXYBUTYNIN CHLORIDE 5 MG TABLET PO SCH (09:48)
--- NOTE | 2017-04-18 12:50 | PN ---
Progress Note (short form) - Note Progress Note: PULMONARY Cough clearing. No hemoptysis. No fevers or chills. Last Vital Signs Temp Pulse Resp BP Pulse Ox 98 F 70 18 127/89 98 04/18/17 09:00 04/18/17 09:00 04/18/17 09:00 04/18/17 09:00 04/17/17 21:00 Gen: NAD at rest Heart: RRR Lung: decreased breath sounds at the bases Abd: soft, nontender Ext: no edema CBC, BMP 04/15/17 06:45 04/15/17 06:45 Active Medications Acetaminophen (Tylenol -) 325 mg PO Q6H PRN PRN Reason: PAIN OR FEVER Albuterol/Ipratropium (Duoneb -) 1 amp NEB Q4HWA [facility] Last Admin: 04/18/17 09:10 Dose: 1 amp Diazepam (Valium -) 10 mg PEG Q8H PRN PRN Reason: ANXIETY Last Admin: 04/18/17 09:47 Dose: 10 mg Docusate Sodium (Colace Liquid -) 200 mg PO DAILY PRN PRN Reason: CONSTIPATION Last Admin: 04/07/17 14:52 Dose: 200 mg Docusate Sodium (Colace Liquid -) 200 mg PO DAILY [facility] Last Admin: 04/18/17 09:48 Dose: Not Given IV Flush (Picc Line Flush) 8 ml IVPUSH PRN PRN PRN Reason: Protocol Meropenem (Merrem (Restricted To Id) -) 1 gm in 20 mls @ 100 mls/hr IVPUSH Q8H- IV [facility] PRN Reason: Protocol Last Admin: 04/18/17 11:49 Dose: 100 mls/hr Vancomycin HCl 1,000 mg/ (Dextrose) 250 mls @ 250 mls/hr IVPB DAILY@1900 [facility] PRN Reason: Protocol Last Admin: 04/17/17 18:22 Dose: 250 mls/hr Oxybutynin Chloride (Ditropan -) 10 mg PO DAILY [facility] Last Admin: 04/18/17 09:48 Dose: 10 mg Polyethylene Glycol (Miralax (For Daily Use) -) 17 gm PEG BID [facility] Last Admin: 04/18/17 09:47 Dose: Not Given Prednisone (Deltasone -) 20 mg PO DAILY [facility] Last Admin: 04/18/17 09:47 Dose: 20 mg Ranitidine HCl (Zantac -) 150 mg PO BID [facility] Last Admin: 04/18/17 09:47 Dose: 150 mg Senna (Senna Oral Solution -) 8.8 mg PO HS [facility] Last Admin: 04/17/17 21:35 Dose: Not Given Simethicone (Mylicon Liquid -) 40 mg GT QID PRN PRN Reason: GAS Tramadol HCl (Ultram -) 50 mg PO Q6H PRN PRN Reason: PAIN Last Admin: 04/18/17 11:50 Dose: 50 mg A/P Hemoptysis resolved COPD Bronchiectasis Dystonia HTN Neurogenic Bladder Suprapubic Catheter GERD - prednisone taper - antibiotics per ID - inhaled bronchodilators - O2 as needed - mechanical DVT prophylaxis - will need outpt f/u of lung nodules - d/c planning
--- NOTE | 2017-04-18 13:42 | PN ---
Progress Note, Physician Chief Complaint: Infectious Disease f/u: History of Present Illness: Pt is alert, afebrile. No hemoptysis or cough noted. Denies diarrhea or abd pain. No specific complaints. - Current Medication List Current Medications: Active Medications Acetaminophen (Tylenol -) 325 mg PO Q6H PRN PRN Reason: PAIN OR FEVER Albuterol/Ipratropium (Duoneb -) 1 amp NEB Q4HWA [facility] Last Admin: 04/18/17 09:10 Dose: 1 amp Diazepam (Valium -) 10 mg PEG Q8H PRN PRN Reason: ANXIETY Last Admin: 04/18/17 09:47 Dose: 10 mg Docusate Sodium (Colace Liquid -) 200 mg PO DAILY PRN PRN Reason: CONSTIPATION Last Admin: 04/07/17 14:52 Dose: 200 mg Docusate Sodium (Colace Liquid -) 200 mg PO DAILY [facility] Last Admin: 04/18/17 09:48 Dose: Not Given IV Flush (Picc Line Flush) 8 ml IVPUSH PRN PRN PRN Reason: Protocol Meropenem (Merrem (Restricted To Id) -) 1 gm in 20 mls @ 100 mls/hr IVPUSH Q8H- IV [facility] PRN Reason: Protocol Last Admin: 04/18/17 11:49 Dose: 100 mls/hr Vancomycin HCl 1,000 mg/ (Dextrose) 250 mls @ 250 mls/hr IVPB DAILY@1900 [facility] PRN Reason: Protocol Last Admin: 04/17/17 18:22 Dose: 250 mls/hr Oxybutynin Chloride (Ditropan -) 10 mg PO DAILY [facility] Last Admin: 04/18/17 09:48 Dose: 10 mg Polyethylene Glycol (Miralax (For Daily Use) -) 17 gm PEG BID [facility] Last Admin: 04/18/17 09:47 Dose: Not Given Prednisone (Deltasone -) 20 mg PO DAILY [facility] Last Admin: 04/18/17 09:47 Dose: 20 mg Ranitidine HCl (Zantac -) 150 mg PO BID [facility] Last Admin: 04/18/17 09:47 Dose: 150 mg Senna (Senna Oral Solution -) 8.8 mg PO HS [facility] Last Admin: 04/17/17 21:35 Dose: Not Given Simethicone (Mylicon Liquid -) 40 mg GT QID PRN PRN Reason: GAS Tramadol HCl (Ultram -) 50 mg PO Q6H PRN PRN Reason: PAIN Last Admin: 04/18/17 11:50 Dose: 50 mg - Objective Vital Signs: Vital Signs Temperature 98 F 04/18/17 09:00 Pulse Rate 70 04/18/17 09:00 Respiratory Rate 18 04/18/17 09:00 Blood Pressure 127/89 04/18/17 09:00 O2 Sat by Pulse Oximetry (%) 98 04/17/17 21:00 Constitutional: Yes: No Distress, Calm Neck: Yes: Supple Cardiovascular: Yes: Regular Rate and Rhythm Respiratory: Yes: CTA Bilaterally Gastrointestinal: Yes: Normal Bowel Sounds, Soft, Other (peg) Genitourinary: Yes: WNL Integumentary: Yes: WNL Neurological: Yes: Alert, Oriented Labs: CBC, BMP 04/15/17 06:45 04/15/17 06:45 INR, PTT INR 1.02 (0.82-1.09) 03/29/17 07:00 Problem List - Problems (1) Hemoptysis Code(s): R04.2 - HEMOPTYSIS (2) Protein-calorie malnutrition, severe Code(s): E43 - UNSPECIFIED SEVERE PROTEIN-CALORIE MALNUTRITION (3) Asthma Code(s): J45.909 - UNSPECIFIED ASTHMA, UNCOMPLICATED (4) COPD (chronic obstructive pulmonary disease) Code(s): J44.9 - CHRONIC OBSTRUCTIVE PULMONARY DISEASE, UNSPECIFIED Qualifiers: COPD type: COPD with acute exacerbation Qualified Code(s): J44.1 - Chronic obstructive pulmonary disease with (acute) exacerbation (5) HTN (hypertension) Code(s): I10 - ESSENTIAL (PRIMARY) HYPERTENSION Qualifiers: (6) Percutaneous endoscopic gastrostomy status Code(s): Z93.1 - GASTROSTOMY STATUS (7) Pneumonia Code(s): J18.9 - PNEUMONIA, UNSPECIFIED ORGANISM Qualifiers: (8) Suprapubic catheter Code(s): Z93.59 - OTHER CYSTOSTOMY STATUS Assessment/Plan 61 yr old male with COPD, GERD, HTN, neurogenic bladder with SPC, peg tube admitted for hemoptysis being treated for Pseudomonas/MRSA pneumonia clinically improved. - suggest cont current antibiotics for 4 more days - for d/c back to [place] Pt stable at this time
--- NOTE | 2017-04-18 16:15 | PN ---
Progress Note, Physician Chief Complaint: Mr Nash denies cp, sob, n/v. - Current Medication List Current Medications: Active Medications Acetaminophen (Tylenol -) 325 mg PO Q6H PRN PRN Reason: PAIN OR FEVER Albuterol/Ipratropium (Duoneb -) 1 amp NEB Q4HWA [facility] Last Admin: 04/18/17 13:05 Dose: Not Given Diazepam (Valium -) 10 mg PEG Q8H PRN PRN Reason: ANXIETY Last Admin: 04/18/17 09:47 Dose: 10 mg Docusate Sodium (Colace Liquid -) 200 mg PO DAILY PRN PRN Reason: CONSTIPATION Last Admin: 04/07/17 14:52 Dose: 200 mg Docusate Sodium (Colace Liquid -) 200 mg PO DAILY [facility] Last Admin: 04/18/17 09:48 Dose: Not Given IV Flush (Picc Line Flush) 8 ml IVPUSH PRN PRN PRN Reason: Protocol Meropenem (Merrem (Restricted To Id) -) 1 gm in 20 mls @ 100 mls/hr IVPUSH Q8H- IV [facility] PRN Reason: Protocol Last Admin: 04/18/17 11:49 Dose: 100 mls/hr Vancomycin HCl 1,000 mg/ (Dextrose) 250 mls @ 250 mls/hr IVPB DAILY@1900 [facility] PRN Reason: Protocol Last Admin: 04/17/17 18:22 Dose: 250 mls/hr Oxybutynin Chloride (Ditropan -) 10 mg PO DAILY [facility] Last Admin: 04/18/17 09:48 Dose: 10 mg Polyethylene Glycol (Miralax (For Daily Use) -) 17 gm PEG BID [facility] Last Admin: 04/18/17 09:47 Dose: Not Given Prednisone (Deltasone -) 20 mg PO DAILY [facility] Last Admin: 04/18/17 09:47 Dose: 20 mg Ranitidine HCl (Zantac -) 150 mg PO BID [facility] Last Admin: 04/18/17 09:47 Dose: 150 mg Senna (Senna Oral Solution -) 8.8 mg PO HS [facility] Last Admin: 04/17/17 21:35 Dose: Not Given Simethicone (Mylicon Liquid -) 40 mg GT QID PRN PRN Reason: GAS Tramadol HCl (Ultram -) 50 mg PO Q6H PRN PRN Reason: PAIN Last Admin: 04/18/17 11:50 Dose: 50 mg - Objective Vital Signs: Vital Signs Temperature 36.6 C 04/18/17 13:54 Pulse Rate 63 04/18/17 13:54 Respiratory Rate 18 04/18/17 13:54 Blood Pressure 98/63 04/18/17 13:54 O2 Sat by Pulse Oximetry (%) 98 04/17/17 21:00 Constitutional: Yes: Well Nourished, No Distress, Calm Cardiovascular: Yes: Regular Rate and Rhythm. No: Gallop, Murmur, Rub Respiratory: Yes: Regular, CTA Bilaterally. No: Rales, Rhonchi, Wheezes Gastrointestinal: Yes: Normal Bowel Sounds, Soft. No: Distention, Tenderness Extremities: Yes: WNL Edema: No Labs: CBC, BMP 04/15/17 06:45 04/15/17 06:45 INR, PTT INR 1.02 (0.82-1.09) 03/29/17 07:00 Problem List - Problems (1) Hemoptysis Code(s): R04.2 - HEMOPTYSIS (2) COPD (chronic obstructive pulmonary disease) Code(s): J44.9 - CHRONIC OBSTRUCTIVE PULMONARY DISEASE, UNSPECIFIED Qualifiers: COPD type: COPD with acute exacerbation Qualified Code(s): J44.1 - Chronic obstructive pulmonary disease with (acute) exacerbation (3) Suprapubic catheter Code(s): Z93.59 - OTHER CYSTOSTOMY STATUS (4) Protein-calorie malnutrition, severe Code(s): E43 - UNSPECIFIED SEVERE PROTEIN-CALORIE MALNUTRITION Assessment/Plan (1) Pneumonia -appreciate ID assistance -continue merrem and vancomycin -needs 4 more days -patient declines PICC, can finish with peripherals as an outpatient once ready (2) COPD (chronic obstructive pulmonary disease) Assessment/Plan: -appreciate pulmonary assistance -continue steroid taper Code(s): J44.9 - CHRONIC OBSTRUCTIVE PULMONARY DISEASE, UNSPECIFIED Qualifiers: COPD type: COPD with acute exacerbation Qualified Code(s): J44.1 - Chronic obstructive pulmonary disease with (acute) exacerbation (3) Suprapubic catheter Assessment/Plan: -changed by urology Code(s): Z93.59 - OTHER CYSTOSTOMY STATUS (4) Protein-calorie malnutrition, severe Assessment/Plan -continue at current rate, at goal Code(s): E43 - UNSPECIFIED SEVERE PROTEIN-CALORIE MALNUTRITION (5) Hemoptysis -resolved (6) Constipation -bisacodyl suppository Disposition -plan for discharge to SNF tomorrow -patient does not want to stop TF at this time
[2017-04-18] MEDS: VANCOMYCIN 1,000 MG in DEXTROSE 5%-WATER - 250 ML IVPB SCH (18:22)
[2017-04-18] MEDS: SENNOSIDES 8.8 MG/5 ML BULK BOTTLE PO SCH (21:30)
[2017-04-19] MEDS: traMADol HCL 50 MG TABLET PO PRN ×3 (01:37→19:54)
[2017-04-19] MEDS ORDERED: PT OWN MED DRAWER 7, Y5N ONE ×2 (02:39→16:41)
[2017-04-19] MEDS: MEROPENEM 1 GM PUSH 1 GM/20 ML DISP.SYRIN IVPUSH SCH ×4 (02:45→17:59)
[2017-04-19] MEDS: ALBUTEROL SO4 2.5/IPRATROPIUM 0.5 INH SOL 3 ML VIAL.NEB. NEB SCH ×4 (07:05→18:16)
[2017-04-19] MEDS: predniSONE 20 MG TABLET (UD) PO SCH (10:23)
[2017-04-19] MEDS: OXYBUTYNIN CHLORIDE 5 MG TABLET PO SCH (10:23)
[2017-04-19] MEDS: diazePAM 5 MG TABLET PEG PRN ×2 (10:24→17:58)
[2017-04-19] MEDS: RANITIDINE HCL 150 MG TABLET (FP) PO SCH (10:25)
[2017-04-19] MEDS: POLYETHYLENE GLYCOL 3350 119 GM BTL PEG SCH (10:25)
[2017-04-19] MEDS: DOCUSATE NA 100 MG/10 ML UNIT-DOSE CUPS PO SCH (10:25)
--- NOTE | 2017-04-19 11:17 | DS ---
Physical Examination Vital Signs: Vital Signs Temperature 36.3 C L 04/19/17 05:00 Pulse Rate 58 L 04/19/17 05:00 Respiratory Rate 18 04/19/17 05:00 Blood Pressure 106/70 04/19/17 05:00 O2 Sat by Pulse Oximetry (%) 98 04/18/17 21:00 Constitutional: Yes: No Distress, Calm, Thin Cardiovascular: Yes: Regular Rate and Rhythm. No: Gallop, Murmur, Rub Respiratory: Yes: Regular, CTA Bilaterally. No: Rales, Rhonchi, Wheezes Gastrointestinal: Yes: Normal Bowel Sounds, Soft. No: Distention, Tenderness Extremities: Yes: WNL Edema: No Labs: CBC, BMP 04/15/17 06:45 04/15/17 06:45 Discharge Summary Reason For Visit: HEMOPTYSIS Current Active Problems Hemoptysis (Acute) Protein-calorie malnutrition, severe (Acute) Hospital Course: (1) Pneumonia (2) COPD (chronic obstructive pulmonary disease) Code(s): J44.9 - CHRONIC OBSTRUCTIVE PULMONARY DISEASE, UNSPECIFIED Qualifiers: COPD type: COPD with acute exacerbation Qualified Code(s): J44.1 - Chronic obstructive pulmonary disease with (acute) exacerbation (3) Suprapubic catheter Code(s): Z93.59 - OTHER CYSTOSTOMY STATUS (4) Protein-calorie malnutrition, severe Code(s): E43 - UNSPECIFIED SEVERE PROTEIN-CALORIE MALNUTRITION (5) Hemoptysis (6) Constipation Mr Nash is a pleasant 61 year old male who comes in with hemoptysis. He was admitted to the hospital and seen by pulmonary and CT surgery. He was treated for a COPD exacerbation, he underwent bronchoscopy and endoscopy to evaluate source of bleeding. His bronchial washings were sent for culture and grew pseudomonas and MRSA. ID was consulted and he was treated with merrem and vancomycin. He has 3 days left for treatment of this. His hemoptysis resolved and he is currently stable. He was seen by urology and his suprapubic catheter was changed while here. Mr Nash expressed some interest in [facility]. He was made aware that to go to [facility] he would need to stop his tube feeds. He was seen by psychiatry and evaluated, he was found to have capacity and not depressed. Ethics was also consulted and after discussing with ethics he decided to continue with tube feeding and go back to [facility]. However he says that if he has another episode of hemoptysis he would prefer to stop tube feeds and be transferred to [facility]. He is currently stable for discharge to SNF. His tube feeds should be continued there, he is on Jevity 1.5 @ 75ml/hr with additional H2O 30ml/hr for 16 hours. This is his goal. 37 minutes spent in preparation of this discharge Condition: Stable - Instructions Diet, Activity, Other Instructions: Tube feeds: Jevity 1.5 at 75ml/hr with additional 30ml/hr of water with tube feeds. Run for 16 hours a day. Resume previous activity. Vancomycin and merrem for 3 days then stop. Prednisone 10mg daily for 3 days then 5mg daily for 3 days then stop Referrals: Christopher Dos Santos MD [Primary Care Provider] - Disposition[facility] - Home Medications Comprehensive Discharge Medication List: Ambulatory Orders Acetaminophen [Tylenol] 325 mg PO QID 03/28/17 Albuterol Sulfate [Ventolin -] 2.5 mg PO TID 03/28/17 Docusate Sodium [Colace -] 300 mg PO TID 03/28/17 Metoclopramide Oral Soln [Reglan Oral Solution -] 5 mg GT BID 03/28/17 Oxybutynin Chloride 10 mg PO DAILY 03/28/17 Polyethylene Glycol 3350 [Laxaclear] 1,700 gm PO DAILY 03/28/17 Sennosides [Senna] 8.6 mg PO BID 03/28/17 Tramadol HCl 50 mg PO QID 03/28/17 Bisacodyl [Biscolax] 1 supp.rect MN PRN PRN 03/29/17 Cystex Plus Tablet 162 mg PEG DAILY 03/29/17 Diazepam [Valium] 5 mg PEG Q8H 03/29/17 Evgeny-128 5% 1 drop OU QID 03/29/17 Periguard Ointment TP 03/29/17 Ranitidine [Zantac -] 1 tab PEG BID 03/29/17 Meropenem [Merrem] 1 gm IV Q8H 3 Days vial 04/19/17 Prednisone 10 mg PEG DAILY 3 Days tablet 04/19/17 Vancomycin 1,000 mg IVPB DAILY@1900 3 Days vial 04/19/17
--- NOTE | 2017-04-19 14:23 | PN ---
Progress Note, Physician History of Present Illness: Pt is alert and without distress. Remains afebrile. Without cough/hemoptysis. No diarrhea/abd discomfort. - Current Medication List Current Medications: Active Medications Acetaminophen (Tylenol -) 325 mg PO Q6H PRN PRN Reason: PAIN OR FEVER Albuterol/Ipratropium (Duoneb -) 1 amp NEB Q4HWA ESVIN Last Admin: 04/19/17 10:29 Dose: 1 amp Diazepam (Valium -) 10 mg PEG Q8H PRN PRN Reason: ANXIETY Last Admin: 04/19/17 10:24 Dose: 10 mg Docusate Sodium (Colace Liquid -) 200 mg PO DAILY PRN PRN Reason: CONSTIPATION Last Admin: 04/07/17 14:52 Dose: 200 mg Docusate Sodium (Colace Liquid -) 200 mg PO DAILY [facility] Last Admin: 04/19/17 10:25 Dose: Not Given IV Flush (Picc Line Flush) 8 ml IVPUSH PRN PRN PRN Reason: Protocol Meropenem (Merrem (Restricted To Id) -) 1 gm in 20 mls @ 100 mls/hr IVPUSH Q8H- IV ESVIN PRN Reason: Protocol Last Admin: 04/19/17 10:29 Dose: 100 mls/hr Vancomycin HCl 1,000 mg/ (Dextrose) 250 mls @ 250 mls/hr IVPB DAILY@1900 ESVIN PRN Reason: Protocol Last Admin: 04/18/17 18:22 Dose: 250 mls/hr Oxybutynin Chloride (Ditropan -) 10 mg PO DAILY [facility] Last Admin: 04/19/17 10:23 Dose: 10 mg Polyethylene Glycol (Miralax (For Daily Use) -) 17 gm PEG BID [facility] Last Admin: 04/19/17 10:25 Dose: Not Given Prednisone (Deltasone -) 20 mg PO DAILY [facility] Last Admin: 04/19/17 10:23 Dose: 20 mg Ranitidine HCl (Zantac -) 150 mg PO BID [facility] Last Admin: 04/19/17 10:25 Dose: 150 mg Senna (Senna Oral Solution -) 8.8 mg PO HS [facility] Last Admin: 04/18/17 21:30 Dose: 8.8 mg Simethicone (Mylicon Liquid -) 40 mg GT QID PRN PRN Reason: GAS Tramadol HCl (Ultram -) 50 mg PO Q6H PRN PRN Reason: PAIN Last Admin: 04/19/17 12:22 Dose: 50 mg - Objective Vital Signs: Vital Signs Temperature 98.2 F 04/19/17 13:42 Pulse Rate 76 04/19/17 13:42 Respiratory Rate 18 04/19/17 13:42 Blood Pressure 104/84 04/19/17 13:42 O2 Sat by Pulse Oximetry (%) 98 04/18/17 21:00 Constitutional: Yes: No Distress, Calm Neck: Yes: Supple Cardiovascular: Yes: Regular Rate and Rhythm Respiratory: Yes: CTA Bilaterally Gastrointestinal: Yes: Normal Bowel Sounds, Soft Neurological: Yes: Alert, Oriented Labs: CBC, BMP 04/15/17 06:45 04/15/17 06:45 INR, PTT INR 1.02 (0.82-1.09) 03/29/17 07:00 Problem List - Problems (1) Hemoptysis Code(s): R04.2 - HEMOPTYSIS (2) Protein-calorie malnutrition, severe Code(s): E43 - UNSPECIFIED SEVERE PROTEIN-CALORIE MALNUTRITION (3) Asthma Code(s): J45.909 - UNSPECIFIED ASTHMA, UNCOMPLICATED (4) COPD (chronic obstructive pulmonary disease) Code(s): J44.9 - CHRONIC OBSTRUCTIVE PULMONARY DISEASE, UNSPECIFIED Qualifiers: COPD type: COPD with acute exacerbation Qualified Code(s): J44.1 - Chronic obstructive pulmonary disease with (acute) exacerbation (5) HTN (hypertension) Code(s): I10 - ESSENTIAL (PRIMARY) HYPERTENSION Qualifiers: (6) Percutaneous endoscopic gastrostomy status Code(s): Z93.1 - GASTROSTOMY STATUS (7) Pneumonia Code(s): J18.9 - PNEUMONIA, UNSPECIFIED ORGANISM Qualifiers: (8) Suprapubic catheter Code(s): Z93.59 - OTHER CYSTOSTOMY STATUS Assessment/Plan 61 y.o. male admitted with cough and hemoptysis, now resolved - continue current antibiotics for 3 more days - for d/c today pt stable
[2017-04-19 18:52] VITALS: BP 108/82; PULSE 68; TEMP 98.6
== END 2017-04-19 21:17 | DRG 166 ==
LOC: JER 21:08 → JERBED 23:41 → UNDOADMIN 23:55 → JERBED 23:55 → J6S 03-29 03:42
PROVIDERS: ADMIT Internal Medicine; ATTEND Internal Medicine
PROC: 0DD98ZX Extraction of Duodenum, Via Natural or Artificial Opening Endoscopic, Diagnostic (ICD-10-PCS; 2017-04-03)
PROC: 0B9M8ZX Drainage of Bilateral Lungs, Via Natural or Artificial Opening Endoscopic, Diagnostic (ICD-10-PCS; principal; 2017-04-03 13:00)
DX: J15.1 Pneumonia due to Pseudomonas (principal); E43 Unspecified severe protein-calorie malnutrition; J47.1 Bronchiectasis with (acute) exacerbation; R04.2 Hemoptysis; G24.8 Other dystonia; R64 Cachexia; Z68.1 Body mass index [BMI] 19.9 or less, adult; R13.10 Dysphagia, unspecified; K29.80 Duodenitis without bleeding; B95.62 Methicillin resistant Staphylococcus aureus infection as the cause of diseases classified elsewhere; I10 Essential (primary) hypertension; R91.1 Solitary pulmonary nodule; Z93.1 Gastrostomy status; N31.9 Neuromuscular dysfunction of bladder, unspecified; K21.9 Gastro-esophageal reflux disease without esophagitis; F41.9 Anxiety disorder, unspecified; K44.9 Diaphragmatic hernia without obstruction or gangrene; K59.00 Constipation, unspecified
CPT/HCPCS: 36415; 71010-TC; 71250-TC; 76705-TC; 76775-TC; 80048; 80053; 83735; 84100; 85025; 85027; 85379; 85610; 85730; 86850; 86900; 86901; 87040; 87070; 87102; 87116; 87186; 87205; 87206; 87210; 90688; 90732; 93005; 93010; 94010; 94640; 94760; 99284-25; G0008; G0009; G0480

== ENCOUNTER 2017-08-17 01:42 | Emergency (ER) | payer OTHER, BC ==
[2017-08-17 02:21] VITALS: BMI 16.2
--- NOTE | 2017-08-17 03:02 | PDOC ---
History of Present Illness - General History Source: Patient Exam Limitations: No Limitations - History of Present Illness Initial Comments: 08/17/17 04:01 The patient is a 61 year old male, with a significant past medical history of muscular dystonia, cervical fusion, neurogenic bladder, COPD, who presents to the emergency department with, hemoptysis beginning 4 hours ago. The patient states around 11 pm tonight he began to cough and noticed he was spitting up blood. The patient reports he has a recent admission to [facility] in april for hemoptysis and had a bronchoplasty performed. The patient states he has not experienced the hemoptysis again until tonight. The patient reports he is not on anticoagulants. The patient also states he has gastric and lower abdominal pain which he states is chronic, it is unchanged. The patient states he normally receives Tramadol for the abdominal pain. He denies any recent fevers, chills, headache or dizziness. He denies any recent nausea, vomit, diarrhea or constipation. He denies any recent chest pain or shortness of breath. He denies any recent dysuria, frequency, urgency or hematuria. Allergies: multiple allergies. See nursing notes. PCP: Dr. Tanner <Cornelio Nelson - Last Filed: 08/17/17 06:37> <Duncan Sanchez - Last Filed: 08/17/17 07:24> - General Chief Complaint: Hemoptysis Stated Complaint: VOMITING BLOOD Time Seen by Provider: 08/17/17 02:08 Past History <Cornelio Nelson - Last Filed: 08/17/17 06:37> - Past Medical History Asthma: Yes COPD: Yes GI Disorders: Yes (GERD) Disorders: Yes (NEUROGENIC BLADDER) HTN: Yes Psychiatric Problems: Yes (Anxiety,) - Surgical History GI Surgery: Yes (supra pubic sx) Neurologic Surgery: Yes (cervical fusion, dystonia) Orthopedic Surgery: Yes - Immunization History Immunization Up to Date: Yes - Suicide/Smoking/Psychosocial Hx Smoking History: Never smoked Have you smoked in the past 12 months: No Number of Cigarettes Smoked Daily: 0 Cigars Per Day: 0 Information on smoking cessation initiated: No Hx Alcohol Use: No Drug/Substance Use Hx: No Substance Use Type: None Hx Substance Use Treatment: No <Duncan Sanchez - Last Filed: 08/17/17 07:24> - Past Medical History Allergies/Adverse Reactions: Allergies Allergy/AdvReac Type Severity Reaction Status Date / Time iodine Allergy Severe Low Blood Verified 08/17/17 02:21 Pressure kiwi Allergy Intermediate Swelling Verified 08/17/17 02:21 latex Allergy Unknown Swelling Verified 08/17/17 02:21 shellfish derived Allergy Unknown Verified 08/17/17 02:21 ampicillin sodium Allergy Rash Verified 08/17/17 02:21 [From Unasyn] Fish Containing Products Allergy Difficulty Verified 08/17/17 02:21 Breathing Penicillins Allergy Rash Verified 08/17/17 02:21 sulbactam sodium Allergy Rash Verified 08/17/17 02:21 [From Unasyn] Sulfa (Sulfonamide Allergy Hives Verified 08/17/17 02:21 Antibiotics) [Sulfa(Sulfonamide Antibiotics)] Home Medications: Ambulatory Orders Acetaminophen [Tylenol] 325 mg PO QID 03/28/17 Albuterol Sulfate [Ventolin -] 2.5 mg PO TID 03/28/17 Docusate Sodium [Colace -] 300 mg PO TID 03/28/17 Metoclopramide Oral Soln [Reglan Oral Solution -] 5 mg GT BID 03/28/17 Polyethylene Glycol 3350 [Laxaclear] 1,700 gm PO DAILY 03/28/17 Sennosides [Senna] 8.6 mg PO BID 03/28/17 Tramadol HCl 50 mg PO QID 03/28/17 Bisacodyl [Biscolax] 1 supp.rect SD PRN PRN 03/29/17 Diazepam [Valium] 5 mg PEG Q8H 03/29/17 Ranitidine [Zantac -] 1 tab PEG BID 03/29/17 Prednisone [Deltasone] 40 mg PO DAILY #8 tablet 08/17/17 levoFLOXacin [Levaquin -] 500 mg PO DAILY #7 tablet 08/17/17 Review of Systems - Review of Systems Comments:: 08/17/17 04:01 CONSTITUTIONAL: No reported: Fever, Chills, Diaphoresis, Generalized Weakness, Malaise, Loss of Appetite HEENT: No reported: Rhinorrhea, Nasal Congestion, Throat Pain, Throat Swelling, Difficulty Swallowing, Mouth Swelling, Ear Pain, Eye Pain, Visual Changes CARDIOVASCULAR: No reported: Chest Pain, Syncope, Palpitations, Irregular Heart Rate, Lightheadedness, Peripheral Edema RESPIRATORY: Present: (+) Hemoptysis No reported: Shortness of Breath, SOB with Exertion, Orthopnea, Wheezing, Stridor, GASTROINTESTINAL: Present: (+) Gastric and lower abdominal pain (chronic) No reported: Abdominal Distension, Nausea, Vomiting, Diarrhea, Constipation, Melena, Hematochezia GENITOURINARY: No reported: Dysuria, Frequency, Urgency, Hesitancy, Flank Pain, Genital Pain MUSCULOSKELETAL: No reported: Myalgia, Arthralgia, Joint Swelling, Back pain, Neck Pain SKIN: No reported: Rash, Itching, Pallor HEMEATOLOGIC/IMMUNOLOGIC: No reported: Easy Bleeding, Easy Bruising, Lymphadenopathy, Frequent infections ENDOCRINE: No reported: Unexplained Weight Gain, Unexplained Weight Loss, Heat Intolerance , Cold Intolerance NEUROLOGIC: No reported: Headache, Focal Weakness, Paresthesias, Vertigo, Lightheadedness, Unsteady Gait, Seizure, Mental Status Changes, Incontinence PSYCHIATRIC: No reported: Anxiety, Depression <Cornelio Nelson - Last Filed: 08/17/17 06:37> *Physical Exam - Vital Signs Last Vital Signs Temp Pulse Resp BP Pulse Ox 98.3 F 66 19 116/84 97 08/17/17 02:07 08/17/17 02:07 08/17/17 02:07 08/17/17 02:07 08/17/17 02:07 - Physical Exam Comments: 08/17/17 04:01 GENERAL: The patient is awake, alert, and fully oriented, Nontoxic - in no acute distress. cachectic appearing HEAD: Normocephalic, atraumatic. EYES: extraocular movements intact, sclera anicteric, conjunctiva clear. ENT: Normal voice, Moist mucous membranes. NECK: Normal range of motion, supple LUNGS: Breath sounds equal, clear to auscultation bilaterally. No wheezes, no rhonchi, no rales. HEART: Regular rate and rhythm, ABDOMEN: G tube, suprapubic catheter, no focal tenderness EXTREMITIES: no edema. NEURO: stuttering speech SKIN: Warm, Dry, normal turgor, <Cornelio Nelson - Last Filed: 08/17/17 06:37> - Vital Signs Last Vital Signs Temp Pulse Resp BP Pulse Ox 98.3 F 66 19 116/84 97 08/17/17 02:07 08/17/17 02:07 08/17/17 02:07 08/17/17 02:07 08/17/17 02:07 <Duncan Sanchez - Last Filed: 08/17/17 07:24> Heart Score/ECG Review - ECG Impressions Comment:: 08/17/17 03:59 Twelve-lead EKG was performed and reviewed by me. There is normal sinus rhythm with a rate of 53 Left axis devation RBBB <Duncan Sanchez - Last Filed: 08/17/17 07:24> ED Treatment Course - LABORATORY CBC & Chemistry Diagram: 08/17/17 03:10 08/17/17 03:10 - ADDITIONAL ORDERS Additional order review: Laboratory Results 08/17/17 03:10 PT with INR 11.50 INR 1.02 08/17/17 03:10 RBC 3.80 L MCV 99.2 H MCHC 35.1 RDW 13.0 MPV 9.3 D Neutrophils % 63.7 Lymphocytes % 15.6 D Monocytes % 15.1 H Eosinophils % 5.2 H D Basophils % 0.4 - Medications Given in the ED: ED Medications Discontinued Medications Generic Name Dose Route Start Last Admin Trade Name Bola PRN Reason Stop Dose Admin Tramadol HCl 50 mg 08/17/17 03:27 08/17/17 03:37 Ultram - PO 08/17/17 03:28 50 mg ONCE ONE Administration <Cornelio Nelson - Last Filed: 08/17/17 06:37> - LABORATORY CBC & Chemistry Diagram: 08/17/17 03:10 08/17/17 03:10 <Duncan Sanchez - Last Filed: 08/17/17 07:24> Medical Decision Making - Medical Decision Making 08/17/17 06:[address] Garcia at 6 am. Pending call back. Second call placed to Dr. Garcia at 6:38 am. Pending call back. <Cornelio Nelson - Last Filed: 08/17/17 06:37> - Medical Decision Making 08/17/17 03:37 61y M hx of copd, muscular dystonia, cervical fusion s/p fx, neurogenic bladder w/ suprapubic cather presents today with a few hrs of hemoptysis - states that he got a G tube feeding and started coughing and sputting up some blood tingued sputum - no assoicated chest tightness/sob, leg swelling. pt notes that he has had some abd pain which is chronic for him and takes tramadol - no changes from baseline. no fever/chills, n/v, diarrhea, melena, bpr. pt had recent hospitalization for hemoptysis in apr 2017 where he was seen by pulm and CT surgery sp bronch (no blood in airway including lingula) and endoscopy (mild duodenitits, no gastritis or esopahgitis), his bronchial washings were + for pseudomonas and mrsa and was treated with abx. pt states he has been asymptmatic since then until tonight. ddx low volume hemoptysis- bornchitis, pna, aspiration will ck cxr will ck labs will reassess A portion of this note was documented by scribe services under my direction. I have reviewed the details of the note, within reason, and agree with the documentation with the following case summary and management plan written by me 08/17/17 04:56 pts labs reviewed unremarkable cxr negative for acute process pts coughing seems to be clearing, slightly blood tingued possible aspiration? as pt had a fairly comprehensive workup last week, consider possible dc with outpatient pulm fu will discuss with covering doctor for dr. Tanner 08/17/17 07:[address] merrill states pt has area of bronchiectasis on bronch - would give him course of levaquin and week of prednisone 40mg pt ok to be d/c with outpatient management <Duncan Sanchez - Last Filed: 08/17/17 07:24> *DC/Admit/Observation/Transfer - Attestations Scribe Attestion: 08/17/17 04:02 Documentation prepared by Cornelio Nelson, acting as certified medical coding specialist for Duncan Sanchez MD. <Cornelio Nelson - Last Filed: 08/17/17 06:37> - Discharge Dispostion Admit: No <Duncan Sanchez - Last Filed: 08/17/17 07:24> Diagnosis at time of Disposition: Hemoptysis - Discharge Dispostion Disposition: [facility] Condition at time of disposition: Stable - Prescriptions Prescriptions: levoFLOXacin [Levaquin -] 500 mg PO DAILY #7 tablet Prednisone [Deltasone] 40 mg PO DAILY #8 tablet - Referrals Referrals: Abad Tanner MD [Primary Care Provider] - Jorge A Garcia MD [Staff Physician] - - Patient Instructions Printed Discharge Instructions: DI for Hemoptysis Additional Instructions: Return to the emergency department immediately with ANY new, persistent or worsening symptoms. Take your levaquin daily starting 08/18. Take prednisone 40mg daily starting 08/18 You MUST call and follow up with your primary care doctor next week for further evaluation of your symptoms. Results were discussed with you. Please make sure your doctor reviews the results of your emergency evaluation. - Post Discharge Activity
[2017-08-17 03:27] LABS: BASO % 0.4 % (0-2.0); EOS % 5.2 % (0-4.5); HEMATOCRIT 37.7 % (35.4-49); HEMOGLOBIN 13.2 GM/dL (11.7-16.9); LYMPH % 15.6 % (8-40); MCH 34.8 pg (25.7-33.7); MCHC 35.1 g/dl (32.0-35.9); MEAN CELL VOLUME 99.2 fl (80-96); MEAN PLT VOLUME 9.3 fl (7.5-11.1); MONO % 15.1 % (3.8-10.2); NEUT % 63.7 % (42.8-82.8); PLATELET COUNT 199 K/MM3 (134-434); WHITE BLOOD COUNT 7.8 K/mm3 (4.0-10.0)
[2017-08-17] MEDS ORDERED: traMADol HCL 50 MG TABLET PO ONE (03:27)
[2017-08-17] MEDS ORDERED: traMADol HCL 50 MG TABLET ONE (03:33)
[2017-08-17 03:55] LABS: INR 1.02 (0.82-1.09); PROTHROMBIN TIME (PATIENT) 11.5 SEC (9.98-11.88)
[2017-08-17 04:11] LABS: ALBUMIN 3.7 g/dl (3.4-5.0); ANION GAP 5 (8-16); BILIRUBIN,TOTAL 0.3 mg/dL (0.2-1.0); BLOOD UREA NITROGEN 23 mg/dL (7-18); CALCIUM 8.7 mg/dL (8.5-10.1); CHLORIDE 102 mmol/L (98-107); CO2 30 mmol/L (21-32); CREATININE 0.6 mg/dL (0.7-1.3); GLUCOSE,RANDOM 78 mg/dL (74-106); LIPASE 88 U/L (73-393); POTASSIUM 4.1 mmol/L (3.5-5.1); SGOT/AST 31 U/L (15-37); SGPT/ALT 53 U/L (12-78); SODIUM 137 mmol/L (136-145)
[2017-08-17 04:14] LABS: ALK PHOS 106 U/L (45-117)
[2017-08-17] MEDS ORDERED: morphine CARPU-JECT 2 MG/1 ML DISP.SYRIN IVPUSH ONE (04:55)
[2017-08-17] MEDS ORDERED: MORPHINE SULFATE 10 MG/1 ML *VIAL ONE (05:17)
[2017-08-17] MEDS ORDERED: predniSONE 20 MG TABLET (UD) PO ONE (07:01)
[2017-08-17] MEDS ORDERED: predniSONE 20 MG TABLET (UD) ONE (07:54)
[2017-08-17 12:44] VITALS: BP 106/74; PULSE 69; TEMP 98
--- NOTE | 2017-08-17 17:50 | EKG ---
Test Reason : Blood Pressure : / mmHG Vent. Rate : 053 BPM Atrial Rate : 053 BPM P-R Int : 156 ms QRS Dur : 136 ms QT Int : 450 ms P-R-T Axes : 087 -59 077 degrees QTc Int : 422 ms POOR DATA QUALITY, INTERPRETATION MAY BE ADVERSELY AFFECTED SINUS BRADYCARDIA LEFT AXIS DEVIATION RIGHT BUNDLE BRANCH BLOCK MINIMAL VOLTAGE CRITERIA FOR LVH, MAY BE NORMAL VARIANT ABNORMAL ECG WHEN COMPARED WITH ECG OF 29-MAR-2017 02:24, NO SIGNIFICANT CHANGE WAS FOUND Confirmed by MD KYLE, CARA ([id number]) on 08/17/2017 5:49:56 PM Referred By: Confirmed By:CARA WRIGHT MD
== END 2017-08-17 12:44 ==
LOC: JER 01:42 → SUPCPDRO 01:42 → JER 12:44
DX: R04.2 Hemoptysis (principal); J47.9 Bronchiectasis, uncomplicated; J44.9 Chronic obstructive pulmonary disease, unspecified; G24.1 Genetic torsion dystonia; I10 Essential (primary) hypertension; K21.9 Gastro-esophageal reflux disease without esophagitis; F41.9 Anxiety disorder, unspecified; N31.9 Neuromuscular dysfunction of bladder, unspecified; R10.30 Lower abdominal pain, unspecified; G89.29 Other chronic pain; Z93.1 Gastrostomy status; Z93.59 Other cystostomy status; Z91.040 Latex allergy status; Z88.8 Allergy status to other drugs, medicaments and biological substances; Z91.018 Allergy to other foods
CPT/HCPCS: 36415; 71045-TC-FY; 80053; 82550; 83690; 84484; 85025; 85610; 93005; 93010; 96365; 96366; 99285-25

== ENCOUNTER 2017-09-11 20:54 | Inpatient (IN) | payer OTHER, BC ==
[2017-09-11 21:09] VITALS: BMI 19.3
[2017-09-11 21:37] LABS: BASO % 0.5 % (0-2.0); EOS % 4.5 % (0-4.5); HEMATOCRIT 33.5 % (35.4-49); HEMOGLOBIN 11.7 GM/dL (11.7-16.9); LYMPH % 23.8 % (8-40); MCH 34.5 pg (25.7-33.7); MCHC 35.1 g/dl (32.0-35.9); MEAN CELL VOLUME 98.5 fl (80-96); MONO % 15.8 % (3.8-10.2); NEUT % 55.4 % (42.8-82.8); PLATELET COUNT 230 K/MM3 (134-434); RDW 12.3 % (11.9-15.9); WHITE BLOOD COUNT 5.7 K/mm3 (4.0-10.0)
--- NOTE | 2017-09-11 21:49 | PDOC ---
History of Present Illness - General Chief Complaint: Hemoptysis Stated Complaint: COUGH Time Seen by Provider: 09/11/17 21:15 History Source: Patient - History of Present Illness Initial Comments: 09/12/17 00:26 61-year-old male with history of bronchiectasis, , dystonia with cervical fracture,, neurogenic bladder with suprapubic catheter, asthma, COPD, GERD, hypertension complaining of blood tinged vomitus 15 minutes after GT feeds. Patient will reports that he feels that he aspirated. Patient reports abdominal pain at the GT site and mid chest. denies SOB, patient reports fever 102 two days ago , afebrile today. denies urinary symptoms or pain. 09/12/17 00:59 Past History - Past Medical History Allergies/Adverse Reactions: Allergies Allergy/AdvReac Type Severity Reaction Status Date / Time iodine Allergy Severe Low Blood Verified 09/11/17 21:07 Pressure kiwi Allergy Intermediate Swelling Verified 09/11/17 21:07 latex Allergy Unknown Swelling Verified 09/11/17 21:07 shellfish derived Allergy Unknown Verified 09/11/17 21:07 ampicillin sodium Allergy Rash Verified 09/11/17 21:07 [From Unasyn] Fish Containing Products Allergy Difficulty Verified 09/11/17 21:07 Breathing Penicillins Allergy Rash Verified 09/11/17 21:07 sulbactam sodium Allergy Rash Verified 09/11/17 21:07 [From Unasyn] Sulfa (Sulfonamide Allergy Hives Verified 09/11/17 21:07 Antibiotics) [Sulfa(Sulfonamide Antibiotics)] Home Medications: Ambulatory Orders Acetaminophen [Tylenol] 325 mg GT QID 09/11/17 Albuterol 0.083% Nebulizer Jojo [Ventolin 0.083% Nebulizer Soln -] 1 neb NEB Q6H 09/11/17 Bisacodyl [Biscolax] 10 mg RC DAILY 09/11/17 Diazepam [Valium] 5 mg GT TID 09/11/17 Docusate Liquid [Colace Liquid -] 300 mg GT TID 09/11/17 Lps 16-100 Liquid 30 ml GT BID 09/11/17 Methenamine/Sodium Salicylate [Cystex Tablet] 1 each GT DAILY 09/11/17 Metoclopramide Oral Soln [Reglan *Liquid*] 10 mg GT BID 09/11/17 Polyethylene Glycol 3350 [Clearlax] 17 gm GT DAILY 09/11/17 Ranitidine [Zantac -] 150 mg GT BID 09/11/17 Sennosides [Senna] 17.2 mg GT DAILY 09/11/17 Tramadol HCl 50 mg GT TID 09/11/17 Asthma: Yes COPD: Yes GI Disorders: Yes (GERD) Disorders: Yes (NEUROGENIC BLADDER) HTN: Yes Psychiatric Problems: Yes (Anxiety,) - Surgical History Abdominal Surgery: Yes GI Surgery: Yes (supra pubic sx) Neurologic Surgery: Yes (cervical fusion, dystonia) Orthopedic Surgery: Yes - Immunization History Immunization Up to Date: Yes - Suicide/Smoking/Psychosocial Hx Smoking History: Unknown if ever smoked Have you smoked in the past 12 months: No Number of Cigarettes Smoked Daily: 0 Cigars Per Day: 0 Information on smoking cessation initiated: No Hx Alcohol Use: No Drug/Substance Use Hx: No Substance Use Type: None Hx Substance Use Treatment: No Review of Systems - Review of Systems Able to Perform ROS?: Yes Is the patient limited Italian proficient: No HEENTM: Yes: Other (hemoptysis) *Physical Exam - Vital Signs Last Vital Signs Temp Pulse Resp BP Pulse Ox 98.2 F 68 18 98/67 96 09/11/17 21:07 09/11/17 21:07 09/11/17 21:07 09/11/17 21:07 09/11/17 21:07 - Physical Exam General Appearance: Yes: Mild Distress Respiratory/Chest: positive: Lungs Clear Cardiovascular: positive: Regular Rhythm, Regular Rate Gastrointestinal/Abdominal: positive: Normal Bowel Sounds, Tender (at the GT site), Soft Male Genitalia: positive: other (supra pubic catheter in place) ED Treatment Course - LABORATORY CBC & Chemistry Diagram: 09/11/17 21:30 09/11/17 21:30 - RADIOLOGY Radiology Studies Ordered: Category Date Time Status CHEST X-RAY PORTABLE* [RAD] Stat Radiology 09/11/17 21:18 Ordered Progress Note - Progress Note Progress Note: A: hemoptysis; lung mass P ct chest ct abdomen and pelvis cbc cmp ua +3 leuks . no symptoms. will not treat patient signed out to [facility] for inpatient admission and management *DC/Admit/Observation/Transfer Diagnosis at time of Disposition: Lung mass, Hemoptysis, Gastrostomy complication Constipation Qualifiers: Constipation type: unspecified constipation type Qualified Code(s): K59.00 - Constipation, unspecified - Discharge Dispostion Admit: Yes - Referrals - Patient Instructions - Post Discharge Activity
[2017-09-11 22:11] LABS: ALBUMIN 3.3 g/dl (3.4-5.0); ANION GAP 6 (8-16); BILIRUBIN,TOTAL 0.6 mg/dL (0.2-1.0); BLOOD UREA NITROGEN 17 mg/dL (7-18); CALCIUM 8.5 mg/dL (8.5-10.1); CHLORIDE 103 mmol/L (98-107); CO2 28 mmol/L (21-32); CREATININE 0.5 mg/dL (0.7-1.3); GLUCOSE,RANDOM 78 mg/dL (74-106); POTASSIUM 3.7 mmol/L (3.5-5.1); SGOT/AST 27 U/L (15-37); SGPT/ALT 40 U/L (12-78); SODIUM 137 mmol/L (136-145); TOT PROT 6.4 g/dl (6.4-8.2)
[2017-09-11 22:12] LABS: ALK PHOS 114 U/L (45-117)
[2017-09-11] MEDS ORDERED: FAMOTIDINE IV 20 MG/12 ML VIAL IVPUSH ONE (22:33)
[2017-09-11 22:57] LABS: URINE APPEARANCE SLCLOUDY; URINE BILIRUBIN NEGATIVE (<2.0 mg/dL); URINE COLOR LTYELLOW; URINE GLUCOSE (UA) NEGATIVE (NEGATIVE); URINE KETONE NEGATIVE (NEGATIVE); URINE NITRITE NEGATIVE (NEGATIVE); URINE PROTEIN NEGATIVE (NEGATIVE); URINE UROBILINOGEN NEGATIVE mg/dL (0.2-1.0)
[2017-09-11 23:02] LABS: URINE LEUK ESTERASE 3+ (NEGATIVE)
[2017-09-11 23:03] LABS: URINE BACTERIA RARE /hpf (NONE SEEN); URINE MUCUS RARE
[2017-09-11] MEDS ORDERED: FAMOTIDINE 20 MG/50 ML IVPB 20 MG/50 ML MG IVPB ONE (23:13)
[2017-09-12] MEDS ORDERED: morphine CARPU-JECT 4 MG/1 ML DISP.SYRIN IVPUSH ONE ×2 (00:23→04:10)
[2017-09-12] MEDS ORDERED: morphine SULFATE 4 MG/ML VIAL ONE ×2 (01:00→04:15)
--- NOTE | 2017-09-12 01:33 | HP ---
CHIEF COMPLAINT: hemoptysis PCP:Dr. Tanner HISTORY OF PRESENT ILLNESS: 61-year-old male with history of bronchiectasis comes in from [facility] with complaining of blood tinged vomitus 15 minutes after GT feeds. Patient will reports that he feels that he aspirated. Patient reports abdominal pain at the GT site and mid chest. denies SOB, patient reports fever 102 two days ago , afebrile today. denies urinary symptoms or pain. During ER course of evaluation, found to have 3+ leuks in his urine and a lung mass on CT that was not previously found. Recent Travel:no PAST MEDICAL HISTORY:bronchiectasis, neurogenic bladder with a suprapubic tube, asthma, copd, gerd, htn, carpal tunnel, hemoptysis, dysphagsia requiring a peg tub for feed. dystonia for 32 yrs PAST SURGICAL HISTORY:peg placement, cervical neck fusion from a fx Social History:denies toxic habits Smoking: Alcohol: Drugs: Family History: Allergies iodine Allergy (Severe, Verified 09/11/17 21:07) Low Blood Pressure kiwi Allergy (Intermediate, Verified 09/11/17 21:07) Swelling latex Allergy (Unknown, Verified 09/11/17 21:07) Swelling swelling in throat and face as reported by pt shellfish derived Allergy (Unknown, Verified 09/11/17 21:07) ampicillin sodium [From Unasyn] Allergy (Verified 09/11/17 21:07) Rash Fish Containing Products Allergy (Verified 09/11/17 21:07) Difficulty Breathing Penicillins Allergy (Verified 09/11/17 21:07) Rash sulbactam sodium [From Unasyn] Allergy (Verified 09/11/17 21:07) Rash Sulfa (Sulfonamide Antibiotics) [Sulfa(Sulfonamide Antibiotics)] Allergy ( Verified 09/11/17 21:07) Hives HOME MEDICATIONS: Home Medications Medication Instructions Recorded Acetaminophen [Tylenol] 325 mg GT QID 09/11/17 Albuterol 0.083% Nebulizer Jojo 1 neb NEB Q6H 09/11/17 [Ventolin 0.083% Nebulizer Soln -] Bisacodyl [Biscolax] 10 mg RC DAILY 09/11/17 Diazepam [Valium] 5 mg GT TID 09/11/17 Docusate Liquid [Colace Liquid -] 300 mg GT TID 09/11/17 Lps 16-100 Liquid 30 ml GT BID 09/11/17 Methenamine/Sodium Salicylate 1 each GT DAILY 09/11/17 [Cystex Tablet] Metoclopramide Oral Soln [Reglan 10 mg GT BID 09/11/17 *Liquid*] Polyethylene Glycol 3350 [Clearlax] 17 gm GT DAILY 09/11/17 Ranitidine [Zantac -] 150 mg GT BID 09/11/17 Sennosides [Senna] 17.2 mg GT DAILY 09/11/17 Tramadol HCl 50 mg GT TID 09/11/17 REVIEW OF SYSTEMS Pt sleeping after CT PHYSICAL EXAMINATION Vital Signs - 24 hr 09/11/17 21:07 Temperature 98.2 F Pulse Rate 68 Respiratory 18 Rate Blood Pressure 98/67 O2 Sat by Pulse 96 Oximetry (%) GENERAL: Awake, alert, and fully oriented, HEAD: Normal with no signs of trauma. LUNGS: Breath sounds equal, clear to auscultation bilaterally. No wheezes, and no crackles. No accessory muscle use. HEART: Regular rate and rhythm, normal S1 and S2 without murmur, rub or gallop. ABDOMEN: Soft, nontender, not distended, normoactive bowel sounds, no guarding, no rebound, no masses. No hepatomegaly or splenomegaly. MUSCULOSKELETAL: Normal range of motion at all joints for pt, with dystonia. No bony deformities or tenderness. No CVA tenderness. UPPER EXTREMITIES: 2+ pulses, warm, well-perfused. No cyanosis. No clubbing. No peripheral edema. LOWER EXTREMITIES: 2+ pulses, warm, well-perfused. No calf tenderness. No peripheral edema. NEUROLOGICAL: Normal speech. Normal gait. PSYCHIATRIC: Cooperative. Good eye contact. Appropriate mood and affect. SKIN: Warm, dry, normal turgor, no rashes or lesions noted, normal capillary refill. Laboratory Results - last 24 hr 09/11/17 09/11/17 09/11/17 21:30 21:30 21:54 WBC 5.7 RBC 3.40 L Hgb 11.7 D Hct 33.5 L MCV 98.5 H MCH 34.5 H MCHC 35.1 RDW 12.3 Plt Count 230 MPV 8.0 D Neutrophils % 55.4 Lymphocytes % 23.8 D Monocytes % 15.8 H Eosinophils % 4.5 Basophils % 0.5 Sodium 137 Potassium 3.7 Chloride 103 Carbon Dioxide 28 Anion Gap 6 L BUN 17 D Creatinine 0.5 L Creat Clearance w eGFR > 60 Random Glucose 78 Calcium 8.5 Total Bilirubin 0.6 D AST 27 ALT 40 D Alkaline Phosphatase 114 Troponin I < 0.02 Cancelled Total Protein 6.4 Albumin 3.3 L Urine Color Urine Appearance Urine pH Ur Specific [place] Urine Protein Urine Glucose (UA) Urine Ketones Urine Blood Urine Nitrite Urine Bilirubin Urine Urobilinogen Ur Leukocyte Esterase Urine WBC (Auto) Urine RBC (Auto) Urine Bacteria Urine Mucus 09/11/17 22:40 WBC RBC Hgb Hct MCV MCH MCHC RDW Plt Count MPV Neutrophils % Lymphocytes % Monocytes % Eosinophils % Basophils % Sodium Potassium Chloride Carbon Dioxide Anion Gap BUN Creatinine Creat Clearance w eGFR Random Glucose Calcium Total Bilirubin AST ALT Alkaline Phosphatase Troponin I Total Protein Albumin Urine Color Ltyellow Urine Appearance Slcloudy Urine pH 7.0 Ur Specific [place] 1.008 Urine Protein Negative Urine Glucose (UA) Negative Urine Ketones Negative Urine Blood Negative Urine Nitrite Negative Urine Bilirubin Negative Urine Urobilinogen Negative Ur Leukocyte Esterase 3+ H Urine WBC (Auto) 65 Urine RBC (Auto) 1 Urine Bacteria Rare Urine Mucus Rare ASSESSMENT/PLAN: Problem List - Problem (1) Gastrostomy complication Assessment/Plan: -pain at peg site -appears normal with out bleeding or drainage -hold feeds for now Code(s): K94.20 - GASTROSTOMY COMPLICATION, UNSPECIFIED (2) Hemoptysis Assessment/Plan: -no hemoptysis seen in ER -no airway obstruction or cough noted. -cbc stable Code(s): R04.2 - HEMOPTYSIS (3) Lung mass Assessment/Plan: -prelim from Image plan consultant reveals 2.2 x 2.2 mass suspicous for neoplasm; -Pulmonary consult ordered -await offical read from radiology -maintain oxygen sats >95 Code(s): R91.8 - OTHER NONSPECIFIC ABNORMAL FINDING OF LUNG FIELD (4) COPD (chronic obstructive pulmonary disease) Assessment/Plan: -bronchodilators as needed -monitor sats -pulmonary consult Code(s): J44.9 - CHRONIC OBSTRUCTIVE PULMONARY DISEASE, UNSPECIFIED Qualifiers: COPD type: COPD with acute exacerbation Qualified Code(s): J44.1 - Chronic obstructive pulmonary disease with (acute) exacerbation (5) Dysphagia Assessment/Plan: -pt currently NPO with c/o peg tube pain and hx of dysphagsia strongly suggests nothing by mouth -IVf for hydration Code(s): R13.10 - DYSPHAGIA, UNSPECIFIED (6) Dystonia Assessment/Plan: -restart home meds Code(s): G24.9 - DYSTONIA, UNSPECIFIED (7) Urinary tract infection Assessment/Plan: -+uti on ua, -await final cultures -start on broad spectrum ABT -strict I/O -v/ss Code(s): N39.0 - URINARY TRACT INFECTION, SITE NOT SPECIFIED Qualifiers: Urinary tract infection type: acute cystitis Hematuria presence: without hematuria Qualified Code(s): N30.00 - Acute cystitis without hematuria Visit type - Emergency Visit Emergency Visit: Yes Care time: The patient presented to the Emergency Department on the above date and was hospitalized for further evaluation of their emergent condition. - New Patient This patient is new to me today: Yes Date on this admission: 09/12/17 - Critical Care Critical Care patient: No Hospitalist Screening - Colonoscopy Questionnaire Colonoscopy Questionnaire: Colonoscopy Questionnaire - Patient: 50 - 75 years old and never had a screening colonoscopy: No History of colon or rectal polyps, or CA: No History of IBD, Crohn's disease or UC: No History of abdominal radiation therapy as a child: No - Relative: 1 with colon or rectal CA, or polyps at age 60 or younger: Unknown Colon or rectal CA diagnosed at age 45 or younger: Unknown Multiple relatives with colon or rectal CA: Unknown - Outcome: Screening Result: Negative Screen
[2017-09-12] MEDS ORDERED: ACETAMINOPHEN 325 MG TABLET (FP) PO PRN (01:50)
[2017-09-12] MEDS: DEXTROSE 5%-0.45% SALINE 1,000 ML IV SCH ×2 (02:40→19:30)
[2017-09-12] MEDS ORDERED: morphine SULFATE 4 MG/ML VIAL IVPUSH PRN (04:15)
[2017-09-12] MEDS: DOCUSATE NA 100 MG/10 ML UNIT-DOSE CUPS GT SCH ×2 (06:22→21:52)
[2017-09-12] MEDS: traMADol HCL 50 MG TABLET PEG SCH ×4 (06:22→21:54)
[2017-09-12] MEDS: diazePAM 5 MG TABLET GT SCH ×3 (06:22→21:52)
[2017-09-12] MEDS ORDERED: diazePAM 5 MG TABLET ONE (06:24)
[2017-09-12] MEDS ORDERED: traMADol HCL 50 MG TABLET ONE (06:24)
[2017-09-12] MEDS: ALBUTEROL SO4 0.083% IH SOL 2.5 MG/3 ML VIAL.NEB. NEB SCH ×4 (08:00→20:48)
[2017-09-12] MEDS ORDERED: FAMOTIDINE IV 20 MG/12 ML VIAL IVPUSH SCH (10:00)
[2017-09-12] MEDS: METOCLOPRAMIDE HCL 5 MG/5 ML UNIT DOSE CUP GT SCH ×2 (10:32→21:51)
[2017-09-12] MEDS: BISACODYL 10 MG SUPP.RECT RC SCH ×2 (10:32→10:56)
--- NOTE | 2017-09-12 10:48 | PN ---
Progress Note, Physician Chief Complaint: Mr Nash says he is feeling better today, says he is not coughing currently and the blood has stopped. No cp, sob, n/v. - Current Medication List Current Medications: Active Medications Acetaminophen (Tylenol -) 650 mg PO Q4H PRN PRN Reason: PAIN LEVEL 1-5 Albuterol Sulfate (Ventolin 0.083% Nebulizer Soln -) 1 amp NEB RQID [facility] Bisacodyl (Dulcolax Suppository -) 10 mg RC DAILY [facility] Last Admin: 09/12/17 10:32 Dose: 10 mg Diazepam (Valium -) 5 mg GT TID [facility] Last Admin: 09/12/17 06:22 Dose: 5 mg Docusate Sodium (Colace Liquid -) 300 mg GT TID [facility] Last Admin: 09/12/17 06:22 Dose: 300 mg Dextrose/Sodium Chloride (D5-1/2ns -) 1,000 mls @ 100 mls/hr IV ASDIR [facility] Last Admin: 09/12/17 02:40 Dose: 100 mls/hr Metoclopramide HCl (Reglan Oral Solution -) 10 mg GT BID [facility] Last Admin: 09/12/17 10:32 Dose: 10 mg Morphine Sulfate (Morphine Sulfate) 2 mg IVPUSH Q4H PRN PRN Reason: PAIN LEVEL 6-10 Polyethylene Glycol (Miralax (For Daily Use) -) 17 gm PEG DAILY [facility] Tramadol HCl (Ultram -) 50 mg PEG TID [facility] Last Admin: 09/12/17 06:22 Dose: 50 mg - Objective Vital Signs: Vital Signs Temperature 36.8 C 09/12/17 08:15 Pulse Rate 74 09/12/17 08:15 Respiratory Rate 20 09/12/17 08:15 Blood Pressure 145/75 09/12/17 08:15 O2 Sat by Pulse Oximetry (%) 98 09/12/17 06:27 Constitutional: Yes: No Distress, Calm, Thin Cardiovascular: Yes: Regular Rate and Rhythm. No: Gallop, Murmur, Rub Respiratory: Yes: Regular, CTA Bilaterally, On Nasal O2. No: Rales, Rhonchi, Wheezes Gastrointestinal: Yes: Normal Bowel Sounds, Soft. No: Distention, Tenderness Extremities: Yes: WNL Edema: No Labs: CBC, BMP 09/11/17 21:30 09/11/17 21:30 Problem List - Problems (1) Cough with hemoptysis Assessment/Plan: -patient presents with outpatient cough and hemoptysis -currently resolved -patient feels secondary to tube feeds -may have chronic aspiration -will hold TF currently -restart in am -possible discharge tomorrow Code(s): R04.2 - HEMOPTYSIS (2) COPD (chronic obstructive pulmonary disease) Assessment/Plan: -not in exacerbation -appreciate pulmonary assistance -continue albuterol Code(s): J44.9 - CHRONIC OBSTRUCTIVE PULMONARY DISEASE, UNSPECIFIED Qualifiers: COPD type: COPD with acute exacerbation Qualified Code(s): J44.1 - Chronic obstructive pulmonary disease with (acute) exacerbation (3) Cavitary lesion of lung Assessment/Plan: -seen on previous CT scan -case d/w Dr Bolton -to d/w patient CT scan observation per outpatient PET scan Code(s): J98.4 - OTHER DISORDERS OF LUNG (4) Dysphagia Assessment/Plan: -PEG tube placed Code(s): R13.10 - DYSPHAGIA, UNSPECIFIED (5) Dystonia Assessment/Plan: -unchanged Code(s): G24.9 - DYSTONIA, UNSPECIFIED (6) Protein-calorie malnutrition, severe Assessment/Plan: -chronic -holding TF tonight -restart in am Code(s): E43 - UNSPECIFIED SEVERE PROTEIN-CALORIE MALNUTRITION (7) Suprapubic catheter Assessment/Plan: -stable Code(s): Z93.59 - OTHER CYSTOSTOMY STATUS
[2017-09-12] MEDS ORDERED: ALBUTEROL SO4 0.083% IH SOL 2.5 MG/3 ML VIAL.NEB. NEB ONE (11:38)
[2017-09-12] MEDS: POLYETHYLENE GLYCOL 3350 119 GM BTL PEG SCH (11:38)
--- NOTE | 2017-09-12 12:59 | EKG ---
Test Reason : Blood Pressure : / mmHG Vent. Rate : 060 BPM Atrial Rate : 060 BPM P-R Int : 146 ms QRS Dur : 134 ms QT Int : 430 ms P-R-T Axes : 097 -62 073 degrees QTc Int : 430 ms POOR DATA QUALITY, INTERPRETATION MAY BE ADVERSELY AFFECTED NORMAL SINUS RHYTHM RIGHT BUNDLE BRANCH BLOCK LEFT ANTERIOR FASCICULAR BLOCK BIFASCICULAR BLOCK ABNORMAL ECG WHEN COMPARED WITH ECG OF 17-AUG-2017 03:29, NO SIGNIFICANT CHANGE WAS FOUND Confirmed by SHILPI BISWAS MD ([id number]) on 09/12/2017 12:59:06 PM Referred By: Confirmed By:SHILPI BISWAS MD
--- NOTE | 2017-09-12 14:35 | CON.PULM ---
Consult Consult Specialty:: PULM/CCM Referred by:: CARLEY Reason for Consultation:: Hemoptysis - History of Present Illness Chief Complaint: coughing / vomiting blood History of Present Illness: 61 M, well known to our service. Bronchiectasis with intermittent hemoptysis. S /P bronchoscopy with suspected chronic atelectasis in the left mid lung zone ( appears slightly better on most recent imaging), chronic aspiration, and GT. No travel history or sick contacts. Reports some intermittent gum bleeding. None seen in last 24 hours since he did not brush his teeth. No epistaxis. Denies fever or chills. 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 21 year) Cardio/Vascular: Yes: HTN Pulmonary: Yes: Asthma, Pneumonia, Sleep Apnea, Other (Cavitary lesion in lung ruled out for TB) Gastrointestinal: Yes: Constipation, GERD, Other (dysphagia) Hepatobiliary: Yes: Other (as noted in medical record.) Renal/: Yes: BPH (s/p thermal prostate procedure), Neurogenic Bladder ( suprapubic tube ), UTI Infectious Disease: Yes: Other (influenza b august 2013) Psych: Yes: Depression Musculoskeletal: Yes: Other (Muscular dystonia) - Past Surgical History Past Surgical History: Yes: Laminectomy (cervical laminectomy with fusion) - Alcohol/Substance Use Hx Alcohol Use: No History of Substance Use: reports: None Date of Last Use: 05/18/78 (estimated) - Smoking History Smoking history: Unknown if ever smoked Have you smoked in the past 12 months: No Aproximately how many cigarettes per day: 0 - Social History Usual Living Arrangement: Alone ADL: Support Services 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 History of Recent Travel: No Home Medications - Allergies Allergies/Adverse Reactions: Allergies Allergy/AdvReac Type Severity Reaction Status Date / Time iodine Allergy Severe Low Blood Verified 09/11/17 21:07 Pressure kiwi Allergy Intermediate Swelling Verified 09/11/17 21:07 latex Allergy Unknown Swelling Verified 09/11/17 21:07 shellfish derived Allergy Unknown Verified 09/11/17 21:07 ampicillin sodium Allergy Rash Verified 09/11/17 21:07 [From Unasyn] Fish Containing Products Allergy Difficulty Verified 09/11/17 21:07 Breathing Penicillins Allergy Rash Verified 09/11/17 21:07 sulbactam sodium Allergy Rash Verified 09/11/17 21:07 [From Unasyn] Sulfa (Sulfonamide Allergy Hives Verified 09/11/17 21:07 Antibiotics) [Sulfa(Sulfonamide Antibiotics)] - Home Medications Home Medications: Ambulatory Orders Acetaminophen [Tylenol] 325 mg GT QID 09/11/17 Albuterol 0.083% Nebulizer Jojo [Ventolin 0.083% Nebulizer Soln -] 1 neb NEB Q6H 09/11/17 Bisacodyl [Biscolax] 10 mg RC DAILY 09/11/17 Diazepam [Valium] 5 mg GT TID 09/11/17 Docusate Liquid [Colace Liquid -] 300 mg GT TID 09/11/17 Lps 16-100 Liquid 30 ml GT BID 09/11/17 Methenamine/Sodium Salicylate [Cystex Tablet] 1 each GT DAILY 09/11/17 Metoclopramide Oral Soln [Reglan *Liquid*] 10 mg GT BID 09/11/17 Polyethylene Glycol 3350 [Clearlax] 17 gm GT DAILY 09/11/17 Ranitidine [Zantac -] 150 mg GT BID 09/11/17 Sennosides [Senna] 17.2 mg GT DAILY 09/11/17 Tramadol HCl 50 mg GT TID 09/11/17 Family Disease History - Family Disease History Family Disease History: Diabetes: Father (mild cognitive decline), Heart Disease : Father, CA: Mother (, colon cancer), Other: Father Review of Systems - Review of Systems Constitutional: reports: Fever. denies: Chills, Malaise, Night Sweats, Weakness Eyes: reports: No Symptoms HENT: reports: No Symptoms Neck: reports: No Symptoms Cardiovascular: reports: Chest Pain. denies: Edema, Palpitations, Shortness of Breath Respiratory: reports: Cough, Hemoptysis. denies: SOB, SOB on Exertion, Wheezing Gastrointestinal: reports: Abdominal Pain, Dysphagia, Vomiting, Vomiting Blood. denies: Constipation, Diarrhea, Melena, Rectal Bleeding Genitourinary: reports: No Symptoms Breasts: reports: No Symptoms Reported Musculoskeletal: reports: No Symptoms Integumentary: reports: No Symptoms Neurological: reports: No Symptoms Endocrine: reports: No Symptoms Hematology/Lymphatic: reports: No Symptoms Psychiatric: reports: No Symptoms Physical Exam Vital Sings: Vital Signs Temperature 98.3 F 09/12/17 13:30 Pulse Rate 60 09/12/17 13:30 Respiratory Rate 20 09/12/17 13:30 Blood Pressure 120/74 09/12/17 13:30 O2 Sat by Pulse Oximetry (%) 98 09/12/17 11:53 Constitutional: Yes: No Distress, Anxious, Thin Eyes: Yes: Conjunctiva Clear, EOM Intact HENT: Yes: Atraumatic, Normocephalic Neck: Yes: Supple, Trachea Midline Cardiovascular: Yes: Regular Rate and Rhythm Respiratory: Yes: CTA Bilaterally, Cough, Diminished. No: Accessory Muscle Use , On Nasal O2, Rales, Rhonchi, SOB, Stridor, Tachypnea, Wheezes ...Inspection: Yes: Scoliosis Gastrointestinal: Yes: Normal Bowel Sounds, Soft, Other (PEG) Renal/: Yes: WNL Breast(s): Yes: WNL Musculoskeletal: Yes: WNL Extremities: Yes: WNL Edema: No Peripheral Pulses WNL: Yes Integumentary: Yes: WNL Neurological: Yes: Alert, Oriented ...Motor Strength: WNL Psychiatric: Yes: WNL, Alert, Oriented Labs: CBC, BMP 09/11/17 21:30 09/11/17 21:30 Imaging - Results Chest X-ray: Report Reviewed, Image Reviewed Cat Scan: Report Reviewed, Image Reviewed Problem List - Problems (1) Constipation Code(s): K59.00 - CONSTIPATION, UNSPECIFIED Qualifiers: Constipation type: unspecified constipation type Qualified Code(s): K59.00 - Constipation, unspecified (2) Hemoptysis Code(s): R04.2 - HEMOPTYSIS (3) Lung mass Code(s): R91.8 - OTHER NONSPECIFIC ABNORMAL FINDING OF LUNG FIELD (4) Asthma Code(s): J45.909 - UNSPECIFIED ASTHMA, UNCOMPLICATED (5) COPD (chronic obstructive pulmonary disease) Code(s): J44.9 - CHRONIC OBSTRUCTIVE PULMONARY DISEASE, UNSPECIFIED Qualifiers: COPD type: COPD with acute exacerbation Qualified Code(s): J44.1 - Chronic obstructive pulmonary disease with (acute) exacerbation (6) Cavitary lesion of lung Code(s): J98.4 - OTHER DISORDERS OF LUNG (7) Cough with hemoptysis Code(s): R04.2 - HEMOPTYSIS (8) Dizziness Code(s): R42 - DIZZINESS AND GIDDINESS (9) Dysphagia Code(s): R13.10 - DYSPHAGIA, UNSPECIFIED (10) Dystonia Code(s): G24.9 - DYSTONIA, UNSPECIFIED (11) GERD (gastroesophageal reflux disease) Code(s): K21.9 - GASTRO-ESOPHAGEAL REFLUX DISEASE WITHOUT ESOPHAGITIS (12) HTN (hypertension) Code(s): I10 - ESSENTIAL (PRIMARY) HYPERTENSION Qualifiers: (13) Lightheadedness Code(s): R42 - DIZZINESS AND GIDDINESS (14) Percutaneous endoscopic gastrostomy status Code(s): Z93.1 - GASTROSTOMY STATUS (15) Protein-calorie malnutrition, severe Code(s): E43 - UNSPECIFIED SEVERE PROTEIN-CALORIE MALNUTRITION Assessment/Plan Do not suspect PNA: would monitor off ABX O2 as needed Quantify hemoptysis: patient reports about 1 table spoon since 2 AM BD TX PRN If remains stable -> No Pulmonary contraindication for D/C Will follow Thank you. Dr Bolton
[2017-09-13] MEDS: DEXTROSE 5%-0.45% SALINE 1,000 ML IV SCH (02:02)
[2017-09-13] MEDS: traMADol HCL 50 MG TABLET PEG SCH ×3 (05:39→21:45)
[2017-09-13] MEDS: DOCUSATE NA 100 MG/10 ML UNIT-DOSE CUPS GT SCH ×3 (05:39→21:45)
[2017-09-13] MEDS: diazePAM 5 MG TABLET GT SCH ×3 (05:40→21:45)
[2017-09-13 07:33] LABS: BASO % 0.2 % (0-2.0); EOS % 3.3 % (0-4.5); HEMATOCRIT 36.3 % (35.4-49); HEMOGLOBIN 12.6 GM/dL (11.7-16.9); LYMPH % 11.8 % (8-40); MCH 34.4 pg (25.7-33.7); MCHC 34.7 g/dl (32.0-35.9); MEAN CELL VOLUME 99.1 fl (80-96); MEAN PLT VOLUME 8.1 fl (7.5-11.1); MONO % 15.6 % (3.8-10.2); NEUT % 69.1 % (42.8-82.8); PLATELET COUNT 262 K/MM3 (134-434); RBC 3.66 M/mm3 (4.00-5.60)
[2017-09-13 08:07] LABS: ALBUMIN 3.4 g/dl (3.4-5.0); ANION GAP 8 (8-16); BILIRUBIN,TOTAL 0.9 mg/dL (0.2-1.0); BLOOD UREA NITROGEN 7 mg/dL (7-18); CHLORIDE 102 mmol/L (98-107); CO2 31 mmol/L (21-32); CREATININE 0.6 mg/dL (0.7-1.3); GLUCOSE,RANDOM 102 mg/dL (74-106); LIPASE 88 U/L (73-393); MAGNESIUM 2.4 mg/dL (1.8-2.4); PHOSPHOROUS 2.9 mg/dL (2.5-4.9); POTASSIUM 4.5 mmol/L (3.5-5.1); SGOT/AST 29 U/L (15-37); SGPT/ALT 42 U/L (12-78); SODIUM 141 mmol/L (136-145); TOT PROT 6.7 g/dl (6.4-8.2)
[2017-09-13 08:08] LABS: ALK PHOS 120 U/L (45-117)
[2017-09-13] MEDS: ALBUTEROL SO4 0.083% IH SOL 2.5 MG/3 ML VIAL.NEB. NEB SCH ×4 (08:29→20:39)
[2017-09-13] MEDS: BISACODYL 10 MG SUPP.RECT RC SCH (10:42)
[2017-09-13] MEDS: POLYETHYLENE GLYCOL 3350 119 GM BTL PEG SCH (10:42)
[2017-09-13] MEDS: METOCLOPRAMIDE HCL 5 MG/5 ML UNIT DOSE CUP GT SCH ×2 (10:43→21:45)
--- NOTE | 2017-09-13 11:54 | PN ---
Progress Note (short form) - Note Progress Note: PULMONARY WELL KNOWN BY OUR SERVICE VSS/SCANT BLOOD STREAKED SPUTUM ANICTERIC SCATTERED RHONCHI S1S2 BS + NO EDEMA/MUSCLE WASTING IMAGES OLD AND NEW REVIEWED LABS/MEDS/NOTES REVIEWED MYOTONIC DYSTROPHY PEG CHRONIC BRONCHIECTASIS WITH HEMOPTYSIS SUPRA PUBIC BLADDER CATHETER DOUBT NEOPLASTIC LESION NADINE FAVOR INFECTION/INFLAMMATION BRONCHODILATORS/O2/CHEST PT/ WOULD REPEAT CT CHEST 4-8 WEEKS NO OBJECTION TO TRANSFER Bryan GAYTAN MD
--- NOTE | 2017-09-13 15:02 | DS ---
Physical Examination Vital Signs: Vital Signs Temperature 37.1 C 09/13/17 13:52 Pulse Rate 71 09/13/17 13:52 Respiratory Rate 18 09/13/17 13:52 Blood Pressure 100/63 09/13/17 13:52 O2 Sat by Pulse Oximetry (%) 95 09/13/17 09:30 Constitutional: Yes: No Distress, Calm, Thin Cardiovascular: Yes: Regular Rate and Rhythm. No: Gallop, Murmur, Rub Respiratory: Yes: Regular, CTA Bilaterally. No: Rales, Rhonchi, Wheezes Gastrointestinal: Yes: Normal Bowel Sounds, Soft. No: Distention, Tenderness Extremities: Yes: WNL Edema: No Labs: CBC, BMP 09/13/17 06:00 09/13/17 06:00 Discharge Summary Reason For Visit: LUNG MASS HEMOPTYSIS GASTROSTOMY COMPLIC Current Active Problems Constipation (Acute) Gastrostomy complication (Acute) Hemoptysis (Acute) Lung mass (Acute) Hospital Course: (1) Cough with hemoptysis Code(s): R04.2 - HEMOPTYSIS (2) COPD (chronic obstructive pulmonary disease) Code(s): J44.9 - CHRONIC OBSTRUCTIVE PULMONARY DISEASE, UNSPECIFIED Qualifiers: COPD type: COPD with acute exacerbation Qualified Code(s): J44.1 - Chronic obstructive pulmonary disease with (acute) exacerbation (3) Cavitary lesion of lung Code(s): J98.4 - OTHER DISORDERS OF LUNG (4) Dysphagia Code(s): R13.10 - DYSPHAGIA, UNSPECIFIED (5) Dystonia Code(s): G24.9 - DYSTONIA, UNSPECIFIED (6) Protein-calorie malnutrition, severe Code(s): E43 - UNSPECIFIED SEVERE PROTEIN-CALORIE MALNUTRITION (7) Suprapubic catheter Code(s): Z93.59 - OTHER CYSTOSTOMY STATUS Mr Nash is a 61 year old male who comes in with possible hemoptysis. His tube feeds were held and he was seen by pulmonary. He did not have any hemoptysis while here. He also did not have fevers or signs of pneumonia on CT scan. His vital signs and labs were within normal limits. He was restarted on tube feeds and tolerated it. He is currently safe for discharge to SNF. 37 minutes spent in preparation of this discharge Condition: Stable - Instructions Diet, Activity, Other Instructions: resume previous activity and tube feeds Referrals: Jorge A Garcia MD [Staff Physician] - Abad Tanner MD [Staff Physician] - Disposition: [facility] - Home Medications Comprehensive Discharge Medication List: Ambulatory Orders Acetaminophen [Tylenol] 325 mg GT QID 09/11/17 Albuterol 0.083% Nebulizer Jojo [Ventolin 0.083% Nebulizer Soln -] 1 neb NEB Q6H 09/11/17 Bisacodyl [Biscolax] 10 mg RC DAILY 09/11/17 Diazepam [Valium] 5 mg GT TID 09/11/17 Docusate Liquid [Colace Liquid -] 300 mg GT TID 09/11/17 Lps 16-100 Liquid 30 ml GT BID 09/11/17 Methenamine/Sodium Salicylate [Cystex Plus Tablet] 1 each GT DAILY 09/11/17 Metoclopramide Oral Soln [Reglan Oral Solution -] 10 mg GT BID 09/11/17 Polyethylene Glycol 3350 [Clearlax] 17 gm GT DAILY 09/11/17 Ranitidine [Zantac -] 150 mg GT BID 09/11/17 Sennosides [Senna] 17.2 mg GT DAILY 09/11/17 Tramadol HCl 50 mg GT TID 09/11/17
[2017-09-13] MEDS ORDERED: PT OWN MED DRAWER 7, Y5N ONE (21:35)
[2017-09-14] MEDS ORDERED: PT OWN MED DRAWER 7, Y5N ONE (05:46)
[2017-09-14 06:50] VITALS: TEMP 98.1
[2017-09-14] MEDS: traMADol HCL 50 MG TABLET PEG SCH (06:57)
[2017-09-14] MEDS: DOCUSATE NA 100 MG/10 ML UNIT-DOSE CUPS GT SCH (06:57)
[2017-09-14] MEDS: diazePAM 5 MG TABLET GT SCH (07:07)
[2017-09-14] MEDS: ALBUTEROL SO4 0.083% IH SOL 2.5 MG/3 ML VIAL.NEB. NEB SCH ×2 (07:25→11:48)
[2017-09-14 13:51] VITALS: BP 122/71; PULSE 69
== END 2017-09-14 15:19 | DRG 393 ==
LOC: JER 20:54 → JERBED 09-12 01:08 → UNDOADMIN 09-12 01:28 → JERBED 09-12 01:28 → J7W 09-12 12:29 → UNDODISIN 09-13 18:11
PROVIDERS: ADMIT Internal Medicine; ATTEND Registered Nurse
DX: K94.20 Gastrostomy complication, unspecified (principal); E43 Unspecified severe protein-calorie malnutrition; J44.1 Chronic obstructive pulmonary disease with (acute) exacerbation; N39.0 Urinary tract infection, site not specified; Z68.1 Body mass index [BMI] 19.9 or less, adult; R04.2 Hemoptysis; R91.8 Other nonspecific abnormal finding of lung field; G24.9 Dystonia, unspecified; N31.9 Neuromuscular dysfunction of bladder, unspecified; K21.9 Gastro-esophageal reflux disease without esophagitis; I10 Essential (primary) hypertension; R13.10 Dysphagia, unspecified; J98.4 Other disorders of lung; G47.30 Sleep apnea, unspecified; F41.8 Other specified anxiety disorders; N40.0 Benign prostatic hyperplasia without lower urinary tract symptoms; K59.09 Other constipation; F32.9 Major depressive disorder, single episode, unspecified; L89.321 Pressure ulcer of left buttock, stage 1; L89.311 Pressure ulcer of right buttock, stage 1; L89.151 Pressure ulcer of sacral region, stage 1; Z93.59 Other cystostomy status
CPT/HCPCS: 36415; 71250-TC; 74176-TC; 80053; 81003; 81015; 83690; 83735; 84100; 84484; 85025; 87086; 87186; 93005; 93010; 94640; 97116-GP; 97161-GP; 99285-25

== ENCOUNTER 2018-03-19 10:53 | Day surgery (SDC) | payer OTHER, BC ==
[2018-03-13 11:06] VITALS: BMI 17.2
--- NOTE | 2018-03-19 13:13 | PN ---
Progress Note (short form) - Note Progress Note: GI procedure Bedside peg tube replacement NO EGD performed Balloon was deflated , a new 18 [employer] peg tube was inserted - external flange at 2.5 cm. No complications REC: axr with gastrograffin tube check prior to use of the peg tube.
[2018-03-19 17:13] VITALS: TEMP 98.7
[2018-03-19 17:16] VITALS: BP 116/67; PULSE 77
== END 2018-03-19 15:00 | disposition home or self-care (01) ==
LOC: FASU-ENDO 10:53
PROVIDERS: ATTEND Internal Medicine Gastroenterology
PROC: 0D2DXUZ Change Feeding Device in Lower Intestinal Tract, External Approach (ICD-10-PCS; principal; 2018-03-19 12:00)
DX: Z43.1 Encounter for attention to gastrostomy (principal); R13.10 Dysphagia, unspecified
CPT/HCPCS: 74241-TC-FY

== ENCOUNTER 2018-05-14 11:55 | Inpatient (IN) | payer OTHER, BC ==
[2018-05-14 13:09] LABS: BASO % 0.2 % (0-2.0); EOS % 0.2 % (0-4.5); HEMOGLOBIN 9.5 GM/dL (11.7-16.9); LYMPH % 6.5 % (8-40); MCHC 35.1 g/dl (32.0-35.9); MEAN PLT VOLUME 6.8 fl (7.5-11.1); MONO % 10.2 % (3.8-10.2); NEUT % 82.9 % (42.8-82.8); PLATELET COUNT 429 K/MM3 (134-434); RBC 2.87 M/mm3 (4.00-5.60); RDW 14.2 % (11.9-15.9); WHITE BLOOD COUNT 11.8 K/mm3 (4.0-10.0)
[2018-05-14 13:30] LABS: ALK PHOS 158 U/L (45-117); ANION GAP 6 MMOL/L (8-16); BILIRUBIN,TOTAL 0.5 mg/dL (0.2-1); BLOOD UREA NITROGEN 22 mg/dL (7-18); CALCIUM 7.7 mg/dL (8.5-10.1); CHLORIDE 98 mmol/L (98-107); CO2 31 mmol/L (21-32); CREATININE 0.5 mg/dL (0.55-1.3); GLUCOSE,RANDOM 114 mg/dL (74-106); POTASSIUM 4.4 mmol/L (3.5-5.1); SGOT/AST 22 U/L (15-37); SGPT/ALT 28 U/L (13-61); SODIUM 135 mmol/L (136-145); TOT PROT 5.8 g/dl (6.4-8.2)
--- NOTE | 2018-05-14 15:31 | PDOC ---
History of Present Illness - General Chief Complaint: Revisit, Lab Variance Stated Complaint: Revisit, Lab Variance Time Seen by Provider: 05/14/18 12:04 History Source: Patient, Prison Records Exam Limitations: No Limitations - History of Present Illness Travel History: No Initial Comments: 05/14/18 15:17 62-year-old male presents to the emergency room for evaluation of right upper lobe lung mass which was detected on chest x-ray since the patient had complaints of a cough. Patient was sent from a nearby long-term for evaluation. Patient denies fever, chills, difficulty breathing, or shortness of breath. Timing/Duration: reports: other Activities at Onset: reports: none Aggravating Factors: improves with: None Alleviating Factors: improves with: None Past History - Travel Traveled outside of the country in the last 30 days: No Close contact w/someone who was outside of country & ill: No - Past Medical History Allergies/Adverse Reactions: Allergies Allergy/AdvReac Type Severity Reaction Status Date / Time iodine Allergy Severe Low Blood Verified 05/14/18 16:32 Pressure kiwi Allergy Intermediate Swelling Verified 05/14/18 16:32 latex Allergy Unknown Swelling Verified 05/14/18 16:32 shellfish derived Allergy Unknown Verified 05/14/18 16:32 ampicillin sodium Allergy Rash Verified 05/14/18 16:32 [From Unasyn] Fish Containing Products Allergy Difficulty Verified 05/14/18 16:32 Breathing Penicillins Allergy Rash Verified 05/14/18 16:32 sulbactam sodium Allergy Rash Verified 05/14/18 16:32 [From Unasyn] Sulfa (Sulfonamide Allergy Hives Verified 05/14/18 16:32 Antibiotics) [Sulfa(Sulfonamide Antibiotics)] Home Medications: Ambulatory Orders Acetaminophen [Tylenol] 325 mg GT QID 09/11/17 Albuterol 0.083% Nebulizer Jojo [Ventolin 0.083% Nebulizer Soln -] 1 neb NEB Q6H 09/11/17 Bisacodyl [Biscolax] 10 mg RC DAILY 09/11/17 Diazepam [Valium] 5 mg GT TID 09/11/17 Docusate Liquid [Colace Liquid -] 300 mg GT TID 09/11/17 Lps 16-100 Liquid 30 ml GT BID 09/11/17 Methenamine/Sodium Salicylate [Cystex Plus Tablet] 1 each GT DAILY 09/11/17 Metoclopramide Oral Soln [Reglan Oral Solution -] 10 mg GT BID 09/11/17 Polyethylene Glycol 3350 [Clearlax] 17 gm GT DAILY 09/11/17 Ranitidine [Zantac -] 150 mg GT BID 09/11/17 Sennosides [Senna] 17.2 mg GT HS 09/11/17 Tramadol HCl 50 mg GT TID 09/11/17 Acetaminophen 650 mg PO QID PRN 05/14/18 Metoclopramide Oral Soln [Reglan Oral Solution -] 10 ml GT TID 05/14/18 Moxifloxacin HCl [Vigamox 0.5% -] 1 drop OD TID 05/14/18 Fred/Polymyx B Sulf/Dexameth [Maxitrol Eye Drops -] 1 drop OD DAILY 05/14/18 Prednisolone 1% Ophthalmic [Pred Forte 1% -] 1 drop OD TID 05/14/18 Anemia: No Asthma: Yes Cancer: No Cardiac Disorders: No CVA: No COPD: Yes CHF: No Dementia: No Diabetes: No GI Disorders: Yes (GERD) Disorders: Yes (NEUROGENIC BLADDER) HTN: Yes Hypercholesterolemia: No Liver Disease: No Psychiatric Problems: Yes (Anxiety,) Seizures: No Thyroid Disease: No - Surgical History Abdominal Surgery: No Appendectomy: No Cardiac Surgery: No Cholecystectomy: No GI Surgery: Yes (supra pubic sx) Lung Surgery: No Neurologic Surgery: Yes (cervical fusion, dystonia) Orthopedic Surgery: Yes - Immunization History Immunization Up to Date: Yes - Suicide/Smoking/Psychosocial Hx Smoking History: Never smoked Have you smoked in the past 12 months: No Number of Cigarettes Smoked Daily: 0 Cigars Per Day: 0 Information on smoking cessation initiated: No Hx Alcohol Use: No Drug/Substance Use Hx: No Substance Use Type: None Hx Substance Use Treatment: No Patient Lives Alone: No Lives with/in: long-term Review of Systems - Review of Systems Able to Perform ROS?: Yes Constitutional: No: Symptoms Reported HEENTM: No: Symptoms Reported Respiratory: No: Symptoms reported Cardiac (ROS): No: Symptoms Reported ABD/GI: No: Symptoms Reported : No: Symptoms Reported Musculoskeletal: No: Symptoms Reported Integumentary: No: Symptoms Reported Neurological: No: Symptoms reported *Physical Exam - Vital Signs Last Vital Signs Temp Pulse Resp BP Pulse Ox 97.5 F L 83 16 82/64 L 93 L 05/14/18 11:55 05/14/18 11:55 05/14/18 11:55 05/14/18 11:55 05/14/18 11:55 - Physical Exam General Appearance: Yes: Appropriately Dressed, Thin. No: Apparent Distress HEENT: positive: Pharynx Normal (dry) Neck: positive: Supple Respiratory/Chest: positive: Lungs Clear, Normal Breath Sounds. negative: Respiratory Distress, Accessory Muscle Use Cardiovascular: positive: Regular Rhythm, Regular Rate. negative: Murmur Gastrointestinal/Abdominal: positive: Soft, Other (gt to left periumbilical). negative: Tenderness Extremity: positive: Normal Capillary Refill. negative: Pedal Edema Integumentary: positive: Dry, Warm Neurologic: positive: Normal Mood/Affect, Motor Strength 5/5 Moderate Sedation - Procedure Monitoring Vital Signs: Procedure Monitoring Vital Signs Temperature 97.5 F L 05/14/18 11:55 Pulse Rate 83 05/14/18 11:55 Respiratory Rate 16 05/14/18 11:55 Blood Pressure 82/64 L 05/14/18 11:55 O2 Sat by Pulse Oximetry (%) 93 L 05/14/18 11:55 ED Treatment Course - LABORATORY CBC & Chemistry Diagram: 05/14/18 12:45 05/14/18 12:59 - ADDITIONAL ORDERS Additional order review: Laboratory Results 05/14/18 12:59 Sodium 135 L Potassium 4.4 Chloride 98 Carbon Dioxide 31 Anion Gap 6 L BUN 22 H Creatinine 0.5 L Creat Clearance w eGFR > 60 Random Glucose 114 H Calcium 7.7 L Total Bilirubin 0.5 AST 22 ALT 28 Alkaline Phosphatase 158 H Total Protein 5.8 L Albumin 2.0 L 05/14/18 12:45 RBC 2.87 L MCV 94.0 MCHC 35.1 RDW 14.2 MPV 6.8 L D Neutrophils % 82.9 H Lymphocytes % 6.5 L D Monocytes % 10.2 Eosinophils % 0.2 D Basophils % 0.2 - RADIOLOGY Radiology Studies Ordered: Category Date Time Status CHEST CT WITH CONTRAST [CT] Stat CT Scan 05/14/18 12:44 Taken Medical Decision Making - Medical Decision Making 05/14/18 15:21 Complaint: Questionable right lung mass seen on chest x-ray from long-term report. Patient has no complaints. Exam: Vital signs stable patient appears dry Plan: IV inserted, CBC, comp, CT of the chest with contrast ordered, 02 2lnc ordered 05/14/18 17:22 Selected Entries 05/14/18 11:55 Blood Pressure 82/64 L O2 Sat by Pulse 93 L Oximetry (%) Laboratory Tests 05/14/18 05/14/18 12:45 12:59 WBC 11.8 H Hgb 9.5 L Hct 27.0 L D MPV 6.8 L D Absolute Neuts (auto) 9.8 H Neutrophils % 82.9 H Sodium 135 L Potassium 4.4 Carbon Dioxide 31 Anion Gap 6 L BUN 22 H Creatinine 0.5 L Creat Clearance w eGFR > 60 Random Glucose 114 H Calcium 7.7 L Total Bilirubin 0.5 AST 22 ALT 28 Alkaline Phosphatase 158 H Total Protein 5.8 L Albumin 2.0 L 05/14/18 17:23 CT the chest shows moderately severe COPD with large right upper lobe mass/ fluid collection that has developed since 12/24/2017. Increased cavitation of the small irregular lingula mass and continual follow-up is recommended. 05/14/18 17:24 Case discussed with hospitalist and will admit to [facility] observation status *DC/Admit/Observation/Transfer Diagnosis at time of Disposition: Lung mass - Discharge Dispostion Decision to Admit order: Yes - Referrals Referrals: Abad Tanner MD [Primary Care Provider] - - Patient Instructions - Post Discharge Activity
[2018-05-14] MEDS ORDERED: ACETAMINOPHEN 325 MG TABLET (FP) PO PRN (16:42)
--- NOTE | 2018-05-14 16:49 | HP ---
Admitting History and Physical - Primary Care Physician PCP: Abad Tanner - Admission Chief Complaint: I was sent in for tests History of Present Illness: Mr Nash is a very pleasant 62 year old male who presents from [facility] secondary to an abnormal chest x-ray. He says that he is feeling normal and otherwise without complaint. He says last week he had a couple episodes of feeling woozy while standing. He did not lose consciousness with this. He also complains of coughing that is productive of white sputum but this is chronic. He denies fevers, chills, chest pain, shortness of breath, nausea, vomiting, diarrhea, or swelling. He has chronic constipation and he is on stool softeners. He is not having pain with his becerra or PEG tube. 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: Other (Muscular dystonia since age 21 year) Cardiovascular: Yes: HTN Pulmonary: Yes: Asthma, Pneumonia, Sleep Apnea, Other (Cavitary lesion in lung ruled out for TB) Gastrointestinal: Yes: Constipation, GERD, Other (dysphagia) Hepatobiliary: Yes: Other (as noted in medical record.) Renal/: Yes: BPH (s/p thermal prostate procedure), Neurogenic Bladder ( suprapubic tube ), UTI Heme/Onc: Yes: Other (as noted in medical record) Infectious Disease: Yes: Other (influenza b august 2013) Psych: Yes: Depression Musculoskeletal: Yes: Other (Muscular dystonia) - Past Surgical History Past Surgical History: Yes: Laminectomy (cervical laminectomy with fusion) - Smoking History Smoking history: Never smoked Have you smoked in the past 12 months: No Aproximately how many cigarettes per day: 0 - Alcohol/Substance Use Hx Alcohol Use: No History of Substance Use: reports: None Date of Last Use: 05/18/78 (estimated) - Social History Usual Living Arrangement: Yes: Senior Care ADL: Support Services 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 History of Recent Travel: No Home Medications - Allergies Allergies/Adverse Reactions: Allergies Allergy/AdvReac Type Severity Reaction Status Date / Time iodine Allergy Severe Low Blood Verified 05/14/18 16:32 Pressure kiwi Allergy Intermediate Swelling Verified 05/14/18 16:32 latex Allergy Unknown Swelling Verified 05/14/18 16:32 shellfish derived Allergy Unknown Verified 05/14/18 16:32 ampicillin sodium Allergy Rash Verified 05/14/18 16:32 [From Unasyn] Fish Containing Products Allergy Difficulty Verified 05/14/18 16:32 Breathing Penicillins Allergy Rash Verified 05/14/18 16:32 sulbactam sodium Allergy Rash Verified 05/14/18 16:32 [From Unasyn] Sulfa (Sulfonamide Allergy Hives Verified 05/14/18 16:32 Antibiotics) [Sulfa(Sulfonamide Antibiotics)] - Home Medications Home Medications: Ambulatory Orders Acetaminophen [Tylenol] 325 mg GT QID 09/11/17 Albuterol 0.083% Nebulizer Jojo [Ventolin 0.083% Nebulizer Soln -] 1 neb NEB Q6H 09/11/17 Bisacodyl [Biscolax] 10 mg RC DAILY 09/11/17 Diazepam [Valium] 5 mg GT TID 09/11/17 Docusate Liquid [Colace Liquid -] 300 mg GT TID 09/11/17 Lps 16-100 Liquid 30 ml GT BID 09/11/17 Methenamine/Sodium Salicylate [Cystex Plus Tablet] 1 each GT DAILY 09/11/17 Metoclopramide Oral Soln [Reglan Oral Solution -] 10 mg GT BID 09/11/17 Polyethylene Glycol 3350 [Clearlax] 17 gm GT DAILY 09/11/17 Ranitidine [Zantac -] 150 mg GT BID 09/11/17 Sennosides [Senna] 17.2 mg GT HS 09/11/17 Tramadol HCl 50 mg GT TID 09/11/17 Acetaminophen 650 mg PO QID PRN 05/14/18 Metoclopramide Oral Soln [Reglan Oral Solution -] 10 ml GT TID 05/14/18 Moxifloxacin HCl [Vigamox 0.5% -] 1 drop OD TID 05/14/18 Fred/Polymyx B Sulf/Dexameth [Maxitrol Eye Drops -] 1 drop OD DAILY 05/14/18 Prednisolone 1% Ophthalmic [Pred Forte 1% -] 1 drop OD TID 05/14/18 Family Disease History - Family Disease History Family Disease History: Diabetes: Father (mild cognitive decline), Heart Disease : Father, CA: Mother (, colon cancer), Other: Father Review of Systems Findings/Remarks: Full review of systems obtained, as per HPI and otherwise negative Physical Examination Vital Signs: Vital Signs Temperature 36.4 C L 05/14/18 11:55 Pulse Rate 83 05/14/18 11:55 Respiratory Rate 16 05/14/18 11:55 Blood Pressure 82/64 L 05/14/18 11:55 O2 Sat by Pulse Oximetry (%) 93 L 05/14/18 11:55 Constitutional: Yes: No Distress, Calm, Thin Eyes: Yes: Conjunctiva Clear, EOM Intact, PERRL HENT: Yes: Atraumatic, Normocephalic Cardiovascular: Yes: Regular Rate and Rhythm. No: Gallop, Murmur, Rub Respiratory: Yes: Regular, Cough, Rhonchi (bibasilar). No: CTA Bilaterally, On Nasal O2, Rales, Wheezes Gastrointestinal: Yes: Normal Bowel Sounds, Soft. No: Distention, Tenderness Renal/: Yes: Becerra Present Extremities: Yes: WNL Edema: No Labs: CBC, BMP 05/14/18 12:45 05/14/18 12:59 Imaging - Results Cat Scan: Report Reviewed, Image Reviewed Problem List - Problems (1) Cavitary lesion of lung Assessment/Plan: -noted to have cavitary lesion of L lung -new since CT scan performed in 12/2017 -admit for observation -consult pulmonary -consult ID -patient does not appear septic, hold on antibiotics until seen by ID Code(s): J98.4 - OTHER DISORDERS OF LUNG (2) COPD (chronic obstructive pulmonary disease) Assessment/Plan: -not in exacerbation -continue home regimen Code(s): J44.9 - CHRONIC OBSTRUCTIVE PULMONARY DISEASE, UNSPECIFIED Qualifiers: COPD type: COPD with acute exacerbation Qualified Code(s): J44.1 - Chronic obstructive pulmonary disease with (acute) exacerbation (3) Constipation Assessment/Plan: -continue stool softeners Code(s): K59.00 - CONSTIPATION, UNSPECIFIED Qualifiers: Constipation type: unspecified constipation type Qualified Code(s): K59.00 - Constipation, unspecified (4) Dysphagia Assessment/Plan: -PEG tube in place -continue TF -patient on isosource 1.5 at [facility], not on formula -will place on jevity -await dietary recommendations Code(s): R13.10 - DYSPHAGIA, UNSPECIFIED (5) GERD (gastroesophageal reflux disease) Assessment/Plan: -continue zantac Code(s): K21.9 - GASTRO-ESOPHAGEAL REFLUX DISEASE WITHOUT ESOPHAGITIS (6) Protein-calorie malnutrition, severe Assessment/Plan: -tube feeds as above Code(s): E43 - UNSPECIFIED SEVERE PROTEIN-CALORIE MALNUTRITION
[2018-05-14] MEDS ORDERED: [UNRECOGNIZED DRUG - OTHER] GT SCH (22:00)
[2018-05-14] MEDS ORDERED: DOCUSATE NA 100 MG/10 ML UNIT-DOSE CUPS GT SCH (22:00)
[2018-05-14] MEDS: traMADol HCL 50 MG TABLET NR SCH (22:29)
[2018-05-14] MEDS: METOCLOPRAMIDE HCL 5 MG/5 ML UNIT DOSE CUP GT SCH (22:30)
[2018-05-14] MEDS: RANITIDINE HCL 150 MG TABLET (FP) NR SCH (22:30)
[2018-05-14] MEDS: diazePAM 5 MG TABLET GT SCH (22:30)
[2018-05-14] MEDS: SENNOSIDES 8.6MG TABLET (FP) PO SCH (22:31)
[2018-05-15] MEDS: ALBUTEROL SO4 0.083% IH SOL 2.5 MG/3 ML VIAL.NEB. NEB SCH ×3 (05:52→11:42)
[2018-05-15] MEDS: diazePAM 5 MG TABLET GT SCH ×3 (06:42→22:10)
[2018-05-15] MEDS: traMADol HCL 50 MG TABLET NR SCH (06:42)
[2018-05-15 07:17] LABS: BASO % 0.1 % (0-2.0); EOS % 0.2 % (0-4.5); HEMATOCRIT 32.6 % (35.4-49); HEMOGLOBIN 10.4 GM/dL (11.7-16.9); LYMPH % 8.1 % (8-40); MCH 30.7 pg (25.7-33.7); MCHC 31.9 g/dl (32.0-35.9); MEAN CELL VOLUME 96.2 fl (80-96); MEAN PLT VOLUME 6.6 fl (7.5-11.1); MONO % 10.2 % (3.8-10.2); NEUT % 81.4 % (42.8-82.8); PLATELET COUNT 525 K/MM3 (134-434); RBC 3.39 M/mm3 (4.00-5.60); RDW 14.4 % (11.9-15.9); WHITE BLOOD COUNT 12.9 K/mm3 (4.0-10.0)
[2018-05-15 07:29] LABS: ANION GAP 9 MMOL/L (8-16); BLOOD UREA NITROGEN 13 mg/dL (7-18); CALCIUM 7.8 mg/dL (8.5-10.1); CHLORIDE 98 mmol/L (98-107); CO2 29 mmol/L (21-32); CREATININE 0.5 mg/dL (0.55-1.3); GLUCOSE,RANDOM 89 mg/dL (74-106); MAGNESIUM 2.5 mg/dL (1.8-2.4); PHOSPHOROUS 3.7 mg/dL (2.5-4.9); POTASSIUM 3.8 mmol/L (3.5-5.1); SODIUM 136 mmol/L (136-145)
[2018-05-15] MEDS ORDERED: [UNRECOGNIZED DRUG - OTHER] GT SCH (10:00)
[2018-05-15] MEDS ORDERED: METHENAMINE GT SCH (10:00)
[2018-05-15] MEDS ORDERED: SODIUM SALICYLATE GT SCH (10:00)
--- NOTE | 2018-05-15 10:44 | CON.ID ---
Consult Consult Specialty:: infectious diseases Referred by:: dr robins Reason for Consultation:: lung collection/abscess - History of Present Illness History of Present Illness: 62 year old male who presents from [facility] secondary to an abnormal chest x-ray. He says that he is feeling normal and otherwise without complaint. He says last week he had a couple episodes of feeling woozy while standing. He did not lose consciousness with this. He also complains of coughing that is productive of white sputum but this is chronic. He denies fevers, chills, chest pain, shortness of breath, nausea, vomiting, diarrhea, or swelling. He has chronic constipation and he is on stool softeners. He is not having pain with his becerra or PEG tube. 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) Cardio/Vascular: Yes: HTN Pulmonary: Yes: Asthma, Pneumonia, Sleep Apnea, Other (Cavitary lesion in lung ruled out for TB) Gastrointestinal: Yes: Constipation, GERD, Other (dysphagia) Hepatobiliary: Yes: Other (as noted in medical record.) Renal/: Yes: BPH (s/p thermal prostate procedure), Neurogenic Bladder ( suprapubic tube ), UTI Infectious Disease: Yes: Other (influenza b august 2013) Psych: Yes: Depression Musculoskeletal: Yes: Other (Muscular dystonia) - Past Surgical History Past Surgical History: Yes: Laminectomy (cervical laminectomy with fusion) - Alcohol/Substance Use Hx Alcohol Use: No History of Substance Use: reports: None Date of Last Use: 05/18/78 (estimated) - Smoking History Smoking history: Never smoked Have you smoked in the past 12 months: No Aproximately how many cigarettes per day: 0 - Social History Usual Living Arrangement: Alone ADL: Support Services 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 History of Recent Travel: No Home Medications - Allergies Allergies/Adverse Reactions: Allergies Allergy/AdvReac Type Severity Reaction Status Date / Time iodine Allergy Severe Low Blood Verified 05/14/18 16:32 Pressure kiwi Allergy Intermediate Swelling Verified 05/14/18 16:32 latex Allergy Unknown Swelling Verified 05/14/18 16:32 shellfish derived Allergy Unknown Verified 05/14/18 16:32 ampicillin sodium Allergy Rash Verified 05/14/18 16:32 [From Unasyn] Fish Containing Products Allergy Difficulty Verified 05/14/18 16:32 Breathing Penicillins Allergy Rash Verified 05/14/18 16:32 sulbactam sodium Allergy Rash Verified 05/14/18 16:32 [From Unasyn] Sulfa (Sulfonamide Allergy Hives Verified 05/14/18 16:32 Antibiotics) [Sulfa(Sulfonamide Antibiotics)] - Home Medications Home Medications: Ambulatory Orders Lps 16-100 Liquid 30 ml GT BID 09/11/17 RX: Acetaminophen [Tylenol] 325 mg GT QID 09/11/17 RX: Albuterol 0.083% Nebulizer Jojo [Ventolin 0.083% Nebulizer Soln -] 1 neb NEB Q6H 09/11/17 RX: Bisacodyl [Biscolax] 10 mg RC DAILY 09/11/17 RX: Diazepam [Valium] 5 mg GT TID 09/11/17 RX: Docusate Liquid [Colace Liquid -] 300 mg GT TID 09/11/17 RX: Methenamine/Sodium Salicylate [Cystex Plus Tablet] 1 each GT DAILY 09/11/17 RX: Metoclopramide Oral Soln [Reglan Oral Solution -] 10 mg GT BID 09/11/17 RX: Polyethylene Glycol 3350 [Clearlax] 17 gm GT DAILY 09/11/17 RX: Ranitidine [Zantac -] 150 mg GT BID 09/11/17 RX: Sennosides [Senna] 17.2 mg GT HS 09/11/17 RX: Tramadol HCl 50 mg GT TID 09/11/17 Moxifloxacin HCl [Vigamox 0.5% -] 1 drop OD TID 05/14/18 Fred/Polymyx B Sulf/Dexameth [Maxitrol Eye Drops -] 1 drop OD DAILY 05/14/18 Prednisolone 1% Ophthalmic [Pred Forte 1% -] 1 drop OD TID 05/14/18 RX: Acetaminophen 650 mg PO QID PRN 05/14/18 RX: Metoclopramide Oral Soln [Reglan Oral Solution -] 10 ml GT TID 05/14/18 Family Disease History - Family Disease History Family Disease History: Diabetes: Father (mild cognitive decline), Heart Disease : Father, CA: Mother (, colon cancer), Other: Father Review of Systems - Review of Systems Constitutional: reports: No Symptoms Eyes: reports: No Symptoms HENT: reports: No Symptoms Neck: reports: No Symptoms Cardiovascular: reports: No Symptoms Respiratory: reports: Cough, Other (sputum production) Gastrointestinal: reports: No Symptoms Genitourinary: reports: No Symptoms Musculoskeletal: reports: No Symptoms Integumentary: reports: No Symptoms Neurological: reports: No Symptoms Endocrine: reports: No Symptoms Hematology/Lymphatic: reports: No Symptoms Psychiatric: reports: No Symptoms Physical Exam Vital Signs: Vital Signs Temperature 98.3 F 05/15/18 04:00 Pulse Rate 89 05/15/18 04:00 Respiratory Rate 20 05/15/18 04:00 Blood Pressure 116/59 L 05/15/18 04:00 O2 Sat by Pulse Oximetry (%) 96 05/14/18 16:56 Constitutional: Yes: No Distress, Calm, Other (bed bound) Eyes: Yes: Conjunctiva Clear HENT: Yes: Atraumatic Neck: Yes: Supple, Trachea Midline Cardiovascular: Yes: Regular Rate and Rhythm Respiratory: Yes: Regular, CTA Bilaterally Gastrointestinal: Yes: Normal Bowel Sounds, Soft Musculoskeletal: Yes: WNL Extremities: Yes: Other (deformities) Neurological: Yes: Alert, Oriented Psychiatric: Yes: Alert, Oriented Labs: CBC, BMP 05/15/18 06:15 05/15/18 06:15 Imaging - Results Cat Scan: Report Reviewed, Image Reviewed Assessment/Plan Problem List - Problems (1) Cavitary lesion of lung Code(s): J98.4 - OTHER DISORDERS OF LUNG (2) COPD (chronic obstructive pulmonary disease) Code(s): J44.9 - CHRONIC OBSTRUCTIVE PULMONARY DISEASE, UNSPECIFIED Qualifiers: COPD type: COPD with acute exacerbation Qualified Code(s): J44.1 - Chronic obstructive pulmonary disease with (acute) exacerbation (3) Constipation Code(s): K59.00 - CONSTIPATION, UNSPECIFIED Qualifiers: Constipation type: unspecified constipation type Qualified Code(s): K59.00 - Constipation, unspecified (4) Dysphagia Code(s): R13.10 - DYSPHAGIA, UNSPECIFIED (5) GERD (gastroesophageal reflux disease) Code(s): K21.9 - GASTRO-ESOPHAGEAL REFLUX DISEASE WITHOUT ESOPHAGITIS (6) Protein-calorie malnutrition, severe Code(s): E43 - UNSPECIFIED SEVERE PROTEIN-CALORIE MALNUTRITION plan will start patient on vanco and meropenam patients lesion needs to be aspirated r/o abscess vs necrotizing mass rest as per the team
[2018-05-15] MEDS ORDERED: MEROPENEM 1 GM in DEXTROSE 5%-WATER 100 ML IVPB ONE (12:00)
[2018-05-15] MEDS ORDERED: IPRATROPIUM BR 0.02% 0.5 MG/2.5 ML VIAL.NEB. NEB PRN (12:04)
[2018-05-15] MEDS ORDERED: METOPROLOL TARTRATE 5 MG/5 ML VIAL IVPUSH PRN (12:06)
[2018-05-15] MEDS ORDERED: SODIUM CHLORIDE 1,000 ML IV STA (12:09)
--- NOTE | 2018-05-15 12:11 | EKG ---
Test Reason : Blood Pressure : / mmHG Vent. Rate : 149 BPM Atrial Rate : 149 BPM P-R Int : 130 ms QRS Dur : 106 ms QT Int : 334 ms P-R-T Axes : 069 -37 072 degrees QTc Int : 526 ms POOR DATA QUALITY, INTERPRETATION MAY BE ADVERSELY AFFECTED SINUS TACHYCARDIA WITH OCCASIONAL PREMATURE VENTRICULAR COMPLEXES LEFT AXIS DEVIATION INCOMPLETE RIGHT BUNDLE BRANCH BLOCK CANNOT RULE OUT INFERIOR INFARCT , AGE UNDETERMINED ABNORMAL ECG WHEN COMPARED WITH ECG OF 14-MAY-2018 12:04, PREMATURE VENTRICULAR COMPLEXES ARE NOW PRESENT VENT. RATE HAS INCREASED BY 68 BPM INCOMPLETE RIGHT BUNDLE BRANCH BLOCK IS NOW PRESENT Confirmed by SHILPI BISWAS MD ([id number]) on 05/15/2018 12:11:01 PM Referred By: Confirmed By:SHILPI BISWAS MD
[2018-05-15] MEDS: VANCOMYCIN 1,250 MG in DEXTROSE 5%-WATER - 250 ML IVPB SCH (12:17)
[2018-05-15] MEDS: MEROPENEM 1 GM in DEXTROSE 5%-WATER 100 ML IVPB SCH ×2 (12:17→22:06)
[2018-05-15] MEDS: METOCLOPRAMIDE HCL 5 MG/5 ML UNIT DOSE CUP GT SCH ×2 (12:18→23:35)
[2018-05-15] MEDS: RANITIDINE HCL 150 MG TABLET (FP) NR SCH ×2 (12:18→22:10)
[2018-05-15] MEDS: POLYETHYLENE GLYCOL 3350 119 GM BTL GT SCH (12:19)
[2018-05-15] MEDS: BISACODYL 10 MG SUPP.RECT RC SCH (12:19)
[2018-05-15] MEDS: DOCUSATE NA 100 MG/10 ML UNIT-DOSE CUPS GT SCH (12:19)
[2018-05-15] MEDS: ACETAMINOPHEN 325 MG TABLET (FP) NR PRN ×2 (12:43→22:10)
[2018-05-15] MEDS: SODIUM CHLORIDE 1,000 ML IV SCH ×3 (12:44→18:36)
[2018-05-15 12:45] LABS: BASO % 0.1 % (0-2.0); HEMATOCRIT 33.5 % (35.4-49); HEMOGLOBIN 10.7 GM/dL (11.7-16.9); LYMPH % 1.2 % (8-40); MCH 30.7 pg (25.7-33.7); MCHC 31.8 g/dl (32.0-35.9); MEAN CELL VOLUME 96.4 fl (80-96); MEAN PLT VOLUME 6.9 fl (7.5-11.1); NEUT % 93.7 % (42.8-82.8); PLATELET COUNT 649 K/MM3 (134-434); RBC 3.48 M/mm3 (4.00-5.60); RDW 14.7 % (11.9-15.9); WHITE BLOOD COUNT 24.7 K/mm3 (4.0-10.0)
[2018-05-15 13:05] LABS: ALBUMIN 2.2 g/dl (3.4-5.0); ALK PHOS 185 U/L (45-117); ANION GAP 10 MMOL/L (8-16); BILIRUBIN,TOTAL 0.8 mg/dL (0.2-1); BLOOD UREA NITROGEN 16 mg/dL (7-18); CALCIUM 7.9 mg/dL (8.5-10.1); CHLORIDE 100 mmol/L (98-107); CO2 27 mmol/L (21-32); CREATININE 0.7 mg/dL (0.55-1.3); GLUCOSE,RANDOM 100 mg/dL (74-106); MAGNESIUM 2.2 mg/dL (1.8-2.4); PHOSPHOROUS 3.8 mg/dL (2.5-4.9); POTASSIUM 4.5 mmol/L (3.5-5.1); SGOT/AST 16 U/L (15-37); SGPT/ALT 24 U/L (13-61); SODIUM 137 mmol/L (136-145); TOT PROT 6.6 g/dl (6.4-8.2)
--- NOTE | 2018-05-15 14:26 | PN ---
Physical Exam: SUBJECTIVE: Rapid response was called this morning due to hypoxia, hypotension and tachycardia. Upon assessment, patient was lying in bed, in respiratory distress , BP was around 90/60 mmHg, HR 140 bpm, Saturation was in 60's which improved after Nasal oxygen. Stat EKG was done which showed Sinus tachycardia, prolonged Qtc, no significant ST or T wave changes. Stat labs were ordered, IV Meropenam was given, ID consult placed, transferred to Tele. Patient seen and examined at bed side in tele. BP improving. OBJECTIVE: Vital Signs Period Temp Pulse Resp BP Sys/Marroquin Pulse Ox Last 24 Hr 98.3 F-98.3 F 83-89 20-20 94-116/59-61 96 GENERAL: Middle aged male, cachectic, lying in bed, in respiratory distress, patient is awake, alert, and fully oriented. HEAD: Normal with no signs of trauma. EYES: No Pallor or icterus. ENT: Ears normal, dry mucous membranes. NECK: Supple. LUNGS: Coarse breath sounds +. HEART: Tachycardic, Regular rate and rhythm, S1, S2 without murmur. ABDOMEN: Suprapubic tube in place, PEG, Soft, nontender, no organomegaly. EXTREMITIES: 2+ pulses, warm, well-perfused, no edema. NEUROLOGICAL: No facial droop. Normal speech, gait not observed. PSYCH: Normal mood, normal affect. SKIN: Warm, dry, normal turgor, no rashes or lesions noted Laboratory Results - last 24 hr 05/15/18 05/15/18 05/15/18 06:15 06:15 12:05 WBC 12.9 H 24.7 H RBC 3.39 L 3.48 L Hgb 10.4 L 10.7 L Hct 32.6 L D 33.5 L MCV 96.2 H 96.4 H MCH 30.7 30.7 MCHC 31.9 L 31.8 L RDW 14.4 14.7 Plt Count 525 H D 649 H D MPV 6.6 L 6.9 L Absolute Neuts (auto) 10.5 H 23.1 H Neutrophils % 81.4 93.7 H Lymphocytes % 8.1 D 1.2 L D Monocytes % 10.2 5.0 Eosinophils % 0.2 0.0 D Basophils % 0.1 0.1 Nucleated RBC % 0 0 Sodium 136 Potassium 3.8 Chloride 98 Carbon Dioxide 29 Anion Gap 9 BUN 13 Creatinine 0.5 L Creat Clearance w eGFR > 60 Random Glucose 89 Lactic Acid Calcium 7.8 L Phosphorus 3.7 Magnesium 2.5 H Total Bilirubin AST ALT Alkaline Phosphatase Creatine Kinase Troponin I Total Protein Albumin 05/15/18 05/15/18 12:05 12:05 WBC RBC Hgb Hct MCV MCH MCHC RDW Plt Count MPV Absolute Neuts (auto) Neutrophils % Lymphocytes % Monocytes % Eosinophils % Basophils % Nucleated RBC % Sodium 137 Potassium 4.5 Chloride 100 Carbon Dioxide 27 Anion Gap 10 BUN 16 Creatinine 0.7 Creat Clearance w eGFR > 60 Random Glucose 100 Lactic Acid 2.9 H* Calcium 7.9 L Phosphorus 3.8 Magnesium 2.2 Total Bilirubin 0.8 AST 16 ALT 24 Alkaline Phosphatase 185 H Creatine Kinase 29 Troponin I < 0.02 Total Protein 6.6 Albumin 2.2 L Active Medications Generic Name Dose Route Start Last Admin Trade Name Freq PRN Reason Stop Dose Admin Acetaminophen 650 mg 05/14/18 17:04 05/15/18 12:43 Tylenol - NR 650 mg Q4H PRN Administration PAIN 1-3 Bisacodyl 10 mg 05/15/18 10:00 05/15/18 12:19 Dulcolax Suppository - RC Not Given DAILY [facility] Budesonide/Formoterol Fumarate 2 puff 05/15/18 22:00 Symbicort 80/4.5mcg - IH BID ESVIN Diazepam 5 mg 05/14/18 22:00 05/15/18 06:42 Valium - GT 5 mg TID ESVIN Administration Docusate Sodium 300 mg 05/15/18 10:00 05/15/18 12:19 Colace Liquid - GT Not Given DAILY [facility] Vancomycin HCl 1,250 mg/ 250 mls @ 250 mls/2 hr 05/15/18 10:45 05/15/18 12:17 Dextrose IVPB 250 mls/2 hr Q24H ESVIN Administration Protocol Meropenem 1 gm/ Dextrose 100 mls @ 200 mls/hr 05/15/18 11:00 05/15/18 12:17 IVPB 200 mls/hr Q8H-IV ESVIN Administration Sodium Chloride 1,000 mls @ 75 mls/hr 05/15/18 12:15 05/15/18 12:44 Normal Saline - IV 75 mls/hr ASDIR ESVIN Administration Ipratropium [place] 1 amp 05/15/18 12:04 Atrovent 0.02% Nebulizer - NEB 05/22/18 12:05 Q6H PRN DYSPEPSIA Metoclopramide HCl 10 mg 05/14/18 22:00 05/15/18 12:18 Reglan Oral Solution - GT 10 mg BID ESVIN Administration Metoprolol Tartrate 5 mg 05/15/18 12:06 Lopressor Injection - IVPUSH Q4H PRN HYPERTENSION Non-Formulary Medication 1 each 05/15/18 10:00 Methenamine/Sodium Salicylate [Cystex Plus Tablet] GT DAILY E[facility] Oxycodone HCl 5 mg 05/15/18 11:09 Roxicodone - PEG Q4H PRN PAIN LEVEL 6-10 Polyethylene Glycol 17 gm 05/15/18 10:00 05/15/18 12:19 Miralax (For Daily Use) - GT 17 grams DAILY ESVIN Administration Ranitidine HCl 150 mg 05/14/18 22:00 05/15/18 12:18 Zantac - NR 150 mg BID ESVIN Administration Senna 2 tab 05/14/18 22:00 05/14/18 22:31 Senna - PO Not Given HS ESVIN 05/14/[address] with contrast: The lung wiggins are hyperaerated with increased interstitial markings consistent with moderately severe COPD. There is a large cavitary mass/fluid collection within the periphery of the right upper lobe. The mass measures approximately 7.8 x 6.1 x 5.8 cm. It could represent an abscess. The mass was not present on a prior study of 12/24/2017. An additional, ill-defined cavitary mass is seen within the lingula segment of the left upper lobe anteriorly. This mass measures approximately 1.3 cm and has developed central cavitation since the previous study. No additional pulmonary masses or areas of acute consolidation or pleural effusions are identified bilaterally. There are 2 bulla within the left lower lobe. Examination of the mediastinum demonstrates no evidence of mediastinal masses, fluid collections or lymphadenopathy. The heart is not enlarged. Pericardial fluid is present. Limited evaluation the upper abdomen demonstrates a PEG tube within the stomach. There is no evidence of acute pathology. There is no evidence of acute bony abnormalities. IMPRESSION: 1. Moderately severe COPD. 2. Large right upper lobe mass/fluid collection that has developed since 12/24/2017. 3. Increased cavitation of small irregular lingula mass clinical correlation and continued follow- up recommended ASSESSMENT/PLAN: Patient is a 61-year old male, with history of bronchiectasis, neurogenic bladder with a suprapubic tube, asthma,COPD, GERD, HTN, carpal tunnel, hemoptysis, dysphagsia requiring a peg tub for feed. dystonia for 32 yrs, bronchiectasis was sent from [facility] for evaluation of abnormal CXR. # Sepsis from acute hypoxic respiratory failure likely secondary to aspiration- r/o aspiration pneumonia Rapid response was called this morning, found to be septic-Temp 101, tachycardic, hypotensive Repeat labs today showed increased leukocytosis 12.9---> 24, lactic acid of 2.9, will trend IV NS started and continued @ 75mls/hr IV Meropenem 1gm Q8H Day 1 IV Vancomycin 1250 mg daily Blood cultures/urine cultures sent Will send Flu, urine for legionella Continue Chest PT, Ipratropium nebs, Symbicort. Albuterol avoided due to tachycardia # Sinus tachycardia Likely from sepsis, however would like to r/o other causes Should improve with sepsis treatment Stat EKG showed Sinus tachy ECHO ordered Cardio consult requested # Lung mass necrotizing mass vs abscess vs malignancy Admitted yesterday for evaluation of abnormal CXR done in [facility]. CT chest done report as mentioned above. As compared to CT done in 09/11/17, the right upper lobe mass is new. Planning for an aspiration of the fluid collection, will discuss with Pulmonary and IR. # Dysphagia PEG tube in place. Hold feeds for now due to aspiration risk. # Normocytic anemia H/H Stable since last admission. Will monitor # Constipation Continue Bowel regimen. # FEN IV NS @ 75 mls/hr Electrolytes to be repeated in AM NPO for now, no feeding from the PEG tube, aspiration precautions. # Prophylaxis For DVT: SCDs For GI: On Ranitidine # Code Status: DNR/DNR # Dispo: Duration of stay unknown. Admit to Tele. Plan of care explained to the patient. He verbalized understanding. Case discussed with Dr. Dos Santos.
[2018-05-15 14:58] LABS: ANISOCYTOSIS 1+; MACROCYTOSIS 0; PLATELET ESTIMATE INCREASED
--- NOTE | 2018-05-15 15:51 | PN ---
Teaching Attending Note Name of Resident: Yarely Falcon ATTENDING PHYSICIAN STATEMENT I saw and evaluated the patient. I reviewed the resident's note and discussed the case with the resident. I agree with the resident's findings and plan as documented. SUBJECTIVE: Mr Nash complains of "not feeling well" but cannot give further subjective OBJECTIVE: Last Vital Signs Temp Pulse Resp BP Pulse Ox 38.5 C H 132 H 24 H 82/54 L 96 05/15/18 14:00 05/15/18 14:00 05/15/18 12:00 05/15/18 14:00 05/15/18 09:00 Gen: acute distress Pulm: significant ronchi in all lung wiggins, wet sounding cough CV: tachycardic w/o m/r/g Abd: +bs, s/nt/nd Ext: no c/c/e CBC, BMP 05/15/18 12:05 05/15/18 12:05 42 minutes spent in critical care time with this patient poor prognosis Problem List - Problems (1) Lung abscess Assessment/Plan: -case d/w ID -considering sudden onset of sepsis, most likely abscess -start vancomycin and merrem -pulmonary to see and evaluate -? if amenable to drainage or if would be appropriate for CT surgery -patient currently declining surgery, will continue discussion Code(s): J85.2 - ABSCESS OF LUNG WITHOUT PNEUMONIA Qualifiers: Pulmonary abscess pneumonia presence: without pneumonia Laterality: left Lung location: upper lobe of lung Qualified Code(s): J85.2 - Abscess of lung without pneumonia (2) Severe sepsis Assessment/Plan: -as seen by hypotension (fluid responsive), tachycardia, leukocytosis, and lactic acidosis -hydration with IVF -antibiotics as above -may need surgical intervention if patient agreeable Code(s): A41.9 - SEPSIS, UNSPECIFIED ORGANISM; R65.20 - SEVERE SEPSIS WITHOUT SEPTIC SHOCK (3) COPD (chronic obstructive pulmonary disease) Assessment/Plan: -possible exacerbation -will start steroids -pulmonary consult -hold on duonebs secondary to tachycardia -start symbicort -prn atrovent -oxygen support Code(s): J44.9 - CHRONIC OBSTRUCTIVE PULMONARY DISEASE, UNSPECIFIED Qualifiers: COPD type: COPD with acute exacerbation Qualified Code(s): J44.1 - Chronic obstructive pulmonary disease with (acute) exacerbation (4) Constipation Assessment/Plan: -continue stool softeners Code(s): K59.00 - CONSTIPATION, UNSPECIFIED Qualifiers: Constipation type: unspecified constipation type Qualified Code(s): K59.00 - Constipation, unspecified (5) Dysphagia Assessment/Plan: -PEG tube in place -will hold TF secondary to possible aspiration Code(s): R13.10 - DYSPHAGIA, UNSPECIFIED (6) GERD (gastroesophageal reflux disease) Assessment/Plan: -continue zantac Code(s): K21.9 - GASTRO-ESOPHAGEAL REFLUX DISEASE WITHOUT ESOPHAGITIS (7) Protein-calorie malnutrition, severe Assessment/Plan: -holding TF at this time Code(s): E43 - UNSPECIFIED SEVERE PROTEIN-CALORIE MALNUTRITION
--- NOTE | 2018-05-15 16:48 | ECHO ---
Name: YAHAIRA THOMPSON Exam:Adult Echocardiogram Study Date: 05/15/2018 03:32 PM Age: 62 yrs Reason For Study: ben jules, ef, r/o wall motion abn Height: 62 in Weight: 93 lb BSA: 1.4 m2 Doppler Measurements & Calculations MV E max tab: 53.3 cm/sec Ao V2 max: 105.9 cm/sec MV A max tab: 75.0 cm/sec Ao max P.5 mmHg MV E/A: 0.71 MV dec time: 0.10 sec LV V1 max P.8 mmHg MR max tab: 440.1 cm/sec LV V1 max: 67.1 cm/sec MR max P.5 mmHg TR max tab: 266.8 cm/sec Med Peak E' Tab: 6.7 cm/sec TR max P.6 mmHg Med E/e': 7.9 Lat Peak E' Tab: 8.1 cm/sec Lat E/e': 6.6 Procedure A complete two-dimensional transthoracic echocardiogram was performed (2D, M-mode, Doppler and color flow Doppler). The study was technically limited with all images being suboptimal in quality. Left Ventricle The left ventricular size, thickness and function are normal. Ejection Fraction = 60-65%. No regional wall motion abnormalities noted. Right Ventricle The right ventricle is normal in size and function. Atria Normal left and right atrial size and function. Mitral Valve There is no mitral regurgitation noted. Tricuspid Valve There is moderate tricuspid regurgitation. Right ventricular systolic pressure is normal. Aortic Valve No hemodynamically significant valvular aortic stenosis. No aortic regurgitation is present. Pulmonic Valve The pulmonic valve is not well visualized. Great Vessels The aortic root is not well visualized. Pericardium/Pleura There is no pericardial effusion. Interpretation Summary The study was technically limited with all images being suboptimal in quality. The left ventricular size, thickness and function are normal The right ventricle is normal in size and function. There is moderate tricuspid regurgitation. MD Julien Stover 05/15/2018 04:48 PM
[2018-05-15] MEDS ORDERED: SODIUM CHLORIDE 500 ML IV STA (17:15)
--- NOTE | 2018-05-15 17:15 | CON.PULM ---
Consult Consult Specialty:: PULM/CCM Referred by:: CARLEY Reason for Consultation:: SOB / ABNORMAL CT - History of Present Illness Chief Complaint: SOB History of Present Illness: 62 M, well known to our service. 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 Chronic malnutrition and S/P PEG. Admitted from the [facility] due to an abnormal chest x-ray. He does have chronic cough but says it has been more productive. Denies hemoptysis. No travel history or sick contacts. CT chest: new large RUL airspace disease with an air-fluid level: consistent with abscess. Patient noted to be acutely hypoxic on NRBM. NIPPV support was offered but the patient refused despite risks and benefits being explained. - History Source History Provided By: Patient, Medical Record Limitations to Obtaining History: Poor Historian - Past Medical History RESIDENTIAL ASSISTANT: Yes: Other (Muscular dystonia since age 21 year) Cardio/Vascular: Yes: HTN Pulmonary: Yes: Asthma, Pneumonia, Sleep Apnea, Other (Cavitary lesion in lung ruled out for TB) Gastrointestinal: Yes: Constipation, GERD, Other (dysphagia) Hepatobiliary: Yes: Other (as noted in medical record.) Renal/: Yes: BPH (s/p thermal prostate procedure), Neurogenic Bladder ( suprapubic tube ), UTI Infectious Disease: Yes: Other (influenza b august 2013) Psych: Yes: Depression Musculoskeletal: Yes: Other (Muscular dystonia) - Past Surgical History Past Surgical History: Yes: Laminectomy (cervical laminectomy with fusion) - Alcohol/Substance Use Hx Alcohol Use: No History of Substance Use: reports: None Date of Last Use: 05/18/78 (estimated) - Smoking History Smoking history: Never smoked Have you smoked in the past 12 months: No Aproximately how many cigarettes per day: 0 - Social History Usual Living Arrangement: Alone ADL: Support Services 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 History of Recent Travel: No Home Medications - Allergies Allergies/Adverse Reactions: Allergies Allergy/AdvReac Type Severity Reaction Status Date / Time iodine Allergy Severe Low Blood Verified 05/14/18 16:32 Pressure kiwi Allergy Intermediate Swelling Verified 05/14/18 16:32 latex Allergy Unknown Swelling Verified 05/14/18 16:32 shellfish derived Allergy Unknown Verified 05/14/18 16:32 ampicillin sodium Allergy Rash Verified 05/14/18 16:32 [From Unasyn] Fish Containing Products Allergy Difficulty Verified 05/14/18 16:32 Breathing Penicillins Allergy Rash Verified 05/14/18 16:32 sulbactam sodium Allergy Rash Verified 05/14/18 16:32 [From Unasyn] Sulfa (Sulfonamide Allergy Hives Verified 05/14/18 16:32 Antibiotics) [Sulfa(Sulfonamide Antibiotics)] - Home Medications Home Medications: Ambulatory Orders Acetaminophen [Tylenol] 325 mg GT QID 09/11/17 Albuterol 0.083% Nebulizer Jojo [Ventolin 0.083% Nebulizer Soln -] 1 neb NEB Q6H 09/11/17 Bisacodyl [Biscolax] 10 mg RC DAILY 09/11/17 Diazepam [Valium] 5 mg GT TID 09/11/17 Docusate Liquid [Colace Liquid -] 300 mg GT TID 09/11/17 Lps 16-100 Liquid 30 ml GT BID 09/11/17 Methenamine/Sodium Salicylate [Cystex Plus Tablet] 1 each GT DAILY 09/11/17 Metoclopramide Oral Soln [Reglan Oral Solution -] 10 mg GT BID 09/11/17 Polyethylene Glycol 3350 [Clearlax] 17 gm GT DAILY 09/11/17 Ranitidine [Zantac -] 150 mg GT BID 09/11/17 Sennosides [Senna] 17.2 mg GT HS 09/11/17 Tramadol HCl 50 mg GT TID 09/11/17 Acetaminophen 650 mg PO QID PRN 05/14/18 Metoclopramide Oral Soln [Reglan Oral Solution -] 10 ml GT TID 05/14/18 Moxifloxacin HCl [Vigamox 0.5% -] 1 drop OD TID 05/14/18 Fred/Polymyx B Sulf/Dexameth [Maxitrol Eye Drops -] 1 drop OD DAILY 05/14/18 Prednisolone 1% Ophthalmic [Pred Forte 1% -] 1 drop OD TID 05/14/18 Family Disease History - Family Disease History Family Disease History: Diabetes: Father (mild cognitive decline), Heart Disease : Father, CA: Mother (, colon cancer), Other: Father Review of Systems - Review of Systems Constitutional: reports: Lethargy, Loss of Appetite, Malaise, Weakness. denies : Chills, Fever, Night Sweats Eyes: reports: No Symptoms HENT: reports: Difficult Swallowing, Throat Pain Neck: reports: No Symptoms Cardiovascular: reports: Shortness of Breath. denies: Chest Pain, Edema, Palpitations Respiratory: reports: Cough, SOB, SOB on Exertion. denies: Hemoptysis, Snoring , Wheezing Gastrointestinal: reports: No Symptoms Genitourinary: reports: No Symptoms Breasts: reports: No Symptoms Reported Musculoskeletal: reports: No Symptoms Integumentary: reports: No Symptoms Neurological: reports: No Symptoms Endocrine: reports: No Symptoms Hematology/Lymphatic: reports: No Symptoms Psychiatric: reports: No Symptoms Physical Exam Vital Sings: Vital Signs Temperature 101.3 F H 05/15/18 14:00 Pulse Rate 132 H 05/15/18 14:00 Respiratory Rate 24 H 05/15/18 12:00 Blood Pressure 82/54 L 05/15/18 14:00 O2 Sat by Pulse Oximetry (%) 96 05/15/18 09:00 Constitutional: Yes: Moderate Distress, Thin Eyes: Yes: Conjunctiva Clear, EOM Intact HENT: Yes: Atraumatic, Normocephalic Neck: Yes: Supple, Trachea Midline Cardiovascular: Yes: Tachycardia Respiratory: Yes: Accessory Muscle Use, Cough, Diminished, Rhonchi, SOB, SOB on Exertion, Tachypnea, Wheezes, Other (100% NRBM ). No: Stridor ...Inspection: Yes: Pectus Carinatum, Use of Accessory Muscles ...Clubbing: No Gastrointestinal: Yes: Normal Bowel Sounds, Soft Musculoskeletal: Yes: WNL Extremities: Yes: WNL Edema: No Peripheral Pulses WNL: Yes Integumentary: Yes: WNL Neurological: Yes: Alert, Oriented ...Motor Strength: WNL Psychiatric: Yes: Alert, Oriented Labs: CBC, BMP 05/15/18 12:05 05/15/18 12:05 Imaging - Results Chest X-ray: Report Reviewed, Image Reviewed Cat Scan: Report Reviewed, Image Reviewed Problem List - Problems (1) Lung abscess Code(s): J85.2 - ABSCESS OF LUNG WITHOUT PNEUMONIA Qualifiers: Pulmonary abscess pneumonia presence: without pneumonia Laterality: left Lung location: upper lobe of lung Qualified Code(s): J85.2 - Abscess of lung without pneumonia (2) Aspiration of formula Code(s): P24.30 - ASPIRAT OF MILK AND REGURGITATED FOOD W/O RESP SYMP (3) COPD (chronic obstructive pulmonary disease) Code(s): J44.9 - CHRONIC OBSTRUCTIVE PULMONARY DISEASE, UNSPECIFIED Qualifiers: COPD type: COPD with acute exacerbation Qualified Code(s): J44.1 - Chronic obstructive pulmonary disease with (acute) exacerbation (4) Cavitary lesion of lung Code(s): J98.4 - OTHER DISORDERS OF LUNG (5) Dysphagia Code(s): R13.10 - DYSPHAGIA, UNSPECIFIED (6) Dystonia Code(s): G24.9 - DYSTONIA, UNSPECIFIED (7) Empyema lung Code(s): J86.9 - PYOTHORAX WITHOUT FISTULA (8) GERD (gastroesophageal reflux disease) Code(s): K21.9 - GASTRO-ESOPHAGEAL REFLUX DISEASE WITHOUT ESOPHAGITIS (9) HTN (hypertension) Code(s): I10 - ESSENTIAL (PRIMARY) HYPERTENSION Qualifiers: (10) Hypoxemia Code(s): R09.02 - HYPOXEMIA (11) Lung mass Code(s): R91.8 - OTHER NONSPECIFIC ABNORMAL FINDING OF LUNG FIELD (12) Neurogenic bladder Code(s): N31.9 - NEUROMUSCULAR DYSFUNCTION OF BLADDER, UNSPECIFIED (13) Pneumonia Code(s): J18.9 - PNEUMONIA, UNSPECIFIED ORGANISM Qualifiers: (14) Protein-calorie malnutrition, severe Code(s): E43 - UNSPECIFIED SEVERE PROTEIN-CALORIE MALNUTRITION (15) Sinus tachycardia Code(s): R00.0 - TACHYCARDIA, UNSPECIFIED (16) Sepsis Code(s): A41.9 - SEPSIS, UNSPECIFIED ORGANISM Assessment/Plan Patient is refusing NIPPV support despite reviewing risks and benefits: He is DNR/DNI Aspiration precautions 100% NRBM for now Due to overall poor condition unlikely will tolerate surgical intervention ABX per ID BD TX PRN Monitor off systemic steroids for now IVF resuscitation increased Cardiac telemetry monitoring Will follow Thank you. Dr Bolton
[2018-05-15] MEDS: HEPARIN NA (PORCINE) 5,000 UNITS/ML 1ML VIAL SQ SCH (22:10)
[2018-05-15] MEDS: SENNOSIDES 8.6MG TABLET (FP) PO SCH (22:13)
[2018-05-15] MEDS: BUDESONIDE/FORMETEROL FUMARATE 80/4.5 mcg INHALER IH SCH (22:13)
[2018-05-16] MEDS ORDERED: PT OWN MED DRAWER 7, Y5N ONE ×4 (02:27→21:22)
[2018-05-16] MEDS: MEROPENEM 1 GM in DEXTROSE 5%-WATER 100 ML IVPB SCH ×3 (02:36→17:31)
[2018-05-16] MEDS: diazePAM 5 MG TABLET GT SCH ×3 (06:18→21:41)
[2018-05-16] MEDS: HEPARIN NA (PORCINE) 5,000 UNITS/ML 1ML VIAL SQ SCH ×3 (06:19→21:40)
[2018-05-16 06:53] LABS: HEMATOCRIT 26.8 % (35.4-49); HEMOGLOBIN 8.6 GM/dL (11.7-16.9); MCH 31.6 pg (25.7-33.7); MEAN CELL VOLUME 98.7 fl (80-96); MEAN PLT VOLUME 7.2 fl (7.5-11.1); PLATELET COUNT 332 K/MM3 (134-434); RBC 2.72 M/mm3 (4.00-5.60); RDW 14.5 % (11.9-15.9)
[2018-05-16 07:30] LABS: URINE APPEARANCE CLOUDY; URINE BILIRUBIN NEGATIVE (<2.0 mg/dL); URINE GLUCOSE (UA) NEGATIVE (NEGATIVE); URINE KETONE NEGATIVE (NEGATIVE); URINE LEUK ESTERASE TRACE (NEGATIVE); URINE NITRITE NEGATIVE (NEGATIVE); URINE PROTEIN 1+ (NEGATIVE)
[2018-05-16 07:42] LABS: ALBUMIN 1.7 g/dl (3.4-5.0); ALK PHOS 121 U/L (45-117); ANION GAP 7 MMOL/L (8-16); BILIRUBIN,TOTAL 0.4 mg/dL (0.2-1); BLOOD UREA NITROGEN 14 mg/dL (7-18); CALCIUM 7.4 mg/dL (8.5-10.1); CHLORIDE 105 mmol/L (98-107); CO2 27 mmol/L (21-32); CREATININE 0.5 mg/dL (0.55-1.3); GLUCOSE,RANDOM 97 mg/dL (74-106); MAGNESIUM 2.2 mg/dL (1.8-2.4); PHOSPHOROUS 3.6 mg/dL (2.5-4.9); POTASSIUM 4.5 mmol/L (3.5-5.1); SGOT/AST 18 U/L (15-37); SGPT/ALT 16 U/L (13-61); SODIUM 139 mmol/L (136-145); TOT PROT 5.1 g/dl (6.4-8.2)
[2018-05-16 08:19] LABS: URINE COLOR DK YELLOW
[2018-05-16 09:13] LABS: URINE BACTERIA RARE /hpf (NONE SEEN); URINE HYALINE CAST 3 /lpf; URINE MUCUS RARE
[2018-05-16] MEDS: BISACODYL 10 MG SUPP.RECT RC SCH (09:34)
[2018-05-16] MEDS: ACETAMINOPHEN 325 MG TABLET (FP) NR PRN ×2 (09:34→21:41)
[2018-05-16] MEDS: oxyCODONE HCL 5 MG TABLET PEG PRN ×2 (09:36→23:31)
[2018-05-16] MEDS: RANITIDINE HCL 150 MG TABLET (FP) NR SCH ×2 (09:37→21:41)
[2018-05-16] MEDS: METOCLOPRAMIDE HCL 5 MG/5 ML UNIT DOSE CUP GT SCH ×2 (09:37→23:31)
--- NOTE | 2018-05-16 09:45 | EKG ---
Test Reason : Blood Pressure : / mmHG Vent. Rate : 081 BPM Atrial Rate : 081 BPM P-R Int : 136 ms QRS Dur : 116 ms QT Int : 376 ms P-R-T Axes : 083 -60 066 degrees QTc Int : 436 ms NORMAL SINUS RHYTHM LEFT ANTERIOR FASCICULAR BLOCK NONSPECIFIC T WAVE ABNORMALITY ABNORMAL ECG WHEN COMPARED WITH ECG OF 24-DEC-2017 11:30, VENT. RATE HAS INCREASED BY 27 BPM RIGHT BUNDLE BRANCH BLOCK IS NO LONGER PRESENT Confirmed by SOFIE WEAVER MD ([id number]) on 05/16/2018 9:44:59 AM Referred By: Confirmed By:SOFIE WEAVER MD
--- NOTE | 2018-05-16 10:46 | CON.CARD ---
Cardiology Consult (text) - Consultation Consultation Note: cc: pna hpi: 62 m hx muscular dystonia, [place] pna. Pt has no complaint. No cp sob palps dizzy loc pnd orthopnea le edema. CT chest shows large rul mass/fluid collection. Having tachycardia so cardio consulted. pmh: per hpi psh: peg social: no tob fam: no premature cad ros: per hpi; no nvd lucero vision changes hematuria gib dysuria muscle pain meds: Home Medications Medication Instructions Recorded Acetaminophen [Tylenol] 325 mg GT QID 09/11/17 Albuterol 0.083% Nebulizer Jojo 1 neb NEB Q6H 09/11/17 [Ventolin 0.083% Nebulizer Soln -] Bisacodyl [Biscolax] 10 mg RC DAILY 09/11/17 Diazepam [Valium] 5 mg GT TID 09/11/17 Docusate Liquid [Colace Liquid -] 300 mg GT TID 09/11/17 Lps 16-100 Liquid 30 ml GT BID 09/11/17 Methenamine/Sodium Salicylate 1 each GT DAILY 09/11/17 [Cystex Plus Tablet] Metoclopramide Oral Soln [Reglan 10 mg GT BID 09/11/17 Oral Solution -] Polyethylene Glycol 3350 [Clearlax] 17 gm GT DAILY 09/11/17 Ranitidine [Zantac -] 150 mg GT BID 09/11/17 Sennosides [Senna] 17.2 mg GT HS 09/11/17 Tramadol HCl 50 mg GT TID 09/11/17 Acetaminophen 650 mg PO QID PRN 05/14/18 Metoclopramide Oral Soln [Reglan 10 ml GT TID 05/14/18 Oral Solution -] Moxifloxacin HCl [Vigamox 0.5% -] 1 drop OD TID 05/14/18 Fred/Polymyx B Sulf/Dexameth 1 drop OD DAILY 05/14/18 [Maxitrol Eye Drops -] Prednisolone 1% Ophthalmic [Pred 1 drop OD TID 05/14/18 Forte 1% -] pe: Vital Signs Period Temp Pulse Resp BP Sys/Marroquin Pulse Ox Last 24 Hr 97.5 F-103.3 F 69-141 20-24 72-105/50-57 93 nad no jvd scattered rhonci, nl eff rrr s1s2 no mrg no le e/c/c pos dp pt no carotid bruits no jaundice diaphoresis aaox3 abd nt nd pos bs Laboratory Last Values WBC 12.0 K/mm3 (4.0-10.0) H 05/16/18 05:30 RBC 2.72 M/mm3 (4.00-5.60) L 05/16/18 05:30 Hgb 8.6 GM/dL (11.7-16.9) L 05/16/18 05:30 Hct 26.8 % (35.4-49) L D 05/16/18 05:30 MCV 98.7 fl (80-96) H 05/16/18 05:30 MCH 31.6 pg (25.7-33.7) 05/16/18 05:30 MCHC 32.0 g/dl (32.0-35.9) 05/16/18 05:30 RDW 14.5 % (11.9-15.9) 05/16/18 05:30 Plt Count 332 K/MM3 (134-434) D 05/16/18 05:30 MPV 7.2 fl (7.5-11.1) L 05/16/18 05:30 Absolute Neuts (auto) 23.1 K/mm3 (1.5-8.0) H 05/15/18 12:05 Neutrophils % 93.7 % (42.8-82.8) H 05/15/18 12:05 Neutrophils % (Manual) 66.0 % (42.8-82.8) 05/15/18 12:05 Band Neutrophils % 30.0 % 05/15/18 12:05 Lymphocytes % 1.2 % (8-40) L D 05/15/18 12:05 Lymphocytes % (Manual) 1.0 % (8-40) L D 05/15/18 12:05 Monocytes % 5.0 % (3.8-10.2) 05/15/18 12:05 Monocytes % (Manual) 2 % (3.8-10.2) L D 05/15/18 12:05 Eosinophils % 0.0 % (0-4.5) D 05/15/18 12:05 Eosinophils % (Manual) 0.0 % (0-4.5) D 05/15/18 12:05 Basophils % 0.1 % (0-2.0) 05/15/18 12:05 Basophils % (Manual) 0.0 % (0-2.0) 05/15/18 12:05 Myelocytes % (Man) 0 % (0-2) 05/15/18 12:05 Promyelocytes % (Man) 0 % (0-2) 05/15/18 12:05 Blast Cells % (Manual) 0 % (0-0) 05/15/18 12:05 Nucleated RBC % 0 % (0-0) 05/15/18 12:05 Metamyelocytes 1 % (0-2) 05/15/18 12:05 Hypochromia 0 05/15/18 12:05 Platelet Estimate Increased 05/15/18 12:05 Polychromasia 0 05/15/18 12:05 Poikilocytosis 0 05/15/18 12:05 Anisocytosis 1+ 05/15/18 12:05 Microcytosis 1+ 05/15/18 12:05 Macrocytosis 0 05/15/18 12:05 Sodium 139 mmol/L (136-145) 05/16/18 05:30 Potassium 4.5 mmol/L (3.5-5.1) 05/16/18 05:30 Chloride 105 mmol/L (98-107) 05/16/18 05:30 Carbon Dioxide 27 mmol/L (21-32) 05/16/18 05:30 Anion Gap 7 MMOL/L (8-16) L 05/16/18 05:30 BUN 14 mg/dL (7-18) 05/16/18 05:30 Creatinine 0.5 mg/dL (0.55-1.3) L 05/16/18 05:30 Creat Clearance w eGFR > 60 (>60) 05/16/18 05:30 Random Glucose 97 mg/dL (74-106) 05/16/18 05:30 Lactic Acid 2.0 mmol/L (0.4-2.0) 05/15/18 20:25 Calcium 7.4 mg/dL (8.5-10.1) L 05/16/18 05:30 Phosphorus 3.6 mg/dL (2.5-4.9) 05/16/18 05:30 Magnesium 2.2 mg/dL (1.8-2.4) 05/16/18 05:30 Total Bilirubin 0.4 mg/dL (0.2-1) 05/16/18 05:30 AST 18 U/L (15-37) 05/16/18 05:30 ALT 16 U/L (13-61) 05/16/18 05:30 Alkaline Phosphatase 121 U/L (45-117) H 05/16/18 05:30 Creatine Kinase 29 IU/L (26-308) 05/15/18 12:05 Troponin I < 0.02 ng/ml (0.00-0.05) 05/15/18 12:05 Total Protein 5.1 g/dl (6.4-8.2) L 05/16/18 05:30 Albumin 1.7 g/dl (3.4-5.0) L 05/16/18 05:30 Urine Color Dk yellow 05/15/18 22:20 Urine Appearance Cloudy 05/15/18 22:20 Urine pH 5.0 (5.0-8.0) D 05/15/18 22:20 Ur Specific [place] 1.019 (1.010-1.035) 05/15/18 22:20 Urine Protein 1+ (NEGATIVE) H 05/15/18 22:20 Urine Glucose (UA) Negative (NEGATIVE) 05/15/18 22:20 Urine Ketones Negative (NEGATIVE) 05/15/18 22:20 Urine Blood Negative (NEGATIVE) 05/15/18 22:20 Urine Nitrite Negative (NEGATIVE) 05/15/18 22:20 Urine Bilirubin Negative (<2.0 mg/dL) 05/15/18 22:20 Urine Urobilinogen 2.0 mg/dL (0.2-1.0) 05/15/18 22:20 Ur Leukocyte Esterase Trace (NEGATIVE) 05/15/18 22:20 Urine WBC (Auto) 34 /hpf (3-5) 05/15/18 22:20 Urine RBC (Auto) 5 /hpf (0-3) 05/15/18 22:20 Urine Bacteria Rare /hpf (NONE SEEN) 05/15/18 22:20 Hyaline Casts 3 /lpf 05/15/18 22:20 Urine Mucus Rare 05/15/18 22:20 Influenza A (Rapid) Negative 05/15/18 22:00 Influenza B (Rapid) Negative 05/15/18 22:00 ecg: sinus tach, nl intervals, irbbb echo 04/2018: tds; nl lv/rv, mod tr, nl rvsp ct chest: rul mass/fluid collection tele: st a/p: 62 m hx muscular dystonia, [place], [place], [place] p[place]. pna: -abx per ID sinus tachy: -echo and ecg unremarkable -tele shows sinus tach, no arrhythmias -sinus tach 2/2 pna/resp distress. Continue to treat underlying issues, no specific tx needed for HR at this time.
[2018-05-16] MEDS: VANCOMYCIN 1,250 MG in DEXTROSE 5%-WATER - 250 ML IVPB SCH (12:27)
--- NOTE | 2018-05-16 13:27 | PN ---
Progress Note, Physician History of Present Illness: says he is feeling very weak no other complaints - Current Medication List Current Medications: Active Medications Acetaminophen (Tylenol -) 650 mg NR Q4H PRN PRN Reason: PAIN 1-3 Last Admin: 05/16/18 09:34 Dose: 650 mg Bisacodyl (Dulcolax Suppository -) 10 mg RC DAILY [facility] Last Admin: 05/16/18 09:34 Dose: 10 mg Budesonide/Formoterol Fumarate (Symbicort 80/4.5mcg -) 2 puff IH BID [facility] Last Admin: 05/15/18 22:13 Dose: 2 puff Diazepam (Valium -) 5 mg GT TID [facility] Last Admin: 05/16/18 06:18 Dose: 5 mg Docusate Sodium (Colace Liquid -) 300 mg GT DAILY [facility] Last Admin: 05/15/18 12:19 Dose: Not Given Heparin Sodium (Porcine) (Heparin -) 5,000 unit SQ TID [facility] Last Admin: 05/16/18 06:19 Dose: Not Given Vancomycin HCl 1,250 mg/ (Dextrose) 250 mls @ 250 mls/2 hr IVPB Q24H [facility]; Protocol Last Admin: 05/16/18 12:27 Dose: 250 mls/2 hr Meropenem 1 gm/ Dextrose 100 mls @ 200 mls/hr IVPB Q8H-IV [facility] Last Admin: 05/16/18 09:38 Dose: 200 mls/hr Sodium Chloride (Normal Saline -) 1,000 mls @ 125 mls/hr IV ASDIR [facility] Last Admin: 05/15/18 18:36 Dose: 125 mls/hr Ipratropium [place] (Atrovent 0.02% Nebulizer -) 1 amp NEB Q6H PRN PRN Reason: DYSPEPSIA Stop: 05/22/18 12:05 Metoclopramide HCl (Reglan Oral Solution -) 10 mg GT BID [facility] Last Admin: 05/16/18 09:37 Dose: 10 mg Metoprolol Tartrate (Lopressor Injection -) 5 mg IVPUSH Q4H PRN PRN Reason: HYPERTENSION Non-Formulary Medication (Methenamine/Sodium Salicylate [Cystex Plus Tablet]) 1 each GT DAILY [facility] Oxycodone HCl (Roxicodone -) 5 mg PEG Q4H PRN PRN Reason: PAIN LEVEL 6-10 Last Admin: 05/16/18 09:36 Dose: 5 mg Polyethylene Glycol (Miralax (For Daily Use) -) 17 gm GT DAILY [facility] Last Admin: 05/15/18 12:19 Dose: 17 grams Ranitidine HCl (Zantac -) 150 mg NR BID [facility] Last Admin: 05/16/18 09:37 Dose: 150 mg Senna (Senna -) 2 tab PO HS [facility] Last Admin: 05/15/18 22:13 Dose: Not Given - Objective Vital Signs: Vital Signs Temperature 97.5 F L 05/16/18 05:00 Pulse Rate 115 H 05/16/18 09:31 Respiratory Rate 20 05/16/18 09:31 Blood Pressure 99/53 L 05/16/18 09:31 O2 Sat by Pulse Oximetry (%) 93 L 05/15/18 21:00 Constitutional: Yes: Calm, Mild Distress Cardiovascular: Yes: Regular Rate and Rhythm Respiratory: Yes: Poor Air Entry, Rhonchi Gastrointestinal: Yes: Normal Bowel Sounds, Soft Musculoskeletal: Yes: WNL Extremities: Yes: Other (contracted) Neurological: Yes: Alert, Oriented Psychiatric: Yes: Alert Labs: CBC, BMP 05/16/18 05:30 05/16/18 05:30 Assessment/Plan Problem List - Problems (1) Cavitary lesion of lung Code(s): J98.4 - OTHER DISORDERS OF LUNG (2) COPD (chronic obstructive pulmonary disease) Code(s): J44.9 - CHRONIC OBSTRUCTIVE PULMONARY DISEASE, UNSPECIFIED Qualifiers: COPD type: COPD with acute exacerbation Qualified Code(s): J44.1 - Chronic obstructive pulmonary disease with (acute) exacerbation (3) Constipation Code(s): K59.00 - CONSTIPATION, UNSPECIFIED Qualifiers: Constipation type: unspecified constipation type Qualified Code(s): K59.00 - Constipation, unspecified (4) Dysphagia Code(s): R13.10 - DYSPHAGIA, UNSPECIFIED (5) GERD (gastroesophageal reflux disease) Code(s): K21.9 - GASTRO-ESOPHAGEAL REFLUX DISEASE WITHOUT ESOPHAGITIS (6) Protein-calorie malnutrition, severe Code(s): E43 - UNSPECIFIED SEVERE PROTEIN-CALORIE MALNUTRITION plan continue abx nutrition thoracic surgery rest as per the team pul on case
[2018-05-16 15:51] VITALS: BMI 16.9
--- NOTE | 2018-05-16 16:18 | PN ---
Teaching Attending Note Name of Resident: Yarely Falcon ATTENDING PHYSICIAN STATEMENT I saw and evaluated the patient. I reviewed the resident's note and discussed the case with the resident. I agree with the resident's findings and plan as documented. SUBJECTIVE: Mr Nash says he is feeling bad, cannot explain further. Today says he wants to explore options for treatment including surgery OBJECTIVE: Last Vital Signs Temp Pulse Resp BP Pulse Ox 36.8 C 94 H 22 H 96/55 L 93 L 05/16/18 14:25 05/16/18 14:25 05/16/18 14:25 05/16/18 14:25 05/15/18 21:00 Gen: nad, thin Pulm: diffuse ronchi throughout all lung wiggins with very wet sounding cough CV: tachycardic but regular w/o m/r/g Abd: +bs, s/nt/nd, scaphoid Ext: no c/c/e CBC, BMP 05/16/18 05:30 05/16/18 05:30 ASSESSMENT AND PLAN: (1) Lung abscess Assessment/Plan: -case d/w ID and pulmonary -will consult CT surgery for evaluation but may not be candidate for surgical intervention considering comorbidities -? if able to drain, but there is concern for possible seeding -continue vancomycin and merrem -poor prognosis Code(s): J85.2 - ABSCESS OF LUNG WITHOUT PNEUMONIA Qualifiers: Pulmonary abscess pneumonia presence: without pneumonia Laterality: left Lung location: upper lobe of lung Qualified Code(s): J85.2 - Abscess of lung without pneumonia (2) Severe sepsis Assessment/Plan: -continue hydration and IV antibiotics Code(s): A41.9 - SEPSIS, UNSPECIFIED ORGANISM; R65.20 - SEVERE SEPSIS WITHOUT SEPTIC SHOCK (3) COPD (chronic obstructive pulmonary disease) Assessment/Plan: -appreciate pulmonary support -continue atrovent and symbicort Code(s): J44.9 - CHRONIC OBSTRUCTIVE PULMONARY DISEASE, UNSPECIFIED Qualifiers: COPD type: COPD with acute exacerbation Qualified Code(s): J44.1 - Chronic obstructive pulmonary disease with (acute) exacerbation (4) Constipation Assessment/Plan: -resolved Code(s): K59.00 - CONSTIPATION, UNSPECIFIED Qualifiers: Constipation type: unspecified constipation type Qualified Code(s): K59.00 - Constipation, unspecified (5) Dysphagia Assessment/Plan: -PEG tube in place -will hold TF secondary to possible aspiration Code(s): R13.10 - DYSPHAGIA, UNSPECIFIED (6) GERD (gastroesophageal reflux disease) Assessment/Plan: -continue zantac Code(s): K21.9 - GASTRO-ESOPHAGEAL REFLUX DISEASE WITHOUT ESOPHAGITIS (7) Protein-calorie malnutrition, severe Assessment/Plan: -holding TF at this time secondary to chronic aspiration causing worsening of respiratory status in patient Code(s): E43 - UNSPECIFIED SEVERE PROTEIN-CALORIE MALNUTRITION Problem List - Problems (1) Lung abscess Code(s): J85.2 - ABSCESS OF LUNG WITHOUT PNEUMONIA Qualifiers: Pulmonary abscess pneumonia presence: without pneumonia Laterality: left Lung location: upper lobe of lung Qualified Code(s): J85.2 - Abscess of lung without pneumonia (2) Severe sepsis Code(s): A41.9 - SEPSIS, UNSPECIFIED ORGANISM; R65.20 - SEVERE SEPSIS WITHOUT SEPTIC SHOCK (3) COPD (chronic obstructive pulmonary disease) Code(s): J44.9 - CHRONIC OBSTRUCTIVE PULMONARY DISEASE, UNSPECIFIED Qualifiers: COPD type: COPD with acute exacerbation Qualified Code(s): J44.1 - Chronic obstructive pulmonary disease with (acute) exacerbation (4) Constipation Code(s): K59.00 - CONSTIPATION, UNSPECIFIED Qualifiers: Constipation type: unspecified constipation type Qualified Code(s): K59.00 - Constipation, unspecified (5) Dysphagia Code(s): R13.10 - DYSPHAGIA, UNSPECIFIED (6) GERD (gastroesophageal reflux disease) Code(s): K21.9 - GASTRO-ESOPHAGEAL REFLUX DISEASE WITHOUT ESOPHAGITIS (7) Protein-calorie malnutrition, severe Code(s): E43 - UNSPECIFIED SEVERE PROTEIN-CALORIE MALNUTRITION
--- NOTE | 2018-05-16 16:21 | PN ---
Physical Exam: SUBJECTIVE: Patient seen and examined at bed side this morning. States he has pain in the left side of the ribs and left sided chest pain ,7/10 in intensity, non radiating, associated with palpitation and shortness of breath. OBJECTIVE: Vital Signs Period Temp Pulse Resp BP Sys/Marroquin Pulse Ox Last 24 Hr 97.5 F-99.1 F 69-115 20-22 72-105/50-55 93 GENERAL: Middle aged male, cachectic, lying in bed, in respiratory distress, on non rebreather, patient is awake, alert, and fully oriented. HEAD: Normal with no signs of trauma. EYES: No Pallor or icterus. ENT: Ears normal, dry mucous membranes. NECK: Supple. LUNGS: Coarse breath sounds +. Using assessory muscles. HEART: Tachycardic, Regular rate and rhythm, S1, S2 without murmur. ABDOMEN: Suprapubic tube in place, PEG, Soft, nontender, no organomegaly. EXTREMITIES: 2+ pulses, warm, well-perfused, no edema. NEUROLOGICAL: No facial droop. Normal speech, gait not observed. PSYCH: Normal mood, normal affect. SKIN: Warm, dry, normal turgor, no rashes or lesions noted Laboratory Results - last 24 hr 05/15/18 05/15/18 05/15/18 16:00 20:25 22:00 WBC RBC Hgb Hct MCV MCH MCHC RDW Plt Count MPV Sodium Potassium Chloride Carbon Dioxide Anion Gap BUN Creatinine Creat Clearance w eGFR Random Glucose Lactic Acid 2.8 H* 2.0 Calcium Phosphorus Magnesium Total Bilirubin AST ALT Alkaline Phosphatase Total Protein Albumin Urine Color Urine Appearance Urine pH Ur Specific [place] Urine Protein Urine Glucose (UA) Urine Ketones Urine Blood Urine Nitrite Urine Bilirubin Urine Urobilinogen Ur Leukocyte Esterase Urine WBC (Auto) Urine RBC (Auto) Urine Bacteria Hyaline Casts Urine Mucus Influenza A (Rapid) Negative Influenza B (Rapid) Negative 05/15/18 05/16/18 05/16/18 22:20 05:30 05:30 WBC 12.0 H RBC 2.72 L Hgb 8.6 L Hct 26.8 L D MCV 98.7 H MCH 31.6 MCHC 32.0 RDW 14.5 Plt Count 332 D MPV 7.2 L Sodium 139 Potassium 4.5 Chloride 105 Carbon Dioxide 27 Anion Gap 7 L BUN 14 Creatinine 0.5 L Creat Clearance w eGFR > 60 Random Glucose 97 Lactic Acid Calcium 7.4 L Phosphorus 3.6 Magnesium 2.2 Total Bilirubin 0.4 AST 18 ALT 16 Alkaline Phosphatase 121 H Total Protein 5.1 L Albumin 1.7 L Urine Color Dk yellow Urine Appearance Cloudy Urine pH 5.0 D Ur Specific [place] 1.019 Urine Protein 1+ H Urine Glucose (UA) Negative Urine Ketones Negative Urine Blood Negative Urine Nitrite Negative Urine Bilirubin Negative Urine Urobilinogen 2.0 Ur Leukocyte Esterase Trace Urine WBC (Auto) 34 Urine RBC (Auto) 5 Urine Bacteria Rare Hyaline Casts 3 Urine Mucus Rare Influenza A (Rapid) Influenza B (Rapid) Active Medications Generic Name Dose Route Start Last Admin Trade Name Freq PRN Reason Stop Dose Admin Acetaminophen 650 mg 05/14/18 17:04 05/16/18 09:34 Tylenol - NR 650 mg Q4H PRN Administration PAIN 1-3 Bisacodyl 10 mg 05/15/18 10:00 05/16/18 09:34 Dulcolax Suppository - RC 10 mg DAILY [facility] Administration Budesonide/Formoterol Fumarate 2 puff 05/15/18 22:00 05/15/18 22:13 Symbicort 80/4.5mcg - IH 2 puff BID [facility] Administration Diazepam 5 mg 05/14/18 22:00 05/16/18 06:18 Valium - GT 5 mg TID [facility] Administration Docusate Sodium 300 mg 05/15/18 10:00 05/15/18 12:19 Colace Liquid - GT Not Given DAILY [facility] Heparin Sodium (Porcine) 5,000 unit 05/15/18 22:00 05/16/18 06:19 Heparin - SQ Not Given TID [facility] Vancomycin HCl 1,250 mg/ 250 mls @ 250 mls/2 hr 05/15/18 10:45 05/16/18 12:27 Dextrose IVPB 250 mls/2 hr Q24H [facility] Administration Protocol Meropenem 1 gm/ Dextrose 100 mls @ 200 mls/hr 05/15/18 11:00 05/16/18 09:38 IVPB 200 mls/hr Q8H-IV [facility] Administration Sodium Chloride 1,000 mls @ 125 mls/hr 05/15/18 17:16 05/15/18 18:36 Normal Saline - IV 125 mls/hr ASDIR [facility] Administration Ipratropium [place] 1 amp 05/15/18 12:04 Atrovent 0.02% Nebulizer - NEB 05/22/18 12:05 Q6H PRN DYSPEPSIA Metoclopramide HCl 10 mg 05/14/18 22:00 05/16/18 09:37 Reglan Oral Solution - GT 10 mg BID [facility] Administration Metoprolol Tartrate 5 mg 05/15/18 12:06 Lopressor Injection - IVPUSH Q4H PRN HYPERTENSION Non-Formulary Medication 1 each 05/15/18 10:00 Methenamine/Sodium Salicylate [Cystex Plus Tablet] GT DAILY [facility] Oxycodone HCl 5 mg 05/15/18 11:09 05/16/18 09:36 Roxicodone - PEG 5 mg Q4H PRN Administration PAIN LEVEL 6-10 Polyethylene Glycol 17 gm 05/15/18 10:00 05/15/18 12:19 Miralax (For Daily Use) - GT 17 grams DAILY [facility] Administration Ranitidine HCl 150 mg 05/14/18 22:00 05/16/18 09:37 Zantac - NR 150 mg BID [facility] Administration Senna 2 tab 05/14/18 22:00 05/15/18 22:13 Senna - PO Not Given HS [facility] ASSESSMENT/PLAN: Patient is a 61-year old male, with history of bronchiectasis, neurogenic bladder with a suprapubic tube, asthma,COPD, GERD, HTN, carpal tunnel, hemoptysis, dysphagsia requiring a peg tub for feed. dystonia for 32 yrs, bronchiectasis was sent from [facility] for evaluation of abnormal CXR. # Sepsis from acute hypoxic respiratory failure likely secondary to aspiration- r/o aspiration pneumonia Labs today showed leukocytosis improving 24--> 12, lactic acidosis resolved. IV NS started and continued @ 75mls/hr IV Meropenem 1gm Q8H Day 2 IV Vancomycin 1250 mg daily Day 2 Blood cultures negative. urine cultures pending. Flu negative, urine for legionella pending Continue Chest PT, Ipratropium nebs, Symbicort. Albuterol avoided due to tachycardia # Sinus tachycardia Likely from sepsis vs anxiety. Cardiac unlikely, ekg normal, echo normal. No events on tele. Should improve with sepsis treatment Stat EKG done this morning. showed Sinus tachy ECHO reviewed Cardio consult requested # Lung mass necrotizing mass vs abscess vs malignancy Discussed with pulmonary, doesn't recommend tapping due to risk of spreading the infection and also considering his comorbidities, would be a high risk. Palliative care on board. As compared to CT done in 09/11/17, the right upper lobe mass is new. # Dysphagia PEG tube in place. Hold feeds for now due to aspiration risk. # Normocytic anemia H/H Stable since last admission. Will monitor # Constipation Continue Bowel regimen. # FEN IV NS @ 125 mls/hr Electrolytes to be repeated in AM NPO for now, no feeding from the PEG tube, aspiration precautions. # Prophylaxis For DVT: SCDs For GI: On Ranitidine # Code Status: DNR/DNR. Prognosis guarded. # Dispo: Duration of stay unknown. Admit to Tele. Plan of care explained to the patient. He verbalized understanding. Case discussed with Dr. Dos Santos. Visit type - Emergency Visit Emergency Visit: Yes ED Registration Date: 05/15/18 Care time: The patient presented to the Emergency Department on the above date and was hospitalized for further evaluation of their emergent condition. - New Patient This patient is new to me today: No - Critical Care Critical Care patient: No - Discharge Referral Referred to [facility] No
[2018-05-16] MEDS: BUDESONIDE/FORMETEROL FUMARATE 80/4.5 mcg INHALER IH SCH ×2 (16:28→22:01)
--- NOTE | 2018-05-16 17:15 | PN ---
Progress Note (short form) - Note Progress Note: PULMONARY WELL KNOWN TO OUR SERVICE WEAK/ON NON RE-BREATHER PALE DIMINISHED B/L BREATH SOUNDS S1S2 BS+ NO EDEMA LABS/MEDS/NOTES/IMAGES REVIEWED (1) Lung abscess Code(s): J85.2 - ABSCESS OF LUNG WITHOUT PNEUMONIA Qualifiers: Pulmonary abscess pneumonia presence: without pneumonia Laterality: left Lung location: upper lobe of lung Qualified Code(s): J85.2 - Abscess of lung without pneumonia (2) Aspiration of formula Code(s): P24.30 - ASPIRAT OF MILK AND REGURGITATED FOOD W/O RESP SYMP (3) COPD (chronic obstructive pulmonary disease) Code(s): J44.9 - CHRONIC OBSTRUCTIVE PULMONARY DISEASE, UNSPECIFIED Qualifiers: COPD type: COPD with acute exacerbation Qualified Code(s): J44.1 - Chronic obstructive pulmonary disease with (acute) exacerbation (4) Cavitary lesion of lung Code(s): J98.4 - OTHER DISORDERS OF LUNG (5) Dysphagia Code(s): R13.10 - DYSPHAGIA, UNSPECIFIED (6) Dystonia Code(s): G24.9 - DYSTONIA, UNSPECIFIED (7) Empyema lung Code(s): J86.9 - PYOTHORAX WITHOUT FISTULA (8) GERD (gastroesophageal reflux disease) Code(s): K21.9 - GASTRO-ESOPHAGEAL REFLUX DISEASE WITHOUT ESOPHAGITIS (9) HTN (hypertension) Code(s): I10 - ESSENTIAL (PRIMARY) HYPERTENSION Qualifiers: (10) Hypoxemia Code(s): R09.02 - HYPOXEMIA (11) Lung mass Code(s): R91.8 - OTHER NONSPECIFIC ABNORMAL FINDING OF LUNG FIELD (12) Neurogenic bladder Code(s): N31.9 - NEUROMUSCULAR DYSFUNCTION OF BLADDER, UNSPECIFIED (13) Pneumonia Code(s): J18.9 - PNEUMONIA, UNSPECIFIED ORGANISM Qualifiers: (14) Protein-calorie malnutrition, severe Code(s): E43 - UNSPECIFIED SEVERE PROTEIN-CALORIE MALNUTRITION (15) Sinus tachycardia Code(s): R00.0 - TACHYCARDIA, UNSPECIFIED (16) Sepsis Code(s): A41.9 - SEPSIS, UNSPECIFIED ORGANISM Assessment/Plan Patient is refusing NIPPV support despite reviewing risks and benefits: He is DNR/DNI Aspiration precautions 100% NRBM for now Due to overall poor condition unlikely will tolerate surgical intervention ABX per ID BD TX PRN Monitor off systemic steroids for now IVF resuscitation increased Cardiac telemetry monitoring Will follow Bryan GAYTAN MD
--- NOTE | 2018-05-16 19:14 | EKG ---
Test Reason : Blood Pressure : / mmHG Vent. Rate : 100 BPM Atrial Rate : 100 BPM P-R Int : 132 ms QRS Dur : 122 ms QT Int : 366 ms P-R-T Axes : 084 -58 075 degrees QTc Int : 472 ms NORMAL SINUS RHYTHM RIGHT BUNDLE BRANCH BLOCK LEFT ANTERIOR FASCICULAR BLOCK BIFASCICULAR BLOCK ABNORMAL ECG WHEN COMPARED WITH ECG OF 15-MAY-2018 11:49, PREMATURE VENTRICULAR COMPLEXES ARE NO LONGER PRESENT VENT. RATE HAS DECREASED BY 49 BPM RIGHT BUNDLE BRANCH BLOCK HAS REPLACED INCOMPLETE RIGHT BUNDLE BRANCH BLOCK MINIMAL CRITERIA FOR INFERIOR INFARCT ARE NO LONGER PRESENT Confirmed by MEG CHAPMAN, SOFIE ([id number]) on 05/16/2018 7:14:18 PM Referred By: MARY STEELE Confirmed By:SOFIE WEAVER MD
[2018-05-16] MEDS: SODIUM CHLORIDE 1,000 ML IV SCH (21:40)
[2018-05-16] MEDS: SENNOSIDES 8.6MG TABLET (FP) PO SCH (21:41)
[2018-05-17] MEDS: MEROPENEM 1 GM in DEXTROSE 5%-WATER 100 ML IVPB SCH ×3 (03:00→17:28)
[2018-05-17] MEDS: HEPARIN NA (PORCINE) 5,000 UNITS/ML 1ML VIAL SQ SCH ×4 (06:36→22:48)
[2018-05-17] MEDS: diazePAM 5 MG TABLET GT SCH ×3 (06:36→22:37)
[2018-05-17 07:58] LABS: HEMATOCRIT 27.7 % (35.4-49); HEMOGLOBIN 8.6 GM/dL (11.7-16.9); MCH 30.6 pg (25.7-33.7); MEAN CELL VOLUME 98.8 fl (80-96); MEAN PLT VOLUME 6.8 fl (7.5-11.1); PLATELET COUNT 392 K/MM3 (134-434); RBC 2.81 M/mm3 (4.00-5.60); RDW 14.6 % (11.9-15.9); WHITE BLOOD COUNT 18.6 K/mm3 (4.0-10.0)
[2018-05-17 08:31] LABS: ANION GAP 5 MMOL/L (8-16); BLOOD UREA NITROGEN 14 mg/dL (7-18); CALCIUM 7.9 mg/dL (8.5-10.1); CHLORIDE 106 mmol/L (98-107); CO2 29 mmol/L (21-32); CREATININE 0.4 mg/dL (0.55-1.3); GLUCOSE,RANDOM 94 mg/dL (74-106); POTASSIUM 4.4 mmol/L (3.5-5.1); SODIUM 140 mmol/L (136-145)
--- NOTE | 2018-05-17 09:09 | PN ---
Progress Note (short form) - Note Progress Note: Thoracic Surgery: Full consult to follow. Appears to have lung abscess or cavitary lesion. I recommend an IR drain be placed with cultures and cytology, and likely prolonged abx. Drain should stay in at least a few weeks.
[2018-05-17] MEDS ORDERED: PT OWN MED DRAWER 7, Y5N ONE ×3 (09:28→21:58)
[2018-05-17] MEDS: DOCUSATE NA 100 MG/10 ML UNIT-DOSE CUPS GT SCH ×2 (10:27→17:28)
[2018-05-17] MEDS: POLYETHYLENE GLYCOL 3350 119 GM BTL GT SCH ×2 (10:27→17:30)
[2018-05-17] MEDS: BISACODYL 10 MG SUPP.RECT RC SCH (10:28)
[2018-05-17] MEDS: METOCLOPRAMIDE HCL 5 MG/5 ML UNIT DOSE CUP GT SCH ×2 (10:28→22:36)
[2018-05-17] MEDS: BUDESONIDE/FORMETEROL FUMARATE 80/4.5 mcg INHALER IH SCH ×2 (10:29→22:36)
[2018-05-17] MEDS: RANITIDINE HCL 150 MG TABLET (FP) NR SCH ×2 (10:29→22:36)
[2018-05-17] MEDS: VANCOMYCIN 1,250 MG in DEXTROSE 5%-WATER - 250 ML IVPB SCH (11:52)
--- NOTE | 2018-05-17 12:17 | PN ---
Progress Note (short form) - Note Progress Note: s: sob a little less, no cp palps dizzy o: Vital Signs Period Temp Pulse Resp BP Sys/Marroquin Pulse Ox Last 24 Hr 97.2 F-98.2 F 94-109 20-22 90-120/50-77 94-96 nad no jvd scattered rhonci, nl eff rrr s1s2 no mrg no le e/c/c no jaundice diaphoresis aaox3 abd nt nd pos bs Current Medications Generic Name Dose Route Start Last Admin Trade Name Freq PRN Reason Stop Dose Admin Acetaminophen 650 mg 05/14/18 17:04 05/16/18 21:41 Tylenol - NR 650 mg Q4H PRN Administration PAIN 1-3 Bisacodyl 10 mg 05/15/18 10:00 05/17/18 10:28 Dulcolax Suppository - RC Not Given DAILY [facility] Budesonide/Formoterol Fumarate 2 puff 05/15/18 22:00 05/17/18 10:29 Symbicort 80/4.5mcg - IH Not Given BID [facility] Diazepam 5 mg 05/14/18 22:00 05/17/18 06:36 Valium - GT Not Given TID [facility] Docusate Sodium 300 mg 05/15/18 10:00 05/17/18 10:27 Colace Liquid - GT Not Given DAILY [facility] Heparin Sodium (Porcine) 5,000 unit 05/15/18 22:00 05/17/18 06:36 Heparin - SQ Not Given TID [facility] Vancomycin HCl 1,250 mg/ 250 mls @ 250 mls/2 hr 05/15/18 10:45 05/17/18 11:52 Dextrose IVPB 250 mls/2 hr Q24H [facility] Administration Protocol Meropenem 1 gm/ Dextrose 100 mls @ 200 mls/hr 05/15/18 11:00 05/17/18 10:28 IVPB 200 mls/hr Q8H-IV [facility] Administration Sodium Chloride 1,000 mls @ 125 mls/hr 05/15/18 17:16 05/16/18 21:40 Normal Saline - IV Not Given ASDIR [facility] Ipratropium [place] 1 amp 05/15/18 12:04 Atrovent 0.02% Nebulizer - NEB 05/22/18 12:05 Q6H PRN DYSPEPSIA Metoclopramide HCl 10 mg 05/14/18 22:00 05/17/18 10:28 Reglan Oral Solution - GT 10 mg BID [facility] Administration Metoprolol Tartrate 5 mg 05/15/18 12:06 Lopressor Injection - IVPUSH Q4H PRN HYPERTENSION Non-Formulary Medication 1 each 05/15/18 10:00 Methenamine/Sodium Salicylate [Cystex Plus Tablet] GT DAILY [facility] Oxycodone HCl 5 mg 05/15/18 11:09 05/16/18 23:31 Roxicodone - PEG 5 mg Q4H PRN Administration PAIN LEVEL 6-10 Polyethylene Glycol 17 gm 05/15/18 10:00 05/17/18 10:27 Miralax (For Daily Use) - GT Not Given DAILY [facility] Ranitidine HCl 150 mg 05/14/18 22:00 05/17/18 10:29 Zantac - NR 150 mg BID [facility] Administration Senna 2 tab 05/14/18 22:00 05/16/18 21:41 Senna - PO 2 tab HS [facility] Administration CBC, BMP 05/17/18 07:00 05/17/18 07:00 ecg: sinus tach, nl intervals, irbbb echo 04/2018: tds; nl lv/rv, mod tr, nl rvsp ct chest: rul mass/fluid collection tele: sr a/p: 62 m hx muscular dystonia, [place], [place] resident, sent from [place] for [place] cxr/ pna. pna: -abx per ID sinus tachy: -echo and ecg unremarkable -tele shows sinus tach, no arrhythmias -sinus tach 2/2 pna/resp distress. Continue to treat underlying issues, no specific tx needed for HR at this time.
[2018-05-17] MEDS ORDERED: MORPHINE SULFATE 2 MG/ML VIAL IVPUSH PRN (13:40)
--- NOTE | 2018-05-17 14:36 | PN ---
Progress Note, Physician Chief Complaint: Mr Nash says he feels bad, complains of having pain with cough. Denies sob and n/v, not feeling hungry. - Current Medication List Current Medications: Active Medications Acetaminophen (Tylenol -) 650 mg NR Q4H PRN PRN Reason: PAIN 1-3 Last Admin: 05/16/18 21:41 Dose: 650 mg Bisacodyl (Dulcolax Suppository -) 10 mg RC DAILY [facility] Last Admin: 05/17/18 10:28 Dose: Not Given Budesonide/Formoterol Fumarate (Symbicort 80/4.5mcg -) 2 puff IH BID [facility] Last Admin: 05/17/18 10:29 Dose: Not Given Diazepam (Valium -) 5 mg GT TID [facility] Last Admin: 05/17/18 14:24 Dose: 5 mg Docusate Sodium (Colace Liquid -) 300 mg GT DAILY [facility] Last Admin: 05/17/18 10:27 Dose: Not Given Heparin Sodium (Porcine) (Heparin -) 5,000 unit SQ TID [facility] Last Admin: 05/17/18 14:24 Dose: Not Given Vancomycin HCl 1,250 mg/ (Dextrose) 250 mls @ 250 mls/2 hr IVPB Q24H [facility]; Protocol Last Admin: 05/17/18 11:52 Dose: 250 mls/2 hr Meropenem 1 gm/ Dextrose 100 mls @ 200 mls/hr IVPB Q8H-IV [facility] Last Admin: 05/17/18 10:28 Dose: 200 mls/hr Sodium Chloride (Normal Saline -) 1,000 mls @ 125 mls/hr IV ASDIR [facility] Last Admin: 05/16/18 21:40 Dose: Not Given Ipratropium [place] (Atrovent 0.02% Nebulizer -) 1 amp NEB Q6H PRN PRN Reason: DYSPEPSIA Stop: 05/22/18 12:05 Metoclopramide HCl (Reglan Oral Solution -) 10 mg GT BID [facility] Last Admin: 05/17/18 10:28 Dose: 10 mg Metoprolol Tartrate (Lopressor Injection -) 5 mg IVPUSH Q4H PRN PRN Reason: HYPERTENSION Morphine Sulfate (Morphine Sulfate) 1 mg IVPUSH Q4H PRN PRN Reason: PAIN LEVEL 7 - 10 Non-Formulary Medication (Methenamine/Sodium Salicylate [Cystex Plus Tablet]) 1 each GT DAILY [facility] Oxycodone HCl (Roxicodone -) 5 mg GT Q4H PRN PRN Reason: PAIN LEVEL 4 - 6 Polyethylene Glycol (Miralax (For Daily Use) -) 17 gm GT DAILY [facility] Last Admin: 05/17/18 10:27 Dose: Not Given Ranitidine HCl (Zantac -) 150 mg NR BID [facility] Last Admin: 05/17/18 10:29 Dose: 150 mg Senna (Senna -) 2 tab PO HS [facility] Last Admin: 05/16/18 21:41 Dose: 2 tab - Objective Vital Signs: Vital Signs Temperature 36.2 C L 05/17/18 05:00 Pulse Rate 95 H 05/17/18 05:00 Respiratory Rate 20 05/17/18 05:00 Blood Pressure 90/50 L 05/17/18 05:00 O2 Sat by Pulse Oximetry (%) 96 05/17/18 07:52 Constitutional: Yes: No Distress, Calm, Thin Cardiovascular: Yes: Regular Rate and Rhythm. No: Gallop, Murmur, Rub Respiratory: Yes: Regular, On Venti-Mask, Rhonchi (R>L). No: CTA Bilaterally, Rales, Wheezes Gastrointestinal: Yes: Soft, Hypoactive Bowel Sounds, Other (scaphoid). No: Distention, Tenderness Extremities: Yes: WNL Edema: No Labs: CBC, BMP 05/17/18 07:00 05/17/18 07:00 Problem List - Problems (1) Lung abscess Code(s): J85.2 - ABSCESS OF LUNG WITHOUT PNEUMONIA Qualifiers: Pulmonary abscess pneumonia presence: without pneumonia Laterality: left Lung location: upper lobe of lung Qualified Code(s): J85.2 - Abscess of lung without pneumonia (2) Severe sepsis Code(s): A41.9 - SEPSIS, UNSPECIFIED ORGANISM; R65.20 - SEVERE SEPSIS WITHOUT SEPTIC SHOCK (3) COPD (chronic obstructive pulmonary disease) Code(s): J44.9 - CHRONIC OBSTRUCTIVE PULMONARY DISEASE, UNSPECIFIED Qualifiers: COPD type: COPD with acute exacerbation Qualified Code(s): J44.1 - Chronic obstructive pulmonary disease with (acute) exacerbation (4) Constipation Code(s): K59.00 - CONSTIPATION, UNSPECIFIED Qualifiers: Constipation type: unspecified constipation type Qualified Code(s): K59.00 - Constipation, unspecified (5) Dysphagia Code(s): R13.10 - DYSPHAGIA, UNSPECIFIED (6) GERD (gastroesophageal reflux disease) Code(s): K21.9 - GASTRO-ESOPHAGEAL REFLUX DISEASE WITHOUT ESOPHAGITIS (7) Protein-calorie malnutrition, severe Code(s): E43 - UNSPECIFIED SEVERE PROTEIN-CALORIE MALNUTRITION Assessment/Plan (1) Lung abscess Assessment/Plan: -case d/w ID and pulmonary -CT surgery consulted, recommended IR to place drain -will consult IR to evaluate -continue vancomycin and merrem -poor prognosis Code(s): J85.2 - ABSCESS OF LUNG WITHOUT PNEUMONIA Qualifiers: Pulmonary abscess pneumonia presence: without pneumonia Laterality: left Lung location: upper lobe of lung Qualified Code(s): J85.2 - Abscess of lung without pneumonia (2) Severe sepsis Assessment/Plan: -continue hydration and IV antibiotics -leukocytosis improving but still significantly elevated Code(s): A41.9 - SEPSIS, UNSPECIFIED ORGANISM; R65.20 - SEVERE SEPSIS WITHOUT SEPTIC SHOCK (3) COPD (chronic obstructive pulmonary disease) Assessment/Plan: -appreciate pulmonary support -continue atrovent and symbicort Code(s): J44.9 - CHRONIC OBSTRUCTIVE PULMONARY DISEASE, UNSPECIFIED Qualifiers: COPD type: COPD with acute exacerbation Qualified Code(s): J44.1 - Chronic obstructive pulmonary disease with (acute) exacerbation (4) Constipation Assessment/Plan: -resolved Code(s): K59.00 - CONSTIPATION, UNSPECIFIED Qualifiers: Constipation type: unspecified constipation type Qualified Code(s): K59.00 - Constipation, unspecified (5) Dysphagia Assessment/Plan: -PEG tube in place -will hold TF secondary to possible aspiration Code(s): R13.10 - DYSPHAGIA, UNSPECIFIED (6) GERD (gastroesophageal reflux disease) Assessment/Plan: -continue zantac Code(s): K21.9 - GASTRO-ESOPHAGEAL REFLUX DISEASE WITHOUT ESOPHAGITIS (7) Protein-calorie malnutrition, severe Assessment/Plan: -holding TF at this time secondary to chronic aspiration causing worsening of respiratory status in patient Code(s): E43 - UNSPECIFIED SEVERE PROTEIN-CALORIE MALNUTRITION
--- NOTE | 2018-05-17 14:49 | PN ---
Progress Note, Physician History of Present Illness: patient becoming more weaker no other issues - Current Medication List Current Medications: Active Medications Acetaminophen (Tylenol -) 650 mg NR Q4H PRN PRN Reason: PAIN 1-3 Last Admin: 05/16/18 21:41 Dose: 650 mg Bisacodyl (Dulcolax Suppository -) 10 mg RC DAILY [facility] Last Admin: 05/17/18 10:28 Dose: Not Given Budesonide/Formoterol Fumarate (Symbicort 80/4.5mcg -) 2 puff IH BID [facility] Last Admin: 05/17/18 10:29 Dose: Not Given Diazepam (Valium -) 5 mg GT TID [facility] Last Admin: 05/17/18 14:24 Dose: 5 mg Docusate Sodium (Colace Liquid -) 300 mg GT DAILY [facility] Last Admin: 05/17/18 10:27 Dose: Not Given Heparin Sodium (Porcine) (Heparin -) 5,000 unit SQ TID [facility] Last Admin: 05/17/18 14:24 Dose: Not Given Vancomycin HCl 1,250 mg/ (Dextrose) 250 mls @ 250 mls/2 hr IVPB Q24H [facility]; Protocol Last Admin: 05/17/18 11:52 Dose: 250 mls/2 hr Meropenem 1 gm/ Dextrose 100 mls @ 200 mls/hr IVPB Q8H-IV [facility] Last Admin: 05/17/18 10:28 Dose: 200 mls/hr Sodium Chloride (Normal Saline -) 1,000 mls @ 125 mls/hr IV ASDIR [facility] Last Admin: 05/16/18 21:40 Dose: Not Given Ipratropium [place] (Atrovent 0.02% Nebulizer -) 1 amp NEB Q6H PRN PRN Reason: DYSPEPSIA Stop: 05/22/18 12:05 Metoclopramide HCl (Reglan Oral Solution -) 10 mg GT BID [facility] Last Admin: 05/17/18 10:28 Dose: 10 mg Metoprolol Tartrate (Lopressor Injection -) 5 mg IVPUSH Q4H PRN PRN Reason: HYPERTENSION Morphine Sulfate (Morphine Sulfate) 1 mg IVPUSH Q4H PRN PRN Reason: PAIN LEVEL 7 - 10 Non-Formulary Medication (Methenamine/Sodium Salicylate [Cystex Plus Tablet]) 1 each GT DAILY [facility] Oxycodone HCl (Roxicodone -) 5 mg GT Q4H PRN PRN Reason: PAIN LEVEL 4 - 6 Polyethylene Glycol (Miralax (For Daily Use) -) 17 gm GT DAILY [facility] Last Admin: 05/17/18 10:27 Dose: Not Given Ranitidine HCl (Zantac -) 150 mg NR BID [facility] Last Admin: 05/17/18 10:29 Dose: 150 mg Senna (Senna -) 2 tab PO HS [facility] Last Admin: 05/16/18 21:41 Dose: 2 tab - Objective Vital Signs: Vital Signs Temperature 97.2 F L 05/17/18 05:00 Pulse Rate 95 H 05/17/18 05:00 Respiratory Rate 20 05/17/18 05:00 Blood Pressure 90/50 L 05/17/18 05:00 O2 Sat by Pulse Oximetry (%) 95 05/17/18 14:35 Constitutional: Yes: No Distress, Calm Cardiovascular: Yes: S1, S2 Respiratory: Yes: Other (on face mask) Gastrointestinal: Yes: Normal Bowel Sounds, Soft Musculoskeletal: Yes: WNL Extremities: Yes: Other (contracted) Neurological: Yes: Alert, Oriented Psychiatric: Yes: Alert, Oriented Labs: CBC, BMP 05/17/18 07:00 05/17/18 07:00 Assessment/Plan Problem List - Problems (1) Cavitary lesion of lung Code(s): J98.4 - OTHER DISORDERS OF LUNG (2) COPD (chronic obstructive pulmonary disease) Code(s): J44.9 - CHRONIC OBSTRUCTIVE PULMONARY DISEASE, UNSPECIFIED Qualifiers: COPD type: COPD with acute exacerbation Qualified Code(s): J44.1 - Chronic obstructive pulmonary disease with (acute) exacerbation (3) Constipation Code(s): K59.00 - CONSTIPATION, UNSPECIFIED Qualifiers: Constipation type: unspecified constipation type Qualified Code(s): K59.00 - Constipation, unspecified (4) Dysphagia Code(s): R13.10 - DYSPHAGIA, UNSPECIFIED (5) GERD (gastroesophageal reflux disease) Code(s): K21.9 - GASTRO-ESOPHAGEAL REFLUX DISEASE WITHOUT ESOPHAGITIS (6) Protein-calorie malnutrition, severe Code(s): E43 - UNSPECIFIED SEVERE PROTEIN-CALORIE MALNUTRITION plan continue abx nutrition thoracic surgery rest as per the team pul on case
[2018-05-17] MEDS: SODIUM CHLORIDE 1,000 ML IV SCH (17:29)
[2018-05-17] MEDS: oxyCODONE HCL 5 MG TABLET GT PRN (17:39)
[2018-05-17] MEDS: ACETAMINOPHEN 325 MG TABLET (FP) NR PRN (17:40)
[2018-05-17] MEDS: SENNOSIDES 8.6MG TABLET (FP) PO SCH (22:36)
[2018-05-18] MEDS: MEROPENEM 1 GM in DEXTROSE 5%-WATER 100 ML IVPB SCH ×3 (03:29→17:22)
[2018-05-18] MEDS: HEPARIN NA (PORCINE) 5,000 UNITS/ML 1ML VIAL SQ SCH ×3 (06:39→21:44)
[2018-05-18] MEDS: diazePAM 5 MG TABLET GT SCH ×3 (06:39→22:04)
[2018-05-18] MEDS ORDERED: PT OWN MED DRAWER 7, Y5N ONE ×3 (06:53→21:48)
[2018-05-18] MEDS: VANCOMYCIN 1,250 MG in DEXTROSE 5%-WATER - 250 ML IVPB SCH (09:45)
--- NOTE | 2018-05-18 11:04 | PN ---
Progress Note (short form) - Note Progress Note: s: sob a little less, no cp palps dizzy o: Vital Signs Period Temp Pulse Resp BP Sys/Marroquin Pulse Ox Last 24 Hr 97 F-98.3 F 68-128 20-20 83-150/54-90 92-100 nad no jvd scattered rhonci, nl eff rrr s1s2 no mrg no le e/c/c no jaundice diaphoresis aaox3 abd nt nd pos bs Current Medications Generic Name Dose Route Start Last Admin Trade Name Freq PRN Reason Stop Dose Admin Acetaminophen 650 mg 05/14/18 17:04 05/17/18 17:40 Tylenol - NR 650 mg Q4H PRN Administration PAIN 1-3 Bisacodyl 10 mg 05/15/18 10:00 05/17/18 10:28 Dulcolax Suppository - RC Not Given DAILY [facility] Budesonide/Formoterol Fumarate 2 puff 05/15/18 22:00 05/17/18 22:36 Symbicort 80/4.5mcg - IH Not Given BID [facility] Diazepam 5 mg 05/14/18 22:00 05/18/18 06:39 Valium - GT Not Given TID [facility] Docusate Sodium 300 mg 05/15/18 10:00 05/17/18 17:28 Colace Liquid - GT 300 mg DAILY [facility] Administration Heparin Sodium (Porcine) 5,000 unit 05/15/18 22:00 05/18/18 06:39 Heparin - SQ Not Given TID [facility] Vancomycin HCl 1,250 mg/ 250 mls @ 250 mls/2 hr 05/15/18 10:45 05/17/18 11:52 Dextrose IVPB 250 mls/2 hr Q24H [facility] Administration Protocol Meropenem 1 gm/ Dextrose 100 mls @ 200 mls/hr 05/15/18 11:00 05/18/18 03:29 IVPB 200 mls/hr Q8H-IV [facility] Administration Sodium Chloride 1,000 mls @ 125 mls/hr 05/15/18 17:16 05/17/18 17:29 Normal Saline - IV Not Given ASDIR [facility] Ipratropium [place] 1 amp 05/15/18 12:04 Atrovent 0.02% Nebulizer - NEB 05/22/18 12:05 Q6H PRN DYSPEPSIA Metoclopramide HCl 10 mg 05/14/18 22:00 05/17/18 22:36 Reglan Oral Solution - GT 10 mg BID [facility] Administration Metoprolol Tartrate 5 mg 05/15/18 12:06 05/17/18 18:00 Lopressor Injection - IVPUSH 5 mg Q4H PRN Administration HYPERTENSION Morphine Sulfate 1 mg 05/17/18 14:22 Morphine Sulfate IVPUSH Q4H PRN PAIN LEVEL 7 - 10 Non-Formulary Medication 1 each 05/15/18 10:00 Methenamine/Sodium Salicylate [Cystex Plus Tablet] GT DAILY [facility] Oxycodone HCl 5 mg 05/17/18 14:26 05/17/18 17:39 Roxicodone - GT 5 mg Q4H PRN Administration PAIN LEVEL 4 - 6 Polyethylene Glycol 17 gm 05/15/18 10:00 05/17/18 17:30 Miralax (For Daily Use) - GT Not Given DAILY [facility] Ranitidine HCl 150 mg 05/14/18 22:00 05/17/18 22:36 Zantac - NR 150 mg BID [facility] Administration Senna 2 tab 05/14/18 22:00 05/17/18 22:36 Senna - PO 2 tab HS [facility] Administration CBC, BMP 05/17/18 07:00 05/17/18 07:00 ecg: sinus tach, nl intervals, irbbb echo 04/2018: tds; nl lv/rv, mod tr, nl rvsp ct chest: rul mass/fluid collection tele: sr a/p: 62 m hx muscular dystonia, [place], [place] resident, [place] for [place] cxr/ pna. pna: -abx per ID -IR eval for lung abscess drainage sinus tachy: -echo and ecg unremarkable -tele showed sinus tach, no arrhythmias -sinus tach 2/2 pna/resp distress. Continue to treat underlying issues, no specific tx needed for HR at this time. dc tele
[2018-05-18] MEDS: DOCUSATE NA 100 MG/10 ML UNIT-DOSE CUPS GT SCH (11:05)
[2018-05-18] MEDS: BISACODYL 10 MG SUPP.RECT RC SCH (11:05)
[2018-05-18] MEDS: POLYETHYLENE GLYCOL 3350 119 GM BTL GT SCH (11:06)
[2018-05-18] MEDS: METOCLOPRAMIDE HCL 5 MG/5 ML UNIT DOSE CUP GT SCH ×2 (11:06→22:03)
[2018-05-18] MEDS: BUDESONIDE/FORMETEROL FUMARATE 80/4.5 mcg INHALER IH SCH ×2 (11:06→21:45)
[2018-05-18] MEDS: RANITIDINE HCL 150 MG TABLET (FP) NR SCH ×2 (11:06→22:04)
--- NOTE | 2018-05-18 12:35 | PN ---
Progress Note (short form) - Note Progress Note: PULMONARY WELL KNOWN TO OUR SERVICE WEAK/ON NON RE-BREATHER PALE DIMINISHED B/L BREATH SOUNDS S1S2 BS+ NO EDEMA LABS/MEDS/NOTES/IMAGES REVIEWED (1) Lung abscess Code(s): J85.2 - ABSCESS OF LUNG WITHOUT PNEUMONIA Qualifiers: Pulmonary abscess pneumonia presence: without pneumonia Laterality: left Lung location: upper lobe of lung Qualified Code(s): J85.2 - Abscess of lung without pneumonia (2) Aspiration of formula Code(s): P24.30 - ASPIRAT OF MILK AND REGURGITATED FOOD W/O RESP SYMP (3) COPD (chronic obstructive pulmonary disease) Code(s): J44.9 - CHRONIC OBSTRUCTIVE PULMONARY DISEASE, UNSPECIFIED Qualifiers: COPD type: COPD with acute exacerbation Qualified Code(s): J44.1 - Chronic obstructive pulmonary disease with (acute) exacerbation (4) Cavitary lesion of lung Code(s): J98.4 - OTHER DISORDERS OF LUNG (5) Dysphagia Code(s): R13.10 - DYSPHAGIA, UNSPECIFIED (6) Dystonia Code(s): G24.9 - DYSTONIA, UNSPECIFIED (7) Empyema lung Code(s): J86.9 - PYOTHORAX WITHOUT FISTULA (8) GERD (gastroesophageal reflux disease) Code(s): K21.9 - GASTRO-ESOPHAGEAL REFLUX DISEASE WITHOUT ESOPHAGITIS (9) HTN (hypertension) Code(s): I10 - ESSENTIAL (PRIMARY) HYPERTENSION Qualifiers: (10) Hypoxemia Code(s): R09.02 - HYPOXEMIA (11) Lung mass Code(s): R91.8 - OTHER NONSPECIFIC ABNORMAL FINDING OF LUNG FIELD (12) Neurogenic bladder Code(s): N31.9 - NEUROMUSCULAR DYSFUNCTION OF BLADDER, UNSPECIFIED (13) Pneumonia Code(s): J18.9 - PNEUMONIA, UNSPECIFIED ORGANISM Qualifiers: (14) Protein-calorie malnutrition, severe Code(s): E43 - UNSPECIFIED SEVERE PROTEIN-CALORIE MALNUTRITION (15) Sinus tachycardia Code(s): R00.0 - TACHYCARDIA, UNSPECIFIED (16) Sepsis Code(s): A41.9 - SEPSIS, UNSPECIFIED ORGANISM Assessment/Plan Aspiration precautions 100% NRBM for now Possible Ir for drainage catheter ABX per ID BD TX PRN Monitor off systemic steroids for now IVF resuscitation increased Cardiac telemetry monitoring pain meds Needs palliative care consult Will follow R LUCIAL MD
--- NOTE | 2018-05-18 15:55 | PN ---
Progress Note, Physician History of Present Illness: awaiting thoracic surgery note patient weak still requiring resp support - Current Medication List Current Medications: Active Medications Acetaminophen (Tylenol -) 650 mg NR Q4H PRN PRN Reason: PAIN 1-3 Last Admin: 05/17/18 17:40 Dose: 650 mg Bisacodyl (Dulcolax Suppository -) 10 mg RC DAILY [facility] Last Admin: 05/18/18 11:05 Dose: Not Given Budesonide/Formoterol Fumarate (Symbicort 80/4.5mcg -) 2 puff IH BID [facility] Last Admin: 05/18/18 11:06 Dose: Not Given Diazepam (Valium -) 5 mg GT TID [facility] Last Admin: 05/18/18 14:36 Dose: 5 mg Docusate Sodium (Colace Liquid -) 300 mg GT DAILY [facility] Last Admin: 05/18/18 11:05 Dose: 300 mg Heparin Sodium (Porcine) (Heparin -) 5,000 unit SQ TID [facility] Last Admin: 05/18/18 14:35 Dose: Not Given Vancomycin HCl 1,250 mg/ (Dextrose) 250 mls @ 250 mls/2 hr IVPB Q24H [facility]; Protocol Last Admin: 05/18/18 09:45 Dose: 250 mls/2 hr Meropenem 1 gm/ Dextrose 100 mls @ 200 mls/hr IVPB Q8H-IV [facility] Last Admin: 05/18/18 11:05 Dose: 200 mls/hr Sodium Chloride (Normal Saline -) 1,000 mls @ 125 mls/hr IV ASDIR [facility] Last Admin: 05/17/18 17:29 Dose: Not Given Ipratropium [place] (Atrovent 0.02% Nebulizer -) 1 amp NEB Q6H PRN PRN Reason: DYSPEPSIA Stop: 05/22/18 12:05 Metoclopramide HCl (Reglan Oral Solution -) 10 mg GT BID [facility] Last Admin: 05/18/18 11:06 Dose: Not Given Metoprolol Tartrate (Lopressor Injection -) 5 mg IVPUSH Q4H PRN PRN Reason: HYPERTENSION Last Admin: 05/17/18 18:00 Dose: 5 mg Morphine Sulfate (Morphine Sulfate) 1 mg IVPUSH Q4H PRN PRN Reason: PAIN LEVEL 7 - 10 Non-Formulary Medication (Methenamine/Sodium Salicylate [Cystex Plus Tablet]) 1 each GT DAILY [facility] Oxycodone HCl (Roxicodone -) 5 mg GT Q4H PRN PRN Reason: PAIN LEVEL 4 - 6 Last Admin: 05/17/18 17:39 Dose: 5 mg Polyethylene Glycol (Miralax (For Daily Use) -) 17 gm GT DAILY [facility] Last Admin: 05/18/18 11:06 Dose: Not Given Ranitidine HCl (Zantac -) 150 mg NR BID [facility] Last Admin: 05/18/18 11:06 Dose: 150 mg Senna (Senna -) 2 tab PO HS [facility] Last Admin: 05/17/18 22:36 Dose: 2 tab - Objective Vital Signs: Vital Signs Temperature 98 F 05/18/18 09:30 Pulse Rate 68 05/18/18 09:30 Respiratory Rate 20 05/18/18 09:30 Blood Pressure 96/54 L 05/18/18 09:30 O2 Sat by Pulse Oximetry (%) 100 05/18/18 09:30 Constitutional: Yes: No Distress, Other Cardiovascular: Yes: S1, S2 Respiratory: Yes: Poor Air Entry, Other (on mask) Gastrointestinal: Yes: Normal Bowel Sounds, Soft Musculoskeletal: Yes: WNL Extremities: Yes: Other Neurological: Yes: Alert, Oriented Psychiatric: Yes: Alert, Oriented Labs: CBC, BMP 05/17/18 07:00 05/17/18 07:00 Assessment/Plan Problem List - Problems (1) Cavitary lesion of lung Code(s): J98.4 - OTHER DISORDERS OF LUNG (2) COPD (chronic obstructive pulmonary disease) Code(s): J44.9 - CHRONIC OBSTRUCTIVE PULMONARY DISEASE, UNSPECIFIED Qualifiers: COPD type: COPD with acute exacerbation Qualified Code(s): J44.1 - Chronic obstructive pulmonary disease with (acute) exacerbation (3) Constipation Code(s): K59.00 - CONSTIPATION, UNSPECIFIED Qualifiers: Constipation type: unspecified constipation type Qualified Code(s): K59.00 - Constipation, unspecified (4) Dysphagia Code(s): R13.10 - DYSPHAGIA, UNSPECIFIED (5) GERD (gastroesophageal reflux disease) Code(s): K21.9 - GASTRO-ESOPHAGEAL REFLUX DISEASE WITHOUT ESOPHAGITIS (6) Protein-calorie malnutrition, severe Code(s): E43 - UNSPECIFIED SEVERE PROTEIN-CALORIE MALNUTRITION plan continue abx nutrition thoracic surgery if surgery cannot be done needs drainage
--- NOTE | 2018-05-18 16:46 | PN ---
Progress Note, Physician Chief Complaint: Mr Nash says he feels "not good", complains of pain. Says he is feeling slightly hungry. - Current Medication List Current Medications: Active Medications Acetaminophen (Tylenol -) 650 mg NR Q4H PRN PRN Reason: PAIN 1-3 Last Admin: 05/17/18 17:40 Dose: 650 mg Bisacodyl (Dulcolax Suppository -) 10 mg RC DAILY [facility] Last Admin: 05/18/18 11:05 Dose: Not Given Budesonide/Formoterol Fumarate (Symbicort 80/4.5mcg -) 2 puff IH BID [facility] Last Admin: 05/18/18 11:06 Dose: Not Given Diazepam (Valium -) 5 mg GT TID [facility] Last Admin: 05/18/18 14:36 Dose: 5 mg Docusate Sodium (Colace Liquid -) 300 mg GT DAILY [facility] Last Admin: 05/18/18 11:05 Dose: 300 mg Heparin Sodium (Porcine) (Heparin -) 5,000 unit SQ TID [facility] Last Admin: 05/18/18 14:35 Dose: Not Given Vancomycin HCl 1,250 mg/ (Dextrose) 250 mls @ 250 mls/2 hr IVPB Q24H [facility]; Protocol Last Admin: 05/18/18 09:45 Dose: 250 mls/2 hr Meropenem 1 gm/ Dextrose 100 mls @ 200 mls/hr IVPB Q8H-IV [facility] Last Admin: 05/18/18 11:05 Dose: 200 mls/hr Sodium Chloride (Normal Saline -) 1,000 mls @ 125 mls/hr IV ASDIR [facility] Last Admin: 05/17/18 17:29 Dose: Not Given Ipratropium [place] (Atrovent 0.02% Nebulizer -) 1 amp NEB Q6H PRN PRN Reason: DYSPEPSIA Stop: 05/22/18 12:05 Metoclopramide HCl (Reglan Oral Solution -) 10 mg GT BID [facility] Last Admin: 05/18/18 11:06 Dose: Not Given Metoprolol Tartrate (Lopressor Injection -) 5 mg IVPUSH Q4H PRN PRN Reason: HYPERTENSION Last Admin: 05/17/18 18:00 Dose: 5 mg Morphine Sulfate (Morphine Sulfate) 1 mg IVPUSH Q4H PRN PRN Reason: PAIN LEVEL 7 - 10 Non-Formulary Medication (Methenamine/Sodium Salicylate [Cystex Plus Tablet]) 1 each GT DAILY [facility] Oxycodone HCl (Roxicodone -) 5 mg GT Q4H PRN PRN Reason: PAIN LEVEL 4 - 6 Last Admin: 05/17/18 17:39 Dose: 5 mg Polyethylene Glycol (Miralax (For Daily Use) -) 17 gm GT DAILY [facility] Last Admin: 05/18/18 11:06 Dose: Not Given Ranitidine HCl (Zantac -) 150 mg NR BID [facility] Last Admin: 05/18/18 11:06 Dose: 150 mg Senna (Senna -) 2 tab PO HS [facility] Last Admin: 05/17/18 22:36 Dose: 2 tab - Objective Vital Signs: Vital Signs Temperature 36.6 C 05/18/18 09:30 Pulse Rate 68 05/18/18 09:30 Respiratory Rate 20 05/18/18 09:30 Blood Pressure 96/54 L 05/18/18 09:30 O2 Sat by Pulse Oximetry (%) 100 05/18/18 09:30 Constitutional: Yes: No Distress, Thin Cardiovascular: Yes: Regular Rate and Rhythm. No: Gallop, Murmur, Rub Respiratory: Yes: Regular, On Nasal O2, Rhonchi. No: CTA Bilaterally, Rales, Wheezes Gastrointestinal: Yes: Normal Bowel Sounds, Soft. No: Distention, Tenderness Extremities: Yes: WNL Edema: No Labs: CBC, BMP 05/17/18 07:00 05/17/18 07:00 Problem List - Problems (1) Lung abscess Code(s): J85.2 - ABSCESS OF LUNG WITHOUT PNEUMONIA Qualifiers: Pulmonary abscess pneumonia presence: without pneumonia Laterality: left Lung location: upper lobe of lung Qualified Code(s): J85.2 - Abscess of lung without pneumonia (2) Severe sepsis Code(s): A41.9 - SEPSIS, UNSPECIFIED ORGANISM; R65.20 - SEVERE SEPSIS WITHOUT SEPTIC SHOCK (3) COPD (chronic obstructive pulmonary disease) Code(s): J44.9 - CHRONIC OBSTRUCTIVE PULMONARY DISEASE, UNSPECIFIED Qualifiers: COPD type: COPD with acute exacerbation Qualified Code(s): J44.1 - Chronic obstructive pulmonary disease with (acute) exacerbation (4) Constipation Code(s): K59.00 - CONSTIPATION, UNSPECIFIED Qualifiers: Constipation type: unspecified constipation type Qualified Code(s): K59.00 - Constipation, unspecified (5) Dysphagia Code(s): R13.10 - DYSPHAGIA, UNSPECIFIED (6) GERD (gastroesophageal reflux disease) Code(s): K21.9 - GASTRO-ESOPHAGEAL REFLUX DISEASE WITHOUT ESOPHAGITIS (7) Protein-calorie malnutrition, severe Code(s): E43 - UNSPECIFIED SEVERE PROTEIN-CALORIE MALNUTRITION Assessment/Plan (1) Lung abscess Assessment/Plan: -case d/w ID and pulmonary -CT surgery consulted, recommended IR to place drain -consult IR to evaluate placed -continue vancomycin and merrem -poor prognosis Code(s): J85.2 - ABSCESS OF LUNG WITHOUT PNEUMONIA Qualifiers: Pulmonary abscess pneumonia presence: without pneumonia Laterality: left Lung location: upper lobe of lung Qualified Code(s): J85.2 - Abscess of lung without pneumonia (2) Severe sepsis Assessment/Plan: -continue hydration and IV antibiotics Code(s): A41.9 - SEPSIS, UNSPECIFIED ORGANISM; R65.20 - SEVERE SEPSIS WITHOUT SEPTIC SHOCK (3) COPD (chronic obstructive pulmonary disease) Assessment/Plan: -appreciate pulmonary support -continue atrovent and symbicort Code(s): J44.9 - CHRONIC OBSTRUCTIVE PULMONARY DISEASE, UNSPECIFIED Qualifiers: COPD type: COPD with acute exacerbation Qualified Code(s): J44.1 - Chronic obstructive pulmonary disease with (acute) exacerbation (4) Constipation Assessment/Plan: -resolved Code(s): K59.00 - CONSTIPATION, UNSPECIFIED Qualifiers: Constipation type: unspecified constipation type Qualified Code(s): K59.00 - Constipation, unspecified (5) Dysphagia Assessment/Plan: -PEG tube in place Code(s): R13.10 - DYSPHAGIA, UNSPECIFIED (6) GERD (gastroesophageal reflux disease) Assessment/Plan: -continue zantac Code(s): K21.9 - GASTRO-ESOPHAGEAL REFLUX DISEASE WITHOUT ESOPHAGITIS (7) Protein-calorie malnutrition, severe Assessment/Plan: -patient stating he is becoming hungry -will start TF at 10mL/hr -head of bed must be above 45 degrees while TF running to minimize aspiration Code(s): E43 - UNSPECIFIED SEVERE PROTEIN-CALORIE MALNUTRITION
[2018-05-18] MEDS: SODIUM CHLORIDE 1,000 ML IV SCH (17:22)
[2018-05-18] MEDS: oxyCODONE HCL 5 MG TABLET GT PRN (17:22)
[2018-05-18] MEDS: SENNOSIDES 8.6MG TABLET (FP) PO SCH (22:04)
[2018-05-19] MEDS ORDERED: PT OWN MED DRAWER 7, Y5N ONE ×3 (01:35→23:10)
[2018-05-19] MEDS: MEROPENEM 1 GM in DEXTROSE 5%-WATER 100 ML IVPB SCH ×3 (01:57→17:04)
[2018-05-19] MEDS: HEPARIN NA (PORCINE) 5,000 UNITS/ML 1ML VIAL SQ SCH (06:37)
[2018-05-19] MEDS: diazePAM 5 MG TABLET GT SCH ×3 (06:42→23:06)
[2018-05-19 06:45] LABS: BASO % 0.1 % (0-2.0); EOS % 0.2 % (0-4.5); HEMATOCRIT 27.1 % (35.4-49); HEMOGLOBIN 8.5 GM/dL (11.7-16.9); LYMPH % 4.1 % (8-40); MCH 30.5 pg (25.7-33.7); MCHC 31.5 g/dl (32.0-35.9); MEAN CELL VOLUME 96.8 fl (80-96); MEAN PLT VOLUME 7.1 fl (7.5-11.1); MONO % 7.5 % (3.8-10.2); NEUT % 88.1 % (42.8-82.8); PLATELET COUNT 398 K/MM3 (134-434); RDW 14.6 % (11.9-15.9); WHITE BLOOD COUNT 14.8 K/mm3 (4.0-10.0)
[2018-05-19 07:27] LABS: ANION GAP 5 MMOL/L (8-16); BLOOD UREA NITROGEN 13 mg/dL (7-18); CALCIUM 7.9 mg/dL (8.5-10.1); CHLORIDE 108 mmol/L (98-107); CO2 30 mmol/L (21-32); CREATININE 0.2 mg/dL (0.55-1.3); GLUCOSE,RANDOM 70 mg/dL (74-106); PHOSPHOROUS 2.2 mg/dL (2.5-4.9); POTASSIUM 3.8 mmol/L (3.5-5.1); SODIUM 143 mmol/L (136-145)
--- NOTE | 2018-05-19 09:33 | PN ---
Progress Note, Physician Chief Complaint: sob History of Present Illness: still sob. NRB mask on. coughing. no palpitations, syncope, leg swelling - Current Medication List Current Medications: Active Medications Acetaminophen (Tylenol -) 650 mg NR Q4H PRN PRN Reason: PAIN 1-3 Last Admin: 05/17/18 17:40 Dose: 650 mg Bisacodyl (Dulcolax Suppository -) 10 mg RC DAILY [facility] Last Admin: 05/18/18 11:05 Dose: Not Given Budesonide/Formoterol Fumarate (Symbicort 80/4.5mcg -) 2 puff IH BID [facility] Last Admin: 05/18/18 21:45 Dose: Not Given Diazepam (Valium -) 5 mg GT TID [facility] Last Admin: 05/19/18 06:42 Dose: Not Given Docusate Sodium (Colace Liquid -) 300 mg GT DAILY [facility] Last Admin: 05/18/18 11:05 Dose: 300 mg Heparin Sodium (Porcine) (Heparin -) 5,000 unit SQ TID [facility] Last Admin: 05/19/18 06:37 Dose: Not Given Vancomycin HCl 1,250 mg/ (Dextrose) 250 mls @ 250 mls/2 hr IVPB Q24H [facility]; Protocol Last Admin: 05/18/18 09:45 Dose: 250 mls/2 hr Meropenem 1 gm/ Dextrose 100 mls @ 200 mls/hr IVPB Q8H-IV [facility] Last Admin: 05/19/18 01:57 Dose: 200 mls/hr Sodium Chloride (Normal Saline -) 1,000 mls @ 125 mls/hr IV ASDIR [facility] Last Admin: 05/18/18 17:22 Dose: 125 mls/hr Ipratropium [place] (Atrovent 0.02% Nebulizer -) 1 amp NEB Q6H PRN PRN Reason: DYSPEPSIA Stop: 05/22/18 12:05 Metoclopramide HCl (Reglan Oral Solution -) 10 mg GT BID [facility] Last Admin: 05/18/18 22:03 Dose: 10 mg Metoprolol Tartrate (Lopressor Injection -) 5 mg IVPUSH Q4H PRN PRN Reason: HYPERTENSION Last Admin: 05/17/18 18:00 Dose: 5 mg Morphine Sulfate (Morphine Sulfate) 1 mg IVPUSH Q4H PRN PRN Reason: PAIN LEVEL 7 - 10 Non-Formulary Medication (Methenamine/Sodium Salicylate [Cystex Plus Tablet]) 1 each GT DAILY [facility] Oxycodone HCl (Roxicodone -) 5 mg GT Q4H PRN PRN Reason: PAIN LEVEL 4 - 6 Last Admin: 05/18/18 17:22 Dose: 5 mg Polyethylene Glycol (Miralax (For Daily Use) -) 17 gm GT DAILY [facility] Last Admin: 05/18/18 11:06 Dose: Not Given Ranitidine HCl (Zantac -) 150 mg NR BID [facility] Last Admin: 05/18/18 22:04 Dose: 150 mg Senna (Senna -) 2 tab PO HS [facility] Last Admin: 05/18/18 22:04 Dose: 2 tab - Objective Vital Signs: Vital Signs Temperature 97.2 F L 05/19/18 06:00 Pulse Rate 99 H 05/19/18 06:00 Respiratory Rate 20 05/19/18 06:00 Blood Pressure 94/62 05/19/18 06:00 O2 Sat by Pulse Oximetry (%) 100 05/19/18 07:47 Constitutional: Yes: No Distress, Calm, Cachectic Cardiovascular: Yes: Regular Rate and Rhythm, S1, S2. No: JVD, Gallop, Murmur Respiratory: Yes: Regular, Rales, Rhonchi. No: Accessory Muscle Use Extremities: No: Cold Edema: No Neurological: Yes: Alert. No: Seizure Psychiatric: No: Agitated Labs: CBC, BMP 05/19/18 05:30 05/19/18 05:30 Assessment/Plan ecg: sinus tach, nl intervals, irbbb echo 04/2018: tds; nl lv/rv, mod tr, nl rvsp ct chest: rul mass/fluid collection tele: sr a/p: 62 m hx muscular dystonia, [place], sent from [place] for ab[place] cxr/ pna. pna: -abx per ID -IR eval for lung abscess drainage sinus tachy: -echo and ecg unremarkable -tele showed sinus tach, no arrhythmias -sinus tach 2/2 pna/resp distress. Continue to treat underlying issues, no specific tx needed for HR at this time. dc tele
[2018-05-19] MEDS ORDERED: DEXTROSE 5%-0.45% SALINE 1,000 ML IV SCH ×2 (10:30→17:27)
[2018-05-19] MEDS: DOCUSATE NA 100 MG/10 ML UNIT-DOSE CUPS GT SCH (10:49)
[2018-05-19] MEDS: BISACODYL 10 MG SUPP.RECT RC SCH (10:49)
[2018-05-19] MEDS: POLYETHYLENE GLYCOL 3350 119 GM BTL GT SCH (10:50)
[2018-05-19] MEDS: BUDESONIDE/FORMETEROL FUMARATE 80/4.5 mcg INHALER IH SCH ×2 (10:50→23:06)
[2018-05-19] MEDS: METOCLOPRAMIDE HCL 5 MG/5 ML UNIT DOSE CUP GT SCH ×2 (10:50→23:16)
[2018-05-19] MEDS: RANITIDINE HCL 150 MG TABLET (FP) NR SCH ×2 (10:51→23:15)
--- NOTE | 2018-05-19 11:02 | PN ---
Progress Note, Physician History of Present Illness: PULMONARY LETHARGIC ON 100%NRM - Current Medication List Current Medications: Active Medications Acetaminophen (Tylenol -) 650 mg NR Q4H PRN PRN Reason: PAIN 1-3 Last Admin: 05/17/18 17:40 Dose: 650 mg Bisacodyl (Dulcolax Suppository -) 10 mg RC DAILY [facility] Last Admin: 05/19/18 10:49 Dose: Not Given Budesonide/Formoterol Fumarate (Symbicort 80/4.5mcg -) 2 puff IH BID [facility] Last Admin: 05/19/18 10:50 Dose: Not Given Diazepam (Valium -) 5 mg GT TID [facility] Last Admin: 05/19/18 06:42 Dose: Not Given Docusate Sodium (Colace Liquid -) 300 mg GT DAILY [facility] Last Admin: 05/19/18 10:49 Dose: Not Given Heparin Sodium (Porcine) (Heparin -) 5,000 unit SQ TID [facility] Last Admin: 05/19/18 06:37 Dose: Not Given Vancomycin HCl 1,250 mg/ (Dextrose) 250 mls @ 250 mls/2 hr IVPB Q24H [facility]; Protocol Last Admin: 05/18/18 09:45 Dose: 250 mls/2 hr Meropenem 1 gm/ Dextrose 100 mls @ 200 mls/hr IVPB Q8H-IV [facility] Last Admin: 05/19/18 10:50 Dose: 200 mls/hr Sodium Chloride (Normal Saline -) 1,000 mls @ 125 mls/hr IV ASDIR [facility] Last Admin: 05/18/18 17:22 Dose: 125 mls/hr Dextrose/Sodium Chloride (D5-1/2ns -) 1,000 mls @ 83 mls/hr IV ASDIR [facility] Last Admin: 05/19/18 10:51 Dose: 83 mls/hr Ipratropium [place] (Atrovent 0.02% Nebulizer -) 1 amp NEB Q6H PRN PRN Reason: DYSPEPSIA Stop: 05/22/18 12:05 Metoclopramide HCl (Reglan Oral Solution -) 10 mg GT BID [facility] Last Admin: 05/19/18 10:50 Dose: Not Given Metoprolol Tartrate (Lopressor Injection -) 5 mg IVPUSH Q4H PRN PRN Reason: HYPERTENSION Last Admin: 05/17/18 18:00 Dose: 5 mg Morphine Sulfate (Morphine Sulfate) 1 mg IVPUSH Q4H PRN PRN Reason: PAIN LEVEL 7 - 10 Non-Formulary Medication (Methenamine/Sodium Salicylate [Cystex Plus Tablet]) 1 each GT DAILY [facility] Oxycodone HCl (Roxicodone -) 5 mg GT Q4H PRN PRN Reason: PAIN LEVEL 4 - 6 Last Admin: 05/18/18 17:22 Dose: 5 mg Polyethylene Glycol (Miralax (For Daily Use) -) 17 gm GT DAILY [facility] Last Admin: 05/19/18 10:50 Dose: Not Given Ranitidine HCl (Zantac -) 150 mg NR BID [facility] Last Admin: 05/19/18 10:51 Dose: 150 mg Senna (Senna -) 2 tab PO HS [facility] Last Admin: 05/18/18 22:04 Dose: 2 tab - Objective Vital Signs: Vital Signs Temperature 97.2 F L 05/19/18 06:00 Pulse Rate 99 H 05/19/18 06:00 Respiratory Rate 20 05/19/18 06:00 Blood Pressure 94/62 05/19/18 06:00 O2 Sat by Pulse Oximetry (%) 100 05/19/18 07:47 Constitutional: Yes: Cachectic, Other (LETHARGIC) Eyes: Yes: WNL HENT: Yes: WNL Neck: Yes: WNL Cardiovascular: Yes: Regular Rate and Rhythm, S1, S2 Respiratory: Yes: Diminished Gastrointestinal: Yes: Normal Bowel Sounds, Soft Extremities: Yes: WNL Edema: No Labs: CBC, BMP 05/19/18 05:30 05/19/18 05:30 Assessment/Plan (1) Lung abscess Code(s): J85.2 - ABSCESS OF LUNG WITHOUT PNEUMONIA Qualifiers: Pulmonary abscess pneumonia presence: without pneumonia Laterality: left Lung location: upper lobe of lung Qualified Code(s): J85.2 - Abscess of lung without pneumonia (2) Aspiration of formula Code(s): P24.30 - ASPIRAT OF MILK AND REGURGITATED FOOD W/O RESP SYMP (3) COPD (chronic obstructive pulmonary disease) Code(s): J44.9 - CHRONIC OBSTRUCTIVE PULMONARY DISEASE, UNSPECIFIED Qualifiers: COPD type: COPD with acute exacerbation Qualified Code(s): J44.1 - Chronic obstructive pulmonary disease with (acute) exacerbation (4) Cavitary lesion of lung Code(s): J98.4 - OTHER DISORDERS OF LUNG (5) Dysphagia Code(s): R13.10 - DYSPHAGIA, UNSPECIFIED (6) Dystonia Code(s): G24.9 - DYSTONIA, UNSPECIFIED (7) Empyema lung Code(s): J86.9 - PYOTHORAX WITHOUT FISTULA (8) GERD (gastroesophageal reflux disease) Code(s): K21.9 - GASTRO-ESOPHAGEAL REFLUX DISEASE WITHOUT ESOPHAGITIS (9) HTN (hypertension) Code(s): I10 - ESSENTIAL (PRIMARY) HYPERTENSION Qualifiers: (10) Hypoxemia Code(s): R09.02 - HYPOXEMIA (11) Lung mass Code(s): R91.8 - OTHER NONSPECIFIC ABNORMAL FINDING OF LUNG FIELD (12) Neurogenic bladder Code(s): N31.9 - NEUROMUSCULAR DYSFUNCTION OF BLADDER, UNSPECIFIED (13) Pneumonia Code(s): J18.9 - PNEUMONIA, UNSPECIFIED ORGANISM Qualifiers: (14) Protein-calorie malnutrition, severe Code(s): E43 - UNSPECIFIED SEVERE PROTEIN-CALORIE MALNUTRITION (15) Sinus tachycardia Code(s): R00.0 - TACHYCARDIA, UNSPECIFIED (16) Sepsis Code(s): A41.9 - SEPSIS, UNSPECIFIED ORGANISM Assessment/Plan Aspiration precautions 100% NRBM for now Ir for drainage catheter ABX per ID BD TX PRN IVF resuscitation increased pain meds Needs palliative care consult DR MURDOCK
[2018-05-19 11:04] LABS: INR 1.21 (0.83-1.09); PROTHROMBIN TIME (PATIENT) 14.3 SEC (9.7-13.0)
--- NOTE | 2018-05-19 11:38 | CONSULT ---
Consult Consult Specialty:: Thoracic Surgery Referred by:: Pulmonary Reason for Consultation:: Lung abscess - History of Present Illness Chief Complaint: Dypsnea, abnormal film History of Present Illness: 62M with dystonia, p/w sob at [place], fever, and found to have lung abscess on imaging. - History Source History Provided By: Medical Record Limitations to Obtaining History: Physical Impairment - Past Medical History [employer] AFF[employer] DIRECTOR: Yes: Other (Muscular dystonia since age 21 year) Cardio/Vascular: Yes: HTN Pulmonary: Yes: Asthma, Pneumonia, Sleep Apnea, Other (Cavitary lesion in lung ruled out for TB) Gastrointestinal: Yes: Constipation, GERD, Other (dysphagia) Hepatobiliary: Yes: Other (as noted in medical record.) Renal/: Yes: BPH (s/p thermal prostate procedure), Neurogenic Bladder ( suprapubic tube ), UTI Infectious Disease: Yes: Other (influenza b august 2013) Psych: Yes: Depression Musculoskeletal: Yes: Other (Muscular dystonia) - Past Surgical History Past Surgical History: Yes: Laminectomy (cervical laminectomy with fusion) - Alcohol/Substance Use Hx Alcohol Use: No History of Substance Use: reports: None Date of Last Use: 05/18/78 (estimated) - Smoking History Smoking history: Never smoked Have you smoked in the past 12 months: No Aproximately how many cigarettes per day: 0 - Social History Usual Living Arrangement: Alone ADL: Support Services 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 History of Recent Travel: No Home Medications - Allergies Allergies/Adverse Reactions: Allergies Allergy/AdvReac Type Severity Reaction Status Date / Time iodine Allergy Severe Low Blood Verified 05/14/18 16:32 Pressure kiwi Allergy Intermediate Swelling Verified 05/14/18 16:32 latex Allergy Unknown Swelling Verified 05/14/18 16:32 shellfish derived Allergy Unknown Verified 05/14/18 16:32 ampicillin sodium Allergy Rash Verified 05/14/18 16:32 [From Unasyn] Fish Containing Products Allergy Difficulty Verified 05/14/18 16:32 Breathing Penicillins Allergy Rash Verified 05/14/18 16:32 sulbactam sodium Allergy Rash Verified 05/14/18 16:32 [From Unasyn] Sulfa (Sulfonamide Allergy Hives Verified 05/14/18 16:32 Antibiotics) [Sulfa(Sulfonamide Antibiotics)] - Home Medications Home Medications: Ambulatory Orders Acetaminophen [Tylenol] 325 mg GT QID 09/11/17 Albuterol 0.083% Nebulizer Jojo [Ventolin 0.083% Nebulizer Soln -] 1 neb NEB Q6H 09/11/17 Bisacodyl [Biscolax] 10 mg RC DAILY 09/11/17 Diazepam [Valium] 5 mg GT TID 09/11/17 Docusate Liquid [Colace Liquid -] 300 mg GT TID 09/11/17 Lps 16-100 Liquid 30 ml GT BID 09/11/17 Methenamine/Sodium Salicylate [Cystex Plus Tablet] 1 each GT DAILY 09/11/17 Metoclopramide Oral Soln [Reglan Oral Solution -] 10 mg GT BID 09/11/17 Polyethylene Glycol 3350 [Clearlax] 17 gm GT DAILY 09/11/17 Ranitidine [Zantac -] 150 mg GT BID 09/11/17 Sennosides [Senna] 17.2 mg GT HS 09/11/17 Tramadol HCl 50 mg GT TID 09/11/17 Acetaminophen 650 mg PO QID PRN 05/14/18 Metoclopramide Oral Soln [Reglan Oral Solution -] 10 ml GT TID 05/14/18 Moxifloxacin HCl [Vigamox 0.5% -] 1 drop OD TID 05/14/18 Fred/Polymyx B Sulf/Dexameth [Maxitrol Eye Drops -] 1 drop OD DAILY 05/14/18 Prednisolone 1% Ophthalmic [Pred Forte 1% -] 1 drop OD TID 05/14/18 Family Disease History - Family Disease History Family Disease History: Diabetes: Father (mild cognitive decline), Heart Disease : Father, CA: Mother (, colon cancer), Other: Father Review of Systems - Review of Systems Constitutional: reports: Weakness Respiratory: reports: SOB Gastrointestinal: reports: No Symptoms Physical Exam Vital Signs: Vital Signs Temperature 97.2 F L 05/19/18 06:00 Pulse Rate 99 H 05/19/18 06:00 Respiratory Rate 20 05/19/18 06:00 Blood Pressure 94/62 05/19/18 06:00 O2 Sat by Pulse Oximetry (%) 100 05/19/18 07:47 Constitutional: Yes: Cachectic Respiratory: Yes: Diminished (right side) Labs: CBC, BMP 05/19/18 05:30 05/19/18 05:30 Imaging - Results Cat Scan: Image Reviewed Problem List - Problems (1) Lung abscess Code(s): J85.2 - ABSCESS OF LUNG WITHOUT PNEUMONIA Qualifiers: Pulmonary abscess pneumonia presence: without pneumonia Laterality: left Lung location: upper lobe of lung Qualified Code(s): J85.2 - Abscess of lung without pneumonia (2) COPD (chronic obstructive pulmonary disease) Code(s): J44.9 - CHRONIC OBSTRUCTIVE PULMONARY DISEASE, UNSPECIFIED Qualifiers: COPD type: COPD with acute exacerbation Qualified Code(s): J44.1 - Chronic obstructive pulmonary disease with (acute) exacerbation (3) Cavitary lesion of lung Code(s): J98.4 - OTHER DISORDERS OF LUNG Assessment/Plan 62M with MMP but most prevalent is his dystonia and inability to handle secretions. He now has a lung abscess. He is hypoxia and has an elevated WBC. He should be reimaged since he has been on abx for several days. If no improvement, would recommend a dependent IR drain with cultures and cytology being sent. I have discussed this with Dr. Sanchez, Dr. Garcia, and Dr. Dos Santos. He may end up with a BPF that should be able to be managed with a pleurovac. Will follow.
[2018-05-19] MEDS: VANCOMYCIN 1,250 MG in DEXTROSE 5%-WATER - 250 ML IVPB SCH (11:44)
[2018-05-19] MEDS ORDERED: POTASSIUM PHOSPHATE IVPB ONE (13:05)
[2018-05-19] MEDS ORDERED: WATER IVPB ONE (13:05)
[2018-05-19] MEDS ORDERED: DEXTROSE IVPB ONE (13:05)
--- NOTE | 2018-05-19 15:12 | PN ---
Teaching Attending Note Name of Resident: Yarely Falcon ATTENDING PHYSICIAN STATEMENT I saw and evaluated the patient. I reviewed the resident's note and discussed the case with the resident. I agree with the resident's findings and plan as documented. SUBJECTIVE: Unable to obtain, patient only says he is not in pain OBJECTIVE: Gen: thin, ill appearing Pulm: ronchi bilaterally CV: rrr w/o m/r/g Abd: +bs, s/nt/nd Ext: no c/c/e ASSESSMENT AND PLAN: (1) Lung abscess Assessment/Plan: -case d/w pulmonary and CT surgery -repeat CT scan -if no improvement, plan for drain placement on Wed -continue IV antibiotics Code(s): J85.2 - ABSCESS OF LUNG WITHOUT PNEUMONIA Qualifiers: Pulmonary abscess pneumonia presence: without pneumonia Laterality: left Lung location: upper lobe of lung Qualified Code(s): J85.2 - Abscess of lung without pneumonia (2) Severe sepsis Assessment/Plan: -continue hydration and IV antibiotics Code(s): A41.9 - SEPSIS, UNSPECIFIED ORGANISM; R65.20 - SEVERE SEPSIS WITHOUT SEPTIC SHOCK (3) COPD (chronic obstructive pulmonary disease) Assessment/Plan: -appreciate pulmonary support -continue atrovent and symbicort Code(s): J44.9 - CHRONIC OBSTRUCTIVE PULMONARY DISEASE, UNSPECIFIED Qualifiers: COPD type: COPD with acute exacerbation Qualified Code(s): J44.1 - Chronic obstructive pulmonary disease with (acute) exacerbation (4) Constipation Assessment/Plan: -resolved Code(s): K59.00 - CONSTIPATION, UNSPECIFIED Qualifiers: Constipation type: unspecified constipation type Qualified Code(s): K59.00 - Constipation, unspecified (5) Dysphagia Assessment/Plan: -PEG tube in place Code(s): R13.10 - DYSPHAGIA, UNSPECIFIED (6) GERD (gastroesophageal reflux disease) Assessment/Plan: -continue zantac Code(s): K21.9 - GASTRO-ESOPHAGEAL REFLUX DISEASE WITHOUT ESOPHAGITIS (7) Protein-calorie malnutrition, severe Assessment/Plan -hold TF, suspect even at low rate and head of bed elevation there is aspiration Code(s): E43 - UNSPECIFIED SEVERE PROTEIN-CALORIE MALNUTRITION Problem List - Problems (1) Lung abscess Code(s): J85.2 - ABSCESS OF LUNG WITHOUT PNEUMONIA Qualifiers: Pulmonary abscess pneumonia presence: without pneumonia Laterality: left Lung location: upper lobe of lung Qualified Code(s): J85.2 - Abscess of lung without pneumonia (2) Severe sepsis Code(s): A41.9 - SEPSIS, UNSPECIFIED ORGANISM; R65.20 - SEVERE SEPSIS WITHOUT SEPTIC SHOCK (3) COPD (chronic obstructive pulmonary disease) Code(s): J44.9 - CHRONIC OBSTRUCTIVE PULMONARY DISEASE, UNSPECIFIED Qualifiers: COPD type: COPD with acute exacerbation Qualified Code(s): J44.1 - Chronic obstructive pulmonary disease with (acute) exacerbation (4) Constipation Code(s): K59.00 - CONSTIPATION, UNSPECIFIED Qualifiers: Constipation type: unspecified constipation type Qualified Code(s): K59.00 - Constipation, unspecified (5) Dysphagia Code(s): R13.10 - DYSPHAGIA, UNSPECIFIED (6) GERD (gastroesophageal reflux disease) Code(s): K21.9 - GASTRO-ESOPHAGEAL REFLUX DISEASE WITHOUT ESOPHAGITIS (7) Protein-calorie malnutrition, severe Code(s): E43 - UNSPECIFIED SEVERE PROTEIN-CALORIE MALNUTRITION
--- NOTE | 2018-05-19 17:19 | PN ---
Physical Exam: SUBJECTIVE: Patient seen and examined at bed side this morning. Minimal conversation. Looks tired. States he doesn't have pain. OBJECTIVE: Vital Signs Period Temp Pulse Resp BP Sys/Marroquin Pulse Ox Last 24 Hr 97.1 F-98.8 F 78-99 18-20 87-101/51-70 88-100 GENERAL: Middle aged male, cachectic, lying in bed, in respiratory distress, on non rebreather, patient is awake, alert, and fully oriented. HEAD: Normal with no signs of trauma. EYES: No Pallor or icterus. ENT: Ears normal, dry mucous membranes. NECK: Supple. LUNGS: Coarse breath sounds +. Using assessory muscles. HEART: Tachycardic, Regular rate and rhythm, S1, S2 without murmur. ABDOMEN: Suprapubic tube in place, PEG, Soft, nontender, no organomegaly. EXTREMITIES: 2+ pulses, warm, well-perfused, no edema. NEUROLOGICAL: No facial droop. Normal speech, gait not observed. PSYCH: Normal mood, normal affect. SKIN: Warm, dry, normal turgor, no rashes or lesions noted Laboratory Results - last 24 hr 05/19/18 05/19/18 05/19/18 05:30 05:30 10:42 WBC 14.8 H RBC 2.80 L Hgb 8.5 L Hct 27.1 L MCV 96.8 H MCH 30.5 MCHC 31.5 L RDW 14.6 Plt Count 398 MPV 7.1 L Absolute Neuts (auto) 13.0 H Neutrophils % 88.1 H Lymphocytes % 4.1 L D Monocytes % 7.5 Eosinophils % 0.2 D Basophils % 0.1 Nucleated RBC % 0 PT with INR 14.30 H INR 1.21 H Sodium 143 Potassium 3.8 Chloride 108 H Carbon Dioxide 30 Anion Gap 5 L BUN 13 Creatinine 0.2 L Creat Clearance w eGFR > 60 Random Glucose 70 L Calcium 7.9 L Phosphorus 2.2 L Magnesium 2.0 Active Medications Generic Name Dose Route Start Last Admin Trade Name Freq PRN Reason Stop Dose Admin Acetaminophen 650 mg 05/14/18 17:04 05/17/18 17:40 Tylenol - NR 650 mg Q4H PRN Administration PAIN 1-3 Bisacodyl 10 mg 05/15/18 10:00 05/19/18 10:49 Dulcolax Suppository - RC Not Given DAILY [facility] Budesonide/Formoterol Fumarate 2 puff 05/15/18 22:00 05/19/18 10:50 Symbicort 80/4.5mcg - IH Not Given BID [facility] Diazepam 5 mg 05/14/18 22:00 05/19/18 13:52 Valium - GT Not Given TID [facility] Docusate Sodium 300 mg 05/15/18 10:00 05/19/18 10:49 Colace Liquid - GT Not Given DAILY [facility] Heparin Sodium (Porcine) 5,000 unit 05/15/18 22:00 05/19/18 06:37 Heparin - SQ Not Given TID [facility] Vancomycin HCl 1,250 mg/ 250 mls @ 250 mls/2 hr 05/15/18 10:45 05/19/18 11:44 Dextrose IVPB 250 mls/2 hr Q24H [facility] Administration Protocol Meropenem 1 gm/ Dextrose 100 mls @ 200 mls/hr 05/15/18 11:00 05/19/18 10:50 IVPB 200 mls/hr Q8H-IV [facility] Administration Sodium Chloride 1,000 mls @ 125 mls/hr 05/15/18 17:16 05/18/18 17:22 Normal Saline - IV 125 mls/hr ASDIR [facility] Administration Dextrose/Sodium Chloride 1,000 mls @ 83 mls/hr 05/19/18 10:30 05/19/18 10:51 D5-1/2ns - IV 83 mls/hr ASDIR [facility] Administration Potassium Phosphate 40 mm/ 513.3333 mls @ 64.167 mls/hr 05/19/18 13:05 16:00 Dextrose IVPB 05/19/18 21:04 64.167 mls/hr ONCE ONE Administration Ipratropium [place] 1 amp 05/15/18 12:04 Atrovent 0.02% Nebulizer - NEB 05/22/18 12:05 Q6H PRN DYSPEPSIA Metoclopramide HCl 10 mg 05/14/18 22:00 05/19/18 10:50 Reglan Oral Solution - GT Not Given BID [facility] Metoprolol Tartrate 5 mg 05/15/18 12:06 05/17/18 18:00 Lopressor Injection - IVPUSH 5 mg Q4H PRN Administration HYPERTENSION Morphine Sulfate 1 mg 05/17/18 14:22 Morphine Sulfate IVPUSH Q4H PRN PAIN LEVEL 7 - 10 Non-Formulary Medication 1 each 05/15/18 10:00 Methenamine/Sodium Salicylate [Cystex Plus Tablet] GT DAILY [facility] Oxycodone HCl 5 mg 05/17/18 14:26 05/18/18 17:22 Roxicodone - GT 5 mg Q4H PRN Administration PAIN LEVEL 4 - 6 Polyethylene Glycol 17 gm 05/15/18 10:00 05/19/18 10:50 Miralax (For Daily Use) - GT Not Given DAILY [facility] Ranitidine HCl 150 mg 05/14/18 22:00 05/19/18 10:51 Zantac - NR 150 mg BID [facility] Administration Senna 2 tab 05/14/18 22:00 05/18/18 22:04 Senna - PO 2 tab HS [facility] Administration ASSESSMENT/PLAN: Patient is a 61-year old male, with history of bronchiectasis, neurogenic bladder with a suprapubic tube, asthma,COPD, GERD, HTN, carpal tunnel, hemoptysis, dysphagsia requiring a peg tub for feed. dystonia for 32 yrs, bronchiectasis was sent from [facility] for evaluation of abnormal CXR. # Lung mass necrotizing mass vs abscess vs malignancy As compared to CT done in 09/11/17, the right upper lobe mass is new. Dr. Power was consulted who recommends IR guided drainage, there could be possibility of developing bronchopulfistula post procedure requiring pleurovac Plan is to repeat a CT chest and decide for IR guided drainage. NPO for possible procedure. Heparin on hold. Continue D5W-1/2 NS @ 83 mls/hr Discussed with Dr. Garcia and Dr. Sanchez. Palliative care request. # Sepsis from acute hypoxic respiratory failure likely secondary to aspiration vs UTI Continue Merepenam and Vancomycin Day 5 IV D5-1/2 NS @ 100 mls/hr started as patient is NPO Blood cultures negative. urine cultures showed E. fecais. Flu negative Continue Chest PT, Ipratropium nebs, Symbicort. Albuterol avoided due to tachycardia # Sinus tachycardia Likely from sepsis vs anxiety. Cardiac unlikely, ekg normal, echo normal. No events on tele. Metoprolol 5mg Q4H PRN # Dysphagia PEG tube in place. Hold feeds for now for possible procedure. # Normocytic anemia H/H Stable since last admission. Will monitor # Constipation Continue Bowel regimen. # FEN IV IV D5-1/2 NS @ 100 ml/hr started Electrolytes to be repeated in AM. Repleted phos NPO for now, no feeding from the PEG tube, aspiration precautions. # Prophylaxis For DVT: SCDs For GI: On Ranitidine # Code Status: DNR/DNR. Prognosis guarded. # Dispo: Duration of stay unknown. Admit to Tele. Plan of care explained to the patient. He verbalized understanding. Case discussed with Dr. Dos Santos. Problem List - Problems (1) Lung abscess Code(s): J85.2 - ABSCESS OF LUNG WITHOUT PNEUMONIA Qualifiers: Pulmonary abscess pneumonia presence: without pneumonia Laterality: left Lung location: upper lobe of lung Qualified Code(s): J85.2 - Abscess of lung without pneumonia (2) Sepsis Code(s): A41.9 - SEPSIS, UNSPECIFIED ORGANISM (3) Aspiration of formula Code(s): P24.30 - ASPIRAT OF MILK AND REGURGITATED FOOD W/O RESP SYMP (4) Asthma Code(s): J45.909 - UNSPECIFIED ASTHMA, UNCOMPLICATED (5) COPD (chronic obstructive pulmonary disease) Code(s): J44.9 - CHRONIC OBSTRUCTIVE PULMONARY DISEASE, UNSPECIFIED Qualifiers: COPD type: COPD with acute exacerbation Qualified Code(s): J44.1 - Chronic obstructive pulmonary disease with (acute) exacerbation (6) Cavitary lesion of lung Code(s): J98.4 - OTHER DISORDERS OF LUNG Visit type - Emergency Visit Emergency Visit: Yes ED Registration Date: 05/15/18 Care time: The patient presented to the Emergency Department on the above date and was hospitalized for further evaluation of their emergent condition. - New Patient This patient is new to me today: No - Critical Care Critical Care patient: No - Discharge Referral Referred to [facility] No
--- NOTE | 2018-05-19 18:23 | PN ---
Progress Note, Physician History of Present Illness: very weak resp issues hardly eating - Current Medication List Current Medications: Active Medications Acetaminophen (Tylenol -) 650 mg NR Q4H PRN PRN Reason: PAIN 1-3 Last Admin: 05/17/18 17:40 Dose: 650 mg Bisacodyl (Dulcolax Suppository -) 10 mg RC DAILY [facility] Last Admin: 05/19/18 10:49 Dose: Not Given Budesonide/Formoterol Fumarate (Symbicort 80/4.5mcg -) 2 puff IH BID [facility] Last Admin: 05/19/18 10:50 Dose: Not Given Diazepam (Valium -) 5 mg GT TID [facility] Last Admin: 05/19/18 13:52 Dose: Not Given Docusate Sodium (Colace Liquid -) 300 mg GT DAILY [facility] Last Admin: 05/19/18 10:49 Dose: Not Given Heparin Sodium (Porcine) (Heparin -) 5,000 unit SQ TID [facility] Last Admin: 05/19/18 06:37 Dose: Not Given Vancomycin HCl 1,250 mg/ (Dextrose) 250 mls @ 250 mls/2 hr IVPB Q24H [facility]; Protocol Last Admin: 05/19/18 11:44 Dose: 250 mls/2 hr Meropenem 1 gm/ Dextrose 100 mls @ 200 mls/hr IVPB Q8H-IV [facility] Last Admin: 05/19/18 17:04 Dose: 200 mls/hr Potassium Phosphate 40 mm/ (Dextrose) 513.3333 mls @ 64.167 mls/hr IVPB ONCE ONE Stop: 05/19/18 21:04 Last Admin: 05/19/18 16:00 Dose: 64.167 mls/hr Dextrose/Sodium Chloride (D5-1/2ns -) 1,000 mls @ 100 mls/hr IV ASDIR [facility] Last Admin: 05/19/18 18:04 Dose: 100 mls/hr Ipratropium [place] (Atrovent 0.02% Nebulizer -) 1 amp NEB Q6H PRN PRN Reason: DYSPEPSIA Stop: 05/22/18 12:05 Metoclopramide HCl (Reglan Oral Solution -) 10 mg GT BID [facility] Last Admin: 05/19/18 10:50 Dose: Not Given Metoprolol Tartrate (Lopressor Injection -) 5 mg IVPUSH Q4H PRN PRN Reason: HYPERTENSION Last Admin: 05/17/18 18:00 Dose: 5 mg Morphine Sulfate (Morphine Sulfate) 1 mg IVPUSH Q4H PRN PRN Reason: PAIN LEVEL 7 - 10 Non-Formulary Medication (Methenamine/Sodium Salicylate [Cystex Plus Tablet]) 1 each GT DAILY [facility] Oxycodone HCl (Roxicodone -) 5 mg GT Q4H PRN PRN Reason: PAIN LEVEL 4 - 6 Last Admin: 05/18/18 17:22 Dose: 5 mg Polyethylene Glycol (Miralax (For Daily Use) -) 17 gm GT DAILY [facility] Last Admin: 05/19/18 10:50 Dose: Not Given Ranitidine HCl (Zantac -) 150 mg NR BID [facility] Last Admin: 05/19/18 10:51 Dose: 150 mg Senna (Senna -) 2 tab PO HS [facility] Last Admin: 05/18/18 22:04 Dose: 2 tab - Objective Vital Signs: Vital Signs Temperature 97.6 F 05/19/18 14:23 Pulse Rate 91 H 05/19/18 14:23 Respiratory Rate 18 05/19/18 14:23 Blood Pressure 101/64 05/19/18 14:23 O2 Sat by Pulse Oximetry (%) 100 05/19/18 09:00 Constitutional: Yes: Calm, Other Cardiovascular: Yes: Regular Rate and Rhythm Respiratory: Yes: Poor Air Entry, Rhonchi, Other (on face mask) Gastrointestinal: Yes: Normal Bowel Sounds, Soft Musculoskeletal: Yes: WNL Extremities: Yes: Other (contracted) Neurological: Yes: Alert Labs: CBC, BMP 05/19/18 05:30 05/19/18 05:30 INR, PTT INR 1.21 (0.83-1.09) H 05/19/18 10:42 Assessment/Plan Problem List - Problems (1) Cavitary lesion of lung Code(s): J98.4 - OTHER DISORDERS OF LUNG (2) COPD (chronic obstructive pulmonary disease) Code(s): J44.9 - CHRONIC OBSTRUCTIVE PULMONARY DISEASE, UNSPECIFIED Qualifiers: COPD type: COPD with acute exacerbation Qualified Code(s): J44.1 - Chronic obstructive pulmonary disease with (acute) exacerbation (3) Constipation Code(s): K59.00 - CONSTIPATION, UNSPECIFIED Qualifiers: Constipation type: unspecified constipation type Qualified Code(s): K59.00 - Constipation, unspecified (4) Dysphagia Code(s): R13.10 - DYSPHAGIA, UNSPECIFIED (5) GERD (gastroesophageal reflux disease) Code(s): K21.9 - GASTRO-ESOPHAGEAL REFLUX DISEASE WITHOUT ESOPHAGITIS (6) Protein-calorie malnutrition, severe Code(s): E43 - UNSPECIFIED SEVERE PROTEIN-CALORIE MALNUTRITION plan continue abx consider starting clinimax nutrition aspiration of the abscess rest as per the team
[2018-05-19] MEDS: SENNOSIDES 8.6MG TABLET (FP) PO SCH (23:07)
[2018-05-20] MEDS: MEROPENEM 1 GM in DEXTROSE 5%-WATER 100 ML IVPB SCH ×3 (03:00→18:27)
[2018-05-20] MEDS: diazePAM 5 MG TABLET GT SCH ×3 (06:37→21:45)
[2018-05-20] MEDS ORDERED: PT OWN MED DRAWER 7, Y5N ONE ×3 (06:39→18:20)
[2018-05-20 07:45] LABS: HEMATOCRIT 26.5 % (35.4-49); HEMOGLOBIN 8.4 GM/dL (11.7-16.9); MCH 30.2 pg (25.7-33.7); MCHC 31.7 g/dl (32.0-35.9); MEAN CELL VOLUME 95.5 fl (80-96); PLATELET COUNT 361 K/MM3 (134-434); RBC 2.78 M/mm3 (4.00-5.60); RDW 14.5 % (11.9-15.9); WHITE BLOOD COUNT 13.3 K/mm3 (4.0-10.0)
[2018-05-20 07:54] LABS: INR 1.23 (0.83-1.09); PROTHROMBIN TIME (PATIENT) 14.5 SEC (9.7-13.0)
[2018-05-20 08:18] LABS: ANION GAP 6 MMOL/L (8-16); BLOOD UREA NITROGEN 8 mg/dL (7-18); CALCIUM 7.7 mg/dL (8.5-10.1); CHLORIDE 102 mmol/L (98-107); CO2 33 mmol/L (21-32); CREATININE 0.2 mg/dL (0.55-1.3); GLUCOSE,RANDOM 106 mg/dL (74-106); MAGNESIUM 1.7 mg/dL (1.8-2.4); POTASSIUM 3.7 mmol/L (3.5-5.1); SODIUM 141 mmol/L (136-145)
--- NOTE | 2018-05-20 09:09 | PN ---
Progress Note, Physician Chief Complaint: sob History of Present Illness: no sob at present (NRB mask on) no cp, palpit, leg swelling - Current Medication List Current Medications: Active Medications Acetaminophen (Tylenol -) 650 mg NR Q4H PRN PRN Reason: PAIN 1-3 Last Admin: 05/17/18 17:40 Dose: 650 mg Bisacodyl (Dulcolax Suppository -) 10 mg RC DAILY [facility] Last Admin: 05/19/18 10:49 Dose: Not Given Budesonide/Formoterol Fumarate (Symbicort 80/4.5mcg -) 2 puff IH BID [facility] Last Admin: 05/19/18 23:06 Dose: Not Given Diazepam (Valium -) 5 mg GT TID [facility] Last Admin: 05/20/18 06:37 Dose: 5 mg Docusate Sodium (Colace Liquid -) 300 mg GT DAILY [facility] Last Admin: 05/19/18 10:49 Dose: Not Given Heparin Sodium (Porcine) (Heparin -) 5,000 unit SQ TID [facility] Last Admin: 05/19/18 06:37 Dose: Not Given Vancomycin HCl 1,250 mg/ (Dextrose) 250 mls @ 250 mls/2 hr IVPB Q24H [facility]; Protocol Last Admin: 05/19/18 11:44 Dose: 250 mls/2 hr Meropenem 1 gm/ Dextrose 100 mls @ 200 mls/hr IVPB Q8H-IV [facility] Last Admin: 05/20/18 03:00 Dose: 200 mls/hr Dextrose/Sodium Chloride (D5-1/2ns -) 1,000 mls @ 100 mls/hr IV ASDIR [facility] Last Admin: 05/19/18 18:04 Dose: 100 mls/hr Ipratropium [place] (Atrovent 0.02% Nebulizer -) 1 amp NEB Q6H PRN PRN Reason: DYSPEPSIA Stop: 05/22/18 12:05 Metoclopramide HCl (Reglan Oral Solution -) 10 mg GT BID [facility] Last Admin: 05/19/18 23:16 Dose: 10 mg Metoprolol Tartrate (Lopressor Injection -) 5 mg IVPUSH Q4H PRN PRN Reason: HYPERTENSION Last Admin: 05/17/18 18:00 Dose: 5 mg Morphine Sulfate (Morphine Sulfate) 1 mg IVPUSH Q4H PRN PRN Reason: PAIN LEVEL 7 - 10 Non-Formulary Medication (Methenamine/Sodium Salicylate [Cystex Plus Tablet]) 1 each GT DAILY [facility] Oxycodone HCl (Roxicodone -) 5 mg GT Q4H PRN PRN Reason: PAIN LEVEL 4 - 6 Last Admin: 05/18/18 17:22 Dose: 5 mg Polyethylene Glycol (Miralax (For Daily Use) -) 17 gm GT DAILY [facility] Last Admin: 05/19/18 10:50 Dose: Not Given Ranitidine HCl (Zantac -) 150 mg NR BID [facility] Last Admin: 05/19/18 23:15 Dose: 150 mg Senna (Senna -) 2 tab PO HS [facility] Last Admin: 05/19/18 23:07 Dose: Not Given - Objective Vital Signs: Vital Signs Temperature 97.4 F L 05/20/18 08:43 Pulse Rate 69 05/20/18 08:43 Respiratory Rate 20 05/20/18 08:43 Blood Pressure 92/56 L 05/20/18 08:43 O2 Sat by Pulse Oximetry (%) 100 05/20/18 06:33 Constitutional: Yes: No Distress, Calm, Cachectic Cardiovascular: Yes: Regular Rate and Rhythm, S1, S2. No: Gallop, Murmur Respiratory: Yes: Regular, CTA Bilaterally (anteriorly (cannot sit up)). No: Accessory Muscle Use, Rales, Wheezes Extremities: No: Cold Edema: No Neurological: Yes: Alert. No: Seizure Psychiatric: No: Agitated Labs: CBC, BMP 05/20/18 06:00 05/20/18 06:00 INR, PTT INR 1.23 (0.83-1.09) H 05/20/18 06:00 Assessment/Plan ecg: sinus tach, nl intervals, irbbb echo 04/2018: tds; nl lv/rv, mod tr, nl rvsp ct chest: rul mass/fluid collection tele: N SR a/p: 62 m hx muscular dystonia, peg, [place], sent [place] cxr/ pna. pna, aspiration, pulm abscess -plan per ID, pulm, thoracic surgery sinus tachy: -echo and ecg unremarkable -tele showed sinus tach, no arrhythmias -sinus tach 2/2 pna/resp distress. Continue to treat underlying issues, no specific tx needed for HR at this time. dc tele (again)
[2018-05-20] MEDS: METOCLOPRAMIDE HCL 5 MG/5 ML UNIT DOSE CUP GT SCH ×2 (10:10→21:46)
[2018-05-20] MEDS: VANCOMYCIN 1,250 MG in DEXTROSE 5%-WATER - 250 ML IVPB SCH (10:35)
--- NOTE | 2018-05-20 11:16 | PN ---
Progress Note, Physician Chief Complaint: Mr Nash says he feels not feeling well, cannot obtain further subjective. Agrees to CT scan - Current Medication List Current Medications: Active Medications Acetaminophen (Tylenol -) 650 mg NR Q4H PRN PRN Reason: PAIN 1-3 Last Admin: 05/17/18 17:40 Dose: 650 mg Bisacodyl (Dulcolax Suppository -) 10 mg RC DAILY [facility] Last Admin: 05/19/18 10:49 Dose: Not Given Budesonide/Formoterol Fumarate (Symbicort 80/4.5mcg -) 2 puff IH BID [facility] Last Admin: 05/19/18 23:06 Dose: Not Given Diazepam (Valium -) 5 mg GT TID [facility] Last Admin: 05/20/18 06:37 Dose: 5 mg Docusate Sodium (Colace Liquid -) 300 mg GT DAILY [facility] Last Admin: 05/19/18 10:49 Dose: Not Given Heparin Sodium (Porcine) (Heparin -) 5,000 unit SQ TID [facility] Last Admin: 05/19/18 06:37 Dose: Not Given Vancomycin HCl 1,250 mg/ (Dextrose) 250 mls @ 250 mls/2 hr IVPB Q24H [facility]; Protocol Last Admin: 05/20/18 10:35 Dose: 250 mls/2 hr Meropenem 1 gm/ Dextrose 100 mls @ 200 mls/hr IVPB Q8H-IV [facility] Last Admin: 05/20/18 10:35 Dose: 200 mls/hr Dextrose/Sodium Chloride (D5-1/2ns -) 1,000 mls @ 100 mls/hr IV ASDIR [facility] Last Admin: 05/19/18 18:04 Dose: 100 mls/hr Ipratropium [place] (Atrovent 0.02% Nebulizer -) 1 amp NEB Q6H PRN PRN Reason: DYSPEPSIA Stop: 05/22/18 12:05 Metoclopramide HCl (Reglan Oral Solution -) 10 mg GT BID [facility] Last Admin: 05/19/18 23:16 Dose: 10 mg Metoprolol Tartrate (Lopressor Injection -) 5 mg IVPUSH Q4H PRN PRN Reason: HYPERTENSION Last Admin: 05/17/18 18:00 Dose: 5 mg Morphine Sulfate (Morphine Sulfate) 1 mg IVPUSH Q4H PRN PRN Reason: PAIN LEVEL 7 - 10 Non-Formulary Medication (Methenamine/Sodium Salicylate [Cystex Plus Tablet]) 1 each GT DAILY [facility] Oxycodone HCl (Roxicodone -) 5 mg GT Q4H PRN PRN Reason: PAIN LEVEL 4 - 6 Last Admin: 05/18/18 17:22 Dose: 5 mg Polyethylene Glycol (Miralax (For Daily Use) -) 17 gm GT DAILY [facility] Last Admin: 05/19/18 10:50 Dose: Not Given Ranitidine HCl (Zantac -) 150 mg NR BID [facility] Last Admin: 05/19/18 23:15 Dose: 150 mg Senna (Senna -) 2 tab PO HS [facility] Last Admin: 05/19/18 23:07 Dose: Not Given - Objective Vital Signs: Vital Signs Temperature 36.3 C L 05/20/18 08:43 Pulse Rate 69 05/20/18 08:43 Respiratory Rate 20 05/20/18 08:43 Blood Pressure 92/56 L 05/20/18 08:43 O2 Sat by Pulse Oximetry (%) 100 05/20/18 06:33 Constitutional: Yes: No Distress, Thin Cardiovascular: Yes: Regular Rate and Rhythm. No: Gallop, Murmur, Rub Respiratory: Yes: Regular, On Nasal O2, Rhonchi. No: CTA Bilaterally, Rales, Wheezes Gastrointestinal: Yes: Normal Bowel Sounds, Soft. No: Distention, Tenderness Extremities: Yes: WNL Edema: No Labs: CBC, BMP 05/20/18 06:00 05/20/18 06:00 INR, PTT INR 1.23 (0.83-1.09) H 05/20/18 06:00 Problem List - Problems (1) Lung abscess Code(s): J85.2 - ABSCESS OF LUNG WITHOUT PNEUMONIA Qualifiers: Pulmonary abscess pneumonia presence: without pneumonia Laterality: left Lung location: upper lobe of lung Qualified Code(s): J85.2 - Abscess of lung without pneumonia (2) Severe sepsis Code(s): A41.9 - SEPSIS, UNSPECIFIED ORGANISM; R65.20 - SEVERE SEPSIS WITHOUT SEPTIC SHOCK (3) COPD (chronic obstructive pulmonary disease) Code(s): J44.9 - CHRONIC OBSTRUCTIVE PULMONARY DISEASE, UNSPECIFIED Qualifiers: COPD type: COPD with acute exacerbation Qualified Code(s): J44.1 - Chronic obstructive pulmonary disease with (acute) exacerbation (4) Constipation Code(s): K59.00 - CONSTIPATION, UNSPECIFIED Qualifiers: Constipation type: unspecified constipation type Qualified Code(s): K59.00 - Constipation, unspecified (5) Dysphagia Code(s): R13.10 - DYSPHAGIA, UNSPECIFIED (6) GERD (gastroesophageal reflux disease) Code(s): K21.9 - GASTRO-ESOPHAGEAL REFLUX DISEASE WITHOUT ESOPHAGITIS (7) Protein-calorie malnutrition, severe Code(s): E43 - UNSPECIFIED SEVERE PROTEIN-CALORIE MALNUTRITION Assessment/Plan (1) Lung abscess Assessment/Plan: -patient agrees to CT scan today -possible drain placement by IR tomorrow -continue antibiotics Code(s): J85.2 - ABSCESS OF LUNG WITHOUT PNEUMONIA Qualifiers: Pulmonary abscess pneumonia presence: without pneumonia Laterality: left Lung location: upper lobe of lung Qualified Code(s): J85.2 - Abscess of lung without pneumonia (2) Severe sepsis Assessment/Plan: -continue hydration and IV antibiotics Code(s): A41.9 - SEPSIS, UNSPECIFIED ORGANISM; R65.20 - SEVERE SEPSIS WITHOUT SEPTIC SHOCK (3) COPD (chronic obstructive pulmonary disease) Assessment/Plan: -appreciate pulmonary support -continue atrovent and symbicort Code(s): J44.9 - CHRONIC OBSTRUCTIVE PULMONARY DISEASE, UNSPECIFIED Qualifiers: COPD type: COPD with acute exacerbation Qualified Code(s): J44.1 - Chronic obstructive pulmonary disease with (acute) exacerbation (4) Constipation Assessment/Plan: -resolved Code(s): K59.00 - CONSTIPATION, UNSPECIFIED Qualifiers: Constipation type: unspecified constipation type Qualified Code(s): K59.00 - Constipation, unspecified (5) Dysphagia Assessment/Plan: -PEG tube in place Code(s): R13.10 - DYSPHAGIA, UNSPECIFIED (6) GERD (gastroesophageal reflux disease) Assessment/Plan: -continue zantac Code(s): K21.9 - GASTRO-ESOPHAGEAL REFLUX DISEASE WITHOUT ESOPHAGITIS (7) Protein-calorie malnutrition, severe Assessment/Plan -hold TF, suspect even at low rate and head of bed elevation there is aspiration Code(s): E43 - UNSPECIFIED SEVERE PROTEIN-CALORIE MALNUTRITION
--- NOTE | 2018-05-20 11:26 | PN ---
Progress Note (short form) - Note Progress Note: PULMONARY Lethargic on NRB. No fevers recorded. Vital Signs Period Temp Pulse Resp BP Sys/Marroquin Pulse Ox Last 24 Hr 97.0 F-97.6 F 69-104 18-20 92-121/56-67 98-100 Gen: lethargic, cachectic Heart: RRR Lung: distant breath sounds Abd: soft, nontender Ext: no edema CBC, BMP 05/20/18 06:00 05/20/18 06:00 Active Medications Acetaminophen (Tylenol -) 650 mg NR Q4H PRN PRN Reason: PAIN 1-3 Last Admin: 05/17/18 17:40 Dose: 650 mg Bisacodyl (Dulcolax Suppository -) 10 mg RC DAILY [facility] Last Admin: 05/19/18 10:49 Dose: Not Given Budesonide/Formoterol Fumarate (Symbicort 80/4.5mcg -) 2 puff IH BID [facility] Last Admin: 05/19/18 23:06 Dose: Not Given Diazepam (Valium -) 5 mg GT TID [facility] Last Admin: 05/20/18 06:37 Dose: 5 mg Docusate Sodium (Colace Liquid -) 300 mg GT DAILY [facility] Last Admin: 05/19/18 10:49 Dose: Not Given Heparin Sodium (Porcine) (Heparin -) 5,000 unit SQ TID [facility] Last Admin: 05/19/18 06:37 Dose: Not Given Vancomycin HCl 1,250 mg/ (Dextrose) 250 mls @ 250 mls/2 hr IVPB Q24H [facility]; Protocol Last Admin: 05/20/18 10:35 Dose: 250 mls/2 hr Meropenem 1 gm/ Dextrose 100 mls @ 200 mls/hr IVPB Q8H-IV [facility] Last Admin: 05/20/18 10:35 Dose: 200 mls/hr Dextrose/Sodium Chloride (D5-1/2ns -) 1,000 mls @ 100 mls/hr IV ASDIR [facility] Last Admin: 05/19/18 18:04 Dose: 100 mls/hr Ipratropium [place] (Atrovent 0.02% Nebulizer -) 1 amp NEB Q6H PRN PRN Reason: DYSPEPSIA Stop: 05/22/18 12:05 Metoclopramide HCl (Reglan Oral Solution -) 10 mg GT BID [facility] Last Admin: 05/19/18 23:16 Dose: 10 mg Metoprolol Tartrate (Lopressor Injection -) 5 mg IVPUSH Q4H PRN PRN Reason: HYPERTENSION Last Admin: 05/17/18 18:00 Dose: 5 mg Morphine Sulfate (Morphine Sulfate) 1 mg IVPUSH Q4H PRN PRN Reason: PAIN LEVEL 7 - 10 Non-Formulary Medication (Methenamine/Sodium Salicylate [Cystex Plus Tablet]) 1 each GT DAILY [facility] Oxycodone HCl (Roxicodone -) 5 mg GT Q4H PRN PRN Reason: PAIN LEVEL 4 - 6 Last Admin: 05/18/18 17:22 Dose: 5 mg Polyethylene Glycol (Miralax (For Daily Use) -) 17 gm GT DAILY [facility] Last Admin: 05/19/18 10:50 Dose: Not Given Ranitidine HCl (Zantac -) 150 mg NR BID [facility] Last Admin: 05/19/18 23:15 Dose: 150 mg Senna (Senna -) 2 tab PO HS [facility] Last Admin: 05/19/18 23:07 Dose: Not Given A/P Muscular Dystonia Pneumonia Lung Abscess Dysphagia s/p PEG - continue antibiotics - inhaled bronchodilators - O2 to keep SpO2 >90% - aspiration precautions - prognosis guarded - pt DNR/DNI
[2018-05-20] MEDS: DOCUSATE NA 100 MG/10 ML UNIT-DOSE CUPS GT SCH (12:32)
[2018-05-20] MEDS: RANITIDINE HCL 150 MG TABLET (FP) NR SCH ×2 (12:33→21:45)
[2018-05-20] MEDS: POLYETHYLENE GLYCOL 3350 119 GM BTL GT SCH (12:33)
[2018-05-20] MEDS: BISACODYL 10 MG SUPP.RECT RC SCH (12:35)
[2018-05-20] MEDS: BUDESONIDE/FORMETEROL FUMARATE 80/4.5 mcg INHALER IH SCH ×2 (12:36→22:04)
[2018-05-20] MEDS: HEPARIN NA (PORCINE) 5,000 UNITS/ML 1ML VIAL SQ SCH ×2 (13:56→21:45)
--- NOTE | 2018-05-20 14:27 | PN ---
Progress Note, Physician History of Present Illness: patient more awake no distress extremely weak awaiting drainage - Current Medication List Current Medications: Active Medications Acetaminophen (Tylenol -) 650 mg NR Q4H PRN PRN Reason: PAIN 1-3 Last Admin: 05/17/18 17:40 Dose: 650 mg Bisacodyl (Dulcolax Suppository -) 10 mg RC DAILY [facility] Last Admin: 05/20/18 12:35 Dose: Not Given Budesonide/Formoterol Fumarate (Symbicort 80/4.5mcg -) 2 puff IH BID [facility] Last Admin: 05/20/18 12:36 Dose: Not Given Diazepam (Valium -) 5 mg GT TID [facility] Last Admin: 05/20/18 13:56 Dose: 5 mg Docusate Sodium (Colace Liquid -) 300 mg GT DAILY [facility] Last Admin: 05/20/18 12:32 Dose: Not Given Heparin Sodium (Porcine) (Heparin -) 5,000 unit SQ TID [facility] Last Admin: 05/20/18 13:56 Dose: 5,000 unit Vancomycin HCl 1,250 mg/ (Dextrose) 250 mls @ 250 mls/2 hr IVPB Q24H [facility]; Protocol Last Admin: 05/20/18 10:35 Dose: 250 mls/2 hr Meropenem 1 gm/ Dextrose 100 mls @ 200 mls/hr IVPB Q8H-IV [facility] Last Admin: 05/20/18 10:35 Dose: 200 mls/hr Dextrose/Sodium Chloride (D5-1/2ns -) 1,000 mls @ 100 mls/hr IV ASDIR [facility] Last Admin: 05/19/18 18:04 Dose: 100 mls/hr Ipratropium [place] (Atrovent 0.02% Nebulizer -) 1 amp NEB Q6H PRN PRN Reason: DYSPEPSIA Stop: 05/22/18 12:05 Metoclopramide HCl (Reglan Oral Solution -) 10 mg GT BID [facility] Last Admin: 05/20/18 10:10 Dose: Not Given Metoprolol Tartrate (Lopressor Injection -) 5 mg IVPUSH Q4H PRN PRN Reason: HYPERTENSION Last Admin: 05/17/18 18:00 Dose: 5 mg Morphine Sulfate (Morphine Sulfate) 1 mg IVPUSH Q4H PRN PRN Reason: PAIN LEVEL 7 - 10 Non-Formulary Medication (Methenamine/Sodium Salicylate [Cystex Plus Tablet]) 1 each GT DAILY [facility] Oxycodone HCl (Roxicodone -) 5 mg GT Q4H PRN PRN Reason: PAIN LEVEL 4 - 6 Last Admin: 05/18/18 17:22 Dose: 5 mg Polyethylene Glycol (Miralax (For Daily Use) -) 17 gm GT DAILY [facility] Last Admin: 05/20/18 12:33 Dose: Not Given Ranitidine HCl (Zantac -) 150 mg NR BID [facility] Last Admin: 05/20/18 12:33 Dose: 150 mg Senna (Senna -) 2 tab PO HS [facility] Last Admin: 05/19/18 23:07 Dose: Not Given - Objective Vital Signs: Vital Signs Temperature 97.4 F L 05/20/18 08:43 Pulse Rate 69 05/20/18 08:43 Respiratory Rate 20 05/20/18 09:00 Blood Pressure 92/56 L 05/20/18 08:43 O2 Sat by Pulse Oximetry (%) 100 05/20/18 09:00 Constitutional: Yes: No Distress, Calm Cardiovascular: Yes: S1, S2 Respiratory: Yes: Regular, Poor Air Entry Gastrointestinal: Yes: Normal Bowel Sounds, Soft Musculoskeletal: Yes: WNL Extremities: Yes: Other Neurological: Yes: Alert, Oriented Psychiatric: Yes: Alert, Oriented Labs: CBC, BMP 05/20/18 06:00 05/20/18 06:00 INR, PTT INR 1.23 (0.83-1.09) H 05/20/18 06:00 Assessment/Plan Problem List - Problems (1) Cavitary lesion of lung Code(s): J98.4 - OTHER DISORDERS OF LUNG (2) COPD (chronic obstructive pulmonary disease) Code(s): J44.9 - CHRONIC OBSTRUCTIVE PULMONARY DISEASE, UNSPECIFIED Qualifiers: COPD type: COPD with acute exacerbation Qualified Code(s): J44.1 - Chronic obstructive pulmonary disease with (acute) exacerbation (3) Constipation Code(s): K59.00 - CONSTIPATION, UNSPECIFIED Qualifiers: Constipation type: unspecified constipation type Qualified Code(s): K59.00 - Constipation, unspecified (4) Dysphagia Code(s): R13.10 - DYSPHAGIA, UNSPECIFIED (5) GERD (gastroesophageal reflux disease) Code(s): K21.9 - GASTRO-ESOPHAGEAL REFLUX DISEASE WITHOUT ESOPHAGITIS (6) Protein-calorie malnutrition, severe Code(s): E43 - UNSPECIFIED SEVERE PROTEIN-CALORIE MALNUTRITION plan continue abx nutrition aspiration of the abscess consider ppn/clinimax rest as per the team
[2018-05-20] MEDS ORDERED: AMINO ACIDS 4.25%/D5W 1,000 ML IV SCH (14:45)
[2018-05-20] MEDS: AMINO ACIDS 4.25%/D5W 1,000 ML IV SCH (16:28)
[2018-05-20] MEDS: SENNOSIDES 8.6MG TABLET (FP) PO SCH (21:46)
[2018-05-21] MEDS: MEROPENEM 1 GM in DEXTROSE 5%-WATER 100 ML IVPB SCH ×3 (01:52→17:31)
[2018-05-21] MEDS: diazePAM 5 MG TABLET GT SCH ×3 (05:53→21:37)
[2018-05-21] MEDS: HEPARIN NA (PORCINE) 5,000 UNITS/ML 1ML VIAL SQ SCH ×2 (05:54→21:38)
[2018-05-21 06:45] LABS: BASO % 0.2 % (0-2.0); EOS % 0.2 % (0-4.5); HEMATOCRIT 29.6 % (35.4-49); HEMOGLOBIN 9.6 GM/dL (11.7-16.9); LYMPH % 4.6 % (8-40); MCH 30.7 pg (25.7-33.7); MCHC 32.4 g/dl (32.0-35.9); MEAN CELL VOLUME 94.8 fl (80-96); MEAN PLT VOLUME 7.8 fl (7.5-11.1); MONO % 7.6 % (3.8-10.2); NEUT % 87.4 % (42.8-82.8); PLATELET COUNT 350 K/MM3 (134-434); RBC 3.13 M/mm3 (4.00-5.60); RDW 14.6 % (11.9-15.9); WHITE BLOOD COUNT 15.9 K/mm3 (4.0-10.0)
[2018-05-21 07:06] LABS: ANION GAP 5 MMOL/L (8-16); BLOOD UREA NITROGEN 8 mg/dL (7-18); CALCIUM 7.7 mg/dL (8.5-10.1); CHLORIDE 94 mmol/L (98-107); CO2 37 mmol/L (21-32); CREATININE 0.2 mg/dL (0.55-1.3); GLUCOSE,RANDOM 95 mg/dL (74-106); MAGNESIUM 1.8 mg/dL (1.8-2.4); PHOSPHOROUS 1.5 mg/dL (2.5-4.9); POTASSIUM 3.4 mmol/L (3.5-5.1); SODIUM 137 mmol/L (136-145)
--- NOTE | 2018-05-21 09:54 | PN ---
Progress Note (short form) - Note Progress Note: Chief Complaint: sob History of Present Illness: no cp, palps, sob, dizziness, lightheadedness Current Medications Acetaminophen (Tylenol -) 650 mg NR Q4H PRN PRN Reason: PAIN 1-3 Last Admin: 05/17/18 17:40 Dose: 650 mg Bisacodyl (Dulcolax Suppository -) 10 mg RC DAILY [facility] Last Admin: 05/20/18 12:35 Dose: Not Given Budesonide/Formoterol Fumarate (Symbicort 80/4.5mcg -) 2 puff IH BID [facility] Last Admin: 05/20/18 22:04 Dose: Not Given Diazepam (Valium -) 5 mg GT TID [facility] Last Admin: 05/21/18 05:53 Dose: 5 mg Docusate Sodium (Colace Liquid -) 300 mg GT DAILY [facility] Last Admin: 05/20/18 12:32 Dose: Not Given Heparin Sodium (Porcine) (Heparin -) 5,000 unit SQ TID [facility] Last Admin: 05/21/18 05:54 Dose: Not Given Vancomycin HCl 1,250 mg/ (Dextrose) 250 mls @ 250 mls/2 hr IVPB Q24H [facility]; Protocol Last Admin: 05/20/18 10:35 Dose: 250 mls/2 hr Meropenem 1 gm/ Dextrose 100 mls @ 200 mls/hr IVPB Q8H-IV [facility] Last Admin: 05/21/18 01:52 Dose: 200 mls/hr Amino Acids (Clinimix -) 1,000 mls @ 42 mls/hr IV Q24H [facility] Last Admin: 05/20/18 16:28 Dose: 42 mls/hr Ipratropium [place] (Atrovent 0.02% Nebulizer -) 1 amp NEB Q6H PRN PRN Reason: DYSPEPSIA Stop: 05/22/18 12:05 Metoclopramide HCl (Reglan Oral Solution -) 10 mg GT BID [facility] Last Admin: 05/20/18 21:46 Dose: 10 mg Metoprolol Tartrate (Lopressor Injection -) 5 mg IVPUSH Q4H PRN PRN Reason: HYPERTENSION Last Admin: 05/17/18 18:00 Dose: 5 mg Morphine Sulfate (Morphine Sulfate) 1 mg IVPUSH Q4H PRN PRN Reason: PAIN LEVEL 7 - 10 Oxycodone HCl (Roxicodone -) 5 mg GT Q4H PRN PRN Reason: PAIN LEVEL 4 - 6 Last Admin: 05/18/18 17:22 Dose: 5 mg Polyethylene Glycol (Miralax (For Daily Use) -) 17 gm GT DAILY [facility] Last Admin: 05/20/18 12:33 Dose: Not Given Ranitidine HCl (Zantac -) 150 mg NR BID [facility] Last Admin: 05/20/18 21:45 Dose: 150 mg Senna (Senna -) 2 tab PO HS [facility] Last Admin: 05/20/18 21:46 Dose: Not Given - Objective Vital Signs Period Temp Pulse Resp BP Sys/Marroquin Pulse Ox Last 24 Hr 97.5 F-98.2 F 82-106 20-22 107-114/62-76 96-96 Constitutional: Yes: No Distress, Calm, Cachectic Cardiovascular: Yes: Regular Rate and Rhythm, S1, S2. No: Gallop, Murmur Respiratory: Yes: Regular, CTA Bilaterally (anteriorly (cannot sit up)). No: Accessory Muscle Use, Rales, Wheezes Extremities: No: Cold Edema: No Neurological: Yes: Alert. No: Seizure Psychiatric: No: Agitated Assessment/Plan ecg: sinus tach, nl intervals, irbbb echo 04/2018: tds; nl lv/rv, mod tr, nl rvsp ct chest: rul mass/fluid collection a/p: 62 m hx muscular dystonia, peg, [place], sent [place] for ab[place] cxr/ pna. pna, aspiration, pulm abscess -plan per ID, pulm, thoracic surgery sinus tachy: -echo and ecg unremarkable -tele showed sinus tach, no arrhythmias -sinus tach 2/2 pna/resp distress. Continue to treat underlying issues, no specific tx needed for HR at this time.
[2018-05-21] MEDS: RANITIDINE HCL 150 MG TABLET (FP) NR SCH ×2 (10:32→21:37)
[2018-05-21] MEDS ORDERED: POTASSIUM PHOSPHATE 30 MM in DEXTROSE 5%-WATER - 500 ML IVPB ONE (10:45)
--- NOTE | 2018-05-21 11:22 | PN ---
Progress Note, Physician History of Present Illness: PULMONARY LETHARGIC,ON 100%NRM - Current Medication List Current Medications: Active Medications Acetaminophen (Tylenol -) 650 mg NR Q4H PRN PRN Reason: PAIN 1-3 Last Admin: 05/17/18 17:40 Dose: 650 mg Bisacodyl (Dulcolax Suppository -) 10 mg RC DAILY [facility] Last Admin: 05/20/18 12:35 Dose: Not Given Budesonide/Formoterol Fumarate (Symbicort 80/4.5mcg -) 2 puff IH BID [facility] Last Admin: 05/20/18 22:04 Dose: Not Given Diazepam (Valium -) 5 mg GT TID [facility] Last Admin: 05/21/18 05:53 Dose: 5 mg Docusate Sodium (Colace Liquid -) 300 mg GT DAILY [facility] Last Admin: 05/20/18 12:32 Dose: Not Given Heparin Sodium (Porcine) (Heparin -) 5,000 unit SQ TID [facility] Last Admin: 05/21/18 05:54 Dose: Not Given Vancomycin HCl 1,250 mg/ (Dextrose) 250 mls @ 250 mls/2 hr IVPB Q24H [facility]; Protocol Last Admin: 05/20/18 10:35 Dose: 250 mls/2 hr Meropenem 1 gm/ Dextrose 100 mls @ 200 mls/hr IVPB Q8H-IV [facility] Last Admin: 05/21/18 10:46 Dose: 200 mls/hr Amino Acids (Clinimix -) 1,000 mls @ 42 mls/hr IV Q24H [facility] Last Admin: 05/20/18 16:28 Dose: 42 mls/hr Potassium Phosphate 30 mm/ (Dextrose) 510 mls @ 62.5 mls/hr IVPB ONCE ONE Stop: 05/21/18 18:54 Ipratropium [place] (Atrovent 0.02% Nebulizer -) 1 amp NEB Q6H PRN PRN Reason: DYSPEPSIA Stop: 05/22/18 12:05 Metoclopramide HCl (Reglan Oral Solution -) 10 mg GT BID [facility] Last Admin: 05/20/18 21:46 Dose: 10 mg Metoprolol Tartrate (Lopressor Injection -) 5 mg IVPUSH Q4H PRN PRN Reason: HYPERTENSION Last Admin: 05/17/18 18:00 Dose: 5 mg Morphine Sulfate (Morphine Sulfate) 1 mg IVPUSH Q4H PRN PRN Reason: PAIN LEVEL 7 - 10 Oxycodone HCl (Roxicodone -) 5 mg GT Q4H PRN PRN Reason: PAIN LEVEL 4 - 6 Last Admin: 05/18/18 17:22 Dose: 5 mg Polyethylene Glycol (Miralax (For Daily Use) -) 17 gm GT DAILY [facility] Last Admin: 05/20/18 12:33 Dose: Not Given Ranitidine HCl (Zantac -) 150 mg NR BID [facility] Last Admin: 05/20/18 21:45 Dose: 150 mg Senna (Senna -) 2 tab PO HS [facility] Last Admin: 05/20/18 21:46 Dose: Not Given - Objective Vital Signs: Vital Signs Temperature 97.6 F 05/21/18 05:45 Pulse Rate 101 H 05/21/18 05:45 Respiratory Rate 21 H 05/21/18 05:45 Blood Pressure 108/71 05/21/18 05:45 O2 Sat by Pulse Oximetry (%) 96 05/21/18 07:47 Constitutional: Yes: Cachectic, Other (LETHARGIC) Eyes: Yes: WNL HENT: Yes: WNL Neck: Yes: WNL Cardiovascular: Yes: Regular Rate and Rhythm, S1, S2 Respiratory: Yes: Diminished Gastrointestinal: Yes: Normal Bowel Sounds, Soft Extremities: Yes: WNL Edema: No Labs: CBC, BMP 05/21/18 05:30 05/21/18 05:30 INR, PTT INR 1.23 (0.83-1.09) H 05/20/18 06:00 - ....Imaging Cat Scan: Report Reviewed, Image Reviewed Problem List - Problems (1) Atelectasis Code(s): J98.11 - ATELECTASIS (2) Acute hypoxemic respiratory failure Code(s): J96.01 - ACUTE RESPIRATORY FAILURE WITH HYPOXIA Assessment/Plan (1) Lung abscess Code(s): J85.2 - ABSCESS OF LUNG WITHOUT PNEUMONIA Qualifiers: Pulmonary abscess pneumonia presence: without pneumonia Laterality: left Lung location: upper lobe of lung Qualified Code(s): J85.2 - Abscess of lung without pneumonia (2) Aspiration of formula Code(s): P24.30 - ASPIRAT OF MILK AND REGURGITATED FOOD W/O RESP SYMP (3) COPD (chronic obstructive pulmonary disease) Code(s): J44.9 - CHRONIC OBSTRUCTIVE PULMONARY DISEASE, UNSPECIFIED Qualifiers: COPD type: COPD with acute exacerbation Qualified Code(s): J44.1 - Chronic obstructive pulmonary disease with (acute) exacerbation (4) Cavitary lesion of lung Code(s): J98.4 - OTHER DISORDERS OF LUNG (5) Dysphagia Code(s): R13.10 - DYSPHAGIA, UNSPECIFIED (6) Dystonia Code(s): G24.9 - DYSTONIA, UNSPECIFIED (7) Empyema lung Code(s): J86.9 - PYOTHORAX WITHOUT FISTULA (8) GERD (gastroesophageal reflux disease) Code(s): K21.9 - GASTRO-ESOPHAGEAL REFLUX DISEASE WITHOUT ESOPHAGITIS (9) HTN (hypertension) Code(s): I10 - ESSENTIAL (PRIMARY) HYPERTENSION Qualifiers: (10) Hypoxemia Code(s): R09.02 - HYPOXEMIA (11) Lung mass Code(s): R91.8 - OTHER NONSPECIFIC ABNORMAL FINDING OF LUNG FIELD (12) Neurogenic bladder Code(s): N31.9 - NEUROMUSCULAR DYSFUNCTION OF BLADDER, UNSPECIFIED (13) Pneumonia Code(s): J18.9 - PNEUMONIA, UNSPECIFIED ORGANISM Qualifiers: (14) Protein-calorie malnutrition, severe Code(s): E43 - UNSPECIFIED SEVERE PROTEIN-CALORIE MALNUTRITION (15) Sinus tachycardia Code(s): R00.0 - TACHYCARDIA, UNSPECIFIED (16) Sepsis Code(s): A41.9 - SEPSIS, UNSPECIFIED ORGANISM 17 Assessment/Plan ACUTE HYPOXEMIC RESPIRATORY FAILURE DYSTONIA LUNG ABSCESS LEFT LUNG ATELECTASIS LIKELY MUCUS PLUG RECURRENT ASPIRATION Aspiration precautions 100% NRBM fo Ir for drainage catheter mucomyst chest pt,suctioning f/u chest x-rays ABX per ID BD TX PRN IVF resuscitation increased pain meds Needs palliative care consult DR MURDOCK
[2018-05-21] MEDS: VANCOMYCIN 1,250 MG in DEXTROSE 5%-WATER - 250 ML IVPB SCH (11:32)
[2018-05-21] MEDS ORDERED: ALBUTEROL SO4 0.083% IH SOL 2.5 MG/3 ML VIAL.NEB. NEB ONE (11:57)
[2018-05-21] MEDS ORDERED: PT OWN MED DRAWER 7, Y5N ONE ×2 (11:58→17:14)
[2018-05-21] MEDS: ACETYLCYSTEINE 20% 200MG/ML 4 ML VIAL *FOR ORAL / INH USE ONLY NEB SCH ×3 (12:03→20:36)
[2018-05-21] MEDS: ALBUTEROL SO4 0.5 % INH SOLN 2.5 MG/0.5 ML VIAL.NEB. NEB SCH ×3 (12:03→20:36)
--- NOTE | 2018-05-21 14:22 | PN ---
Progress Note, Physician History of Present Illness: weakness very fatigued failure to thrive - Current Medication List Current Medications: Active Medications Acetaminophen (Tylenol -) 650 mg NR Q4H PRN PRN Reason: PAIN 1-3 Last Admin: 05/17/18 17:40 Dose: 650 mg Acetylcysteine (Mucomyst 20 Oral / Inh Use Only*) 200 mg NEB RQID [facility] Last Admin: 05/21/18 12:03 Dose: 200 mg Albuterol Sulfate (Ventolin 0.5% -) 1 amp NEB RQID [facility] Last Admin: 05/21/18 12:03 Dose: 1 amp Bisacodyl (Dulcolax Suppository -) 10 mg RC DAILY [facility] Last Admin: 05/20/18 12:35 Dose: Not Given Budesonide/Formoterol Fumarate (Symbicort 80/4.5mcg -) 2 puff IH BID [facility] Last Admin: 05/20/18 22:04 Dose: Not Given Diazepam (Valium -) 5 mg GT TID [facility] Last Admin: 05/21/18 05:53 Dose: 5 mg Docusate Sodium (Colace Liquid -) 300 mg GT DAILY [facility] Last Admin: 05/20/18 12:32 Dose: Not Given Heparin Sodium (Porcine) (Heparin -) 5,000 unit SQ TID [facility] Last Admin: 05/21/18 05:54 Dose: Not Given Vancomycin HCl 1,250 mg/ (Dextrose) 250 mls @ 250 mls/2 hr IVPB Q24H [facility]; Protocol Last Admin: 05/20/18 10:35 Dose: 250 mls/2 hr Meropenem 1 gm/ Dextrose 100 mls @ 200 mls/hr IVPB Q8H-IV [facility] Last Admin: 05/21/18 10:46 Dose: 200 mls/hr Amino Acids (Clinimix -) 1,000 mls @ 42 mls/hr IV Q24H [facility] Last Admin: 05/20/18 16:28 Dose: 42 mls/hr Potassium Phosphate 30 mm/ (Dextrose) 510 mls @ 62.5 mls/hr IVPB ONCE ONE Stop: 05/21/18 18:54 Last Admin: 05/21/18 12:01 Dose: 62.5 mls/hr Ipratropium [place] (Atrovent 0.02% Nebulizer -) 1 amp NEB Q6H PRN PRN Reason: DYSPEPSIA Stop: 05/22/18 12:05 Metoclopramide HCl (Reglan Oral Solution -) 10 mg GT BID [facility] Last Admin: 05/20/18 21:46 Dose: 10 mg Metoprolol Tartrate (Lopressor Injection -) 5 mg IVPUSH Q4H PRN PRN Reason: HYPERTENSION Last Admin: 05/17/18 18:00 Dose: 5 mg Morphine Sulfate (Morphine Sulfate) 1 mg IVPUSH Q4H PRN PRN Reason: PAIN LEVEL 7 - 10 Oxycodone HCl (Roxicodone -) 5 mg GT Q4H PRN PRN Reason: PAIN LEVEL 4 - 6 Last Admin: 05/18/18 17:22 Dose: 5 mg Polyethylene Glycol (Miralax (For Daily Use) -) 17 gm GT DAILY [facility] Last Admin: 05/20/18 12:33 Dose: Not Given Ranitidine HCl (Zantac -) 150 mg NR BID [facility] Last Admin: 05/20/18 21:45 Dose: 150 mg Senna (Senna -) 2 tab PO HS [facility] Last Admin: 05/20/18 21:46 Dose: Not Given - Objective Vital Signs: Vital Signs Temperature 97.6 F 05/21/18 10:00 Pulse Rate 107 H 05/21/18 10:00 Respiratory Rate 22 H 05/21/18 10:00 Blood Pressure 111/79 05/21/18 10:00 O2 Sat by Pulse Oximetry (%) 96 05/21/18 09:00 Constitutional: Yes: Other Cardiovascular: Yes: Regular Rate and Rhythm Respiratory: Yes: Other (on face mask tiring) Gastrointestinal: Yes: Normal Bowel Sounds, Soft, Other (peg in place) Musculoskeletal: Yes: WNL Extremities: Yes: Other Neurological: Yes: Alert, Other Labs: CBC, BMP 05/21/18 05:30 05/21/18 05:30 INR, PTT INR 1.23 (0.83-1.09) H 05/20/18 06:00 Assessment/Plan Problem List - Problems (1) Cavitary lesion of lung Code(s): J98.4 - OTHER DISORDERS OF LUNG (2) COPD (chronic obstructive pulmonary disease) Code(s): J44.9 - CHRONIC OBSTRUCTIVE PULMONARY DISEASE, UNSPECIFIED Qualifiers: COPD type: COPD with acute exacerbation Qualified Code(s): J44.1 - Chronic obstructive pulmonary disease with (acute) exacerbation (3) Constipation Code(s): K59.00 - CONSTIPATION, UNSPECIFIED Qualifiers: Constipation type: unspecified constipation type Qualified Code(s): K59.00 - Constipation, unspecified (4) Dysphagia Code(s): R13.10 - DYSPHAGIA, UNSPECIFIED (5) GERD (gastroesophageal reflux disease) Code(s): K21.9 - GASTRO-ESOPHAGEAL REFLUX DISEASE WITHOUT ESOPHAGITIS (6) Protein-calorie malnutrition, severe Code(s): E43 - UNSPECIFIED SEVERE PROTEIN-CALORIE MALNUTRITION plan abx continue current mgmt nutrition is the spivey drainage awaited rest as per the team
[2018-05-21] MEDS: DOCUSATE NA 100 MG/10 ML UNIT-DOSE CUPS GT SCH (14:29)
[2018-05-21] MEDS: METOCLOPRAMIDE HCL 5 MG/5 ML UNIT DOSE CUP GT SCH ×2 (14:31→21:37)
[2018-05-21] MEDS: BISACODYL 10 MG SUPP.RECT RC SCH (14:31)
[2018-05-21] MEDS: POLYETHYLENE GLYCOL 3350 119 GM BTL GT SCH (14:31)
[2018-05-21] MEDS: BUDESONIDE/FORMETEROL FUMARATE 80/4.5 mcg INHALER IH SCH ×2 (14:32→21:42)
--- NOTE | 2018-05-21 16:31 | PN ---
Teaching Attending Note Name of Resident: Yarely Falcon ATTENDING PHYSICIAN STATEMENT I saw and evaluated the patient. I reviewed the resident's note and discussed the case with the resident. I agree with the resident's findings and plan as documented with exceptions below. SUBJECTIVE: Patient seen and examined. lethargic, denies any pain, minimal responses, poor co-operation. OBJECTIVE: Vital Signs Period Temp Pulse Resp BP Sys/Marroquin Pulse Ox Last 24 Hr 97.4 F-98.2 F 92-107 20-24 97-114/64-79 96-96 Intake & Output 05/18/18 05/19/18 05/20/18 05/21/18 23:59 23:59 23:59 23:59 Intake Total 3195 1630 Output Total 1200 2600 1500 Balance -1200 595 130 General: sitting in bed, lethargic, minimal interaction, minimal use of accessory muslces of respiration Neck: soft suppl Chest: poor effort, left sided rales till mid lung, Decreased air entry right lung, occasional rhonchi Abdomen:Soft, NT, ND Extremities: no edema Home Medications Medication Instructions Recorded Acetaminophen [Tylenol] 325 mg GT QID 09/11/17 Albuterol 0.083% Nebulizer [place] 1 neb NEB Q6H 09/11/17 [Ventolin 0.083% Nebulizer Soln -] Bisacodyl [Biscolax] 10 mg RC DAILY 09/11/17 Diazepam [Valium] 5 mg GT TID 09/11/17 Docusate Liquid [Colace Liquid -] 300 mg GT TID 09/11/17 Lps 16-100 Liquid 30 ml GT BID 09/11/17 Methenamine/Sodium Salicylate 1 each GT DAILY 09/11/17 [Cystex Plus Tablet] Metoclopramide Oral Soln [Reglan 10 mg GT BID 09/11/17 Oral Solution -] Polyethylene Glycol 3350 [Clearlax] 17 gm GT DAILY 09/11/17 Ranitidine [Zantac -] 150 mg GT BID 09/11/17 Sennosides [Senna] 17.2 mg GT HS 09/11/17 Tramadol HCl 50 mg GT TID 09/11/17 Acetaminophen 650 mg PO QID PRN 05/14/18 Metoclopramide Oral Soln [Reglan 10 ml GT TID 05/14/18 Oral Solution -] Moxifloxacin HCl [Vigamox 0.5% -] 1 drop OD TID 05/14/18 Fred/Polymyx B Sulf/Dexameth 1 drop OD DAILY 05/14/18 [Maxitrol Eye Drops -] Prednisolone 1% Ophthalmic [Pred 1 drop OD TID 05/14/18 Forte 1% -] Active Medications Acetaminophen (Tylenol -) 650 mg NR Q4H PRN PRN Reason: PAIN 1-3 Last Admin: 05/17/18 17:40 Dose: 650 mg Acetylcysteine (Mucomyst 20 Oral / Inh Use Only*) 200 mg NEB RQID [facility] Last Admin: 05/21/18 12:03 Dose: 200 mg Albuterol Sulfate (Ventolin 0.5% -) 1 amp NEB ID [facility] Last Admin: 05/21/18 12:03 Dose: 1 amp Bisacodyl (Dulcolax Suppository -) 10 mg RC DAILY [facility] Last Admin: 05/21/18 14:31 Dose: Not Given Budesonide/Formoterol Fumarate (Symbicort 80/4.5mcg -) 2 puff IH BID [facility] Last Admin: 05/21/18 14:32 Dose: Not Given Diazepam (Valium -) 5 mg GT TID [facility] Last Admin: 05/21/18 14:33 Dose: Not Given Docusate Sodium (Colace Liquid -) 300 mg GT DAILY [facility] Last Admin: 05/21/18 14:29 Dose: Not Given Heparin Sodium (Porcine) (Heparin -) 5,000 unit SQ TID [facility] Last Admin: 05/21/18 05:54 Dose: Not Given Vancomycin HCl 1,250 mg/ (Dextrose) 250 mls @ 250 mls/2 hr IVPB Q24H [facility]; Protocol Last Admin: 05/21/18 11:32 Dose: 250 mls/2 hr Meropenem 1 gm/ Dextrose 100 mls @ 200 mls/hr IVPB Q8H-IV [facility] Last Admin: 05/21/18 10:46 Dose: 200 mls/hr Amino Acids (Clinimix -) 1,000 mls @ 42 mls/hr IV Q24H [facility] Last Admin: 05/20/18 16:28 Dose: 42 mls/hr Potassium Phosphate 30 mm/ (Dextrose) 510 mls @ 62.5 mls/hr IVPB ONCE ONE Stop: 05/21/18 18:54 Last Admin: 05/21/18 12:01 Dose: 62.5 mls/hr Ipratropium [place] (Atrovent 0.02% Nebulizer -) 1 amp NEB Q6H PRN PRN Reason: DYSPEPSIA Stop: 05/22/18 12:05 Metoclopramide HCl (Reglan Oral Solution -) 10 mg GT BID [facility] Last Admin: 05/21/18 14:31 Dose: Not Given Metoprolol Tartrate (Lopressor Injection -) 5 mg IVPUSH Q4H PRN PRN Reason: HYPERTENSION Last Admin: 05/17/18 18:00 Dose: 5 mg Morphine Sulfate (Morphine Sulfate) 1 mg IVPUSH Q4H PRN PRN Reason: PAIN LEVEL 7 - 10 Oxycodone HCl (Roxicodone -) 5 mg GT Q4H PRN PRN Reason: PAIN LEVEL 4 - 6 Last Admin: 05/18/18 17:22 Dose: 5 mg Polyethylene Glycol (Miralax (For Daily Use) -) 17 gm GT DAILY [facility] Last Admin: 05/21/18 14:31 Dose: Not Given Ranitidine HCl (Zantac -) 150 mg NR BID [facility] Last Admin: 05/21/18 10:32 Dose: 150 mg Senna (Senna -) 2 tab PO HS [facility] Last Admin: 05/20/18 21:46 Dose: Not Given Laboratory Results - last 24 hr 05/21/18 05/21/18 05/21/18 05:30 05:30 10:08 WBC 15.9 H RBC 3.13 L Hgb 9.6 L Hct 29.6 L MCV 94.8 MCH 30.7 MCHC 32.4 RDW 14.6 Plt Count 350 MPV 7.8 D Absolute Neuts (auto) 13.9 H Neutrophils % 87.4 H Lymphocytes % 4.6 L Monocytes % 7.6 Eosinophils % 0.2 Basophils % 0.2 Nucleated RBC % 0 Sodium 137 Potassium 3.4 L Chloride 94 L Carbon Dioxide 37 H Anion Gap 5 L BUN 8 Creatinine 0.2 L Creat Clearance w eGFR > 60 Random Glucose 95 Calcium 7.7 L Phosphorus 1.5 L Magnesium 1.8 Vancomycin Pre-Dose 4.2 L Microbiology 05/15/18 12:54 Blood - Peripheral Venous Blood Culture - Final NO GROWTH AFTER 5 DAYS INCUBATION 05/15/18 12:05 Blood - Peripheral Venous Blood Culture - Final NO GROWTH AFTER 5 DAYS INCUBATION 05/15/18 22:20 Urine - Urine Suprapubic Urine Culture - Final Enterococcus Faecalis 05/15/18 22:20 Urine For Antigen Detection Legionella Antigen - Final 05/15/18 22:20 Urine For Antigen Detection Streptococcus pneumoniae Antigen (M - Final CT chest images and results reviewed ASSESSMENT AND PLAN: 62 yom with pMHx of muscular dystonia, peg, sent from CT with abnormal CXR/PNA -Acute hypoxemic respiratory failure -Lung abscess, suspect from recurrent aspiration -Left lung collapse, suspect related to mucous pluggin -Aspiration -Muscular dystonia -Hypokalemia -Hypophosphatemia Plan: Per discussion with Dr. Joe, not candidate for IR guided drainage, given already draining in tracheobronchial tree. Per discussion with dr. Garcia, not a candidate for bronchoscopy given high risk given tenuous respiratory failure. Meropenem/vancomycin per ID. Mucomyst/chest PT. Replete k/phos. Poor prognosis Palliative care consult to address overall goals of care. Plan discussed with nursing.
--- NOTE | 2018-05-21 17:50 | PN ---
Physical Exam: SUBJECTIVE: Patient seen and examined at bed side this morning. Too lethargic to talk. When asked if he is in pain, he noded and said no. Offered to call his family, but he said no. OBJECTIVE: Vital Signs Period Temp Pulse Resp BP Sys/Marroquin Pulse Ox Last 24 Hr 97.4 F-98.2 F 92-107 20-24 97-114/64-79 96-96 GENERAL: Middle aged male, cachectic, lying in bed, in respiratory distress, on non rebreather, patient is awake, lethargic, minimal conversation HEAD: Normal with no signs of trauma. EYES: No Pallor or icterus. ENT: Ears normal, dry mucous membranes. NECK: Supple. LUNGS: Coarse breath sounds +. Using assessory muscles. HEART: Tachycardic, Regular rate and rhythm, S1, S2 without murmur. ABDOMEN: Suprapubic tube in place, PEG, Soft, nontender, no organomegaly. EXTREMITIES: 2+ pulses, warm, well-perfused, no edema. NEUROLOGICAL: No facial droop. Normal speech, gait not observed. PSYCH: Normal mood, normal affect. SKIN: Warm, dry, normal turgor, no rashes or lesions noted Laboratory Results - last 24 hr 05/21/18 05/21/18 05/21/18 05:30 05:30 10:08 WBC 15.9 H RBC 3.13 L Hgb 9.6 L Hct 29.6 L MCV 94.8 MCH 30.7 MCHC 32.4 RDW 14.6 Plt Count 350 MPV 7.8 D Absolute Neuts (auto) 13.9 H Neutrophils % 87.4 H Lymphocytes % 4.6 L Monocytes % 7.6 Eosinophils % 0.2 Basophils % 0.2 Nucleated RBC % 0 Sodium 137 Potassium 3.4 L Chloride 94 L Carbon Dioxide 37 H Anion Gap 5 L BUN 8 Creatinine 0.2 L Creat Clearance w eGFR > 60 Random Glucose 95 Calcium 7.7 L Phosphorus 1.5 L Magnesium 1.8 Vancomycin Pre-Dose 4.2 L Active Medications Generic Name Dose Route Start Last Admin Trade Name Freq PRN Reason Stop Dose Admin Acetaminophen 650 mg 05/14/18 17:04 05/17/18 17:40 Tylenol - NR 650 mg Q4H PRN Administration PAIN 1-3 Acetylcysteine 200 mg 05/21/18 12:00 05/21/18 15:50 Mucomyst 20 Oral / Inh Use Only* NEB 200 mg RQID [facility] Administration Albuterol Sulfate 1 amp 05/21/18 12:00 05/21/18 15:50 Ventolin 0.5% - NEB 1 amp RQID [facility] Administration Bisacodyl 10 mg 05/15/18 10:00 05/21/18 14:31 Dulcolax Suppository - RC Not Given DAILY [facility] Budesonide/Formoterol Fumarate 2 puff 05/15/18 22:00 05/21/18 14:32 Symbicort 80/4.5mcg - IH Not Given BID [facility] Diazepam 5 mg 05/14/18 22:00 05/21/18 14:33 Valium - GT Not Given TID [facility] Docusate Sodium 300 mg 05/15/18 10:00 05/21/18 14:29 Colace Liquid - GT Not Given DAILY [facility] Heparin Sodium (Porcine) 5,000 unit 05/15/18 22:00 05/21/18 05:54 Heparin - SQ Not Given TID [facility] Vancomycin HCl 1,250 mg/ 250 mls @ 250 mls/2 hr 05/15/18 10:45 05/21/18 11:32 Dextrose IVPB 250 mls/2 hr Q24H [facility] Administration Protocol Meropenem 1 gm/ Dextrose 100 mls @ 200 mls/hr 05/15/18 11:00 05/21/18 10:46 IVPB 200 mls/hr Q8H-IV [facility] Administration Amino Acids 1,000 mls @ 42 mls/hr 05/20/18 16:15 05/20/18 16:28 Clinimix - IV 42 mls/hr Q24H [facility] Administration Potassium Phosphate 30 mm/ 510 mls @ 62.5 mls/hr 05/21/18 10:45 05/21/18 12: 01 Dextrose IVPB 05/21/18 18:54 62.5 mls/hr ONCE ONE Administration Ipratropium [place] 1 amp 05/15/18 12:04 Atrovent 0.02% Nebulizer - NEB 05/22/18 12:05 Q6H PRN DYSPEPSIA Metoclopramide HCl 10 mg 05/14/18 22:00 05/21/18 14:31 Reglan Oral Solution - GT Not Given BID [facility] Metoprolol Tartrate 5 mg 05/15/18 12:06 05/17/18 18:00 Lopressor Injection - IVPUSH 5 mg Q4H PRN Administration HYPERTENSION Morphine Sulfate 1 mg 05/17/18 14:22 Morphine Sulfate IVPUSH Q4H PRN PAIN LEVEL 7 - 10 Oxycodone HCl 5 mg 05/17/18 14:26 05/18/18 17:22 Roxicodone - GT 5 mg Q4H PRN Administration PAIN LEVEL 4 - 6 Polyethylene Glycol 17 gm 05/15/18 10:00 05/21/18 14:31 Miralax (For Daily Use) - GT Not Given DAILY [facility] Ranitidine HCl 150 mg 05/14/18 22:00 05/21/18 10:32 Zantac - NR 150 mg BID [facility] Administration Senna 2 tab 05/14/18 22:00 05/20/18 21:46 Senna - PO Not Given HS [facility] Repeat Chest CT was done 05/20/18 which shows decreasing size of fluid collection since 05/14/18. Development of large right pleural effusion with lower lobe consolidation. Dev of moderate left pleural effusion with lower lobe consolidation with almost complete atelectasis of the left lung. ASSESSMENT/PLAN: Patient is a 61-year old male, with history of bronchiectasis, neurogenic bladder with a suprapubic tube, asthma,COPD, GERD, HTN, carpal tunnel, hemoptysis, dysphagsia requiring a peg tub for feed. dystonia for 32 yrs, bronchiectasis was sent from [facility] for evaluation of abnormal CXR. # Lung mass necrotizing mass vs abscess vs malignancy with collapsed left lung Repeat Chest CT was done 05/20/18 report as above Discussed with IR who mentioned that it cannot be drained as it has spread in the tracheobronchial tree Discussed with pulmonary regarding bronchoscopy for collapsed lung, patient is too unstable for the procedure Called patients brother regarding patient's medical condition and poor prognosis, he verbalized understanding. Palliative care consult requested. # Sepsis from acute hypoxic respiratory failure likely secondary to aspiration and UTI (E.faecalis) Continue Merepenam and Vancomycin Day 7 IV clinimix @ 42 mls.hr Continue Chest PT, Ipratropium nebs, Symbicort. Mucomyst added today # Sinus tachycardia Likely from sepsis vs anxiety. Cardiac unlikely, ekg normal, echo normal. No events on tele. Metoprolol 5mg Q4H PRN # Dysphagia PEG tube in place. Hold feeds for now for possible procedure. # Normocytic anemia H/H Stable since last admission. Will monitor # Constipation Continue Bowel regimen. # FEN IV Clinimix @ 42 ml/hr started Electrolytes to be repeated in AM. Repleted phos NPO for now, no feeding from the PEG tube, aspiration precautions. # Prophylaxis For DVT: SCDs For GI: On Ranitidine # Code Status: DNR/DNR. Prognosis guarded. # Dispo: Duration of stay unknown. Admitted in Tele. Plan of care explained to the patient. He verbalized understanding. Case discussed with Dr. Prince. Problem List - Problems (1) Lung abscess Code(s): J85.2 - ABSCESS OF LUNG WITHOUT PNEUMONIA Qualifiers: Pulmonary abscess pneumonia presence: without pneumonia Laterality: left Lung location: upper lobe of lung Qualified Code(s): J85.2 - Abscess of lung without pneumonia (2) Sepsis Code(s): A41.9 - SEPSIS, UNSPECIFIED ORGANISM (3) Aspiration of formula Code(s): P24.30 - ASPIRAT OF MILK AND REGURGITATED FOOD W/O RESP SYMP (4) Asthma Code(s): J45.909 - UNSPECIFIED ASTHMA, UNCOMPLICATED (5) COPD (chronic obstructive pulmonary disease) Code(s): J44.9 - CHRONIC OBSTRUCTIVE PULMONARY DISEASE, UNSPECIFIED Qualifiers: COPD type: COPD with acute exacerbation Qualified Code(s): J44.1 - Chronic obstructive pulmonary disease with (acute) exacerbation (6) Cavitary lesion of lung Code(s): J98.4 - OTHER DISORDERS OF LUNG Visit type - Emergency Visit Emergency Visit: Yes ED Registration Date: 05/15/18 Care time: The patient presented to the Emergency Department on the above date and was hospitalized for further evaluation of their emergent condition. - New Patient This patient is new to me today: No - Critical Care Critical Care patient: No - Discharge Referral Referred to [facility] Med P.C.: No
[2018-05-21] MEDS: AMINO ACIDS 4.25%/D5W 1,000 ML IV SCH (17:52)
[2018-05-21] MEDS: SENNOSIDES 8.6MG TABLET (FP) PO SCH (21:42)
[2018-05-22] MEDS: MEROPENEM 1 GM in DEXTROSE 5%-WATER 100 ML IVPB SCH ×3 (01:21→18:25)
[2018-05-22] MEDS: diazePAM 5 MG TABLET GT SCH ×3 (06:40→21:59)
[2018-05-22] MEDS: HEPARIN NA (PORCINE) 5,000 UNITS/ML 1ML VIAL SQ SCH ×3 (06:44→21:58)
[2018-05-22 07:01] LABS: HEMATOCRIT 27.8 % (35.4-49); HEMOGLOBIN 8.8 GM/dL (11.7-16.9); MCH 30.2 pg (25.7-33.7); MCHC 31.6 g/dl (32.0-35.9); MEAN CELL VOLUME 95.8 fl (80-96); MEAN PLT VOLUME 7.4 fl (7.5-11.1); PLATELET COUNT 311 K/MM3 (134-434); RDW 14.2 % (11.9-15.9); WHITE BLOOD COUNT 12.6 K/mm3 (4.0-10.0)
[2018-05-22 07:17] LABS: ALBUMIN 1.3 g/dl (3.4-5.0); ALK PHOS 159 U/L (45-117); ANION GAP 3 MMOL/L (8-16); BILIRUBIN,TOTAL 0.3 mg/dL (0.2-1); BLOOD UREA NITROGEN 10 mg/dL (7-18); CALCIUM 7.7 mg/dL (8.5-10.1); CHLORIDE 92 mmol/L (98-107); CO2 42 mmol/L (21-32); CREATININE 0.2 mg/dL (0.55-1.3); GLUCOSE,RANDOM 101 mg/dL (74-106); MAGNESIUM 2.1 mg/dL (1.8-2.4); PHOSPHOROUS 2.3 mg/dL (2.5-4.9); POTASSIUM 3.5 mmol/L (3.5-5.1); SGOT/AST 45 U/L (15-37); SGPT/ALT 26 U/L (13-61); SODIUM 138 mmol/L (136-145); TOT PROT 4.9 g/dl (6.4-8.2)
[2018-05-22] MEDS: ACETYLCYSTEINE 20% 200MG/ML 4 ML VIAL *FOR ORAL / INH USE ONLY NEB SCH ×4 (08:17→20:55)
[2018-05-22] MEDS: ALBUTEROL SO4 0.5 % INH SOLN 2.5 MG/0.5 ML VIAL.NEB. NEB SCH ×4 (08:17→20:55)
[2018-05-22] MEDS: RANITIDINE HCL 150 MG TABLET (FP) NR SCH (09:27)
[2018-05-22] MEDS ORDERED: PT OWN MED DRAWER 7, Y5N ONE ×2 (10:45→17:16)
[2018-05-22] MEDS: POLYETHYLENE GLYCOL 3350 119 GM BTL GT SCH (11:21)
[2018-05-22] MEDS: BISACODYL 10 MG SUPP.RECT RC SCH (11:21)
[2018-05-22] MEDS: DOCUSATE NA 100 MG/10 ML UNIT-DOSE CUPS GT SCH (11:21)
[2018-05-22] MEDS: METOCLOPRAMIDE HCL 5 MG/5 ML UNIT DOSE CUP GT SCH ×2 (11:22→21:58)
[2018-05-22] MEDS: BUDESONIDE/FORMETEROL FUMARATE 80/4.5 mcg INHALER IH SCH ×2 (11:25→21:58)
[2018-05-22] MEDS: VANCOMYCIN 1,250 MG in DEXTROSE 5%-WATER - 250 ML IVPB SCH (11:26)
--- NOTE | 2018-05-22 12:25 | PN ---
Progress Note (short form) - Note Progress Note: PULMONARY Lethargic on NRB. No fevers recorded. Vital Signs Period Temp Pulse Resp BP Sys/Marroquin Pulse Ox Last 24 Hr 97.4 F-98.2 F 85-100 22-24 94-97/62-64 99 Gen: lethargic, cachectic Heart: RRR Lung: distant breath sounds Abd: soft, nontender Ext: no edema CBC, BMP 05/22/18 05:30 05/22/18 06:00 Active Medications Acetaminophen (Tylenol -) 650 mg NR Q4H PRN PRN Reason: PAIN 1-3 Last Admin: 05/17/18 17:40 Dose: 650 mg Acetylcysteine (Mucomyst 20 Oral / Inh Use Only*) 200 mg NEB RQID [facility] Last Admin: 05/22/18 11:33 Dose: 200 mg Albuterol Sulfate (Ventolin 0.5% -) 1 amp NEB RQID [facility] Last Admin: 05/22/18 11:33 Dose: 1 amp Bisacodyl (Dulcolax Suppository -) 10 mg RC DAILY [facility] Last Admin: 05/22/18 11:21 Dose: Not Given Budesonide/Formoterol Fumarate (Symbicort 80/4.5mcg -) 2 puff IH BID [facility] Last Admin: 05/22/18 11:25 Dose: Not Given Diazepam (Valium -) 5 mg GT TID [facility] Last Admin: 05/22/18 06:40 Dose: Not Given Docusate Sodium (Colace Liquid -) 300 mg GT DAILY [facility] Last Admin: 05/22/18 11:21 Dose: Not Given Heparin Sodium (Porcine) (Heparin -) 5,000 unit SQ TID [facility] Last Admin: 05/22/18 06:44 Dose: 5,000 unit Vancomycin HCl 1,250 mg/ (Dextrose) 250 mls @ 250 mls/2 hr IVPB Q24H [facility]; Protocol Last Admin: 05/22/18 11:26 Dose: 250 mls/2 hr Meropenem 1 gm/ Dextrose 100 mls @ 200 mls/hr IVPB Q8H-IV [facility] Last Admin: 05/22/18 11:21 Dose: 200 mls/hr Amino Acids (Clinimix -) 1,000 mls @ 42 mls/hr IV Q24H [facility] Last Admin: 05/21/18 17:52 Dose: 42 mls/hr Metoclopramide HCl (Reglan Oral Solution -) 10 mg GT BID [facility] Last Admin: 05/22/18 11:22 Dose: 10 mg Metoprolol Tartrate (Lopressor Injection -) 5 mg IVPUSH Q4H PRN PRN Reason: HYPERTENSION Last Admin: 05/17/18 18:00 Dose: 5 mg Morphine Sulfate (Morphine Sulfate) 1 mg IVPUSH Q4H PRN PRN Reason: PAIN LEVEL 7 - 10 Oxycodone HCl (Roxicodone -) 5 mg GT Q4H PRN PRN Reason: PAIN LEVEL 4 - 6 Last Admin: 05/18/18 17:22 Dose: 5 mg Polyethylene Glycol (Miralax (For Daily Use) -) 17 gm GT DAILY [facility] Last Admin: 05/22/18 11:21 Dose: Not Given Ranitidine HCl (Zantac Oral Solution -) 150 mg GT BID [facility] Senna (Senna -) 2 tab PO HS [facility] Last Admin: 05/21/18 21:42 Dose: Not Given A/P Muscular Dystonia Pneumonia likely Aspiration Lung Abscess Dysphagia s/p PEG - continue antibiotics - inhaled bronchodilators - O2 to keep SpO2 >90% - aspiration precautions - prognosis guarded - pt DNR/DNI, continue discussions regarding goals of care
--- NOTE | 2018-05-22 13:10 | PN ---
Progress Note (short form) - Note Progress Note: s: sob a little less, no cp palps dizzy o: Vital Signs Period Temp Pulse Resp BP Sys/Marroquin Pulse Ox Last 24 Hr 97.4 F-98.2 F 68-100 20-24 94-97/62-70 99-100 nad no jvd scattered rhonci, nl eff rrr s1s2 no mrg no le e/c/c no jaundice diaphoresis aaox3 abd nt nd pos bs Current Medications Generic Name Dose Route Start Last Admin Trade Name Freq PRN Reason Stop Dose Admin Acetaminophen 650 mg 05/14/18 17:04 05/17/18 17:40 Tylenol - NR 650 mg Q4H PRN Administration PAIN 1-3 Acetylcysteine 200 mg 05/21/18 12:00 05/22/18 11:33 Mucomyst 20 Oral / Inh Use Only* NEB 200 mg RQID [facility] Administration Albuterol Sulfate 1 amp 05/21/18 12:00 05/22/18 11:33 Ventolin 0.5% - NEB 1 amp RQID [facility] Administration Bisacodyl 10 mg 05/15/18 10:00 05/22/18 11:21 Dulcolax Suppository - RC Not Given DAILY [facility] Budesonide/Formoterol Fumarate 2 puff 05/15/18 22:00 05/22/18 11:25 Symbicort 80/4.5mcg - IH Not Given BID [facility] Diazepam 5 mg 05/14/18 22:00 05/22/18 06:40 Valium - GT Not Given TID [facility] Docusate Sodium 300 mg 05/15/18 10:00 05/22/18 11:21 Colace Liquid - GT Not Given DAILY [facility] Heparin Sodium (Porcine) 5,000 unit 05/15/18 22:00 05/22/18 06:44 Heparin - SQ 5,000 unit TID [facility] Administration Vancomycin HCl 1,250 mg/ 250 mls @ 250 mls/2 hr 05/15/18 10:45 05/22/18 11:26 Dextrose IVPB 250 mls/2 hr Q24H [facility] Administration Protocol Meropenem 1 gm/ Dextrose 100 mls @ 200 mls/hr 05/15/18 11:00 05/22/18 11:21 IVPB 200 mls/hr Q8H-IV [facility] Administration Amino Acids 1,000 mls @ 42 mls/hr 05/20/18 16:15 05/21/18 17:52 Clinimix - IV 42 mls/hr Q24H [facility] Administration Metoclopramide HCl 10 mg 05/14/18 22:00 05/22/18 11:22 Reglan Oral Solution - GT 10 mg BID [facility] Administration Metoprolol Tartrate 5 mg 05/15/18 12:06 05/17/18 18:00 Lopressor Injection - IVPUSH 5 mg Q4H PRN Administration HYPERTENSION Morphine Sulfate 1 mg 05/17/18 14:22 Morphine Sulfate IVPUSH Q4H PRN PAIN LEVEL 7 - 10 Oxycodone HCl 5 mg 05/17/18 14:26 05/18/18 17:22 Roxicodone - GT 5 mg Q4H PRN Administration PAIN LEVEL 4 - 6 Polyethylene Glycol 17 gm 05/15/18 10:00 05/22/18 11:21 Miralax (For Daily Use) - GT Not Given DAILY [facility] Ranitidine HCl 150 mg 05/22/18 10:53 Zantac Oral Solution - GT BID [facility] Senna 2 tab 05/14/18 22:00 05/21/18 21:42 Senna - PO Not Given HS [facility] CBC, BMP 05/22/18 05:30 05/22/18 06:00 ecg: sinus tach, nl intervals, irbbb echo 04/2018: tds; nl lv/rv, mod tr, nl rvsp ct chest: rul mass/fluid collection a/p: 62 m hx muscular dystonia, peg, [place], sent [place] for abnl cxr/ pna. pna, lung abscess: -abx per ID sinus tachy: -echo and ecg unremarkable -tele showed sinus tach, no arrhythmias -sinus tach 2/2 pna/resp distress. Continue to treat underlying issues, no specific tx needed for HR at this time.
--- NOTE | 2018-05-22 15:32 | PN ---
Progress Note, Physician History of Present Illness: no gross change very weak barely opens his eyes - Current Medication List Current Medications: Active Medications Acetaminophen (Tylenol -) 650 mg NR Q4H PRN PRN Reason: PAIN 1-3 Last Admin: 05/17/18 17:40 Dose: 650 mg Acetylcysteine (Mucomyst 20 Oral / Inh Use Only*) 200 mg NEB RQID [facility] Last Admin: 05/22/18 11:33 Dose: 200 mg Albuterol Sulfate (Ventolin 0.5% -) 1 amp NEB RQID [facility] Last Admin: 05/22/18 11:33 Dose: 1 amp Bisacodyl (Dulcolax Suppository -) 10 mg RC DAILY [facility] Last Admin: 05/22/18 11:21 Dose: Not Given Budesonide/Formoterol Fumarate (Symbicort 80/4.5mcg -) 2 puff IH BID [facility] Last Admin: 05/22/18 11:25 Dose: Not Given Diazepam (Valium -) 5 mg GT TID [facility] Last Admin: 05/22/18 15:01 Dose: Not Given Docusate Sodium (Colace Liquid -) 300 mg GT DAILY [facility] Last Admin: 05/22/18 11:21 Dose: Not Given Heparin Sodium (Porcine) (Heparin -) 5,000 unit SQ TID [facility] Last Admin: 05/22/18 15:02 Dose: 5,000 unit Vancomycin HCl 1,250 mg/ (Dextrose) 250 mls @ 250 mls/2 hr IVPB Q24H [facility]; Protocol Last Admin: 05/22/18 11:26 Dose: 250 mls/2 hr Meropenem 1 gm/ Dextrose 100 mls @ 200 mls/hr IVPB Q8H-IV [facility] Last Admin: 05/22/18 11:21 Dose: 200 mls/hr Amino Acids (Clinimix -) 1,000 mls @ 42 mls/hr IV Q24H [facility] Last Admin: 05/21/18 17:52 Dose: 42 mls/hr Metoclopramide HCl (Reglan Oral Solution -) 10 mg GT BID [facility] Last Admin: 05/22/18 11:22 Dose: 10 mg Metoprolol Tartrate (Lopressor Injection -) 5 mg IVPUSH Q4H PRN PRN Reason: HYPERTENSION Last Admin: 05/17/18 18:00 Dose: 5 mg Morphine Sulfate (Morphine Sulfate) 1 mg IVPUSH Q4H PRN PRN Reason: PAIN LEVEL 7 - 10 Oxycodone HCl (Roxicodone -) 5 mg GT Q4H PRN PRN Reason: PAIN LEVEL 4 - 6 Last Admin: 05/18/18 17:22 Dose: 5 mg Polyethylene Glycol (Miralax (For Daily Use) -) 17 gm GT DAILY [facility] Last Admin: 05/22/18 11:21 Dose: Not Given Ranitidine HCl (Zantac Oral Solution -) 150 mg GT BID [facility] Senna (Senna -) 2 tab PO HS [facility] Last Admin: 05/21/18 21:42 Dose: Not Given - Objective Vital Signs: Vital Signs Temperature 98.1 F 05/22/18 14:00 Pulse Rate 90 05/22/18 14:00 Respiratory Rate 20 05/22/18 14:00 Blood Pressure 88/56 L 05/22/18 14:00 O2 Sat by Pulse Oximetry (%) 100 05/22/18 09:00 Constitutional: Yes: Other Cardiovascular: Yes: Regular Rate and Rhythm Respiratory: Yes: Poor Air Entry, Other (on ventimask weak resp effort) Gastrointestinal: Yes: Normal Bowel Sounds, Soft, Other (peg in place) Neurological: Yes: Other Labs: CBC, BMP 05/22/18 05:30 05/22/18 06:00 INR, PTT INR 1.23 (0.83-1.09) H 05/20/18 06:00 Assessment/Plan Problem List - Problems (1) Cavitary lesion of lung Code(s): J98.4 - OTHER DISORDERS OF LUNG (2) COPD (chronic obstructive pulmonary disease) Code(s): J44.9 - CHRONIC OBSTRUCTIVE PULMONARY DISEASE, UNSPECIFIED Qualifiers: COPD type: COPD with acute exacerbation Qualified Code(s): J44.1 - Chronic obstructive pulmonary disease with (acute) exacerbation (3) Constipation Code(s): K59.00 - CONSTIPATION, UNSPECIFIED Qualifiers: Constipation type: unspecified constipation type Qualified Code(s): K59.00 - Constipation, unspecified (4) Dysphagia Code(s): R13.10 - DYSPHAGIA, UNSPECIFIED (5) GERD (gastroesophageal reflux disease) Code(s): K21.9 - GASTRO-ESOPHAGEAL REFLUX DISEASE WITHOUT ESOPHAGITIS (6) Protein-calorie malnutrition, severe Code(s): E43 - UNSPECIFIED SEVERE PROTEIN-CALORIE MALNUTRITION plan abx continue current mgmt nutrition is the spivey drainage awaited rest as per the team
--- NOTE | 2018-05-22 15:57 | PN ---
Teaching Attending Note Name of Resident: Yarely Falcon ATTENDING PHYSICIAN STATEMENT I saw and evaluated the patient. I reviewed the resident's note and discussed the case with the resident. I agree with the resident's findings and plan as documented with exceptions below. SUBJECTIVE: Patient seen and examined. lethargic, but responds appropriately with nodding and minimal words. Denies pain or trouble breathing. OBJECTIVE: Vital Signs Period Temp Pulse Resp BP Sys/Marroquin Pulse Ox Last 24 Hr 97.4 F-98.2 F 68-94 20-22 88-96/56-70 99-100 Intake & Output 05/19/18 05/20/18 05/21/18 05/22/18 23:59 23:59 23:59 23:59 Intake Total 3195 1630 604 Output Total 1200 2600 2450 2200 Balance -1200 595 -820 -1596 General: lethargic but responsive and appropriate, on NRB in bed Chest: bibasilar rales,right midlung rales, decreased effort, positive air entry Abdomen:soft, NT, ND, PEG in place, suprapubuc catheter in place Extremities: no edema Home Medications Medication Instructions Recorded Acetaminophen [Tylenol] 325 mg GT QID 09/11/17 Albuterol 0.083% Nebulizer Jojo 1 neb NEB Q6H 09/11/17 [Ventolin 0.083% Nebulizer Soln -] Bisacodyl [Biscolax] 10 mg RC DAILY 09/11/17 Diazepam [Valium] 5 mg GT TID 09/11/17 Docusate Liquid [Colace Liquid -] 300 mg GT TID 09/11/17 Lps 16-100 Liquid 30 ml GT BID 09/11/17 Methenamine/Sodium Salicylate 1 each GT DAILY 09/11/17 [Cystex Plus Tablet] Metoclopramide Oral Soln [Reglan 10 mg GT BID 09/11/17 Oral Solution -] Polyethylene Glycol 3350 [Clearlax] 17 gm GT DAILY 09/11/17 Ranitidine [Zantac -] 150 mg GT BID 09/11/17 Sennosides [Senna] 17.2 mg GT HS 09/11/17 Tramadol HCl 50 mg GT TID 09/11/17 Acetaminophen 650 mg PO QID PRN 05/14/18 Metoclopramide Oral Soln [Reglan 10 ml GT TID 05/14/18 Oral Solution -] Moxifloxacin HCl [Vigamox 0.5% -] 1 drop OD TID 05/14/18 Fred/Polymyx B Sulf/Dexameth 1 drop OD DAILY 05/14/18 [Maxitrol Eye Drops -] Prednisolone 1% Ophthalmic [Pred 1 drop OD TID 05/14/18 Forte 1% -] Active Medications Acetaminophen (Tylenol -) 650 mg NR Q4H PRN PRN Reason: PAIN 1-3 Last Admin: 05/17/18 17:40 Dose: 650 mg Acetylcysteine (Mucomyst 20 Oral / Inh Use Only*) 200 mg NEB RQID [facility] Last Admin: 05/22/18 11:33 Dose: 200 mg Albuterol Sulfate (Ventolin 0.5% -) 1 amp NEB ID [facility]PL[facility] Last Admin: 05/22/18 11:33 Dose: 1 amp Bisacodyl (Dulcolax Suppository -) 10 mg RC DAILY [facility] Last Admin: 05/22/18 11:21 Dose: Not Given Budesonide/Formoterol Fumarate (Symbicort 80/4.5mcg -) 2 puff IH BID [facility] Last Admin: 05/22/18 11:25 Dose: Not Given Diazepam (Valium -) 5 mg GT TID [facility] Last Admin: 05/22/18 15:01 Dose: Not Given Docusate Sodium (Colace Liquid -) 300 mg GT DAILY [facility] Last Admin: 05/22/18 11:21 Dose: Not Given Heparin Sodium (Porcine) (Heparin -) 5,000 unit SQ TID [facility] Last Admin: 05/22/18 15:02 Dose: 5,000 unit Vancomycin HCl 1,250 mg/ (Dextrose) 250 mls @ 250 mls/2 hr IVPB Q24H [facility]; Protocol Last Admin: 05/22/18 11:26 Dose: 250 mls/2 hr Meropenem 1 gm/ Dextrose 100 mls @ 200 mls/hr IVPB Q8H-IV [facility] Last Admin: 05/22/18 11:21 Dose: 200 mls/hr Amino Acids (Clinimix -) 1,000 mls @ 75 mls/hr IV Q24H [facility] Metoclopramide HCl (Reglan Oral Solution -) 10 mg GT BID [facility] Last Admin: 05/22/18 11:22 Dose: 10 mg Metoprolol Tartrate (Lopressor Injection -) 5 mg IVPUSH Q4H PRN PRN Reason: HYPERTENSION Last Admin: 05/17/18 18:00 Dose: 5 mg Morphine Sulfate (Morphine Sulfate) 1 mg IVPUSH Q4H PRN PRN Reason: PAIN LEVEL 7 - 10 Oxycodone HCl (Roxicodone -) 5 mg GT Q4H PRN PRN Reason: PAIN LEVEL 4 - 6 Last Admin: 05/18/18 17:22 Dose: 5 mg Polyethylene Glycol (Miralax (For Daily Use) -) 17 gm GT DAILY [facility] Last Admin: 05/22/18 11:21 Dose: Not Given Ranitidine HCl (Zantac Oral Solution -) 150 mg GT BID [facility] Senna (Senna -) 2 tab PO HS [facility] Last Admin: 05/21/18 21:42 Dose: Not Given Laboratory Results - last 24 hr 05/22/18 05/22/18 05:30 06:00 WBC 12.6 H RBC 2.90 L Hgb 8.8 L Hct 27.8 L MCV 95.8 MCH 30.2 MCHC 31.6 L RDW 14.2 Plt Count 311 MPV 7.4 L Sodium 138 Potassium 3.5 Chloride 92 L Carbon Dioxide 42 H Anion Gap 3 L BUN 10 Creatinine 0.2 L Creat Clearance w eGFR > 60 Random Glucose 101 Calcium 7.7 L Phosphorus 2.3 L Magnesium 2.1 Total Bilirubin 0.3 AST 45 H ALT 26 Alkaline Phosphatase 159 H Total Protein 4.9 L Albumin 1.3 L Microbiology 05/15/18 12:54 Blood - Peripheral Venous Blood Culture - Final NO GROWTH AFTER 5 DAYS INCUBATION 05/15/18 12:05 Blood - Peripheral Venous Blood Culture - Final NO GROWTH AFTER 5 DAYS INCUBATION 05/15/18 22:20 Urine - Urine Suprapubic Urine Culture - Final Enterococcus Faecalis 05/15/18 22:20 Urine For Antigen Detection Legionella Antigen - Final 05/15/18 22:20 Urine For Antigen Detection Streptococcus pneumoniae Antigen (M - Final ASSESSMENT AND PLAN: 62 yom with pMHx of muscular dystonia, peg, sent from [place] with abnormal CXR/PNA -Acute hypoxemic respiratory failure -Lung abscess, suspect from recurrent aspiration -Left lung collapse, suspect related to mucous pluggin -Aspiration -Muscular dystonia -Hypokalemia -Hypophosphatemia -Hypotension Plan: Per discussion with Dr. Joe, not candidate for IR guided drainage, given already draining in tracheobronchial tree. Per discussion with dr. Garcia, not a candidate for bronchoscopy given high risk given tenuous respiratory failure. Vancomycin d/manolo. meropenem per ID. Mucomyst/chest PT as able. Replete k/phos. Increse rate of fluids/clinimix. Poor prognosis at this point. DNR/DNI. Not a candidate for bipap given high aspiration risk and lack of effort/co- operation on NRB currently. Palliative care input noted. Discussed with patient, in case of clinical deterioration, agreable to comfort. Plan discussed with nursing in detail, all questions answered.
--- NOTE | 2018-05-22 16:18 | PN ---
Physical Exam: SUBJECTIVE: Patient seen and examined at bed side. Lethargic to speak. Discussed about his present medical condition. Explained to the patient that prognosis is guarded, also asked if he wants to be resuscitated or placed in mechanical ventilator if needed, patient wants to continue current management and continues to be a DNR/DNI. Vital Signs Period Temp Pulse Resp BP Sys/Marroquin Pulse Ox Last 24 Hr 97.4 F-98.2 F 68-94 20-22 88-96/56-70 99-100 GENERAL: Middle aged male, cachectic, lying in bed, in respiratory distress, on non rebreather, patient is awake, lethargic, minimal conversation HEAD: Normal with no signs of trauma. EYES: No Pallor or icterus. ENT: Ears normal, dry mucous membranes. NECK: Supple. LUNGS: Coarse breath sounds +. Using assessory muscles. HEART: Tachycardic, Regular rate and rhythm, S1, S2 without murmur. ABDOMEN: Suprapubic tube in place, PEG, Soft, nontender, no organomegaly. EXTREMITIES: 2+ pulses, warm, well-perfused, no edema. NEUROLOGICAL: No facial droop. Normal speech, gait not observed. PSYCH: Normal mood, normal affect. SKIN: Warm, dry, normal turgor, no rashes or lesions noted Laboratory Results - last 24 hr 05/22/18 05/22/18 05:30 06:00 WBC 12.6 H RBC 2.90 L Hgb 8.8 L Hct 27.8 L MCV 95.8 MCH 30.2 MCHC 31.6 L RDW 14.2 Plt Count 311 MPV 7.4 L Sodium 138 Potassium 3.5 Chloride 92 L Carbon Dioxide 42 H Anion Gap 3 L BUN 10 Creatinine 0.2 L Creat Clearance w eGFR > 60 Random Glucose 101 Calcium 7.7 L Phosphorus 2.3 L Magnesium 2.1 Total Bilirubin 0.3 AST 45 H ALT 26 Alkaline Phosphatase 159 H Total Protein 4.9 L Albumin 1.3 L Active Medications Generic Name Dose Route Start Last Admin Trade Name Freq PRN Reason Stop Dose Admin Acetaminophen 650 mg 05/14/18 17:04 05/17/18 17:40 Tylenol - NR 650 mg Q4H PRN Administration PAIN 1-3 Acetylcysteine 200 mg 05/21/18 12:00 05/22/18 11:33 Mucomyst 20 Oral / Inh Use Only* NEB 200 mg RQID [facility] Administration Albuterol Sulfate 1 amp 05/21/18 12:00 05/22/18 11:33 Ventolin 0.5% - NEB 1 amp RQID [facility] Administration Bisacodyl 10 mg 05/15/18 10:00 05/22/18 11:21 Dulcolax Suppository - RC Not Given DAILY [facility] Budesonide/Formoterol Fumarate 2 puff 05/15/18 22:00 05/22/18 11:25 Symbicort 80/4.5mcg - IH Not Given BID [facility] Diazepam 5 mg 05/14/18 22:00 05/22/18 15:01 Valium - GT Not Given TID [facility] Docusate Sodium 300 mg 05/15/18 10:00 05/22/18 11:21 Colace Liquid - GT Not Given DAILY [facility] Heparin Sodium (Porcine) 5,000 unit 05/15/18 22:00 05/22/18 15:02 Heparin - SQ 5,000 unit TID [facility] Administration Vancomycin HCl 1,250 mg/ 250 mls @ 250 mls/2 hr 05/15/18 10:45 05/22/18 11:26 Dextrose IVPB 250 mls/2 hr Q24H [facility] Administration Protocol Meropenem 1 gm/ Dextrose 100 mls @ 200 mls/hr 05/15/18 11:00 05/22/18 11:21 IVPB 200 mls/hr Q8H-IV [facility] Administration Amino Acids 1,000 mls @ 75 mls/hr 05/22/18 15:54 Clinimix - IV Q13H [facility] Metoclopramide HCl 10 mg 05/14/18 22:00 05/22/18 11:22 Reglan Oral Solution - GT 10 mg BID [facility] Administration Metoprolol Tartrate 5 mg 05/15/18 12:06 05/17/18 18:00 Lopressor Injection - IVPUSH 5 mg Q4H PRN Administration HYPERTENSION Morphine Sulfate 1 mg 05/17/18 14:22 Morphine Sulfate IVPUSH Q4H PRN PAIN LEVEL 7 - 10 Oxycodone HCl 5 mg 05/17/18 14:26 05/18/18 17:22 Roxicodone - GT 5 mg Q4H PRN Administration PAIN LEVEL 4 - 6 Polyethylene Glycol 17 gm 05/15/18 10:00 05/22/18 11:21 Miralax (For Daily Use) - GT Not Given DAILY [facility] Ranitidine HCl 150 mg 05/22/18 10:53 Zantac Oral Solution - GT BID [facility] Senna 2 tab 05/14/18 22:00 05/21/18 21:42 Senna - PO Not Given HS [facility] ASSESSMENT/PLAN: Repeat Chest CT was done 05/20/18 which shows decreasing size of fluid collection since 05/14/18. Development of large right pleural effusion with lower lobe consolidation. Dev of moderate left pleural effusion with lower lobe consolidation with almost complete atelectasis of the left lung. ASSESSMENT/PLAN: Patient is a 61-year old male, with history of bronchiectasis, neurogenic bladder with a suprapubic tube, asthma,COPD, GERD, HTN, carpal tunnel, hemoptysis, dysphagsia requiring a peg tub for feed. dystonia for 32 yrs, bronchiectasis was sent from [facility] for evaluation of abnormal CXR. # Shortness of breath likely from aspiration pneumonia and lung abscess. Continue Merepenam and Vancomycin Day 7 Continue Chest PT, Ipratropium nebs, Symbicort. Mucomyst # Lung mass necrotizing mass vs abscess vs malignancy with collapsed left lung Repeat Chest CT was done 05/20/18 report as above Discussed with IR who mentioned that it cannot be drained as it has spread in the tracheobronchial tree Discussed with pulmonary regarding bronchoscopy for collapsed lung, patient is too unstable for the procedure Called patients brother yesterday regarding patient's medical condition and poor prognosis, he verbalized understanding. Palliative on board. # UTI (E.faecalis) Continue above abx # Sinus tachycardia Likely from sepsis vs anxiety. Cardiac unlikely, ekg normal, echo normal. No events on tele. Metoprolol 5mg Q4H PRN # Dysphagia PEG tube in place. Hold feeds for now for possible procedure. # Normocytic anemia H/H Stable since last admission. Will monitor # Constipation Continue Bowel regimen. # FEN IV Clinimix increased to @ 75 ml/hr Electrolytes to be repeated in AM. Repleted phos NPO for now, no feeding from the PEG tube, aspiration precautions. # Prophylaxis For DVT: SCDs For GI: On Ranitidine # Code Status: DNR/DNR (patient confirmed today 05/22/18) Prognosis guarded. # Dispo: Duration of stay unknown. Admitted in Tele. Plan of care explained to the patient. He verbalized understanding. Case discussed with Dr. Prince. Problem List - Problems (1) Lung abscess Code(s): J85.2 - ABSCESS OF LUNG WITHOUT PNEUMONIA Qualifiers: Pulmonary abscess pneumonia presence: without pneumonia Laterality: left Lung location: upper lobe of lung Qualified Code(s): J85.2 - Abscess of lung without pneumonia (2) Sepsis Code(s): A41.9 - SEPSIS, UNSPECIFIED ORGANISM (3) Aspiration of formula Code(s): P24.30 - ASPIRAT OF MILK AND REGURGITATED FOOD W/O RESP SYMP (4) Asthma Code(s): J45.909 - UNSPECIFIED ASTHMA, UNCOMPLICATED (5) COPD (chronic obstructive pulmonary disease) Code(s): J44.9 - CHRONIC OBSTRUCTIVE PULMONARY DISEASE, UNSPECIFIED Qualifiers: COPD type: COPD with acute exacerbation Qualified Code(s): J44.1 - Chronic obstructive pulmonary disease with (acute) exacerbation (6) Cavitary lesion of lung Code(s): J98.4 - OTHER DISORDERS OF LUNG Visit type - Emergency Visit Emergency Visit: Yes ED Registration Date: 05/15/18 Care time: The patient presented to the Emergency Department on the above date and was hospitalized for further evaluation of their emergent condition. - New Patient This patient is new to me today: No - Critical Care Critical Care patient: No - Discharge Referral Referred to [facility] Med [facility] No
[2018-05-22] MEDS: AMINO ACIDS 4.25%/D5W 1,000 ML IV SCH (18:25)
[2018-05-22] MEDS: SENNOSIDES 8.6MG TABLET (FP) PO SCH (21:58)
[2018-05-22] MEDS: RANITIDINE HCL 150 MG/10 ML UNIT-DOSE GT SCH (21:59)
[2018-05-22] MEDS ORDERED: ALBUTEROL SO4 0.083% IH SOL 2.5 MG/3 ML VIAL.NEB. NEB ONE (23:48)
--- NOTE | 2018-05-22 23:59 | RAPID ---
Physical Examination Vital Signs: Vital Signs Temperature 97.8 F 05/22/18 21:09 Pulse Rate 100 H 05/22/18 21:09 Respiratory Rate 22 H 05/22/18 21:09 Blood Pressure 96/60 05/22/18 21:09 O2 Sat by Pulse Oximetry (%) 100 05/22/18 21:00 Labs: CBC, BMP 05/22/18 05:30 05/22/18 06:00 Rapid Response - Rapid Response Assessment: paged by nurse for pt desaturating to 60s% on partial NRB nursing staff was performing deep suctioning when we informed pt BP 55/24. Rapid response was called BP 63/40 HR 139, 58%sat pt was repositioned on R side of chest rpt vitals 88/55, HR 128, 69%, temp 98.7 axillary PE laying in bed tachypnic upper airway wheezing b/l no crackles TACHY, RR S1 S2 EXT warm to touch will order albuterol tx and CXR will notify family member will cont to monitor
[2018-05-23] MEDS ORDERED: PT OWN MED DRAWER 7, Y5N ONE ×4 (03:53→22:04)
[2018-05-23] MEDS: MEROPENEM 1 GM in DEXTROSE 5%-WATER 100 ML IVPB SCH ×3 (04:04→18:16)
[2018-05-23] MEDS: HEPARIN NA (PORCINE) 5,000 UNITS/ML 1ML VIAL SQ SCH ×3 (07:01→21:59)
[2018-05-23] MEDS: diazePAM 5 MG TABLET GT SCH ×3 (07:02→22:00)
[2018-05-23 07:20] LABS: HEMATOCRIT 27.6 % (35.4-49); HEMOGLOBIN 8.6 GM/dL (11.7-16.9); MCH 29.9 pg (25.7-33.7); MCHC 31.3 g/dl (32.0-35.9); MEAN CELL VOLUME 95.6 fl (80-96); MEAN PLT VOLUME 7.5 fl (7.5-11.1); PLATELET COUNT 327 K/MM3 (134-434); RBC 2.89 M/mm3 (4.00-5.60); RDW 14.6 % (11.9-15.9); WHITE BLOOD COUNT 18.1 K/mm3 (4.0-10.0)
[2018-05-23 07:36] LABS: ALBUMIN 1.3 g/dl (3.4-5.0); ALK PHOS 170 U/L (45-117); ANION GAP 2 MMOL/L (8-16); BILIRUBIN,TOTAL 0.4 mg/dL (0.2-1); BLOOD UREA NITROGEN 13 mg/dL (7-18); CALCIUM 7.3 mg/dL (8.5-10.1); CHLORIDE 92 mmol/L (98-107); CO2 44 mmol/L (21-32); CREATININE 0.3 mg/dL (0.55-1.3); GLUCOSE,RANDOM 105 mg/dL (74-106); MAGNESIUM 2.2 mg/dL (1.8-2.4); PHOSPHOROUS 1.8 mg/dL (2.5-4.9); POTASSIUM 3.5 mmol/L (3.5-5.1); SGOT/AST 56 U/L (15-37); SGPT/ALT 33 U/L (13-61); SODIUM 138 mmol/L (136-145)
[2018-05-23] MEDS: ALBUTEROL SO4 0.5 % INH SOLN 2.5 MG/0.5 ML VIAL.NEB. NEB SCH ×4 (07:58→20:42)
[2018-05-23] MEDS: ACETYLCYSTEINE 20% 200MG/ML 4 ML VIAL *FOR ORAL / INH USE ONLY NEB SCH ×4 (07:58→20:43)
[2018-05-23] MEDS ORDERED: POTASSIUM PHOSPHATE 30 MM in SODIUM CHLORIDE 500 ML IVPB ONE (09:53)
--- NOTE | 2018-05-23 10:05 | PN ---
Teaching Attending Note Name of Resident: Yarely Falcon ATTENDING PHYSICIAN STATEMENT I saw and evaluated the patient. I reviewed the resident's note and discussed the case with the resident. I agree with the resident's findings and plan as documented with exceptions below. SUBJECTIVE: Patient seen and examined. lethargic, minimal responses by nodding, denies pain or dyspnea. On NRB. OBJECTIVE: Vital Signs Period Temp Pulse Resp BP Sys/Marroquin Pulse Ox Last 24 Hr 97.8 F-98.1 F 90-101 18-22 84-96/54-60 100 Intake & Output 05/20/18 05/21/18 05/22/18 05/23/18 23:59 23:59 23:59 23:59 Intake Total 3195 1630 1004 850 Output Total 2600 2450 2200 400 Balance 595 -820 -1196 450 General: lethargic on NRB in bed Chest: bilateral rales R>L, poor effort Abdomen:Soft, NT, ND Extremities: no edema Home Medications Medication Instructions Recorded Acetaminophen [Tylenol] 325 mg GT QID 09/11/17 Albuterol 0.083% Nebulizer Jojo 1 neb NEB Q6H 09/11/17 [Ventolin 0.083% Nebulizer Soln -] Bisacodyl [Biscolax] 10 mg RC DAILY 09/11/17 Diazepam [Valium] 5 mg GT TID 09/11/17 Docusate Liquid [Colace Liquid -] 300 mg GT TID 09/11/17 Lps 16-100 Liquid 30 ml GT BID 09/11/17 Methenamine/Sodium Salicylate 1 each GT DAILY 09/11/17 [Cystex Plus Tablet] Metoclopramide Oral Soln [Reglan 10 mg GT BID 09/11/17 Oral Solution -] Polyethylene Glycol 3350 [Clearlax] 17 gm GT DAILY 09/11/17 Ranitidine [Zantac -] 150 mg GT BID 09/11/17 Sennosides [Senna] 17.2 mg GT HS 09/11/17 Tramadol HCl 50 mg GT TID 09/11/17 Acetaminophen 650 mg PO QID PRN 05/14/18 Metoclopramide Oral Soln [Reglan 10 ml GT TID 05/14/18 Oral Solution -] Moxifloxacin HCl [Vigamox 0.5% -] 1 drop OD TID 05/14/18 Fred/Polymyx B Sulf/Dexameth 1 drop OD DAILY 05/14/18 [Maxitrol Eye Drops -] Prednisolone 1% Ophthalmic [Pred 1 drop OD TID 05/14/18 Forte 1% -] Active Medications Acetaminophen (Tylenol -) 650 mg NR Q4H PRN PRN Reason: PAIN 1-3 Last Admin: 05/17/18 17:40 Dose: 650 mg Acetylcysteine (Mucomyst 20 Oral / Inh Use Only*) 200 mg NEB RQID [facility] Last Admin: 05/23/18 07:58 Dose: 200 mg Albuterol Sulfate (Ventolin 0.5% -) 1 amp NEB RQID [facility] Last Admin: 05/23/18 07:58 Dose: 1 amp Bisacodyl (Dulcolax Suppository -) 10 mg RC DAILY [facility] Last Admin: 05/22/18 11:21 Dose: Not Given Budesonide/Formoterol Fumarate (Symbicort 80/4.5mcg -) 2 puff IH BID [facility] Last Admin: 05/22/18 21:58 Dose: Not Given Diazepam (Valium -) 5 mg GT TID [facility] Last Admin: 05/23/18 07:02 Dose: 5 mg Docusate Sodium (Colace Liquid -) 300 mg GT DAILY [facility] Last Admin: 05/22/18 11:21 Dose: Not Given Heparin Sodium (Porcine) (Heparin -) 5,000 unit SQ TID [facility] Last Admin: 05/23/18 07:01 Dose: Not Given Vancomycin HCl 1,250 mg/ (Dextrose) 250 mls @ 250 mls/2 hr IVPB Q24H [facility]; Protocol Last Admin: 05/22/18 11:26 Dose: 250 mls/2 hr Meropenem 1 gm/ Dextrose 100 mls @ 200 mls/hr IVPB Q8H-IV [facility] Last Admin: 05/23/18 04:04 Dose: 200 mls/hr Amino Acids (Clinimix -) 1,000 mls @ 75 mls/hr IV Q13H [facility] Last Admin: 05/22/18 18:25 Dose: 75 mls/hr Potassium Phosphate 30 mm/ (Sodium Chloride) 260 mls @ 62.5 mls/hr IVPB ONCE ONE Stop: 05/23/18 14:02 Metoclopramide HCl (Reglan Oral Solution -) 10 mg GT BID [facility] Last Admin: 05/22/18 21:58 Dose: Not Given Metoprolol Tartrate (Lopressor Injection -) 5 mg IVPUSH Q4H PRN PRN Reason: HYPERTENSION Last Admin: 05/17/18 18:00 Dose: 5 mg Morphine Sulfate (Morphine Sulfate) 1 mg IVPUSH Q4H PRN PRN Reason: PAIN LEVEL 7 - 10 Oxycodone HCl (Roxicodone -) 5 mg GT Q4H PRN PRN Reason: PAIN LEVEL 4 - 6 Last Admin: 05/18/18 17:22 Dose: 5 mg Polyethylene Glycol (Miralax (For Daily Use) -) 17 gm GT DAILY [facility] Last Admin: 05/22/18 11:21 Dose: Not Given Ranitidine HCl (Zantac Oral Solution -) 150 mg GT BID [facility] Last Admin: 05/22/18 21:59 Dose: Not Given Senna (Senna -) 2 tab PO HS [facility] Last Admin: 05/22/18 21:58 Dose: Not Given Laboratory Results - last 24 hr 05/22/18 05/23/18 05/23/18 18:28 05:20 05:20 WBC 18.1 H RBC 2.89 L Hgb 8.6 L Hct 27.6 L MCV 95.6 MCH 29.9 MCHC 31.3 L RDW 14.6 Plt Count 327 MPV 7.5 Sodium 138 Potassium 3.5 Chloride 92 L Carbon Dioxide 44 H Anion Gap 2 L BUN 13 Creatinine 0.3 L Creat Clearance w eGFR > 60 POC Glucometer 109 Random Glucose 105 Calcium 7.3 L Phosphorus 1.8 L Magnesium 2.2 Total Bilirubin 0.4 AST 56 H ALT 33 Alkaline Phosphatase 170 H Total Protein 5.0 L Albumin 1.3 L Microbiology 05/15/18 12:54 Blood - Peripheral Venous Blood Culture - Final NO GROWTH AFTER 5 DAYS INCUBATION 05/15/18 12:05 Blood - Peripheral Venous Blood Culture - Final NO GROWTH AFTER 5 DAYS INCUBATION 05/15/18 22:20 Urine - Urine Suprapubic Urine Culture - Final Enterococcus Faecalis 05/15/18 22:20 Urine For Antigen Detection Legionella Antigen - Final 05/15/18 22:20 Urine For Antigen Detection Streptococcus pneumoniae Antigen (M - Final ASSESSMENT AND PLAN: 62 yom with pMHx of muscular dystonia, peg, sent from [place] with abnormal CXR/PNA -Acute hypoxemic respiratory failure -Lung abscess, suspect from recurrent aspiration -Left lung collapse, suspect related to mucous plugging -Aspiration -Muscular dystonia -Hypokalemia -Hypophosphatemia -Hypotension Plan: Overnight events noted. Hypoxic/Hypotensive overnight, s/p suctioning of thick mucous plugs. WBC rising Per discussion with Dr. Joe, not candidate for IR guided drainage, given already draining in tracheobronchial tree. Per discussion with dr. Garcia, not a candidate for bronchoscopy given high risk given tenuous respiratory failure. Vancomycin d/manolo. meropenem per ID. DNR/DNI, discussion held with patient at bedside yesterday, confirmed would not want intubation or go on a ventilator and agreable comfort measures in event of clinical deterioration. Witnessed by OLGA Webb and Dr. Strauss. Not a candidate for bipap given high aspiration risk and lack of effort/co- operation on NRB currently. Progressive clinical deterioration with poor prognosis currently. Meeting with palliative care, patient and brother to address overall goals of care including comfort measures as prognosis poor, progressive clinical deterioration. Plan discussed with nursing in detail, all questions answered.
--- NOTE | 2018-05-23 10:35 | PN ---
Progress Note (short form) - Note Progress Note: s: sob a little less, no cp palps dizzy o: Vital Signs Period Temp Pulse Resp BP Sys/Marroquin Pulse Ox Last 24 Hr 97.8 F-98.1 F 90-101 18-22 84-96/54-60 100 nad no jvd scattered rhonci, nl eff rrr s1s2 no mrg no le e/c/c no jaundice diaphoresis aaox3 abd nt nd pos bs Current Medications Generic Name Dose Route Start Last Admin Trade Name Freq PRN Reason Stop Dose Admin Acetaminophen 650 mg 05/14/18 17:04 05/17/18 17:40 Tylenol - NR 650 mg Q4H PRN Administration PAIN 1-3 Acetylcysteine 200 mg 05/21/18 12:00 05/23/18 07:58 Mucomyst 20 Oral / Inh Use Only* NEB 200 mg RQID [facility] Administration Albuterol Sulfate 1 amp 05/21/18 12:00 05/23/18 07:58 Ventolin 0.5% - NEB 1 amp RQID [facility] Administration Bisacodyl 10 mg 05/15/18 10:00 05/22/18 11:21 Dulcolax Suppository - RC Not Given DAILY [facility] Budesonide/Formoterol Fumarate 2 puff 05/15/18 22:00 05/22/18 21:58 Symbicort 80/4.5mcg - IH Not Given BID [facility] Diazepam 5 mg 05/14/18 22:00 05/23/18 07:02 Valium - GT 5 mg TID [facility] Administration Docusate Sodium 300 mg 05/15/18 10:00 05/22/18 11:21 Colace Liquid - GT Not Given DAILY [facility] Heparin Sodium (Porcine) 5,000 unit 05/15/18 22:00 05/23/18 07:01 Heparin - SQ Not Given TID [facility] Vancomycin HCl 1,250 mg/ 250 mls @ 250 mls/2 hr 05/15/18 10:45 05/22/18 11:26 Dextrose IVPB 250 mls/2 hr Q24H [facility] Administration Protocol Meropenem 1 gm/ Dextrose 100 mls @ 200 mls/hr 05/15/18 11:00 05/23/18 04:04 IVPB 200 mls/hr Q8H-IV [facility] Administration Amino Acids 1,000 mls @ 75 mls/hr 05/22/18 15:54 05/22/18 18:25 Clinimix - IV 75 mls/hr Q13H [facility] Administration Potassium Phosphate 30 mm/ 260 mls @ 62.5 mls/hr 05/23/18 09:53 Sodium Chloride IVPB 05/23/18 14:02 ONCE ONE Metoclopramide HCl 10 mg 05/14/18 22:00 05/22/18 21:58 Reglan Oral Solution - GT Not Given BID [facility] Metoprolol Tartrate 5 mg 05/15/18 12:06 05/17/18 18:00 Lopressor Injection - IVPUSH 5 mg Q4H PRN Administration HYPERTENSION Morphine Sulfate 1 mg 05/17/18 14:22 Morphine Sulfate IVPUSH Q4H PRN PAIN LEVEL 7 - 10 Oxycodone HCl 5 mg 05/17/18 14:26 05/18/18 17:22 Roxicodone - GT 5 mg Q4H PRN Administration PAIN LEVEL 4 - 6 Polyethylene Glycol 17 gm 05/15/18 10:00 05/22/18 11:21 Miralax (For Daily Use) - GT Not Given DAILY [facility] Ranitidine HCl 150 mg 05/22/18 10:53 05/22/18 21:59 Zantac Oral Solution - GT Not Given BID [facility] Senna 2 tab 05/14/18 22:00 05/22/18 21:58 Senna - PO Not Given HS [facility] CBC, BMP 05/23/18 05:20 05/23/18 05:20 ecg: sinus tach, nl intervals, irbbb echo 04/2018: tds; nl lv/rv, mod tr, nl rvsp ct chest: rul mass/fluid collection a/p: 62 m hx muscular dystonia, peg, [place] resident, sent from [place] for abnl cxr/ pna. pna, lung abscess: -abx per ID sinus tachy: -echo and ecg unremarkable -tele showed sinus tach, no arrhythmias -sinus tach 2/2 pna/resp distress. Continue to treat underlying issues, no specific tx needed for HR at this time.
[2018-05-23] MEDS: DOCUSATE NA 100 MG/10 ML UNIT-DOSE CUPS GT SCH (11:07)
[2018-05-23] MEDS: BISACODYL 10 MG SUPP.RECT RC SCH (11:07)
[2018-05-23] MEDS: METOCLOPRAMIDE HCL 5 MG/5 ML UNIT DOSE CUP GT SCH ×3 (11:12→22:14)
[2018-05-23] MEDS: RANITIDINE HCL 150 MG/10 ML UNIT-DOSE GT SCH ×3 (11:12→22:14)
[2018-05-23] MEDS: BUDESONIDE/FORMETEROL FUMARATE 80/4.5 mcg INHALER IH SCH ×2 (11:12→21:59)
[2018-05-23] MEDS: POLYETHYLENE GLYCOL 3350 119 GM BTL GT SCH (11:12)
[2018-05-23] MEDS: VANCOMYCIN 1,250 MG in DEXTROSE 5%-WATER - 250 ML IVPB SCH (11:12)
--- NOTE | 2018-05-23 11:24 | PN ---
Progress Note, Physician History of Present Illness: PULMONARY LETHARGIC ON 100% NRB - Current Medication List Current Medications: Active Medications Acetaminophen (Tylenol -) 650 mg NR Q4H PRN PRN Reason: PAIN 1-3 Last Admin: 05/17/18 17:40 Dose: 650 mg Acetylcysteine (Mucomyst 20 Oral / Inh Use Only*) 200 mg NEB RQID [facility] Last Admin: 05/23/18 07:58 Dose: 200 mg Albuterol Sulfate (Ventolin 0.5% -) 1 amp NEB RQID [facility] Last Admin: 05/23/18 07:58 Dose: 1 amp Bisacodyl (Dulcolax Suppository -) 10 mg RC DAILY [facility] Last Admin: 05/23/18 11:07 Dose: Not Given Budesonide/Formoterol Fumarate (Symbicort 80/4.5mcg -) 2 puff IH BID [facility] Last Admin: 05/23/18 11:12 Dose: Not Given Diazepam (Valium -) 5 mg GT TID [facility] Last Admin: 05/23/18 07:02 Dose: 5 mg Docusate Sodium (Colace Liquid -) 300 mg GT DAILY [facility] Last Admin: 05/23/18 11:07 Dose: Not Given Heparin Sodium (Porcine) (Heparin -) 5,000 unit SQ TID [facility] Last Admin: 05/23/18 07:01 Dose: Not Given Vancomycin HCl 1,250 mg/ (Dextrose) 250 mls @ 250 mls/2 hr IVPB Q24H [facility]; Protocol Last Admin: 05/23/18 11:12 Dose: 250 mls/2 hr Meropenem 1 gm/ Dextrose 100 mls @ 200 mls/hr IVPB Q8H-IV [facility] Last Admin: 05/23/18 11:07 Dose: 200 mls/hr Amino Acids (Clinimix -) 1,000 mls @ 75 mls/hr IV Q13H [facility] Last Admin: 05/22/18 18:25 Dose: 75 mls/hr Potassium Phosphate 30 mm/ (Sodium Chloride) 510 mls @ 62.5 mls/hr IVPB ONCE ONE Stop: 05/23/18 18:02 Metoclopramide HCl (Reglan Oral Solution -) 10 mg GT BID [facility] Last Admin: 05/23/18 11:12 Dose: 10 mg Metoprolol Tartrate (Lopressor Injection -) 5 mg IVPUSH Q4H PRN PRN Reason: HYPERTENSION Last Admin: 05/17/18 18:00 Dose: 5 mg Morphine Sulfate (Morphine Sulfate) 1 mg IVPUSH Q4H PRN PRN Reason: PAIN LEVEL 7 - 10 Oxycodone HCl (Roxicodone -) 5 mg GT Q4H PRN PRN Reason: PAIN LEVEL 4 - 6 Last Admin: 05/18/18 17:22 Dose: 5 mg Polyethylene Glycol (Miralax (For Daily Use) -) 17 gm GT DAILY [facility] Last Admin: 05/23/18 11:12 Dose: Not Given Ranitidine HCl (Zantac Oral Solution -) 150 mg GT BID [facility] Last Admin: 05/23/18 11:12 Dose: 150 mg Senna (Senna -) 2 tab PO HS [facility] Last Admin: 05/22/18 21:58 Dose: Not Given - Objective Vital Signs: Vital Signs Temperature 98.1 F 05/23/18 05:45 Pulse Rate 98 H 05/23/18 05:45 Respiratory Rate 18 05/23/18 05:45 Blood Pressure 91/60 05/23/18 05:45 O2 Sat by Pulse Oximetry (%) 100 05/22/18 21:00 Constitutional: Yes: Cachectic, Thin Eyes: Yes: WNL HENT: Yes: WNL Neck: Yes: WNL Cardiovascular: Yes: Regular Rate and Rhythm, S1, S2 Respiratory: Yes: Diminished Gastrointestinal: Yes: Soft, Other (GT) Extremities: Yes: WNL Edema: No Labs: CBC, BMP 05/23/18 05:20 05/23/18 05:20 INR, PTT INR 1.23 (0.83-1.09) H 05/20/18 06:00 Problem List - Problems (1) Atelectasis Code(s): J98.11 - ATELECTASIS (2) Acute hypoxemic respiratory failure Code(s): J96.01 - ACUTE RESPIRATORY FAILURE WITH HYPOXIA Assessment/Plan (1) Lung abscess Code(s): J85.2 - ABSCESS OF LUNG WITHOUT PNEUMONIA Qualifiers: Pulmonary abscess pneumonia presence: without pneumonia Laterality: left Lung location: upper lobe of lung Qualified Code(s): J85.2 - Abscess of lung without pneumonia (2) Aspiration of formula Code(s): P24.30 - ASPIRAT OF MILK AND REGURGITATED FOOD W/O RESP SYMP (3) COPD (chronic obstructive pulmonary disease) Code(s): J44.9 - CHRONIC OBSTRUCTIVE PULMONARY DISEASE, UNSPECIFIED Qualifiers: COPD type: COPD with acute exacerbation Qualified Code(s): J44.1 - Chronic obstructive pulmonary disease with (acute) exacerbation (4) Cavitary lesion of lung Code(s): J98.4 - OTHER DISORDERS OF LUNG (5) Dysphagia Code(s): R13.10 - DYSPHAGIA, UNSPECIFIED (6) Dystonia Code(s): G24.9 - DYSTONIA, UNSPECIFIED (7) Empyema lung Code(s): J86.9 - PYOTHORAX WITHOUT FISTULA (8) GERD (gastroesophageal reflux disease) Code(s): K21.9 - GASTRO-ESOPHAGEAL REFLUX DISEASE WITHOUT ESOPHAGITIS (9) HTN (hypertension) Code(s): I10 - ESSENTIAL (PRIMARY) HYPERTENSION Qualifiers: (10) Hypoxemia Code(s): R09.02 - HYPOXEMIA (11) Lung mass Code(s): R91.8 - OTHER NONSPECIFIC ABNORMAL FINDING OF LUNG FIELD (12) Neurogenic bladder Code(s): N31.9 - NEUROMUSCULAR DYSFUNCTION OF BLADDER, UNSPECIFIED (13) Pneumonia Code(s): J18.9 - PNEUMONIA, UNSPECIFIED ORGANISM Qualifiers: (14) Protein-calorie malnutrition, severe Code(s): E43 - UNSPECIFIED SEVERE PROTEIN-CALORIE MALNUTRITION (15) Sinus tachycardia Code(s): R00.0 - TACHYCARDIA, UNSPECIFIED (16) Sepsis Code(s): A41.9 - SEPSIS, UNSPECIFIED ORGANISM 17 Assessment/Plan ACUTE HYPOXEMIC RESPIRATORY FAILURE DYSTONIA LUNG ABSCESS LEFT LUNG ATELECTASIS LIKELY MUCUS PLUG RECURRENT ASPIRATION Aspiration precautions 100% NRBM mucomyst chest pt,suctioning f/u chest x-rays ABX per ID BD TX PRN IVF resuscitation increased pain meds Morphine prn DR MURDOCK
[2018-05-23] MEDS: ACETAMINOPHEN 325 MG TABLET (FP) NR PRN (11:41)
--- NOTE | 2018-05-23 13:17 | PN ---
Progress Note, Physician History of Present Illness: events noted patient had a rapid response now the blood pressure is low patient barely responsive - Current Medication List Current Medications: Active Medications Acetaminophen (Tylenol -) 650 mg NR Q4H PRN PRN Reason: PAIN 1-3 Last Admin: 05/23/18 11:41 Dose: 650 mg Acetylcysteine (Mucomyst 20 Oral / Inh Use Only*) 200 mg NEB RQID [facility] Last Admin: 05/23/18 11:23 Dose: 200 mg Albuterol Sulfate (Ventolin 0.5% -) 1 amp NEB RQID [facility] Last Admin: 05/23/18 11:23 Dose: 1 amp Bisacodyl (Dulcolax Suppository -) 10 mg RC DAILY [facility] Last Admin: 05/23/18 11:07 Dose: Not Given Budesonide/Formoterol Fumarate (Symbicort 80/4.5mcg -) 2 puff IH BID [facility] Last Admin: 05/23/18 11:12 Dose: Not Given Diazepam (Valium -) 5 mg GT TID [facility] Last Admin: 05/23/18 07:02 Dose: 5 mg Docusate Sodium (Colace Liquid -) 300 mg GT DAILY [facility] Last Admin: 05/23/18 11:07 Dose: Not Given Heparin Sodium (Porcine) (Heparin -) 5,000 unit SQ TID [facility] Last Admin: 05/23/18 07:01 Dose: Not Given Vancomycin HCl 1,250 mg/ (Dextrose) 250 mls @ 250 mls/2 hr IVPB Q24H [facility]; Protocol Last Admin: 05/23/18 11:12 Dose: 250 mls/2 hr Meropenem 1 gm/ Dextrose 100 mls @ 200 mls/hr IVPB Q8H-IV [facility] Last Admin: 05/23/18 11:07 Dose: 200 mls/hr Amino Acids (Clinimix -) 1,000 mls @ 75 mls/hr IV Q13H [facility] Last Admin: 05/22/18 18:25 Dose: 75 mls/hr Potassium Phosphate 30 mm/ (Sodium Chloride) 510 mls @ 62.5 mls/hr IVPB ONCE ONE Stop: 05/23/18 18:02 Last Admin: 05/23/18 12:53 Dose: 62.5 mls/hr Metoclopramide HCl (Reglan Oral Solution -) 10 mg GT BID [facility] Last Admin: 05/23/18 11:12 Dose: 10 mg Metoprolol Tartrate (Lopressor Injection -) 5 mg IVPUSH Q4H PRN PRN Reason: HYPERTENSION Last Admin: 05/17/18 18:00 Dose: 5 mg Morphine Sulfate (Morphine Sulfate) 1 mg IVPUSH Q4H PRN PRN Reason: PAIN LEVEL 7 - 10 Oxycodone HCl (Roxicodone -) 5 mg GT Q4H PRN PRN Reason: PAIN LEVEL 4 - 6 Last Admin: 05/18/18 17:22 Dose: 5 mg Polyethylene Glycol (Miralax (For Daily Use) -) 17 gm GT DAILY [facility] Last Admin: 05/23/18 11:12 Dose: Not Given Ranitidine HCl (Zantac Oral Solution -) 150 mg GT BID [facility] Last Admin: 05/23/18 11:12 Dose: 150 mg Senna (Senna -) 2 tab PO HS [facility] Last Admin: 05/22/18 21:58 Dose: Not Given - Objective Vital Signs: Vital Signs Temperature 98.1 F 05/23/18 05:45 Pulse Rate 98 H 05/23/18 05:45 Respiratory Rate 18 05/23/18 05:45 Blood Pressure 91/60 05/23/18 05:45 O2 Sat by Pulse Oximetry (%) 100 05/22/18 21:00 Constitutional: Yes: Thin, Other Cardiovascular: Yes: S1, S2 Respiratory: Yes: Poor Air Entry, Other (on face mask) Gastrointestinal: Yes: Normal Bowel Sounds, Soft Musculoskeletal: Yes: Other Extremities: Yes: Other Neurological: Yes: Lethargy, Other (barely responsive) Labs: CBC, BMP 05/23/18 05:20 05/23/18 05:20 INR, PTT INR 1.23 (0.83-1.09) H 05/20/18 06:00 Assessment/Plan Problem List - Problems (1) Cavitary lesion of lung Code(s): J98.4 - OTHER DISORDERS OF LUNG (2) COPD (chronic obstructive pulmonary disease) Code(s): J44.9 - CHRONIC OBSTRUCTIVE PULMONARY DISEASE, UNSPECIFIED Qualifiers: COPD type: COPD with acute exacerbation Qualified Code(s): J44.1 - Chronic obstructive pulmonary disease with (acute) exacerbation (3) Constipation Code(s): K59.00 - CONSTIPATION, UNSPECIFIED Qualifiers: Constipation type: unspecified constipation type Qualified Code(s): K59.00 - Constipation, unspecified (4) Dysphagia Code(s): R13.10 - DYSPHAGIA, UNSPECIFIED (5) GERD (gastroesophageal reflux disease) Code(s): K21.9 - GASTRO-ESOPHAGEAL REFLUX DISEASE WITHOUT ESOPHAGITIS (6) Protein-calorie malnutrition, severe Code(s): E43 - UNSPECIFIED SEVERE PROTEIN-CALORIE MALNUTRITION plan abx patient condition critical bp low patient wants everything done close watch supportive measures
--- NOTE | 2018-05-23 15:57 | PN ---
Physical Exam: SUBJECTIVE: Patient seen and examined at bed side this morning. Weak and lethargic. Discussed with patient and his brother this morning regarding present medical condition. Brynn and Dr. Prince present. Patient wishes to continue current management and continue to be DNR/DNI. Overnight rapid response was called for hypotension and hypoxia. Suction was done, thick mucus secretions were extracte. cxr ordered. OBJECTIVE: Vital Signs Period Temp Pulse Resp BP Sys/Marroquin Pulse Ox Last 24 Hr 97.8 F-99.6 F 87-101 18-22 83-96/54-60 100-100 GENERAL: Middle aged male, cachectic, lying in bed, in respiratory distress, on non rebreather, patient is awake, lethargic, minimal conversation HEAD: Normal with no signs of trauma. EYES: No Pallor or icterus. ENT: Ears normal, dry mucous membranes. NECK: Supple. LUNGS: Coarse breath sounds +. Using assessory muscles. HEART: Tachycardic, Regular rate and rhythm, S1, S2 without murmur. ABDOMEN: Suprapubic tube in place, PEG, Soft, nontender, no organomegaly. EXTREMITIES: 2+ pulses, warm, well-perfused, no edema. NEUROLOGICAL: No facial droop. Normal speech, gait not observed. PSYCH: Normal mood, normal affect. SKIN: Warm, dry, normal turgor, no rashes or lesions noted Laboratory Results - last 24 hr 05/22/18 05/23/18 05/23/18 18:28 05:20 05:20 WBC 18.1 H RBC 2.89 L Hgb 8.6 L Hct 27.6 L MCV 95.6 MCH 29.9 MCHC 31.3 L RDW 14.6 Plt Count 327 MPV 7.5 Sodium 138 Potassium 3.5 Chloride 92 L Carbon Dioxide 44 H Anion Gap 2 L BUN 13 Creatinine 0.3 L Creat Clearance w eGFR > 60 POC Glucometer 109 Random Glucose 105 Calcium 7.3 L Phosphorus 1.8 L Magnesium 2.2 Total Bilirubin 0.4 AST 56 H ALT 33 Alkaline Phosphatase 170 H Total Protein 5.0 L Albumin 1.3 L 05/23/18 12:08 WBC RBC Hgb Hct MCV MCH MCHC RDW Plt Count MPV Sodium Potassium Chloride Carbon Dioxide Anion Gap BUN Creatinine Creat Clearance w eGFR POC Glucometer 138 Random Glucose Calcium Phosphorus Magnesium Total Bilirubin AST ALT Alkaline Phosphatase Total Protein Albumin Active Medications Generic Name Dose Route Start Last Admin Trade Name Freq PRN Reason Stop Dose Admin Acetaminophen 650 mg 05/14/18 17:04 05/23/18 11:41 Tylenol - NR 650 mg Q4H PRN Administration PAIN 1-3 Acetylcysteine 200 mg 05/21/18 12:00 05/23/18 15:12 Mucomyst 20 Oral / Inh Use Only* NEB 200 mg RQID [facility] Administration Albuterol Sulfate 1 amp 05/21/18 12:00 05/23/18 15:12 Ventolin 0.5% - NEB 1 amp RQID [facility] Administration Bisacodyl 10 mg 05/15/18 10:00 05/23/18 11:07 Dulcolax Suppository - RC Not Given DAILY [facility] Budesonide/Formoterol Fumarate 2 puff 05/15/18 22:00 05/23/18 11:12 Symbicort 80/4.5mcg - IH Not Given BID [facility] Diazepam 5 mg 05/14/18 22:00 05/23/18 15:24 Valium - GT Not Given TID [facility] Docusate Sodium 300 mg 05/15/18 10:00 05/23/18 11:07 Colace Liquid - GT Not Given DAILY [facility] Heparin Sodium (Porcine) 5,000 unit 05/15/18 22:00 05/23/18 15:24 Heparin - SQ 5,000 unit TID [facility] Administration Vancomycin HCl 1,250 mg/ 250 mls @ 250 mls/2 hr 05/15/18 10:45 05/23/18 11:12 Dextrose IVPB 250 mls/2 hr Q24H [facility] Administration Protocol Meropenem 1 gm/ Dextrose 100 mls @ 200 mls/hr 05/15/18 11:00 05/23/18 11:07 IVPB 200 mls/hr Q8H-IV [facility] Administration Amino Acids 1,000 mls @ 75 mls/hr 05/22/18 15:54 05/22/18 18:25 Clinimix - IV 75 mls/hr Q13H [facility] Administration Potassium Phosphate 30 mm/ 510 mls @ 62.5 mls/hr 05/23/18 09:53 05/23/18 12: 53 Sodium Chloride IVPB 05/23/18 18:02 62.5 mls/hr ONCE ONE Administration Metoclopramide HCl 10 mg 05/14/18 22:00 05/23/18 11:12 Reglan Oral Solution - GT 10 mg BID [facility] Administration Metoprolol Tartrate 5 mg 05/15/18 12:06 05/17/18 18:00 Lopressor Injection - IVPUSH 5 mg Q4H PRN Administration HYPERTENSION Morphine Sulfate 1 mg 05/17/18 14:22 Morphine Sulfate IVPUSH Q4H PRN PAIN LEVEL 7 - 10 Oxycodone HCl 5 mg 05/17/18 14:26 05/18/18 17:22 Roxicodone - GT 5 mg Q4H PRN Administration PAIN LEVEL 4 - 6 Polyethylene Glycol 17 gm 05/15/18 10:00 05/23/18 11:12 Miralax (For Daily Use) - GT Not Given DAILY [facility] Ranitidine HCl 150 mg 05/22/18 10:53 05/23/18 11:12 Zantac Oral Solution - GT 150 mg BID [facility] Administration Senna 2 tab 05/14/18 22:00 05/22/18 21:58 Senna - PO Not Given HS [facility] ASSESSMENT/PLAN: Patient is a 61-year old male, with history of bronchiectasis, neurogenic bladder with a suprapubic tube, asthma,COPD, GERD, HTN, carpal tunnel, hemoptysis, dysphagsia requiring a peg tub for feed. dystonia for 32 yrs, bronchiectasis was sent from [facility] for evaluation of abnormal CXR. # Shortness of breath likely from aspiration pneumonia and lung abscess-not improving Continue Merepenam and Vancomycin Day 8 Continue Chest PT, Ipratropium nebs, Symbicort. Mucomyst # Lung mass necrotizing mass vs abscess vs malignancy with collapsed left lung CXR noted today, looks worse than previous. IR guided lung abscess drainage cannot be done due to risk of spreading in the tracheobronchial tree Patient too unstable for bronchoscopy Prognosis guarded. # UTI (E.faecalis) Continue above abx # Sinus tachycardia Likely from sepsis vs anxiety. Cardiac unlikely, ekg normal, echo normal. No events on tele. Metoprolol 5mg Q4H PRN # Dysphagia PEG tube in place. Hold feeds for now for possible procedure. # Normocytic anemia H/H Stable since last admission. Will monitor # Constipation Continue Bowel regimen. # FEN IV Clinimix @ 75 ml/hr Electrolytes to be repeated in AM. Repleted phos NPO for now, no feeding from the PEG tube, aspiration precautions. # Prophylaxis For DVT: SCDs For GI: On Ranitidine # Code Status: DNR/DNI (patient confirmed today 05/22/18) Prognosis guarded. # Dispo: Duration of stay unknown. Admitted in Tele. Plan of care explained to the patient. He verbalized understanding. Case discussed with Dr. Prince. Problem List - Problems (1) Lung abscess Code(s): J85.2 - ABSCESS OF LUNG WITHOUT PNEUMONIA Qualifiers: Pulmonary abscess pneumonia presence: without pneumonia Laterality: left Lung location: upper lobe of lung Qualified Code(s): J85.2 - Abscess of lung without pneumonia (2) Sepsis Code(s): A41.9 - SEPSIS, UNSPECIFIED ORGANISM (3) Aspiration of formula Code(s): P24.30 - ASPIRAT OF MILK AND REGURGITATED FOOD W/O RESP SYMP (4) Asthma Code(s): J45.909 - UNSPECIFIED ASTHMA, UNCOMPLICATED (5) COPD (chronic obstructive pulmonary disease) Code(s): J44.9 - CHRONIC OBSTRUCTIVE PULMONARY DISEASE, UNSPECIFIED Qualifiers: COPD type: COPD with acute exacerbation Qualified Code(s): J44.1 - Chronic obstructive pulmonary disease with (acute) exacerbation (6) Cavitary lesion of lung Code(s): J98.4 - OTHER DISORDERS OF LUNG Visit type - Emergency Visit Emergency Visit: Yes ED Registration Date: 05/15/18 Care time: The patient presented to the Emergency Department on the above date and was hospitalized for further evaluation of their emergent condition. - New Patient This patient is new to me today: No - Critical Care Critical Care patient: No - Discharge Referral Referred to [facility] Med P.C.: No
[2018-05-23] MEDS: AMINO ACIDS 4.25%/D5W 1,000 ML IV SCH (18:16)
[2018-05-23] MEDS: SENNOSIDES 8.6MG TABLET (FP) PO SCH (21:59)
[2018-05-24] MEDS: MEROPENEM 1 GM in DEXTROSE 5%-WATER 100 ML IVPB SCH ×3 (03:05→17:21)
[2018-05-24] MEDS ORDERED: PT OWN MED DRAWER 7, Y5N ONE ×5 (03:31→17:20)
[2018-05-24] MEDS: AMINO ACIDS 4.25%/D5W 1,000 ML IV SCH ×2 (06:29→20:03)
[2018-05-24] MEDS: HEPARIN NA (PORCINE) 5,000 UNITS/ML 1ML VIAL SQ SCH ×3 (06:30→21:15)
[2018-05-24] MEDS: diazePAM 5 MG TABLET GT SCH ×3 (06:37→21:15)
[2018-05-24 07:41] LABS: HEMATOCRIT 27.3 % (35.4-49); HEMOGLOBIN 8.4 GM/dL (11.7-16.9); MCHC 30.9 g/dl (32.0-35.9); MEAN CELL VOLUME 97.2 fl (80-96); MEAN PLT VOLUME 7.6 fl (7.5-11.1); PLATELET COUNT 309 K/MM3 (134-434); RBC 2.81 M/mm3 (4.00-5.60); RDW 14.6 % (11.9-15.9); WHITE BLOOD COUNT 12.7 K/mm3 (4.0-10.0)
[2018-05-24] MEDS: ACETYLCYSTEINE 20% 200MG/ML 4 ML VIAL *FOR ORAL / INH USE ONLY NEB SCH ×4 (07:49→20:44)
[2018-05-24] MEDS: ALBUTEROL SO4 0.5 % INH SOLN 2.5 MG/0.5 ML VIAL.NEB. NEB SCH ×4 (07:50→20:44)
[2018-05-24 08:27] LABS: ALBUMIN 1.3 g/dl (3.4-5.0); ALK PHOS 162 U/L (45-117); ANION GAP 2 MMOL/L (8-16); BILIRUBIN,TOTAL 0.5 mg/dL (0.2-1); BLOOD UREA NITROGEN 15 mg/dL (7-18); CALCIUM 7.7 mg/dL (8.5-10.1); CHLORIDE 93 mmol/L (98-107); CO2 44 mmol/L (21-32); CREATININE 0.2 mg/dL (0.55-1.3); GLUCOSE,RANDOM 109 mg/dL (74-106); MAGNESIUM 2.4 mg/dL (1.8-2.4); PHOSPHOROUS 2.6 mg/dL (2.5-4.9); SGOT/AST 33 U/L (15-37); SGPT/ALT 25 U/L (13-61); SODIUM 139 mmol/L (136-145); TOT PROT 5.1 g/dl (6.4-8.2)
--- NOTE | 2018-05-24 11:25 | PN ---
Progress Note, Physician History of Present Illness: No tele No events - Current Medication List Current Medications: Active Medications Acetaminophen (Tylenol -) 650 mg NR Q4H PRN PRN Reason: PAIN 1-3 Last Admin: 05/23/18 11:41 Dose: 650 mg Acetylcysteine (Mucomyst 20 Oral / Inh Use Only*) 200 mg NEB RQID [facility] Last Admin: 05/24/18 07:49 Dose: 200 mg Albuterol Sulfate (Ventolin 0.5% -) 1 amp NEB RQID [facility] Last Admin: 05/24/18 07:50 Dose: 1 amp Bisacodyl (Dulcolax Suppository -) 10 mg RC DAILY [facility] Last Admin: 05/23/18 11:07 Dose: Not Given Budesonide/Formoterol Fumarate (Symbicort 80/4.5mcg -) 2 puff IH BID [facility] Last Admin: 05/23/18 21:59 Dose: Not Given Diazepam (Valium -) 5 mg GT TID [facility] Last Admin: 05/24/18 06:37 Dose: Not Given Docusate Sodium (Colace Liquid -) 300 mg GT DAILY [facility] Last Admin: 05/23/18 11:07 Dose: Not Given Heparin Sodium (Porcine) (Heparin -) 5,000 unit SQ TID [facility] Last Admin: 05/24/18 06:30 Dose: Not Given Vancomycin HCl 1,250 mg/ (Dextrose) 250 mls @ 250 mls/2 hr IVPB Q24H [facility]; Protocol Last Admin: 05/23/18 11:12 Dose: 250 mls/2 hr Meropenem 1 gm/ Dextrose 100 mls @ 200 mls/hr IVPB Q8H-IV [facility] Last Admin: 05/24/18 03:05 Dose: 200 mls/hr Amino Acids (Clinimix -) 1,000 mls @ 75 mls/hr IV Q13H [facility] Last Admin: 05/24/18 06:29 Dose: 75 mls/hr Metoclopramide HCl (Reglan Oral Solution -) 10 mg GT BID [facility] Last Admin: 05/23/18 22:14 Dose: Not Given Metoprolol Tartrate (Lopressor Injection -) 5 mg IVPUSH Q4H PRN PRN Reason: HYPERTENSION Last Admin: 05/17/18 18:00 Dose: 5 mg Morphine Sulfate (Morphine Sulfate) 1 mg IVPUSH Q4H PRN PRN Reason: PAIN LEVEL 7 - 10 Oxycodone HCl (Roxicodone -) 5 mg GT Q4H PRN PRN Reason: PAIN LEVEL 4 - 6 Last Admin: 05/18/18 17:22 Dose: 5 mg Polyethylene Glycol (Miralax (For Daily Use) -) 17 gm GT DAILY [facility] Last Admin: 05/23/18 11:12 Dose: Not Given Ranitidine HCl (Zantac Oral Solution -) 150 mg GT BID [facility] Last Admin: 05/23/18 22:14 Dose: Not Given Senna (Senna -) 2 tab PO HS [facility] Last Admin: 05/23/18 21:59 Dose: Not Given - Objective Vital Signs: Vital Signs Temperature 97.5 F L 05/24/18 10:00 Pulse Rate 96 H 05/24/18 10:00 Respiratory Rate 20 05/24/18 10:00 Blood Pressure 88/57 L 05/24/18 10:00 O2 Sat by Pulse Oximetry (%) 100 05/24/18 09:00 Constitutional: Yes: Cachectic, Thin Eyes: Yes: WNL HENT: Yes: WNL Neck: Yes: WNL Cardiovascular: Yes: Regular Rate and Rhythm Respiratory: Yes: CTA Bilaterally Gastrointestinal: Yes: Normal Bowel Sounds Extremities: Yes: WNL Labs: CBC, BMP 05/24/18 06:10 05/24/18 06:10 INR, PTT INR 1.23 (0.83-1.09) H 05/20/18 06:00 Assessment/Plan a/p: 62 m hx muscular dystonia, peg, [place] resident, [place] cxr/ pna. pna, lung abscess: -abx per ID sinus tachy: -echo and ecg unremarkable -tele showed sinus tach, no arrhythmias. No longer on Tele monitoring. -sinus tach 2/2 pna/resp distress. -Continue to treat underlying issues, no specific tx needed for HR at this time.
[2018-05-24] MEDS: VANCOMYCIN 1,250 MG in DEXTROSE 5%-WATER - 250 ML IVPB SCH (11:47)
[2018-05-24] MEDS: BISACODYL 10 MG SUPP.RECT RC SCH (11:49)
--- NOTE | 2018-05-24 13:19 | PN ---
Physical Exam: SUBJECTIVE: Patient seen and examined, lethargy, denies pain or worsening breathing. OBJECTIVE: Vital Signs Period Temp Pulse Resp BP Sys/Marroquin Pulse Ox Last 24 Hr 97.4 F-99.6 F 77-96 20-22 83-88/43-58 100-100 GENERAL: lethargy, tachypneic on 100% NRB in bed cachectic male in distress chest: limited co-operation, left sides rales, few right base rales, no wheezing Abdomen:Soft, PEG in place Laboratory Results - last 24 hr 05/23/18 05/24/18 05/24/18 18:18 06:10 06:10 WBC 12.7 H RBC 2.81 L Hgb 8.4 L Hct 27.3 L MCV 97.2 H MCH 30.0 MCHC 30.9 L RDW 14.6 Plt Count 309 MPV 7.6 Sodium 139 Potassium 4.0 Chloride 93 L Carbon Dioxide 44 H Anion Gap 2 L BUN 15 Creatinine 0.2 L Creat Clearance w eGFR > 60 POC Glucometer 103 Random Glucose 109 H Calcium 7.7 L Phosphorus 2.6 Magnesium 2.4 Total Bilirubin 0.5 AST 33 ALT 25 Alkaline Phosphatase 162 H Total Protein 5.1 L Albumin 1.3 L Active Medications Generic Name Dose Route Start Last Admin Trade Name Freq PRN Reason Stop Dose Admin Acetaminophen 650 mg 05/14/18 17:04 05/23/18 11:41 Tylenol - NR 650 mg Q4H PRN Administration PAIN 1-3 Acetylcysteine 200 mg 05/21/18 12:00 05/24/18 11:48 Mucomyst 20 Oral / Inh Use Only* NEB 200 mg RQID [facility] Administration Albuterol Sulfate 1 amp 05/21/18 12:00 05/24/18 11:49 Ventolin 0.5% - NEB 1 amp RQID [facility] Administration Bisacodyl 10 mg 05/15/18 10:00 05/24/18 11:49 Dulcolax Suppository - RC Not Given DAILY [facility] Budesonide/Formoterol Fumarate 2 puff 05/15/18 22:00 05/23/18 21:59 Symbicort 80/4.5mcg - IH Not Given BID [facility] Diazepam 5 mg 05/14/18 22:00 05/24/18 06:37 Valium - GT Not Given TID [facility] Docusate Sodium 300 mg 05/15/18 10:00 05/23/18 11:07 Colace Liquid - GT Not Given DAILY [facility] Heparin Sodium (Porcine) 5,000 unit 05/15/18 22:00 05/24/18 06:30 Heparin - SQ Not Given TID [facility] Vancomycin HCl 1,250 mg/ 250 mls @ 250 mls/2 hr 05/15/18 10:45 05/24/18 11:47 Dextrose IVPB 250 mls/2 hr Q24H [facility] Administration Protocol Meropenem 1 gm/ Dextrose 100 mls @ 200 mls/hr 05/15/18 11:00 05/24/18 11:48 IVPB 200 mls/hr Q8H-IV [facility] Administration Amino Acids 1,000 mls @ 75 mls/hr 05/22/18 15:54 05/24/18 06:29 Clinimix - IV 75 mls/hr Q13H [facility] Administration Metoclopramide HCl 10 mg 05/14/18 22:00 05/23/18 22:14 Reglan Oral Solution - GT Not Given BID [facility] Metoprolol Tartrate 5 mg 05/15/18 12:06 05/17/18 18:00 Lopressor Injection - IVPUSH 5 mg Q4H PRN Administration HYPERTENSION Morphine Sulfate 1 mg 05/17/18 14:22 Morphine Sulfate IVPUSH Q4H PRN PAIN LEVEL 7 - 10 Oxycodone HCl 5 mg 05/17/18 14:26 05/18/18 17:22 Roxicodone - GT 5 mg Q4H PRN Administration PAIN LEVEL 4 - 6 Polyethylene Glycol 17 gm 05/15/18 10:00 05/23/18 11:12 Miralax (For Daily Use) - GT Not Given DAILY [facility] Ranitidine HCl 150 mg 05/22/18 10:53 05/23/18 22:14 Zantac Oral Solution - GT Not Given BID [facility] Senna 2 tab 05/14/18 22:00 05/23/18 21:59 Senna - PO Not Given [facility] Microbiology 05/15/18 12:54 Blood - Peripheral Venous Blood Culture - Final NO GROWTH AFTER 5 DAYS INCUBATION 05/15/18 12:05 Blood - Peripheral Venous Blood Culture - Final NO GROWTH AFTER 5 DAYS INCUBATION 05/15/18 22:20 Urine - Urine Suprapubic Urine Culture - Final Enterococcus Faecalis 05/15/18 22:20 Urine For Antigen Detection Legionella Antigen - Final 05/15/18 22:20 Urine For Antigen Detection Streptococcus pneumoniae Antigen (M - Final ASSESSMENT/PLAN: 62 yom with pMHx of muscular dystonia, peg, sent from [place] with abnormal CXR/PNA -Acute hypoxemic respiratory failure -Lung abscess, suspect from recurrent aspiration -Left lung collapse, suspect related to mucous plugging -Aspiration -Muscular dystonia -Hypokalemia -Hypophosphatemia -Hypotension Plan: Extensive discussion held with patient and brother David. Explained overall poor prognosis and unlikely patient will survive this infection. patient wants to continue with supportive measures and declines CPR/intubation. Continue supportive measures, frequent suctioning/Mucomyst QID. WBC improved. Vancomycin d/manolo. meropenem per ID. Per discussion with Dr. Joe, not candidate for IR guided drainage, given already draining in tracheobronchial tree. Per discussion with dr. Garcia, not a candidate for bronchoscopy given high risk given tenuous respiratory failure. Not a candidate for bipap given high aspiration risk and lack of effort/co- operation on NRB currently. Plan discussed with nursing in detail, all questions answered. Visit type - Emergency Visit Emergency Visit: Yes ED Registration Date: 05/15/18 Care time: The patient presented to the Emergency Department on the above date and was hospitalized for further evaluation of their emergent condition. - New Patient This patient is new to me today: No - Critical Care Critical Care patient: No - Discharge Referral Referred to [facility] Med P.C.: No
--- NOTE | 2018-05-24 13:54 | PN ---
Progress Note (short form) - Note Progress Note: Remains lethargic on 100% NRBM. Intake & Output 05/21/18 05/22/18 05/23/18 05/24/18 23:59 23:59 23:59 23:59 Intake Total 1630 1004 1500 Output Total 2450 2200 1800 400 Balance -820 -1196 -300 -400 Last Vital Signs Temp Pulse Resp BP Pulse Ox 97.5 F L 96 H 20 88/57 L 100 05/24/18 10:00 05/24/18 10:00 05/24/18 10:00 05/24/18 10:00 05/24/18 09:00 Active Medications Acetaminophen (Tylenol -) 650 mg NR Q4H PRN PRN Reason: PAIN 1-3 Last Admin: 05/23/18 11:41 Dose: 650 mg Acetylcysteine (Mucomyst 20 Oral / Inh Use Only*) 200 mg NEB RQID [facility] Last Admin: 05/24/18 11:48 Dose: 200 mg Albuterol Sulfate (Ventolin 0.5% -) 1 amp NEB RQID [facility] Last Admin: 05/24/18 11:49 Dose: 1 amp Bisacodyl (Dulcolax Suppository -) 10 mg RC DAILY [facility] Last Admin: 05/24/18 11:49 Dose: Not Given Budesonide/Formoterol Fumarate (Symbicort 80/4.5mcg -) 2 puff IH BID [facility] Last Admin: 05/23/18 21:59 Dose: Not Given Diazepam (Valium -) 5 mg GT TID [facility] Last Admin: 05/24/18 06:37 Dose: Not Given Docusate Sodium (Colace Liquid -) 300 mg GT DAILY [facility] Last Admin: 05/23/18 11:07 Dose: Not Given Heparin Sodium (Porcine) (Heparin -) 5,000 unit SQ TID [facility] Last Admin: 05/24/18 06:30 Dose: Not Given Vancomycin HCl 1,250 mg/ (Dextrose) 250 mls @ 250 mls/2 hr IVPB Q24H [facility]; Protocol Last Admin: 05/24/18 11:47 Dose: 250 mls/2 hr Meropenem 1 gm/ Dextrose 100 mls @ 200 mls/hr IVPB Q8H-IV [facility] Last Admin: 05/24/18 11:48 Dose: 200 mls/hr Amino Acids (Clinimix -) 1,000 mls @ 75 mls/hr IV Q13H [facility] Last Admin: 05/24/18 06:29 Dose: 75 mls/hr Metoclopramide HCl (Reglan Oral Solution -) 10 mg GT BID [facility] Last Admin: 05/23/18 22:14 Dose: Not Given Metoprolol Tartrate (Lopressor Injection -) 5 mg IVPUSH Q4H PRN PRN Reason: HYPERTENSION Last Admin: 05/17/18 18:00 Dose: 5 mg Morphine Sulfate (Morphine Sulfate) 1 mg IVPUSH Q4H PRN PRN Reason: PAIN LEVEL 7 - 10 Oxycodone HCl (Roxicodone -) 5 mg GT Q4H PRN PRN Reason: PAIN LEVEL 4 - 6 Last Admin: 05/18/18 17:22 Dose: 5 mg Polyethylene Glycol (Miralax (For Daily Use) -) 17 gm GT DAILY [facility] Last Admin: 05/23/18 11:12 Dose: Not Given Ranitidine HCl (Zantac Oral Solution -) 150 mg GT BID [facility] Last Admin: 05/23/18 22:14 Dose: Not Given Senna (Senna -) 2 tab PO HS [facility] Last Admin: 05/23/18 21:59 Dose: Not Given Constitutional: Yes: Cachectic, Thin, tachypneic Eyes: Yes: WNL HENT: Yes: WNL Neck: Yes: WNL Cardiovascular: Yes: Regular Rate and Rhythm, S1, S2 Respiratory: Yes: bilateral coarse rhonchi, no wheeze Gastrointestinal: Yes: Soft, GT, (+) BS Extremities: Yes: WNL Edema: No Labs: Laboratory Results - last 24 hr 05/23/18 05/24/18 05/24/18 18:18 06:10 06:10 WBC 12.7 H RBC 2.81 L Hgb 8.4 L Hct 27.3 L MCV 97.2 H MCH 30.0 MCHC 30.9 L RDW 14.6 Plt Count 309 MPV 7.6 Sodium 139 Potassium 4.0 Chloride 93 L Carbon Dioxide 44 H Anion Gap 2 L BUN 15 Creatinine 0.2 L Creat Clearance w eGFR > 60 POC Glucometer 103 Random Glucose 109 H Calcium 7.7 L Phosphorus 2.6 Magnesium 2.4 Total Bilirubin 0.5 AST 33 ALT 25 Alkaline Phosphatase 162 H Total Protein 5.1 L Albumin 1.3 L Problem List - Problems (1) Atelectasis Code(s): J98.11 - ATELECTASIS (2) Acute hypoxemic respiratory failure Code(s): J96.01 - ACUTE RESPIRATORY FAILURE WITH HYPOXIA Assessment/Plan (1) Lung abscess Code(s): J85.2 - ABSCESS OF LUNG WITHOUT PNEUMONIA Qualifiers: Pulmonary abscess pneumonia presence: without pneumonia Laterality: left Lung location: upper lobe of lung Qualified Code(s): J85.2 - Abscess of lung without pneumonia (2) Aspiration of formula Code(s): P24.30 - ASPIRAT OF MILK AND REGURGITATED FOOD W/O RESP SYMP (3) COPD (chronic obstructive pulmonary disease) Code(s): J44.9 - CHRONIC OBSTRUCTIVE PULMONARY DISEASE, UNSPECIFIED Qualifiers: COPD type: COPD with acute exacerbation Qualified Code(s): J44.1 - Chronic obstructive pulmonary disease with (acute) exacerbation (4) Cavitary lesion of lung Code(s): J98.4 - OTHER DISORDERS OF LUNG (5) Dysphagia Code(s): R13.10 - DYSPHAGIA, UNSPECIFIED (6) Dystonia Code(s): G24.9 - DYSTONIA, UNSPECIFIED (7) Empyema lung Code(s): J86.9 - PYOTHORAX WITHOUT FISTULA (8) GERD (gastroesophageal reflux disease) Code(s): K21.9 - GASTRO-ESOPHAGEAL REFLUX DISEASE WITHOUT ESOPHAGITIS (9) HTN (hypertension) Code(s): I10 - ESSENTIAL (PRIMARY) HYPERTENSION Qualifiers: (10) Hypoxemia Code(s): R09.02 - HYPOXEMIA (11) Lung mass Code(s): R91.8 - OTHER NONSPECIFIC ABNORMAL FINDING OF LUNG FIELD (12) Neurogenic bladder Code(s): N31.9 - NEUROMUSCULAR DYSFUNCTION OF BLADDER, UNSPECIFIED (13) Pneumonia Code(s): J18.9 - PNEUMONIA, UNSPECIFIED ORGANISM Qualifiers: (14) Protein-calorie malnutrition, severe Code(s): E43 - UNSPECIFIED SEVERE PROTEIN-CALORIE MALNUTRITION (15) Sinus tachycardia Code(s): R00.0 - TACHYCARDIA, UNSPECIFIED (16) Sepsis Code(s): A41.9 - SEPSIS, UNSPECIFIED ORGANISM Assessment/Plan ACUTE HYPOXEMIC RESPIRATORY FAILURE DYSTONIA LUNG ABSCESS LEFT LUNG ATELECTASIS LIKELY MUCUS PLUG RECURRENT ASPIRATION Aspiration precautions 100% NRBM mucomyst chest pt,suctioning ABX per ID BD TX PRN IVF Morphine prn DNR / DNI Dr [place] Problem List - Problems (1) Lung abscess Code(s): J85.2 - ABSCESS OF LUNG WITHOUT PNEUMONIA Qualifiers: Pulmonary abscess pneumonia presence: without pneumonia Laterality: left Lung location: upper lobe of lung Qualified Code(s): J85.2 - Abscess of lung without pneumonia (2) Aspiration of formula Code(s): P24.30 - ASPIRAT OF MILK AND REGURGITATED FOOD W/O RESP SYMP (3) COPD (chronic obstructive pulmonary disease) Code(s): J44.9 - CHRONIC OBSTRUCTIVE PULMONARY DISEASE, UNSPECIFIED Qualifiers: COPD type: COPD with acute exacerbation Qualified Code(s): J44.1 - Chronic obstructive pulmonary disease with (acute) exacerbation (4) Cavitary lesion of lung Code(s): J98.4 - OTHER DISORDERS OF LUNG (5) Dysphagia Code(s): R13.10 - DYSPHAGIA, UNSPECIFIED (6) Dystonia Code(s): G24.9 - DYSTONIA, UNSPECIFIED (7) Empyema lung Code(s): J86.9 - PYOTHORAX WITHOUT FISTULA (8) GERD (gastroesophageal reflux disease) Code(s): K21.9 - GASTRO-ESOPHAGEAL REFLUX DISEASE WITHOUT ESOPHAGITIS (9) HTN (hypertension) Code(s): I10 - ESSENTIAL (PRIMARY) HYPERTENSION Qualifiers: (10) Hypoxemia Code(s): R09.02 - HYPOXEMIA (11) Lung mass Code(s): R91.8 - OTHER NONSPECIFIC ABNORMAL FINDING OF LUNG FIELD (12) Neurogenic bladder Code(s): N31.9 - NEUROMUSCULAR DYSFUNCTION OF BLADDER, UNSPECIFIED (13) Pneumonia Code(s): J18.9 - PNEUMONIA, UNSPECIFIED ORGANISM Qualifiers: (14) Protein-calorie malnutrition, severe Code(s): E43 - UNSPECIFIED SEVERE PROTEIN-CALORIE MALNUTRITION (15) Sinus tachycardia Code(s): R00.0 - TACHYCARDIA, UNSPECIFIED (16) Sepsis Code(s): A41.9 - SEPSIS, UNSPECIFIED ORGANISM
--- NOTE | 2018-05-24 14:48 | PN ---
Progress Note, Physician History of Present Illness: Pt seen and examined. Events noted. Currently extremely weak, on NRB. - Current Medication List Current Medications: Active Medications Acetaminophen (Tylenol -) 650 mg NR Q4H PRN PRN Reason: PAIN 1-3 Last Admin: 05/23/18 11:41 Dose: 650 mg Acetylcysteine (Mucomyst 20 Oral / Inh Use Only*) 200 mg NEB RQID [facility] Last Admin: 05/24/18 11:48 Dose: 200 mg Albuterol Sulfate (Ventolin 0.5% -) 1 amp NEB RQID [facility] Last Admin: 05/24/18 11:49 Dose: 1 amp Bisacodyl (Dulcolax Suppository -) 10 mg RC DAILY [facility] Last Admin: 05/24/18 11:49 Dose: Not Given Budesonide/Formoterol Fumarate (Symbicort 80/4.5mcg -) 2 puff IH BID [facility] Last Admin: 05/23/18 21:59 Dose: Not Given Diazepam (Valium -) 5 mg GT TID [facility] Last Admin: 05/24/18 06:37 Dose: Not Given Docusate Sodium (Colace Liquid -) 300 mg GT DAILY [facility] Last Admin: 05/23/18 11:07 Dose: Not Given Heparin Sodium (Porcine) (Heparin -) 5,000 unit SQ TID [facility] Last Admin: 05/24/18 06:30 Dose: Not Given Vancomycin HCl 1,250 mg/ (Dextrose) 250 mls @ 250 mls/2 hr IVPB Q24H [facility]; Protocol Last Admin: 05/24/18 11:47 Dose: 250 mls/2 hr Meropenem 1 gm/ Dextrose 100 mls @ 200 mls/hr IVPB Q8H-IV [facility] Last Admin: 05/24/18 11:48 Dose: 200 mls/hr Amino Acids (Clinimix -) 1,000 mls @ 75 mls/hr IV Q13H [facility] Last Admin: 05/24/18 06:29 Dose: 75 mls/hr Metoclopramide HCl (Reglan Oral Solution -) 10 mg GT BID [facility] Last Admin: 05/23/18 22:14 Dose: Not Given Metoprolol Tartrate (Lopressor Injection -) 5 mg IVPUSH Q4H PRN PRN Reason: HYPERTENSION Last Admin: 05/17/18 18:00 Dose: 5 mg Morphine Sulfate (Morphine Sulfate) 1 mg IVPUSH Q4H PRN PRN Reason: PAIN LEVEL 7 - 10 Oxycodone HCl (Roxicodone -) 5 mg GT Q4H PRN PRN Reason: PAIN LEVEL 4 - 6 Last Admin: 05/18/18 17:22 Dose: 5 mg Polyethylene Glycol (Miralax (For Daily Use) -) 17 gm GT DAILY [facility] Last Admin: 05/23/18 11:12 Dose: Not Given Ranitidine HCl (Zantac Oral Solution -) 150 mg GT BID [facility] Last Admin: 05/23/18 22:14 Dose: Not Given Senna (Senna -) 2 tab PO HS [facility] Last Admin: 05/23/18 21:59 Dose: Not Given - Objective Vital Signs: Vital Signs Temperature 97.5 F L 05/24/18 10:00 Pulse Rate 96 H 05/24/18 10:00 Respiratory Rate 20 05/24/18 10:00 Blood Pressure 88/57 L 05/24/18 10:00 O2 Sat by Pulse Oximetry (%) 100 05/24/18 09:00 Constitutional: Yes: Cachectic Cardiovascular: Yes: Regular Rate and Rhythm Respiratory: Yes: Rales (Poor inspiratory effort) Gastrointestinal: Yes: Normal Bowel Sounds, Soft Edema: No Integumentary: Yes: WNL Neurological: Yes: Lethargy Labs: CBC, BMP 05/24/18 06:10 05/24/18 06:10 INR, PTT INR 1.23 (0.83-1.09) H 05/20/18 06:00 Microbiology 05/15/18 12:54 Blood - Peripheral Venous Blood Culture - Final NO GROWTH AFTER 5 DAYS INCUBATION 05/15/18 12:05 Blood - Peripheral Venous Blood Culture - Final NO GROWTH AFTER 5 DAYS INCUBATION 05/15/18 22:20 Urine - Urine Suprapubic Urine Culture - Final Enterococcus Faecalis 05/15/18 22:20 Urine For Antigen Detection Legionella Antigen - Final 05/15/18 22:20 Urine For Antigen Detection Streptococcus pneumoniae Antigen (M - Final - ....Imaging Chest X-ray: Report Reviewed Problem List - Problems (1) Acute hypoxemic respiratory failure Code(s): J96.01 - ACUTE RESPIRATORY FAILURE WITH HYPOXIA (2) Lung abscess Code(s): J85.2 - ABSCESS OF LUNG WITHOUT PNEUMONIA Qualifiers: Pulmonary abscess pneumonia presence: without pneumonia Laterality: left Lung location: upper lobe of lung Qualified Code(s): J85.2 - Abscess of lung without pneumonia (3) Sepsis Code(s): A41.9 - SEPSIS, UNSPECIFIED ORGANISM (4) COPD (chronic obstructive pulmonary disease) Code(s): J44.9 - CHRONIC OBSTRUCTIVE PULMONARY DISEASE, UNSPECIFIED Qualifiers: COPD type: COPD with acute exacerbation Qualified Code(s): J44.1 - Chronic obstructive pulmonary disease with (acute) exacerbation (5) Cavitary lesion of lung Code(s): J98.4 - OTHER DISORDERS OF LUNG Assessment/Plan Continue current antibiotics Vancomycin trough ordered aspiration precautions continue supportive care prognosis poor
[2018-05-24] MEDS: RANITIDINE HCL 150 MG/10 ML UNIT-DOSE GT SCH ×2 (15:04→21:15)
[2018-05-24] MEDS: METOCLOPRAMIDE HCL 5 MG/5 ML UNIT DOSE CUP GT SCH ×2 (15:04→21:15)
[2018-05-24] MEDS: DOCUSATE NA 100 MG/10 ML UNIT-DOSE CUPS GT SCH (15:05)
[2018-05-24] MEDS: POLYETHYLENE GLYCOL 3350 119 GM BTL GT SCH (15:08)
[2018-05-24] MEDS: BUDESONIDE/FORMETEROL FUMARATE 80/4.5 mcg INHALER IH SCH ×2 (15:08→21:15)
[2018-05-24] MEDS: SENNOSIDES 8.6MG TABLET (FP) PO SCH (21:15)
[2018-05-25] MEDS: MORPHINE SULFATE 2 MG/ML VIAL IVPUSH PRN ×2 (00:29→05:12)
[2018-05-25] MEDS ORDERED: PT OWN MED DRAWER 7, Y5N ONE ×2 (03:27→17:37)
[2018-05-25] MEDS: MEROPENEM 1 GM in DEXTROSE 5%-WATER 100 ML IVPB SCH ×3 (03:30→17:41)
[2018-05-25] MEDS ORDERED: ALBUTEROL SO4 0.083% IH SOL 2.5 MG/3 ML VIAL.NEB. NEB ONE (04:40)
[2018-05-25] MEDS: ACETYLCYSTEINE 20% 200MG/ML 4 ML VIAL *FOR ORAL / INH USE ONLY NEB SCH ×4 (06:45→19:44)
[2018-05-25] MEDS: ALBUTEROL SO4 0.5 % INH SOLN 2.5 MG/0.5 ML VIAL.NEB. NEB SCH ×4 (06:45→19:44)
[2018-05-25] MEDS: HEPARIN NA (PORCINE) 5,000 UNITS/ML 1ML VIAL SQ SCH ×3 (06:53→22:55)
[2018-05-25] MEDS: ACETAMINOPHEN 325 MG TABLET (FP) NR PRN ×2 (06:54→14:42)
[2018-05-25] MEDS: diazePAM 5 MG TABLET GT SCH ×3 (06:58→22:55)
--- NOTE | 2018-05-25 10:13 | PN ---
Progress Note, Physician History of Present Illness: No tele. No CV events - Current Medication List Current Medications: Active Medications Acetaminophen (Tylenol -) 650 mg NR Q4H PRN PRN Reason: PAIN 1-3 Last Admin: 05/25/18 06:54 Dose: 650 mg Acetylcysteine (Mucomyst 20 Oral / Inh Use Only*) 200 mg NEB RQID [facility] Last Admin: 05/25/18 06:45 Dose: 200 mg Albuterol Sulfate (Ventolin 0.5% -) 1 amp NEB RQID [facility] Last Admin: 05/25/18 06:45 Dose: 1 amp Bisacodyl (Dulcolax Suppository -) 10 mg RC DAILY [facility] Last Admin: 05/24/18 11:49 Dose: Not Given Budesonide/Formoterol Fumarate (Symbicort 80/4.5mcg -) 2 puff IH BID [facility] Last Admin: 05/24/18 21:15 Dose: Not Given Diazepam (Valium -) 5 mg GT TID [facility] Last Admin: 05/25/18 06:58 Dose: Not Given Docusate Sodium (Colace Liquid -) 300 mg GT DAILY [facility] Last Admin: 05/24/18 15:05 Dose: 300 mg Heparin Sodium (Porcine) (Heparin -) 5,000 unit SQ TID [facility] Last Admin: 05/25/18 06:53 Dose: Not Given Vancomycin HCl 1,250 mg/ (Dextrose) 250 mls @ 250 mls/2 hr IVPB Q24H [facility]; Protocol Last Admin: 05/24/18 11:47 Dose: 250 mls/2 hr Meropenem 1 gm/ Dextrose 100 mls @ 200 mls/hr IVPB Q8H-IV [facility] Last Admin: 05/25/18 03:30 Dose: 200 mls/hr Amino Acids (Clinimix -) 1,000 mls @ 75 mls/hr IV Q13H [facility] Last Admin: 05/24/18 20:03 Dose: 75 mls/hr Metoclopramide HCl (Reglan Oral Solution -) 10 mg GT BID [facility] Last Admin: 05/24/18 21:15 Dose: Not Given Metoprolol Tartrate (Lopressor Injection -) 5 mg IVPUSH Q4H PRN PRN Reason: HYPERTENSION Last Admin: 05/17/18 18:00 Dose: 5 mg Morphine Sulfate (Morphine Sulfate) 1 mg IVPUSH Q4H PRN PRN Reason: PAIN LEVEL 7 - 10 Last Admin: 05/25/18 05:12 Dose: 1 mg Oxycodone HCl (Roxicodone -) 5 mg GT Q4H PRN PRN Reason: PAIN LEVEL 4 - 6 Last Admin: 05/18/18 17:22 Dose: 5 mg Polyethylene Glycol (Miralax (For Daily Use) -) 17 gm GT DAILY [facility] Last Admin: 05/24/18 15:08 Dose: Not Given Ranitidine HCl (Zantac Oral Solution -) 150 mg GT BID [facility] Last Admin: 05/24/18 21:15 Dose: Not Given Senna (Senna -) 2 tab PO HS [facility] Last Admin: 05/24/18 21:15 Dose: Not Given - Objective Vital Signs: Vital Signs Temperature 101.3 F H 05/25/18 06:50 Pulse Rate 111 H 05/25/18 06:50 Respiratory Rate 20 05/25/18 06:50 Blood Pressure 94/55 L 05/25/18 06:50 O2 Sat by Pulse Oximetry (%) 100 05/24/18 21:00 Constitutional: Yes: Cachectic Eyes: Yes: WNL HENT: Yes: WNL Neck: Yes: WNL Cardiovascular: Yes: Regular Rate and Rhythm Respiratory: Yes: CTA Bilaterally Extremities: Yes: WNL Edema: No Labs: CBC, BMP 05/24/18 06:10 05/24/18 06:10 INR, PTT INR 1.23 (0.83-1.09) H 05/20/18 06:00 Assessment/Plan a/p: 62 m hx muscular dystonia, [place], [place] resident, sent from [facility] for abnl cxr/ pna. pna, lung abscess: -abx per ID sinus tachy: -echo and ecg unremarkable -No longer on Tele monitoring. -sinus tach 2/2 pna/resp distress in chronically ill patient -DNR/DNI. -Continue to treat underlying issues, -no specific cardiac tx needed at this time.
[2018-05-25] MEDS: AMINO ACIDS 4.25%/D5W 1,000 ML IV SCH (10:22)
[2018-05-25] MEDS: BUDESONIDE/FORMETEROL FUMARATE 80/4.5 mcg INHALER IH SCH ×2 (11:41→22:57)
--- NOTE | 2018-05-25 13:16 | PN ---
Progress Note (short form) - Note Progress Note: Events overnight noted. Removing NRBM and refusing suctioning, despite congested cough. No clinical improvement. Intake & Output 05/22/18 05/23/18 05/24/18 05/25/18 23:59 23:59 23:59 23:59 Intake Total 1004 1500 0 945 Output Total 2200 1800 1800 Balance -1196 -300 -1800 945 Last Vital Signs Temp Pulse Resp BP Pulse Ox 99.2 F 103 H 20 99/56 L 100 05/25/18 10:00 05/25/18 10:00 05/25/18 10:00 05/25/18 10:00 05/25/18 09:00 Active Medications Acetaminophen (Tylenol -) 650 mg NR Q4H PRN PRN Reason: PAIN 1-3 Last Admin: 05/25/18 06:54 Dose: 650 mg Acetylcysteine (Mucomyst 20 Oral / Inh Use Only*) 200 mg NEB RQID [facility] Last Admin: 05/25/18 11:56 Dose: 200 mg Albuterol Sulfate (Ventolin 0.5% -) 1 amp NEB RQID [facility] Last Admin: 05/25/18 11:56 Dose: 1 amp Bisacodyl (Dulcolax Suppository -) 10 mg RC DAILY [facility] Last Admin: 05/24/18 11:49 Dose: Not Given Budesonide/Formoterol Fumarate (Symbicort 80/4.5mcg -) 2 puff IH BID [facility] Last Admin: 05/24/18 21:15 Dose: Not Given Diazepam (Valium -) 5 mg GT TID [facility] Last Admin: 05/25/18 06:58 Dose: Not Given Docusate Sodium (Colace Liquid -) 300 mg GT DAILY [facility] Last Admin: 05/24/18 15:05 Dose: 300 mg Heparin Sodium (Porcine) (Heparin -) 5,000 unit SQ TID [facility] Last Admin: 05/25/18 06:53 Dose: Not Given Vancomycin HCl 1,250 mg/ (Dextrose) 250 mls @ 250 mls/2 hr IVPB Q24H [facility]; Protocol Last Admin: 05/24/18 11:47 Dose: 250 mls/2 hr Meropenem 1 gm/ Dextrose 100 mls @ 200 mls/hr IVPB Q8H-IV [facility] Last Admin: 05/25/18 10:21 Dose: 200 mls/hr Amino Acids (Clinimix -) 1,000 mls @ 75 mls/hr IV Q13H [facility] Last Admin: 05/25/18 10:22 Dose: 75 mls/hr Metoclopramide HCl (Reglan Oral Solution -) 10 mg GT BID [facility] Last Admin: 05/24/18 21:15 Dose: Not Given Metoprolol Tartrate (Lopressor Injection -) 5 mg IVPUSH Q4H PRN PRN Reason: HYPERTENSION Last Admin: 05/17/18 18:00 Dose: 5 mg Morphine Sulfate (Morphine Sulfate) 1 mg IVPUSH Q4H PRN PRN Reason: PAIN LEVEL 7 - 10 Last Admin: 05/25/18 05:12 Dose: 1 mg Oxycodone HCl (Roxicodone -) 5 mg GT Q4H PRN PRN Reason: PAIN LEVEL 4 - 6 Last Admin: 05/18/18 17:22 Dose: 5 mg Polyethylene Glycol (Miralax (For Daily Use) -) 17 gm GT DAILY [facility] Last Admin: 05/24/18 15:08 Dose: Not Given Ranitidine HCl (Zantac Oral Solution -) 150 mg GT BID [facility] Last Admin: 05/24/18 21:15 Dose: Not Given Senna (Senna -) 2 tab PO HS [facility] Last Admin: 05/24/18 21:15 Dose: Not Given Constitutional: Yes: Cachectic, Thin, tachypneic Eyes: Yes: WNL HENT: Yes: WNL Neck: Yes: WNL Cardiovascular: Yes: Regular Rate and Rhythm, S1, S2 Respiratory: Yes: bilateral coarse rhonchi, no wheeze Gastrointestinal: Yes: Soft, GT, (+) BS Extremities: Yes: WNL Edema: No Labs: Laboratory Results - last 24 hr 05/25/18 10:25 Vancomycin Pre-Dose 6.8 L Problem List - Problems (1) Atelectasis Code(s): J98.11 - ATELECTASIS (2) Acute hypoxemic respiratory failure Code(s): J96.01 - ACUTE RESPIRATORY FAILURE WITH HYPOXIA Assessment/Plan (1) Lung abscess Code(s): J85.2 - ABSCESS OF LUNG WITHOUT PNEUMONIA Qualifiers: Pulmonary abscess pneumonia presence: without pneumonia Laterality: left Lung location: upper lobe of lung Qualified Code(s): J85.2 - Abscess of lung without pneumonia (2) Aspiration of formula Code(s): P24.30 - ASPIRAT OF MILK AND REGURGITATED FOOD W/O RESP SYMP (3) COPD (chronic obstructive pulmonary disease) Code(s): J44.9 - CHRONIC OBSTRUCTIVE PULMONARY DISEASE, UNSPECIFIED Qualifiers: COPD type: COPD with acute exacerbation Qualified Code(s): J44.1 - Chronic obstructive pulmonary disease with (acute) exacerbation (4) Cavitary lesion of lung Code(s): J98.4 - OTHER DISORDERS OF LUNG (5) Dysphagia Code(s): R13.10 - DYSPHAGIA, UNSPECIFIED (6) Dystonia Code(s): G24.9 - DYSTONIA, UNSPECIFIED (7) Empyema lung Code(s): J86.9 - PYOTHORAX WITHOUT FISTULA (8) GERD (gastroesophageal reflux disease) Code(s): K21.9 - GASTRO-ESOPHAGEAL REFLUX DISEASE WITHOUT ESOPHAGITIS (9) HTN (hypertension) Code(s): I10 - ESSENTIAL (PRIMARY) HYPERTENSION Qualifiers: (10) Hypoxemia Code(s): R09.02 - HYPOXEMIA (11) Lung mass Code(s): R91.8 - OTHER NONSPECIFIC ABNORMAL FINDING OF LUNG FIELD (12) Neurogenic bladder Code(s): N31.9 - NEUROMUSCULAR DYSFUNCTION OF BLADDER, UNSPECIFIED (13) Pneumonia Code(s): J18.9 - PNEUMONIA, UNSPECIFIED ORGANISM Qualifiers: (14) Protein-calorie malnutrition, severe Code(s): E43 - UNSPECIFIED SEVERE PROTEIN-CALORIE MALNUTRITION (15) Sinus tachycardia Code(s): R00.0 - TACHYCARDIA, UNSPECIFIED (16) Sepsis Code(s): A41.9 - SEPSIS, UNSPECIFIED ORGANISM Assessment/Plan ACUTE HYPOXEMIC RESPIRATORY FAILURE DYSTONIA LUNG ABSCESS LEFT LUNG ATELECTASIS LIKELY MUCUS PLUG RECURRENT ASPIRATION Aspiration precautions 100% NRBM mucomyst chest pt,suctioning ABX per ID BD TX PRN IVF Morphine prn DNR / DNI (?) Home Hospice Dr [place] Problem List - Problems (1) Lung abscess Code(s): J85.2 - ABSCESS OF LUNG WITHOUT PNEUMONIA Qualifiers: Pulmonary abscess pneumonia presence: without pneumonia Laterality: left Lung location: upper lobe of lung Qualified Code(s): J85.2 - Abscess of lung without pneumonia (2) Aspiration of formula Code(s): P24.30 - ASPIRAT OF MILK AND REGURGITATED FOOD W/O RESP SYMP (3) COPD (chronic obstructive pulmonary disease) Code(s): J44.9 - CHRONIC OBSTRUCTIVE PULMONARY DISEASE, UNSPECIFIED Qualifiers: COPD type: COPD with acute exacerbation Qualified Code(s): J44.1 - Chronic obstructive pulmonary disease with (acute) exacerbation (4) Cavitary lesion of lung Code(s): J98.4 - OTHER DISORDERS OF LUNG (5) Dysphagia Code(s): R13.10 - DYSPHAGIA, UNSPECIFIED (6) Dystonia Code(s): G24.9 - DYSTONIA, UNSPECIFIED (7) Empyema lung Code(s): J86.9 - PYOTHORAX WITHOUT FISTULA (8) GERD (gastroesophageal reflux disease) Code(s): K21.9 - GASTRO-ESOPHAGEAL REFLUX DISEASE WITHOUT ESOPHAGITIS (9) HTN (hypertension) Code(s): I10 - ESSENTIAL (PRIMARY) HYPERTENSION Qualifiers: (10) Hypoxemia Code(s): R09.02 - HYPOXEMIA (11) Lung mass Code(s): R91.8 - OTHER NONSPECIFIC ABNORMAL FINDING OF LUNG FIELD (12) Neurogenic bladder Code(s): N31.9 - NEUROMUSCULAR DYSFUNCTION OF BLADDER, UNSPECIFIED (13) Pneumonia Code(s): J18.9 - PNEUMONIA, UNSPECIFIED ORGANISM Qualifiers: (14) Protein-calorie malnutrition, severe Code(s): E43 - UNSPECIFIED SEVERE PROTEIN-CALORIE MALNUTRITION (15) Sinus tachycardia Code(s): R00.0 - TACHYCARDIA, UNSPECIFIED (16) Sepsis Code(s): A41.9 - SEPSIS, UNSPECIFIED ORGANISM
--- NOTE | 2018-05-25 14:21 | PN ---
Physical Exam: SUBJECTIVE: Patient seen and examined, denies dsypnea or pain, lethargic, on NRB , limited responses. OBJECTIVE: Vital Signs Period Temp Pulse Resp BP Sys/Marroquin Pulse Ox Last 24 Hr 97.7 F-101.3 F 85-111 18-22 88-99/53-61 100-100 GENERAL: The patient is awake, alert, and fully oriented, in no acute distress. HEAD: Normal with no signs of trauma. EYES: PERRL, extraocular movements intact, sclera anicteric, conjunctiva clear. No ptosis. ENT: Ears normal, nares patent, oropharynx clear without exudates, moist mucous membranes. NECK: Trachea midline, full range of motion, supple. LUNGS: Breath sounds equal, clear to auscultation bilaterally, no wheezes, no crackles, no accessory muscle use. HEART: Regular rate and rhythm, S1, S2 without murmur, rub or gallop. ABDOMEN: Soft, nontender, nondistended, normoactive bowel sounds, no guarding, no rebound, no hepatosplenomegaly, no masses. EXTREMITIES: 2+ pulses, warm, well-perfused, no edema. NEUROLOGICAL: Cranial nerves II through XII grossly intact. Normal speech, gait not observed. PSYCH: Normal mood, normal affect. SKIN: Warm, dry, normal turgor, no rashes or lesions noted Laboratory Results - last 24 hr 05/25/18 10:25 Vancomycin Pre-Dose 6.8 L Active Medications Generic Name Dose Route Start Last Admin Trade Name Freq PRN Reason Stop Dose Admin Acetaminophen 650 mg 05/14/18 17:04 05/25/18 06:54 Tylenol - NR 650 mg Q4H PRN Administration PAIN 1-3 Acetylcysteine 200 mg 05/21/18 12:00 05/25/18 11:56 Mucomyst 20 Oral / Inh Use Only* NEB 200 mg RQID [facility] Administration Albuterol Sulfate 1 amp 05/21/18 12:00 05/25/18 11:56 Ventolin 0.5% - NEB 1 amp RQID [facility] Administration Bisacodyl 10 mg 05/15/18 10:00 05/24/18 11:49 Dulcolax Suppository - RC Not Given DAILY [facility] Budesonide/Formoterol Fumarate 2 puff 05/15/18 22:00 05/24/18 21:15 Symbicort 80/4.5mcg - IH Not Given BID [facility] Diazepam 5 mg 05/14/18 22:00 05/25/18 06:58 Valium - GT Not Given TID [facility] Docusate Sodium 300 mg 05/15/18 10:00 05/24/18 15:05 Colace Liquid - GT 300 mg DAILY [facility] Administration Heparin Sodium (Porcine) 5,000 unit 05/15/18 22:00 05/25/18 06:53 Heparin - SQ Not Given TID [facility] Vancomycin HCl 1,250 mg/ 250 mls @ 250 mls/2 hr 05/15/18 10:45 05/24/18 11:47 Dextrose IVPB 250 mls/2 hr Q24H [facility] Administration Protocol Meropenem 1 gm/ Dextrose 100 mls @ 200 mls/hr 05/15/18 11:00 05/25/18 10:21 IVPB 200 mls/hr Q8H-IV [facility] Administration Amino Acids 1,000 mls @ 75 mls/hr 05/22/18 15:54 05/25/18 10:22 Clinimix - IV 75 mls/hr Q13H [facility] Administration Metoclopramide HCl 10 mg 05/14/18 22:00 05/24/18 21:15 Reglan Oral Solution - GT Not Given BID [facility] Metoprolol Tartrate 5 mg 05/15/18 12:06 05/17/18 18:00 Lopressor Injection - IVPUSH 5 mg Q4H PRN Administration HYPERTENSION Morphine Sulfate 1 mg 05/17/18 14:22 05/25/18 05:12 Morphine Sulfate IVPUSH 1 mg Q4H PRN Administration PAIN LEVEL 7 - 10 Oxycodone HCl 5 mg 05/17/18 14:26 05/18/18 17:22 Roxicodone - GT 5 mg Q4H PRN Administration PAIN LEVEL 4 - 6 Polyethylene Glycol 17 gm 05/15/18 10:00 05/24/18 15:08 Miralax (For Daily Use) - GT Not Given DAILY [facility] Ranitidine HCl 150 mg 05/22/18 10:53 05/24/18 21:15 Zantac Oral Solution - GT Not Given BID [facility] Senna 2 tab 05/14/18 22:00 05/24/18 21:15 Senna - PO Not Given HS [facility] Microbiology 05/15/18 12:54 Blood - Peripheral Venous Blood Culture - Final NO GROWTH AFTER 5 DAYS INCUBATION 05/15/18 12:05 Blood - Peripheral Venous Blood Culture - Final NO GROWTH AFTER 5 DAYS INCUBATION 05/15/18 22:20 Urine - Urine Suprapubic Urine Culture - Final Enterococcus Faecalis 05/15/18 22:20 Urine For Antigen Detection Legionella Antigen - Final 05/15/18 22:20 Urine For Antigen Detection Streptococcus pneumoniae Antigen (M - Final ASSESSMENT/PLAN: 62 yom with pMHx of muscular dystonia, peg, sent from [place] with abnormal CXR/PNA -Acute hypoxemic respiratory failure -Lung abscess, suspect from recurrent aspiration -Left lung collapse, suspect related to mucous plugging -Aspiration -Muscular dystonia -Hypokalemia -Hypophosphatemia -Hypotension Plan: Extensive discussion held with patient and brother David. Explained overall poor prognosis and unlikely patient will survive this infection. patient wants to continue with supportive measures and declines CPR/intubation. Continue supportive measures, frequent suctioning/Mucomyst QID. Vancomycin d/manolo. meropenem per ID. Per discussion with Dr. Joe, not candidate for IR guided drainage, given already draining in tracheobronchial tree. Per discussion with dr. Garcia, not a candidate for bronchoscopy given high risk given tenuous respiratory failure. Not a candidate for bipap given high aspiration risk and lack of effort/co- operation on NRB currently. Clinimix IV. Unable to resume tube feeds given high aspiration risk, tenuous respiratory status. Discussed with nursing to attempt to taper to nasal cannula , will address resumption of tube feeds at a lower rate then. Plan discussed with nursing in detail, all questions answered. Visit type - Emergency Visit Emergency Visit: Yes ED Registration Date: 05/15/18 Care time: The patient presented to the Emergency Department on the above date and was hospitalized for further evaluation of their emergent condition. - New Patient This patient is new to me today: No - Critical Care Critical Care patient: No - Discharge Referral Referred to [facility] No
[2018-05-25] MEDS: VANCOMYCIN 1,250 MG in DEXTROSE 5%-WATER - 250 ML IVPB SCH (14:43)
[2018-05-25] MEDS: BISACODYL 10 MG SUPP.RECT RC SCH (14:43)
[2018-05-25] MEDS: RANITIDINE HCL 150 MG/10 ML UNIT-DOSE GT SCH ×2 (14:43→22:55)
[2018-05-25] MEDS: POLYETHYLENE GLYCOL 3350 119 GM BTL GT SCH (14:43)
[2018-05-25] MEDS: DOCUSATE NA 100 MG/10 ML UNIT-DOSE CUPS GT SCH (14:43)
[2018-05-25] MEDS: METOCLOPRAMIDE HCL 5 MG/5 ML UNIT DOSE CUP GT SCH ×2 (14:43→23:22)
--- NOTE | 2018-05-25 15:53 | PN ---
Progress Note, Physician History of Present Illness: Pt extremely weak but responsive. Febrile to 101.3F last night, hypotensive. - Current Medication List Current Medications: Active Medications Acetaminophen (Tylenol -) 650 mg NR Q4H PRN PRN Reason: PAIN 1-3 Last Admin: 05/25/18 14:42 Dose: 650 mg Acetylcysteine (Mucomyst 20 Oral / Inh Use Only*) 200 mg NEB RQID [facility] Last Admin: 05/25/18 11:56 Dose: 200 mg Albuterol Sulfate (Ventolin 0.5% -) 1 amp NEB RQID [facility] Last Admin: 05/25/18 11:56 Dose: 1 amp Bisacodyl (Dulcolax Suppository -) 10 mg RC DAILY [facility] Last Admin: 05/25/18 14:43 Dose: Not Given Budesonide/Formoterol Fumarate (Symbicort 80/4.5mcg -) 2 puff IH BID [facility] Last Admin: 05/24/18 21:15 Dose: Not Given Diazepam (Valium -) 5 mg GT TID [facility] Last Admin: 05/25/18 14:42 Dose: 5 mg Docusate Sodium (Colace Liquid -) 300 mg GT DAILY [facility] Last Admin: 05/25/18 14:43 Dose: 300 mg Heparin Sodium (Porcine) (Heparin -) 5,000 unit SQ TID [facility] Last Admin: 05/25/18 14:44 Dose: Not Given Vancomycin HCl 1,250 mg/ (Dextrose) 250 mls @ 250 mls/2 hr IVPB Q24H [facility]; Protocol Last Admin: 05/25/18 14:43 Dose: 250 mls/2 hr Meropenem 1 gm/ Dextrose 100 mls @ 200 mls/hr IVPB Q8H-IV [facility] Last Admin: 05/25/18 10:21 Dose: 200 mls/hr Amino Acids (Clinimix -) 1,000 mls @ 75 mls/hr IV Q13H [facility] Last Admin: 05/25/18 10:22 Dose: 75 mls/hr Metoclopramide HCl (Reglan Oral Solution -) 10 mg GT BID [facility] Last Admin: 05/25/18 14:43 Dose: 10 mg Metoprolol Tartrate (Lopressor Injection -) 5 mg IVPUSH Q4H PRN PRN Reason: HYPERTENSION Last Admin: 05/17/18 18:00 Dose: 5 mg Morphine Sulfate (Morphine Sulfate) 1 mg IVPUSH Q4H PRN PRN Reason: PAIN LEVEL 7 - 10 Last Admin: 05/25/18 05:12 Dose: 1 mg Oxycodone HCl (Roxicodone -) 5 mg GT Q4H PRN PRN Reason: PAIN LEVEL 4 - 6 Last Admin: 05/18/18 17:22 Dose: 5 mg Polyethylene Glycol (Miralax (For Daily Use) -) 17 gm GT DAILY [facility] Last Admin: 05/25/18 14:43 Dose: Not Given Ranitidine HCl (Zantac Oral Solution -) 150 mg GT BID [facility] Last Admin: 05/25/18 14:43 Dose: 150 mg Senna (Senna -) 2 tab PO HS [facility] Last Admin: 05/24/18 21:15 Dose: Not Given - Objective Vital Signs: Vital Signs Temperature 98.6 F 05/25/18 13:59 Pulse Rate 99 H 05/25/18 13:59 Respiratory Rate 22 H 05/25/18 13:59 Blood Pressure 88/58 L 05/25/18 13:59 O2 Sat by Pulse Oximetry (%) 100 05/25/18 09:00 Constitutional: Yes: Cachectic Cardiovascular: Yes: Tachycardia Respiratory: Yes: Rhonchi Gastrointestinal: Yes: Normal Bowel Sounds, Soft Extremities: Yes: WNL Integumentary: Yes: WNL Neurological: Yes: Weakness Labs: CBC, BMP 05/24/18 06:10 05/24/18 06:10 INR, PTT INR 1.23 (0.83-1.09) H 05/20/18 06:00 Problem List - Problems (1) Acute hypoxemic respiratory failure Code(s): J96.01 - ACUTE RESPIRATORY FAILURE WITH HYPOXIA (2) Lung abscess Code(s): J85.2 - ABSCESS OF LUNG WITHOUT PNEUMONIA Qualifiers: Pulmonary abscess pneumonia presence: without pneumonia Laterality: left Lung location: upper lobe of lung Qualified Code(s): J85.2 - Abscess of lung without pneumonia (3) Sepsis Code(s): A41.9 - SEPSIS, UNSPECIFIED ORGANISM (4) COPD (chronic obstructive pulmonary disease) Code(s): J44.9 - CHRONIC OBSTRUCTIVE PULMONARY DISEASE, UNSPECIFIED Qualifiers: COPD type: COPD with acute exacerbation Qualified Code(s): J44.1 - Chronic obstructive pulmonary disease with (acute) exacerbation (5) Cavitary lesion of lung Code(s): J98.4 - OTHER DISORDERS OF LUNG Assessment/Plan Sepsis Lung Abscess PNA Atelectasis/Mucous plugging Pt febrile last night Repeat Blood cultures, Diflucan IV x 1 dose Vancomycin level noted, will adjust dose Continue Meropenem Monitor temperature trend Chest PT/suctioning Aspiration precautions continue supportive care
[2018-05-25] MEDS ORDERED: FLUCONAZOLE 400 MG/NS 200 ML IVPB ONE (15:57)
[2018-05-25] MEDS: SENNOSIDES 8.6MG TABLET (FP) PO SCH (22:55)
[2018-05-26] MEDS ORDERED: PT OWN MED DRAWER 7, Y5N ONE ×4 (02:51→16:29)
[2018-05-26] MEDS: VANCOMYCIN 1,250 MG in DEXTROSE 5%-WATER - 250 ML IVPB SCH ×2 (03:05→17:15)
[2018-05-26] MEDS: AMINO ACIDS 4.25%/D5W 1,000 ML IV SCH ×3 (03:06→23:55)
[2018-05-26] MEDS: MEROPENEM 1 GM in DEXTROSE 5%-WATER 100 ML IVPB SCH ×3 (03:06→18:30)
[2018-05-26] MEDS: HEPARIN NA (PORCINE) 5,000 UNITS/ML 1ML VIAL SQ SCH ×3 (06:11→21:35)
[2018-05-26] MEDS: diazePAM 5 MG TABLET GT SCH ×3 (06:11→21:37)
[2018-05-26] MEDS: ACETYLCYSTEINE 20% 200MG/ML 4 ML VIAL *FOR ORAL / INH USE ONLY NEB SCH ×4 (07:20→19:55)
[2018-05-26] MEDS: ALBUTEROL SO4 0.5 % INH SOLN 2.5 MG/0.5 ML VIAL.NEB. NEB SCH ×4 (07:20→19:55)
[2018-05-26 07:25] LABS: ALBUMIN 1.3 g/dl (3.4-5.0); ALK PHOS 169 U/L (45-117); ANION GAP 4 MMOL/L (8-16); BILIRUBIN,TOTAL 0.4 mg/dL (0.2-1); BLOOD UREA NITROGEN 14 mg/dL (7-18); CALCIUM 7.3 mg/dL (8.5-10.1); CHLORIDE 92 mmol/L (98-107); CO2 42 mmol/L (21-32); CREATININE 0.2 mg/dL (0.55-1.3); GLUCOSE,RANDOM 105 mg/dL (74-106); MAGNESIUM 2.1 mg/dL (1.8-2.4); POTASSIUM 3.5 mmol/L (3.5-5.1); SGOT/AST 27 U/L (15-37); SGPT/ALT 23 U/L (13-61); SODIUM 137 mmol/L (136-145); TOT PROT 5.4 g/dl (6.4-8.2)
[2018-05-26 08:26] LABS: BASO % 0.1 % (0-2.0); EOS % 1.1 % (0-4.5); HEMATOCRIT 23.3 % (35.4-49); LYMPH % 3.9 % (8-40); MCH 32.4 pg (25.7-33.7); MCHC 34.1 g/dl (32.0-35.9); MEAN CELL VOLUME 94.8 fl (80-96); MONO % 11.2 % (3.8-10.2); NEUT % 83.7 % (42.8-82.8); PLATELET COUNT 318 K/MM3 (134-434); RBC 2.46 M/mm3 (4.00-5.60); RDW 14.3 % (11.9-15.9); WHITE BLOOD COUNT 16.1 K/mm3 (4.0-10.0)
--- NOTE | 2018-05-26 10:25 | PN ---
Progress Note, Physician History of Present Illness: pulmonary more alert,on o2,less congested - Current Medication List Current Medications: Active Medications Acetaminophen (Tylenol -) 650 mg NR Q4H PRN PRN Reason: PAIN 1-3 Last Admin: 05/25/18 14:42 Dose: 650 mg Acetylcysteine (Mucomyst 20 Oral / Inh Use Only*) 200 mg NEB RQID [facility] Last Admin: 05/26/18 07:20 Dose: 200 mg Albuterol Sulfate (Ventolin 0.5% -) 1 amp NEB RQID [facility] Last Admin: 05/26/18 07:20 Dose: 1 amp Bisacodyl (Dulcolax Suppository -) 10 mg RC DAILY [facility] Last Admin: 05/25/18 14:43 Dose: Not Given Budesonide/Formoterol Fumarate (Symbicort 80/4.5mcg -) 2 puff IH BID [facility] Last Admin: 05/25/18 22:57 Dose: Not Given Diazepam (Valium -) 5 mg GT TID [facility] Last Admin: 05/26/18 06:11 Dose: Not Given Docusate Sodium (Colace Liquid -) 300 mg GT DAILY [facility] Last Admin: 05/25/18 14:43 Dose: 300 mg Heparin Sodium (Porcine) (Heparin -) 5,000 unit SQ TID [facility] Last Admin: 05/26/18 06:11 Dose: Not Given Meropenem 1 gm/ Dextrose 100 mls @ 200 mls/hr IVPB Q8H-IV [facility] Last Admin: 05/26/18 03:06 Dose: 200 mls/hr Amino Acids (Clinimix -) 1,000 mls @ 75 mls/hr IV Q13H [facility] Last Admin: 05/26/18 03:06 Dose: 75 mls/hr Vancomycin HCl 1,250 mg/ (Dextrose) 250 mls @ 166.667 mls/hr IVPB BID@0200, 1400 [facility]; Protocol Last Admin: 05/26/18 03:05 Dose: 166.667 mls/hr Potassium Phosphate 30 mm/ (Dextrose) 510 mls @ 85 mls/hr IVPB ONCE ONE Stop: 05/26/18 16:29 Metoclopramide HCl (Reglan Oral Solution -) 10 mg GT BID [facility] Last Admin: 05/25/18 23:22 Dose: 10 mg Metoprolol Tartrate (Lopressor Injection -) 5 mg IVPUSH Q4H PRN PRN Reason: HYPERTENSION Last Admin: 05/17/18 18:00 Dose: 5 mg Polyethylene Glycol (Miralax (For Daily Use) -) 17 gm GT DAILY [facility] Last Admin: 05/25/18 14:43 Dose: Not Given Ranitidine HCl (Zantac Oral Solution -) 150 mg GT BID [facility] Last Admin: 05/25/18 22:55 Dose: 150 mg Senna (Senna -) 2 tab PO HS [facility] Last Admin: 05/25/18 22:55 Dose: 2 tab - Objective Vital Signs: Vital Signs Temperature 98.2 F 05/25/18 21:00 Pulse Rate 78 05/26/18 05:00 Respiratory Rate 20 05/26/18 05:00 Blood Pressure 98/57 L 05/26/18 05:00 O2 Sat by Pulse Oximetry (%) 100 05/25/18 21:00 Constitutional: Yes: Calm, Cachectic Eyes: Yes: WNL HENT: Yes: WNL Neck: Yes: WNL Cardiovascular: Yes: Regular Rate and Rhythm, S1, S2 Respiratory: Yes: Rhonchi (scattered rhonchi) Gastrointestinal: Yes: Normal Bowel Sounds, Soft Extremities: Yes: WNL Edema: No Labs: CBC, BMP 05/26/18 05:30 05/26/18 05:30 INR, PTT INR 1.23 (0.83-1.09) H 05/20/18 06:00 Problem List - Problems (1) Atelectasis Code(s): J98.11 - ATELECTASIS (2) Acute hypoxemic respiratory failure Code(s): J96.01 - ACUTE RESPIRATORY FAILURE WITH HYPOXIA Assessment/Plan (1) Lung abscess Code(s): J85.2 - ABSCESS OF LUNG WITHOUT PNEUMONIA Qualifiers: Pulmonary abscess pneumonia presence: without pneumonia Laterality: left Lung location: upper lobe of lung Qualified Code(s): J85.2 - Abscess of lung without pneumonia (2) Aspiration of formula Code(s): P24.30 - ASPIRAT OF MILK AND REGURGITATED FOOD W/O RESP SYMP (3) COPD (chronic obstructive pulmonary disease) Code(s): J44.9 - CHRONIC OBSTRUCTIVE PULMONARY DISEASE, UNSPECIFIED Qualifiers: COPD type: COPD with acute exacerbation Qualified Code(s): J44.1 - Chronic obstructive pulmonary disease with (acute) exacerbation (4) Cavitary lesion of lung Code(s): J98.4 - OTHER DISORDERS OF LUNG (5) Dysphagia Code(s): R13.10 - DYSPHAGIA, UNSPECIFIED (6) Dystonia Code(s): G24.9 - DYSTONIA, UNSPECIFIED (7) Empyema lung Code(s): J86.9 - PYOTHORAX WITHOUT FISTULA (8) GERD (gastroesophageal reflux disease) Code(s): K21.9 - GASTRO-ESOPHAGEAL REFLUX DISEASE WITHOUT ESOPHAGITIS (9) HTN (hypertension) Code(s): I10 - ESSENTIAL (PRIMARY) HYPERTENSION Qualifiers: (10) Hypoxemia Code(s): R09.02 - HYPOXEMIA (11) Lung mass Code(s): R91.8 - OTHER NONSPECIFIC ABNORMAL FINDING OF LUNG FIELD (12) Neurogenic bladder Code(s): N31.9 - NEUROMUSCULAR DYSFUNCTION OF BLADDER, UNSPECIFIED (13) Pneumonia Code(s): J18.9 - PNEUMONIA, UNSPECIFIED ORGANISM Qualifiers: (14) Protein-calorie malnutrition, severe Code(s): E43 - UNSPECIFIED SEVERE PROTEIN-CALORIE MALNUTRITION (15) Sinus tachycardia Code(s): R00.0 - TACHYCARDIA, UNSPECIFIED (16) Sepsis Code(s): A41.9 - SEPSIS, UNSPECIFIED ORGANISM Assessment/Plan ACUTE HYPOXEMIC RESPIRATORY FAILURE DYSTONIA LUNG ABSCESS LEFT LUNG ATELECTASIS LIKELY MUCUS PLUG RECURRENT ASPIRATION Aspiration precautions 100% NRBM mucomyst chest pt,suctioning f/u chest x-rays ABX per ID BD TX PRN IVF resuscitation pain meds Morphine prn DR MURDOCK
[2018-05-26] MEDS ORDERED: POTASSIUM PHOSPHATE 30 MM in DEXTROSE 5%-WATER - 500 ML IVPB ONE (10:30)
[2018-05-26] MEDS: DOCUSATE NA 100 MG/10 ML UNIT-DOSE CUPS GT SCH (10:39)
[2018-05-26] MEDS: BISACODYL 10 MG SUPP.RECT RC SCH (10:39)
[2018-05-26] MEDS: METOCLOPRAMIDE HCL 5 MG/5 ML UNIT DOSE CUP GT SCH ×2 (10:40→21:36)
--- NOTE | 2018-05-26 10:43 | PN ---
Teaching Attending Note Name of Resident: Yarely Falcon ATTENDING PHYSICIAN STATEMENT I saw and evaluated the patient. I reviewed the resident's note and discussed the case with the resident. I agree with the resident's findings and plan as documented with exceptions below. SUBJECTIVE: Patient seen and examined, Overall breathing the same, denies pain, lethargic minimal responses with nodding. OBJECTIVE: Vital Signs Period Temp Pulse Resp BP Sys/Marroquin Pulse Ox Last 24 Hr 98.2 F-99.2 F 78-104 18-22 88-98/55-60 100 Intake & Output 05/23/18 05/24/18 05/25/18 05/26/18 23:59 23:59 23:59 23:59 Intake Total 1500 0 1915 1350 Output Total 1800 1800 3100 1650 Balance -300 -1800 -1185 -300 General: cachectic male in bed, lethargic, dyspnea, use of accessory muscles of respiration Chest: coarse rales bilaterally, no wheezing, poor air entry Abdomen:Soft, NT, PEG in place Extremities: cachectic, no edema Home Medications Medication Instructions Recorded Acetaminophen [Tylenol] 325 mg GT QID 09/11/17 Albuterol 0.083% Nebulizer Jojo 1 neb NEB Q6H 09/11/17 [Ventolin 0.083% Nebulizer Soln -] Bisacodyl [Biscolax] 10 mg RC DAILY 09/11/17 Diazepam [Valium] 5 mg GT TID 09/11/17 Docusate Liquid [Colace Liquid -] 300 mg GT TID 09/11/17 Lps 16-100 Liquid 30 ml GT BID 09/11/17 Methenamine/Sodium Salicylate 1 each GT DAILY 09/11/17 [Cystex Plus Tablet] Metoclopramide Oral Soln [Reglan 10 mg GT BID 09/11/17 Oral Solution -] Polyethylene Glycol 3350 [Clearlax] 17 gm GT DAILY 09/11/17 Ranitidine [Zantac -] 150 mg GT BID 09/11/17 Sennosides [Senna] 17.2 mg GT HS 09/11/17 Tramadol HCl 50 mg GT TID 09/11/17 Acetaminophen 650 mg PO QID PRN 05/14/18 Metoclopramide Oral Soln [Reglan 10 ml GT TID 05/14/18 Oral Solution -] Moxifloxacin HCl [Vigamox 0.5% -] 1 drop OD TID 05/14/18 Fred/Polymyx B Sulf/Dexameth 1 drop OD DAILY 05/14/18 [Maxitrol Eye Drops -] Prednisolone 1% Ophthalmic [Pred 1 drop OD TID 05/14/18 Forte 1% -] Active Medications Acetaminophen (Tylenol -) 650 mg NR Q4H PRN PRN Reason: PAIN 1-3 Last Admin: 05/25/18 14:42 Dose: 650 mg Acetylcysteine (Mucomyst 20 Oral / Inh Use Only*) 200 mg NEB RQID [facility] Last Admin: 05/26/18 07:20 Dose: 200 mg Albuterol Sulfate (Ventolin 0.5% -) 1 amp NEB ID [facility] Last Admin: 05/26/18 07:20 Dose: 1 amp Bisacodyl (Dulcolax Suppository -) 10 mg RC DAILY [facility] Last Admin: 05/26/18 10:39 Dose: Not Given Budesonide/Formoterol Fumarate (Symbicort 80/4.5mcg -) 2 puff IH BID [facility] Last Admin: 05/25/18 22:57 Dose: Not Given Diazepam (Valium -) 5 mg GT TID [facility] Last Admin: 05/26/18 06:11 Dose: Not Given Docusate Sodium (Colace Liquid -) 300 mg GT DAILY [facility] Last Admin: 05/26/18 10:39 Dose: 300 mg Heparin Sodium (Porcine) (Heparin -) 5,000 unit SQ TID [facility] Last Admin: 05/26/18 06:11 Dose: Not Given Meropenem 1 gm/ Dextrose 100 mls @ 200 mls/hr IVPB Q8H-IV [facility] Last Admin: 05/26/18 10:39 Dose: 200 mls/hr Amino Acids (Clinimix -) 1,000 mls @ 75 mls/hr IV Q13H [facility] Last Admin: 05/26/18 10:38 Dose: 75 mls/hr Vancomycin HCl 1,250 mg/ (Dextrose) 250 mls @ 166.667 mls/hr IVPB BID@0200, 1400 [facility]; Protocol Last Admin: 05/26/18 03:05 Dose: 166.667 mls/hr Potassium Phosphate 30 mm/ (Dextrose) 510 mls @ 85 mls/hr IVPB ONCE ONE Stop: 05/26/18 16:29 Metoclopramide HCl (Reglan Oral Solution -) 10 mg GT BID [facility] Last Admin: 05/26/18 10:40 Dose: 10 mg Metoprolol Tartrate (Lopressor Injection -) 5 mg IVPUSH Q4H PRN PRN Reason: HYPERTENSION Last Admin: 05/17/18 18:00 Dose: 5 mg Polyethylene Glycol (Miralax (For Daily Use) -) 17 gm GT DAILY [facility] Last Admin: 05/25/18 14:43 Dose: Not Given Ranitidine HCl (Zantac Oral Solution -) 150 mg GT BID [facility] Last Admin: 05/25/18 22:55 Dose: 150 mg Senna (Senna -) 2 tab PO HS [facility] Last Admin: 05/25/18 22:55 Dose: 2 tab Laboratory Results - last 24 hr 05/25/18 05/26/18 05/26/18 10:25 05:30 05:30 WBC 16.1 H RBC 2.46 L Hgb 8.0 L Hct 23.3 L MCV 94.8 MCH 32.4 MCHC 34.1 RDW 14.3 Plt Count 318 MPV 8.0 Absolute Neuts (auto) 13.4 H Neutrophils % 83.7 H Lymphocytes % 3.9 L Monocytes % 11.2 H Eosinophils % 1.1 D Basophils % 0.1 Nucleated RBC % 0 Sodium 137 Potassium 3.5 Chloride 92 L Carbon Dioxide 42 H Anion Gap 4 L BUN 14 Creatinine 0.2 L Creat Clearance w eGFR > 60 POC Glucometer Random Glucose 105 Calcium 7.3 L Phosphorus 2.0 L Magnesium 2.1 Total Bilirubin 0.4 AST 27 ALT 23 Alkaline Phosphatase 169 H Total Protein 5.4 L Albumin 1.3 L Vancomycin Pre-Dose 6.8 L 05/26/18 06:37 WBC RBC Hgb Hct MCV MCH MCHC RDW Plt Count MPV Absolute Neuts (auto) Neutrophils % Lymphocytes % Monocytes % Eosinophils % Basophils % Nucleated RBC % Sodium Potassium Chloride Carbon Dioxide Anion Gap BUN Creatinine Creat Clearance w eGFR POC Glucometer 105 Random Glucose Calcium Phosphorus Magnesium Total Bilirubin AST ALT Alkaline Phosphatase Total Protein Albumin Vancomycin Pre-Dose Microbiology 05/15/18 12:54 Blood - Peripheral Venous Blood Culture - Final NO GROWTH AFTER 5 DAYS INCUBATION 05/15/18 12:05 Blood - Peripheral Venous Blood Culture - Final NO GROWTH AFTER 5 DAYS INCUBATION 05/15/18 22:20 Urine - Urine Suprapubic Urine Culture - Final Enterococcus Faecalis 05/15/18 22:20 Urine For Antigen Detection Legionella Antigen - Final 05/15/18 22:20 Urine For Antigen Detection Streptococcus pneumoniae Antigen (M - Final ASSESSMENT AND PLAN: 62 yom with pMHx of muscular dystonia, peg, sent from [place] with abnormal CXR/PNA -Acute hypoxemic respiratory failure -Lung abscess, suspect from recurrent aspiration -Left lung collapse, suspect related to mucous plugging -Aspiration -Muscular dystonia -Hypokalemia -Hypophosphatemia -Hypotension Plan: Extensive discussion held with patient and brother David. Explained overall poor prognosis and unlikely patient will survive this infection. patient wants to continue with supportive measures and declines CPR/intubation. Continue supportive measures, frequent suctioning/Mucomyst QID. Vancomycin d/manolo. meropenem per ID. WBC high, suspect ongoing recurrent aspiration. Per discussion with Dr. Joe, not candidate for IR guided drainage, given already draining in tracheobronchial tree. Per discussion with dr. Garcia, not a candidate for bronchoscopy given high risk given tenuous respiratory failure. Not a candidate for bipap given high aspiration risk and lack of effort/co- operation on NRB currently. Clinimix IV. Unable to resume tube feeds given high aspiration risk, tenuous respiratory status. Discussed with nursing to attempt to taper to nasal cannula , will address resumption of tube feeds at a lower rate then. Plan discussed with nursing in detail, all questions answered
[2018-05-26] MEDS: RANITIDINE HCL 150 MG/10 ML UNIT-DOSE GT SCH ×2 (10:53→21:37)
[2018-05-26] MEDS: BUDESONIDE/FORMETEROL FUMARATE 80/4.5 mcg INHALER IH SCH ×2 (11:33→21:36)
[2018-05-26] MEDS: POLYETHYLENE GLYCOL 3350 119 GM BTL GT SCH (11:33)
[2018-05-26] MEDS ORDERED: ALBUTEROL SO4 0.042% IH SOL 1.25 MG/3 ML VIAL.NEB NEB PRN (13:11)
--- NOTE | 2018-05-26 13:37 | PN ---
Progress Note (short form) - Note Progress Note: s: sob stable. no cp palps dizzy o: Vital Signs Period Temp Pulse Resp BP Sys/Marroquin Pulse Ox Last 24 Hr 98.2 F-99.2 F 78-104 18-22 88-98/55-60 100 nad no jvd scattered rhonci, nl eff rrr s1s2 no mrg no le e/c/c no jaundice diaphoresis aaox3 abd nt nd pos bs Current Medications Acetaminophen (Tylenol -) 650 mg NR Q4H PRN PRN Reason: PAIN 1-3 Last Admin: 05/25/18 14:42 Dose: 650 mg Acetylcysteine (Mucomyst 20 Oral / Inh Use Only*) 200 mg NEB RQID [facility] Last Admin: 05/26/18 11:27 Dose: 200 mg Albuterol Sulfate (Ventolin 0.5% -) 1 amp NEB RQID [facility] Last Admin: 05/26/18 11:27 Dose: 1 amp Albuterol Sulfate (Ventolin 0.042trength) -) 1 amp NEB Q4H PRN PRN Reason: SHORT OF BREATH/WHEEZING Bisacodyl (Dulcolax Suppository -) 10 mg RC DAILY [facility] Last Admin: 05/26/18 10:39 Dose: Not Given Budesonide/Formoterol Fumarate (Symbicort 80/4.5mcg -) 2 puff IH BID [facility] Last Admin: 05/26/18 11:33 Dose: Not Given Diazepam (Valium -) 5 mg GT TID [facility] Last Admin: 05/26/18 06:11 Dose: Not Given Docusate Sodium (Colace Liquid -) 300 mg GT DAILY [facility] Last Admin: 05/26/18 10:39 Dose: 300 mg Heparin Sodium (Porcine) (Heparin -) 5,000 unit SQ TID [facility] Last Admin: 05/26/18 06:11 Dose: Not Given Meropenem 1 gm/ Dextrose 100 mls @ 200 mls/hr IVPB Q8H-IV [facility] Last Admin: 05/26/18 10:39 Dose: 200 mls/hr Amino Acids (Clinimix -) 1,000 mls @ 75 mls/hr IV Q13H [facility] Last Admin: 05/26/18 10:38 Dose: 75 mls/hr Vancomycin HCl 1,250 mg/ (Dextrose) 250 mls @ 166.667 mls/hr IVPB BID@0200, 1400 [facility]; Protocol Last Admin: 05/26/18 03:05 Dose: 166.667 mls/hr Potassium Phosphate 30 mm/ (Dextrose) 510 mls @ 85 mls/hr IVPB ONCE ONE Stop: 05/26/18 16:29 Last Admin: 05/26/18 11:00 Dose: 85 mls/hr Metoclopramide HCl (Reglan Oral Solution -) 10 mg GT BID [facility] Last Admin: 05/26/18 10:40 Dose: 10 mg Metoprolol Tartrate (Lopressor Injection -) 5 mg IVPUSH Q4H PRN PRN Reason: HYPERTENSION Last Admin: 05/17/18 18:00 Dose: 5 mg Polyethylene Glycol (Miralax (For Daily Use) -) 17 gm GT DAILY [facility] Last Admin: 05/26/18 11:33 Dose: Not Given Ranitidine HCl (Zantac Oral Solution -) 150 mg GT BID [facility] Last Admin: 05/26/18 10:53 Dose: 150 mg Senna (Senna -) 2 tab PO HS [facility] Last Admin: 05/25/18 22:55 Dose: 2 tab ecg: sinus tach, nl intervals, irbbb echo 04/2018: tds; nl lv/rv, mod tr, nl rvsp ct chest: rul mass/fluid collection a/p: 62 m hx muscular dystonia, peg, [place] cxr/ pna. pna, lung abscess: -abx per ID sinus tachy: -echo and ecg unremarkable -tele showed sinus tach, no arrhythmias - no longer on monitoring - sinus tachy likely secondary to underlying infection, no specific tx for HR needed
--- NOTE | 2018-05-26 15:21 | PN ---
Progress Note, Physician History of Present Illness: stable but weak barely responsive too weak for doing anything - Current Medication List Current Medications: Active Medications Acetaminophen (Tylenol -) 650 mg NR Q4H PRN PRN Reason: PAIN 1-3 Last Admin: 05/25/18 14:42 Dose: 650 mg Acetylcysteine (Mucomyst 20 Oral / Inh Use Only*) 200 mg NEB RQID [facility] Last Admin: 05/26/18 11:27 Dose: 200 mg Albuterol Sulfate (Ventolin 0.5% -) 1 amp NEB RQID [facility] Last Admin: 05/26/18 11:27 Dose: 1 amp Albuterol Sulfate (Ventolin 0.042trength) -) 1 amp NEB Q4H PRN PRN Reason: SHORT OF BREATH/WHEEZING Bisacodyl (Dulcolax Suppository -) 10 mg RC DAILY [facility] Last Admin: 05/26/18 10:39 Dose: Not Given Budesonide/Formoterol Fumarate (Symbicort 80/4.5mcg -) 2 puff IH BID [facility] Last Admin: 05/26/18 11:33 Dose: Not Given Diazepam (Valium -) 5 mg GT TID [facility] Last Admin: 05/26/18 14:39 Dose: Not Given Docusate Sodium (Colace Liquid -) 300 mg GT DAILY [facility] Last Admin: 05/26/18 10:39 Dose: 300 mg Heparin Sodium (Porcine) (Heparin -) 5,000 unit SQ TID [facility] Last Admin: 05/26/18 14:38 Dose: Not Given Meropenem 1 gm/ Dextrose 100 mls @ 200 mls/hr IVPB Q8H-IV [facility] Last Admin: 05/26/18 10:39 Dose: 200 mls/hr Amino Acids (Clinimix -) 1,000 mls @ 75 mls/hr IV Q13H [facility] Last Admin: 05/26/18 10:38 Dose: 75 mls/hr Vancomycin HCl 1,250 mg/ (Dextrose) 250 mls @ 166.667 mls/hr IVPB BID@0200, 1400 [facility]; Protocol Last Admin: 05/26/18 03:05 Dose: 166.667 mls/hr Potassium Phosphate 30 mm/ (Dextrose) 510 mls @ 85 mls/hr IVPB ONCE ONE Stop: 05/26/18 16:29 Last Admin: 05/26/18 11:00 Dose: 85 mls/hr Metoclopramide HCl (Reglan Oral Solution -) 10 mg GT BID [facility] Last Admin: 05/26/18 10:40 Dose: 10 mg Metoprolol Tartrate (Lopressor Injection -) 5 mg IVPUSH Q4H PRN PRN Reason: HYPERTENSION Last Admin: 05/17/18 18:00 Dose: 5 mg Polyethylene Glycol (Miralax (For Daily Use) -) 17 gm GT DAILY [facility] Last Admin: 05/26/18 11:33 Dose: Not Given Ranitidine HCl (Zantac Oral Solution -) 150 mg GT BID [facility] Last Admin: 05/26/18 10:53 Dose: 150 mg Senna (Senna -) 2 tab PO HS [facility] Last Admin: 05/25/18 22:55 Dose: 2 tab - Objective Vital Signs: Vital Signs Temperature 97.6 F 05/26/18 14:00 Pulse Rate 130 H 05/26/18 14:00 Respiratory Rate 20 05/26/18 14:00 Blood Pressure 96/53 L 05/26/18 14:00 O2 Sat by Pulse Oximetry (%) 100 05/25/18 21:00 Constitutional: Yes: No Distress Cardiovascular: Yes: Regular Rate and Rhythm Respiratory: Yes: Regular, Poor Air Entry, Other (on vent mask poor resp effort) Gastrointestinal: Yes: Normal Bowel Sounds, Soft, Other (peg tube) Musculoskeletal: Yes: Other Extremities: Yes: Other Neurological: Yes: Alert, Other Psychiatric: Yes: Other Labs: CBC, BMP 05/26/18 05:30 05/26/18 05:30 INR, PTT INR 1.23 (0.83-1.09) H 05/20/18 06:00 Assessment/Plan Problem List - Problems (1) Cavitary lesion of lung Code(s): J98.4 - OTHER DISORDERS OF LUNG (2) COPD (chronic obstructive pulmonary disease) Code(s): J44.9 - CHRONIC OBSTRUCTIVE PULMONARY DISEASE, UNSPECIFIED Qualifiers: COPD type: COPD with acute exacerbation Qualified Code(s): J44.1 - Chronic obstructive pulmonary disease with (acute) exacerbation (3) Constipation Code(s): K59.00 - CONSTIPATION, UNSPECIFIED Qualifiers: Constipation type: unspecified constipation type Qualified Code(s): K59.00 - Constipation, unspecified (4) Dysphagia Code(s): R13.10 - DYSPHAGIA, UNSPECIFIED (5) GERD (gastroesophageal reflux disease) Code(s): K21.9 - GASTRO-ESOPHAGEAL REFLUX DISEASE WITHOUT ESOPHAGITIS (6) Protein-calorie malnutrition, severe Code(s): E43 - UNSPECIFIED SEVERE PROTEIN-CALORIE MALNUTRITION plan abx continue current mgmt nutrition support resp support rest as per the team
--- NOTE | 2018-05-26 16:34 | PN ---
<Yarely Falcon - Last Filed: 05/26/18 16:37> Physical Exam: SUBJECTIVE: Patient seen and examined OBJECTIVE: Vital Signs Period Temp Pulse Resp BP Sys/Marroquin Pulse Ox Last 24 Hr 97.6 F-99.2 F 78-130 18-20 89-98/53-60 100 GENERAL: The patient is awake, alert, and fully oriented, in no acute distress. HEAD: Normal with no signs of trauma. EYES: PERRL, extraocular movements intact, sclera anicteric, conjunctiva clear. No ptosis. ENT: Ears normal, nares patent, oropharynx clear without exudates, moist mucous membranes. NECK: Trachea midline, full range of motion, supple. LUNGS: Breath sounds equal, clear to auscultation bilaterally, no wheezes, no crackles, no accessory muscle use. HEART: Regular rate and rhythm, S1, S2 without murmur, rub or gallop. ABDOMEN: Soft, nontender, nondistended, normoactive bowel sounds, no guarding, no rebound, no hepatosplenomegaly, no masses. EXTREMITIES: 2+ pulses, warm, well-perfused, no edema. NEUROLOGICAL: Cranial nerves II through XII grossly intact. Normal speech, gait not observed. PSYCH: Normal mood, normal affect. SKIN: Warm, dry, normal turgor, no rashes or lesions noted Laboratory Results - last 24 hr 05/26/18 05/26/18 05/26/18 05:30 05:30 06:37 WBC 16.1 H RBC 2.46 L Hgb 8.0 L Hct 23.3 L MCV 94.8 MCH 32.4 MCHC 34.1 RDW 14.3 Plt Count 318 MPV 8.0 Absolute Neuts (auto) 13.4 H Neutrophils % 83.7 H Lymphocytes % 3.9 L Monocytes % 11.2 H Eosinophils % 1.1 D Basophils % 0.1 Nucleated RBC % 0 Sodium 137 Potassium 3.5 Chloride 92 L Carbon Dioxide 42 H Anion Gap 4 L BUN 14 Creatinine 0.2 L Creat Clearance w eGFR > 60 POC Glucometer 105 Random Glucose 105 Calcium 7.3 L Phosphorus 2.0 L Magnesium 2.1 Total Bilirubin 0.4 AST 27 ALT 23 Alkaline Phosphatase 169 H Total Protein 5.4 L Albumin 1.3 L 05/26/18 10:53 WBC RBC Hgb Hct MCV MCH MCHC RDW Plt Count MPV Absolute Neuts (auto) Neutrophils % Lymphocytes % Monocytes % Eosinophils % Basophils % Nucleated RBC % Sodium Potassium Chloride Carbon Dioxide Anion Gap BUN Creatinine Creat Clearance w eGFR POC Glucometer 115 Random Glucose Calcium Phosphorus Magnesium Total Bilirubin AST ALT Alkaline Phosphatase Total Protein Albumin Active Medications Generic Name Dose Route Start Last Admin Trade Name Freq PRN Reason Stop Dose Admin Acetaminophen 650 mg 05/14/18 17:04 05/25/18 14:42 Tylenol - NR 650 mg Q4H PRN Administration PAIN 1-3 Acetylcysteine 200 mg 05/21/18 12:00 05/26/18 15:39 Mucomyst 20 Oral / Inh Use Only* NEB 200 mg RQID [facility] Administration Albuterol Sulfate 1 amp 05/21/18 12:00 05/26/18 15:40 Ventolin 0.5% - NEB 1 amp RQID [facility] Administration Albuterol Sulfate 1 amp 05/26/18 13:11 Ventolin 0.042trength) - NEB Q4H PRN SHORT OF BREATH/WHEEZING Bisacodyl 10 mg 05/15/18 10:00 05/26/18 10:39 Dulcolax Suppository - RC Not Given DAILY [facility] Budesonide/Formoterol Fumarate 2 puff 05/15/18 22:00 05/26/18 11:33 Symbicort 80/4.5mcg - IH Not Given BID [facility] Diazepam 5 mg 05/14/18 22:00 05/26/18 14:39 Valium - GT Not Given TID [facility] Docusate Sodium 300 mg 05/15/18 10:00 05/26/18 10:39 Colace Liquid - GT 300 mg DAILY [facility] Administration Heparin Sodium (Porcine) 5,000 unit 05/15/18 22:00 05/26/18 14:38 Heparin - SQ Not Given TID [facility] Meropenem 1 gm/ Dextrose 100 mls @ 200 mls/hr 05/15/18 11:00 05/26/18 10:39 IVPB 200 mls/hr Q8H-IV [facility] Administration Amino Acids 1,000 mls @ 75 mls/hr 05/22/18 15:54 05/26/18 10:38 Clinimix - IV 75 mls/hr Q13H [facility] Administration Vancomycin HCl 1,250 mg/ 250 mls @ 166.667 mls/hr 05/26/18 02:00 05/26/18 03: 05 Dextrose IVPB 166.667 mls/hr BID@0200,1400 [facility] Administration Protocol Metoclopramide HCl 10 mg 05/14/18 22:00 05/26/18 10:40 Reglan Oral Solution - GT 10 mg BID [facility] Administration Metoprolol Tartrate 5 mg 05/15/18 12:06 05/17/18 18:00 Lopressor Injection - IVPUSH 5 mg Q4H PRN Administration HYPERTENSION Polyethylene Glycol 17 gm 05/15/18 10:00 05/26/18 11:33 Miralax (For Daily Use) - GT Not Given DAILY [facility] Ranitidine HCl 150 mg 05/22/18 10:53 05/26/18 10:53 Zantac Oral Solution - GT 150 mg BID [facility] Administration Senna 2 tab 05/14/18 22:00 05/25/18 22:55 Senna - PO 2 tab HS [facility] Administration ASSESSMENT/PLAN: Patient is a 61-year old male, with history of bronchiectasis, neurogenic bladder with a suprapubic tube, asthma,COPD, GERD, HTN, carpal tunnel, hemoptysis, dysphagsia requiring a peg tub for feed. dystonia for 32 yrs, bronchiectasis was sent from [facility] for evaluation of abnormal CXR. # Shortness of breath likely from aspiration pneumonia and lung abscess-not improving Continue Merepenam and Vancomycin Day 11 Continue Chest PT, Ipratropium nebs, Symbicort. Mucomyst # Lung mass necrotizing mass vs abscess vs malignancy with collapsed left lung No interventions due to risk of spreading in the tracheobronchial tree, discussed with IR. Patient too unstable for bronchoscopy Prognosis guarded. # UTI (E.faecalis) resolved. # Sinus tachycardia Likely from sepsis vs anxiety. Cardiac unlikely, ekg normal, echo normal. No events on tele. Metoprolol 5mg Q4H PRN # Dysphagia PEG tube in place. Hold feeds due to aspirations. # Normocytic anemia H/H Stable since last admission. Will monitor # Constipation Continue Bowel regimen. # FEN IV Clinimix @ 75 ml/hr Electrolytes to be repeated in AM. Repleted phos NPO for now, no feeding from the PEG tube, aspiration precautions. # Prophylaxis For DVT: SCDs For GI: On Ranitidine # Code Status: DNR/DNI (patient confirmed 05/22/18) Prognosis guarded. # Dispo: Duration of stay unknown. Admitted in Tele. Plan of care explained to the patient. He understands. Case discussed with Dr. Prince. Problem List - Problems (1) Lung abscess Code(s): J85.2 - ABSCESS OF LUNG WITHOUT PNEUMONIA Qualifiers: Pulmonary abscess pneumonia presence: without pneumonia Laterality: left Lung location: upper lobe of lung Qualified Code(s): J85.2 - Abscess of lung without pneumonia (2) Sepsis Code(s): A41.9 - SEPSIS, UNSPECIFIED ORGANISM (3) Aspiration of formula Code(s): P24.30 - ASPIRAT OF MILK AND REGURGITATED FOOD W/O RESP SYMP (4) Asthma Code(s): J45.909 - UNSPECIFIED ASTHMA, UNCOMPLICATED (5) COPD (chronic obstructive pulmonary disease) Code(s): J44.9 - CHRONIC OBSTRUCTIVE PULMONARY DISEASE, UNSPECIFIED Qualifiers: COPD type: COPD with acute exacerbation Qualified Code(s): J44.1 - Chronic obstructive pulmonary disease with (acute) exacerbation (6) Cavitary lesion of lung Code(s): J98.4 - OTHER DISORDERS OF LUNG Visit type - Emergency Visit Emergency Visit: Yes ED Registration Date: 05/15/18 Care time: The patient presented to the Emergency Department on the above date and was hospitalized for further evaluation of their emergent condition. - New Patient This patient is new to me today: No - Critical Care Critical Care patient: No - Discharge Referral Referred to [facility] Med P.C[facility] No <Sabi Prince - Last Filed: 05/27/18 17:28> Physical Exam: Correction: to physical Exam please refer to attending progress note
[2018-05-26] MEDS: ACETAMINOPHEN 325 MG TABLET (FP) NR PRN (21:35)
[2018-05-26] MEDS: SENNOSIDES 8.6MG TABLET (FP) PO SCH (21:36)
[2018-05-27] MEDS ORDERED: PT OWN MED DRAWER 7, Y5N ONE ×2 (01:33→08:36)
[2018-05-27] MEDS: VANCOMYCIN 1,250 MG in DEXTROSE 5%-WATER - 250 ML IVPB SCH ×2 (01:34→15:00)
[2018-05-27] MEDS: MEROPENEM 1 GM in DEXTROSE 5%-WATER 100 ML IVPB SCH ×3 (01:34→10:30)
[2018-05-27] MEDS: AMINO ACIDS 4.25%/D5W 1,000 ML IV SCH ×2 (04:34→15:00)
[2018-05-27] MEDS: diazePAM 5 MG TABLET GT SCH ×3 (05:20→21:41)
[2018-05-27] MEDS: HEPARIN NA (PORCINE) 5,000 UNITS/ML 1ML VIAL SQ SCH ×2 (05:23→15:00)
[2018-05-27 06:54] LABS: HEMATOCRIT 25.4 % (35.4-49); HEMOGLOBIN 7.9 GM/dL (11.7-16.9); MCHC 31.1 g/dl (32.0-35.9); MEAN CELL VOLUME 96.2 fl (80-96); PLATELET COUNT 304 K/MM3 (134-434); RBC 2.64 M/mm3 (4.00-5.60); RDW 14.7 % (11.9-15.9); WHITE BLOOD COUNT 18.4 K/mm3 (4.0-10.0)
[2018-05-27 07:31] LABS: ALBUMIN 1.4 g/dl (3.4-5.0); ALK PHOS 211 U/L (45-117); ANION GAP 4 MMOL/L (8-16); BILIRUBIN,TOTAL 0.4 mg/dL (0.2-1); BLOOD UREA NITROGEN 16 mg/dL (7-18); CHLORIDE 93 mmol/L (98-107); CO2 42 mmol/L (21-32); CREATININE 0.2 mg/dL (0.55-1.3); GLUCOSE,RANDOM 122 mg/dL (74-106); POTASSIUM 3.9 mmol/L (3.5-5.1); SGOT/AST 42 U/L (15-37); SGPT/ALT 27 U/L (13-61); SODIUM 139 mmol/L (136-145); TOT PROT 5.6 g/dl (6.4-8.2)
[2018-05-27] MEDS: ALBUTEROL SO4 0.5 % INH SOLN 2.5 MG/0.5 ML VIAL.NEB. NEB SCH ×4 (08:10→21:00)
[2018-05-27] MEDS: ACETYLCYSTEINE 20% 200MG/ML 4 ML VIAL *FOR ORAL / INH USE ONLY NEB SCH ×4 (08:10→21:00)
[2018-05-27] MEDS: RANITIDINE HCL 150 MG/10 ML UNIT-DOSE GT SCH (10:05)
--- NOTE | 2018-05-27 10:14 | PN ---
Physical Exam: SUBJECTIVE: Patient seen and examined at bed side this morning. Explained patient's current medical condition, that he is not doing well and that the prognosis is poor. Discussed with the patient about comfort measures (stopping IV antibiotics, lab draws, imaging) and starting on a morphine drip, he noded and said yes. manager fire and Nurse were present at bedside and witnessed it. Called patient's brother Mr. David Nash and told him about patient's wishes to be in comfort care. He will come to the hospital this afternoon at 1:30pm and talk with the patient, then decide about comfort measures. For now, will continue the same treatment. OBJECTIVE: Vital Signs Period Temp Pulse Resp BP Sys/Marroquin Pulse Ox Last 24 Hr 97.4 F-100.6 F 85-130 18-20 88-112/53-77 100-100 GENERAL: Middle aged male, cachectic, lying in bed, in respiratory distress, on non rebreather, patient is awake, lethargic, minimal conversation HEAD: Normal with no signs of trauma. EYES: No Pallor or icterus. ENT: Ears normal, dry mucous membranes. NECK: Supple. LUNGS: Coarse breath sounds +. Using assessory muscles. HEART: Tachycardic, Regular rate and rhythm, S1, S2 without murmur. ABDOMEN: Suprapubic tube in place, PEG, Soft, nontender, no organomegaly. EXTREMITIES: 2+ pulses, warm, well-perfused, no edema. NEUROLOGICAL: No facial droop. Normal speech, gait not observed. PSYCH: Normal mood, normal affect. SKIN: Warm, dry, normal turgor, no rashes or lesions noted Laboratory Results - last 24 hr 05/26/18 05/26/18 05/27/18 10:53 16:27 05:29 WBC RBC Hgb Hct MCV MCH MCHC RDW Plt Count MPV Sodium Potassium Chloride Carbon Dioxide Anion Gap BUN Creatinine Creat Clearance w eGFR POC Glucometer 115 135 150 Random Glucose Calcium Total Bilirubin AST ALT Alkaline Phosphatase Total Protein Albumin 05/27/18 05/27/18 05:30 05:30 WBC 18.4 H RBC 2.64 L Hgb 7.9 L Hct 25.4 L MCV 96.2 H MCH 30.0 MCHC 31.1 L RDW 14.7 Plt Count 304 MPV 8.0 Sodium 139 Potassium 3.9 Chloride 93 L Carbon Dioxide 42 H Anion Gap 4 L BUN 16 Creatinine 0.2 L Creat Clearance w eGFR > 60 POC Glucometer Random Glucose 122 H Calcium 8.0 L Total Bilirubin 0.4 AST 42 H ALT 27 Alkaline Phosphatase 211 H Total Protein 5.6 L Albumin 1.4 L Active Medications Generic Name Dose Route Start Last Admin Trade Name Freq PRN Reason Stop Dose Admin Acetaminophen 650 mg 05/14/18 17:04 05/26/18 21:35 Tylenol - NR 650 mg Q4H PRN Administration PAIN 1-3 Acetylcysteine 200 mg 05/21/18 12:00 05/26/18 19:55 Mucomyst 20 Oral / Inh Use Only* NEB 200 mg RQID [facility] Administration Albuterol Sulfate 1 amp 05/21/18 12:00 05/26/18 19:55 Ventolin 0.5% - NEB 1 amp RQID [facility] Administration Albuterol Sulfate 1 amp 05/26/18 13:11 Ventolin 0.042trength) - NEB Q4H PRN SHORT OF BREATH/WHEEZING Bisacodyl 10 mg 05/15/18 10:00 05/26/18 10:39 Dulcolax Suppository - RC Not Given DAILY [facility] Budesonide/Formoterol Fumarate 2 puff 05/15/18 22:00 05/26/18 21:36 Symbicort 80/4.5mcg - IH Not Given BID [facility] Diazepam 5 mg 05/14/18 22:00 05/27/18 05:20 Valium - GT Not Given TID [facility] Docusate Sodium 300 mg 05/15/18 10:00 05/26/18 10:39 Colace Liquid - GT 300 mg DAILY [facility] Administration Heparin Sodium (Porcine) 5,000 unit 05/15/18 22:00 05/27/18 05:23 Heparin - SQ 5,000 unit TID [facility] Administration Meropenem 1 gm/ Dextrose 100 mls @ 200 mls/hr 05/15/18 11:00 05/27/18 01:34 IVPB 200 mls/hr Q8H-IV [facility] Administration Amino Acids 1,000 mls @ 75 mls/hr 05/22/18 15:54 05/27/18 04:34 Clinimix - IV 75 mls/hr Q13H [facility] Administration Vancomycin HCl 1,250 mg/ 250 mls @ 166.667 mls/hr 05/26/18 02:00 05/27/18 01: 34 Dextrose IVPB 166.667 mls/hr BID@0200,1400 [facility] Administration Protocol Metoclopramide HCl 10 mg 05/14/18 22:00 05/26/18 21:36 Reglan Oral Solution - GT 10 mg BID [facility] Administration Metoprolol Tartrate 5 mg 05/15/18 12:06 05/17/18 18:00 Lopressor Injection - IVPUSH 5 mg Q4H PRN Administration HYPERTENSION Polyethylene Glycol 17 gm 05/15/18 10:00 05/26/18 11:33 Miralax (For Daily Use) - GT Not Given DAILY [facility] Ranitidine HCl 150 mg 05/22/18 10:53 05/26/18 21:37 Zantac Oral Solution - GT 150 mg BID [facility] Administration Senna 2 tab 05/14/18 22:00 05/26/18 21:36 Senna - PO 2 tab HS [facility] Administration ASSESSMENT/PLAN: Patient is a 61-year old male, with history of bronchiectasis, neurogenic bladder with a suprapubic tube, asthma,COPD, GERD, HTN, carpal tunnel, hemoptysis, dysphagsia requiring a peg tub for feed. dystonia for 32 yrs, bronchiectasis was sent from [facility] for evaluation of abnormal CXR. # Shortness of breath likely from aspiration pneumonia and lung abscess- On Non rebreather, leukocytosis rising 18 today. Continue Merepenam and Vancomycin Day 12 Continue Chest PT, Ipratropium nebs, Symbicort. Mucomyst # Lung mass necrotizing mass vs abscess vs malignancy with collapsed left lung No interventions due to risk of spreading in the tracheobronchial tree, discussed with IR. Patient too unstable for bronchoscopy Prognosis guarded. # UTI (E.faecalis) resolved. # Sinus tachycardia Likely from sepsis vs anxiety. Cardiac unlikely, ekg normal, echo normal. No events on tele. Metoprolol 5mg Q4H PRN # Dysphagia PEG tube in place. Hold feeds due to aspirations. # Normocytic anemia H/H Stable since last admission. Will monitor # Constipation Continue Bowel regimen. # FEN IV Clinimix @ 75 ml/hr Electrolytes to be repeated in AM. Repleted phos NPO for now, no feeding from the PEG tube, aspiration precautions. # Prophylaxis For DVT: SCDs For GI: On Ranitidine # Code Status: DNR/DNI. Wants to go for comfort measures, waiting for Brother come today and confirm with the patient. # Dispo: Duration of stay unknown. Admitted in Tele. Plan of care explained to the patient. Case discussed with Dr. Prince. Problem List - Problems (1) Lung abscess Code(s): J85.2 - ABSCESS OF LUNG WITHOUT PNEUMONIA Qualifiers: Pulmonary abscess pneumonia presence: without pneumonia Laterality: left Lung location: upper lobe of lung Qualified Code(s): J85.2 - Abscess of lung without pneumonia (2) Sepsis Code(s): A41.9 - SEPSIS, UNSPECIFIED ORGANISM (3) Aspiration of formula Code(s): P24.30 - ASPIRAT OF MILK AND REGURGITATED FOOD W/O RESP SYMP (4) Asthma Code(s): J45.909 - UNSPECIFIED ASTHMA, UNCOMPLICATED (5) COPD (chronic obstructive pulmonary disease) Code(s): J44.9 - CHRONIC OBSTRUCTIVE PULMONARY DISEASE, UNSPECIFIED Qualifiers: COPD type: COPD with acute exacerbation Qualified Code(s): J44.1 - Chronic obstructive pulmonary disease with (acute) exacerbation (6) Cavitary lesion of lung Code(s): J98.4 - OTHER DISORDERS OF LUNG Visit type - Emergency Visit Emergency Visit: Yes ED Registration Date: 05/15/18 Care time: The patient presented to the Emergency Department on the above date and was hospitalized for further evaluation of their emergent condition. - New Patient This patient is new to me today: No - Critical Care Critical Care patient: No - Discharge Referral Referred to [facility] Med P.C.: No
[2018-05-27] MEDS: POLYETHYLENE GLYCOL 3350 119 GM BTL GT SCH (10:15)
[2018-05-27] MEDS: BUDESONIDE/FORMETEROL FUMARATE 80/4.5 mcg INHALER IH SCH ×2 (10:20→21:40)
[2018-05-27] MEDS: METOCLOPRAMIDE HCL 5 MG/5 ML UNIT DOSE CUP GT SCH (10:25)
[2018-05-27] MEDS: DOCUSATE NA 100 MG/10 ML UNIT-DOSE CUPS GT SCH (10:30)
[2018-05-27] MEDS: BISACODYL 10 MG SUPP.RECT RC SCH (10:35)
--- NOTE | 2018-05-27 11:29 | PN ---
Progress Note (short form) - Note Progress Note: s: lethargic, not answering questions appropriately. appears comfortable o: Vital Signs Period Temp Pulse Resp BP Sys/Marroquin Pulse Ox Last 24 Hr 97.4 F-100.6 F 85-130 18-20 88-112/53-77 100-100 nad no jvd scattered rhonci, nl eff rrr s1s2 no mrg no le e/c/c no jaundice diaphoresis aaox3 abd nt nd pos bs Current Medications Acetaminophen (Tylenol -) 650 mg NR Q4H PRN PRN Reason: PAIN 1-3 Last Admin: 05/26/18 21:35 Dose: 650 mg Acetylcysteine (Mucomyst 20 Oral / Inh Use Only*) 200 mg NEB RQID [facility] Last Admin: 05/26/18 19:55 Dose: 200 mg Albuterol Sulfate (Ventolin 0.5% -) 1 amp NEB RQID [facility] Last Admin: 05/26/18 19:55 Dose: 1 amp Albuterol Sulfate (Ventolin 0.042trength) -) 1 amp NEB Q4H PRN PRN Reason: SHORT OF BREATH/WHEEZING Bisacodyl (Dulcolax Suppository -) 10 mg RC DAILY [facility] Last Admin: 05/26/18 10:39 Dose: Not Given Budesonide/Formoterol Fumarate (Symbicort 80/4.5mcg -) 2 puff IH BID [facility] Last Admin: 05/26/18 21:36 Dose: Not Given Diazepam (Valium -) 5 mg GT TID [facility] Last Admin: 05/27/18 05:20 Dose: Not Given Docusate Sodium (Colace Liquid -) 300 mg GT DAILY [facility] Last Admin: 05/26/18 10:39 Dose: 300 mg Heparin Sodium (Porcine) (Heparin -) 5,000 unit SQ TID [facility] Last Admin: 05/27/18 05:23 Dose: 5,000 unit Meropenem 1 gm/ Dextrose 100 mls @ 200 mls/hr IVPB Q8H-IV [facility] Last Admin: 05/27/18 01:34 Dose: 200 mls/hr Amino Acids (Clinimix -) 1,000 mls @ 75 mls/hr IV Q13H [facility] Last Admin: 05/27/18 04:34 Dose: 75 mls/hr Vancomycin HCl 1,250 mg/ (Dextrose) 250 mls @ 166.667 mls/hr IVPB BID@0200, 1400 [facility]; Protocol Last Admin: 05/27/18 01:34 Dose: 166.667 mls/hr Metoclopramide HCl (Reglan Oral Solution -) 10 mg GT BID [facility] Last Admin: 05/26/18 21:36 Dose: 10 mg Metoprolol Tartrate (Lopressor Injection -) 5 mg IVPUSH Q4H PRN PRN Reason: HYPERTENSION Last Admin: 05/17/18 18:00 Dose: 5 mg Polyethylene Glycol (Miralax (For Daily Use) -) 17 gm GT DAILY [facility] Last Admin: 05/26/18 11:33 Dose: Not Given Ranitidine HCl (Zantac Oral Solution -) 150 mg GT BID [facility] Last Admin: 05/26/18 21:37 Dose: 150 mg Senna (Senna -) 2 tab PO HS [facility] Last Admin: 05/26/18 21:36 Dose: 2 tab ecg: sinus tach, nl intervals, irbbb echo 04/2018: tds; nl lv/rv, mod tr, nl rvsp ct chest: rul mass/fluid collection a/p: 62 m hx muscular dystonia, peg, [place] resident, sent from [place] for abnl cxr/ pna. pna, lung abscess: -abx per ID sinus tachy: -echo and ecg unremarkable -tele showed sinus tach, no arrhythmias - no longer on monitoring - sinus tachy likely secondary to underlying infection, no specific tx for HR needed, HR stable
--- NOTE | 2018-05-27 11:50 | PN ---
Progress Note, Physician History of Present Illness: pulmonary lethargic on 100% nrbm - Current Medication List Current Medications: Active Medications Acetaminophen (Tylenol -) 650 mg NR Q4H PRN PRN Reason: PAIN 1-3 Last Admin: 05/26/18 21:35 Dose: 650 mg Acetylcysteine (Mucomyst 20 Oral / Inh Use Only*) 200 mg NEB RQID [facility] Last Admin: 05/26/18 19:55 Dose: 200 mg Albuterol Sulfate (Ventolin 0.5% -) 1 amp NEB RQID [facility] Last Admin: 05/26/18 19:55 Dose: 1 amp Albuterol Sulfate (Ventolin 0.042trength) -) 1 amp NEB Q4H PRN PRN Reason: SHORT OF BREATH/WHEEZING Bisacodyl (Dulcolax Suppository -) 10 mg RC DAILY [facility] Last Admin: 05/26/18 10:39 Dose: Not Given Budesonide/Formoterol Fumarate (Symbicort 80/4.5mcg -) 2 puff IH BID [facility] Last Admin: 05/26/18 21:36 Dose: Not Given Diazepam (Valium -) 5 mg GT TID [facility] Last Admin: 05/27/18 05:20 Dose: Not Given Docusate Sodium (Colace Liquid -) 300 mg GT DAILY [facility] Last Admin: 05/26/18 10:39 Dose: 300 mg Heparin Sodium (Porcine) (Heparin -) 5,000 unit SQ TID [facility] Last Admin: 05/27/18 05:23 Dose: 5,000 unit Meropenem 1 gm/ Dextrose 100 mls @ 200 mls/hr IVPB Q8H-IV [facility] Last Admin: 05/27/18 01:34 Dose: 200 mls/hr Amino Acids (Clinimix -) 1,000 mls @ 75 mls/hr IV Q13H [facility] Last Admin: 05/27/18 04:34 Dose: 75 mls/hr Vancomycin HCl 1,250 mg/ (Dextrose) 250 mls @ 166.667 mls/hr IVPB BID@0200, 1400 [facility]; Protocol Last Admin: 05/27/18 01:34 Dose: 166.667 mls/hr Metoclopramide HCl (Reglan Oral Solution -) 10 mg GT BID [facility] Last Admin: 05/26/18 21:36 Dose: 10 mg Metoprolol Tartrate (Lopressor Injection -) 5 mg IVPUSH Q4H PRN PRN Reason: HYPERTENSION Last Admin: 05/17/18 18:00 Dose: 5 mg Polyethylene Glycol (Miralax (For Daily Use) -) 17 gm GT DAILY [facility] Last Admin: 05/26/18 11:33 Dose: Not Given Ranitidine HCl (Zantac Oral Solution -) 150 mg GT BID [facility] Last Admin: 05/26/18 21:37 Dose: 150 mg Senna (Senna -) 2 tab PO HS [facility] Last Admin: 05/26/18 21:36 Dose: 2 tab - Objective Vital Signs: Vital Signs Temperature 97.7 F 05/27/18 09:00 Pulse Rate 90 05/27/18 09:00 Respiratory Rate 18 05/27/18 09:00 Blood Pressure 88/54 L 05/27/18 09:00 O2 Sat by Pulse Oximetry (%) 100 05/27/18 09:00 Constitutional: Yes: Cachectic, Other (lethargic) Eyes: Yes: WNL HENT: Yes: WNL Neck: Yes: WNL Cardiovascular: Yes: Regular Rate and Rhythm, S1, S2 Respiratory: Yes: Diminished Gastrointestinal: Yes: Normal Bowel Sounds, Soft Extremities: Yes: WNL Edema: No Labs: CBC, BMP 05/27/18 05:30 05/27/18 05:30 INR, PTT INR 1.23 (0.83-1.09) H 05/20/18 06:00 Problem List - Problems (1) Atelectasis Code(s): J98.11 - ATELECTASIS (2) Acute hypoxemic respiratory failure Code(s): J96.01 - ACUTE RESPIRATORY FAILURE WITH HYPOXIA Assessment/Plan (1) Lung abscess Code(s): J85.2 - ABSCESS OF LUNG WITHOUT PNEUMONIA Qualifiers: Pulmonary abscess pneumonia presence: without pneumonia Laterality: left Lung location: upper lobe of lung Qualified Code(s): J85.2 - Abscess of lung without pneumonia (2) Aspiration of formula Code(s): P24.30 - ASPIRAT OF MILK AND REGURGITATED FOOD W/O RESP SYMP (3) COPD (chronic obstructive pulmonary disease) Code(s): J44.9 - CHRONIC OBSTRUCTIVE PULMONARY DISEASE, UNSPECIFIED Qualifiers: COPD type: COPD with acute exacerbation Qualified Code(s): J44.1 - Chronic obstructive pulmonary disease with (acute) exacerbation (4) Cavitary lesion of lung Code(s): J98.4 - OTHER DISORDERS OF LUNG (5) Dysphagia Code(s): R13.10 - DYSPHAGIA, UNSPECIFIED (6) Dystonia Code(s): G24.9 - DYSTONIA, UNSPECIFIED (7) Empyema lung Code(s): J86.9 - PYOTHORAX WITHOUT FISTULA (8) GERD (gastroesophageal reflux disease) Code(s): K21.9 - GASTRO-ESOPHAGEAL REFLUX DISEASE WITHOUT ESOPHAGITIS (9) HTN (hypertension) Code(s): I10 - ESSENTIAL (PRIMARY) HYPERTENSION Qualifiers: (10) Hypoxemia Code(s): R09.02 - HYPOXEMIA (11) Lung mass Code(s): R91.8 - OTHER NONSPECIFIC ABNORMAL FINDING OF LUNG FIELD (12) Neurogenic bladder Code(s): N31.9 - NEUROMUSCULAR DYSFUNCTION OF BLADDER, UNSPECIFIED (13) Pneumonia Code(s): J18.9 - PNEUMONIA, UNSPECIFIED ORGANISM Qualifiers: (14) Protein-calorie malnutrition, severe Code(s): E43 - UNSPECIFIED SEVERE PROTEIN-CALORIE MALNUTRITION (15) Sinus tachycardia Code(s): R00.0 - TACHYCARDIA, UNSPECIFIED (16) Sepsis Code(s): A41.9 - SEPSIS, UNSPECIFIED ORGANISM Assessment/Plan ACUTE HYPOXEMIC RESPIRATORY FAILURE DYSTONIA LUNG ABSCESS LEFT LUNG ATELECTASIS LIKELY MUCUS PLUG RECURRENT ASPIRATION Aspiration precautions 100% NRBM mucomyst chest pt,suctioning f/u chest x-rays ABX per ID BD TX PRN IVF pain meds Morphine prn Comfort care DR MURDOCK
--- NOTE | 2018-05-27 12:02 | PN ---
Teaching Attending Note Name of Resident: Yarely Falcon ATTENDING PHYSICIAN STATEMENT I saw and evaluated the patient. I reviewed the resident's note and discussed the case with the resident. I agree with the resident's findings and plan as documented with exceptions below. SUBJECTIVE: Patient seen and examined. tachypneic, minimal responses. OBJECTIVE: Vital Signs Period Temp Pulse Resp BP Sys/Marroquin Pulse Ox Last 24 Hr 97.4 F-100.6 F 85-130 18-20 88-112/53-77 100-100 Intake & Output 05/24/18 05/25/18 05/26/18 05/27/18 23:59 23:59 23:59 23:59 Intake Total 0 1915 2550 350 Output Total 1800 3100 2350 2300 Balance -1800 -1185 200 -1950 General: tachypneic, on 100% NRB, cachectic in bed Chest: poor effort, scattered rales Abdomen:Soft, scaphoid, PEG in place Extremities: no edema, cachectic Home Medications Medication Instructions Recorded Acetaminophen [Tylenol] 325 mg GT QID 09/11/17 Albuterol 0.083% Nebulizer Jojo 1 neb NEB Q6H 09/11/17 [Ventolin 0.083% Nebulizer Soln -] Bisacodyl [Biscolax] 10 mg RC DAILY 09/11/17 Diazepam [Valium] 5 mg GT TID 09/11/17 Docusate Liquid [Colace Liquid -] 300 mg GT TID 09/11/17 Lps 16-100 Liquid 30 ml GT BID 09/11/17 Methenamine/Sodium Salicylate 1 each GT DAILY 09/11/17 [Cystex Plus Tablet] Metoclopramide Oral Soln [Reglan 10 mg GT BID 09/11/17 Oral Solution -] Polyethylene Glycol 3350 [Clearlax] 17 gm GT DAILY 09/11/17 Ranitidine [Zantac -] 150 mg GT BID 09/11/17 Sennosides [Senna] 17.2 mg GT HS 09/11/17 Tramadol HCl 50 mg GT TID 09/11/17 Acetaminophen 650 mg PO QID PRN 05/14/18 Metoclopramide Oral Soln [Reglan 10 ml GT TID 05/14/18 Oral Solution -] Moxifloxacin HCl [Vigamox 0.5% -] 1 drop OD TID 05/14/18 Fred/Polymyx B Sulf/Dexameth 1 drop OD DAILY 05/14/18 [Maxitrol Eye Drops -] Prednisolone 1% Ophthalmic [Pred 1 drop OD TID 05/14/18 Forte 1% -] Active Medications Acetaminophen (Tylenol -) 650 mg NR Q4H PRN PRN Reason: PAIN 1-3 Last Admin: 05/26/18 21:35 Dose: 650 mg Acetylcysteine (Mucomyst 20 Oral / Inh Use Only*) 200 mg NEB RQID [facility] Last Admin: 05/26/18 19:55 Dose: 200 mg Albuterol Sulfate (Ventolin 0.5% -) 1 amp NEB RQID [facility] Last Admin: 05/26/18 19:55 Dose: 1 amp Albuterol Sulfate (Ventolin 0.042trength) -) 1 amp NEB Q4H PRN PRN Reason: SHORT OF BREATH/WHEEZING Bisacodyl (Dulcolax Suppository -) 10 mg RC DAILY [facility] Last Admin: 05/26/18 10:39 Dose: Not Given Budesonide/Formoterol Fumarate (Symbicort 80/4.5mcg -) 2 puff IH BID [facility] Last Admin: 05/26/18 21:36 Dose: Not Given Diazepam (Valium -) 5 mg GT TID [facility] Last Admin: 05/27/18 05:20 Dose: Not Given Docusate Sodium (Colace Liquid -) 300 mg GT DAILY [facility] Last Admin: 05/26/18 10:39 Dose: 300 mg Heparin Sodium (Porcine) (Heparin -) 5,000 unit SQ TID [facility] Last Admin: 05/27/18 05:23 Dose: 5,000 unit Meropenem 1 gm/ Dextrose 100 mls @ 200 mls/hr IVPB Q8H-IV [facility] Last Admin: 05/27/18 01:34 Dose: 200 mls/hr Amino Acids (Clinimix -) 1,000 mls @ 75 mls/hr IV Q13H [facility] Last Admin: 05/27/18 04:34 Dose: 75 mls/hr Vancomycin HCl 1,250 mg/ (Dextrose) 250 mls @ 166.667 mls/hr IVPB BID@0200, 1400 [facility]; Protocol Last Admin: 05/27/18 01:34 Dose: 166.667 mls/hr Metoclopramide HCl (Reglan Oral Solution -) 10 mg GT BID [facility] Last Admin: 05/26/18 21:36 Dose: 10 mg Metoprolol Tartrate (Lopressor Injection -) 5 mg IVPUSH Q4H PRN PRN Reason: HYPERTENSION Last Admin: 05/17/18 18:00 Dose: 5 mg Polyethylene Glycol (Miralax (For Daily Use) -) 17 gm GT DAILY [facility] Last Admin: 05/26/18 11:33 Dose: Not Given Ranitidine HCl (Zantac Oral Solution -) 150 mg GT BID [facility] Last Admin: 05/26/18 21:37 Dose: 150 mg Senna (Senna -) 2 tab PO HS [facility] Last Admin: 05/26/18 21:36 Dose: 2 tab Laboratory Results - last 24 hr 05/26/18 05/27/18 05/27/18 16:27 05:29 05:30 WBC 18.4 H RBC 2.64 L Hgb 7.9 L Hct 25.4 L MCV 96.2 H MCH 30.0 MCHC 31.1 L RDW 14.7 Plt Count 304 MPV 8.0 Sodium Potassium Chloride Carbon Dioxide Anion Gap BUN Creatinine Creat Clearance w eGFR POC Glucometer 135 150 Random Glucose Calcium Total Bilirubin AST ALT Alkaline Phosphatase Total Protein Albumin 05/27/18 05:30 WBC RBC Hgb Hct MCV MCH MCHC RDW Plt Count MPV Sodium 139 Potassium 3.9 Chloride 93 L Carbon Dioxide 42 H Anion Gap 4 L BUN 16 Creatinine 0.2 L Creat Clearance w eGFR > 60 POC Glucometer Random Glucose 122 H Calcium 8.0 L Total Bilirubin 0.4 AST 42 H ALT 27 Alkaline Phosphatase 211 H Total Protein 5.6 L Albumin 1.4 L ASSESSMENT AND PLAN: 62 yom with pMHx of muscular dystonia, peg, sent from [place] with abnormal CXR/PNA -Acute hypoxemic respiratory failure -Lung abscess, suspect from recurrent aspiration -Left lung collapse, suspect related to mucous plugging -Aspiration -Muscular dystonia -Hypokalemia -Hypophosphatemia -Hypotension Plan: Extensive discussion held with patient and brother David on 05/23. Explained overall poor prognosis and unlikely patient will survive this infection. patient wanted to continue with supportive measures and declined CPR/ intubation. However, progressive decline,unable to taper off NRB (hypoxic to 70s). Given high aspiration risk and tenuous respiratory status, unable to resume tube feeds with progressive poor nutritional status. Discussed option for comfort measures again with patient, patient nodding to the same. Brother informed, to come in at 1:30, to co-ordinate with palliative and readdress goals of care given change in patient's wishes. Continue supportive measures, frequent suctioning/Mucomyst QID. Vancomycin d/manolo. meropenem per ID. WBC high, suspect ongoing recurrent aspiration. Per discussion with Dr. Joe, not candidate for IR guided drainage, given already draining in tracheobronchial tree. Per discussion with dr. Garcia, not a candidate for bronchoscopy given high risk given tenuous respiratory failure. Not a candidate for bipap given high aspiration risk and lack of effort/co- operation Clinimix IV Plan discussed with nursing in detail, all questions answered
--- NOTE | 2018-05-27 14:03 | PN ---
Progress Note, Physician History of Present Illness: family meeting today will decide on further plan very weak - Current Medication List Current Medications: Active Medications Acetaminophen (Tylenol -) 650 mg NR Q4H PRN PRN Reason: PAIN 1-3 Last Admin: 05/26/18 21:35 Dose: 650 mg Acetylcysteine (Mucomyst 20 Oral / Inh Use Only*) 200 mg NEB RQID [facility] Last Admin: 05/27/18 12:47 Dose: 200 mg Albuterol Sulfate (Ventolin 0.5% -) 1 amp NEB RQID [facility] Last Admin: 05/27/18 12:49 Dose: 1 amp Albuterol Sulfate (Ventolin 0.042trength) -) 1 amp NEB Q4H PRN PRN Reason: SHORT OF BREATH/WHEEZING Bisacodyl (Dulcolax Suppository -) 10 mg RC DAILY [facility] Last Admin: 05/27/18 10:35 Dose: Not Given Budesonide/Formoterol Fumarate (Symbicort 80/4.5mcg -) 2 puff IH BID [facility] Last Admin: 05/27/18 10:20 Dose: Not Given Diazepam (Valium -) 5 mg GT TID [facility] Last Admin: 05/27/18 05:20 Dose: Not Given Docusate Sodium (Colace Liquid -) 300 mg GT DAILY [facility] Last Admin: 05/27/18 10:30 Dose: 300 mg Heparin Sodium (Porcine) (Heparin -) 5,000 unit SQ TID [facility] Last Admin: 05/27/18 05:23 Dose: 5,000 unit Meropenem 1 gm/ Dextrose 100 mls @ 200 mls/hr IVPB Q8H-IV [facility] Last Admin: 05/27/18 10:30 Dose: 200 mls/hr Amino Acids (Clinimix -) 1,000 mls @ 75 mls/hr IV Q13H [facility] Last Admin: 05/27/18 04:34 Dose: 75 mls/hr Vancomycin HCl 1,250 mg/ (Dextrose) 250 mls @ 166.667 mls/hr IVPB BID@0200, 1400 [facility]; Protocol Last Admin: 05/27/18 01:34 Dose: 166.667 mls/hr Metoclopramide HCl (Reglan Oral Solution -) 10 mg GT BID [facility] Last Admin: 05/27/18 10:25 Dose: 10 mg Metoprolol Tartrate (Lopressor Injection -) 5 mg IVPUSH Q4H PRN PRN Reason: HYPERTENSION Last Admin: 05/17/18 18:00 Dose: 5 mg Polyethylene Glycol (Miralax (For Daily Use) -) 17 gm GT DAILY [facility] Last Admin: 05/27/18 10:15 Dose: 17 grams Ranitidine HCl (Zantac Oral Solution -) 150 mg GT BID [facility] Last Admin: 05/27/18 10:05 Dose: 150 mg Senna (Senna -) 2 tab PO HS [facility] Last Admin: 05/26/18 21:36 Dose: 2 tab - Objective Vital Signs: Vital Signs Temperature 97.7 F 05/27/18 09:00 Pulse Rate 90 05/27/18 09:00 Respiratory Rate 18 05/27/18 09:00 Blood Pressure 88/54 L 05/27/18 09:00 O2 Sat by Pulse Oximetry (%) 100 05/27/18 09:00 Constitutional: Yes: Other (failure to thrive) Cardiovascular: Yes: Regular Rate and Rhythm Respiratory: Yes: Regular, Other (on vent mask) Gastrointestinal: Yes: Normal Bowel Sounds, Soft, Other (peg) Musculoskeletal: Yes: WNL Extremities: Yes: Other Neurological: Yes: Alert (barely opens eyes) Labs: CBC, BMP 05/27/18 05:30 05/27/18 05:30 INR, PTT INR 1.23 (0.83-1.09) H 05/20/18 06:00 Assessment/Plan Problem List - Problems (1) Cavitary lesion of lung Code(s): J98.4 - OTHER DISORDERS OF LUNG (2) COPD (chronic obstructive pulmonary disease) Code(s): J44.9 - CHRONIC OBSTRUCTIVE PULMONARY DISEASE, UNSPECIFIED Qualifiers: COPD type: COPD with acute exacerbation Qualified Code(s): J44.1 - Chronic obstructive pulmonary disease with (acute) exacerbation (3) Constipation Code(s): K59.00 - CONSTIPATION, UNSPECIFIED Qualifiers: Constipation type: unspecified constipation type Qualified Code(s): K59.00 - Constipation, unspecified (4) Dysphagia Code(s): R13.10 - DYSPHAGIA, UNSPECIFIED (5) GERD (gastroesophageal reflux disease) Code(s): K21.9 - GASTRO-ESOPHAGEAL REFLUX DISEASE WITHOUT ESOPHAGITIS (6) Protein-calorie malnutrition, severe Code(s): E43 - UNSPECIFIED SEVERE PROTEIN-CALORIE MALNUTRITION plan abx continue current mgmt nutrition support resp support rest as per the team await for the final family decision
[2018-05-27] MEDS ORDERED: LORazepam 2 MG/ML SDV VIAL IVPUSH PRN (14:12)
[2018-05-27] MEDS: MORPHINE SULFATE 2 MG/ML VIAL IVPUSH PRN (16:54)
[2018-05-27] MEDS: SENNOSIDES 8.6MG TABLET (FP) PO SCH (21:41)
[2018-05-28] MEDS: diazePAM 5 MG TABLET GT SCH (05:36)
[2018-05-28] MEDS: ALBUTEROL SO4 0.5 % INH SOLN 2.5 MG/0.5 ML VIAL.NEB. NEB SCH ×2 (07:45→11:25)
[2018-05-28] MEDS: ACETYLCYSTEINE 20% 200MG/ML 4 ML VIAL *FOR ORAL / INH USE ONLY NEB SCH ×2 (07:45→11:25)
[2018-05-28 08:09] LABS: MAGNESIUM 2.4 mg/dL (1.8-2.4); PHOSPHOROUS 3.1 mg/dL (2.5-4.9)
[2018-05-28] MEDS: BUDESONIDE/FORMETEROL FUMARATE 80/4.5 mcg INHALER IH SCH (09:25)
[2018-05-28] MEDS: DOCUSATE NA 100 MG/10 ML UNIT-DOSE CUPS GT SCH (09:25)
[2018-05-28] MEDS: POLYETHYLENE GLYCOL 3350 119 GM BTL GT SCH (09:25)
[2018-05-28] MEDS: MORPHINE SULFATE 2 MG/ML VIAL IVPUSH PRN (09:26)
--- NOTE | 2018-05-28 15:38 | PN ---
Teaching Attending Note Name of Resident: Yarely Falcon ATTENDING PHYSICIAN STATEMENT I saw and evaluated the patient. I reviewed the resident's note and discussed the case with the resident. I agree with the resident's findings and plan as documented. SUBJECTIVE: unable to obtain OBJECTIVE: Last Vital Signs Temp Pulse Resp BP Pulse Ox 36.5 C 85 18 84/52 L 96 05/28/18 09:42 05/28/18 09:42 05/28/18 09:42 05/28/18 09:42 05/27/18 20:40 Gen: lethargic, thin Pulm: shallow ASSESSMENT AND PLAN: -placed on comfort measures only -will stop unnecessary medications -place on morphing gtt -prn ativan and haldol for agitation -scopolamine patch Problem List - Problems (1) Lung abscess Code(s): J85.2 - ABSCESS OF LUNG WITHOUT PNEUMONIA Qualifiers: Pulmonary abscess pneumonia presence: without pneumonia Laterality: left Lung location: upper lobe of lung Qualified Code(s): J85.2 - Abscess of lung without pneumonia (2) Severe sepsis Code(s): A41.9 - SEPSIS, UNSPECIFIED ORGANISM; R65.20 - SEVERE SEPSIS WITHOUT SEPTIC SHOCK (3) COPD (chronic obstructive pulmonary disease) Code(s): J44.9 - CHRONIC OBSTRUCTIVE PULMONARY DISEASE, UNSPECIFIED Qualifiers: COPD type: COPD with acute exacerbation Qualified Code(s): J44.1 - Chronic obstructive pulmonary disease with (acute) exacerbation (4) Constipation Code(s): K59.00 - CONSTIPATION, UNSPECIFIED Qualifiers: Constipation type: unspecified constipation type Qualified Code(s): K59.00 - Constipation, unspecified (5) Dysphagia Code(s): R13.10 - DYSPHAGIA, UNSPECIFIED (6) GERD (gastroesophageal reflux disease) Code(s): K21.9 - GASTRO-ESOPHAGEAL REFLUX DISEASE WITHOUT ESOPHAGITIS (7) Protein-calorie malnutrition, severe Code(s): E43 - UNSPECIFIED SEVERE PROTEIN-CALORIE MALNUTRITION
--- NOTE | 2018-05-28 15:39 | PN ---
Physical Exam: SUBJECTIVE: Patient seen and examined at bed side. On Comfort measures. Patient looks comfortable. OBJECTIVE: Vital Signs Period Temp Pulse Resp BP Sys/Marroquin Pulse Ox Last 24 Hr 97.7 F-99.3 F 85-107 18-20 82-95/52-64 96 GENERAL: Middle aged male, cachectic, lethargic. ENT:Dry mucus membranes. NECK: JVD + LUNGS: Coarse breath sounds +. Using assessory muscles. HEART: Tachycardic, Regular rate and rhythm, S1, S2 without murmur. ABDOMEN: Suprapubic tube in place, PEG, Soft, nontender, no organomegaly. EXTREMITIES: 2+ pulses, warm, well-perfused, no edema. NEUROLOGICAL: No facial droop. non verbal Laboratory Results - last 24 hr 05/28/18 05:30 Phosphorus 3.1 Magnesium 2.4 Active Medications Generic Name Dose Route Start Last Admin Trade Name Freq PRN Reason Stop Dose Admin Acetaminophen 650 mg 05/14/18 17:04 05/26/18 21:35 Tylenol - NR 650 mg Q4H PRN Administration PAIN 1-3 Acetylcysteine 200 mg 05/21/18 12:00 05/28/18 11:25 Mucomyst 20 Oral / Inh Use Only* NEB 200 mg RQID [facility] Administration Albuterol Sulfate 1 amp 05/21/18 12:00 05/28/18 11:25 Ventolin 0.5% - NEB 1 amp RQID [facility] Administration Albuterol Sulfate 1 amp 05/26/18 13:11 Ventolin 0.042trength) - NEB Q4H PRN SHORT OF BREATH/WHEEZING Budesonide/Formoterol Fumarate 2 puff 05/15/18 22:00 05/28/18 09:25 Symbicort 80/4.5mcg - IH Not Given BID [facility] Diazepam 5 mg 05/14/18 22:00 05/28/18 05:36 Valium - GT Not Given TID [facility] Docusate Sodium 300 mg 05/15/18 10:00 05/28/18 09:25 Colace Liquid - GT Not Given DAILY [facility] Morphine Sulfate 100 mg/ 100 mls @ 1 mls/hr 05/28/18 14:15 Sodium Chloride IVPB TITR [facility] Protocol 1 MG/HR Lorazepam 1 mg 05/27/18 14:12 Ativan Injection - IVPUSH Q6H PRN ANXIETY Morphine Sulfate 2 mg 05/27/18 14:11 05/28/18 09:26 Morphine Sulfate IVPUSH 2 mg Q3H PRN Administration PAIN LEVEL 6-10 Polyethylene Glycol 17 gm 05/15/18 10:00 05/28/18 09:25 Miralax (For Daily Use) - GT Not Given DAILY [facility] Senna 2 tab 05/14/18 22:00 05/27/18 21:41 Senna - PO Not Given HS [facility] ASSESSMENT/PLAN: Patient is a 61-year old male, with history of bronchiectasis, neurogenic bladder with a suprapubic tube, asthma,COPD, GERD, HTN, carpal tunnel, hemoptysis, dysphagsia requiring a peg tub for feed. dystonia for 32 yrs, bronchiectasis was sent from [facility] for evaluation of abnormal CXR. --Aspiration pneumonia and lung abscess-not improving --Lung mass necrotizing mass vs abscess vs malignancy with collapsed left lung --UTI (E.faecalis) --Sinus tachycardia --Dysphagia: PEG tube in place --Normocytic anemia --Constipation Discussed with the patients brother 05/27/18 , patient decided to be in comfort care. No lab draws, no imaging, no IV antibiotics. Continue Oxygen PRN, Morphine drip, Morphine PRN, Ativan PRN Problem List - Problems (1) Lung abscess Code(s): J85.2 - ABSCESS OF LUNG WITHOUT PNEUMONIA Qualifiers: Pulmonary abscess pneumonia presence: without pneumonia Laterality: left Lung location: upper lobe of lung Qualified Code(s): J85.2 - Abscess of lung without pneumonia (2) Sepsis Code(s): A41.9 - SEPSIS, UNSPECIFIED ORGANISM (3) Aspiration of formula Code(s): P24.30 - ASPIRAT OF MILK AND REGURGITATED FOOD W/O RESP SYMP (4) Asthma Code(s): J45.909 - UNSPECIFIED ASTHMA, UNCOMPLICATED (5) COPD (chronic obstructive pulmonary disease) Code(s): J44.9 - CHRONIC OBSTRUCTIVE PULMONARY DISEASE, UNSPECIFIED Qualifiers: COPD type: COPD with acute exacerbation Qualified Code(s): J44.1 - Chronic obstructive pulmonary disease with (acute) exacerbation (6) Cavitary lesion of lung Code(s): J98.4 - OTHER DISORDERS OF LUNG Visit type - Emergency Visit Emergency Visit: Yes ED Registration Date: 05/15/18 Care time: The patient presented to the Emergency Department on the above date and was hospitalized for further evaluation of their emergent condition. - New Patient This patient is new to me today: No - Critical Care Critical Care patient: No - Discharge Referral Referred to [facility] No
[2018-05-28] MEDS ORDERED: HALOPERIDOL LACTATE 5 MG/ML IM PRN (16:00)
[2018-05-28] MEDS ORDERED: SCOPOLAMINE HYDROBROMIDE 1 PATCH PATCH.TD72 TD SCH (16:00)
[2018-05-28] MEDS: MORPHINE 100 MG in SODIUM CHLORIDE 98 ML IVPB SCH (18:32)
--- NOTE | 2018-05-29 14:21 | PN ---
Physical Exam: SUBJECTIVE: Patient seen and examined at bed side this morning. On Morphine drip. Shallow breathing. OBJECTIVE: Vital Signs Period Temp Pulse Resp BP Sys/Marroquin Pulse Ox Last 24 Hr 97.1 F-97.3 F 83-94 20-20 78-91/52-53 100-100 GENERAL: The patient is awake, eyes opened, not responding, shallow breathing Chest: B/L coarse breath sounds Abdomen: Soft, non tender Ext: No edema Active Medications Generic Name Dose Route Start Last Admin Trade Name Freq PRN Reason Stop Dose Admin Acetaminophen 650 mg 05/14/18 17:04 05/26/18 21:35 Tylenol - NR 650 mg Q4H PRN Administration PAIN 1-3 Albuterol Sulfate 1 amp 05/26/18 13:11 Ventolin 0.042trength) - NEB Q4H PRN SHORT OF BREATH/WHEEZING Haloperidol 2 mg 05/28/18 16:00 Haldol Injection (Fast Acting) - IM Q4H PRN AGITATION Morphine Sulfate 100 mg/ 100 mls @ 1 mls/hr 05/28/18 14:15 05/29/18 03:31 Sodium Chloride IVPB 2 mg/hr TITR ESVIN 2 mls/hr Titration Protocol 1 MG/HR Lorazepam 1 mg 05/27/18 14:12 Ativan Injection - IVPUSH Q6H PRN ANXIETY Morphine Sulfate 2 mg 05/27/18 14:11 05/28/18 09:26 Morphine Sulfate IVPUSH 2 mg Q3H PRN Administration PAIN LEVEL 6-10 Scopolamine HBr 1 patch 05/28/18 16:00 05/28/18 18:34 Transderm-Scop - TD 1 patch Q72H ESVIN Administration ASSESSMENT/PLAN: Patient is a 61-year old male, with history of bronchiectasis, neurogenic bladder with a suprapubic tube, asthma,COPD, GERD, HTN, carpal tunnel, hemoptysis, dysphagsia requiring a peg tub for feed. dystonia for 32 yrs, bronchiectasis was sent from [facility] for evaluation of abnormal CXR. --Aspiration pneumonia and lung abscess-not improving --Lung mass necrotizing mass vs abscess vs malignancy with collapsed left lung --UTI (E.faecalis) --Sinus tachycardia --Dysphagia: PEG tube in place --Normocytic anemia --Constipation Continue Oxygen PRN, Morphine drip, Morphine PRN, Ativan PRN Discussed with the patients brother 05/27/18 , patient decided to be in comfort care. No lab draws, no imaging, no IV antibiotics. Problem List - Problems (1) Lung abscess Code(s): J85.2 - ABSCESS OF LUNG WITHOUT PNEUMONIA Qualifiers: Pulmonary abscess pneumonia presence: without pneumonia Laterality: left Lung location: upper lobe of lung Qualified Code(s): J85.2 - Abscess of lung without pneumonia (2) Sepsis Code(s): A41.9 - SEPSIS, UNSPECIFIED ORGANISM (3) Aspiration of formula Code(s): P24.30 - ASPIRAT OF MILK AND REGURGITATED FOOD W/O RESP SYMP (4) Asthma Code(s): J45.909 - UNSPECIFIED ASTHMA, UNCOMPLICATED (5) COPD (chronic obstructive pulmonary disease) Code(s): J44.9 - CHRONIC OBSTRUCTIVE PULMONARY DISEASE, UNSPECIFIED Qualifiers: COPD type: COPD with acute exacerbation Qualified Code(s): J44.1 - Chronic obstructive pulmonary disease with (acute) exacerbation (6) Cavitary lesion of lung Code(s): J98.4 - OTHER DISORDERS OF LUNG Visit type - Emergency Visit Emergency Visit: Yes ED Registration Date: 05/15/18 Care time: The patient presented to the Emergency Department on the above date and was hospitalized for further evaluation of their emergent condition. - New Patient This patient is new to me today: No - Critical Care Critical Care patient: No - Discharge Referral Referred to [facility] No
--- NOTE | 2018-05-29 17:00 | PN ---
Teaching Attending Note Name of Resident: Yarely Falcon ATTENDING PHYSICIAN STATEMENT I saw and evaluated the patient. I reviewed the resident's note and discussed the case with the resident. I agree with the resident's findings and plan as documented. SUBJECTIVE: obtunded OBJECTIVE: Last Vital Signs Temp Pulse Resp BP Pulse Ox 36.6 C 93 H 20 61/42 L 100 05/29/18 15:02 05/29/18 15:02 05/29/18 15:02 05/29/18 15:02 05/29/18 11:22 Gen: obtunded, appears comfortable Pulm: shallow ASSESSMENT AND PLAN: -continue morphine gtt, increase as needed -continue prn ativan and haldol -continue scopolamine patch Problem List - Problems (1) Lung abscess Code(s): J85.2 - ABSCESS OF LUNG WITHOUT PNEUMONIA Qualifiers: Pulmonary abscess pneumonia presence: without pneumonia Laterality: left Lung location: upper lobe of lung Qualified Code(s): J85.2 - Abscess of lung without pneumonia (2) Severe sepsis Code(s): A41.9 - SEPSIS, UNSPECIFIED ORGANISM; R65.20 - SEVERE SEPSIS WITHOUT SEPTIC SHOCK (3) COPD (chronic obstructive pulmonary disease) Code(s): J44.9 - CHRONIC OBSTRUCTIVE PULMONARY DISEASE, UNSPECIFIED Qualifiers: COPD type: COPD with acute exacerbation Qualified Code(s): J44.1 - Chronic obstructive pulmonary disease with (acute) exacerbation (4) Constipation Code(s): K59.00 - CONSTIPATION, UNSPECIFIED Qualifiers: Constipation type: unspecified constipation type Qualified Code(s): K59.00 - Constipation, unspecified (5) Dysphagia Code(s): R13.10 - DYSPHAGIA, UNSPECIFIED (6) GERD (gastroesophageal reflux disease) Code(s): K21.9 - GASTRO-ESOPHAGEAL REFLUX DISEASE WITHOUT ESOPHAGITIS (7) Protein-calorie malnutrition, severe Code(s): E43 - UNSPECIFIED SEVERE PROTEIN-CALORIE MALNUTRITION
[2018-05-29 21:17] VITALS: TEMP 97.5
--- NOTE | 2018-05-30 15:53 | PN ---
Physical Exam: SUBJECTIVE: Patient seen and examined at bed side this morning. On Morphine drip. Looks comfortable. OBJECTIVE: Vital Signs Period Temp Pulse Resp BP Sys/Marroquin Pulse Ox Last 24 Hr 97.5 F 70-94 8-20 39-52/11-30 100 GENERAL: The patient is awake, eyes opened, not responding, shallow breathing Chest: B/L coarse breath sounds Abdomen: Soft, non tender Ext: No edema Active Medications Generic Name Dose Route Start Last Admin Trade Name Freq PRN Reason Stop Dose Admin Acetaminophen 650 mg 05/14/18 17:04 05/26/18 21:35 Tylenol - NR 650 mg Q4H PRN Administration PAIN 1-3 Albuterol Sulfate 1 amp 05/26/18 13:11 Ventolin 0.042trength) - NEB Q4H PRN SHORT OF BREATH/WHEEZING Haloperidol 2 mg 05/28/18 16:00 Haldol Injection (Fast Acting) - IM Q4H PRN AGITATION Morphine Sulfate 100 mg/ 100 mls @ 1 mls/hr 05/28/18 14:15 05/29/18 03:31 Sodium Chloride IVPB 2 mg/hr TITR ESVIN 2 mls/hr Titration Protocol 1 MG/HR Lorazepam 1 mg 05/27/18 14:12 Ativan Injection - IVPUSH Q6H PRN ANXIETY Scopolamine HBr 1 patch 05/28/18 16:00 05/28/18 18:34 Transderm-Scop - TD 1 patch Q72H ESVIN Administration ASSESSMENT/PLAN: Patient is a 61-year old male, with history of bronchiectasis, neurogenic bladder with a suprapubic tube, asthma,COPD, GERD, HTN, carpal tunnel, hemoptysis, dysphagsia requiring a peg tub for feed. dystonia for 32 yrs, bronchiectasis was sent from [facility] for evaluation of abnormal CXR. --Aspiration pneumonia and lung abscess-not improving --Lung mass necrotizing mass vs abscess vs malignancy with collapsed left lung --UTI (E.faecalis) --Sinus tachycardia --Dysphagia: PEG tube in place --Normocytic anemia --Constipation Continue Oxygen PRN, Morphine drip, Morphine PRN, Ativan PRN Discussed with the patients brother 05/27/18 , patient decided to be in comfort care. No lab draws, no imaging, no IV antibiotics. Problem List - Problems (1) Lung abscess Code(s): J85.2 - ABSCESS OF LUNG WITHOUT PNEUMONIA Qualifiers: Pulmonary abscess pneumonia presence: without pneumonia Laterality: left Lung location: upper lobe of lung Qualified Code(s): J85.2 - Abscess of lung without pneumonia (2) Sepsis Code(s): A41.9 - SEPSIS, UNSPECIFIED ORGANISM (3) Aspiration of formula Code(s): P24.30 - ASPIRAT OF MILK AND REGURGITATED FOOD W/O RESP SYMP (4) Asthma Code(s): J45.909 - UNSPECIFIED ASTHMA, UNCOMPLICATED (5) COPD (chronic obstructive pulmonary disease) Code(s): J44.9 - CHRONIC OBSTRUCTIVE PULMONARY DISEASE, UNSPECIFIED Qualifiers: COPD type: COPD with acute exacerbation Qualified Code(s): J44.1 - Chronic obstructive pulmonary disease with (acute) exacerbation (6) Cavitary lesion of lung Code(s): J98.4 - OTHER DISORDERS OF LUNG Visit type - Emergency Visit Emergency Visit: Yes ED Registration Date: 05/15/18 Care time: The patient presented to the Emergency Department on the above date and was hospitalized for further evaluation of their emergent condition. - New Patient This patient is new to me today: No - Critical Care Critical Care patient: No - Discharge Referral Referred to [facility] No
--- NOTE | 2018-05-30 16:14 | PN ---
Teaching Attending Note Name of Resident: Yarely Falcon ATTENDING PHYSICIAN STATEMENT I saw and evaluated the patient. I reviewed the resident's note and discussed the case with the resident. I agree with the resident's findings and plan as documented. SUBJECTIVE: unable to obtain, obtunded OBJECTIVE: Last Vital Signs Temp Pulse Resp BP Pulse Ox 36.4 C L 70 8 L 39/11 L 100 05/29/18 17:00 05/30/18 15:00 05/30/18 15:00 05/30/18 15:00 05/29/18 21:00 Gen: obtunded Pulm: shallow breathing ASSESSMENT AND PLAN: -continue comfort measures -expect end of life in next 24-48 hours Problem List - Problems (1) Lung abscess Code(s): J85.2 - ABSCESS OF LUNG WITHOUT PNEUMONIA Qualifiers: Pulmonary abscess pneumonia presence: without pneumonia Laterality: left Lung location: upper lobe of lung Qualified Code(s): J85.2 - Abscess of lung without pneumonia (2) Severe sepsis Code(s): A41.9 - SEPSIS, UNSPECIFIED ORGANISM; R65.20 - SEVERE SEPSIS WITHOUT SEPTIC SHOCK (3) COPD (chronic obstructive pulmonary disease) Code(s): J44.9 - CHRONIC OBSTRUCTIVE PULMONARY DISEASE, UNSPECIFIED Qualifiers: COPD type: COPD with acute exacerbation Qualified Code(s): J44.1 - Chronic obstructive pulmonary disease with (acute) exacerbation (4) Constipation Code(s): K59.00 - CONSTIPATION, UNSPECIFIED Qualifiers: Constipation type: unspecified constipation type Qualified Code(s): K59.00 - Constipation, unspecified (5) Dysphagia Code(s): R13.10 - DYSPHAGIA, UNSPECIFIED (6) GERD (gastroesophageal reflux disease) Code(s): K21.9 - GASTRO-ESOPHAGEAL REFLUX DISEASE WITHOUT ESOPHAGITIS (7) Protein-calorie malnutrition, severe Code(s): E43 - UNSPECIFIED SEVERE PROTEIN-CALORIE MALNUTRITION
[2018-05-30] MEDS: MORPHINE 100 MG in SODIUM CHLORIDE 98 ML IVPB SCH (17:03)
--- NOTE | 2018-05-30 21:54 | HOSP ---
Physical Examination Vital Signs: Vital Signs Temperature 97.5 F L 05/29/18 17:00 Pulse Rate 70 05/30/18 15:00 Respiratory Rate 8 L 05/30/18 15:00 Blood Pressure 39/11 L 05/30/18 15:00 O2 Sat by Pulse Oximetry (%) 100 05/29/18 21:00 Labs: CBC, BMP 05/27/18 05:30 05/27/18 05:30 <Froylan Bar - Last Filed: 05/30/18 21:51> Vital Signs: Vital Signs Temperature 97.5 F L 05/29/18 17:00 Pulse Rate 76 05/30/18 20:00 Respiratory Rate 7 L 05/30/18 20:00 Blood Pressure 39/10 L 05/30/18 20:00 O2 Sat by Pulse Oximetry (%) 100 05/29/18 21:00 Labs: CBC, BMP 05/27/18 05:30 05/27/18 05:30 <Easton Fishman - Last Filed: 06/09/18 20:30> Hospitalist Encounter Assessment: Called and informed that patient had . Patient was documented Comfort measures only. Arrived to evaluate the patient. Unresponsive to verbal or painful stimuli No pupillary reflex, no corneal reflexes No breath sounds or heart sounds noted on auscultation for 2 minutes Time of called at 9:27 pm. Family to be notified. <Froylan Bar - Last Filed: 05/30/18 21:51> Outcome: Seen and examined;agree with all the above aside form as edited by me in my own note. Thank you. Was present for all vital parts of encounter; plan discussed with me. Agree with above as documented by the resident. <Easton Fishman - Last Filed: 06/09/18 20:30> Visit type - Emergency Visit Emergency Visit: Yes ED Registration Date: 05/15/18 Care time: The patient presented to the Emergency Department on the above date and was hospitalized for further evaluation of their emergent condition. - New Patient This patient is new to me today: Yes Date on this admission: 05/30/18 - Critical Care Critical Care patient: No <Froylan Bar - Last Filed: 05/30/18 21:51>
[2018-05-31 00:30] VITALS: BP 39/10; PULSE 76
--- NOTE | 2018-07-05 13:20 | EKG ---
Test Reason : Blood Pressure : / mmHG Vent. Rate : 067 BPM Atrial Rate : 067 BPM P-R Int : 164 ms QRS Dur : 070 ms QT Int : 386 ms P-R-T Axes : 043 -28 050 degrees QTc Int : 407 ms POOR DATA QUALITY, INTERPRETATION MAY BE ADVERSELY AFFECTED NORMAL SINUS RHYTHM LOW VOLTAGE QRS POOR R WAVE PROGRESSION LEFTWARD AXIS Confirmed by BYRON RICO MD ([id number]) on 07/05/2018 1:20:02 PM Referred By: SHARMIN PABON Confirmed By:BYRON RICO MD
== END 2018-05-30 23:00 | disposition expired | DRG 177 ==
LOC: JER 11:55 → JERBED 16:56 → J7W 21:45 → OBSVTOIN 05-15 10:46 → J4W 05-15 13:40
PROVIDERS: ADMIT Internal Medicine; ATTEND Internal Medicine
DX: J85.1 Abscess of lung with pneumonia (principal); A41.9 Sepsis, unspecified organism; E43 Unspecified severe protein-calorie malnutrition; J96.01 Acute respiratory failure with hypoxia; J69.0 Pneumonitis due to inhalation of food and vomit; R65.20 Severe sepsis without septic shock; R64 Cachexia; Z68.1 Body mass index [BMI] 19.9 or less, adult; N39.0 Urinary tract infection, site not specified; G24.8 Other dystonia; J98.11 Atelectasis; B95.2 Enterococcus as the cause of diseases classified elsewhere; J98.4 Other disorders of lung; J44.9 Chronic obstructive pulmonary disease, unspecified; E83.39 Other disorders of phosphorus metabolism; E87.6 Hypokalemia; I95.9 Hypotension, unspecified; T17.218A Gastric contents in pharynx causing other injury, initial encounter; K59.00 Constipation, unspecified; I10 Essential (primary) hypertension; Z93.59 Other cystostomy status; R13.10 Dysphagia, unspecified; K21.9 Gastro-esophageal reflux disease without esophagitis; N31.9 Neuromuscular dysfunction of bladder, unspecified; J45.909 Unspecified asthma, uncomplicated; N40.0 Benign prostatic hyperplasia without lower urinary tract symptoms; Z74.01 Bed confinement status; D64.9 Anemia, unspecified; Z66 Do not resuscitate; Z93.1 Gastrostomy status
CPT/HCPCS: 36415; 71045-TC-FY; 71250-TC; 71260-TC; 80048; 80053; 81003; 81015; 82550; 82962; 83605; 83735; 84100; 84484; 85025; 85027; 85610; 87040; 87086; 87186; 87804; 87899; 93005; 93010; 93306-TC; 94640; 94660; 99282-25; G0378; G0480; J1644; J7030